=== PATIENT | female | born 1955 | race Caucasian/White ===

== ENCOUNTER 2022-05-09 15:45 | Outpatient (REF) | payer MEDICARE, MEDICAID, SELFPAY ==
--- NOTE | ~2022-05-09 | XR_ITS ---
EXAMINATION: XR FEMUR, RIGHT XR LUMBAR SPINE CLINICAL INFORMATION: Right leg pain. COMPARISON: None TECHNIQUE: Lumbar spine 3 views. Right femur 2 views. FINDINGS: RIGHT FEMUR: There is severe loss of right hip joint space with subchondral cystic changes and sclerosis. The rest of the right femur is intact. No periosteal elevation or erosion changes. The soft tissues are normal. LUMBAR SPINE: There is normal lumbar lordosis. The vertebral heights and alignment are normal. There is moderate loss of L1-L2 disc height with endplate sclerosis. Rest of the disc heights are normal. There is mild L5-S1 facet joint arthropathy and hypertrophy. No visible acute fracture, dislocation or lytic process seen. XR/XR femur RT 2V IMPRESSION: Severe degenerative arthritic changes right hip joint. No acute fracture or dislocation right hip. The right femur is unremarkable. Moderate degenerative changes L1-L2 disc level. There is bilateral L5-S1 facet joint arthropathy and hypertrophy.
--- NOTE | ~2022-05-09 | XR_ITS ---
EXAMINATION: XR FEMUR, RIGHT XR LUMBAR SPINE CLINICAL INFORMATION: Right leg pain. COMPARISON: None TECHNIQUE: Lumbar spine 3 views. Right femur 2 views. FINDINGS: RIGHT FEMUR: There is severe loss of right hip joint space with subchondral cystic changes and sclerosis. The rest of the right femur is intact. No periosteal elevation or erosion changes. The soft tissues are normal. LUMBAR SPINE: There is normal lumbar lordosis. The vertebral heights and alignment are normal. There is moderate loss of L1-L2 disc height with endplate sclerosis. Rest of the disc heights are normal. There is mild L5-S1 facet joint arthropathy and hypertrophy. No visible acute fracture, dislocation or lytic process seen. XR/XR lumbar spine 2-3V IMPRESSION: Severe degenerative arthritic changes right hip joint. No acute fracture or dislocation right hip. The right femur is unremarkable. Moderate degenerative changes L1-L2 disc level. There is bilateral L5-S1 facet joint arthropathy and hypertrophy.
== END 2022-05-09 15:46 | disposition home or self-care (01) ==
LOC: HO.XRAY 15:45
PROVIDERS: PCP Pediatrics; Visit Provider General Practice
DX: M79.604 Pain in right leg (principal)
CPT/HCPCS: 72100; 73552

== ENCOUNTER 2022-06-10 09:41 | Outpatient (REF) | payer MEDICARE, MEDICAID, SELFPAY ==
--- NOTE | ~2022-06-10 | XR_ITS ---
EXAMINATION: XR PELVIS CLINICAL INFORMATION: Pain COMPARISON: Right femur x-ray April 2022 TECHNIQUE: AP view of the pelvis. FINDINGS: There is severe arthritis of the right hip joint with joint space narrowing, osteophyte formation and subchondral cyst formation. There is moderate arthritis of the left hip joint. Bones of the pelvis are normal. There are degenerative changes of the lower lumbar spine. Soft tissues are unremarkable. XR/XR pelvis 1-2V IMPRESSION: Bilateral hip arthritis, right greater than left.
== END 2022-06-10 09:42 | disposition home or self-care (01) ==
LOC: HO.HOSX 09:41
PROVIDERS: Visit Provider Orthopaedic Surgery
DX: M16.11 Unilateral primary osteoarthritis, right hip (principal)
CPT/HCPCS: 72170; 99202

== ENCOUNTER 2022-07-02 23:38 | Emergency (ER) | payer MEDICARE, MEDICAID, SELFPAY ==
--- NOTE | ~2022-07-02 | CT_ITS ---
EXAMINATION: CT HEAD WITHOUT CONTRAST CLINICAL INFORMATION: Confusion COMPARISON: None. TECHNIQUE: Contiguous axial imaging was performed from the skull base to vertex without intravenous contrast. This CT examination was performed using dose optimization techniques as appropriate, variously including the following: * Automated exposure control * Adjustment of mA and/or kV according to patient size (this includes techniques or standardized protocols for targeted exams where dose is matched to indication/reason for exam; i.e. extremities or head) Use of iterative reconstruction technique DLP: 567 mGy-cm. FINDINGS: There is no evidence of acute intracranial hemorrhage or territorial infarction. No abnormal mass effect or midline shift is seen. Doty to white matter differentiation is well preserved. No extra-axial fluid collections are identified. No hydrocephalus. No significant volume loss. There is no abnormal attenuation within the brain parenchyma. The osseous structures and soft tissues are normal. Partially opacified left sphenoid sinus and bilateral ethmoid air cells. The mastoid air cells and visualized portions of the paranasal sinuses are otherwise well aerated. CT/CT head/brain wo IV con IMPRESSION: No acute intracranial pathology.
--- NOTE | ~2022-07-02 | XR_ITS ---
EXAMINATION: XR CHEST CLINICAL INFORMATION: Weakness COMPARISON: None TECHNIQUE: Frontal view of the chest was obtained. FINDINGS: The lungs are well-expanded and clear. Heart size and pulmonary vascularity is normal. No gross bony abnormality seen. XR/XR chest 1V IMPRESSION: Unremarkable chest exam.
--- NOTE | 2022-07-02 23:53 | ECG_ITS ---
Test Reason : medical Clerance Blood Pressure : / mmHG Vent. Rate : 068 BPM Atrial Rate : 068 BPM P-R Int : 128 ms QRS Dur : 066 ms QT Int : 420 ms P-R-T Axes : 072 037 065 degrees QTc Int : 446 ms Normal sinus rhythm Normal ECG No previous ECGs available Referred By: Irasema Desai Electronically Signed By:ULYSSES DURON
[2022-07-02 23:55] VITALS: BP 137/83; PULSE 87; RESP 22; TEMP 36.8; O2SAT 96; BMI 26.5
--- NOTE | 2022-07-02 23:57 | ED_ITS ---
HPI - Weakness General Chief complaint: Psychiatric Symptoms Stated complaint: ALTERED ? COVID PER EMS Time Seen by Provider: 07/02/22 23:53 Source: patient Mode of arrival: EMS Limitations: no limitations History of Present Illness HPI Narrative: 66 yo female with hx of anxiety, bipolar, arthritis, asthma, hypothyroidism comes in with c/o not feeling well this week with cough and fevers - her partner told her she most likely has COVID - no home tests reported. She also notes she is not vaccinated. She is distraught and having anxiety due to the fact that her landlord is increasing her rent and she has lived there a long time. She thinks they are doing this to get her to leave. She does not want to leave and has planned to stay there forever. She states because of this she stopped taking all of her medications to at home MD Complaint: lack of energy (URI symptoms, anxiety over rent increase and not taking her meds to at home. ) Onset (ago): day(s) (unsure but states this week ) Duration: progressively worsening Location: generalized Severity: moderate Quality: dull Relieving factors: none Exacerbating factors: other (stress) Context: depression and other (life stress) Associated symptoms: fever/chills, loss of appetite and other (runny nose) Related Data Home Medications Medication Instructions Recorded Confirmed acetaminophen 650 mg 1 tab PO Q8H PRN pain 07/03/22 07/03/22 tablet,extended release albuterol sulfate 90 mcg/actuation 2 puff inhalation Q4H 07/03/22 07/03/22 aerosol inhaler calcium carbonate 600 mg-vitamin 1 tab PO BID 07/03/22 07/03/22 D3 10 mcg (400 unit) tablet lamotrigine 100 mg tablet 1 tab PO TID 07/03/22 07/03/22 levothyroxine 50 mcg tablet 1 tab PO DAILY 07/03/22 07/03/22 meloxicam 7.5 mg tablet 1 tab PO BID 07/03/22 07/03/22 oxcarbazepine 150 mg tablet 1 tab PO DAILY 07/03/22 07/03/22 oxybutynin chloride 15 mg 1 tab PO DAILY 07/03/22 07/03/22 tablet,extended release 24 hr paroxetine HCl 20 mg tablet 1 tab PO DAILY 07/03/22 07/03/22 tolterodine 4 mg capsule,extended 1 cap PO DAILY 07/03/22 07/03/22 release 24 hr Allergies Allergy/AdvReac Type Severity Reaction Status Date / Time penicillin V Allergy Unknown Verified 03/08/13 00:00 Review of Systems Review of Systems: Constitutional : No Fever, pos Chills ENT/Mouth : No Ear Pain, pos Nasal Congestion, No sore throat Eyes: No Eye Pain, No Swelling, No Redness Cardiovascular : No Chest Pain, No SOB Respiratory : pos Cough, No Sputum, No Dyspnea Gastrointestinal : No Nausea, No Vomiting, No Diarrhea, No Hematochezia, No Melena Genitourinary : No Dysuria, No Urinary Frequency, No Hematuria Musculoskeletal : No Myalgias Skin : No Skin Lesions, No rash Neuro : pos Weakness, No Numbness, No Paresthesias, No Dizziness, No Headache Psych : positive Anxiety, positive Depression, positive SI no HI Heme/Lymph: No Lymphadenopathy Endocrine : No Polyuria, No Polydipsia All other systems reviewed and are negative [facility] Past Medical History Attestation statement: The following information was validated with the patient. Medical History Asthma Bipolar disorder Hypothyroid Osteoarthritis of right hip Social History Social History (Updated 07/02/22 @ 23:57 by Irasema Desai DO) Patient Tobacco Use Status: Tobacco use Unknown Advance Directives: No Current occupational status: retired Physical Exam Vital Signs: Vital Signs: Last Vital Signs Temp 97.8 F 07/03/22 02:27 Pulse 71 07/03/22 02:27 Resp 17 07/03/22 02:27 BP 139/79 07/03/22 02:27 Pulse Ox 97 07/03/22 02:27 O2 Del Method 07/03/22 02:27 BMI result Body Mass Index 26.5 Appearance: Alert. Oriented X3 ( slow to respond initially). Anxious tremulous mild acute distress. Eyes: Pupils equal, round and reactive to light. ENT: Pharynx normal. Neck: Normal inspection. Neck supple. CVS: Normal heart rate and rhythm. Pulses normal. Respiratory: No respiratory distress. Breath sounds normal. Abdomen: Soft and non-tender. Skin: Skin warm and dry. Normal skin color. Normal skin turgor. Extremities: No lower extremity edema. No calf ttp Neuro: Oriented X 3. No motor deficit. No sensory deficit. CN 2-12 intact Course Course Course Narrative: + COVID no hypoxia no pneumonia will obtain CT head given intermittent confusion at home CT head negative Physician observation started at 250am. Patient placed in physician observation because the patient needed more time for BHN to assess need for psych admission. At the time observation was started the patient's vitals were stable, patient is alert and oriented but anxious Neuro: nonfocal, CV RRR, Lungs clear MDM - Weakness MDM Narrative Medical decision making narrative: 66 yo female with hx of anxiety, bipolar, arthritis, asthma, hypothyroidism here with c/o URI symptoms and concerned she has COVID she is not vaccinated - test ordered no hypoxia will also obtain CXR. At this time she also admits to SI due to issues with landlord - once medically cleared will need BHN consult Lab Data Result diagrams: 07/03/22 01:11 07/03/22 01:11 Labs: Lab Results 07/02/22 07/03/22 07/03/22 Range/Units 23:56 00:15 01:11 WBC 3.3 L (4.8-10.8) X10*3/uL RBC 4.24 (4.20-5.50) X10*6/uL Hgb 12.9 (12.0-16.0) g/dl Hct 36.7 L (37.0-47.0) % MCV 86.6 (80.0-98.0) fL MCH 30.4 (27.0-33.0) pg MCHC 35.1 H (31.0-35.0) g/dl RDW 12.4 (11.0-16.0) % Plt Count 162 (160-400) X10*3/uL MPV 10.5 (9.4-12.3) fL Immature Gran % (Auto) 0.6 H (0.0-0.4) % Neut % (Auto) 50.8 (45-73) % Lymph % (Auto) 32.1 (20-40) % [place] % (Auto) 15.9 H (2-11) % Eos % (Auto) 0.0 (0-4) % Baso % (Auto) 0.6 (0-2) % Lymph # (Auto) 1.1 L (1.2-4.9) X10*3/uL [place] # (Auto) 0.5 (0.1-1.2) X10*3/uL Eos # (Auto) 0.0 (0.0-0.4) X10*3/uL Baso # (Auto) 0.0 (0.0-0.2) X10*3/uL Abs Immat Gran (auto) 0.02 (0.00-0.03) X10*3/uL Absolute Neuts (auto) 1.7 L (2.0-8.3) x10*3/uL Absolute Nucleated RBC 0.000 (0.0-0.012) X10*3/uL Nucleated RBC % (auto) 0.0 (0.0-0.2) /100WBC Sodium (135-145) mmol/L Potassium (3.3-5.1) mmol/L Chloride (96-108) mmol/L Carbon Dioxide (22-29) mmol/L Anion Gap (12-20) BUN (9-16) mg/dL Creatinine (0.5-1.4) mg/dL Estim Creat Clear Calc Estimated GFR POC Glucose 133 H (60-115) mg/dL Random Glucose (60-115) mg/dL Calcium (8.4-10.2) mg/dL Magnesium (1.6-2.6) mg/dL Total Bilirubin (0.0-1.0) mg/dL Direct Bilirubin (0.0-0.5) mg/dL AST (5-31) U/L ALT (0-31) U/L Alkaline Phosphatase (39-117) U/L Troponin I High Sens (<3.5-17.0) ng/L Total Protein (6.5-8.0) g/dL Albumin (3.5-5.0) g/dL Lipase (8-78) U/L TSH (0.32-4.0) uIU/mL COVID-19 (SHERLY) Positive A (Negative) COVID-19 Clin Com See Note 07/03/22 07/03/22 07/03/22 Range/Units 01:11 01:11 01:11 WBC (4.8-10.8) X10*3/uL RBC (4.20-5.50) X10*6/uL Hgb (12.0-16.0) g/dl Hct (37.0-47.0) % MCV (80.0-98.0) fL MCH (27.0-33.0) pg MCHC (31.0-35.0) g/dl RDW (11.0-16.0) % Plt Count (160-400) X10*3/uL MPV (9.4-12.3) fL Immature Gran % (Auto) (0.0-0.4) % Neut % (Auto) (45-73) % Lymph % (Auto) (20-40) % [place]phill % (Auto) (2-11) % Eos % (Auto) (0-4) % Baso % (Auto) (0-2) % Lymph # (Auto) (1.2-4.9) X10*3/uL [place] # (Auto) (0.1-1.2) X10*3/uL Eos # (Auto) (0.0-0.4) X10*3/uL Baso # (Auto) (0.0-0.2) X10*3/uL Abs Immat Gran (auto) (0.00-0.03) X10*3/uL Absolute Neuts (auto) (2.0-8.3) x10*3/uL Absolute Nucleated RBC (0.0-0.012) X10*3/uL Nucleated RBC % (auto) (0.0-0.2) /100WBC Sodium 140 (135-145) mmol/L Potassium 3.6 (3.3-5.1) mmol/L Chloride 108 (96-108) mmol/L Carbon Dioxide 17 L (22-29) mmol/L Anion Gap 19 (12-20) BUN 12 (9-16) mg/dL Creatinine 1.03 (0.5-1.4) mg/dL Estim Creat Clear Calc 48.5 Estimated GFR 54 POC Glucose (60-115) mg/dL Random Glucose 111 (60-115) mg/dL Calcium 9.0 (8.4-10.2) mg/dL Magnesium 1.7 (1.6-2.6) mg/dL Total Bilirubin 0.6 (0.0-1.0) mg/dL Direct Bilirubin 0.2 (0.0-0.5) mg/dL AST 22 (5-31) U/L ALT 16 (0-31) U/L Alkaline Phosphatase 63 (39-117) U/L Troponin I High Sens 4.2 (<3.5-17.0) ng/L Total Protein 6.7 (6.5-8.0) g/dL Albumin 4.4 (3.5-5.0) g/dL Lipase 11 (8-78) U/L TSH 1.09 (0.32-4.0) uIU/mL COVID-19 (SHERLY) (Negative) COVID-19 Clin Com ECG Data Attestation: I personally reviewed and interpreted this ECG as follows: ECG interpretation date: 07/03/22 ECG interpretation time: 01:07 Interpretation: Rate: 68 Rhythm: NSR [place]: normal Normal P waves. Normal BRIDGETTE. Normal QRS complex. ST T wave : t wave inversions V1-V2 no SERGEI qTC: normal prior studies: no acute ischemia no priors The study has been interpreted contemporaneously by me. . Discharge Plan Discharge Clinical Impression: Suicidal ideation, Anxiety attack, COVID-19 Patient Disposition: Still a Patient Prescriptions: No Action oxcarbazepine 150 mg tablet 1 tab PO DAILY oxybutynin chloride 15 mg tablet extended release 24hr 1 tab PO DAILY tolterodine 4 mg capsule,extended release 24hr 1 cap PO DAILY acetaminophen 650 mg tablet extended release 1 tab PO Q8H PRN (Reason: pain) meloxicam 7.5 mg tablet 1 tab PO BID levothyroxine 50 mcg tablet 1 tab PO DAILY paroxetine HCl 20 mg tablet 1 tab PO DAILY albuterol sulfate 90 mcg/actuation HFA aerosol inhaler 2 puff INHALATION Q4H lamotrigine 100 mg tablet 1 tab PO TID calcium carbonate-vitamin D3 600 mg-10 mcg (400 unit) tablet 1 tab PO BID
[2022-07-03 00:14] LABS: COVID-19 Test Positive (Negative)
[2022-07-03 00:20] LABS: Glucose, Whole Blood 133 mg/dL (60-115)
[2022-07-03 01:15] LABS: MANUAL DIFF FLAG NO
[2022-07-03 01:16] LABS: Basophils Percent Auto 0.6 % (0-2); Hematocrit 36.7 % (37.0-47.0); Hemoglobin 12.9 g/dl (12.0-16.0); Imm Gran Abs Auto 0.02 X10*3/uL (0.00-0.03); Imm Gran Pct Auto 0.6 % (0.0-0.4); Lymphocytes Absolute Auto 1.1 X10*3/uL (1.2-4.9); Lymphocytes Percent Auto 32.1 % (20-40); Mean Corpuscular HGB Conc 35.1 g/dl (31.0-35.0); Mean Corpuscular Hemoglobin 30.4 pg (27.0-33.0); Mean Corpuscular Volume 86.6 fL (80.0-98.0); Mean Platelet Volume 10.5 fL (9.4-12.3); Monocytes Absolute Auto 0.5 X10*3/uL (0.1-1.2); Monocytes Percent Auto 15.9 % (2-11); Neutrophils Absolute Auto 1.7 x10*3/uL (2.0-8.3); Neutrophils Percent Auto 50.8 % (45-73); Platelet Count 162 X10*3/uL (160-400); Red Blood Count 4.24 X10*6/uL (4.20-5.50); Red Cell Distribution Width 12.4 % (11.0-16.0); White Blood Count 3.3 X10*3/uL (4.8-10.8)
[2022-07-03 01:35] LABS: Troponin-I High Sensitivity 4.2 ng/L (<3.5-17.0)
[2022-07-03 01:37] LABS: Alanine Aminotransferase 16 U/L (0-31); Albumin Level 4.4 g/dL (3.5-5.0); Alkaline Phosphatase 63 U/L (39-117); Anion Gap 19 (12-20); Aspartate Amino Transferase 22 U/L (5-31); Bilirubin Direct 0.2 mg/dL (0.0-0.5); Bilirubin Total 0.6 mg/dL (0.0-1.0); Blood Urea Nitrogen 12 mg/dL (9-16); Carbon Dioxide 17 mmol/L (22-29); Chloride 108 mmol/L (96-108); Creatinine Clr Calc Pharmacy 48.5; Estimated Glomerular Filt Rate 54; Glucose Random 111 mg/dL (60-115); Lipase 11 U/L (8-78); Magnesium 1.7 mg/dL (1.6-2.6); Potassium 3.6 mmol/L (3.3-5.1); Sodium 140 mmol/L (135-145); Total Protein 6.7 g/dL (6.5-8.0)
[2022-07-03 01:57] LABS: TSH reflex Free T4 1.09 uIU/mL (0.32-4.0)
[2022-07-03] MEDS: Acetaminophen 325 MG TABLET 650 MG PO (02:22)
[2022-07-03] MEDS: ALPRAZolam 0.5 MG TABLET PO (02:23)
[2022-07-03 02:27] VITALS: BP 139/79; PULSE 71; RESP 17; TEMP 36.6; O2SAT 97
[2022-07-03 06:14] VITALS: BP 121/81; PULSE 82; RESP 18; O2SAT 97
--- NOTE | 2022-07-03 06:20 | PC.NURSE ---
pt awake, A&Ox3, speaking clear full sentences. pt very tearful talking about her past and her current life stressors. pt states she did not mean it when she said she didnt want to live anymore. she said she only stopped taking her meds because it was all too overwhelming and whats the point. pt regretful, denying SI/HI. calm and cooperative. eating sandwich and drinking shaheen joan.
--- NOTE | 2022-07-03 07:13 | PHA.MEDREC ---
Pharmacy Consult ? Medication Reconciliation Pharmacy has reviewed the medication reconciliation done by Keon.
--- NOTE | 2022-07-03 07:18 | MHC.CARE ---
Skye Smart sheet submitted
[2022-07-03] MEDS: NaPROXEN 250 MG TABLET PO (09:49)
[2022-07-03] MEDS: PARoxetine HCL 20 MG TABLET PO (09:50)
[2022-07-03] MEDS: Calcium + Vitamin D 250 MG TABLET 500 MG PO (09:51)
[2022-07-03] MEDS: OXcarbazepine 150 MG TABLET 750 MG PO (09:52)
[2022-07-03] MEDS: Levothyroxine Sodium 50 MCG TABLET PO (09:53)
[2022-07-03] MEDS: Tolterodine Tartrate LA 4 MG CAP.ER.24H PO (09:54)
[2022-07-03] MEDS: lamoTRIgine 100 MG TABLET PO ×2 (09:54→14:52)
[2022-07-03] MEDS: Albuterol Sulfate 90 MCG 8 GM INHALER 2 PUFF INHALE ×2 (13:36→16:10)
[2022-07-03 13:59] VITALS: BP 119/69; PULSE 83; RESP 16; TEMP 36.8; O2SAT 98
[2022-07-03] MEDS: Cyclobenzaprine HCl 10 MG TABLET PO (14:52)
== END 2022-07-03 17:14 | disposition home or self-care (01) ==
PROVIDERS: Emergency Provider Emergency Medicine
DX: F41.1 Generalized anxiety disorder (principal); F43.0 Acute stress reaction; R45.851 Suicidal ideations; U07.1 COVID-19; R50.9 Fever, unspecified; R05.9 Cough, unspecified; R51.9 Headache, unspecified; Z79.899 Other long term (current) drug therapy
CPT/HCPCS: 36415; 70450; 71045; 80048; 80076; 82947; 83690; 83735; 84443; 84484; 85025; 87635; 93005; 99285

== ENCOUNTER 2022-07-07 20:39 | Emergency (ER) | payer MEDICARE, MEDICAID, SELFPAY ==
--- NOTE | ~2022-07-07 | XR_ITS ---
EXAMINATION: XR CHEST CLINICAL INFORMATION: Covid positive. Cough. Shortness of breath. COMPARISON: Chest x-ray 07/03/2022 TECHNIQUE: Frontal portable view of the chest was obtained. 9:35 PM FINDINGS: Lungs are clear. No pulmonary vascular congestion. There is no pleural effusion. The heart size is normal. The cardiac and mediastinal contours are normal. There are calcifications of the thoracic aorta. There are multilevel degenerative changes of dorsal spine. XR/XR chest 1V IMPRESSION: Unremarkable examination.
[2022-07-07 21:11] VITALS: BP 137/74; BP 142/82; PULSE 78; PULSE 82; RESP 14; TEMP 36.5; O2SAT 98; BMI 21.0
--- NOTE | 2022-07-07 21:40 | ED.ABDPAIN ---
HPI - Abdominal Pain General Chief Complaint: Abdominal Pain Stated Complaint: ABD PAIN Time Seen by Provider: 07/07/22 21:11 Source: patient Mode of arrival: EMS Limitations: no limitations History of Present Illness HPI narrative: 66-year-old female who presents emergency department for evaluation of multiple complaints. The patient was see your emergency department on 07/02/2022 for anxiety secondary to social stressors and having stopped all her medications. Patient also had an upper respiratory infection 1-2 days prior to presentation. The patient was found to be COVID-19 positive, she was not vaccinated COVID. The patient restarted her medications but states that her anxiety is still severe. The patient came to emergency department by ambulance this evening for evaluation headache, abdominal pain,diarrhea and feeling weak. She states that she has a ?rushing ?sensation in her head whenever she stands up. This was present during her last visit and she did have a negative CT scan of the brain. She states that the symptoms is intermittent and only there when she stands up, the symptom is [id number] in intensity. Patient also states that she has had a cough which is nonproductive. She has had subjective fever but no chills. She has had rhinorrhea. She denied chest pain, shortness of breath or dyspnea on exertion. She denied nausea or vomiting. She states that she has multiple episodes of green diarrheal stool daily. She states she is having abdominal pain x5 days and she points to her suprapubic area when asked to localize the pain. She states that it is a sharp stabbing pain which was initially intermittent but is now constant and is 5/10 at its worst. She denied frequency, urgency or diarrhea. The patient states she has been eating and drinking well. She states she is very anxious but is not suicidal or homicidal. MD elicited complaint: abdominal pain Pertinent past history: none Onset (ago): week(s) (5) Location: suprapubic Severity: moderate Pain scale (0-10): 5 Quality: sharp Radiation: none Migration to: no migration Exacerbating factors: nothing Relieving factors: nothing Associated symptoms: diarrhea, fever, chills and other (COVID-19 positive-nonproductive cough) Related Data Home Medications Medication Instructions Recorded Confirmed acetaminophen 650 mg 1 tab PO Q8H PRN pain 07/03/22 07/03/22 tablet,extended release albuterol sulfate 90 mcg/actuation 2 puff inhalation Q4H 07/03/22 07/03/22 aerosol inhaler calcium carbonate 600 mg-vitamin 1 tab PO BID 07/03/22 07/03/22 D3 10 mcg (400 unit) tablet lamotrigine 100 mg tablet 1 tab PO TID 07/03/22 07/03/22 levothyroxine 50 mcg tablet 1 tab PO DAILY 07/03/22 07/03/22 meloxicam 7.5 mg tablet 1 tab PO BID 07/03/22 07/03/22 oxcarbazepine 150 mg tablet 5 tab PO BEDTIME 07/03/22 07/03/22 oxybutynin chloride 15 mg 1 tab PO DAILY 07/03/22 07/03/22 tablet,extended release 24 hr paroxetine HCl 20 mg tablet 1 tab PO DAILY 07/03/22 07/03/22 tolterodine 4 mg capsule,extended 1 cap PO DAILY 07/03/22 07/03/22 release 24 hr Previous Rx's Medication Instructions Recorded cefuroxime axetil 250 mg tablet 250 mg PO BID uti 7 days #14 tabs 07/03/22 Allergies Allergy/AdvReac Type Severity Reaction Status Date / Time penicillin V Allergy Unknown Verified 03/08/13 00:00 Review of Systems Review of Systems Yes all other systems are reviewed and are negative [facility] Past Medical History [facility] Narrative: Past medical history: COVID positive 07/02/2022, not vaccinated against COVID 19. Past surgical history: Appendectomy, tonsillectomy. Social history: She denies tobacco use. She denies alcohol use. She denies drug use. Medical History Asthma Bipolar disorder Hypothyroid Osteoarthritis of right hip Social History Social History Patient Tobacco Use Status: Tobacco use Unknown Advance Directives: No Advance Directives Information Provided: No Current occupational status: retired Physical Exam ED Vital Signs: Vital Signs - 24 hr 07/07/22 21:11 Temperature 97.7 F Pulse Rate 78 Respiratory Rate 14 Blood Pressure 137/74 Pulse Oximetry 98 Oxygen Delivery Method Room Air BMI result Body Mass Index 21.0 Const Other: Awake, alert, female patient, she is very anxious, she is tremulous, she is pleasant and cooperative, she answers all questions appropriately, she does not appear to be in distress Orientation/consciousness: oriented to person and oriented to place HENNC Head: Yes normal to inspection, Yes normocephalic and Yes atraumatic Ears: external ears normal General nose exam: Normal external nose present Face and sinus: Yes normal facial exam Mouth: Normal oral and palatal mucosa present Throat: Yes posterior oropharynx normal Eyes General: appearance normal, both eyes and all related structures Pupils: Equal, round and reactive pupils present Neck Neck: Yes normal visual inspection, Yes no lymphadenopathy, Yes trachea midline and Yes supple Chest Chest palpation & inspection: normal inspection of the chest and normal palpation of entire chest wall Resp Effort & Inspection: normal respiratory effort and able to speak in complete sentences Auscultation: clear to auscultation bilaterally Cardio Rate: regular rate Rhythm: regular rhythm Heart sounds: S1 normal heart sound present, S2 normal heart sound present and no murmurs GI Inspection: Yes normal to inspection Palpation (GI): Soft to palpation, Tenderness to palpation present (GI) suprapubicly (Mild to moderate) and no guarding Auscultation: normal bowel sounds General: Yes no CVA tenderness Back/Spine/Pelvis Back: no CVA tenderness Skin General skin exam: no rashes or lesions noted Neuro General: oriented to person and oriented to place Cranial nerves: Yes CN's II-XII intact bilaterally and Yes Equal, round and reactive pupils present Cognition (Neuro): normal cognition Motor exam (neuro): 5/5 motor strength present throughout Extrem General: Yes normal to inspection Psych Appearance: grossly normal and well kempt Speech and movement: Normal speech and movement present Affect: Anxious affect present Attitude: cooperative Thought process: Normal thought process present Thought content: Normal thought content present Course Course Course Narrative: 66-year-old female who has a history of anxiety who was here in the emergency department on 07/02/2022 (5 days prior to evaluation ) for anxiety secondary to social structures and secondary to being non- complained with medications. During that visit she also URI symptoms and was found to be COVID positive. Patient returns today for evaluation of a head rushing sensation whenever she stands, subjective fever, nonproductive cough, suprapubic pain which was initially intermittent but now constant. The patient has been able to eat and drink without any difficulty. She denied chest pain, shortness of breath or dyspnea on exertion. She is experiencing multiple episodes of diarrhea daily. Patient's vital signs were normal with a room air O2 saturation of 98%. The patient's physical examination did reveal suprapubic tenderness otherwise was unremarkable. I did order laboratory evaluation includes CBC, CMP, PT/INR, PTT, lipase, urinalysis. I will obtain a chest x-ray on the patient. Patient was ordered to get normal saline x1 L and Toradol 15 mg IV for her abdominal pain. Patient was also given Ativan 1 mg orally. 2242: Laboratory evaluation: WBC normal 4900. Anemia with an H&H of 12 and 35-chronic. Creatinine elevated 1.47. LFTs normal. Lipase not elevated. Radiology evaluation: Chest x-ray, one view: Radiologist impression: Unremarkable examination. Patient is feeling better after the above treatment. Patient's symptoms are consistent with COVID-19 infection, at this time I do not think the patient has pneumonia in do not think this needs to be hospitalized. I did discuss isolation in on vaccinated patient's with her. I told her she should isolate at home for at least 10 days and she should have no fever for at least 24 hours before she ends isolation. She was given printed and verbal instructions and discharged home. MDM - Abdominal Pain Lab Data Result diagrams: 07/07/22 22:02 07/07/22 22:02 Labs: Lab Results 07/07/22 07/07/22 07/07/22 Range/Units 22:02 22:02 22:02 WBC 4.9 (4.8-10.8) X10*3/uL RBC 4.12 L (4.20-5.50) X10*6/uL Hgb 12.4 (12.0-16.0) g/dl Hct 35.2 L (37.0-47.0) % MCV 85.4 (80.0-98.0) fL MCH 30.1 (27.0-33.0) pg MCHC 35.2 H (31.0-35.0) g/dl RDW 12.2 (11.0-16.0) % Plt Count 210 D (160-400) X10*3/uL MPV 9.9 (9.4-12.3) fL Immature Gran % (Auto) 0.6 H (0.0-0.4) % Neut % (Auto) 51.0 (45-73) % Lymph % (Auto) 36.6 (20-40) % [place] % (Auto) 10.4 (2-11) % Eos % (Auto) 0.8 (0-4) % Baso % (Auto) 0.6 (0-2) % Lymph # (Auto) 1.8 (1.2-4.9) X10*3/uL [place] # (Auto) 0.5 (0.1-1.2) X10*3/uL Eos # (Auto) 0.0 (0.0-0.4) X10*3/uL Baso # (Auto) 0.0 (0.0-0.2) X10*3/uL Abs Immat Gran (auto) 0.03 (0.00-0.03) X10*3/uL Absolute Neuts (auto) 2.5 (2.0-8.3) x10*3/uL Absolute Nucleated RBC 0.000 (0.0-0.012) X10*3/uL Nucleated RBC % (auto) 0.0 (0.0-0.2) /100WBC PT 10.8 (10.0-13.1) SEC INR 0.9 (0.9-1.1) APTT 22.7 L (26.0-36.4) SEC Sodium 142 (135-145) mmol/L Potassium 3.4 (3.3-5.1) mmol/L Chloride 107 (96-108) mmol/L Carbon Dioxide 24 (22-29) mmol/L Anion Gap 14 (12-20) BUN 10 (9-16) mg/dL Creatinine 1.47 H (0.5-1.4) mg/dL Estim Creat Clear Calc 30.2 Estimated GFR 36 Random Glucose 111 (60-115) mg/dL Lactic Acid (0.5-2.0) mmol/L Calcium 10.3 H D (8.4-10.2) mg/dL Total Bilirubin 0.6 (0.0-1.0) mg/dL AST 17 (5-31) U/L ALT 13 (0-31) U/L Alkaline Phosphatase 55 (39-117) U/L Total Protein 6.7 (6.5-8.0) g/dL Albumin 4.5 (3.5-5.0) g/dL Lipase 20 (8-78) U/L 07/07/22 Range/Units 22:02 WBC (4.8-10.8) X10*3/uL RBC (4.20-5.50) X10*6/uL Hgb (12.0-16.0) g/dl Hct (37.0-47.0) % MCV (80.0-98.0) fL MCH (27.0-33.0) pg MCHC (31.0-35.0) g/dl RDW (11.0-16.0) % Plt Count (160-400) X10*3/uL MPV (9.4-12.3) fL Immature Gran % (Auto) (0.0-0.4) % Neut % (Auto) (45-73) % Lymph % (Auto) (20-40) % [place] % (Auto) (2-11) % Eos % (Auto) (0-4) % Baso % (Auto) (0-2) % Lymph # (Auto) (1.2-4.9) X10*3/uL [place] # (Auto) (0.1-1.2) X10*3/uL Eos # (Auto) (0.0-0.4) X10*3/uL Baso # (Auto) (0.0-0.2) X10*3/uL Abs Immat Gran (auto) (0.00-0.03) X10*3/uL Absolute Neuts (auto) (2.0-8.3) x10*3/uL Absolute Nucleated RBC (0.0-0.012) X10*3/uL Nucleated RBC % (auto) (0.0-0.2) /100WBC PT (10.0-13.1) SEC INR (0.9-1.1) APTT (26.0-36.4) SEC Sodium (135-145) mmol/L Potassium (3.3-5.1) mmol/L Chloride (96-108) mmol/L Carbon Dioxide (22-29) mmol/L Anion Gap (12-20) BUN (9-16) mg/dL Creatinine (0.5-1.4) mg/dL Estim Creat Clear Calc Estimated GFR Random Glucose (60-115) mg/dL Lactic Acid 1.2 (0.5-2.0) mmol/L Calcium (8.4-10.2) mg/dL Total Bilirubin (0.0-1.0) mg/dL AST (5-31) U/L ALT (0-31) U/L Alkaline Phosphatase (39-117) U/L Total Protein (6.5-8.0) g/dL Albumin (3.5-5.0) g/dL Lipase (8-78) U/L Discharge Plan Discharge Clinical Impression: Abdominal pain, Headache, Weakness, Acute dehydration, COVID-19 virus infection Patient Disposition: Home, Self-Care Instructions: COVID-19 (Coronavirus Disease 2019) (ED) Additional Instructions: Your blood work was unremarkable. The chest x-ray at this time shows that you do not have pneumonia which is reassuring. Take ibuprofen 200 mg pills, 3 pills every 6 hours as needed for pain or fever Take Tylenol (acetaminophen) 500 mg pills, 2 pills every 4 to 6 hours as needed for pain or fever Take Zofran ODT 4 mg pills, 1 pill dissolved in your mouth every 8 hours as needed for nausea and vomiting. You should isolate at home for at least 10 days, you need to have no fever for at least 24 hours at the end of your isolation,before you go out again. Increase your fluid intake to help prevent dehydration and that should hopefully help with your weakness as well pain Follow-up with your doctor in 2 days. Please return to the emergency department if your symptoms get worse or if you develop any symptoms that are concerning to you. Prescriptions: No Action oxcarbazepine 150 mg tablet 5 tab PO BEDTIME oxybutynin chloride 15 mg tablet extended release 24hr 1 tab PO DAILY tolterodine 4 mg capsule,extended release 24hr 1 cap PO DAILY acetaminophen 650 mg tablet extended release 1 tab PO Q8H PRN (Reason: pain) meloxicam 7.5 mg tablet 1 tab PO BID levothyroxine 50 mcg tablet 1 tab PO DAILY paroxetine HCl 20 mg tablet 1 tab PO DAILY albuterol sulfate 90 mcg/actuation HFA aerosol inhaler 2 puff INHALATION Q4H lamotrigine 100 mg tablet 1 tab PO TID calcium carbonate-vitamin D3 600 mg-10 mcg (400 unit) tablet 1 tab PO BID cefuroxime axetil 250 mg tablet 250 mg PO BID 7 Days Qty: 14 0RF
[2022-07-07 22:15] LABS: MANUAL DIFF FLAG NO
[2022-07-07 22:16] LABS: Basophils Percent Auto 0.6 % (0-2); Eosinophils Percent Auto 0.8 % (0-4); Hematocrit 35.2 % (37.0-47.0); Hemoglobin 12.4 g/dl (12.0-16.0); Imm Gran Abs Auto 0.03 X10*3/uL (0.00-0.03); Imm Gran Pct Auto 0.6 % (0.0-0.4); Lymphocytes Absolute Auto 1.8 X10*3/uL (1.2-4.9); Lymphocytes Percent Auto 36.6 % (20-40); Mean Corpuscular HGB Conc 35.2 g/dl (31.0-35.0); Mean Corpuscular Hemoglobin 30.1 pg (27.0-33.0); Mean Corpuscular Volume 85.4 fL (80.0-98.0); Mean Platelet Volume 9.9 fL (9.4-12.3); Monocytes Absolute Auto 0.5 X10*3/uL (0.1-1.2); Monocytes Percent Auto 10.4 % (2-11); Neutrophils Absolute Auto 2.5 x10*3/uL (2.0-8.3); Platelet Count 210 X10*3/uL (160-400); Red Blood Count 4.12 X10*6/uL (4.20-5.50); Red Cell Distribution Width 12.2 % (11.0-16.0); White Blood Count 4.9 X10*3/uL (4.8-10.8)
[2022-07-07] MEDS: LORazepam 1 MG TABLET PO (22:16)
[2022-07-07] MEDS: Ketorolac Tromethamine 15 MG/ML VIAL IVPUSH (22:16)
[2022-07-07 22:22] LABS: INTERNATIONAL NORM RATIO 0.9 (0.9-1.1); Prothrombin Time 10.8 SEC (10.0-13.1)
[2022-07-07] MEDS: 0.9 % Sodium Chloride 1,000 ML 999 ML IV (22:23)
[2022-07-07 22:27] LABS: Partial Thromboplastin Time 22.7 SEC (26.0-36.4)
[2022-07-07 22:28] LABS: Lactic Acid 1.2 mmol/L (0.5-2.0)
[2022-07-07 22:34] LABS: Alanine Aminotransferase 13 U/L (0-31); Albumin Level 4.5 g/dL (3.5-5.0); Alkaline Phosphatase 55 U/L (39-117); Anion Gap 14 (12-20); Aspartate Amino Transferase 17 U/L (5-31); Bilirubin Total 0.6 mg/dL (0.0-1.0); Blood Urea Nitrogen 10 mg/dL (9-16); Calcium 10.3 mg/dL (8.4-10.2); Carbon Dioxide 24 mmol/L (22-29); Chloride 107 mmol/L (96-108); Creatinine Clr Calc Pharmacy 30.2; Estimated Glomerular Filt Rate 36; Glucose Random 111 mg/dL (60-115); Lipase 20 U/L (8-78); Potassium 3.4 mmol/L (3.3-5.1); Sodium 142 mmol/L (135-145); Total Protein 6.7 g/dL (6.5-8.0)
== END 2022-07-08 00:50 | disposition home or self-care (01) ==
PROVIDERS: Emergency Provider Emergency Medicine Emergency Medical Services; PCP General Practice
DX: U07.1 COVID-19 (principal); R10.13 Epigastric pain; R51.9 Headache, unspecified; E86.0 Dehydration; F41.1 Generalized anxiety disorder; F43.0 Acute stress reaction; Z79.899 Other long term (current) drug therapy
CPT/HCPCS: 36415; 71045; 80053; 83605; 83690; 85025; 85610; 85730; 96374; 99284; J1885

== ENCOUNTER 2023-07-29 20:49 | Emergency (ER) | payer MEDICARE, MEDICAID, SELFPAY ==
[2023-07-29 20:56] VITALS: BP 130/78; PULSE 103; O2SAT 99
[2023-07-29 21:11] VITALS: BP 128/80; PULSE 84; RESP 16; TEMP 36.7; O2SAT 98; BMI 18.3
--- OUTSIDE RECORDS SUMMARY | 2023-07-29 21:40 | XMS_ITS | Continuity of Care Document ---
Author Name Unknown Organization [facility] ter Address [address] [place] [id number] Care Team Providers Care Tetryl Screen Operator Name Role Phone Laura Chapa MD Primary Care Physician [place] [facility] [place] 04/26/[address] [id number] Attending Physician: Laura Chapa MD Admitting Physician: Laura Chapa MD Referring Physician: Laura Chapa MD Allergies, Adverse Reactions, Alerts Substance Reaction Severity Status penicillins rash Active Immunizations Given and Recorded Vaccine Date Status Refusal Reason tetanus-diphtheria toxoids (Td) 06/02/16 Given pneumococcal 23-valent vaccine 03/01/12 Given Medications Detrol LA 4 mg oral capsule, extended release 1 capsule = 4 mg, By Mouth, Daily, # 30 capsule, 0 Refills, Maintenance, 06/04/16 13:20:54, ER Capsule Start Date: 06/04/16 Status: Ordered LaMICtal 100 mg oral tablet 300 mg, By Mouth, Daily, Refills 0, Maintenance, 06/04/16 13:10:40 Start Date: 06/04/16 Status: Ordered levothyroxine 0.05 mg oral tablet 1 tablet = 0.05 mg, By Mouth, Daily, 0 Refills, Maintenance Start Date: 02/28/12 Status: Ordered lithium 300 mg oral tablet 1 tablet = 300 mg, By Mouth, Daily at bedtime, 0 Refills, Maintenance Start Date: 02/28/12 Status: Ordered Paxil 20 mg oral tablet 1 tablet = 20 mg, By Mouth, Daily, 0 Refills, Maintenance Start Date: 02/28/12 Status: Ordered Trileptal 150 mg oral tablet 2 tablet = 300 mg, By Mouth, 2 times a day, 0 Refills, Maintenance Start Date: 03/21/12 Status: Ordered rosemary riley, See Instructions, # 1 each, Refills 0, Tot. Refills 0, Maintenance, assist with mobiltiy, 06/04/16 14:14:24, Compound Start Date: 06/04/16 Status: Ordered
--- NOTE | 2023-07-29 22:53 | ED.SKABFB ---
HPI - Skin/Abscess/Foreign Bdy General Chief complaint: General Medical Stated complaint: Broke out in hives paired w/ dry mouth Time Seen by Provider: 07/29/23 21:41 Source: patient Mode of arrival: ambulatory Limitations: no limitations History of Present Illness HPI narrative: 67 yo female with PMH of hypothyroidism, bipolar disorder, asthma here with two days of red pruritic urticaria on back and abdomen along with buttocks no exposures, medications or other known issues. MD complaint: rash Onset (ago): day(s) (2) Tetanus up to date: yes Location: generalized Severity: mild Quality: pruritic Relieving factors: none Exacerbating factors: none Context: none Associated symptoms: denies other symptoms Treatments prior to arrival: none Related Data Home Medications Medication Instructions Recorded Confirmed acetaminophen 650 mg 1 tab PO Q8H PRN pain 07/03/22 07/03/22 tablet,extended release albuterol sulfate 90 mcg/actuation 2 puff inhalation Q4H 07/03/22 07/03/22 aerosol inhaler calcium carbonate 600 mg-vitamin 1 tab PO BID 07/03/22 07/03/22 D3 10 mcg (400 unit) tablet lamotrigine 100 mg tablet 1 tab PO TID 07/03/22 07/03/22 levothyroxine 50 mcg tablet 1 tab PO DAILY 07/03/22 07/03/22 meloxicam 7.5 mg tablet 1 tab PO BID 07/03/22 07/03/22 oxcarbazepine 150 mg tablet 5 tab PO BEDTIME 07/03/22 07/03/22 oxybutynin chloride 15 mg 1 tab PO DAILY 07/03/22 07/03/22 tablet,extended release 24 hr paroxetine HCl 20 mg tablet 1 tab PO DAILY 07/03/22 07/03/22 tolterodine 4 mg capsule,extended 1 cap PO DAILY 07/03/22 07/03/22 release 24 hr Previous Rx's Medication Instructions Recorded cefuroxime axetil 250 mg tablet 250 mg PO BID uti 7 days #14 tabs 07/03/22 prednisone 20 mg tablet 40 mg (2 x 20 mg) PO DAILY 4 days 07/29/23 #8 tabs Allergies Allergy/AdvReac Type Severity Reaction Status Date / Time penicillin V Allergy Unknown Verified 03/08/13 00:00 Review of Systems Review of Systems: Constitutional : No Fever, No Chills Cardiovascular : No Chest Pain, No SOB Respiratory : No Cough, No Sputum Gastrointestinal : No Nausea, No Vomiting, No Diarrhea, No abdominal Pain Genitourinary : No Dysuria, No Hematuria Musculoskeletal : No joint pain, No Myalgias, No Joint Swelling Skin : No Skin Lesions, positive skin rash Neuro : No Weakness, No Numbness, No Headache Psych : No Anxiety, No Depression All other systems reviewed and are negative [facility] Past Medical History Attestation statement: The following information was validated with the patient. Medical History Asthma Hypothyroid Bipolar disorder Osteoarthritis of right hip Social History Social History Patient Tobacco Use Status: Tobacco use Unknown Advance Directives: No Advance Directives Information Provided: No Current occupational status: retired Physical Exam Vital Signs: Vital Signs: Last Vital Signs Temp 98.1 F 07/29/23 21:11 Pulse 84 07/29/23 21:11 Resp 16 07/29/23 21:11 BP 128/80 07/29/23 21:11 Pulse Ox 98 07/29/23 21:11 O2 Del Method Room Air 07/29/23 21:11 BMI result Body Mass Index 18.3 Appearance: Alert. Oriented X3. No acute distress. Eyes: Pupils equal, round and reactive to light. ENT: Pharynx normal. Neck: Normal inspection. Neck supple. CVS: Normal heart rate and rhythm. Pulses normal. Respiratory: No respiratory distress. Breath sounds normal. Abdomen: Soft and non-tender. Skin: Skin warm and dry. Normal skin color. red raised hives noted on posterior back and buttocks along flank and almost to shoulders mostly on the periphery Extremities: No lower extremity edema. Neuro: Oriented X 3. No motor deficit. No sensory deficit. Medical Decision Making Medical Decision Making [facility] Narrative: 67 yo female with PMH of hypothyroidism, bipolar disorder, asthma here with c/o itchy rash x 2 days without known exposure no other symptoms no resp issues - no signs of celllulitis will obtain CBC and likely start on oral medications as well as topical medications for allergy. Differential Diagnosis Differential Diagnoses: The differential diagnosis associated with the presentation includes hives, dermatitis Lab Data [facility] Lab Attestation statement: I reviewed the patient's lab results. mild drop in H/H VS stable no c/o GIB 07/29/23 22:46 Labs: Lab Results 07/29/23 Range/Units 22:46 WBC 9.0 (4.8-10.8) X10*3/uL RBC 3.42 L (4.20-5.50) X10*6/uL Hgb 10.6 L (12.0-16.0) g/dl Hct 30.2 L (37.0-47.0) % MCV 88.3 (80.0-98.0) fL MCH 31.0 (27.0-33.0) pg MCHC 35.1 H (31.0-35.0) g/dl RDW 13.2 (11.0-16.0) % Plt Count 307 D (160-400) X10*3/uL MPV 10.0 (9.4-12.3) fL Immature Gran % (Auto) Cancelled Neut % (Auto) Cancelled Lymph % (Auto) Cancelled [place] % (Auto) Cancelled Eos % (Auto) Cancelled Baso % (Auto) Cancelled Lymph # (Auto) Cancelled [place] # (Auto) Cancelled Eos # (Auto) Cancelled Baso # (Auto) Cancelled Abs Immat Gran (auto) Cancelled Absolute Neuts (auto) Cancelled Absolute Nucleated RBC 0.000 (0.0-0.012) X10*3/uL Nucleated RBC % (auto) 0.0 (0.0-0.2) /100WBC External Record Review External record reviewed: Inpatient record Prescription Management I considered prescription management with: Other Discharge Plan Discharge Clinical Impression: Urticaria Patient Disposition: Home, Self-Care Instructions: Urticaria (ED) Additional Instructions: take the prednisone with food. return for worsening rash, difficulty breathing, or any other concerns. platelets were normal. please talk to your doctor this week you might need a dermatology referral Prescriptions: New prednisone 20 mg tablet 40 mg PO DAILY 4 Days Qty: 8 0RF No Action oxcarbazepine 150 mg tablet 5 tab PO BEDTIME oxybutynin chloride 15 mg tablet extended release 24hr 1 tab PO DAILY tolterodine 4 mg capsule,extended release 24hr 1 cap PO DAILY acetaminophen 650 mg tablet extended release 1 tab PO Q8H PRN (Reason: pain) meloxicam 7.5 mg tablet 1 tab PO BID levothyroxine 50 mcg tablet 1 tab PO DAILY paroxetine HCl 20 mg tablet 1 tab PO DAILY albuterol sulfate 90 mcg/actuation HFA aerosol inhaler 2 puff INHALATION Q4H lamotrigine 100 mg tablet 1 tab PO TID calcium carbonate-vitamin D3 600 mg-10 mcg (400 unit) tablet 1 tab PO BID cefuroxime axetil 250 mg tablet 250 mg PO BID 7 Days Qty: 14 0RF
[2023-07-29 22:56] LABS: Hematocrit 30.2 % (37.0-47.0); Hemoglobin 10.6 g/dl (12.0-16.0); Mean Corpuscular HGB Conc 35.1 g/dl (31.0-35.0); Mean Corpuscular Volume 88.3 fL (80.0-98.0); Platelet Count 307 X10*3/uL (160-400); Red Blood Count 3.42 X10*6/uL (4.20-5.50); Red Cell Distribution Width 13.2 % (11.0-16.0)
[2023-07-29 23:19] LABS: Band Neutrophils Percent 5 % (3-5); Basophils Abs Manual 0.1 X10*3/uL (0.0-0.2); Basophils Percent Manual 1 % (0-2); Eosinophils Absolute Manual 0.1 X10*3/uL (0.0-0.4); Eosinophils Percent Manual 1 % (0-4); Lymphocytes Absolute Manual 1.6 X10*3/uL (1.2-4.9); Lymphocytes Percent Manual 18 % (20-40); Metamyelocytes Absolute 0.1 X10*3/uL; Metamyelocytes Percent 1 %; Monocytes Absolute Manual 0.5 X10*3/uL (0.1-1.2); Monocytes Percent Manual 5 % (2-11); Neutrophils Absolute Manual 6.7 X10*3/uL (2.0-8.3); Neutrophils Percent Manual 69 % (45-73)
[2023-07-29 23:20] LABS: Platelet Estimate NORMAL (NORMAL); Platelet Morphology Comment NORMAL; RBC Morphology NORMAL
[2023-07-29] MEDS: predniSONE 20 MG TABLET 40 MG PO (23:42)
[2023-07-29 23:59] VITALS: BP 131/75; PULSE 82; RESP 16; O2SAT 99
== END 2023-07-30 00:04 | disposition home or self-care (01) ==
PROVIDERS: Emergency Provider Emergency Medicine; PCP Pediatrics
DX: L50.9 Urticaria, unspecified (principal); J45.909 Unspecified asthma, uncomplicated; E03.9 Hypothyroidism, unspecified
CPT/HCPCS: 36415; 85007; 85025; 85027; 99283

== ENCOUNTER 2023-08-09 11:49 | Outpatient (REF) | payer MEDICARE, MEDICAID, SELFPAY ==
[2023-08-09 15:01] LABS: MANUAL DIFF FLAG NO
[2023-08-09 15:03] LABS: Basophils Absolute Auto 0.1 X10*3/uL (0.0-0.2); Basophils Percent Auto 1.2 % (0-2); Eosinophils Absolute Auto 0.1 X10*3/uL (0.0-0.4); Eosinophils Percent Auto 0.7 % (0-4); Hematocrit 30.2 % (37.0-47.0); Hemoglobin 10.1 g/dl (12.0-16.0); Imm Gran Abs Auto 0.06 X10*3/uL (0.00-0.03); Imm Gran Pct Auto 0.7 % (0.0-0.4); Lymphocytes Absolute Auto 2.8 X10*3/uL (1.2-4.9); Lymphocytes Percent Auto 34.6 % (20-40); Mean Corpuscular HGB Conc 33.4 g/dl (31.0-35.0); Mean Corpuscular Hemoglobin 30.6 pg (27.0-33.0); Mean Corpuscular Volume 91.5 fL (80.0-98.0); Monocytes Absolute Auto 0.8 X10*3/uL (0.1-1.2); Monocytes Percent Auto 9.4 % (2-11); Neutrophils Absolute Auto 4.4 x10*3/uL (2.0-8.3); Neutrophils Percent Auto 53.4 % (45-73); Platelet Count 441 X10*3/uL (160-400); Red Cell Distribution Width 13.3 % (11.0-16.0); White Blood Count 8.2 X10*3/uL (4.8-10.8)
[2023-08-09 15:27] LABS: Alanine Aminotransferase 17 U/L (0-31); Albumin Level 4.2 g/dL (3.5-5.0); Alkaline Phosphatase 65 U/L (39-117); Anion Gap 16 (12-20); Aspartate Amino Transferase 18 U/L (5-31); Bilirubin Direct 0.1 mg/dL (0.0-0.5); Bilirubin Total 0.3 mg/dL (0.0-1.0); Blood Urea Nitrogen 28 mg/dL (9-16); Calcium 11.2 mg/dL (8.4-10.2); Carbon Dioxide 25 mmol/L (22-29); Chloride 103 mmol/L (96-108); Cholesterol 196 mg/dL (<200); Estimated Glomerular Filt Rate 36; Glucose Fasting 93 mg/dL (60-99); HDL Cholesterol 53 mg/dL (>40); Iron 68 mcg/dL (30-160); LDL Cholesterol Calculated 115 mg/dL (<100); Percent Iron Saturation 29 % (15-50); Potassium 3.9 mmol/L (3.3-5.1); Sodium 140 mmol/L (135-145); Total Iron Binding Capacity 232 mcg/dL (228-428); Total Protein 7.5 g/dL (6.5-8.0); Triglycerides 143 mg/dL (<150); Unsaturated Iron Binding 164 ug/dL
[2023-08-09 15:47] LABS: Vitamin B12 1217 pg/mL (200-900)
[2023-08-09 15:48] LABS: TSH reflex Free T4 1.58 uIU/mL (0.32-4.0); Vitamin D 25-OH Total 82.1 ng/mL (>30)
== END 2023-08-09 11:50 | disposition home or self-care (01) ==
LOC: HO.CHCLDS 11:49
PROVIDERS: Visit Provider Pediatrics
DX: F31.62 Bipolar disorder, current episode mixed, moderate (principal); E03.9 Hypothyroidism, unspecified; D50.9 Iron deficiency anemia, unspecified
CPT/HCPCS: 36415; 80048; 80061; 80076; 82306; 82607; 83540; 84443; 85025

== ENCOUNTER 2023-09-19 16:58 | Emergency (ER) | payer MEDICARE, MEDICAID, SELFPAY ==
[2023-09-19 17:37] VITALS: BP 119/67; PULSE 78; RESP 16; TEMP 36.6; O2SAT 98; BMI 20.5
--- NOTE | 2023-09-19 17:43 | ED.EAR ---
HPI - Ear Problem General Stated complaint: RIGHT EAR PLUG LODGED IN EAR Time Seen by Provider: 09/19/23 17:42 Source: patient Mode of arrival: ambulatory Limitations: no limitations History of Present Illness HPI Narrative: Patient is a 67-year-old female presenting to the emergency department with complaint of ear plugs lodged in right ear canal. states he attempted to remove with tweezers but was unsuccessful. Patient denies pain or fever. MD Complaint: foreign body Location: right ear Duration: constant Discharge from ear: no Treatment prior to arrival: none Related Data Home Medications Medication Instructions Recorded Confirmed acetaminophen 650 mg 1 tab PO Q8H PRN pain 07/03/22 07/03/22 tablet,extended release albuterol sulfate 90 mcg/actuation 2 puff inhalation Q4H 07/03/22 07/03/22 aerosol inhaler calcium carbonate 600 mg-vitamin 1 tab PO BID 07/03/22 07/03/22 D3 10 mcg (400 unit) tablet lamotrigine 100 mg tablet 1 tab PO TID 07/03/22 07/03/22 levothyroxine 50 mcg tablet 1 tab PO DAILY 07/03/22 07/03/22 meloxicam 7.5 mg tablet 1 tab PO BID 07/03/22 07/03/22 oxcarbazepine 150 mg tablet 5 tab PO BEDTIME 07/03/22 07/03/22 oxybutynin chloride 15 mg 1 tab PO DAILY 07/03/22 07/03/22 tablet,extended release 24 hr paroxetine HCl 20 mg tablet 1 tab PO DAILY 07/03/22 07/03/22 tolterodine 4 mg capsule,extended 1 cap PO DAILY 07/03/22 07/03/22 release 24 hr Previous Rx's Medication Instructions Recorded cefuroxime axetil 250 mg tablet 250 mg PO BID uti 7 days #14 tabs 07/03/22 prednisone 20 mg tablet 40 mg (2 x 20 mg) PO DAILY 4 days 07/29/23 #8 tabs Allergies Allergy/AdvReac Type Severity Reaction Status Date / Time penicillin V Allergy Unknown Verified 03/08/13 00:00 Review of Systems Review of Systems: As per HPI. Yes all other systems are reviewed and are negative Constitutional: Constitutional: Reports as per HPI [facility] Past Medical History Medical History Asthma Hypothyroid Bipolar disorder Osteoarthritis of right hip Social History Social History Patient Tobacco Use Status: Tobacco use Unknown Current occupational status: retired Physical Exam Vital Signs: Vital Signs: Vital signs have been reviewed and appear to be correct. Blood pressure normal. Heart rate normal. Respiratory rate normal. Temperature normal. Oxygen saturation normal. Const: General: cooperative, healthy appearing and no acute distress Orientation/consciousness: oriented to person, oriented to place, oriented to time and patient oriented x3 Limitations: no limitations HEENT: Head: Yes normocephalic and Yes atraumatic Ears: external ears normal, TM's normal bilaterally (after removal of FB) and Abnormal EAC present foreign body on the right (blue silicone earplug) General nose exam: Normal external nose present Face and sinus: Yes face symmetric Mouth: oropharynx normal and moist mucous membranes Throat: Yes uvula midline Eyes: Pupils: Equal, round and reactive pupils present Neck: Neck: Yes normal visual inspection and Yes supple Resp: Effort & Inspection: normal respiratory effort and able to speak in complete sentences Auscultation: clear to auscultation bilaterally Cardio: Rate: regular rate Rhythm: regular rhythm Heart sounds: S1 normal heart sound present and S2 normal heart sound present GI: Palpation (GI): Soft to palpation and nontender Auscultation: normoactive bowel sounds : General: Yes no CVA tenderness Back/Spine/Pelvis: Back: no CVA tenderness Skin: General skin exam: elasticity normal and turgor normal Neuro: General: oriented to person, oriented to place, oriented to time, patient oriented x3, moves all extremities, no focal motor deficits and CN's II-XI intact bilaterally Cranial nerves: Yes Equal, round and reactive pupils present Cognition (Neuro): normal cognition Extrem: General: Yes full ROM, Yes no pedal edema and Yes no calf tenderness Psych: Mental Status: mental status grossly normal Affect: normal affect Thought process: Normal thought process present Procedures Foreign Body Removal Time Out Performed: yes Site: right and ear Description of foreign body: other (ear plug) Sedation/Analgesia: none Technique: manual removal and removal with forceps Confirmed by:: direct visualization Complications: none Medical Decision Making Medical Decision Making MDM Narrative: Patient is a 67-year-old female presenting to the emergency department with complaint of ear plugs lodged in right ear canal. On exam patient is awake, A+Ox3, VS WNL, afebrile, normal neurological exam without focal deficits, physical exam findings as above. Given reported symptoms and physical exam findings, initial differential includes foreign body, otitis media, otitis externa. FB removed as per procedure note. Patient tolerated well. Advised patient to follow up with PCP. Return precautions discussed. Patient verbalized understanding of and agreement with plan. Differential Diagnosis Differential Diagnoses: The differential diagnosis associated with the presentation includes As per [facility] External Record Review External record reviewed: Inpatient record and Outpatient record Discharge Plan Discharge Clinical Impression: Acute foreign body of right ear Patient Disposition: Home, Self-Care Instructions: Ear Foreign Body (ED) Additional Instructions: You were evaluated in the emergency department for complaint of a foreign body to right ear which was successfully removed. Please follow up with your primary care provider. Return to the emergency department if you develop ear pain, swelling, drainage, fever or other concerning symptoms. Prescriptions: No Action oxcarbazepine 150 mg tablet 5 tab PO BEDTIME oxybutynin chloride 15 mg tablet extended release 24hr 1 tab PO DAILY tolterodine 4 mg capsule,extended release 24hr 1 cap PO DAILY acetaminophen 650 mg tablet extended release 1 tab PO Q8H PRN (Reason: pain) meloxicam 7.5 mg tablet 1 tab PO BID levothyroxine 50 mcg tablet 1 tab PO DAILY paroxetine HCl 20 mg tablet 1 tab PO DAILY albuterol sulfate 90 mcg/actuation HFA aerosol inhaler 2 puff INHALATION Q4H lamotrigine 100 mg tablet 1 tab PO TID calcium carbonate-vitamin D3 600 mg-10 mcg (400 unit) tablet 1 tab PO BID cefuroxime axetil 250 mg tablet 250 mg PO BID 7 Days Qty: 14 0RF prednisone 20 mg tablet 40 mg PO DAILY 4 Days Qty: 8 0RF
== END 2023-09-19 17:59 | disposition home or self-care (01) ==
PROVIDERS: Emergency Provider Student in an Organized Health Care Education/Training Program; PCP Pediatrics
DX: T16.1XXA Foreign body in right ear, initial encounter (principal); W44.9XXA Unspecified foreign body entering into or through a natural orifice, initial encounter; Y93.9 Activity, unspecified; Y92.9 Unspecified place or not applicable; Y99.9 Unspecified external cause status
CPT/HCPCS: 99282

== ENCOUNTER 2024-12-13 23:49 | Inpatient (IN) | payer MEDICARE, MEDICAID, SELFPAY ==
--- NOTE | ~2024-12-13 | XR_ITS ---
CLINICAL HISTORY: midline andR sided ttp with R sided radicular pain 3 views lumbar spine Comparison: CR/SR - XR LUMBAR SPINE 2-3V - 05/09/22 16:15 EDT Findings: Normal vertebral body alignment. No acute fractures or dislocation. Moderate Degenerative changes of the lumbar spine with osteophyte formation and narrowing of the L5-S1. Degenerative facet arthropathy of the lower lumbar spine. IMPRESSION: No acute findings. This document has been electronically signed by: Jyothi Alba MD on 12/15/2024 14:40:06
--- NOTE | ~2024-12-13 | XR_ITS ---
CLINICAL HISTORY: pain, decreased ROM 3 view, pelvis and right hip Comparison: 06/10/2022 10:45 AM EDT: DX Findings: No acute fracture or dislocation. Severe degenerative changes of the right hip joint with narrowing of the superior compartment of the joint space. There are degenerative osteophytes, subchondral cyst formation. There is deformity of the superior femoral head. Mild degenerative change of the left hip joint. The soft tissues are unremarkable. IMPRESSION: No acute findings. Severe degenerative change of the right hip joint. This document has been electronically signed by: Jyothi Alba MD on 12/15/2024 14:42:36
--- NOTE | ~2024-12-13 | CT_ITS ---
EXAMINATION: CT HEAD WITHOUT IV CONTRAST HISTORY: cognitive impairments. TECHNIQUE: Unenhanced helical CT of the head was performed per standard departmental protocol. Coronal and sagittal reformats of the head were also evaluated. One or more of the following techniques was used for dose reduction: Automated exposure control, adjustment of the mA and/or kV according to patient size, use of iterative reconstruction technique. DLP: 583 mGy-cm COMPARISON: Comparison is made with the prior examination dated 07/03/2022. FINDINGS: BRAIN: There is mild prominence of the ventricular system and cortical sulci, consistent with atrophy. Scattered periventricular and subcortical white matter hypodensities are noted which are nonspecific, but often seen in the setting of small vessel ischemic disease. There is no mass effect or midline shift. No intra- or extra-axial fluid collections are identified. SINUSES: The visualized paranasal sinuses are clear. The mastoid air cells and middle ear cavities are well pneumatized. ORBITS: The visualized orbits are unremarkable. BONES/SOFT TISSUES: The extracranial soft tissues are unremarkable. The calvarium is intact. No suspicious lytic or sclerotic lesions. CT/CT head/brain wo IV con IMPRESSION: No acute intracranial abnormality. Electronically signed by: El Ryan MD 12/16/2024 01:18 PM [facility]
[2024-12-14 00:02] VITALS: BP 142/79; PULSE 67; RESP 16; TEMP 36.7; O2SAT 96; BMI 20.6
--- OUTSIDE RECORDS SUMMARY | 2024-12-14 00:24 | XMS_ITS | Encounter Summary ---
Author Organization [employer] Address [address] [place] [address] [address] [place] [address] Care Team Providers Care Angular Developer Name Role Phone Laura Chapa MD Primary Care Provider [phone] Reason for Visit * Reason Comments Med Refill Encounter Details Date Type Department Care Team ([facility] st Contact Info) Description 11/27/2024 Refill [facility] CHC MED & PEDS [address] [place] [address] Laura Chapa MD [address] [place] [address] Social History Tobacco Use Types Packs/Day Years Used Date Smoking Tobacco: Never Passive Smoke Exposure: Never Smokeless Tobacco: Never Depression Answer Date Recorded Patient Health Questionnaire-9 Score 9 11/22/2023 Patient Health Questionnaire-9 Score 9 11/22/2023 Last PHQ-9: Questionnaire Data Not on file 0 11/22/2023 Depression Answer Date Recorded Patient Health Questionnaire-2 Score 2 11/22/2023 Comments Unknown Sex and Gender Information Value Date Recorded Sex Assigned at Female 08/15/2022 10:17 AM EDT Legal Sex Female 10:17 AM EDT Gender Identity Choose not to disclose 10:17 AM EDT Sexual Orientation Choose not to disclose 2021 10:17 AM EDT documented as of this encounter Plan of Treatment Not on file documented as of this encounter Visit Diagnoses Not on filedocumented in this encounter Additional Health Concerns Assessment Noted Time PHQ-9 Depression Total Score: 9 11/22/19 24 2:46 PM EST documented as of this encounter Care Teams Angular Developer Relationship Specialty Start Date End Date Laura Chapa MD [address] [place] [address] PCP - General Family Medicine 10/16/18 documented as of this encounter
--- OUTSIDE RECORDS SUMMARY | 2024-12-14 00:24 | XMS_ITS | Encounter Summary ---
Author Organization [employer] Address [address] [place] [address] [address] [place] [address] Care Team Providers Care Grey Stock Recorder Name Role Phone Laura Chapa MD Primary Care Provider [phone] Reason for Visit * Reason Comments Med Refill Encounter Details Date Type Department Care Team ([facility] st Contact Info) Description 12/13/2024 Refill [facility] CHC MED & PEDS [address] [place] [address] Laura Chapa MD [address] [place] [address] Social History Tobacco Use Types Packs/Day Years [...] documented as of this encounter Care Teams Grey Stock Recorder Relationship Specialty Start Date End Date Laura Chapa MD [address] [place] [address] PCP - General Family Medicine 10/16/18 documented as of this encounter
--- OUTSIDE RECORDS SUMMARY | 2024-12-14 00:24 | XMS_ITS | Encounter Summary ---
Author Organization [employer] Address [address] [facility] [address] [place] [address] Care Team Providers Care Hog Counter Name Role Phone Laura Chapa MD Primary Care Provider [phone] Reason for Visit * Reason Comments Med Refill Encounter Details Date Type Department Care Team ([facility] st Contact Info) Description 11/27/2024 Refill [facility] CHC MED & PEDS [address] [place], [place] [phone] Chris Daugherty MD [address] [place], [place] [phone] Acquired hypothyroidism Social History Tobacco Use Types Packs/Day Years [...] documented as of this encounter Visit Diagnoses Diagnosis Acquired hypothyroidism Unspecified hypothyroidism documented in this encounter Additional Health Concerns Assessment Noted Time PHQ-9 Depression Total Score: 9 11/22/19 24 2:46 PM EST documented as of this encounter Care Teams Hog Counter Relationship Specialty Start Date End Date Laura Chapa MD [address] [place] [id number] PCP - General Family Medicine 10/16/18 documented as of this encounter
--- OUTSIDE RECORDS SUMMARY | 2024-12-14 00:25 | XMS_ITS | Clinical Summary ---
Author Organization [facility] Address [address] [facility] [address] [place] [address] Phone Care Team Providers Care Motion Study Technician Name Role Phone Laura Chapa MD Primary Care Provider [phone] Allergies Active Allergy Reactions Criticality Noted Date Comments Penicillins Rash Low 11/11/2010 Other reaction(s): rash Medications oxybutynin XL (DITROPAN-XL) 15 MG 24 hr tablet Take 15 mg by mouth 1 (one) time each day in the morning Active OXcarbazepine (TRILEPTAL) 150 MG tablet Take 750 mg by mouth every night Active PARoxetine (PAXIL) 10 MG tablet Take 10 mg by mouth 1 (one) time each day 10/26/2023 Active acetaminophen (TYLENOL 8 HOUR) 650 MG 8 hr tablet Take 650 mg by mouth every 8 (eight) hours if needed Active levothyroxine (SYNTHROID, LEVOTHROID) 50 MCG tablet Take 50 mcg by mouth 1 (one) time each day Active lamoTRIgine (LaMICtal) 100 MG tablet Take 100 mg by mouth in the morning and 100 mg at noon and 100 mg in the evening. Active ferrous sulfate 325 (65 Fe) MG tablet Take 2 tablets by mouth 1 (one) time each day Active Calcium Carb-Cholecalci ferol 600-10 MG-MCG tablet Take 1 tablet by mouth 1 (one) time each day 10/18/2022 Active Active Problems Problem Noted Date Diagnosed Date [place] adverse reaction 02/04/2024 Stage 3a chronic kidney disease 11/05/2023 Anxiety, not otherwise specified 11/05/2023 Bipolar disorder 03/22/2016 Hypothyroidism 03/22/2016 Osteopenia 06/03/2014 Social History Tobacco Use Types Packs/Day Years Used Date Smoking Tobacco: Never Assessed Comments Unknown Sex and Gender Information Value Date Recorded Sex Assigned at Not on file Legal Sex Female 10:27 AM EDT Gender Identity Not on file Sexual Orientation Not on file Last Filed Vital Signs Vital Sign Reading Time Taken Comments Blood Pressure 110/72 11/06/2023 10:08 AM EST Pulse 86 11/06/2023 10:08 AM EST Temperature - - Respiratory Rate - - Oxygen Saturation 98% 11/06/2023 10:08 AM EST Inhaled Oxygen Concentration - - Weight 48.5 kg (107 lb) 11/06/2023 10:08 AM EST Height 157.5 cm (5' 2 ) 11/06/2023 10:08 AM EST Body Mass Index 19.57 11/06/2023 10:08 AM EST Plan of Treatment Health Maintenance Due Date Last Done Comments Breast Cancer Screening 1955 Colorectal Cancer Screening: Annual FOBT 2005 Colorectal Cancer Screening: Colonoscopy 2005 Colorectal Cancer Screening: Sigmoidoscopy 2005 Pneumococcal Vaccine: 65+ Years (3 of 3 - PCV) 02/28/2014 02/28/2013, 03/01/2012 Influenza Vaccine (#1) 2024 Hepatitis B Vaccine Aged Out No longe r eligible based on patient's age to complete this topic Insurance [place]ARE [place]ID [place] Care Teams Motion Study Technician Relationship Specialty Start Date End Date Laura Chapa MD [address] PCP - General Internal Medicine 11/06/23
--- OUTSIDE RECORDS SUMMARY | 2024-12-14 00:25 | XMS_ITS | Encounter Summary ---
Author Organization [employer] Address [address] [place] [address] [address] [place] [address] Care Team Providers Care Web Application Developer Name Role Phone Laura Chapa MD Primary Care Provider Encounter Details Date Type Department Care Team ([facility] st Contact Info) Description 08/10/2023 Orders Only [facility] CHC MED & PEDS [address] [place], [place] [phone] Laura Chapa MD [address] [place], [place] [phone] Renal insufficiency (Primary Dx) Social History Tobacco Use Types Packs/Day Years Used Date Smoking Tobacco: Never Assessed Depression Answer Date Recorded Patient Health Questionnaire-9 Score 7 08/09/2023 Patient Health Questionnaire-9 Score 7 08/09/2023 Last PHQ-9: Questionnaire Data Not on file 1 Depression Answer Date Recorded Patient Health Questionnaire-2 Score 2 08/09/2023 Comments Unknown Sex and Gender Information Value Date Recorded Sex Assigned at Female 08/15/2022 10:17 AM EDT Legal Sex Female 10:17 AM EDT Gender Identity Choose not to disclose 10:17 AM EDT Sexual Orientation Choose not to disclose 2021 10:17 AM EDT documented as of this encounter Plan of Treatment Not on file documented as of this encounter Visit Diagnoses Diagnosis Renal insufficiency- Primary Unspecified disorder of kidney and ureter documented in this encounter Additional Health Concerns Assessment Noted Time PHQ-9 Depression Total Score: 7 08/09/20 23 11:34 AM EDT documented as of this encounter Care Teams Web Application Developer Relationship Specialty Start Date End Date Laura Chapa MD [address] [place] [address] PCP - General Family Medicine 10/16/18 documented as of this encounter
--- OUTSIDE RECORDS SUMMARY | 2024-12-14 00:25 | XMS_ITS | Encounter Summary ---
Author Organization [employer] Address [address] [facility] [address] [place] [address] Care Team Providers Care Galley Hand Name Role Phone Laura Chapa MD Primary Care Provider [phone] Reason for Visit * Reason Comments Med Refill Encounter Details Date Type Department Care Team ([facility] st Contact Info) Description 09/29/2023 Refill [facility] CHC MED & PEDS [address] [place] [address] Laura Chapa MD [address] [place] [address] Pain Social History Tobacco Use Types Packs/Day Years [...] AM EDT documented as of this encounter Miscellaneous Notes * Telephone Encounter - Laura Chapa MD - 10/02/2023 11:08 AM EST Patient has new decreased kidney function for which I referred her to renal specialist,she shouldn't take any nsaids like ibuprofen and meloxicam, ok to take tylenol only documented in this encounter Plan of Treatment Not on file documented as of this encounter Visit Diagnoses Diagnosis Pain Generalized pain documented in this encounter Additional Health Concerns Assessment Noted Time PHQ-9 Depression Total Score: 7 08/09/20 23 11:34 AM EDT documented as of this encounter Care Teams Galley Hand Relationship Specialty Start Date End Date Laura Chapa MD [address] [place] [address] PCP - General Family Medicine 10/16/18 documented as of this encounter
--- OUTSIDE RECORDS SUMMARY | 2024-12-14 00:25 | XMS_ITS | Encounter Summary ---
Author Organization [employer] Address [address] [facility] [address] [place] [address] Care Team Providers Care Underground Bolting Machine Operator Name Role Phone Laura Chapa MD Primary Care Provider Reason for Visit * Reason Onset Date Comments Medication Question 09/13/2023 Encounter Details Date Type Department Care Team ([facility] st Contact Info) Description 09/13/2023 Telephone [facility] MEDICINE [address] [place] [address] Laura Chapa MD [address] [place], [place] [phone] Medication Question Social History Tobacco Use Types Packs/Day Years [...] encounter Miscellaneous Notes * Telephone Encounter - Abbey Monahan RN - 09/13/2023 5:40 PM EST Tc from patient calling to inform the medication PARoxetine (Paxil) 20 MG tablet was reduce to 10mgbut repairer typewriter does not see on med 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 TC placed to patient on both home and mobile number to further clarify questions about Paxil script. No answer on either number. LM to call us back. Routing back to [facility] nurses to try again. * Telephone Encounter - Yunior Rosales - 09/13/2023 8:25 AM EST Tc from patient calling to inform the medication PARoxetine (Paxil) 20 MG tablet was reduce to 10mgbut repairer typewriter does not see on med 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 documented in this encounter Plan of Treatment Not on file documented as of this encounter Visit Diagnoses Not on filedocumented in this encounter Additional Health Concerns Assessment Noted Time PHQ-9 Depression Total Score: 7 08/09/20 23 11:34 AM EDT documented as of this encounter Care Teams Underground Bolting Machine Operator Relationship Specialty Start Date End Date Laura Chapa MD [address] [place] [address] PCP - General Family Medicine 10/16/18 documented as of this encounter
--- OUTSIDE RECORDS SUMMARY | 2024-12-14 00:25 | XMS_ITS | Encounter Summary ---
Author Organization [employer] Address [address] [place] [address] [address] [place] [address] Care Team Providers Care Endoscopy Nurse Name Role Phone Laura Chapa MD Primary Care Provider [phone] Reason for Visit * Reason Comments Med Refill Encounter Details Date Type Department Care Team ([facility] st Contact Info) Description 12/08/2023 Refill [facility] CHC MED & PEDS [address] [place] [address] Laura Chapa MD [address] [place] [address] Social History Tobacco Use Types Packs/Day Years [...] documented as of this encounter Care Teams Endoscopy Nurse Relationship Specialty Start Date End Date Laura Chapa MD [address] [place] [address] PCP - General Family Medicine 10/16/18 documented as of this encounter
--- OUTSIDE RECORDS SUMMARY | 2024-12-14 00:25 | XMS_ITS | Clinical Summary ---
Author Organization [employer] Address [address] [facility] [address] [place] [address] Care Team Providers Care R Developer Name Role Phone Laura Chapa MD Primary Care Provider [phone] Allergies Active Allergy Reactions Criticality Noted Date Comments Penicillin V 11/11/2010 Other reaction(s): rash Medications * This document contains information received from the source organization and may not represent a complete record from that organization. meclizine (Antivert) 25 MG tablet take 1 tablet (25MG) by oral route 3 times every day as needed 05/04/20 21 Active tolterodine LA (Detrol LA) 4 MG 24 hr capsule Take 1 Capsule by Oral route once a day 05/31/20 22 Active omega-3 (Fish Oil) 1000 MG capsule Take 1 capsule by mouth 1 (one) time each day. 06/07/20 16 Active Calcium + Vitamin D3 600-10 MG-MCG tabletIndications :Continuous leakage of urine Take 1 tablet by mouth 2 times daily. 180 tablet 3 10/18/19 23 Active acetaminophen (Tylenol 8 Hour) 650 MG ER tablet TAKE 1 TABLET BY MOUTH EVERY 8 HOURS NEEDED FOR PAIN 60 tablet 5 09/11/20 23 Active ferrous sulfate 325 (65 Fe) MG tablet TAKE 2 TABLETS BY MOUTH EVERY DAY 60 tablet 3 12/07/19 24 Active meloxicam (Mobic) 7.5 MG tabletIndications :Pain TAKE 1 TABLET BY MOUTH EVERY DAY IN THE MORNING 30 tablet 1 12/11/19 24 Active oxybutynin XL (Ditropan-XL) 15 MG 24 hr tabletIndications :Continuous leakage of urine TAKE 1 TABLET BY MOUTH EVERY DAY IN THE MORNING 30 tablet 11 10/08/20 24 Active lamoTRIgine (LaMICtal) 100 MG tablet TAKE 3 TABLETS BY MOUTH EVERY DAY 90 tablet 3 10/21/19 25 Active albuterol 108 (90 Base) MCG/ACT inhaler INHALE 1 PUFF EVERY 6 (SIX) HOURS IF NEEDED FOR WHEEZING. INHALE 2 PUFFS ROUTE EVERY 4 HOURS 18 g 1 10/30/19 25 Active PARoxetine (Paxil) 20 MG tablet TAKE 1 TABLET BY MOUTH EVERY DAY IN THE MORNING 30 tablet 3 11/27/19 25 Active levothyroxine (Synthroid, Levoxyl) 50 MCG tabletIndications :Acquired hypothyroidism TAKE 1 TABLET BY MOUTH EVERY DAY 30 tablet 11/27/19 25 Active OXcarbazepine (Trileptal) 150 MG tablet TAKE 5 TABLETS BY MOUTH AT BEDTIME 150 tablet 3 12/13/19 25 Active PARoxetine (Paxil) 20 MG tablet TAKE 1 TABLET BY MOUTH EVERY DAY IN THE MORNING 30 tablet 3 08/05/20 24 025 Discontinued OXcarbazepine (Trileptal) 150 MG tablet TAKE 5 TABLETS BY MOUTH AT BEDTIME 150 tablet 3 08/19/20 24 025 Discontinued levothyroxine (Synthroid, Levoxyl) 50 MCG tabletIndications :Acquired hypothyroidism TAKE 1 TABLET BY MOUTH EVERY DAY 30 tablet 10/29/19 25 025 Discontinued(Re order (will not trigger notification to Pharmacy)) Active Problems Problem Noted Date Diagnosed Date Shortness of breath 10/01/2024 Assessment & Plan (10/01/2024 11:01 AM EST): Will send albuterol inhaler, she is speaking in full sentences, no fever/chills, er precautions reviewed Anxiety 11/21/2023 Vertigo 06/09/2016 08/09/2023 Bipolar disorder 03/22/2016 08/09/2023 Assessment & Plan (10/23/2023 9:53 AM EST): During IBH Consult Maria Ines presenting with Fear of abandonment, Pattern of unstable and intense interpersonal relationships, Impulsivity, Affective instability, Feelings of emptiness, Intense anger, and Disassociation; for a period of 18+ mo, for all symptoms in the context of illness or family illness and relationship issues. Maria Ines carries a diagnosis for bipolar disorder per medical records. She reported trauma history and medical problems. Physical illness and lack of support exacerbates symptoms. PLAN: (check all that apply) New/Additional Services needed On-site non-integrated services Off-site services for , Behavioral Health Integration Plan Internal Warm handoff internal psychiatric provider, External OP therapy referral , Patient Self Plan Patient to utilize skills provided in intervention , Patient to reach out to [facility] team as needed, Comply with medication , Patient to engage in OP therapy , and Patient to reach out to [facility] as needed. Hypothyroidism 03/22/2016 08/09/2023 Osteopenia 06/03/2014 08/09/2023 Encounters Date Type Department Care Team Description 12/13/2024 Refill [facility] MED & PEDS [address] [place] [address] Laura Chapa MD 11/27/2024 Refill [facility] [address] [place] [address] Chris Daugherty MD Acquired hypothyroidism 11/27/2024 Refill [facility] [address] [place] [address] Laura Chapa MD 10/29/2024 Telephone [facility] [address] [place] [address] Laura Chapa MD Medication Question 10/29/2024 Refill [facility] [address] [place] [address] Chris Daugherty MD 10/28/2024 Refill [facility] [address] [place] [address] Chris Daugherty MD 10/27/2024 Refill [facility] [address] [place] [address] Laura Chapa MD Acquired hypothyroidism 10/19/2024 Refill [facility] [address] [place] [address] Laura Chapa MD 10/08/2024 Refill [facility] [address] [place] [address] Laura Chapa MD Continuous leakage of urine 10/01/2024 10:30 AM EST Telemedicine [facility] [address] [place], [place] [phone] Chris Daugherty MD Shortness of breath (Primary Dx) 09/30/2024 Telephone [facility] [address], [place] [phone] Laura Chapa MD 09/30/2024 Travel 09/25/2024 Telephone [facility] [address] [place] [address] Laura Chapa MD Nurse Triage from Last 3 Months Immunizations Name Administration Dates Next Due Pneumococcal Polysaccharide PPSV23 02/28/2013 Tdap 04/25/2016 Social History Tobacco Use Types Packs/Day Years Used Date Smoking Tobacco: Never Passive Smoke Exposure: Never Smokeless Tobacco: Never Tobacco Cessation:Counseling Given: Not Answered Depression Answer Date Recorded Patient Health Questionnaire-9 [...] not to disclose 2021 10:17 AM EDT Last Filed Vital Signs Vital Sign Reading Time Taken Comments Blood Pressure 115/79 08/30/2023 11:22 AM EST Pulse 78 08/30/2023 11:22 AM EST Temperature 36.8 ??C (98.2 ??F) 08/30/2023 11:[address] Respiratory Rate 16 08/30/2023 11:22 AM EST Oxygen Saturation 98% 08/30/2023 11:22 AM EST Inhaled Oxygen Concentration - - Weight 49 kg (108 lb) 08/30/2023 11:22 AM EST Height 153 cm (5' 0.25 ) 08/30/2023 11:22 AM EST Body Mass Index 20.92 08/30/2023 11:22 AM EST Plan of Treatment Health Maintenance Due Date Last Done Comments CT Colonography 1956 Colonoscopy 1956 Colorectal Cancer Screening 1956 FIT DNA/Cologuard 1956 FIT 1956 FOBT 1956 SDOH Screening 1956 Sigmoidoscopy 1956 Alcohol/Substance Use Screening 1968 Hepatitis C Screening 1974 Mammogram 1996 Zoster Vaccines (1 of 2) 2006 Pneumococcal Vaccine: 50+ Years (2 of 2 - PCV) 02/28/2014 02/28/2013 Depression Monitoring (PHQ-9) 05/22/2024, 11/22/2023 COVID-19 Vaccine (1 - 2023-2 5 season) 2024 Influenza Vaccine (#1) 2024 Tobacco Screening 08/16/2024 08/16/2023 Depression Screening 11/22/2024 11/22/2023, 11/22/2023 DTaP/Tdap/Td Vaccines (2 - T d or Tdap) 04/25/2026 04/25/2016 RSV Patients and Patients Aged 60 years or older (1 - 1-dose 75+ series) 12/17/2031 HIB Vaccines Aged Out No longer eligi ble based on patient's age to complete this topic HPV Vaccines Aged Out No longer eligi ble based on patient's age to complete this topic Hepatitis A Vaccines Aged Out No long er eligible based on patient's age to complete this topic Hepatitis B Vaccines Aged Out No long er eligible based on patient's age to complete this topic IPV Vaccines Aged Out No longer eligi ble based on patient's age to complete this topic Meningococcal Vaccine Aged Out No gilma matt eligible based on patient's age to complete this topic RSV under 20 months Aged Out No longe r eligible based on patient's age to complete this topic Rotavirus Vaccines Aged Out No longer eligible based on patient's age to complete this topic Insurance [facility] * Guarantor: Marai Ines Chan Account Type Relation to Patient Date of Phone Billing Address Personal/Family Self [address] Care Teams R Developer Relationship Specialty Start Date End Date Laura Chapa MD [address] [place], [place] [address], [place] PCP - General Family Medicine 10/16/18
--- OUTSIDE RECORDS SUMMARY | 2024-12-14 00:25 | XMS_ITS | Encounter Summary ---
Author Organization [employer] Address [address] [facility] [address] [place] [address] Care Team Providers Care Palliative Care Specialist Name Role Phone Laura Chapa MD Primary Care Provider [phone] Reason for Visit * Reason Onset Date Comments Call Back Request 08/28/2023 Encounter Details Date Type Department Care Team ([facility] st Contact Info) Description 08/28/2023 Telephone [facility] MED[facility]INE [address] [place] [address] Laura Chapa MD [address] [place], [place] [phone] Call Back Request Social History Tobacco Use Types Packs/Day Years [...] encounter Miscellaneous Notes * Telephone Encounter - Reva Jimenez - 08/28/2023 12:52 PM EST Tc from pt requesting a call back in regards 08/30/2023 appt, pt is not sure if PCP wanted to see her. documented in this encounter Plan of Treatment Not on file documented as of this encounter Visit Diagnoses Not on filedocumented in this encounter Additional Health Concerns Assessment Noted Time PHQ-9 Depression Total Score: 7 08/09/20 23 11:34 AM EDT documented as of this encounter Care Teams Palliative Care Specialist Relationship Specialty Start Date End Date Laura Chapa MD [address] [place] [address] PCP - General Family Medicine 10/16/18 documented as of this encounter
--- OUTSIDE RECORDS SUMMARY | 2024-12-14 00:25 | XMS_ITS | Encounter Summary ---
Author Organization [employer] Address [address] [place] [address] 7t [place] [address] Care Team Providers Care Community Program Assistant Name Role Phone Laura Chapa MD Primary Care Provider [phone] Reason for Visit * Reason Comments Med Refill Encounter Details Date Type Department Care Team ([facility] st Contact Info) Description 02/14/2024 Refill [facility] PEDS [address] [place] [address] Laura Chapa MD [address] [place] [address] Social History Tobacco Use Types Packs/Day Years [...] documented as of this encounter Care Teams Community Program Assistant Relationship Specialty Start Date End Date Laura Chapa MD [address] [place] [address] PCP - General Family Medicine 10/16/18 documented as of this encounter
--- OUTSIDE RECORDS SUMMARY | 2024-12-14 00:25 | XMS_ITS | Encounter Summary ---
Author Organization [employer] Address [address] [facility] [address] [place] [address] Care Team Providers Care Pilot Plant Research Technician Name Role Phone Laura Chapa MD Primary Care Provider [phone] Encounter Details Date Type Department Care Team (Late st Contact Info) Description 06/20/2023 Orders Only [facility] MED & PEDS [address] [place] [address] Laura Chapa MD [address] [place] [address] Social History Tobacco Use Types Packs/Day Years [...] on file documented as of this encounter Procedures Procedure Name Priority Date/Time Associated Diagnosis Comments BASIC METABOLIC PANEL, FASTING Routine 08/09/2023 11:53 AM EDT COMPLETE BLOOD COUNT MAN DIF Routine 07/29/2023 10:46 PM EDT documented in this encounter Results * (ABNORMAL) Basic Metabolic Panel, Fasting (08/09/2023 11:53 AM EDT) Sodium 140 135 - 145 mmol/L [facility] Potassium 3.9 3.3 - 5.1 mmol/L [facility] Chloride 103 96 - 108 mmol/L [facility] Carbon Dioxide 25 22 - 29 mmol/L [facility] Anion Gap 16 12 - 20 [facility] Urea Nitrogen (BUN) 28(H) 9 - 16 mg/dL [facility] Creatinine, Serum 1.47(H) 0.5 - 1.4 mg/dL [facility] Estimated Glomerular Filt Rate 36 [facility] Comment:NOTE: For -Am erican individuals, multiply the result by 1.210.Chronic Kidney Disease: Estimated GFR < 60 mL/min/1.45t9Alnyxq Kidney Disease: Estimated GFR < 15 mL/min/1.73m2 Glucose Fasting 93 60 - 99 mg/dL [facility] Calcium 11.2(H) 8.4 - 10.2 mg/dL [facility] 08/09/2023 11:5 3 AM EDT 08/09/2023 2:55 PM EDT us Laura Chapa MD LAB BLOOD ORDERABLES Final Re sult [facility] [address] [place] [address] [phone] * (ABNORMAL) Complete Blood Count Manual Diff (07/29/2023 10:46 PM EDT) White Blood Count 9.0 4.8 - 10.8 X10*3/uL [facility] Red Blood Count 3.42(L) 4.20 - 5.50 X10*6/uL [facility] Hemoglobin 10.6(L) 12.0 - 16.0 g/dl [facility] Hematocrit 30.2(L) 37.0 - 47.0 % [facility] Mean Corpuscular Volume 88.3 80.0 - 98.0 fL [facility] Mean Corpuscular Hemoglobin 31.0 27.0 - 33.0 pg [facility] Mean Corpuscular HGB Conc 35.1(H) 31.0 - 35.0 g/dl [facility] Red Cell Distribution Width 13.2 11.0 - 16.0 % [facility] Platelet Count 307 160 - 400 X10*3/uL [facility] Mean Platelet Volume 10.0 9.4 - 12.3 fL [facility] NRBC Pct Auto 0.0 0.0 - 0.2 /100WBC [facility] NRBC Abs Auto 0.000 0.0 - 0.012 X10*3/uL [facility] Neutrophils % Manual 69 45 - 73 % [facility] Band Neutrophils Percent 5 3 - 5 % [facility] Lymphocytes Percent Manual 18(L) 20 - 40 % [facility] Monocytes Percent Manual 5 2 - 11 % [facility] EOSINOPHILS % MANUAL 1 0 - 4 % [facility] BASOPHILS % MANUAL 1 0 - 2 % [facility] Metamyelocytes % (Manual) 1 % [facility] NEUTROPHILS ABSOLUTE MANUAL 6.7 2.0 - 8.3 X10*3/uL [facility] LYMPHOCYTES ABSOLUTE MANUAL 1.6 1.2 - 4.9 X10*3/uL [facility] MONOCYTES ABSOLUTE MANUAL 0.5 0.1 - 1.2 X10*3/uL [facility] EOSINOPHILS ABSOLUTE MANUAL 0.1 0.0 - 0.4 X10*3/uL [facility] BASOPHILS ABSOLUTE MANUAL 0.1 0.0 - 0.2 X10*3/uL [facility] Absolute Metamyelocytes 0.1 X10*3/uL [facility] Platelet Estimate NORMAL [facility] Platelet Morphology Comment NORMAL [facility] RBC Morphology [facility] 07/29/2023 10:4 6 PM EDT 07/29/2023 10:54 PM EDT us [facility] External Provider LAB BLO OD ORDERABLES Final Result [facility] [address] [place] [address] [phone] documented in this encounter Visit Diagnoses Not on filedocumented in this encounter Care Teams Pilot Plant Research Technician Relationship Specialty Start Date End Date Laura Chapa MD [address] [place] [address] PCP - General Family Medicine 10/16/18 documented as of this encounter
--- NOTE | 2024-12-14 01:42 | MHC.EDTECH ---
Addendum entered by Britta Branch 12/14/24 02:05: Clarice HANSEN made aware and spoke to pt, pt continues to refuse. Original Note: Pt refusing blood work. RN aware. Pt also made aware that blood work is needed to be evaluated by care team, still declined.
--- NOTE | 2024-12-14 02:06 | PC.NURSE ---
pt refused visitors, marcel significant other in [place] requesting to come back. this RN spoke with significant other per patient's request.
--- NOTE | 2024-12-14 03:11 | ED.PSYCH ---
HPI - Psych General Chief Complaint: Psychiatric Symptoms Stated Complaint: CRISIS, PT WANTS TO Time Seen by Provider: 12/14/24 01:03 Source: patient Limitations: no limitations History of Present Illness ED Provider: Coreen De Paz PA-C HPI Narrative: 68-year-old female with a history ofanxiety, bipolar, arthritis, asthma, hypothyroidism presents with vague SI. Patient keeps stating ?I just Wanna , just let me ?. Patient states she came here because she does not want to ?be a burden to her family and friends?. Patient states she purposely took herself off all of her medication, unclear duration of time. Patient does not have a specific plan for self-harm. Related Data Home Medications ?Medication ?Instructions ?Recorded ?Confirmed acetaminophen 650 mg 1 tab PO Q8H PRN pain 07/03/22 07/03/22 tablet,extended release albuterol sulfate 90 mcg/actuation 2 puff inhalation Q4H 07/03/22 07/03/22 aerosol inhaler calcium 600 mg (as 1 tab PO BID 07/03/22 07/03/22 carbonate)-vitamin D3 10 mcg (400 unit) tablet lamotrigine 100 mg tablet 1 tab PO TID 07/03/22 07/03/22 levothyroxine 50 mcg tablet 1 tab PO DAILY 07/03/22 07/03/22 meloxicam 7.5 mg tablet 1 tab PO BID 07/03/22 07/03/22 oxcarbazepine 150 mg tablet 5 tab PO BEDTIME 07/03/22 07/03/22 oxybutynin chloride 15 mg 1 tab PO DAILY 07/03/22 07/03/22 tablet,extended release 24 hr paroxetine HCl 20 mg tablet 1 tab PO DAILY 07/03/22 07/03/22 tolterodine 4 mg capsule,extended 1 cap PO DAILY 07/03/22 07/03/22 release 24 hr Previous Rx's ?Medication ?Instructions ?Recorded cefuroxime axetil 250 mg tablet 250 mg PO BID uti 7 days #14 tabs 07/03/22 prednisone 20 mg tablet 40 mg (2 x 20 mg) PO DAILY 4 days 07/29/23 #8 tabs Allergies Allergy/AdvReac Type Severity Reaction Status Date / Time penicillin V Allergy Unknown Unknown Verified 12/14/24 00:04 Review of Systems Review of Systems: Yes all other systems are reviewed and are negative Constitutional: Constitutional: Denies fatigue and Denies fever(s) Cardiovascular: Cardiovascular: Denies chest pain Gastrointestinal: Gastrointestinal: Denies abdominal pain, Denies nausea and Denies vomiting Musculoskeletal: Musculoskeletal: Denies back pain Endocrine: Endocrine: Denies fatigue [facility] Past Medical History Attestation statement: The following information was validated with the patient. Medical History Asthma Hypothyroid Bipolar disorder Osteoarthritis of right hip Social History Social History Patient Tobacco Use Status: Tobacco use Unknown Advance Directives: No Advance Directives Information Provided: No Current occupational status: retired Physical Exam Vital Signs: Vital Signs: Last Vital Signs Temp 98.1 F 12/14/24 00:02 Pulse 67 12/14/24 00:02 Resp 16 12/14/24 00:02 BP 142/79 H 12/14/24 00:02 Pulse Ox 96 12/14/24 00:02 O2 Del Method Room Air 12/14/24 00:02 BMI result Body Mass Index 20.6 Const: Other: Alert, tearful at times Orientation/consciousness: patient oriented x3 Resp: Effort & Inspection: normal respiratory effort Cardio: Other: Normal peripheral perfusion Skin: Other: Warm dry no rash Neuro: General: patient oriented x3, gait normal, no focal motor deficits and CN's II-XI intact bilaterally Psych: Other: Uncooperative, refusing labs, Medical Decision Making Medical Decision Making MDM Narrative: 68-year-old female with a history of anxiety, bipolar, arthritis, asthma, hypothyroidism presents with vague SI. Patient keeps stating ?I just Wanna , just let me ?. Patient states she came here because she does not want to ?be a burden to her family and friends?. Patient states she purposely took herself off all of her medication, unclear duration of time. Patient does not have a specific plan for self-harm. Problem: Psychiatric illness History: Per patient I have considered the following differential diagnoses: SI, HI, decompensated psychiatric illness, drug/alcohol intoxication Plan: Patient certainly appears decompensated, she admits that she took herself off her medication. She has been unreasonable at this time, she was refusing labs. I still placed a consult for the care team, unclear if they will assess her. We will readdress in the morning, her assessment when it happened overnight at this point. Discharge Plan Discharge Clinical Impression: Suicidal ideation Patient Disposition: Still a Patient Prescriptions: No Action oxcarbazepine 150 mg tablet 5 tab PO BEDTIME oxybutynin chloride 15 mg tablet extended release 24hr 1 tab PO DAILY tolterodine 4 mg capsule,extended release 24hr 1 cap PO DAILY acetaminophen 650 mg tablet extended release 1 tab PO Q8H PRN (Reason: pain) meloxicam 7.5 mg tablet 1 tab PO BID levothyroxine 50 mcg tablet 1 tab PO DAILY paroxetine HCl 20 mg tablet 1 tab PO DAILY albuterol sulfate 90 mcg/actuation HFA aerosol inhaler 2 puff INHALATION Q4H lamotrigine 100 mg tablet 1 tab PO TID calcium carbonate-vitamin D3 600 mg-10 mcg (400 unit) tablet 1 tab PO BID cefuroxime axetil 250 mg tablet 250 mg PO BID 7 Days Qty: 14 0RF prednisone 20 mg tablet 40 mg PO DAILY 4 Days Qty: 8 0RF Interventions: Calvert-Suicide Risk Severity Scale Last Done: 12/14/24 00:05 Print Language: Kiswahili
[2024-12-14 05:35] VITALS: BP 128/64; PULSE 60; RESP 16; TEMP 37.3; O2SAT 97
[2024-12-14 06:58] LABS: MANUAL DIFF FLAG NO
[2024-12-14 07:06] LABS: Basophils Percent Auto 0.4 % (0-2); Eosinophils Percent Auto 0.3 % (0-4); Hemoglobin 12.8 g/dl (12.0-16.0); Imm Gran Abs Auto 0.03 X10*3/uL (0.00-0.03); Imm Gran Pct Auto 0.4 % (0.0-0.4); Lymphocytes Absolute Auto 1.5 X10*3/uL (1.2-4.9); Lymphocytes Percent Auto 21.1 % (20-40); Mean Corpuscular HGB Conc 34.6 g/dl (31.0-35.0); Mean Corpuscular Hemoglobin 30.9 pg (27.0-33.0); Mean Corpuscular Volume 89.4 fL (80.0-98.0); Mean Platelet Volume 10.1 fL (9.4-12.3); Monocytes Absolute Auto 0.6 X10*3/uL (0.1-1.2); Monocytes Percent Auto 8.4 % (2-11); Neutrophils Percent Auto 69.4 % (45-73); Platelet Count 256 X10*3/uL (160-400); Red Blood Count 4.14 X10*6/uL (4.20-5.50); Red Cell Distribution Width 12.2 % (11.0-16.0); White Blood Count 7.3 X10*3/uL (4.8-10.8)
[2024-12-14 07:19] LABS: Acetaminophen LAB < 3 mcg/mL (<30); Salicylate < 5.0 mg/dL (15-30)
[2024-12-14 07:20] LABS: Alanine Aminotransferase 18 U/L (0-31); Albumin Level 4.6 g/dL (3.5-5.0); Alkaline Phosphatase 89 U/L (39-117); Anion Gap 17 (12-20); Aspartate Amino Transferase 25 U/L (5-31); Bilirubin Total 0.8 mg/dL (0.0-1.0); Blood Urea Nitrogen 21 mg/dL (9-16); Calcium 10.1 mg/dL (8.4-10.2); Carbon Dioxide 24 mmol/L (22-29); Chloride 105 mmol/L (96-108); Creatinine Clr Calc Pharmacy 47.9; Estimated Glomerular Filt Rate 57; Ethanol < 10 mg/dL; Glucose Random 97 mg/dL (60-115); Magnesium 1.9 mg/dL (1.6-2.6); Sodium 142 mmol/L (135-145); Total Protein 7.6 g/dL (6.5-8.0)
[2024-12-14 07:41] VITALS: BP 134/68; PULSE 69; RESP 16; TEMP 36.7; O2SAT 98
[2024-12-14 07:50] LABS: Appearance Urine Turbid; Color Urine Yellow; Glucose Urine UA Negative (Negative); Leukocyte Esterase Urine Large (3+) (Negative); Nitrite Urine Positive (Negative); UMIC TRIGGER UACC YES; Urine Blood Small (1+) (Negative); Urine Ketones 15 mg/dL (Negative); Urine Protein Trace mg/dL (Neg-Trace)
[2024-12-14 07:54] LABS: Glucose, Whole Blood 101 mg/dL (60-115)
[2024-12-14 08:01] LABS: Bacteria Urine 4+ (None Seen); RBC Urine 0-2 /HPF (0-2); UACC Culture Trigger YES; WBC Urine >50 /HPF (0-5)
[2024-12-14 08:03] LABS: Amphetamine Screen Urine Not Detected (Not Detect); Barbiturates, Urine Not Detected (Not Detect); Benzodiazepines Screen Urine Not Detected (Not Detect); Buprenorphine Scr Not Detected (Not Detect); Cannabinoid Screen Urine Not Detected (Not Detect); Cocaine Screen Urine Not Detected (Not Detect); Fentanyl, urine Not Detected (Not Detect); Methadone Screen, Urine Not Detected (Not Detect); Opiate Screen Urine Not Detected (Not Detect); Oxycodone Screen Urine Not Detected (Not Detect); Phencyclidine Screen Urine Not Detected (Not Detect)
[2024-12-14 08:36] LABS: Influenza A PCR NEGATIVE (Negative); Influenza B PCR NEGATIVE (Negative); Resp Syncy Virus RNA Qual PCR NEGATIVE (Negative); SARS COV2 PCR INHOUSE NEGATIVE (Negative)
[2024-12-14] MEDS: Acetaminophen 325 MG TABLET 650 MG PO ×2 (09:58→13:53)
--- NOTE | 2024-12-14 12:48 | MHC.CARE ---
Assessed patient, IPLOC is recommended. Patient, at this time, is agreeable.
[2024-12-14] MEDS: cefuroxime axetiL 250 MG TABLET PO ×2 (13:53→22:12)
--- NOTE | 2024-12-14 17:37 | PC.NURSE ---
Patient sleeping at this time. +UTI, medicated with antibiotics earlier this shift. Patient able to make needs known. Sitter remains present. Respirations even/unlabored. Given warm blanket for comfort. Krys IPLOC.
[2024-12-14 22:00] VITALS: BP 136/69; PULSE 71; RESP 12; TEMP 36.5; O2SAT 98
--- NOTE | 2024-12-14 22:36 | ECG_ITS ---
Test Reason : admission to [facility] psych Blood Pressure : */* mmHG Vent. Rate : 70 BPM Atrial Rate : 70 BPM P-R Int : 124 ms QRS Dur : 84 ms QT Int : 396 ms P-R-T Axes : 84 37 49 degrees QTcB Int : 427 ms Normal sinus rhythm Nonspecific ST and T wave abnormality Abnormal ECG When compared with ECG of 03-Jul-2022 01:01, ST more depressed Inferior leads Nonspecific T wave abnormality now evident in Lateral leads Referred By: Lalit Leroy Electronically Signed By: NIKA CORTES MD
[2024-12-14 22:51] VITALS: BP 131/69; PULSE 79; RESP 16; TEMP 36.7; O2SAT 99
[2024-12-14 23:05] LABS: Alanine Aminotransferase 26 U/L (0-31); Albumin Level 4.7 g/dL (3.5-5.0); Alkaline Phosphatase 78 U/L (39-117); Anion Gap 17 (12-20); Aspartate Amino Transferase 31 U/L (5-31); Bilirubin Total 0.8 mg/dL (0.0-1.0); Blood Urea Nitrogen 22 mg/dL (9-16); Calcium 9.9 mg/dL (8.4-10.2); Carbon Dioxide 22 mmol/L (22-29); Chloride 103 mmol/L (96-108); Creatinine Clr Calc Pharmacy 39.7; Estimated Glomerular Filt Rate 46; Glucose Random 217 mg/dL (60-115); Potassium 4.2 mmol/L (3.3-5.1); Sodium 138 mmol/L (135-145); Total Protein 7.7 g/dL (6.5-8.0)
[2024-12-15] MEDS: Acetaminophen 325 MG TABLET 650 MG PO ×2 (00:38→10:29)
[2024-12-15] MEDS: hydrOXYzine HCL 25 MG TABLET PO ×2 (00:38→20:59)
[2024-12-15] MEDS: OXcarbazepine 150 MG TABLET PO ×3 (00:38→20:59)
[2024-12-15] MEDS: traZODone HCL 50 MG TABLET PO ×2 (00:39→20:59)
--- NOTE | 2024-12-15 05:32 | PC.ADMIT ---
This is a 68 year old single white female, BIBA due to making suicidal statements. no longer wanting to be a burden. Patient presents as somewhat disorganized, easily de-railed and scattered so it is difficult to ascertain who called EMS, however it seems like it likely was her significant other, with whom she resides. She arrived to the [facility] reporting I just wanna , just let me . She stated that she doesn't want to be a burden anymore. She is medication non compliant and presents as disorganized, tangential and highly anxious. Patient has a hx of suicide attempts, PTSD, and a hx of medication non compliance with decompensation. Precipitant appears to be medication non adherence as well as potential financial strain regarding rent payment. Pt arrived to around 22:27, on a CV. Pt. is alert and oriented to self and place, pleasant and cooperative, easily engages, very emotional and tearing up a few times during admission process. pt denied SI/HI/AVH but noted she struggles to answer all questions, and requires much redirection regarding assessment questions. She shares she has attempted suicide in the past. pt stated I am having high anxiety due to the fact that my landlord is increasing my rent and per pt, she has lived there a long time. She thinks they are doing this to get her to leave. She does not want to leave and has planned to stay there forever. She states because of this she stopped taking all of her medications to at home. She reports that the new landlords are upping the rent, and are yelling yelling . Skin check completed with no issues. pt does not recall if she had fallen at home because she is not able to weight bear on the right leg and requires x2 assist to the BR. PT states uses cane at home but will benefit from using a walker. PT consult and Hospitalist consult ordered by attending MD. Pt started on Abx, Ceftin at ED for UTI. Vitals upon arrival to unit was wnl. pt contracted to safety. pt reported constant hip pain and received tylenol 650 prn as well atarax for anxiety with good effect. Pt is placed on 5mins.
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
[2024-12-15 08:25] LABS: Cholesterol 255 mg/dL (<200); HDL Cholesterol 68 mg/dL (>40); LDL Cholesterol Calculated 166 mg/dL (<100); Triglycerides 107 mg/dL (<150)
[2024-12-15 08:39] LABS: Thyroid Stimulating Hormone 4.04 uIU/mL (0.32-4.0)
[2024-12-15 08:54] VITALS: BP 109/72; PULSE 76; RESP 17; TEMP 36.3; O2SAT 96
[2024-12-15 08:54] LABS: Folate 15.8 ng/mL (> or = 4.0); Vitamin B12 1187 pg/mL (200-900)
[2024-12-15] MEDS: Levothyroxine Sodium 50 MCG TABLET PO (08:56)
[2024-12-15] MEDS: cefuroxime axetiL 250 MG TABLET PO ×2 (08:56→20:58)
[2024-12-15] MEDS: PARoxetine HCL 10 MG TABLET PO (09:20)
[2024-12-15 12:52] LABS: Estimated Average Glucose 103 mg/dL; Hemoglobin A1C 112.6949 umol/L; Hemoglobin A1c % 5.2 % (<6.0); Total Hemoglobin (HGBA1C) 3337.1983 umol/L
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
[2024-12-15 14:25] LABS: Glucose, Whole Blood 119 mg/dL (60-115)
[2024-12-15] MEDS: HaloperidoL 1 MG TABLET 2 MG PO ×2 (15:49→20:59)
[2024-12-15] MEDS: Lidocaine 4 % Patch ADH..PATCH 2 PATCH TRANSDERMA (19:13)
[2024-12-15 20:00] VITALS: BP 118/71; PULSE 69; RESP 16; TEMP 36.6; O2SAT 96
[2024-12-15] MEDS: Ibuprofen 600 MG TABLET PO (20:58)
[2024-12-16 07:46] VITALS: BP 119/66; PULSE 69; RESP 18; TEMP 36.9; O2SAT 97
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
[2024-12-16] MEDS: OXcarbazepine 150 MG TABLET PO ×2 (11:25→20:44)
[2024-12-16] MEDS: HaloperidoL 1 MG TABLET 2 MG PO ×3 (11:25→20:45)
[2024-12-16] MEDS: Levothyroxine Sodium 50 MCG TABLET PO (11:25)
[2024-12-16] MEDS: cefuroxime axetiL 250 MG TABLET PO ×2 (11:25→20:44)
[2024-12-16] MEDS: PARoxetine HCL 10 MG TABLET PO (11:25)
[2024-12-16] MEDS: Lidocaine 4 % Patch ADH..PATCH 2 PATCH TRANSDERMA (11:25)
[2024-12-16] MEDS: Albuterol Sulfate 90 MCG 8 GM INHALER 2 PUFF INHALE (19:01)
[2024-12-16 20:00] VITALS: BP 123/67; PULSE 80; RESP 16; TEMP 36.2; O2SAT 99
[2024-12-16] MEDS: Ibuprofen 600 MG TABLET PO (20:45)
[2024-12-17 08:00] VITALS: BP 111/60; PULSE 96; RESP 16; O2SAT 97
[2024-12-17] MEDS: HaloperidoL 1 MG TABLET 2 MG PO ×3 (08:26→20:44)
[2024-12-17] MEDS: Lidocaine 4 % Patch ADH..PATCH 2 PATCH TRANSDERMA (08:26)
[2024-12-17] MEDS: OXcarbazepine 150 MG TABLET PO ×2 (08:27→20:44)
[2024-12-17] MEDS: cefuroxime axetiL 250 MG TABLET PO ×2 (08:27→20:44)
[2024-12-17] MEDS: Levothyroxine Sodium 50 MCG TABLET PO (08:27)
[2024-12-17] MEDS: PARoxetine HCL 10 MG TABLET PO (08:27)
[2024-12-17] MEDS: traMADoL HCL 50 MG TABLET PO ×2 (10:35→16:38)
[2024-12-17] MEDS: Ibuprofen 600 MG TABLET PO (15:08)
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
[2024-12-17 20:00] VITALS: BP 107/58; PULSE 76; RESP 16; TEMP 36.6; O2SAT 96
[2024-12-18 08:00] VITALS: BP 110/64; PULSE 94; RESP 18; TEMP 36.6; O2SAT 100
[2024-12-18] MEDS: HaloperidoL 1 MG TABLET 2 MG PO (08:44)
[2024-12-18] MEDS: PARoxetine HCL 10 MG TABLET PO (08:44)
[2024-12-18] MEDS: OXcarbazepine 150 MG TABLET PO ×2 (08:44→20:19)
[2024-12-18] MEDS: cefuroxime axetiL 250 MG TABLET PO ×2 (08:44→20:19)
[2024-12-18] MEDS: Lidocaine 4 % Patch ADH..PATCH 2 PATCH TRANSDERMA (08:45)
[2024-12-18] MEDS: Levothyroxine Sodium 50 MCG TABLET PO (08:45)
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
[2024-12-18] MEDS: Acetaminophen 325 MG TABLET 650 MG PO ×2 (14:43→20:18)
[2024-12-18 20:00] VITALS: BP 133/63; PULSE 81; RESP 15; TEMP 36.6; O2SAT 98
[2024-12-18] MEDS: Mirtazapine 15 MG TABLET PO (20:19)
[2024-12-19 08:25] VITALS: BP 121/75; PULSE 94; RESP 18; TEMP 36.8; O2SAT 95
[2024-12-19] MEDS: Acetaminophen 325 MG TABLET 650 MG PO ×3 (08:43→20:26)
[2024-12-19] MEDS: cefuroxime axetiL 250 MG TABLET PO ×2 (08:44→20:26)
[2024-12-19] MEDS: Brexpiprazole 1 MG TABLET PO (08:45)
[2024-12-19] MEDS: Levothyroxine Sodium 50 MCG TABLET PO (08:45)
[2024-12-19] MEDS: OXcarbazepine 150 MG TABLET PO ×2 (08:45→20:26)
[2024-12-19] MEDS: Lidocaine 4 % Patch ADH..PATCH 2 PATCH TRANSDERMA (08:45)
--- NOTE | 2024-12-19 09:20 | HO.PSYCHPN ---
Subjective Subjective Date of Service: 12/19/24 Reason For Visit: CRISIS, PT WANTS TO Subjective Notes: Conditional Voluntary Interim History: Pt slept through the night. She reports feeling less depressed. She is tolerating medications well. She reports feeling less depressed and less overwhelmed although worried about rent increase. She denies SI/HI. She is social with select peers. No behavioral concerns. Review of Systems Review of Systems Yes all other systems are reviewed and are negative Constitutional: Denies fatigue and Denies fever(s) Cardiovascular: Denies chest pain Gastrointestinal: Denies abdominal pain, Denies nausea and Denies vomiting Musculoskeletal: Reports no additional musculoskeletal complaints and Denies back pain Endocrine: Denies fatigue Mental Status Exam Mental Status Exam Narrative: Appearance: wearing hospital gown, thin, somewhat malnourished, in NAD Behavior: cooperative Psychomotor: no agitation or retardation noted, mild cogwheel on right arm. not observed ambulating Speech: clear, normal rate/rhythm/volume, spontaneous TP: some gaps in memory, making connection between statements at times seems disorganized, showing some degree of loose associations. TC: overwhelmed with rent going up, worried about facing eviction/homelessness Mood: overwhelmed Affect: congruent SI: passive SI conditional especially to rent situation HI: none VH/AH: no overt signs Delusions: feels as if others have said they will help but thinks this was not the case, unclear if in fact more paranoid or confabulating. Insight/judgment: impaired x 2. memory/cog: alert, oriented to month, knows if hospital but thinks is same as PCP office [facility], when asked about the year, states 25, maybe 2525, I don't know. Her orientation to events leading to this admission are also poor, not remembering who called EMS or what was going on to prompt ED visit. She completed MOCA scored 14/30, difficulties with executive function and visuospatial (2/5), attention, language repetition (0/2)/fluency (0/1), recall (0/5). Her orientation is intact, as well as naming. Showing vascular pattern of cognitive impairment. Diagnostics Vital Signs (24Hr): Vital Signs - 24 hr 12/18/24 20:00 12/19/24 08:25 Temperature 97.8 F 98.2 F Pulse Rate 81 94 Respiratory Rate 15 18 Blood Pressure 133/63 121/75 Pulse Oximetry 98 95 Oxygen Delivery Method Room Air Room Air BMI result Body Mass Index 20.6 Labs 12/14/24 06:54 12/14/24 22:46 Imaging Radiology Impressions: ITS Impressions Head CT 12/16/24 12:07 IMPRESSION: No acute intracranial abnormality. Electronically signed by: El Ryan MD 12/16/2024 01:18 PM [facility] Medications Medications Current Medications Acetaminophen (Acetaminophen 325 Mg Tablet) 650 mg PO TID [facility] Last Admin: 12/19/24 08:43 Dose: 650 mg Al Hydroxide/Mg Hydroxide (Magnesium Hydrox/Alum Hydrox 30 Ml Oral.Susp) 30 ml PO Q6H PRN PRN Reason: Heartburn/Nausea Albuterol Sulfate (Albuterol Sulfate 90 Mcg 8 Gm Inhaler) 2 puff INHALE Q4H PRN PRN Reason: asthma Last Admin: 12/16/24 19:01 Dose: 2 puff Brexpiprazole (Brexpiprazole 1 Mg Tablet) 1 mg PO DAILY [facility] Last Admin: 12/19/24 08:45 Dose: 1 mg Cefuroxime Axetil (Cefuroxime Axetil 250 Mg Tablet) 250 mg PO BID [facility] Stop: 12/21/24 12:29 Last Admin: 12/19/24 08:44 Dose: 250 mg Ibuprofen (Ibuprofen 600 Mg Tablet) 600 mg PO Q8H PRN PRN Reason: Pain, Mild (Pain Scale 1-3) Last Admin: 12/17/24 15:08 Dose: 600 mg Levothyroxine Sodium (Levothyroxine Sodium 50 Mcg Tablet) 50 mcg PO DAILY [facility] Last Admin: 12/19/24 08:45 Dose: 50 mcg Lidocaine (Lidocaine 4 % Patch Adh..Patch) 2 patch TRANSDERMA DAILY [facility]; Protocol Last Admin: 12/19/24 08:45 Dose: 2 patch Magnesium Hydroxide (Milk Of Magnesia 30 Ml Oral.Susp) 30 ml PO DAILY PRN PRN Reason: Constipation Mirtazapine (Mirtazapine 15 Mg Tablet) 15 mg PO BEDTIME [facility] Last Admin: 12/18/24 20:19 Dose: 15 mg Oxcarbazepine (Oxcarbazepine 150 Mg Tablet) 150 mg PO BID [facility] Last Admin: 12/19/24 08:45 Dose: 150 mg Tramadol HCl (Tramadol Hcl 50 Mg Tablet) 50 mg PO Q6H PRN PRN Reason: Pain, Severe (Pain Scale 7-10) Last Admin: 12/17/24 16:38 Dose: 50 mg Trazodone HCl (Trazodone Hcl 50 Mg Tablet) 50 mg PO BEDTIME PRN PRN Reason: Insomnia Allergies Allergies Allergy/AdvReac Type Severity Reaction Status Date / Time penicillin V Allergy Unknown Unknown Verified 12/14/24 00:04 Assessment & Plan Assessment & Plan (1) Bipolar disorder with depression: Status: Acute Code(s): F31.9 - Bipolar disorder, unspecified (2) Cognitive impairment: Status: Acute Code(s): R41.89 - Other symptoms and signs involving cognitive functions and awareness Assessment and Plan: She completed MOCA on 12/17/2024 scored 14/30, difficulties with executive function and visuospatial (2/5), attention, language repetition (0/2)/fluency (0/1), recall (0/5). Her orientation is intact, as well as naming. Shows vascular pattern of cognitive impairment. ACL scored 5. Plan Ms. Chan is a 69 year-old woman with hx of Bipolar Disorder who was brought via EMS due to reports of wanting to . Pt apparently struggling with financial stress due to landlord increasing rent yearly and patient afraid she will soon face homelessness. Pt used to be patient of Dr. Tereso Sanchez who retired last year. Since then, pt's PCP, Dr. Vo has been prescribing psychotropic medications. Pt reports suicidal ideation conditional to financial stress related to increase rent. She also presents as very forgetful, unable to prevent much information about medication trials, past admissions, she does report hx of intentional OD sometime ago but unable to tell how long ago. She was continued on paxil 10mg po daily and trileptal 150mg po BID, started on haldol 2mg po TID. We discussed risks, benefits and alternative treatment options (may change to different antipsychotic that may also provide benefit in bipolar depression). I also suspect underlying cognitive impairment. We discussed ordering head CT- and OT MOCA and ACL. Pertinent labs completed in the ED on 12/14- included CBC without leukocytosis, slightly elevated RBC. CMP without electrolyte abnormalities, BUN slightly elevated 22, Cr. 1.18 with creatinine clearance of 39.7 (may have underlying CKD), TSH 4.04 (on levothyroxine), UA showed + blood, +nitrites, +leukocyte, culture positive for e.coli (started on ceftin 250mg PO BID x 7 days- up on 12/21/2024). EKG normal sinus rhythm, non specific ST and T wave abnormalities, Qtc 427ms. PSYCHIATRIC PLAN: 1. Continue admission to S1, CV, 15 mins 2. MEDICATIONS: continue remeron 15mg po qhs. continue rexulti 1mg po daily continue scheduled tynelol for pain management as pt may not ask proactively. 3. Head CT shows atrophy and microvascular changes. 4. She completed MOCA scored 14/30, difficulties with executive function and visuospatial (2/5), attention, language repetition (0/2)/fluency (0/1), recall (0/5). Her orientation is intact, as well as naming. MEDICAL PLAN: #Chronic R hip pain -XR R hip shows severe degenerative changes likely causing patients pain and gait instability -possibly also a component of sciatica given radiculopathy given imaging findings. XR lumbar spine shows degerative changes with osteophyte formation and narrowing of the L5-S1. Consider CT lumbar spine if symptoms not improving, otherwise recommend outpt follow up -Lidocaine patch to hip and low back. Tylenol will scheduled/ibuprofen prn (check BMP q7d if using the ibuprofen- last creatinine clearance 37). Tramadol for more severe pain -PT eval. Recommend W/C or walker with assist for now #Positional lightheadedness -BP 107/67 sitting, BP 97/62 standing -Likely r/t poor PO intake. Encourage PO hydration. IV hydration not indicated at this time -If symptoms persist recheck orthostatic VS and contact hospitalist service #Hyperglycemia -patient does not recall if she ate prior to labs last night upon arrival - a1c on 12/14 5.2% Reason for continued inpatient stay Substantial Risk for: inability to function Time Spent With Patient Time: Total time managing care of this patient today ____ minutes.
[2024-12-19 18:08] VITALS: BMI 17.8
[2024-12-19 20:00] VITALS: BP 143/80; PULSE 80; RESP 16; TEMP 36.9; O2SAT 98
[2024-12-19] MEDS: Mirtazapine 15 MG TABLET PO (20:26)
[2024-12-20 08:25] VITALS: BP 123/66; PULSE 92; RESP 16; TEMP 36.6; O2SAT 97
[2024-12-20] MEDS: cefuroxime axetiL 250 MG TABLET PO ×2 (08:27→20:07)
[2024-12-20] MEDS: Brexpiprazole 1 MG TABLET PO (08:27)
[2024-12-20] MEDS: Acetaminophen 325 MG TABLET 650 MG PO ×3 (08:27→20:07)
[2024-12-20] MEDS: OXcarbazepine 150 MG TABLET PO ×2 (08:27→20:07)
[2024-12-20] MEDS: Levothyroxine Sodium 50 MCG TABLET PO (08:28)
[2024-12-20] MEDS: Lidocaine 4 % Patch ADH..PATCH 2 PATCH TRANSDERMA (08:31)
--- NOTE | 2024-12-20 14:43 | MHC.CLN ---
NUTRITION REVIEW OF WEIGHT HX SHOWS ERROR IN WEIGHT WITH 16# WEIGHT LOSS X LESS THATN ONE WEEK. [employer] DOES NOT SUPPORT SIGNIFICANT WEIGHT LOSS. PO INTAKE MOST MEALS 50-100%. RD TO MONITOR WEIGHT/INTAKE.
--- NOTE | 2024-12-20 19:03 | P.PNPSI_ITS ---
Subjective Subjective Date of Service: 12/20/24 Reason For Visit: CRISIS, PT WANTS TO Subjective Notes: Conditional Voluntary Interim History: Pt slept through the night. She reports feeling tired, which she reports not sure why as she states she had a good night sleep. She continues to denied SI/HI. No VH/AH. She reports feeling worried about housing situation but calmer. No behavioral concerns. taking medications as prescribed. Review of Systems Review of Systems Yes all other systems are reviewed and are negative Constitutional: Denies fatigue and Denies fever(s) Cardiovascular: Denies chest pain Gastrointestinal: Denies abdominal pain, Denies nausea and Denies vomiting Musculoskeletal: Reports no additional musculoskeletal complaints and Denies back pain Endocrine: Denies fatigue Mental Status Exam Mental Status Exam Narrative: Appearance: wearing hospital gown, thin, somewhat malnourished, in NAD Behavior: cooperative Psychomotor: no agitation or retardation noted, mild cogwheel on right arm. not observed ambulating Speech: clear, normal rate/rhythm/volume, spontaneous TP: some gaps in memory, making connection between statements at times seems disorganized, showing some degree of loose associations. TC: overwhelmed with rent going up, worried about facing eviction/homelessness Mood: overwhelmed Affect: congruent SI: passive SI conditional especially to rent situation HI: none VH/AH: no overt signs Delusions: feels as if others have said they will help but thinks this was not the case, unclear if in fact more paranoid or confabulating. Insight/judgment: impaired x 2. memory/cog: alert, oriented to month, knows if hospital but thinks is same as PCP office [facility], when asked about the year, states 25, maybe 2525, I don't know. Her orientation to events leading to this admission are also poor, not remembering who called EMS or what was going on to prompt ED visit. She completed MOCA scored 14/30, difficulties with executive function and visuospatial (2/5), attention, language repetition (0/2)/fluency (0/1), recall (0/5). Her orientation is intact, as well as naming. Showing vascular pattern of cognitive impairment. Diagnostics Vital Signs (24Hr): Vital Signs - 24 hr 12/19/24 20:00 12/20/24 08:25 Temperature 98.4 F 97.9 F Pulse Rate 80 92 Respiratory Rate 16 16 Blood Pressure 143/80 H 123/66 Pulse Oximetry 98 97 Oxygen Delivery Method Room Air Room Air BMI result Body Mass Index 17.8 Labs 12/14/24 06:54 12/14/24 22:46 Imaging Radiology Impressions: ITS Impressions Head CT 12/16/24 12:07 IMPRESSION: No acute intracranial abnormality. Electronically signed by: El Ryan MD 12/16/2024 01:18 PM [facility] Medications Medications Current Medications Acetaminophen (Acetaminophen 325 Mg Tablet) 650 mg PO TID [facility] Last Admin: 12/20/24 14:31 Dose: 650 mg Al Hydroxide/Mg Hydroxide (Magnesium Hydrox/Alum Hydrox 30 Ml Oral.Susp) 30 ml PO Q6H PRN PRN Reason: Heartburn/Nausea Albuterol Sulfate (Albuterol Sulfate 90 Mcg 8 Gm Inhaler) 2 puff INHALE Q4H PRN PRN Reason: asthma Last Admin: 12/16/24 19:01 Dose: 2 puff Brexpiprazole (Brexpiprazole 1 Mg Tablet) 1 mg PO DAILY [facility] Last Admin: 12/20/24 08:27 Dose: 1 mg Cefuroxime Axetil (Cefuroxime Axetil 250 Mg Tablet) 250 mg PO BID [facility] Stop: 12/21/24 12:29 Last Admin: 12/20/24 08:27 Dose: 250 mg Ibuprofen (Ibuprofen 600 Mg Tablet) 600 mg PO Q8H PRN PRN Reason: Pain, Mild (Pain Scale 1-3) Last Admin: 12/17/24 15:08 Dose: 600 mg Levothyroxine Sodium (Levothyroxine Sodium 50 Mcg Tablet) 50 mcg PO DAILY [facility] Last Admin: 12/20/24 08:28 Dose: 50 mcg Lidocaine (Lidocaine 4 % Patch Adh..Patch) 2 patch TRANSDERMA DAILY [facility]; Protocol Last Admin: 12/20/24 08:31 Dose: 2 patch Magnesium Hydroxide (Milk Of Magnesia 30 Ml Oral.Susp) 30 ml PO DAILY PRN PRN Reason: Constipation Mirtazapine (Mirtazapine 15 Mg Tablet) 15 mg PO BEDTIME [facility] Last Admin: 12/19/24 20:26 Dose: 15 mg Oxcarbazepine (Oxcarbazepine 150 Mg Tablet) 150 mg PO BID [facility] Last Admin: 12/20/24 08:27 Dose: 150 mg Tramadol HCl (Tramadol Hcl 50 Mg Tablet) 50 mg PO Q6H PRN PRN Reason: Pain, Severe (Pain Scale 7-10) Last Admin: 12/17/24 16:38 Dose: 50 mg Trazodone HCl (Trazodone Hcl 50 Mg Tablet) 50 mg PO BEDTIME PRN PRN Reason: Insomnia Allergies Allergies Allergy/AdvReac Type Severity Reaction Status Date / Time penicillin V Allergy Unknown Unknown Verified 12/14/24 00:04 Assessment & Plan Assessment & Plan (1) Bipolar disorder with depression: Status: Acute Code(s): F31.9 - Bipolar disorder, unspecified (2) Cognitive impairment: Status: Acute Code(s): R41.89 - Other symptoms and signs involving cognitive functions and awareness Assessment and Plan: She completed MOCA on 12/17/2024 scored 14/30, difficulties with executive function and visuospatial (2/5), attention, language repetition (0/2)/fluency (0/1), recall (0/5). Her orientation is intact, as well as naming. Shows vascular pattern of cognitive impairment. ACL scored 5. Plan Ms. Chan is a 69 year-old woman with hx of Bipolar Disorder who was brought via EMS due to reports of wanting to . Pt apparently struggling with financial stress due to landlord increasing rent yearly and patient afraid she will soon face homelessness. Pt used to be patient of Dr. Tereso Sanchez who retired last year. Since then, pt's PCP, Dr. Vo has been prescribing psychotropic medications. Pt reports suicidal ideation conditional to financial stress related to increase rent. She also presents as very forgetful, unable to prevent much information about medication trials, past admissions, she does report hx of intentional OD sometime ago but unable to tell how long ago. She was continued on paxil 10mg po daily and trileptal 150mg po BID, started on haldol 2mg po TID. We discussed risks, benefits and alternative treatment options (may change to different antipsychotic that may also provide benefit in bipolar depression). I also suspect underlying cognitive impairment. We discussed ordering head CT- and OT MOCA and ACL. Pertinent labs completed in the ED on 12/14- included CBC without leukocytosis, slightly elevated RBC. CMP without electrolyte abnormalities, BUN slightly elevated 22, Cr. 1.18 with creatinine clearance of 39.7 (may have underlying CKD), TSH 4.04 (on levothyroxine), UA showed + blood, +nitrites, +leukocyte, culture positive for e.coli (started on ceftin 250mg PO BID x 7 days- up on 12/21/2024). EKG normal sinus rhythm, non specific ST and T wave abnormalities, Qtc 427ms. PSYCHIATRIC PLAN: 1. Continue admission to S1, CV, 15 mins 2. MEDICATIONS: * continue remeron 15mg po qhs. * continue rexulti 1mg po daily * continue scheduled tynelol for pain management as pt may not ask proactively. 3. Head CT shows atrophy and microvascular changes. 4. She completed MOCA scored 14/30, difficulties with executive function and visuospatial (2/5), attention, language repetition (0/2)/fluency (0/1), recall (0/5). Her orientation is intact, as well as naming. MEDICAL PLAN: #Chronic R hip pain -XR R hip shows severe degenerative changes likely causing patients pain and gait instability -possibly also a component of sciatica given radiculopathy given imaging findings. XR lumbar spine shows degerative changes with osteophyte formation and narrowing of the L5-S1. Consider CT lumbar spine if symptoms not improving, otherwise recommend outpt follow up -Lidocaine patch to hip and low back. Tylenol will scheduled/ibuprofen prn (check BMP q7d if using the ibuprofen- last creatinine clearance 37). Tramadol for more severe pain -PT eval. Recommend W/C or walker with assist for now #Positional lightheadedness -BP 107/67 sitting, BP 97/62 standing -Likely r/t poor PO intake. Encourage PO hydration. IV hydration not indicated at this time -If symptoms persist recheck orthostatic VS and contact hospitalist service #Hyperglycemia -patient does not recall if she ate prior to labs last night upon arrival - a1c on 12/14 5.2% Reason for continued inpatient stay Substantial Risk for: inability to function Time Spent With Patient Time: Total time managing care of this patient today ____ minutes.
[2024-12-20 19:50] VITALS: BP 119/73; PULSE 96; RESP 18; TEMP 36.6; O2SAT 96
[2024-12-20] MEDS: traMADoL HCL 50 MG TABLET PO (20:06)
[2024-12-20] MEDS: Mirtazapine 15 MG TABLET PO (20:07)
[2024-12-21 07:49] VITALS: BP 103/65; PULSE 94; RESP 18; TEMP 36.3; O2SAT 97
[2024-12-21] MEDS: Lidocaine 4 % Patch ADH..PATCH 2 PATCH TRANSDERMA (08:21)
[2024-12-21] MEDS: Acetaminophen 325 MG TABLET 650 MG PO ×3 (08:22→20:36)
[2024-12-21] MEDS: Brexpiprazole 1 MG TABLET PO (08:22)
[2024-12-21] MEDS: Levothyroxine Sodium 50 MCG TABLET PO (08:22)
[2024-12-21] MEDS: cefuroxime axetiL 250 MG TABLET PO (08:22)
[2024-12-21] MEDS: OXcarbazepine 150 MG TABLET PO ×2 (08:22→20:37)
--- NOTE | 2024-12-21 18:18 | P.PNPSI_ITS ---
Subjective Subjective Date of Service: 12/21/24 Reason For Visit: CRISIS, PT WANTS TO Subjective Notes: Conditional Voluntary Interim History: Pt slept through the night. She reports doing well on the unit. She reports mood is better, although same concern with housing. She continues to denied SI/HI. No VH/AH. She reports feeling worried about housing situation but calmer. No behavioral concerns. taking medications as prescribed. Review of Systems Review of Systems Yes all other systems are reviewed and are negative Constitutional: Denies fatigue and Denies fever(s) Cardiovascular: Denies chest pain Gastrointestinal: Denies abdominal pain, Denies nausea and Denies vomiting Musculoskeletal: Reports no additional musculoskeletal complaints and Denies back pain Endocrine: Denies fatigue Mental Status Exam Mental Status Exam Narrative: Appearance: wearing hospital gown, thin, somewhat malnourished, in NAD Behavior: cooperative Psychomotor: no agitation or retardation noted, mild cogwheel on right arm. not observed ambulating Speech: clear, normal rate/rhythm/volume, spontaneous TP: some gaps in memory, making connection between statements at times seems disorganized, showing some degree of loose associations. TC: overwhelmed with rent going up, worried about facing eviction/homelessness Mood: overwhelmed Affect: congruent SI: passive SI conditional especially to rent situation HI: none VH/AH: no overt signs Delusions: feels as if others have said they will help but thinks this was not the case, unclear if in fact more paranoid or confabulating. Insight/judgment: impaired x 2. memory/cog: alert, oriented to month, knows if hospital but thinks is same as PCP office [facility], when asked about the year, states 25, maybe 2525, I don't know. Her orientation to events leading to this admission are also poor, not remembering who called EMS or what was going on to prompt ED visit. She completed MOCA scored 14/30, difficulties with executive function and visuospatial (2/5), attention, language repetition (0/2)/fluency (0/1), recall (0/5). Her orientation is intact, as well as naming. Showing vascular pattern of cognitive impairment. Diagnostics Vital Signs (24Hr): Vital Signs - 24 hr 12/20/24 19:50 12/21/24 07:49 Temperature 97.9 F 97.3 F Pulse Rate 96 94 Respiratory Rate 18 18 Blood Pressure 119/73 103/65 Pulse Oximetry 96 97 Oxygen Delivery Method Room Air Room Air BMI result Body Mass Index 17.8 Labs 12/14/24 06:54 12/14/24 22:46 Imaging Radiology Impressions: ITS Impressions Head CT 12/16/24 12:07 IMPRESSION: No acute intracranial abnormality. Electronically signed by: El Ryan MD 12/16/2024 01:18 PM [facility] Medications Medications Current Medications Acetaminophen (Acetaminophen 325 Mg Tablet) 650 mg PO TID [facility] Last Admin: 12/21/24 14:44 Dose: 650 mg Al Hydroxide/Mg Hydroxide (Magnesium Hydrox/Alum Hydrox 30 Ml Oral.Susp) 30 ml PO Q6H PRN PRN Reason: Heartburn/Nausea Albuterol Sulfate (Albuterol Sulfate 90 Mcg 8 Gm Inhaler) 2 puff INHALE Q4H PRN PRN Reason: asthma Last Admin: 12/16/24 19:01 Dose: 2 puff Brexpiprazole (Brexpiprazole 1 Mg Tablet) 1 mg PO DAILY [facility] Last Admin: 12/21/24 08:22 Dose: 1 mg Ibuprofen (Ibuprofen 600 Mg Tablet) 600 mg PO Q8H PRN PRN Reason: Pain, Mild (Pain Scale 1-3) Last Admin: 12/17/24 15:08 Dose: 600 mg Levothyroxine Sodium (Levothyroxine Sodium 50 Mcg Tablet) 50 mcg PO DAILY [facility] Last Admin: 12/21/24 08:22 Dose: 50 mcg Lidocaine (Lidocaine 4 % Patch Adh..Patch) 2 patch TRANSDERMA DAILY [facility]; Protocol Last Admin: 12/21/24 08:21 Dose: 2 patch Magnesium Hydroxide (Milk Of Magnesia 30 Ml Oral.Susp) 30 ml PO DAILY PRN PRN Reason: Constipation Mirtazapine (Mirtazapine 15 Mg Tablet) 15 mg PO BEDTIME [facility] Last Admin: 12/20/24 20:07 Dose: 15 mg Oxcarbazepine (Oxcarbazepine 150 Mg Tablet) 150 mg PO BID [facility] Last Admin: 12/21/24 08:22 Dose: 150 mg Tramadol HCl (Tramadol Hcl 50 Mg Tablet) 50 mg PO Q6H PRN PRN Reason: Pain, Severe (Pain Scale 7-10) Last Admin: 12/20/24 20:06 Dose: 50 mg Trazodone HCl (Trazodone Hcl 50 Mg Tablet) 50 mg PO BEDTIME PRN PRN Reason: Insomnia Allergies Allergies Allergy/AdvReac Type Severity Reaction Status Date / Time penicillin V Allergy Unknown Unknown Verified 12/14/24 00:04 Assessment & Plan Assessment & Plan (1) Bipolar disorder with depression: Status: Acute Code(s): F31.9 - Bipolar disorder, unspecified (2) Cognitive impairment: Status: Acute Code(s): R41.89 - Other symptoms and signs involving cognitive functions and awareness Assessment and Plan: She completed MOCA on 12/17/2024 scored 14/30, difficulties with executive function and visuospatial (2/5), attention, language repetition (0/2)/fluency (0/1), recall (0/5). Her orientation is intact, as well as naming. Shows vascular pattern of cognitive impairment. ACL scored 5. Plan Ms. Chan is a 69 year-old woman with hx of Bipolar Disorder who was brought via EMS due to reports of wanting to . Pt apparently struggling with financial stress due to landlord increasing rent yearly and patient afraid she will soon face homelessness. Pt used to be patient of Dr. Tereso Sanchez who retired last year. Since then, pt's PCP, Dr. Vo has been prescribing psychotropic medications. Pt reports suicidal ideation conditional to financial stress related to increase rent. She also presents as very forgetful, unable to prevent much information about medication trials, past admissions, she does report hx of intentional OD sometime ago but unable to tell how long ago. She was continued on paxil 10mg po daily and trileptal 150mg po BID, started on haldol 2mg po TID. We discussed risks, benefits and alternative treatment options (may change to different antipsychotic that may also provide benefit in bipolar depression). I also suspect underlying cognitive impairment. We discussed ordering head CT- and OT MOCA and ACL. Pertinent labs completed in the ED on 12/14- included CBC without leukocytosis, slightly elevated RBC. CMP without electrolyte abnormalities, BUN slightly elevated 22, Cr. 1.18 with creatinine clearance of 39.7 (may have underlying CKD), TSH 4.04 (on levothyroxine), UA showed + blood, +nitrites, +leukocyte, culture positive for e.coli (started on ceftin 250mg PO BID x 7 days- up on 12/21/2024). EKG normal sinus rhythm, non specific ST and T wave abnormalities, Qtc 427ms. PSYCHIATRIC PLAN: 1. Continue admission to S1, CV, 15 mins 2. MEDICATIONS: * continue remeron 15mg po qhs. * continue rexulti 1mg po daily * continue scheduled tynelol for pain management as pt may not ask proactively. 3. Head CT shows atrophy and microvascular changes. 4. She completed MOCA scored 14/30, difficulties with executive function and visuospatial (2/5), attention, language repetition (0/2)/fluency (0/1), recall (0/5). Her orientation is intact, as well as naming. MEDICAL PLAN: #Chronic R hip pain -XR R hip shows severe degenerative changes likely causing patients pain and gait instability -possibly also a component of sciatica given radiculopathy given imaging findings. XR lumbar spine shows degerative changes with osteophyte formation and narrowing of the L5-S1. Consider CT lumbar spine if symptoms not improving, otherwise recommend outpt follow up -Lidocaine patch to hip and low back. Tylenol will scheduled/ibuprofen prn (check BMP q7d if using the ibuprofen- last creatinine clearance 37). Tramadol for more severe pain -PT eval. Recommend W/C or walker with assist for now #Positional lightheadedness -BP 107/67 sitting, BP 97/62 standing -Likely r/t poor PO intake. Encourage PO hydration. IV hydration not indicated at this time -If symptoms persist recheck orthostatic VS and contact hospitalist service #Hyperglycemia -patient does not recall if she ate prior to labs last night upon arrival - a1c on 12/14 5.2% Reason for continued inpatient stay Substantial Risk for: inability to function Time Spent With Patient Time: Total time managing care of this patient today ____ minutes.
[2024-12-21 20:00] VITALS: BP 136/56; PULSE 85; TEMP 36.6; O2SAT 98
[2024-12-21] MEDS: Mirtazapine 15 MG TABLET PO (20:37)
[2024-12-22] MEDS: traMADoL HCL 50 MG TABLET PO ×2 (03:49→20:06)
[2024-12-22 09:15] VITALS: BP 104/56; PULSE 92; RESP 18; TEMP 36.9; O2SAT 98
[2024-12-22] MEDS: Brexpiprazole 1 MG TABLET PO (09:20)
[2024-12-22] MEDS: Levothyroxine Sodium 50 MCG TABLET PO (09:20)
[2024-12-22] MEDS: Acetaminophen 325 MG TABLET 650 MG PO ×3 (09:20→20:06)
[2024-12-22] MEDS: OXcarbazepine 150 MG TABLET PO ×2 (09:20→20:06)
[2024-12-22] MEDS: Lidocaine 4 % Patch ADH..PATCH 2 PATCH TRANSDERMA (09:23)
--- NOTE | 2024-12-22 12:16 | HO.PSYCHPN ---
Subjective Subjective Date of Service: 12/22/24 Reason For Visit: CRISIS, PT WANTS TO Subjective Notes: Conditional Voluntary Interim History: Pt slept through the night. She reports feeling very dizzy and unwell. BP showed postural hotn. afebrile, but reports subjective sense of fever. Will order labs- cmp, cbc, Review of Systems Review of Systems Yes all other systems are reviewed and are negative Constitutional: Denies fatigue and Denies fever(s) Cardiovascular: Denies chest pain Gastrointestinal: Denies abdominal pain, Denies nausea and Denies vomiting Musculoskeletal: Reports no additional musculoskeletal complaints and Denies back pain Endocrine: Denies fatigue Mental Status Exam Mental Status Exam Narrative: Appearance: wearing hospital gown, thin, somewhat malnourished, in NAD Behavior: cooperative Psychomotor: no agitation or retardation noted, mild cogwheel on right arm. not observed ambulating Speech: clear, normal rate/rhythm/volume, spontaneous TP: some gaps in memory, making connection between statements at times seems disorganized, showing some degree of loose associations. TC: overwhelmed with rent going up, worried about facing eviction/homelessness Mood: overwhelmed Affect: congruent SI: passive SI conditional especially to rent situation HI: none VH/AH: no overt signs Delusions: feels as if others have said they will help but thinks this was not the case, unclear if in fact more paranoid or confabulating. Insight/judgment: impaired x 2. memory/cog: alert, oriented to month, knows if hospital but thinks is same as PCP office [facility], when asked about the year, states 25, maybe 2525, I don't know. Her orientation to events leading to this admission are also poor, not remembering who called EMS or what was going on to prompt ED visit. She completed MOCA scored 14/30, difficulties with executive function and visuospatial (2/5), attention, language repetition (0/2)/fluency (0/1), recall (0/5). Her orientation is intact, as well as naming. Showing vascular pattern of cognitive impairment. Diagnostics Vital Signs (24Hr): Vital Signs - 24 hr 12/21/24 20:00 12/22/24 09:15 Temperature 97.9 F 98.4 F Pulse Rate 85 92 Respiratory Rate 18 Blood Pressure 136/56 L 104/56 L Pulse Oximetry 98 98 Oxygen Delivery Method Room Air Room Air BMI result Body Mass Index 17.8 Labs 12/14/24 06:54 12/14/24 22:46 Imaging Radiology Impressions: ITS Impressions Head CT 12/16/24 12:07 IMPRESSION: No acute intracranial abnormality. Electronically signed by: El Ryan MD 12/16/2024 01:18 PM [facility] Medications Medications Current Medications Acetaminophen (Acetaminophen 325 Mg Tablet) 650 mg PO TID [facility] Last Admin: 12/22/24 09:20 Dose: 650 mg Al Hydroxide/Mg Hydroxide (Magnesium Hydrox/Alum Hydrox 30 Ml Oral.Susp) 30 ml PO Q6H PRN PRN Reason: Heartburn/Nausea Albuterol Sulfate (Albuterol Sulfate 90 Mcg 8 Gm Inhaler) 2 puff INHALE Q4H PRN PRN Reason: asthma Last Admin: 12/16/24 19:01 Dose: 2 puff Brexpiprazole (Brexpiprazole 1 Mg Tablet) 1 mg PO DAILY [facility] Last Admin: 12/22/24 09:20 Dose: 1 mg Ibuprofen (Ibuprofen 600 Mg Tablet) 600 mg PO Q8H PRN PRN Reason: Pain, Mild (Pain Scale 1-3) Last Admin: 12/17/24 15:08 Dose: 600 mg Levothyroxine Sodium (Levothyroxine Sodium 50 Mcg Tablet) 50 mcg PO DAILY [facility] Last Admin: 12/22/24 09:20 Dose: 50 mcg Lidocaine (Lidocaine 4 % Patch Adh..Patch) 2 patch TRANSDERMA DAILY [facility]; Protocol Last Admin: 12/22/24 09:23 Dose: 2 patch Magnesium Hydroxide (Milk Of Magnesia 30 Ml Oral.Susp) 30 ml PO DAILY PRN PRN Reason: Constipation Mirtazapine (Mirtazapine 15 Mg Tablet) 15 mg PO BEDTIME [facility] Last Admin: 12/21/24 20:37 Dose: 15 mg Oxcarbazepine (Oxcarbazepine 150 Mg Tablet) 150 mg PO BID [facility] Last Admin: 12/22/24 09:20 Dose: 150 mg Tramadol HCl (Tramadol Hcl 50 Mg Tablet) 50 mg PO Q6H PRN PRN Reason: Pain, Severe (Pain Scale 7-10) Last Admin: 12/22/24 03:49 Dose: 50 mg Trazodone HCl (Trazodone Hcl 50 Mg Tablet) 50 mg PO BEDTIME PRN PRN Reason: Insomnia Allergies Allergies Allergy/AdvReac Type Severity Reaction Status Date / Time penicillin V Allergy Unknown Unknown Verified 12/14/24 00:04 Assessment & Plan Assessment & Plan (1) Bipolar disorder with depression: Status: Acute Code(s): F31.9 - Bipolar disorder, unspecified (2) Cognitive impairment: Status: Acute Code(s): R41.89 - Other symptoms and signs involving cognitive functions and awareness Assessment and Plan: She completed MOCA on 12/17/2024 scored 14/30, difficulties with executive function and visuospatial (2/5), attention, language repetition (0/2)/fluency (0/1), recall (0/5). Her orientation is intact, as well as naming. Shows vascular pattern of cognitive impairment. ACL scored 5. Plan Ms. Chan is a 69 year-old woman with hx of Bipolar Disorder who was brought via EMS due to reports of wanting to . Pt apparently struggling with financial stress due to landlord increasing rent yearly and patient afraid she will soon face homelessness. Pt used to be patient of Dr. Tereso Sanchez who retired last year. Since then, pt's PCP, Dr. Vo has been prescribing psychotropic medications. Pt reports suicidal ideation conditional to financial stress related to increase rent. She also presents as very forgetful, unable to prevent much information about medication trials, past admissions, she does report hx of intentional OD sometime ago but unable to tell how long ago. She was continued on paxil 10mg po daily and trileptal 150mg po BID, started on haldol 2mg po TID. We discussed risks, benefits and alternative treatment options (may change to different antipsychotic that may also provide benefit in bipolar depression). I also suspect underlying cognitive impairment. We discussed ordering head CT- and OT MOCA and ACL. Pertinent labs completed in the ED on 12/14- included CBC without leukocytosis, slightly elevated RBC. CMP without electrolyte abnormalities, BUN slightly elevated 22, Cr. 1.18 with creatinine clearance of 39.7 (may have underlying CKD), TSH 4.04 (on levothyroxine), UA showed + blood, +nitrites, +leukocyte, culture positive for e.coli (started on ceftin 250mg PO BID x 7 days- up on 12/21/2024). EKG normal sinus rhythm, non specific ST and T wave abnormalities, Qtc 427ms. PSYCHIATRIC PLAN: 1. Continue admission to S1, CV, 15 mins 2. MEDICATIONS: continue remeron 15mg po qhs. continue rexulti 1mg po daily continue scheduled tynelol for pain management as pt may not ask proactively. 3. Head CT shows atrophy and microvascular changes. 4. She completed MOCA scored 14/30, difficulties with executive function and visuospatial (2/5), attention, language repetition (0/2)/fluency (0/1), recall (0/5). Her orientation is intact, as well as naming. 12/22- reports dizziness, BP showed orthostatic hotn, reports feeling unwell, will order labs- cbc, cmp. MEDICAL PLAN: #Chronic R hip pain -XR R hip shows severe degenerative changes likely causing patients pain and gait instability -possibly also a component of sciatica given radiculopathy given imaging findings. XR lumbar spine shows degerative changes with osteophyte formation and narrowing of the L5-S1. Consider CT lumbar spine if symptoms not improving, otherwise recommend outpt follow up -Lidocaine patch to hip and low back. Tylenol will scheduled/ibuprofen prn (check BMP q7d if using the ibuprofen- last creatinine clearance 37). Tramadol for more severe pain -PT eval. Recommend W/C or walker with assist for now #Positional lightheadedness -BP 107/67 sitting, BP 97/62 standing -Likely r/t poor PO intake. Encourage PO hydration. IV hydration not indicated at this time -If symptoms persist recheck orthostatic VS and contact hospitalist service #Hyperglycemia -patient does not recall if she ate prior to labs last night upon arrival - a1c on 12/14 5.2% Reason for continued inpatient stay Substantial Risk for: inability to function Time Spent With Patient Time: Total time managing care of this patient today ____ minutes.
[2024-12-22 15:30] VITALS: BP 128/71; PULSE 93
[2024-12-22 15:30] LABS: Appearance Urine Clear; Color Urine Yellow; Glucose Urine UA Negative (Negative); Leukocyte Esterase Urine Moderate (2+) (Negative); Nitrite Urine Negative (Negative); PH 5.5 (5.0-9.0); UMIC TRIGGER UA YES; Urine Blood Negative (Negative); Urine Ketones Negative (Negative); Urine Protein Negative (Neg-Trace)
[2024-12-22 15:33] VITALS: BP 98/59; PULSE 102; TEMP 36.7
[2024-12-22 15:35] LABS: Bacteria Urine None Seen (None Seen); Hyaline Casts Urine 0-2 /LPF (0-2); RBC Urine 0-2 /HPF (0-2); Squamous Epithelial Cell Urine 0-2 /HPF (0-2); WBC Urine 21-50 /HPF (0-5)
[2024-12-22 16:00] LABS: MANUAL DIFF FLAG NO
[2024-12-22 16:04] LABS: Basophils Absolute Auto 0.1 X10*3/uL (0.0-0.2); Basophils Percent Auto 1.1 % (0-2); Eosinophils Absolute Auto 0.2 X10*3/uL (0.0-0.4); Eosinophils Percent Auto 2.7 % (0-4); Hematocrit 36.5 % (37.0-47.0); Hemoglobin 12.6 g/dl (12.0-16.0); Imm Gran Abs Auto 0.05 X10*3/uL (0.00-0.03); Imm Gran Pct Auto 0.7 % (0.0-0.4); Lymphocytes Absolute Auto 2.6 X10*3/uL (1.2-4.9); Lymphocytes Percent Auto 36.7 % (20-40); Mean Corpuscular HGB Conc 34.5 g/dl (31.0-35.0); Mean Corpuscular Hemoglobin 31.4 pg (27.0-33.0); Mean Platelet Volume 10.7 fL (9.4-12.3); Monocytes Absolute Auto 0.9 X10*3/uL (0.1-1.2); Monocytes Percent Auto 12.2 % (2-11); Neutrophils Absolute Auto 3.2 x10*3/uL (2.0-8.3); Neutrophils Percent Auto 46.6 % (45-73); Platelet Count 233 X10*3/uL (160-400); Red Blood Count 4.01 X10*6/uL (4.20-5.50); Red Cell Distribution Width 12.5 % (11.0-16.0)
[2024-12-22 16:17] LABS: Influenza A PCR NEGATIVE (Negative); Influenza B PCR NEGATIVE (Negative); Resp Syncy Virus RNA Qual PCR NEGATIVE (Negative); SARS COV2 PCR INHOUSE NEGATIVE (Negative)
[2024-12-22 16:17] LABS: Alanine Aminotransferase 21 U/L (0-31); Albumin Level 4.3 g/dL (3.5-5.0); Alkaline Phosphatase 71 U/L (39-117); Anion Gap 14 (12-20); Aspartate Amino Transferase 20 U/L (5-31); Bilirubin Total 0.3 mg/dL (0.0-1.0); Blood Urea Nitrogen 31 mg/dL (9-16); Calcium 9.5 mg/dL (8.4-10.2); Carbon Dioxide 28 mmol/L (22-29); Chloride 102 mmol/L (96-108); Estimated Glomerular Filt Rate 47; Glucose Random 92 mg/dL (60-115); Potassium 4.1 mmol/L (3.3-5.1); Sodium 140 mmol/L (135-145); Total Protein 7.2 g/dL (6.5-8.0)
[2024-12-22 16:47] LABS: Osmolality Urine 272 mosm/kg (373-1093)
[2024-12-22 20:00] VITALS: BP 130/69; PULSE 102; RESP 18; TEMP 37; O2SAT 95
[2024-12-22] MEDS: Mirtazapine 15 MG TABLET PO (20:06)
--- NOTE | 2024-12-23 | ECG_ITS ---
Test Reason : fatigue, dizzy Blood Pressure : */* mmHG Vent. Rate : 80 BPM Atrial Rate : 80 BPM P-R Int : 148 ms QRS Dur : 76 ms QT Int : 360 ms P-R-T Axes : 82 29 69 degrees QTcB Int : 415 ms Normal sinus rhythm Normal ECG When compared with ECG of 15-Dec-2024 23:11, ST no longer depressed in Inferior leads Nonspecific T wave abnormality no longer evident in Lateral leads Referred By: Taylor Burkett Electronically Signed By: BELGICA PLUMMER
[2024-12-23] MEDS: traMADoL HCL 50 MG TABLET PO (02:52)
[2024-12-23 08:47] VITALS: BP 103/59; PULSE 91; RESP 15; TEMP 37.1; O2SAT 96
[2024-12-23] MEDS: Acetaminophen 325 MG TABLET 650 MG PO ×3 (08:48→20:25)
[2024-12-23] MEDS: Levothyroxine Sodium 50 MCG TABLET PO (08:48)
[2024-12-23] MEDS: Lidocaine 4 % Patch ADH..PATCH 2 PATCH TRANSDERMA (08:49)
[2024-12-23] MEDS: OXcarbazepine 150 MG TABLET PO ×2 (08:49→20:25)
[2024-12-23] MEDS: Brexpiprazole 1 MG TABLET PO (08:49)
[2024-12-23 09:30] VITALS: BP 103/77
[2024-12-23 09:35] VITALS: BP 90/50
--- NOTE | 2024-12-23 10:11 | HO.PSYCHPN ---
Subjective Subjective Date of Service: 12/23/24 Reason For Visit: CRISIS, PT WANTS TO Subjective Notes: Conditional Voluntary Interim History: Pt slept through the night. She reports feeling less depressed. She denies SI/HI. We had meeting with significant other, Carl to go over treatment, dc plans. Pt's BP continue to be low, she has been drinking more. will lower rexulti 0.5mg po will change to bedtime. will also d/c ibuprofen. Medication Compliance: Yes Side effects from medications: No Attending Groups: Yes Review of Systems Review of Systems Yes all other systems are reviewed and are negative Constitutional: Denies fatigue and Denies fever(s) Cardiovascular: Denies chest pain Gastrointestinal: Denies abdominal pain, Denies nausea and Denies vomiting Musculoskeletal: Reports no additional musculoskeletal complaints and Denies back pain Endocrine: Denies fatigue Mental Status Exam Mental Status Exam Narrative: Appearance: wearing hospital gown, thin, somewhat malnourished, in NAD Behavior: cooperative Psychomotor: no agitation or retardation noted, mild cogwheel on right arm. not observed ambulating Speech: clear, normal rate/rhythm/volume, spontaneous TP: some gaps in memory, making connection between statements at times seems disorganized, showing some degree of loose associations. TC: overwhelmed with rent going up, worried about facing eviction/homelessness Mood: overwhelmed Affect: congruent SI: passive SI conditional especially to rent situation HI: none VH/AH: no overt signs Delusions: feels as if others have said they will help but thinks this was not the case, unclear if in fact more paranoid or confabulating. Insight/judgment: impaired x 2. memory/cog: alert, oriented to month, knows if hospital but thinks is same as PCP office [facility], when asked about the year, states 25, maybe 2525, I don't know. Her orientation to events leading to this admission are also poor, not remembering who called EMS or what was going on to prompt ED visit. She completed MOCA scored 14/30, difficulties with executive function and visuospatial (2/5), attention, language repetition (0/2)/fluency (0/1), recall (0/5). Her orientation is intact, as well as naming. Showing vascular pattern of cognitive impairment. Diagnostics Vital Signs (24Hr): Vital Signs - 24 hr 12/22/24 15:30 12/22/24 15:33 12/22/24 20:00 Temperature 98.1 F 98.6 F Pulse Rate 93 102 H 102 H Respiratory Rate 18 Blood Pressure 128/71 98/59 L 130/69 Pulse Oximetry 95 Oxygen Delivery Method Room Air 12/23/24 08:47 Temperature 98.7 F Pulse Rate 91 Respiratory Rate 15 Blood Pressure 103/59 L Pulse Oximetry 96 Oxygen Delivery Method Room Air BMI result Body Mass Index 17.8 Labs 12/22/24 15:53 12/23/24 14:49 Labs: Laboratory Results - last 48 hr 12/22/24 12/22/24 15:15 15:53 WBC 7.0 RBC 4.01 L Hgb 12.6 Hct 36.5 L MCV 91.0 MCH 31.4 MCHC 34.5 RDW 12.5 Plt Count 233 MPV 10.7 Immature Gran % (Auto) 0.7 H Neut % (Auto) 46.6 Lymph % (Auto) 36.7 [place] % (Auto) 12.2 H Eos % (Auto) 2.7 Baso % (Auto) 1.1 Lymph # (Auto) 2.6 [place] # (Auto) 0.9 Eos # (Auto) 0.2 Baso # (Auto) 0.1 Abs Immat Gran (auto) 0.05 H Absolute Neuts (auto) 3.2 Absolute Nucleated RBC 0.000 Nucleated RBC % (auto) 0.0 Sodium 140 Potassium 4.1 Chloride 102 Carbon Dioxide 28 Anion Gap 14 BUN 31 H Creatinine 1.14 Estim Creat Clear Calc 35.0 Estimated GFR 47 Random Glucose 92 Calcium 9.5 Total Bilirubin 0.3 AST 20 ALT 21 Alkaline Phosphatase 71 Total Protein 7.2 Albumin 4.3 Urine Color Yellow Urine Appearance Clear Urine pH 5.5 Ur Specific [place] 1.010 Urine Protein Negative Urine Glucose (UA) Negative Urine Ketones Negative Urine Blood Negative Urine Nitrite Negative Ur Leukocyte Esterase Moderate (2+) H Urine RBC 0-2 Urine WBC 21-50 H Ur Squamous Epith Cells 0-2 Urine Bacteria None Seen Hyaline Casts 0-2 Urine Osmolality 272 L Influenza Type A (PCR) NEGATIVE Influenza Type B (PCR) NEGATIVE RSV RNA Qual (PCR) NEGATIVE SARS-CoV-2 RNA (RT-PCR) NEGATIVE Imaging Radiology Impressions: ITS Impressions Head CT 12/16/24 12:07 IMPRESSION: No acute intracranial abnormality. Electronically signed by: El Ryan MD 12/16/2024 01:18 PM [facility] Medications Medications Current Medications Acetaminophen (Acetaminophen 325 Mg Tablet) 650 mg PO TID [facility] Last Admin: 12/23/24 08:48 Dose: 650 mg Al Hydroxide/Mg Hydroxide (Magnesium Hydrox/Alum Hydrox 30 Ml Oral.Susp) 30 ml PO Q6H PRN PRN Reason: Heartburn/Nausea Albuterol Sulfate (Albuterol Sulfate 90 Mcg 8 Gm Inhaler) 2 puff INHALE Q4H PRN PRN Reason: asthma Last Admin: 12/16/24 19:01 Dose: 2 puff Brexpiprazole (Brexpiprazole 1 Mg Tablet) 1 mg PO DAILY [facility] Last Admin: 12/23/24 08:49 Dose: 1 mg Ibuprofen (Ibuprofen 600 Mg Tablet) 600 mg PO Q8H PRN PRN Reason: Pain, Mild (Pain Scale 1-3) Last Admin: 12/17/24 15:08 Dose: 600 mg Levothyroxine Sodium (Levothyroxine Sodium 50 Mcg Tablet) 50 mcg PO DAILY [facility] Last Admin: 12/23/24 08:48 Dose: 50 mcg Lidocaine (Lidocaine 4 % Patch Adh..Patch) 2 patch TRANSDERMA DAILY [facility]; Protocol Last Admin: 12/23/24 08:49 Dose: 2 patch Magnesium Hydroxide (Milk Of Magnesia 30 Ml Oral.Susp) 30 ml PO DAILY PRN PRN Reason: Constipation Mirtazapine (Mirtazapine 15 Mg Tablet) 15 mg PO BEDTIME [facility] Last Admin: 12/22/24 20:06 Dose: 15 mg Oxcarbazepine (Oxcarbazepine 150 Mg Tablet) 150 mg PO BID [facility] Last Admin: 12/23/24 08:49 Dose: 150 mg Tramadol HCl (Tramadol Hcl 50 Mg Tablet) 50 mg PO Q6H PRN PRN Reason: Pain, Severe (Pain Scale 7-10) Last Admin: 12/23/24 02:52 Dose: 50 mg Trazodone HCl (Trazodone Hcl 50 Mg Tablet) 50 mg PO BEDTIME PRN PRN Reason: Insomnia Allergies Allergies Allergy/AdvReac Type Severity Reaction Status Date / Time penicillin V Allergy Unknown Unknown Verified 12/14/24 00:04 Assessment & Plan Assessment & Plan (1) Bipolar disorder with depression: Status: Acute Code(s): F31.9 - Bipolar disorder, unspecified (2) Cognitive impairment: Status: Acute Code(s): R41.89 - Other symptoms and signs involving cognitive functions and awareness Assessment and Plan: She completed MOCA on 12/17/2024 scored 14/30, difficulties with executive function and visuospatial (2/5), attention, language repetition (0/2)/fluency (0/1), recall (0/5). Her orientation is intact, as well as naming. Shows vascular pattern of cognitive impairment. ACL scored 5. Plan Ms. Chan is a 69 year-old woman with hx of Bipolar Disorder who was brought via EMS due to reports of wanting to . Pt apparently struggling with financial stress due to landlord increasing rent yearly and patient afraid she will soon face homelessness. Pt used to be patient of Dr. Tereso Sanchez who retired last year. Since then, pt's PCP, Dr. Vo has been prescribing psychotropic medications. Pt reports suicidal ideation conditional to financial stress related to increase rent. She also presents as very forgetful, unable to prevent much information about medication trials, past admissions, she does report hx of intentional OD sometime ago but unable to tell how long ago. She was continued on paxil 10mg po daily and trileptal 150mg po BID, started on haldol 2mg po TID. We discussed risks, benefits and alternative treatment options (may change to different antipsychotic that may also provide benefit in bipolar depression). I also suspect underlying cognitive impairment. We discussed ordering head CT- and OT MOCA and ACL. Pertinent labs completed in the ED on 12/14- included CBC without leukocytosis, slightly elevated RBC. CMP without electrolyte abnormalities, BUN slightly elevated 22, Cr. 1.18 with creatinine clearance of 39.7 (may have underlying CKD), TSH 4.04 (on levothyroxine), UA showed + blood, +nitrites, +leukocyte, culture positive for e.coli (started on ceftin 250mg PO BID x 7 days- up on 12/21/2024). EKG normal sinus rhythm, non specific ST and T wave abnormalities, Qtc 427ms. PSYCHIATRIC PLAN: 1. Continue admission to S1, CV, 15 mins 2. MEDICATIONS: continue remeron 15mg po qhs. continue rexulti 1mg po daily continue scheduled tynelol for pain management as pt may not ask proactively. 3. Head CT shows atrophy and microvascular changes. 4. She completed MOCA scored 14/30, difficulties with executive function and visuospatial (2/5), attention, language repetition (0/2)/fluency (0/1), recall (0/5). Her orientation is intact, as well as naming. 12/22- reports dizziness, BP showed orthostatic hotn, reports feeling unwell, will order labs- cbc, cmp. 12/23 continue monitor BP, encourage fluids. will lower rexulti to 0.5mg po to bedtime. MEDICAL PLAN: #Chronic R hip pain -XR R hip shows severe degenerative changes likely causing patients pain and gait instability -possibly also a component of sciatica given radiculopathy given imaging findings. XR lumbar spine shows degerative changes with osteophyte formation and narrowing of the L5-S1. Consider CT lumbar spine if symptoms not improving, otherwise recommend outpt follow up -Lidocaine patch to hip and low back. Tylenol will scheduled/ibuprofen prn (check BMP q7d if using the ibuprofen- last creatinine clearance 37). Tramadol for more severe pain -PT eval. Recommend W/C or walker with assist for now #Positional lightheadedness -BP 107/67 sitting, BP 97/62 standing -Likely r/t poor PO intake. Encourage PO hydration. IV hydration not indicated at this time -If symptoms persist recheck orthostatic VS and contact hospitalist service #Hyperglycemia -patient does not recall if she ate prior to labs last night upon arrival - a1c on 12/14 5.2% Reason for continued inpatient stay Substantial Risk for: inability to function Time Spent With Patient Time: Total time managing care of this patient today ____ minutes.
[2024-12-23 15:14] LABS: Anion Gap 11 (12-20); Blood Urea Nitrogen 28 mg/dL (9-16); Calcium 9.7 mg/dL (8.4-10.2); Carbon Dioxide 31 mmol/L (22-29); Chloride 103 mmol/L (96-108); Creatinine Clr Calc Pharmacy 40.3; Estimated Glomerular Filt Rate 56; Glucose Random 90 mg/dL (60-115); Potassium 4.4 mmol/L (3.3-5.1); Sodium 141 mmol/L (135-145)
--- NOTE | 2024-12-23 16:57 | PM.EVENT ---
Event Note Date of Service: 12/23/24 Event Note: Hospitalist service consulted for positional dizziness. Patient complained of positional dizziness described as lightheadedness during admission consult and while blood pressure did decrease, not consistent with orthostatic hypotension. Patient's symptoms have persisted and she has been drinking adequate fluids. Discussed with RN. SBP this morning 103-->90 upon standing. Has not syncopized. Does not require IVF at this time. Will add midodrine 5mg TID wtih instructions to hold should SBP > 120. Continue with PO fluids. If symptoms persist or should patient develop hypotension, please reach out. Thank you for allowing me to participate in this consult. Signing off at this time. Please do not hesitate to call for further questions or for any acute medical issues. Time Spent With Patient Time: Total time managing care of this patient today ____ minutes.
[2024-12-23 17:35] VITALS: BP 129/60
[2024-12-23 20:00] VITALS: BP 113/57; PULSE 88; RESP 18; TEMP 36.9; O2SAT 98
[2024-12-23] MEDS: Mirtazapine 15 MG TABLET PO (20:25)
[2024-12-24 08:00] VITALS: BP 119/62; PULSE 96; RESP 18; TEMP 36.8; O2SAT 99
[2024-12-24] MEDS: Lidocaine 4 % Patch ADH..PATCH 2 PATCH TRANSDERMA (09:14)
[2024-12-24 09:16] VITALS: BP 119/62
[2024-12-24] MEDS: Levothyroxine Sodium 50 MCG TABLET PO (09:16)
[2024-12-24] MEDS: Midodrine HCl 5 MG TABLET PO ×3 (09:16→17:07)
[2024-12-24] MEDS: OXcarbazepine 150 MG TABLET PO ×2 (09:16→20:16)
[2024-12-24] MEDS: Acetaminophen 325 MG TABLET 650 MG PO ×3 (09:16→20:17)
--- NOTE | 2024-12-24 12:33 | P.PNPSI_ITS ---
Subjective Subjective Date of Service: 12/24/24 Reason For Visit: CRISIS, PT WANTS TO Subjective Notes: Conditional Voluntary Interim History: Pt slept through the night. Pt reports feeling much less depressed, no SI/HI. She reports less dizziness. BP more stable. Looking forward to return home tomorrow with Carl. Medication Compliance: Yes Side effects from medications: No Review of Systems Review of Systems Yes all other systems are reviewed and are negative Constitutional: Denies fatigue and Denies fever(s) Cardiovascular: Denies chest pain Gastrointestinal: Denies abdominal pain, Denies nausea and Denies vomiting Musculoskeletal: Reports no additional musculoskeletal complaints and Denies back pain Endocrine: Denies fatigue Mental Status Exam Mental Status Exam Narrative: Appearance: wearing hospital gown, thin, somewhat malnourished, in NAD Behavior: cooperative Psychomotor: no agitation or retardation noted, mild cogwheel on right arm. not observed ambulating Speech: clear, normal rate/rhythm/volume, spontaneous TP: some gaps in memory, making connection between statements at times seems disorganized, showing some degree of loose associations. TC: overwhelmed with rent going up, worried about facing eviction/homelessness Mood: overwhelmed Affect: congruent SI: passive SI conditional especially to rent situation HI: none VH/AH: no overt signs Delusions: feels as if others have said they will help but thinks this was not the case, unclear if in fact more paranoid or confabulating. Insight/judgment: impaired x 2. memory/cog: alert, oriented to month, knows if hospital but thinks is same as PCP office [facility], when asked about the year, states 25, maybe 2525, I don't know. Her orientation to events leading to this admission are also poor, not remembering who called EMS or what was going on to prompt ED visit. She completed MOCA scored 14/30, difficulties with executive function and visuospatial (2/5), attention, language repetition (0/2)/fluency (0/1), recall (0/5). Her orientation is intact, as well as naming. Showing vascular pattern of cognitive impairment. Diagnostics Vital Signs (24Hr): Vital Signs - 24 hr 12/23/24 17:35 12/23/24 20:00 12/24/24 08:00 Temperature 98.4 F 98.2 F Pulse Rate 88 96 Respiratory Rate 18 18 Blood Pressure 129/60 113/57 L 119/62 Pulse Oximetry 98 99 Oxygen Delivery Method Room Air Room Air 12/24/24 09:16 Temperature Pulse Rate Respiratory Rate Blood Pressure 119/62 Pulse Oximetry Oxygen Delivery Method BMI result Body Mass Index 17.8 Labs 12/22/24 15:53 12/23/24 14:49 Labs: Laboratory Results - last 48 hr 12/22/24 12/22/24 12/23/24 15:15 15:53 14:49 WBC 7.0 RBC 4.01 L Hgb 12.6 Hct 36.5 L MCV 91.0 MCH 31.4 MCHC 34.5 RDW 12.5 Plt Count 233 MPV 10.7 Immature Gran % (Auto) 0.7 H Neut % (Auto) 46.6 Lymph % (Auto) 36.7 [place] % (Auto) 12.2 H Eos % (Auto) 2.7 Baso % (Auto) 1.1 Lymph # (Auto) 2.6 [place] # (Auto) 0.9 Eos # (Auto) 0.2 Baso # (Auto) 0.1 Abs Immat Gran (auto) 0.05 H Absolute Neuts (auto) 3.2 Absolute Nucleated RBC 0.000 Nucleated RBC % (auto) 0.0 Sodium 140 141 Potassium 4.1 4.4 Chloride 102 103 Carbon Dioxide 28 31 H Anion Gap 14 11 L BUN 31 H 28 H Creatinine 1.14 0.99 Estim Creat Clear Calc 35.0 40.3 Estimated GFR 47 56 Random Glucose 92 90 Calcium 9.5 9.7 Total Bilirubin 0.3 AST 20 ALT 21 Alkaline Phosphatase 71 Total Protein 7.2 Albumin 4.3 Urine Color Yellow Urine Appearance Clear Urine pH 5.5 Ur Specific [place] 1.010 Urine Protein Negative Urine Glucose (UA) Negative Urine Ketones Negative Urine Blood Negative Urine Nitrite Negative Ur Leukocyte Esterase Moderate (2+) H Urine RBC 0-2 Urine WBC 21-50 H Ur Squamous Epith Cells 0-2 Urine Bacteria None Seen Hyaline Casts 0-2 Urine Osmolality 272 L Influenza Type A (PCR) NEGATIVE Influenza Type B (PCR) NEGATIVE RSV RNA Qual (PCR) NEGATIVE SARS-CoV-2 RNA (RT-PCR) NEGATIVE Imaging Radiology Impressions: ITS Impressions Head CT 12/16/24 12:07 IMPRESSION: No acute intracranial abnormality. Electronically signed by: El Ryan MD 12/16/2024 01:18 PM [facility] Medications Medications Current Medications Acetaminophen (Acetaminophen 325 Mg Tablet) 650 mg PO TID [facility] Last Admin: 12/24/24 09:16 Dose: 650 mg Al Hydroxide/Mg Hydroxide (Magnesium Hydrox/Alum Hydrox 30 Ml Oral.Susp) 30 ml PO Q6H PRN PRN Reason: Heartburn/Nausea Albuterol Sulfate (Albuterol Sulfate 90 Mcg 8 Gm Inhaler) 2 puff INHALE Q4H PRN PRN Reason: asthma Last Admin: 12/16/24 19:01 Dose: 2 puff Brexpiprazole (Brexpiprazole 1 Mg Tablet) 0.5 mg PO BEDTIME [facility] Levothyroxine Sodium (Levothyroxine Sodium 50 Mcg Tablet) 50 mcg PO DAILY [facility] Last Admin: 12/24/24 09:16 Dose: 50 mcg Lidocaine (Lidocaine 4 % Patch Adh..Patch) 2 patch TRANSDERMA DAILY [facility]; Protocol Last Admin: 12/24/24 09:14 Dose: 2 patch Magnesium Hydroxide (Milk Of Magnesia 30 Ml Oral.Susp) 30 ml PO DAILY PRN PRN Reason: Constipation Midodrine (Midodrine Hcl 5 Mg Tablet) 5 mg PO TID@0900,1300,1700 [facility] Last Admin: 12/24/24 09:16 Dose: 5 mg Mirtazapine (Mirtazapine 15 Mg Tablet) 15 mg PO BEDTIME [facility] Last Admin: 12/23/24 20:25 Dose: 15 mg Oxcarbazepine (Oxcarbazepine 150 Mg Tablet) 150 mg PO BID [facility] Last Admin: 12/24/24 09:16 Dose: 150 mg Tramadol HCl (Tramadol Hcl 50 Mg Tablet) 50 mg PO Q6H PRN PRN Reason: Pain, Severe (Pain Scale 7-10) Last Admin: 12/23/24 02:52 Dose: 50 mg Trazodone HCl (Trazodone Hcl 50 Mg Tablet) 50 mg PO BEDTIME PRN PRN Reason: Insomnia Allergies Allergies Allergy/AdvReac Type Severity Reaction Status Date / Time penicillin V Allergy Unknown Unknown Verified 12/14/24 00:04 Assessment & Plan Assessment & Plan (1) Bipolar disorder with depression: Status: Acute Code(s): F31.9 - Bipolar disorder, unspecified (2) Cognitive impairment: Status: Acute Code(s): R41.89 - Other symptoms and signs involving cognitive functions and awareness Assessment and Plan: She completed MOCA on 12/17/2024 scored 14/30, difficulties with executive function and visuospatial (2/5), attention, language repetition (0/2)/fluency (0/1), recall (0/5). Her orientation is intact, as well as naming. Shows vascular pattern of cognitive impairment. ACL scored 5. Plan Ms. Chan is a 69 year-old woman with hx of Bipolar Disorder who was brought via EMS due to reports of wanting to . Pt apparently struggling with financial stress due to landlord increasing rent yearly and patient afraid she will soon face homelessness. Pt used to be patient of Dr. Tereso Sanchez who retired last year. Since then, pt's PCP, Dr. Vo has been prescribing psychotropic medications. Pt reports suicidal ideation conditional to financial stress related to increase rent. She also presents as very forgetful, unable to prevent much information about medication trials, past admissions, she does report hx of intentional OD sometime ago but unable to tell how long ago. She was continued on paxil 10mg po daily and trileptal 150mg po BID, started on haldol 2mg po TID. We discussed risks, benefits and alternative treatment options (may change to different antipsychotic that may also provide benefit in bipolar depression). I also suspect underlying cognitive impairment. We discussed ordering head CT- and OT MOCA and ACL. Pertinent labs completed in the ED on 12/14- included CBC without leukocytosis, slightly elevated RBC. CMP without electrolyte abnormalities, BUN slightly elevated 22, Cr. 1.18 with creatinine clearance of 39.7 (may have underlying CKD), TSH 4.04 (on levothyroxine), UA showed + blood, +nitrites, +leukocyte, culture positive for e.coli (started on ceftin 250mg PO BID x 7 days- up on 12/21/2024). EKG normal sinus rhythm, non specific ST and T wave abnormalities, Qtc 427ms. PSYCHIATRIC PLAN: 1. Continue admission to S1, CV, 15 mins 2. MEDICATIONS: * continue remeron 15mg po qhs. * continue rexulti 1mg po daily * continue scheduled tynelol for pain management as pt may not ask proactively. 3. Head CT shows atrophy and microvascular changes. 4. She completed MOCA scored 14/30, difficulties with executive function and visuospatial (2/5), attention, language repetition (0/2)/fluency (0/1), recall (0/5). Her orientation is intact, as well as naming. 12/22- reports dizziness, BP showed orthostatic hotn, reports feeling unwell, will order labs- cbc, cmp. 12/23 continue monitor BP, encourage fluids. will lower rexulti to 0.5mg po to bedtime. 12/24 continue tx. d/c 12/25 MEDICAL PLAN: #Chronic R hip pain -XR R hip shows severe degenerative changes likely causing patients pain and gait instability -possibly also a component of sciatica given radiculopathy given imaging findings. XR lumbar spine shows degerative changes with osteophyte formation and narrowing of the L5-S1. Consider CT lumbar spine if symptoms not improving, otherwise recommend outpt follow up -Lidocaine patch to hip and low back. Tylenol will scheduled/ibuprofen prn (check BMP q7d if using the ibuprofen- last creatinine clearance 37). Tramadol for more severe pain -PT eval. Recommend W/C or walker with assist for now #Positional lightheadedness -BP 107/67 sitting, BP 97/62 standing -Likely r/t poor PO intake. Encourage PO hydration. IV hydration not indicated at this time -If symptoms persist recheck orthostatic VS and contact hospitalist service #Hyperglycemia -patient does not recall if she ate prior to labs last night upon arrival - a1c on 12/14 5.2% Reason for continued inpatient stay Substantial Risk for: inability to function Time Spent With Patient Time: Total time managing care of this patient today ____ minutes.
[2024-12-24 12:35] VITALS: BP 104/56
[2024-12-24 17:07] VITALS: BP 108/70
[2024-12-24 20:00] VITALS: BP 117/63; PULSE 82; RESP 16; TEMP 36.5; O2SAT 97
[2024-12-24] MEDS: Mirtazapine 15 MG TABLET PO (20:16)
[2024-12-24] MEDS: Brexpiprazole 1 MG TABLET 0.5 MG PO (20:17)
[2024-12-25 10:00] VITALS: BP 113/52; PULSE 97; RESP 16; TEMP 36.9; O2SAT 98
[2024-12-25] MEDS: OXcarbazepine 150 MG TABLET PO (10:01)
[2024-12-25] MEDS: Levothyroxine Sodium 50 MCG TABLET PO (10:02)
[2024-12-25] MEDS: Acetaminophen 325 MG TABLET 650 MG PO (10:02)
[2024-12-25] MEDS: Lidocaine 4 % Patch ADH..PATCH 2 PATCH TRANSDERMA (10:02)
[2024-12-25] MEDS: Midodrine HCl 5 MG TABLET PO (10:02)
--- NOTE | 2024-12-25 10:45 | PM.PSYDC ---
DS: Providers Provider Date of Service: 12/25/24 Date of admission: 12/14/24 20:29 Date of discharge: 12/25/24 Primary care physician: Unknown Physician Consults: 12/14/24 23:50 Consult to Hospitalist Routine Comment: Consulting Provider: [facility] Hospitalists Reason For Exam: Hip pain r/o fall 12/23/24 14:33 Consult to Hospitalist Routine Comment: Consulting Provider: [facility] Hospitalists Reason For Exam: ortho hotn Discharging clinician: Taylor Burkett DS: Diagnosis Discharge Diagnosis (1) Bipolar disorder with depression: Status: Acute (2) Cognitive impairment: Status: Acute DS: Medications Discharge Medications Home Medications: Previous Rx's ?Medication ?Instructions ?Recorded acetaminophen 325 mg tablet 650 mg (2 x 325 mg) PO TID #90 tabs 12/25/24 albuterol sulfate 90 mcg/actuation 1 inh inhalation QID PRN 12/25/24 aerosol inhaler wheezing/SOB #6.7 grams brexpiprazole 1 mg tablet (Rexulti) 0.5 mg (1/2 x 1 mg) PO BEDTIME #30 12/25/24 tabs levothyroxine 50 mcg tablet 50 mcg PO DAILY #30 tabs 12/25/24 lidocaine 4 % topical patch 2 patch transdermal DAILY #60 ea 12/25/24 (Lidocaine Pain Relief) midodrine 5 mg tablet 5 mg PO TID@0900,1300,1700 #90 tabs 12/25/24 mirtazapine 15 mg tablet 15 mg PO BEDTIME #30 tabs 12/25/24 oxcarbazepine 150 mg tablet 150 mg PO BID #60 tabs 12/25/24 tramadol 50 mg tablet 50 mg PO BID PRN Pain, Severe 12/25/24 (Pain Scale 7-10) #30 tabs Mental Status Exam Mental Status Exam Narrative: Appearance: wearing hospital gown, thin, somewhat malnourished, in NAD Behavior: cooperative Psychomotor: no agitation or retardation noted, mild cogwheel on right arm. not observed ambulating Speech: clear, normal rate/rhythm/volume, spontaneous TP: some gaps in memory, making connection between statements at times seems disorganized, showing some degree of loose associations. TC: overwhelmed with rent going up, worried about facing eviction/homelessness Mood: overwhelmed Affect: congruent SI: passive SI conditional especially to rent situation HI: none VH/AH: no overt signs Delusions: feels as if others have said they will help but thinks this was not the case, unclear if in fact more paranoid or confabulating. Insight/judgment: impaired x 2. memory/cog: alert, oriented to month, knows if hospital but thinks is same as PCP office [facility], when asked about the year, states 25, maybe 2525, I don't know. Her orientation to events leading to this admission are also poor, not remembering who called EMS or what was going on to prompt ED visit. She completed MOCA scored 14/30, difficulties with executive function and visuospatial (2/5), attention, language repetition (0/2)/fluency (0/1), recall (0/5). Her orientation is intact, as well as naming. Showing vascular pattern of cognitive impairment. Data Data Completed and Pending Completed studies during hospitalization [Text1]: 12/22/24 12/22/24 12/23/24 15:15 15:53 14:49 WBC 7.0 RBC 4.01 L Hgb 12.6 Hct 36.5 L MCV 91.0 MCH 31.4 MCHC 34.5 RDW 12.5 Plt Count 233 MPV 10.7 Immature Gran % (Auto) 0.7 H Neut % (Auto) 46.6 Lymph % (Auto) 36.7 [place] % (Auto) 12.2 H Eos % (Auto) 2.7 Baso % (Auto) 1.1 Lymph # (Auto) 2.6 [place] # (Auto) 0.9 Eos # (Auto) 0.2 Baso # (Auto) 0.1 Abs Immat Gran (auto) 0.05 H Absolute Neuts (auto) 3.2 Absolute Nucleated RBC 0.000 Nucleated RBC % (auto) 0.0 Sodium 140 141 Potassium 4.1 4.4 Chloride 102 103 Carbon Dioxide 28 31 H Anion Gap 14 11 L BUN 31 H 28 H Creatinine 1.14 0.99 Estim Creat Clear Calc 35.0 40.3 Estimated GFR 47 56 Random Glucose 92 90 Calcium 9.5 9.7 Total Bilirubin 0.3 AST 20 ALT 21 Alkaline Phosphatase 71 Total Protein 7.2 Albumin 4.3 Urine Color Yellow Urine Appearance Clear Urine pH 5.5 Ur Specific [place] 1.010 Urine Protein Negative Urine Glucose (UA) Negative Urine Ketones Negative Urine Blood Negative Urine Nitrite Negative Ur Leukocyte Esterase Moderate (2+) H Urine RBC 0-2 Urine WBC 21-50 H Ur Squamous Epith Cells 0-2 Urine Bacteria None Seen Hyaline Casts 0-2 Urine Osmolality 272 L Influenza Type A (PCR) NEGATIVE Influenza Type B (PCR) NEGATIVE RSV RNA Qual (PCR) NEGATIVE SARS-CoV-2 RNA (RT-PCR) NEGATIVE 12/14/24 Unknown Urine clean catch - Clean Catch Midstream Urine Culture - Final Escherichia coli Imaging Diagnostic Imaging Impressions Head CT 12/16/24 12:07 IMPRESSION: No acute intracranial abnormality. Electronically signed by: El Ryan MD 12/16/2024 01:18 PM EST DS: Summary Hospital Course Hospital Course: per CARE team nova, pt was BIBA to [facility] ED after someone (believed to be her partner) called EMS. she was saying upon arrival at the ED, i just wanna , just let me , explaining she did not wish to be a burden any longer. she was described by CARE team staff as disorganized, easily derailed, and scattered. she avoided answering questions about AVH and appeared to hear things the interviewer did not. she expressed distress that new landlords were increasing her rent, which she interpreted as an effort to force her to move out from her apartment. she also made some statements indicating friction between her and her partner. she and her partner rent 2 vertically adjacent units presently. complaining of mice in her apartment and referencing clutter. she references her tendency to fail to take medications as prescribed, either by not taking them at all or by overdosing. she has not been taking medications recently. on interview with pt is calm and cooperative. she appears more organized and engaging than as described in CARE team nova. she reports some relief since arriving in the hospital, and her goal is to restart and stabilize on medications. expresses agreement with plan. Past Psychiatric History: Dx: mentions memory issues, bipolar disorder, PTSD HOSPITAL COURSE On the unit, pt was admitted on a CV and placed on 15 minutes checks for safety. Pt was ambulating with a walker and reported right side hip, which showed Time Spent with Patient Time attestation: Total time managing care of this patient today ____ minutes. Discharge Plan Discharge Anticipated Discharge Date/Time: 12/25/24 10:29 Patient Disposition: Home, Self-Care Discharge Diagnosis: Bipolar Disorder MCI Referrals: [facility] [Other] - 12/31/24 ([facility] will restart your services at their usual time next monday. They are aware of your discharge and will restart on monday at there usual time. Your meal service unfortunately will not start until 12/26 due to there policy. If you have any questions or concerns please call the number listed.) [facility] [Other] - 3-5 Days (Rosa Underwood will be reaching out to you after discharge to continue the conversation about your housing. [facility] reach out to you after discharge between 3-7 days after. If you have any concerns or questions please call [phone] ext [phone].) Tangela Negron ([facility]) [Other] - 12/26/24 11:00 am (You will see Tangela in office for your intake, they'll go over your history and general questions of your medications. If you have any questions about them ask them at this time. The appointment will be 12/26/24 at 11:00AM.Itll be in the office at the address listed.) Laura Chapa MD [Physician] - 01/09/25 10:30 am (You will see on 01/09 at 10:30 AM. If you need to reschedule or cancel the appointment please feel free to call the number provided) Kelli Dunn, PMHNP-BC [Physician] - 01/14/25 11:00 am (You will see Kelli via telehealth on 01/14/25. They will send the link to the appointment to your phone. If you would like to change it to in person please call the number listed. this will be the appointment to look over your current medication list and make any changes if necessary. Your second appointment will be for 02/13/25 at 11:00 AM. This will be your updated appointment to check on how the medications re doing and see if any changes need to be done.) Discharge Medications: New acetaminophen 325 mg Tablet 650 mg PO TID Qty: 90 0RF midodrine 5 mg Tablet 5 mg PO TID@0900,1300,1700 Qty: 90 0RF Rexulti 1 mg Tablet 0.5 mg PO BEDTIME Qty: 30 0RF oxcarbazepine 150 mg Tablet 150 mg PO BID Qty: 60 0RF lidocaine [Lidocaine Pain Relief] 4 % Adhesive Patch,Medicated 2 patch transdermal DAILY Qty: 60 0RF Protocol: Apply to: Apply to: right hip and low back tramadol 50 mg Tablet 50 mg PO BID PRN (Reason: Pain, Severe (Pain Scale 7-10)) Qty: 30 0RF levothyroxine 50 mcg Tablet 50 mcg PO DAILY Qty: 30 0RF mirtazapine 15 mg Tablet 15 mg PO BEDTIME Qty: 30 0RF Changed albuterol sulfate 90 mcg/actuation HFA aerosol inhaler 1 inh inhalation QID PRN (Reason: wheezing/SOB) Qty: 6.7 0RF Discontinued oxcarbazepine 150 mg tablet 5 tab PO BEDTIME acetaminophen 650 mg tablet extended release 1 tab PO Q8H PRN (Reason: pain) levothyroxine 50 mcg tablet 1 tab PO DAILY paroxetine HCl 20 mg tablet 1 tab PO DAILY lamotrigine 100 mg tablet 3 tab PO DAILY Discharge Orders: Discharge Order (Routine); Ordered 12/25/24 Ordered By: Taylor Burkett Diet: Regular diet Activity on Discharge: Use cane or walker Stand Alone Forms: Patient Portal Discharge page, Community Support Print Language: Azeri Care Plan Goals: Maintain mood No SI/HI Health Concerns: Follow up with PCP- briana WALLIS, started on midodrine, chronic hip pain s/s degenerative changes Plan of Treatment: 1. Take medications as prescribed 2. Go to ED or call 911 in event of emergency Assessment: no SI/HI, brighter affect. sleeping and eating well.
== END 2024-12-25 11:12 | disposition home or self-care (01) | DRG 885 ==
LOC: HO.ED 12-14 03:14 → HO.PGERI 12-14 21:36
PROVIDERS: Physician Assistant; Physician Assistant Medical; Social Worker; Admitting Provider Psychiatry & Neurology Psychiatry; Emergency Provider Internal Medicine; Visit Provider Psychiatry & Neurology Psychiatry
DX: F31.9 Bipolar disorder, unspecified (principal); N39.0 Urinary tract infection, site not specified; R45.851 Suicidal ideations; R73.9 Hyperglycemia, unspecified; R42 Dizziness and giddiness; M54.31 Sciatica, right side; R41.89 Other symptoms and signs involving cognitive functions and awareness; Z20.822 Contact with and (suspected) exposure to COVID-19; Z91.148 Patient's other noncompliance with medication regimen for other reason; Z79.890 Hormone replacement therapy; Z79.899 Other long term (current) drug therapy
CPT/HCPCS: 0241U; 36415; 70450; 72100; 73502; 80048; 80053; 80061; 80143; 80179; 80307; 81001; 82607; 82746; 82947; 83036; 83735; 83935; 84443; 85025; 87086; 87088; 87186; 93005; 97162; 99285; S9485

== ENCOUNTER 2024-12-14 20:29 | Outpatient (BNV) | payer MEDICARE, MEDICAID, SELFPAY | END 2024-12-23 10:08 | PROVIDERS: Admitting Provider Psychiatry & Neurology Psychiatry; Emergency Provider Internal Medicine; Visit Provider Internal Medicine | DX: R42 Dizziness and giddiness (principal); R53.83 Other fatigue | CPT/HCPCS: 93010 ==

== ENCOUNTER 2024-12-14 20:29 | Outpatient (BNV) | payer MEDICARE, MEDICAID, SELFPAY | END 2024-12-16 12:07 | PROVIDERS: Admitting Provider Psychiatry & Neurology Psychiatry; Emergency Provider Internal Medicine; Visit Provider Radiology Diagnostic Radiology | DX: G31.84 Mild cognitive impairment of uncertain or unknown etiology (principal) | CPT/HCPCS: 70450 ==

== ENCOUNTER 2024-12-14 20:29 | Outpatient (BNV) | payer MEDICARE, MEDICAID, SELFPAY | END 2024-12-15 14:00 | PROVIDERS: Admitting Provider Psychiatry & Neurology Psychiatry; Emergency Provider Internal Medicine; Visit Provider Nuclear Medicine | DX: M16.11 Unilateral primary osteoarthritis, right hip (principal); M54.31 Sciatica, right side | CPT/HCPCS: 72100; 73502 ==

== ENCOUNTER 2024-12-14 20:29 | Outpatient (BNV) | payer MEDICARE, MEDICAID, SELFPAY | END 2024-12-14 22:36 | PROVIDERS: Admitting Provider Psychiatry & Neurology Psychiatry; Emergency Provider Internal Medicine; Visit Provider Internal Medicine Cardiovascular Disease | DX: R94.31 Abnormal electrocardiogram [ECG] [EKG] (principal) | CPT/HCPCS: 93010 ==

== ENCOUNTER → 2024-12-14 20:29 | Outpatient (BNV) | payer MEDICARE, MEDICAID, SELFPAY | PROVIDERS: Admitting Provider Psychiatry & Neurology Psychiatry; Emergency Provider Internal Medicine; Visit Provider Psychiatry & Neurology Psychiatry | DX: F31.4 Bipolar disorder, current episode depressed, severe, without psychotic features (principal); R41.89 Other symptoms and signs involving cognitive functions and awareness | CPT/HCPCS: 90792; 99232 ==

== ENCOUNTER → 2024-12-14 20:29 | Outpatient (BNV) | payer MEDICARE, MEDICAID, SELFPAY | PROVIDERS: Admitting Provider Psychiatry & Neurology Psychiatry; Emergency Provider Internal Medicine; Visit Provider Physician Assistant | DX: Z02.2 Encounter for examination for admission to residential institution (principal) | CPT/HCPCS: 99429; 99499 ==

== ENCOUNTER 2024-12-28 19:52 | Emergency (ER) | payer MEDICARE, MEDICAID, SELFPAY ==
--- NOTE | ~2024-12-28 | CT_ITS ---
CLINICAL HISTORY: intermittent headaches, spasms CT head without contrast COMPARISON: CT/KS/SR - CT HEAD/BRAIN WO IV CON - 12/16/24 12:07 EST FINDINGS: Global cerebral volume loss and chronic microvascular ischemic changes. No acute intracranial hemorrhage, extra-axial fluid collection, mass effect, or midline shift. Ventricular system and basilar cisterns are patent. Doty-white matter differentiation is maintained. No gross orbital abnormality. No suspicious or acute bone lesion. Mastoid air cells and paranasal sinuses are predominantly clear. IMPRESSION: 1. No acute intracranial abnormality. 2. Global cerebral volume loss and chronic microvascular ischemic changes. This document has been electronically signed by: Marco A Connors MD on 12/28/2024 21:27:17
[2024-12-28 19:55] VITALS: BP 111/41; PULSE 80; RESP 22; TEMP 36.7; O2SAT 96; BMI 23.5
--- NOTE | 2024-12-28 19:56 | ED_ITS ---
HPI - General Adult General Chief complaint: Headache Stated complaint: headache Time Seen by Provider: 12/28/24 21:17 Source: patient Mode of arrival: ambulatory Limitations: no limitations History of Present Illness ED Provider: HPI narrative: patient's history of bipolar disorder complaining of headache started earlier today with light sensitivity and nausea no head injury no fever no chills no neck pain Related Data Previous Rx's ?Medication ?Instructions ?Recorded acetaminophen 325 mg tablet 650 mg (2 x 325 mg) PO TID #90 tabs 12/25/24 albuterol sulfate 90 mcg/actuation 1 inh inhalation QID PRN 12/25/24 aerosol inhaler wheezing/SOB #6.7 grams brexpiprazole 1 mg tablet (Rexulti) 0.5 mg (1/2 x 1 mg) PO BEDTIME #30 12/25/24 tabs levothyroxine 50 mcg tablet 50 mcg PO DAILY #30 tabs 12/25/24 lidocaine 4 % topical patch 2 patch transdermal DAILY #60 ea 12/25/24 (Lidocaine Pain Relief) midodrine 5 mg tablet 5 mg PO TID@0900,1300,1700 #90 tabs 12/25/24 mirtazapine 15 mg tablet 15 mg PO BEDTIME #30 tabs 12/25/24 oxcarbazepine 150 mg tablet 150 mg PO BID #60 tabs 12/25/24 tramadol 50 mg tablet 50 mg PO BID PRN Pain, Severe 12/25/24 (Pain Scale 7-10) #30 tabs Allergies Allergy/AdvReac Type Severity Reaction Status Date / Time penicillin V Allergy Unknown Unknown Verified 12/28/24 20:02 Review of Systems 2 Review of Systems: Yes all other systems are reviewed and are negative PMFSH Past Medical History Medical History Asthma Hypothyroid Bipolar disorder Osteoarthritis of right hip Social History Social History Household Members: Significant Other Housing: Apartment Unable to assess alcohol history related to: Unknown Patient Tobacco Use Status: Tobacco use Unknown Smoked in Last 30 Days: No Use of substances other than those prescribed or required for medical reasons: No Advance Directives: No Advance Directives Information Provided: Yes Do you have a plan to hurt others: No Plan service: No Current occupational status: retired Sexual orientation: Straight/Heterosexual Physical Exam ED Vital Signs: Vital Signs - 24 hr 12/28/24 19:55 12/28/24 22:32 12/28/24 22:33 Temperature 98.0 F 98 F 98 F Pulse Rate 80 74 74 Respiratory Rate 22 H 16 16 Blood Pressure 111/41 L 127/63 127/63 Pulse Oximetry 96 98 98 Oxygen Delivery Method Room Air Room Air Room Air BMI result Body Mass Index 23.5 Appearance: Alert. Oriented X3. No acute distress. photosensitive+ Eyes: PERRLA, No Nystagmus ENT: Pharynx normal. Oral Mucosa moist Neck: Normal inspection. Neck supple. Kernig sign negative CVS: Normal heart rate and rhythm. Pulses normal. Respiratory: No respiratory distress. Equal air entry bilateral, no wheezing/rales/rhonchi Abdomen: Soft and nontender. Bowel sounds are present, no mass palpable, no CVA tenderness Skin: Skin warm and dry. Normal skin color. Normal skin turgor. Extremities: No lower extremity edema. No calf tenderness Neuro: Oriented X 3. No motor deficit. No sensory deficit.No cerebellar signs , cranial nerves II-XII intact Course Course Course Narrative: RME performed by Ofelia Elliott PA-C. Patient is a 69 year old assigned female at presenting to the emergency department with intermittent headaches. Patient states she has been having intermittent headaches ever since being discharged home from the psychiatric unit here. Patient states that she believes it is because of a new medication they prescribed her but they are not sure what medication it is. Detailed physical exam and review of systems are deferred to the case repairer. Labs, swabs, and imaging ordered. Patient placed back in the waiting room pending room availability and results. Medications Administered Discontinued Medications Generic Name Dose Route Start Last Admin Trade Name Freq PRN Reason Stop Dose Admin Acetaminophen/Butalbital/Caffeine 1 tab 12/28/24 21:28 12/28/24 22:06 Butalb/Acetamin/Caff 50/325/40 Tablet PO 12/28/24 21:29 1 tab ONCE ONE Administration Medical Decision Making Medical Decision Making [facility] Narrative: /stress headache benign vitals stable labs stable CT of the head is negative for acute will discharge patient home Lab Data [facility] Lab Attestation statement: I reviewed the patient's lab results. 12/28/24 20:21 12/28/24 20:21 Labs: Lab Results 12/28/24 Range/Units 20:21 WBC 7.5 (4.8-10.8) X10*3/uL RBC 3.63 L (4.20-5.50) X10*6/uL Hgb 11.4 L (12.0-16.0) g/dl Hct 32.4 L (37.0-47.0) % MCV 89.3 (80.0-98.0) fL MCH 31.4 (27.0-33.0) pg MCHC 35.2 H (31.0-35.0) g/dl RDW 12.9 (11.0-16.0) % Plt Count 216 (160-400) X10*3/uL MPV 10.3 (9.4-12.3) fL Immature Gran % (Auto) 0.5 H (0.0-0.4) % Neut % (Auto) 56.3 (45-73) % Lymph % (Auto) 32.4 (20-40) % [place] % (Auto) 8.9 (2-11) % Eos % (Auto) 1.2 (0-4) % Baso % (Auto) 0.7 (0-2) % Lymph # (Auto) 2.4 (1.2-4.9) X10*3/uL [place] # (Auto) 0.7 (0.1-1.2) X10*3/uL Eos # (Auto) 0.1 (0.0-0.4) X10*3/uL Baso # (Auto) 0.1 (0.0-0.2) X10*3/uL Abs Immat Gran (auto) 0.04 H (0.00-0.03) X10*3/uL Absolute Neuts (auto) 4.2 (2.0-8.3) x10*3/uL Absolute Nucleated RBC 0.000 (0.0-0.012) X10*3/uL Nucleated RBC % (auto) 0.0 (0.0-0.2) /100WBC PT 10.5 L (10.9-12.4) SEC INR 0.9 (0.9-1.1) Sodium 145 (135-145) mmol/L Potassium 3.9 (3.3-5.1) mmol/L Chloride 106 (96-108) mmol/L Carbon Dioxide 28 (22-29) mmol/L Anion Gap 15 (12-20) BUN 31 H (9-16) mg/dL Creatinine 1.37 (0.5-1.4) mg/dL Estim Creat Clear Calc 38.2 Estimated GFR 38 Random Glucose 140 H (60-115) mg/dL Calcium 9.8 (8.4-10.2) mg/dL Magnesium 2.1 (1.6-2.6) mg/dL Total Bilirubin 0.2 (0.0-1.0) mg/dL AST 25 (5-31) U/L ALT 31 (0-31) U/L Alkaline Phosphatase 61 (39-117) U/L Total Protein 7.3 (6.5-8.0) g/dL Albumin 4.3 (3.5-5.0) g/dL Influenza Type A (PCR) NEGATIVE (Negative) Influenza Type B (PCR) NEGATIVE (Negative) RSV RNA Qual (PCR) NEGATIVE (Negative) SARS-CoV-2 RNA (RT-PCR) NEGATIVE (Negative) Independent Interpretation I performed an independent interpretation of an: CT Scan Radiology Impression Discussion of test interpretation with radiology: I have reviewed the radiologist's reading. Radiologist Impression: nad Discharge Plan Discharge Clinical Impression: Migraine Patient Disposition: Home, Self-Care Instructions: Migraine Headache (ED) Additional Instructions: take Tylenol for headache follow up with your PCP as needed Prescriptions: No Action acetaminophen 325 mg Tablet 650 mg PO TID Qty: 90 0RF midodrine 5 mg Tablet 5 mg PO TID@0900,1300,1700 Qty: 90 0RF Rexulti 1 mg Tablet 0.5 mg PO BEDTIME Qty: 30 0RF oxcarbazepine 150 mg Tablet 150 mg PO BID Qty: 60 0RF lidocaine [Lidocaine Pain Relief] 4 % Adhesive Patch,Medicated 2 patch transdermal DAILY Qty: 60 0RF Protocol: Apply to: Apply to: right hip and low back tramadol 50 mg Tablet 50 mg PO BID PRN (Reason: Pain, Severe (Pain Scale 7-10)) Qty: 30 0RF levothyroxine 50 mcg Tablet 50 mcg PO DAILY Qty: 30 0RF mirtazapine 15 mg Tablet 15 mg PO BEDTIME Qty: 30 0RF albuterol sulfate 90 mcg/actuation HFA aerosol inhaler 1 inh inhalation QID PRN (Reason: wheezing/SOB) Qty: 6.7 0RF Interventions: ED Discharge Assessment Last Done: 12/28/24 22:33 Discharge Date/Time: 12/28/24 22:33 Print Language: Gabonese
--- NOTE | 2024-12-28 20:22 | MHC.EDTECH ---
Patient brought into triage area,labs,and sars/flu/rsv obtained and sent to lab
[2024-12-28 20:30] LABS: MANUAL DIFF FLAG NO
[2024-12-28 20:34] LABS: Basophils Absolute Auto 0.1 X10*3/uL (0.0-0.2); Basophils Percent Auto 0.7 % (0-2); Eosinophils Absolute Auto 0.1 X10*3/uL (0.0-0.4); Eosinophils Percent Auto 1.2 % (0-4); Hematocrit 32.4 % (37.0-47.0); Hemoglobin 11.4 g/dl (12.0-16.0); Imm Gran Abs Auto 0.04 X10*3/uL (0.00-0.03); Imm Gran Pct Auto 0.5 % (0.0-0.4); Lymphocytes Absolute Auto 2.4 X10*3/uL (1.2-4.9); Lymphocytes Percent Auto 32.4 % (20-40); Mean Corpuscular HGB Conc 35.2 g/dl (31.0-35.0); Mean Corpuscular Hemoglobin 31.4 pg (27.0-33.0); Mean Corpuscular Volume 89.3 fL (80.0-98.0); Mean Platelet Volume 10.3 fL (9.4-12.3); Monocytes Absolute Auto 0.7 X10*3/uL (0.1-1.2); Monocytes Percent Auto 8.9 % (2-11); Neutrophils Absolute Auto 4.2 x10*3/uL (2.0-8.3); Neutrophils Percent Auto 56.3 % (45-73); Platelet Count 216 X10*3/uL (160-400); Red Blood Count 3.63 X10*6/uL (4.20-5.50); Red Cell Distribution Width 12.9 % (11.0-16.0); White Blood Count 7.5 X10*3/uL (4.8-10.8)
--- OUTSIDE RECORDS SUMMARY | 2024-12-28 20:37 | XMS_ITS | Clinical Summary ---
Author Organization [employer] Address [address] [facility] 7t [place] [address] Care Team Providers Care Ad Operations Coordinator Name Role Phone Laura Chapa MD Primary Care Provider [phone] Allergies Active Allergy Reactions Criticality Noted Date [...] Active Calcium + Vitamin D3 600-10 MG-MCG tabletIndications: Continuous leakage of urine Take 1 tablet by [...] 12/07/19 24 Active meloxicam (Mobic) 7.5 MG tabletIndications: Pain TAKE 1 TABLET BY MOUTH EVERY DAY IN THE MORNING 30 tablet 1 12/11/19 24 Active oxybutynin XL (Ditropan-XL) 15 MG 24 hr tabletIndications: Continuous leakage of urine TAKE 1 TABLET BY MOUTH EVERY DAY IN THE MORNING 30 tablet 11 10/08/20 24 Active lamoTRIgine (LaMICtal) 100 MG tablet TAKE 3 TABLETS BY MOUTH EVERY DAY 90 tablet 3 10/21/19 25 Active PARoxetine (Paxil) 20 MG tablet TAKE 1 TABLET BY MOUTH EVERY DAY IN THE MORNING 30 tablet 3 11/27/19 25 Active OXcarbazepine (Trileptal) 150 MG tablet TAKE 5 TABLETS BY MOUTH AT BEDTIME 150 tablet 3 12/13/19 25 Active albuterol 108 (90 Base) MCG/ACT inhaler INHALE 1 PUFF EVERY 6 HOURS IF NEEDED FOR WHEEZING. INHALE 2 PUFFS ROUTE EVERY 4 HOURS 18 g 1 12/18/19 25 Active levothyroxine (Synthroid, Levoxyl) 50 MCG tabletIndications: Acquired hypothyroidism TAKE 1 TABLET BY MOUTH EVERY DAY 30 tablet 12/27/19 25 Active OXcarbazepine (Trileptal) 150 MG tablet TAKE 5 TABLETS BY MOUTH AT BEDTIME 150 tablet 3 08/19/20 24 025 Discontinued albuterol 108 (90 Base) MCG/ACT inhaler INHALE 1 PUFF EVERY 6 (SIX) HOURS IF NEEDED FOR WHEEZING. INHALE 2 PUFFS ROUTE EVERY 4 HOURS 18 g 1 10/30/19 25 025 Discontinued levothyroxine (Synthroid, Levoxyl) 50 MCG tabletIndications: Acquired hypothyroidism TAKE 1 TABLET BY MOUTH EVERY DAY 30 tablet 11/27/19 25 025 Discontinued Active Problems Problem Noted Date Diagnosed Date [...] intervention , Patient to reach out to [facility] team as needed, Comply with medication , Patient to engage in OP therapy , and Patient to reach out to [facility] as needed. Hypothyroidism 03/22/2016 08/09/2023 Osteopenia 06/03/2014 08/09/2023 Encounters Date Type Department Care Team Description 12/28/2024 Orders Only GENERIC EXTERNAL DATA DEPARTMENT Provider, Generic External Data 12/27/2024 Population Health Risk Score [facility] () Department [address] [id number] Provider, Population Health Generic 12/25/2024 Refill [facility] MED & PEDS [address] [place] [address] Laura Chapa MD Acquired hypothyroidism 12/24/2024 Patient Outreach [facility] [address] [place] [address] Laura Chapa MD Transition Of Care (Tcm) (HDF scheduled) 12/18/2024 Telephone [facility] [address] [place] [address] Laura Chapa MD Call Back Request (/) 12/17/2024 Refill [facility] [address] [place] [address] Alee Colin MD 12/13/2024 Refill [facility] [address] [place] [address] Laura Chapa MD 11/27/2024 Refill [facility] [address] [place] [address] Chris Daugherty MD Acquired hypothyroidism 11/27/2024 Refill [facility] [address] [place] [address] Laura Chapa MD 10/29/2024 Telephone [facility] [address] [place] [address] Laura Chapa MD Medication Question 10/29/2024 Refill [facility] MED & PEDS [address] [place] [address] Chris Daugherty MD 10/28/2024 Refill [facility] MED & PEDS [address] [place] [address] Chris Daugherty MD 10/27/2024 Refill [facility] MED & P[facility]S [address] [place] [address] Laura Chapa MD Acquired hypothyroidism 10/19/2024 Refill [facility] & PEDS [address] [place] [address] Laura Chapa MD 10/08/2024 Refill [facility] [address] [place] [address] Laura Chapa MD Continuous leakage of urine 10/01/2024 10:30 AM EST Telemedicine [facility] [address] [place] [address] Chris Daugherty MD Shortness of breath (Primary Dx) 09/30/2024 Telephone [facility] MED & PEDS [address] [place] [address] Laura Chapa MD 09/30/2024 Travel from Last 3 Months Immunizations Name Administration [...] 08/30/2023 11:22 AM EST Plan of Treatment Upcoming Encounters Date Type Department Care Team (Late st Contact Info) Description 01/09/2025 10:30 AM EDT Office Visit [facility] MED & PEDS [address] [place] [address] Laura Chapa MD 505 [place] [address] Health Maintenance Due Date Last Done Comments [...] on patient's age to complete this topic Procedures Procedure Name Priority Date/Time Associated Diagnosis Comments CBC WITH AUTO DIFFERENTIAL Routine 12/28/2024 8:21 PM EDT from Last 3 Months Results * (ABNORMAL) CBC auto differential (12/28/2024 8:21 PM EDT) White Blood Count 7.5 4.8 - 10.8 X10*3/uL [facility] Red Blood Count 3.63(L) 4.20 - 5.50 X10*6/uL [facility] Hemoglobin 11.4(L) 12.0 - 16.0 g/dl [facility] Hematocrit 32.4(L) 37.0 - 47.0 % [facility] Mean Corpuscular Volume 89.3 80.0 - 98.0 fL [facility] Mean Corpuscular Hemoglobin 31.4 27.0 - 33.0 pg [facility] Mean Corpuscular HGB Conc 35.2(H) 31.0 - 35.0 g/dl [facility] Red Cell Distribution Width 12.9 11.0 - 16.0 % [facility] Platelet Count 216 160 - 400 X10*3/uL [facility] Mean Platelet Volume 10.3 9.4 - 12.3 fL [facility] Neutrophils Percent Auto 56.3 45 - 73 % [facility] Imm Gran Pct Auto 0.5(H) 0.0 - 0.4 % [facility] Lymphocytes Percent Auto 32.4 20 - 40 % [facility] Monocytes Percent Auto 8.9 2 - 11 % [facility] Eosinophils Percent Auto 1.2 0 - 4 % [facility] Basophils Percent Auto 0.7 0 - 2 % [facility] NRBC Pct Auto 0.0 0.0 - 0.2 /100WBC [facility] Neutrophils Absolute Auto 4.2 2.0 - 8.3 x10*3/uL [facility] Imm Gran Abs Auto 0.04(H) 0.00 - 0.03 X10*3/uL [facility] Lymphocytes Absolute Auto 2.4 1.2 - 4.9 X10*3/uL [facility] Monocytes Absolute Auto 0.7 0.1 - 1.2 X10*3/uL [facility] Eosinophils Absolute Auto 0.1 0.0 - 0.4 X10*3/uL [facility] Basophils Absolute Auto 0.1 0.0 - 0.2 X10*3/uL [facility] NRBC Abs Auto 0.000 0.0 - 0.012 X10*3/uL [facility] 12/28/2024 8:21 PM EDT 12/28/2024 8:29 PM EDT us Generic External Data Provider LAB BLOOD ORDERAB LES Final Result [facility] [address] [place] [address] [phone] from Last 3 Months Insurance MEDICARE [facility] * Guarantor: Maria Ines Chan A Account Type Relation to Patient Date of Phone Billing Address Personal/Family Self [address] Care Teams Ad Operations Coordinator Relationship Specialty Start Date End Date Laura Chapa MD [address] [place] [address] PCP - General Family Medicine 10/16/18
--- OUTSIDE RECORDS SUMMARY | 2024-12-28 20:37 | XMS_ITS | Encounter Summary ---
Author Organization [employer] [facility] Address [address] [place] [address] 7t [place] [address] Care Team Providers Care Stabilizing Machine Operator Name Role Phone Laura Chapa MD Primary Care Provider [phone] Reason for Visit * Reason Comments Med Refill Encounter Details Date Type Department Care Team ([facility] Contact Info) Description 12/17/[address] [facility] MED & PEDS [address] [place] [address] Alee Colin MD [address] [place], [place] Social History Tobacco Use Types Packs/Day Years [...] as of this encounter Plan of Treatment Upcoming Encounters Date Type Department Care Team ([facility] Contact Info) Description 01/09/2025 10:30 AM EDT Office Visit [facility] MED & PEDS [address] [place] [address] Laura Chapa MD [address] [place], [place] [phone] documented as of this encounter Visit Diagnoses Not on filedocumented in this encounter Additional Health Concerns Assessment Noted Time PHQ-9 Depression Total Score: 9 11/22/19 24 2:46 PM EST documented as of this encounter Care Teams Stabilizing Machine Operator Relationship Specialty Start Date End Date Laura Chapa MD [address] [place] [address] PCP - General Family Medicine 10/16/18 documented as of this encounter
--- OUTSIDE RECORDS SUMMARY | 2024-12-28 20:37 | XMS_ITS | Encounter Summary ---
Author Organization [employer] [facility] Address [address] [place] [address] 7t [place] [address] Care Team Providers Care Ladies Underwear Operator Name Role Phone Laura Chapa MD Primary Care Provider [phone] Reason for Visit * Reason Comments Med Refill Encounter Details Date Type Department Care Team ([facility] Contact Info) Description 12/08/2023 Refill [facility] MED & PEDS [address] [place] [address] Laura Chapa MD [address] [place] [address] Social History Tobacco Use Types Packs/Day Years [...] Upcoming Encounters Date Type Department Care Team ([facility] Contact Info) Description 01/09/2025 10:30 AM EDT Office Visit [facility] MED & PEDS [address] [place] [address] Laura Chapa MD [address] [place] [address] documented as of this encounter Visit Diagnoses Not on filedocumented in this encounter Additional Health Concerns Assessment Noted Time PHQ-9 Depression Total Score: 9 11/22/19 24 2:46 PM EST documented as of this encounter Care Teams Ladies Underwear Operator Relationship Specialty Start Date End Date Laura Chapa MD [address] [place] [address] PCP - General Family Medicine 10/16/18 documented as of this encounter
--- OUTSIDE RECORDS SUMMARY | 2024-12-28 20:37 | XMS_ITS | Encounter Summary ---
Author Organization [employer] [facility] Address [address] [place] [address] 7t [place] [address] Care Team Providers Care Personnel Director Name Role Phone Laura Chapa MD Primary Care Provider [phone] Reason for Visit * Reason Comments Med Refill Encounter Details Date Type Department Care Team (Late Contact Info) Description 12/25/2024 Refill [facility] MED & PEDS [address] [place] [address] Laura Chapa MD [address] [place] [address] Acquired hypothyroidism Social History Tobacco Use Types [...] Upcoming Encounters Date Type Department Care Team ([facility] Contact Info) Description 01/09/2025 10:30 AM EDT Office Visit [facility] MED & PEDS [address] [place] [address] Laura Chapa MD [address] [place], [place] [phone] documented as of this encounter Visit Diagnoses Diagnosis Acquired hypothyroidism Unspecified hypothyroidism documented in this encounter Additional Health Concerns Assessment Noted Time PHQ-9 Depression Total Score: 9 11/22/19 24 2:46 PM EST documented as of this encounter Care Teams Personnel Director Relationship Specialty Start Date End Date Laura Chapa MD [address] [place] [address] PCP - General Family Medicine 10/16/18 documented as of this encounter
--- OUTSIDE RECORDS SUMMARY | 2024-12-28 20:37 | XMS_ITS | Encounter Summary ---
Author Organization [facility] Address [address] [place] [address] Care Team Providers Care Power Brake Rebuilder Name Role Phone Laura Chapa MD Primary Care Provider [phone] Encounter Details Date Type Department Care Team ([facility] Contact Info) Description 12/27/2024 Population Health Risk Score [facility] () Department [address] [place] [phone] Provider, Population Health Generic Social History Tobacco Use Types Packs/Day Years [...] Encounters Date Type Department Care Team (Late Contact Info) Description 01/09/2025 10:30 AM EDT Office Visit [facility] CHC MED & PEDS [address] [place], [place] [phone] Laura Chapa MD [address] [place], [place] [phone] documented as of this encounter Visit Diagnoses Not on filedocumented in this encounter Additional Health Concerns Assessment Noted Time PHQ-9 Depression Total Score: 9 11/22/19 24 2:46 PM EST documented as of this encounter Care Teams Power Brake Rebuilder Relationship Specialty Start Date End Date Laura Chapa MD [address] [place] [address] PCP - General Family Medicine 10/16/18 documented as of this encounter
--- OUTSIDE RECORDS SUMMARY | 2024-12-28 20:37 | XMS_ITS | Encounter Summary ---
Author Organization [employer] [facility] Address [address] [place] [address] 7t [place] [address] Care Team Providers Care Grinder Operator Tool Name Role Phone Laura Chapa MD Primary Care Provider [phone] Reason for Visit * Reason Comments Med Refill Encounter Details Date Type Department Care Team ([facility] Contact Info) Description 02/14/2024 Refill [facility] MED & PEDS [address] [place] [address] Laura Chapa MD [address] [place], [place] [phone] Social History Tobacco Use Types Packs/Day Years [...] Upcoming Encounters Date Type Department Care Team ([facility] Contact Info) Description 01/09/2025 10:30 AM EDT Office Visit [facility] MED & PEDS [address] [place] [address] Laura Chapa MD [address] [place] [address] documented as of this encounter Visit Diagnoses Not on filedocumented in this encounter Additional Health Concerns Assessment Noted Time PHQ-9 Depression Total Score: 9 11/22/19 24 2:46 PM EST documented as of this encounter Care Teams Grinder Operator Tool Relationship Specialty Start Date End Date Laura Chapa MD [address] [place] [address] PCP - General Family Medicine 10/16/18 documented as of this encounter
--- OUTSIDE RECORDS SUMMARY | 2024-12-28 20:37 | XMS_ITS | Encounter Summary ---
Author Organization [employer] Address [address] [facility] 7t [place] [address] Care Team Providers Care Press Leader Name Role Phone Laura Chapa MD Primary Care Provider [phone] Reason for Visit * Reason Onset Date Comments Call Back Request 12/18/2024 Encounter Details Date Type Department Care Team ([facility] st Contact Info) Description 12/18/2024 Telephone [facility] [address] [place] [address] Laura Chapa MD [address] [place], [place] [phone] Call Back Request (/) Social History Tobacco Use Types Packs/Day Years [...] encounter Miscellaneous Notes * Telephone Encounter - Rosa Landaverde RN - 12/18/2024 3:30 PM EST TC to Rosa with [facility]. No answer. Voicemail identified Rosa and organization. Author left voicemail stating that pt has not been seen in office since 08/2023 and no documentation regarding py capacity since. Instructed Rosa to return call to office if further questions. * Telephone Encounter - Julita Burksambrocio Anaya - 12/18/2024 2:17 PM EST Tc from Rosa with [facility] requesting a call back to clarify if pt has capacity- health proxy, if PCP has any concerns and if there's any medication complaint. [phone] Ext [phone] documented in this encounter Plan of Treatment Upcoming Encounters Date Type Department Care Team ([facility] st Contact Info) Description 01/09/2025 10:30 AM EDT Office Visit [facility] MED & PEDS [address] [place] [address] Laura Chapa MD [address] [place] [address] documented as of this encounter Visit Diagnoses Not on filedocumented in this encounter Additional Health Concerns Assessment Noted Time PHQ-9 Depression Total Score: 9 11/22/19 24 2:46 PM EST documented as of this encounter Care Teams Press Leader Relationship Specialty Start Date End Date Laura Chapa MD [address] [place] [address] PCP - General Family Medicine 10/16/18 documented as of this encounter
--- OUTSIDE RECORDS SUMMARY | 2024-12-28 20:37 | XMS_ITS | Encounter Summary ---
Author Organization [employer] Address [address] [facility] 7t [place] [address] Care Team Providers Care Leather Worker Name Role Phone Laura Chapa MD Primary Care Provider [phone] Reason for Visit * Reason Comments Transition Of Care (Tcm) HDF scheduled Encounter Details Date Type Department Care Team ([facility] st Contact Info) Description 12/24/2024 Patient Outreach [facility] [address] [place] [address] Laura Chapa MD [address] [place], [place] [phone] Transition Of Care (Tcm) (HDF scheduled) Social History Tobacco Use Types Packs/Day Years [...] AM EDT documented as of this encounter Progress Notes * Clarice Spencer - 12/24/2024 1:52 PM EDT Received incoming call from the [facility]. BETH Spoke with Arpita from [facility] Patient has beenscheduled for an HDF appointment on 01/13/2025 at 10:[address] Chapa. requested discharge summaries to be faxed to the Care Management Department at [phone] CC will follow up on discharge summary following patient's discharge. documented in this encounter Plan of Treatment Upcoming Encounters Date Type Department Care Team (Late st Contact Info) Description 01/09/2025 10:30 AM EDT Office Visit [facility] MED & PEDS [address] [place] [address] Laura Chapa MD [address] [place] [address] documented as of this encounter Visit Diagnoses Not on filedocumented in this encounter Additional Health Concerns Assessment Noted Time PHQ-9 Depression Total Score: 9 11/22/19 24 2:46 PM EST documented as of this encounter Care Teams Leather Worker Relationship Specialty Start Date End Date Laura Chapa MD [address] [place] [address] PCP - General Family Medicine 10/16/18 documented as of this encounter
--- OUTSIDE RECORDS SUMMARY | 2024-12-28 20:37 | XMS_ITS | Clinical Summary ---
Author Organization [facility] Address [address] [facility] [address] [place] [address] Phone Care Team Providers Care Bulwark Carpenter Name Role Phone Laura Chapa MD Primary Care Provider [phone] Allergies Active Allergy Reactions Criticality Noted Date [...] Active Problems Problem Noted Date Diagnosed Date [place] adverse reaction 02/04/2024 Stage 3a chronic kidney [...] [place] Care Teams Bulwark Carpenter Relationship Specialty Start Date End Date Laura Chapa MD [address] PCP - General Internal Medicine 11/06/23
--- OUTSIDE RECORDS SUMMARY | 2024-12-28 20:37 | XMS_ITS | Encounter Summary ---
Author Organization [employer] Address [address] [facility] [address] 7t [place] [address] Care Team Providers Care Well Control Instructor Name Role Phone Laura Chapa MD Primary Care Provider [phone] Reason for Visit * Reason Onset Date Comments Medication Question 09/13/2023 Encounter Details Date Type Department Care Team ([facility] st Contact Info) Description 09/13/[address] [facility] [address] [place] [address] Laura Chapa MD [address] [place], [place] [phone] Medication Question Social History Tobacco Use Types [...] 20 MG tablet was reduce to 10mgbut procedure writer does not see on med 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 TC placed to patient on both home and mobile number to further clarify questions about Paxil script. No answer on either number. LM to call us back. Routing back to [facility] nurses to try again. * Telephone Encounter - Yunior Rosales - 09/13/2023 8:25 AM EST Tc from patient calling to inform the medication PARoxetine (Paxil) 20 MG tablet was reduce to 10mgbut procedure writer does not see on med 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 documented in this encounter Plan of Treatment Upcoming Encounters Date Type Department Care Team (Late st Contact Info) Description 01/09/2025 10:30 AM EDT Office [facility] MED & PEDS [address] [place] [address] Laura Chapa MD [address] [place] [address] documented as of this encounter Visit Diagnoses Not on filedocumented in this encounter Additional Health Concerns Assessment Noted Time PHQ-9 Depression Total Score: 7 08/09/20 23 11:34 AM EDT documented as of this encounter Care Teams Well Control Instructor Relationship Specialty Start Date End Date Laura Chapa MD [address] [place] [address] PCP - General Family Medicine 10/16/18 documented as of this encounter
--- OUTSIDE RECORDS SUMMARY | 2024-12-28 20:37 | XMS_ITS | Encounter Summary ---
Author Organization [facility] [employer] [facility] Address [address] [place] [address] 7t [place] [address] Care Team Providers Care Meat Manager Name Role Phone Laura Chapa MD Primary Care Provider [phone] Encounter Details Date Type Department Care Team ([facility] Contact Info) Description 11/02/2023 Orders Only [facility] CHC MED & PEDS [address] [place] [address] Laura Chapa MD [address] [place], [place] [phone] Social History Tobacco Use Types Packs/Day Years Used Date Smoking Tobacco: Never Passive Smoke Exposure: Never Smokeless Tobacco: Never Depression Answer Date Recorded Patient Health Questionnaire-9 Score 7 10/23/2023 Patient Health Questionnaire-9 Score 7 10/23/2023 Last PHQ-9: Questionnaire Data Not on file 0 10/23/2023 Depression Answer Date Recorded Patient Health Questionnaire-2 Score 2 10/23/2023 Comments Unknown Sex and Gender Information Value Date Recorded Sex Assigned at Female 08/15/2022 10:17 AM EDT Legal Sex Female 10:17 AM EDT Gender Identity Choose not to disclose 10:17 AM EDT Sexual Orientation Choose not to disclose 2021 10:17 AM EDT documented as of this encounter Plan of Treatment Upcoming Encounters Date Type Department Care Team ([facility] Contact Info) Description 01/09/2025 10:30 AM EDT Office Visit [facility] CHC MED & PEDS [address] [place] [address] Laura Chapa MD [address] [place] [address] documented as of this encounter Visit Diagnoses Not on filedocumented in this encounter Additional Health Concerns Assessment Noted Time PHQ-9 Depression Total Score: 7 10/23/19 24 9:25 AM EST documented as of this encounter Care Teams Meat Manager Relationship Specialty Start Date End Date Laura Chapa MD [address] [place] [address] PCP - General Family Medicine 10/16/18 documented as of this encounter
--- OUTSIDE RECORDS SUMMARY | 2024-12-28 20:37 | XMS_ITS | Encounter Summary ---
Author Organization [employer] Address 75 [facility] 7t [place] [address] Care Team Providers Care Restaurant Culinary Manager Name Role Phone Laura Chapa MD Primary Care Provider [phone] Reason for Visit * Reason Onset Date Comments Call Back Request 08/28/2023 Encounter Details Date Type Department Care Team ([facility] st Contact Info) Description 08/28/2023 Telephone [facility] MEDICINE [address] [place] [address] Laura Chapa MD [address] [place], [place] [phone] Call Back Request Social History Tobacco Use [...] Description 01/09/2025 10:30 AM EDT Office Visit [facility] MED & PEDS [address] [place] [address] Laura Chapa MD [address] [place] [address] documented as of this encounter Visit Diagnoses Not on filedocumented in this encounter Additional Health Concerns Assessment Noted Time PHQ-9 Depression Total Score: 7 08/09/20 23 11:34 AM EDT documented as of this encounter Care Teams Restaurant Culinary Manager Relationship Specialty Start Date End Date Laura Chapa MD [address] [place] [address] PCP - General Family Medicine 10/16/18 documented as of this encounter
--- OUTSIDE RECORDS SUMMARY | 2024-12-28 20:37 | XMS_ITS | Encounter Summary ---
Author Organization [employer] Address [address] [facility] 7t [place] [address] Care Team Providers Care Gummed Tape Press Operator Name Role Phone Laura Chapa MD Primary Care Provider [phone] Reason for Visit * Reason Comments Med Refill Encounter Details Date Type Department Care Team ([facility] st Contact Info) Description 09/29/2023 Refill [facility] MED [facility]EDS [address] [place] [address] Laura Chapa MD [address] [place] [address] Pain Social History Tobacco Use Types Packs/Day [...] Description 01/09/2025 10:30 AM EDT Office Visit [facility] [address] [place] [address] Laura Chapa MD [address] [place] [address] documented as of this encounter Visit Diagnoses Diagnosis Pain Generalized pain documented in this encounter Additional Health Concerns Assessment Noted Time PHQ-9 Depression Total Score: 7 08/09/20 23 11:34 AM EDT documented as of this encounter Care Teams Gummed Tape Press Operator Relationship Specialty Start Date End Date Laura Chapa MD [address] [place] [address] PCP - General Family Medicine 10/16/18 documented as of this encounter
--- OUTSIDE RECORDS SUMMARY | 2024-12-28 20:37 | XMS_ITS | Encounter Summary ---
Author Organization [facility] Address [address] [place] [address] 7t [place] [address] Care Team Providers Care Boiler Tester Name Role Phone Laura Chapa MD Primary Care Provider [phone] Encounter Details Date Type Department Care Team ([facility] Contact Info) Description 08/10/2023 Orders Only [facility] MED & [facility]EDS [address] [place], [place] [phone] Laura Chapa MD [address] [place], [place] [phone] Renal insufficiency (Primary Dx) Social History Tobacco [...] Upcoming Encounters Date Type Department Care Team ([facility] Contact Info) Description 01/09/2025 10:30 AM EDT Office Visit [facility] MED & PEDS [address] [place], [place] [phone] Laura Chapa MD [address] [place], [place] [phone] documented as of this encounter Visit Diagnoses Diagnosis Renal insufficiency- Primary Unspecified disorder of kidney and ureter documented in this encounter Additional Health Concerns Assessment Noted Time PHQ-9 Depression Total Score: 7 08/09/20 23 11:34 AM EDT documented as of this encounter Care Teams Boiler Tester Relationship Specialty Start Date End Date Laura Chapa MD [address] [place] [address] PCP - General Family Medicine 10/16/18 documented as of this encounter
--- OUTSIDE RECORDS SUMMARY | 2024-12-28 20:37 | XMS_ITS | Encounter Summary ---
Author Organization [employer] [facility] Address [address] [place] [address] 7t [place] [address] Care Team Providers Care Therapist Rrt Name Role Phone Laura Chapa MD Primary Care Provider [phone] Encounter Details Date Type Department Care Team ([facility] Contact Info) Description 06/20/2023 Orders Only [facility] MED & PEDS [address] [place] [address] Laura Chapa MD [address] [place] [address] Social History Tobacco Use Types Packs/Day Years [...] Upcoming Encounters Date Type Department Care Team ([facility] Contact Info) Description 01/09/2025 10:30 AM EDT Office Visit [facility] MED & PEDS [address] [place] [address] Laura Chapa MD [address] [place] [address] documented as of this encounter Procedures Procedure Name Priority Date/Time Associated Diagnosis Comments BASIC METABOLIC PANEL, FASTING Routine 08/09/2023 11:53 AM EDT COMPLETE BLOOD COUNT MAN DIF Routine 07/29/2023 10:46 PM EDT documented in this encounter Results * (ABNORMAL) Basic Metabolic Panel, Fasting (08/09/2023 11:53 AM EDT) Sodium 140 135 - 145 mmol/L [facility] Potassium 3.9 3.3 - 5.1 mmol/L [facility] Chloride 103 96 - 108 mmol/L [facility] Carbon Dioxide 25 22 - 29 mmol/L [facility] Anion Gap 16 12 - 20 [facility] Urea Nitrogen (BUN) 28(H) 9 - 16 mg/dL [facility] Creatinine, Serum 1.47(H) 0.5 - 1.4 mg/dL [facility] Estimated Glomerular Filt Rate 36 [facility] Comment:NOTE: For -Am erican individuals, multiply the result by 1.210.Chronic Kidney Disease: Estimated GFR < 60 mL/min/1.46d4Hjnhro Kidney Disease: Estimated GFR < 15 mL/min/1.73m2 Glucose Fasting 93 60 - 99 mg/dL [facility] Calcium 11.2(H) 8.4 - 10.2 mg/dL [facility] 08/09/2023 11:5 3 AM EDT 08/09/2023 2:55 PM EDT us Laura Chapa MD LAB BLOOD ORDERABLES Final Re sult [facility] [address] [place] [phone] * (ABNORMAL) Complete Blood Count Manual Diff (07/29/2023 10:46 PM EDT) White Blood Count 9.0 4.8 - 10.8 X10*3/uL [facility] Red Blood Count 3.42(L) 4.20 - 5.50 X10*6/uL [facility] Hemoglobin 10.6(L) 12.0 - 16.0 g/dl [facility] Hematocrit 30.2(L) 37.0 - 47.0 % [facility] Mean Corpuscular Volume 88.3 80.0 - 98.0 fL [facility] Mean Corpuscular Hemoglobin 31.0 27.0 - 33.0 pg [facility] Mean Corpuscular HGB Conc 35.1(H) 31.0 - 35.0 g/dl [facility] Red Cell Distribution Width 13.2 11.0 - 16.0 % [facility] Platelet Count 307 160 - 400 X10*3/uL [facility] Mean Platelet Volume 10.0 9.4 - 12.3 fL [facility] NRBC Pct Auto 0.0 0.0 - 0.2 /100WBC [facility] NRBC Abs Auto 0.000 0.0 - 0.012 X10*3/uL [facility] Neutrophils % Manual 69 45 - 73 % [facility] Band Neutrophils Percent 5 3 - 5 % [facility] Lymphocytes Percent Manual 18(L) 20 - 40 % [facility] Monocytes Percent Manual 5 2 - 11 % [facility] EOSINOPHILS % MANUAL 1 0 - 4 % [facility] BASOPHILS % MANUAL 1 0 - 2 % [facility] Metamyelocytes % (Manual) 1 % [facility] NEUTROPHILS ABSOLUTE MANUAL 6.7 2.0 - 8.3 X10*3/uL [facility] LYMPHOCYTES ABSOLUTE MANUAL 1.6 1.2 - 4.9 X10*3/uL [facility] MONOCYTES ABSOLUTE MANUAL 0.5 0.1 - 1.2 X10*3/uL [facility] EOSINOPHILS ABSOLUTE MANUAL 0.1 0.0 - 0.4 X10*3/uL [facility] BASOPHILS ABSOLUTE MANUAL 0.1 0.0 - 0.2 X10*3/uL [facility] Absolute Metamyelocytes 0.1 X10*3/uL [facility] Platelet Estimate NORMAL N[facility]AL [facility] Platelet Morphology Comment NORMAL [facility] RBC Morphology NORMAL [facility] 07/29/2023 10:4 6 PM EDT 07/29/2023 10:54 PM EDT us [facility] External Provider LAB BLO OD ORDERABLES Final Result [facility] [address] [place] [phone] documented in this encounter Visit Diagnoses Not on filedocumented in this encounter Care Teams Therapist Rrt Relationship Specialty Start Date End Date Laura Chapa MD [address] [place] [phone] PCP - General Family Medicine 10/16/18 documented as of this encounter
--- OUTSIDE RECORDS SUMMARY | 2024-12-28 20:37 | XMS_ITS | Encounter Summary ---
Author Organization [employer] [facility] Address [address] [place] [address] 7t [place] [address] Care Team Providers Care Transplant Worker Name Role Phone Laura Chapa MD Primary Care Provider Reason for Visit * Reason Comments Med Refill Encounter Details Date Type Department Care Team ([facility] Contact Info) Description 12/13/2024 Refill [facility] MED & PEDS [address] [place] [address] Laura Chapa MD [address] [place] [address] Social History Tobacco Use Types Packs/Day Years [...] Encounters Date Type Department Care Team ([facility] Contact Info) Description 01/09/2025 10:30 AM EDT Office Visit [facility] MED & PEDS [address] [place] [address] Laura Chapa MD [address] [place] [address] documented as of this encounter Visit Diagnoses Not on filedocumented in this encounter Additional Health Concerns Assessment Noted Time PHQ-9 Depression Total Score: 9 11/22/19 24 2:46 PM EST documented as of this encounter Care Teams Transplant Worker Relationship Specialty Start Date End Date Laura Chapa MD [address] [place] [address] PCP - General Family Medicine 10/16/18 documented as of this encounter
[2024-12-28 20:40] LABS: INTERNATIONAL NORM RATIO 0.9 (0.9-1.1); Prothrombin Time 10.5 SEC (10.9-12.4)
[2024-12-28 20:46] LABS: Alanine Aminotransferase 31 U/L (0-31); Albumin Level 4.3 g/dL (3.5-5.0); Alkaline Phosphatase 61 U/L (39-117); Anion Gap 15 (12-20); Aspartate Amino Transferase 25 U/L (5-31); Bilirubin Total 0.2 mg/dL (0.0-1.0); Blood Urea Nitrogen 31 mg/dL (9-16); Calcium 9.8 mg/dL (8.4-10.2); Carbon Dioxide 28 mmol/L (22-29); Chloride 106 mmol/L (96-108); Creatinine Clr Calc Pharmacy 38.2; Estimated Glomerular Filt Rate 38; Glucose Random 140 mg/dL (60-115); Magnesium 2.1 mg/dL (1.6-2.6); Potassium 3.9 mmol/L (3.3-5.1); Sodium 145 mmol/L (135-145); Total Protein 7.3 g/dL (6.5-8.0)
[2024-12-28 21:09] LABS: Influenza A PCR NEGATIVE (Negative); Influenza B PCR NEGATIVE (Negative); Resp Syncy Virus RNA Qual PCR NEGATIVE (Negative); SARS COV2 PCR INHOUSE NEGATIVE (Negative)
[2024-12-28] MEDS: Butalb/Acetamin/Caff 50/325/40 TABLET 1 TAB PO (22:06)
[2024-12-28 22:32] VITALS: BP 127/63; PULSE 74; RESP 16; TEMP 36.6; O2SAT 98
[2024-12-28 22:33] VITALS: BP 127/63; PULSE 74; RESP 16; TEMP 36.6; O2SAT 98
== END 2024-12-28 22:33 | disposition home or self-care (01) ==
PROVIDERS: Physician Assistant Medical; Emergency Provider Internal Medicine; PCP Pediatrics
DX: G43.909 Migraine, unspecified, not intractable, without status migrainosus (principal); R79.1 Abnormal coagulation profile; J45.909 Unspecified asthma, uncomplicated; E03.9 Hypothyroidism, unspecified; Z03.818 Encounter for observation for suspected exposure to other biological agents ruled out; Z79.899 Other long term (current) drug therapy
CPT/HCPCS: 0241U; 70450; 80053; 83735; 85025; 85610; 99284

== ENCOUNTER → 2024-12-28 19:58 | Outpatient (BNV) | payer MEDICARE, MEDICAID, SELFPAY | PROVIDERS: Emergency Provider Internal Medicine; PCP Pediatrics; Visit Provider Radiology Diagnostic Radiology | DX: G93.89 Other specified disorders of brain (principal); I67.82 Cerebral ischemia | CPT/HCPCS: 70450 ==

== ENCOUNTER 2025-01-15 09:20 | Outpatient (REF) | payer MEDICARE, MEDICAID, SELFPAY ==
--- OUTSIDE RECORDS SUMMARY | 2025-01-15 10:23 | XMS_ITS | Clinical Summary ---
Author Organization [facility] Address [address] [facility] [address] [place] [address] Phone Care Team Providers Care Forming Department Supervisor Name Role Phone Laura Chapa MD Primary Care Provider [phone] Allergies Active Allergy Reactions Criticality Noted Date [...] Active Problems Problem Noted Date Diagnosed Date [place] adverse reaction 02/04/2024 Stage 3a chronic kidney [...] - PCV) 02/28/2014 02/28/2013, 03/01/2012 Influenza Vaccine (Season Ended) 2025 Hepatitis B Vaccine Aged Out No longe r eligible based on patient's age to complete this topic Insurance [place] Care Teams Forming Department Supervisor Relationship Specialty Start Date End Date Laura Chapa MD [address] PCP - General Internal Medicine 11/06/23
--- OUTSIDE RECORDS SUMMARY | 2025-01-15 10:23 | XMS_ITS | Encounter Summary ---
Author Organization [employer] Address [address] [facility] 7t [place] [address] Care Team Providers Care Joy Operator Helper Name Role Phone Laura Chapa MD Primary Care Provider [phone] Reason for Visit * Reason Comments Med Refill Encounter Details Date Type Department Care Team ([facility] st Contact Info) Description 09/29/2023 Refill [facility] MED & PEDS [address] [place] [address] Laura Chapa MD [address] [place] [address] Pain Social History Tobacco Use Types Packs/Day [...] Care Team (Late st Contact Info) Description 03/13/2025 11:00 AM EDT Office Visit [facility] MED & PEDS [address] [place] [address] Laura Chapa MD [address] [place] [address] documented as of this encounter Visit Diagnoses Diagnosis Pain Generalized pain documented in this encounter Additional Health Concerns Assessment Noted Time PHQ-9 Depression Total Score: 7 08/09/20 23 11:34 AM EDT documented as of this encounter Care Teams Joy Operator Helper Relationship Specialty Start Date End Date Laura Chapa MD [address] [place] [address] PCP - General Family Medicine 10/16/18 documented as of this encounter
--- OUTSIDE RECORDS SUMMARY | 2025-01-15 10:23 | XMS_ITS | Encounter Summary ---
Author Organization [facility] Address [address] [facility] 7t [place] [address] Care Team Providers Care Special Procedures Nurse Name Role Phone Laura Chapa MD Primary Care Provider [phone] Encounter Details Date Type Department Care Team ([facility] Contact Info) Description 06/20/2023 Orders Only [facility] MED & PEDS [address] [place] [address] Laura Chapa MD [address] [place] [address] Social History Tobacco Use Types Packs/Day Years [...] Upcoming Encounters Date Type Department Care Team ([facility] Contact Info) Description 03/13/2025 11:00 AM EDT Office Visit [facility] MED & PEDS [address] [place] [address] Laura Chapa MD [address] [place] [address] documented as of this encounter Procedures Procedure Name Priority Date/Time Associated Diagnosis Comments BASIC METABOLIC PANEL, FASTING Routine 08/09/2023 11:53 AM EDT COMPLETE BLOOD COUNT MAN DIF Routine 07/29/2023 10:46 PM EDT documented in this encounter Results * (ABNORMAL) Basic Metabolic Panel, Fasting (08/09/2023 11:53 AM EDT) Sodium 140 135 - 145 mmol/L [facility] Potassium 3.9 3.3 - 5.1 mmol/L [facility] Chloride 103 96 - 108 mmol/L [facility] Carbon Dioxide 25 22 - 29 mmol/L [facility] Anion Gap 16 12 - 20 [facility] Urea Nitrogen (BUN) 28(H) 9 - 16 mg/dL [facility] Creatinine, Serum 1.47(H) 0.5 - 1.4 mg/dL [facility] Estimated Glomerular Filt Rate 36 [facility] Comment:NOTE: For -Am erican individuals, multiply the result by 1.210.Chronic Kidney Disease: Estimated GFR < 60 mL/min/1.35d4Jypock Kidney Disease: Estimated GFR < 15 mL/min/1.73m2 Glucose Fasting 93 60 - 99 mg/dL [facility] Calcium 11.2(H) 8.4 - 10.2 mg/dL [facility] 08/09/2023 11:5 3 AM EDT 08/09/2023 2:55 PM EDT us Laura Chapa MD LAB BLOOD ORDERABLES Final Re sult [facility] [address] [place] [phone] * (ABNORMAL) Complete Blood Count Manual Diff (07/29/2023 10:46 PM EDT) White Blood Count 9.0 4.8 - 10.8 X10*3/uL [facility] Red Blood Count 3.42(L) 4.20 - 5.50 X10*6/uL [facility] Hemoglobin 10.6(L) 12.0 - 16.0 g/dl [facility] Hematocrit 30.2(L) 37.0 - 47.0 % [facility] Mean Corpuscular Volume 88.3 80.0 - 98.0 fL [facility] Mean Corpuscular Hemoglobin 31.0 27.0 - 33.0 pg [facility] Mean Corpuscular HGB Conc 35.1(H) 31.0 - 35.0 g/dl [facility] Red Cell Distribution Width 13.2 11.0 - 16.0 % [facility] Platelet Count 307 160 - 400 X10*3/uL [facility] Mean Platelet Volume 10.0 9.4 - 12.3 fL [facility] NRBC Pct Auto 0.0 0.0 - 0.2 /100WBC [facility] NRBC Abs Auto 0.000 0.0 - 0.012 X10*3/uL [facility] Neutrophils % Manual 69 45 - 73 % [facility] Band Neutrophils Percent 5 3 - 5 % [facility] Lymphocytes Percent Manual 18(L) 20 - 40 % [facility] Monocytes Percent Manual 5 2 - 11 % [facility] EOSINOPHILS % MANUAL 1 0 - 4 % [facility] BASOPHILS % MANUAL 1 0 - 2 % [facility] Metamyelocytes % (Manual) 1 % [facility] NEUTROPHILS ABSOLUTE MANUAL 6.7 2.0 - 8.3 X10*3/uL [facility] LYMPHOCYTES ABSOLUTE MANUAL 1.6 1.2 - 4.9 X10*3/uL [facility] MONOCYTES ABSOLUTE MANUAL 0.5 0.1 - 1.2 X10*3/uL [facility] EOSINOPHILS ABSOLUTE MANUAL 0.1 0.0 - 0.4 X10*3/uL [facility] BASOPHILS ABSOLUTE MANUAL 0.1 0.0 - 0.2 X10*3/uL [facility] Absolute Metamyelocytes 0.1 X10*3/uL [facility] Platelet Estimate NORMAL [facility]AL [facility] Platelet Morphology Comment NORMAL [facility] RBC Morphology NORMAL [facility] 07/29/2023 10:4 6 PM EDT 07/29/2023 10:54 PM EDT us [facility] External Provider LAB BLO OD ORDERABLES Final Result [facility] [address] [place] [address] [phone] documented in this encounter Visit Diagnoses Not on filedocumented in this encounter Care Teams Special Procedures Nurse Relationship Specialty Start Date End Date Laura Chapa MD [address] [place] [phone] PCP - General Family Medicine 10/16/18 documented as of this encounter
--- OUTSIDE RECORDS SUMMARY | 2025-01-15 10:23 | XMS_ITS | Encounter Summary ---
Author Organization [employer] Address [address] [facility] [address] 7[address] [place] [address] Care Team Providers Care Procedure Manager Name Role Phone Laura Chapa MD Primary Care Provider [phone] Reason for Visit * Reason Onset Date Comments Medication Question 09/13/2023 Encounter Details Date Type Department Care Team ([facility] Contact Info) Description 09/13/2023 Telephone [facility] MEDICINE [address] [place] [address] Laura Chapa MD [address] [place], [place] [phone] Medication Question Social History Tobacco Use Types [...] 20 MG tablet was 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 TC placed to patient on both home and mobile number to further clarify questions about Paxil script. No answer on either number. LM to call us back. Routing back to [facility] nurses to try again. * Telephone Encounter - Yunior Rosales - 09/13/2023 8:25 AM EST Tc from patient calling to inform the medication PARoxetine (Paxil) 20 MG tablet was 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 documented in this encounter Plan of Treatment Upcoming Encounters Date Type Department Care Team (Late st Contact Info) Description 03/13/2025 11:00 AM EDT Office Visit [facility] MED & PEDS [address] [place] [address] Laura Chapa MD [address] [place] [address] documented as of this encounter Visit Diagnoses Not on filedocumented in this encounter Additional Health Concerns Assessment Noted Time PHQ-9 Depression Total Score: 7 08/09/20 23 11:34 AM EDT documented as of this encounter Care Teams Procedure Manager Relationship Specialty Start Date End Date Laura Chapa MD [address] [place] [address] PCP - General Family Medicine 10/16/18 documented as of this encounter
--- OUTSIDE RECORDS SUMMARY | 2025-01-15 10:23 | XMS_ITS | Encounter Summary ---
Author Organization [employer] Address [address] [facility] 7t [place] [address] Care Team Providers Care Dialer Name Role Phone Laura Chapa MD Primary Care Provider Reason for Visit * Reason Onset Date Comments Call Back Request 08/28/2023 Encounter Details Date Type Department Care Team ([facility] Contact Info) Description 08/28/2023 Telephone [facility] MEDICINE [address] [place] [address] Laura Chapa MD [address] [place] [address] Call Back Request Social History Tobacco Use [...] Description 03/13/2025 11:00 AM EDT Office Visit [facility] MED & PEDS [address] [place] [address] Laura Chapa MD [address] [place] [address] documented as of this encounter Visit Diagnoses Not on filedocumented in this encounter Additional Health Concerns Assessment Noted Time PHQ-9 Depression Total Score: 7 08/09/20 23 11:34 AM EDT documented as of this encounter Care Teams Dialer Relationship Specialty Start Date End Date Laura Chapa MD [address] [place] [address] PCP - General Family Medicine 10/16/18 documented as of this encounter
--- OUTSIDE RECORDS SUMMARY | 2025-01-15 10:23 | XMS_ITS | Clinical Summary ---
Author Organization [employer] Address [address] 7[address] [place] [address] Care Team Providers Care Digital Pre Press Operator Name Role Phone Laura Chapa MD Primary Care Provider [phone] Allergies Active Allergy Reactions Criticality Noted Date Comments Penicillin V 11/11/2010 Other reaction(s): rash Medications * This document contains information received from the source organization and may not represent a complete record from that organization. omega-3 (Fish Oil) 1000 MG capsule Take 1 capsule by mouth 1 (one) time each day. 06/07/20 16 Active Calcium + Vitamin D3 600-10 MG-MCG tabletIndications :Continuous leakage of urine Take 1 tablet by mouth 2 times daily. 180 tablet 3 10/18/19 23 Active ferrous sulfate 325 (65 Fe) MG tablet TAKE 2 TABLETS BY MOUTH EVERY DAY 60 tablet 3 12/07/19 24 Active oxybutynin XL (Ditropan-XL) 15 MG 24 hr tabletIndications :Continuous leakage of urine TAKE 1 TABLET BY MOUTH EVERY DAY IN THE MORNING 30 tablet 11 10/08/20 24 Active albuterol 108 (90 Base) MCG/ACT inhaler INHALE 1 PUFF EVERY 6 HOURS IF NEEDED FOR WHEEZING. INHALE 2 PUFFS ROUTE EVERY 4 HOURS 18 g 1 12/18/19 25 Active levothyroxine (Synthroid, Levoxyl) 50 MCG tabletIndications :Acquired hypothyroidism TAKE 1 TABLET BY MOUTH EVERY DAY 30 tablet 12/27/19 25 Active acetaminophen (Tylenol) 325 MG tablet Take 2 tablets by mouth every 6 (six) hours during the day. 12/26/19 25 Active Rexulti 1 MG tablet Take 0.5 tablets by mouth at bedtime. 12/27/19 25 Active midodrine (Proamatine) 5 MG tablet Take 1 tablet by mouth every 6 (six) hours during the day. 12/26/19 Active traMADol (Ultram) 50 MG tablet Take 1 tablet by mouth if needed in the morning and at bedtime. 12/26/19 25 Active OXcarbazepine (Trileptal) 150 MG tablet Take 1 tablet by mouth 2 times daily. Active lidocaine (Lidoderm) 5 % patch Apply 1 patch topically Once per day. Remove & discard patch within 12 hours or as directed by MD. Active Multiple Vitamin (multivitamin) tablet Take 1 tablet by mouth Once per day. Active lidocaine (Lidoderm) 5 % patchIndications: Pain Apply 1 patch topically Once per day. Remove & discard patch within 12 hours or as directed by MD. 30 patch 3 01/14/20 25 Active mirtazapine (Remeron) 15 MG tablet Take 1 tablet (15 mg) by mouth at bedtime. 30 tablet 1 01/14/20 25 Active meclizine (Antivert) 25 MG tablet take 1 tablet (25MG) by oral route 3 times every day as needed 05/04/20 21 2024 Discontinued(M ed list cleanup (will not trigger notification to Pharmacy)) tolterodine LA (Detrol LA) 4 MG 24 hr capsule Take 1 Capsule by Oral route once a day 05/31/20 22 2024 Discontinued(M ed list cleanup (will not trigger notification to Pharmacy)) acetaminophen (Tylenol 8 Hour) 650 MG ER tablet TAKE 1 TABLET BY MOUTH EVERY 8 HOURS NEEDED FOR PAIN 60 tablet 5 09/11/20 23 2024 Discontinued(M ed list cleanup (will not trigger notification to Pharmacy)) meloxicam (Mobic) 7.5 MG tabletIndications :Pain TAKE 1 TABLET BY MOUTH EVERY DAY IN THE MORNING 30 tablet 1 12/11/19 24 2024 Discontinued(M ed list cleanup (will not trigger notification to Pharmacy)) lamoTRIgine (LaMICtal) 100 MG tablet TAKE 3 TABLETS BY MOUTH EVERY DAY 90 tablet 3 10/21/19 25 2024 Discontinued(M ed list cleanup (will not trigger notification to Pharmacy)) albuterol 108 (90 Base) MCG/ACT inhaler INHALE 1 PUFF EVERY 6 (SIX) HOURS IF NEEDED FOR WHEEZING. INHALE 2 PUFFS ROUTE EVERY 4 HOURS 18 g 1 10/30/19 25 2024 Discontinued PARoxetine (Paxil) 20 MG tablet TAKE 1 TABLET BY MOUTH EVERY DAY IN THE MORNING 30 tablet 3 11/27/19 25 2024 Discontinued(M ed list cleanup (will not trigger notification to Pharmacy)) levothyroxine (Synthroid, Levoxyl) 50 MCG tabletIndications :Acquired hypothyroidism TAKE 1 TABLET BY MOUTH EVERY DAY 30 tablet 11/27/19 25 2024 Discontinued OXcarbazepine (Trileptal) 150 MG tablet TAKE 5 TABLETS BY MOUTH AT BEDTIME 150 tablet 3 12/13/19 25 2024 Discontinued(M ed list cleanup (will not trigger notification to Pharmacy)) mirtazapine (Remeron) 15 MG tablet Take 1 tablet by mouth at bedtime. 12/26/19 25 2024 Discontinued(R eorder (will not trigger notification to Pharmacy)) Active Problems Problem Noted Date Diagnosed Date Protein-calorie malnutrition, unspecified severi ty 01/13/2025 Shortness of breath 10/01/2024 Assessment & Plan [...] Warm handoff internal psychiatric provider, External OP BH therapy referral , Patient Self Plan Patient to utilize skills provided in intervention , Patient to reach out to [facility] team as needed, Comply with medication , Patient to engage in OP therapy , and Patient to reach out to [facility] as needed. Hypothyroidism 03/22/2016 08/09/2023 Osteopenia 06/03/2014 08/09/2023 Encounters Date Type Department Care Team Description 01/09/2025 10:30 AM EDT Office Visit [facility] [address] [place] [address] Laura Chapa MD Protein-calorie malnutrition, unspecified severity (CMS/HCC) (Primary Dx); Bipolar disorder, in partial remission, most recent episode mixed (CMS/HCC); Acquired hypothyroidism; Pain; Foot pain, right 01/09/2025 Travel 12/28/2024 Orders Only GENERIC EXTERNAL DATA DEPARTMENT Provider, Generic External Data 12/27/2024 Population [facility] Risk Score [facility] () Department [address] [place] [phone] Provider, Population Health Generic 12/25/2024 Refill [facility] PEDS [address] [place] [address] Laura Chapa MD Acquired hypothyroidism 12/24/2024 Patient Outreach [facility] [address] [place] [address] Laura Chapa MD Transition Of Care (Tcm) (HDF scheduled) 12/18/2024 Telephone [facility] [address] [place] [address] Laura Chapa MD Call Back Request (/) 12/17/2024 Refill [facility] [address] [place] [address] Alee Colin MD 12/13/2024 Refill [facility] [address] [place] [address] Laura Chapa MD 11/27/2024 Refill [facility] [address] [place] [address] Chris Daugherty MD Acquired hypothyroidism 11/27/2024 Refill [facility] [address] [place] [address] Laura Chapa MD 10/29/2024 Telephone [facility] [address] [place] [address] Laura Chapa MD Medication Question 10/29/2024 Refill [facility] [address] [place] [address] Chris Daugherty MD 10/28/2024 Refill [facility] [address] [place] [address] Chris Daugherty MD 10/27/2024 Refill [facility] [address] [place] [address] Laura Chapa MD Acquired hypothyroidism 10/19/2024 Refill [facility] [address] [place] [address] Laura Chapa MD from Last 3 Months Immunizations Name Administration [...] Sign Reading Time Taken Comments Blood Pressure 140/78 01/09/2025 10:41 AM EDT Pulse 82 01/09/2025 10:41 AM EDT Temperature 36.7 ??C (98 ??F) 01/09/2025 10:41 AM EDT Respiratory Rate 16 01/09/2025 10:41 AM EDT Oxygen Saturation 98% 01/09/2025 10:41 AM EDT Inhaled Oxygen Concentration - - Weight 48.1 kg (106 lb) 01/09/2025 10:41 AM EDT Height 153 cm (5' 0.25 ) 01/09/2025 10:41 AM EDT Body Mass Index 20.53 01/09/2025 10:41 AM EDT Plan of Treatment Upcoming Encounters Date Type Department Care Team ([facility] st Contact Info) Description 03/13/2025 11:00 AM EDT Office Visit [facility]ED[facility] [address], [place] [phone] Laura Chapa MD [address] [place], [place] [phone] Health Maintenance Due Date Last Done Comments [...] Procedure Name Priority Date/Time Associated Diagnosis Comments CT HEAD WO CONTRAST Routine 12/28/2024 9 :27 PM EDT MAGNESIUM Routine 12/28/2024 8:21 PM EDT COMPREHENSIVE METABOLIC PANEL Routine 12/28/2024 8:21 PM EDT PROTHROMBIN TIME-INR Routine 12/28/2024 8:21 PM EDT CBC WITH AUTO DIFFERENTIAL Routine 12/28/2024 8:21 PM EDT SARS COV2/INFLUENZA A/B AND RSV RNA QL NAAT Routine 12/28/2024 8:21 PM EDT from Last 3 Months Results * CT Head w/o Contrast (12/28/2024 9:27 PM EDT) Anatomical Region Laterality Modality Head, Neck Computed Tomogra phy 12/28/2024 9:27 PM EDT Narrative 12/28/2024 9:29 PM EDT ? [facility] ?[address] ?[place] [address] ? CT Scan Report ? Signed ? Patient: Curro,Maria Ines ?MR#: [id number] ?? 59 ? : 1955 ?Acct:[id number] ? Age/Sex: 69 / F ?ADM Date: 03/15/25 ? Loc: HO.ED ? Attending Dr: ? Ordering Physician: Ofelia Elliott ?? Date of Service: 12/28/24 ?? Procedure(s): CT head/brain wo IV con ?? Accession Number(s): [id number] ? cc: Laura Chapa MD; Ofelia Elliott ? Report Number: ?? [id number]: Total DLP = ??541.00 mGy-cm ? CLINICAL HISTORY: intermittent headaches, spasms ? CT head without contrast ? COMPARISON: CT/IN/SR - CT HEAD/BRAIN WO IV CON - 12/16/24 12:07 EST ? FINDINGS: ? Global cerebral volume loss and chronic microvascular ischemic changes. ?? No acute intracranial hemorrhage, extra-axial fluid collection, mass ?? effect, or midline shift. ?? Ventricular system and basilar cisterns are patent. ?? Doty-white matter differentiation is maintained. ?? No gross orbital abnormality. ?? No suspicious or acute bone lesion. ?? Mastoid air cells and paranasal sinuses are predominantly clear. ? IMPRESSION: ?? 1. No acute intracranial abnormality. ?? 2. Global cerebral volume loss and chronic microvascular ischemic changes. ? This document has been electronically signed by: Marco A Connors MD on ?? 12/28/2024 21:27:17 ? Dictated By: ?Marco A Connors MD ? Signed By: ?<Electronically signed by Marco A Connors MD in OV> ? 12/28/242127 ? DD/ 26 ? TD/TT: 12/28/242126 ? Rubber Press Operator: ? Procedure Note Donpaulino, Image - 12/28/[address] [place] [address] [address] Scan Report Signed Patient: Maria Ines ChanMR#: [id number] 59 : 1955cct:[id number] Age/Sex: 69 / FADM Date: 12/28/24 Loc: HO.ED Attending Dr: Ordering Physician: Ofelia Elliott Date of Service: 12/28/24 Procedure(s): CT head/brain wo IV con Accession Number(s): [id number] cc: Laura Chapa MD; Ofelia Elliott Report Number: [id number]: Total DLP = 541.00 mGy-cm CLINICAL HISTORY: intermittent headaches, spasms CT head without contrast COMPARISON: CT/IN/SR - CT HEAD/BRAIN WO IV CON - 12/16/24 12:07 EST FINDINGS: Global cerebral volume loss and chronic microvascular ischemic changes. No acute intracranial hemorrhage, extra-axial fluid collection, mass effect, or midline shift. Ventricular system and basilar cisterns are patent. Doty-white matter differentiation is maintained. No gross orbital abnormality. No suspicious or acute bone lesion. Mastoid air cells and paranasal sinuses are predominantly clear. IMPRESSION: 1. No acute intracranial abnormality. 2. Global cerebral volume loss and chronic microvascular ischemic changes. This document has been electronically signed by: Marco A Connors MD on 12/28/2024 21:27:17 Dictated By: Marco A Connors MD Signed By: <Electronically signed by Marco A Connors MD in OV> 12/28/242127 DD/ 26 TD/TT: 12/28/242126 Rubber Press Operator: [facility] External Provider IMG CT PROCEDURES Final Result * SARS-CoV-2 RNA, Influenza A/B, and RSV RNA, Ql NAAT (12/28/2024 8:21 PM EDT) Influenza A PCR NEGATIVE Negative [facility] Influenza B PCR NEGATIVE Negative [facility] Resp Syncy Virus RNA Qual PCR NEGATIVE Negative [facility] SARS COV2 PCR NEGATIVE Negative [facility] Comment:All test results mus t be correlated with clinical findings.Negative results do not preclude SARS-CoV2, influenza Avirus, influenza B virus and/or RSV infectionand should not be used as the sole basis for treatment orother patient management decisions. Negative results must becombined with clinical observations, patient history, andepidemiological information.This test has not been evaluated for monitoring treatment ofinfection.This test has been authorized by the FDA under an EmergencyUse Authorization (EUA) for use by authorized laboratories.Testing performed on the [employer] GeneXpert utilizingreal-time RT-PCR.All SARS CoV2 and positive influenza A/B results arereported to [facility]. 12/28/2024 8:21 PM EDT 12/28/2024 8:29 PM EDT us Generic External Data Provider LAB MICROBIOLOGY - GENERAL ORDERABLES Final Result [facility] [address] [place] [address] [phone] * (ABNORMAL) CBC auto differential (12/28/2024 8:21 PM EDT) White Blood Count 7.5 4.8 - 10.8 X10*3/uL [facility] Red Blood Count 3.63(L) 4.20 - 5.50 X10*6/uL [facility] Hemoglobin 11.4(L) 12.0 - 16.0 g/dl [facility] Hematocrit 32.4(L) 37.0 - 47.0 % [facility] Mean Corpuscular Volume 89.3 80.0 - 98.0 fL [facility] Mean Corpuscular Hemoglobin 31.4 27.0 - 33.0 pg [facility] Mean Corpuscular HGB Conc 35.2(H) 31.0 - 35.0 g/dl [facility] Red Cell Distribution Width 12.9 11.0 - 16.0 % [facility] Platelet Count 216 160 - 400 X10*3/uL [facility] Mean Platelet Volume 10.3 9.4 - 12.3 fL [facility] Neutrophils Percent Auto 56.3 45 - 73 % [facility] Imm Gran Pct Auto 0.5(H) 0.0 - 0.4 % [facility] Lymphocytes Percent Auto 32.4 20 - 40 % [facility] Monocytes Percent Auto 8.9 2 - 11 % [facility] Eosinophils Percent Auto 1.2 0 - 4 % [facility] Basophils Percent Auto 0.7 0 - 2 % [facility] NRBC Pct Auto 0.0 0.0 - 0.2 /100WBC [facility] Neutrophils Absolute Auto 4.2 2.0 - 8.3 x10*3/uL [facility] Imm Gran Abs Auto 0.04(H) 0.00 - 0.03 X10*3/uL [facility] Lymphocytes Absolute Auto 2.4 1.2 - 4.9 X10*3/uL [facility] Monocytes Absolute Auto 0.7 0.1 - 1.2 X10*3/uL [facility] Eosinophils Absolute Auto 0.1 0.0 - 0.4 X10*3/uL [facility] Basophils Absolute Auto 0.1 0.0 - 0.2 X10*3/uL [facility] NRBC Abs Auto 0.000 0.0 - 0.012 X10*3/uL [facility] 12/28/2024 8:21 PM EDT 12/28/2024 8:29 PM EDT Generic External Data Provider LAB BLOOD ORDERAB LES Final Result Performing Organization Address [facility] de Phone Number [facility] [address] [place] [phone] * (ABNORMAL) Prothrombin Time-INR (12/28/2024 8:21 PM EDT) Prothrombin Time 10.5(L) 10.9 - 12.4 SEC [facility] INTERNATIONAL NORM RATIO 0.9 0.9 - 1.1 [facility] Comment:INTERNATIONAL NORMAL IZED RATIO (INR) REFERENCE RANGES Reference RangeFor patients not on anticoagulant therapy: 0.9 - 1.1INR ranges for oral anticoagulanttherapy:For prevention and treatment of venous thrombosis and pulmonary embolism: 2.0 - 3.0For acute myocardial infarction with aspirin therapy: 2.0 - 3.0For acute myocardial infarction without aspirin therapy: 3.0 - 4.0For patients with mechanical prosthetic heart valves: 2.5 - 3.5 12/28/2024 8:21 PM EDT 12/28/2024 8:29 PM EDT Generic External Data Provider LAB BLOOD ORDERAB LES Final Result Performing Organization Address [facility]/State/ZIP Co de Phone Number [facility] [address] [place] [address] [phone] * Magnesium (12/28/2024 8:21 PM EDT) Magnesium 2.1 1.6 - 2.6 mg/dL [facility] 12/28/2024 8:21 PM EDT 12/28/2024 8:29 PM EDT us Generic External Data Provider LAB BLOOD ORDERAB LES Final Result [facility] [address] [place] [address] [phone] * (ABNORMAL) Comprehensive Metabolic Panel (12/28/2024 8:21 PM EDT) Pathologist [facility] Sodium 145 135 - 145 mmol/L [facility] Potassium 3.9 3.3 - 5.1 mmol/L [facility] Chloride 106 96 - 108 mmol/L [facility] Carbon Dioxide 28 22 - 29 mmol/L [facility] Anion Gap 15 12 - 20 [facility] Urea Nitrogen (BUN) 31(H) 9 - 16 mg/dL [facility] Creatinine, Serum 1.37 0.5 - 1.4 mg/dL [facility] Creatinine Clr Calc Pharmacy 38.2 [facility] Comment:Provided height and weight: 170.18 cm,68.039 kg.eGFR (calculated from the MDRD study equation) and eCrCl(calculated from the Cockcroft-Gault equation) are based ondifferent parameters and may not yield comparable results.If eCrCl result is absurd, please check patient'sheight/weight. Estimated Glomerular Filt Rate 38 [facility] Comment:Chronic Kidney Disea se: Estimated GFR < 60 mL/min/1.73e1Thyqub Kidney Disease: Estimated GFR < 15 mL/min/1.73m2 Glucose 140(H) 60 - 115 mg/dL [facility] Calcium 9.8 8.4 - 10.2 mg/dL [facility] Bilirubin, Total 0.2 0.0 - 1.0 mg/dL [facility] Aspartate Amino Transferase 25 5 - 31 U/L [facility] Alanine Aminotransferase 31 0 - 31 U/L [facility] Total Protein 7.3 6.5 - 8.0 g/dL [facility] Albumin Level 4.3 3.5 - 5.0 g/dL [facility] Alkaline Phosphatase 61 39 - 117 U/L [facility] 12/28/2024 8:21 PM EDT 12/28/2024 8:29 PM EDT us Generic External Data Provider LAB BLOOD ORDERAB LES Final Result Performing Organization Address City/State/[facility] Co de Phone Number [facility] [address] [place] [address] [phone] from Last 3 Mon[address] Insurance [place] [address] [address] [place] [id number] [facility] STANDARD Care Teams Digital Pre Press Operator Relationship Specialty Start Date End Date Laura Chapa MD [address] [place] [address] PCP - General Family Medicine 10/16/18
--- OUTSIDE RECORDS SUMMARY | 2025-01-15 10:23 | XMS_ITS | Encounter Summary ---
Author Organization [employer] [facility] Address [address] [place] [address] [address] [place] [address] Care Team Providers Care Product Marketing Specialist Name Role Phone Laura Chapa MD Primary Care Provider [phone] Reason for Visit * Reason Comments Med Refill Encounter Details Date Type Department Care Team ([facility] Contact Info) Description 12/08/2023 Refill [facility] [address] [place] [address] Laura Chapa MD [address] [place], [place] [phone] Social History Tobacco Use Types Packs/Day Years [...] Upcoming Encounters Date Type Department Care Team ([facility] Contact Info) Description 03/13/2025 11:00 AM EDT Office Visit [facility] [address] [place] [address] Laura Chapa MD [address] [place] [address] documented as of this encounter Visit Diagnoses Not on filedocumented in this encounter Additional Health Concerns Assessment Noted Time PHQ-9 Depression Total Score: 9 11/22/19 24 2:46 PM EST documented as of this encounter Care Teams Product Marketing Specialist Relationship Specialty Start Date End Date Laura Chapa MD [address] [place] [address] PCP - General Family Medicine 10/16/18 documented as of this encounter
--- OUTSIDE RECORDS SUMMARY | 2025-01-15 10:23 | XMS_ITS | Encounter Summary ---
Author Organization [employer] [facility] Address [address] [place] [address] [address] [place] [address] Care Team Providers Care Broker Name Role Phone Laura Chapa MD Primary Care Provider [phone] Reason for Visit * Reason Comments Med Refill Encounter Details Date Type Department Care Team ([facility] Contact Info) Description 02/14/2024 Refill [facility] P[facility] [address] [place] [address] Laura Chapa MD [address] [place], [place] [phone] Social History Tobacco Use Types Packs/Day Years [...] Upcoming Encounters Date Type Department Care Team ([facility] Contact Info) Description 03/13/2025 11:00 AM EDT Office Visit [facility] MED [facility] PEDS [address] [place] [address] Laura Chapa MD [address] [place], [place] [phone] documented as of this encounter Visit Diagnoses Not on filedocumented in this encounter Additional Health Concerns Assessment Noted Time PHQ-9 Depression Total Score: 9 11/22/19 24 2:46 PM EST documented as of this encounter Care Teams Broker Relationship Specialty Start Date End Date Laura Chapa MD [address] [place] [address] PCP - General Family Medicine 10/16/18 documented as of this encounter
--- OUTSIDE RECORDS SUMMARY | 2025-01-15 10:23 | XMS_ITS | Encounter Summary ---
Author Organization [facility] [employer] [facility] Address [address] [place] [address] [address] [place] [address] Care Team Providers Care Jigsaw Operator Name Role Phone Laura Chapa MD Primary Care Provider [phone] Encounter Details Date Type Department Care Team ([facility] Contact Info) Description 11/02/2023 Orders Only [facility] [address] [place] [address] Laura Chapa MD [address] [place], [place] [phone] Social History Tobacco Use Types Packs/Day Years [...] Upcoming Encounters Date Type Department Care Team ([facility] Contact Info) Description 03/13/2025 11:00 AM EDT Office Visit [facility] [address] [place] [address] Laura Chapa MD [address] [place] [address] documented as of this encounter Visit Diagnoses Not on filedocumented in this encounter Additional Health Concerns Assessment Noted Time PHQ-9 Depression Total Score: 7 10/23/19 24 9:25 AM EST documented as of this encounter Care Teams Jigsaw Operator Relationship Specialty Start Date End Date Laura Chapa MD [address] [place] [address] PCP - General Family Medicine 10/16/18 documented as of this encounter
--- OUTSIDE RECORDS SUMMARY | 2025-01-15 10:23 | XMS_ITS | Encounter Summary ---
Author Organization [facility] [employer] [facility] Address [address] [place] [address] [address] [place] [address] Care Team Providers Care Hand Woodworking Sander Name Role Phone Laura Chapa MD Primary Care Provider [phone] Encounter Details Date Type Department Care Team ([facility] Contact Info) Description 08/10/2023 Orders Only [facility] P[facility]S [address] [place], [place] [phone] Laura Chapa MD [address] [place], [place] [phone] Renal insufficiency (Primary Dx) Social History Tobacco [...] Upcoming Encounters Date Type Department Care Team ([facility] Contact Info) Description 03/13/2025 11:00 AM EDT Office Visit [facility] [address] [place], [place] [phone] Laura Chapa MD [address] [place], [place] [phone] documented as of this encounter Visit Diagnoses Diagnosis Renal insufficiency- Primary Unspecified disorder of kidney and ureter documented in this encounter Additional Health Concerns Assessment Noted Time PHQ-9 Depression Total Score: 7 08/09/20 23 11:34 AM EDT documented as of this encounter Care Teams Hand Woodworking Sander Relationship Specialty Start Date End Date Laura Chapa MD [address] [place] [address] PCP - General Family Medicine 10/16/18 documented as of this encounter
[2025-01-15 14:55] LABS: TSH reflex Free T4 2.05 uIU/mL (0.32-4.0)
== END 2025-01-15 09:21 | disposition home or self-care (01) ==
LOC: HO.CHCLDS 09:20
PROVIDERS: Visit Provider Pediatrics
DX: E03.9 Hypothyroidism, unspecified (principal)
CPT/HCPCS: 36415; 84443

== ENCOUNTER 2025-02-21 13:04 | Emergency (ER) | payer MEDICARE, MEDICAID, SELFPAY ==
[2025-02-21 13:13] VITALS: BP 138/78; PULSE 77; O2SAT 99
[2025-02-21 13:29] VITALS: BMI 18.3
--- NOTE | 2025-02-21 13:36 | ED.PSYCH ---
HPI - Psych General Chief Complaint: Psychiatric Symptoms Stated Complaint: CRISIS,ABD AND LEG PAIN PER EMS Time Seen by Provider: 02/21/25 13:34 Source: patient Mode of arrival: EMS Limitations: no limitations History of Present Illness ED Provider: Dr. Mando Kevin HPI Narrative: 69-year-old female with a history ofanxiety, bipolar, arthritis, asthma, hypothyroidism presents with for evaluation of suicidal ideation without a plan. The patient states that she was going through an infection process by her landlord and that her [address] date is 03/07/2025 which is the 34th anniversary of the patient's mother's suicide. The patient states that ?I want to ?. She does not have a plan. Patient states that she is severely depressed and came to the emergency department to try to get some help with her suicidal thoughts and depression. The patient was admitted to [facility] psychiatric service from 12/15/2024 until 12/25/2024 with discharge diagnoses of acute bipolar disorder with depression and acute cognitive impairment. Related Data Home Medications ?Medication ?Instructions ?Recorded ?Confirmed lidocaine 5 % topical patch 1 patch topical DAILY PRN Pain 02/21/25 02/21/25 oxcarbazepine 150 mg tablet 150 mg PO BID 02/21/25 02/22/25 acetaminophen 650 mg 650 mg PO Q8H PRN Pain 02/22/25 02/22/25 tablet,extended release brexpiprazole 1 mg tablet (Rexulti) 1 mg PO BEDTIME 02/22/25 02/22/25 levothyroxine 50 mcg tablet 50 mcg PO DAILY@0600 02/22/25 02/22/25 multivitamin 1 tab PO DAILY 02/22/25 02/22/25 omega-3 fatty acids 500 mg capsule 500 mg PO DAILY 02/22/25 02/22/25 Previous Rx's ?Medication ?Instructions ?Recorded albuterol sulfate 90 mcg/actuation 1 inh inhalation QID PRN 12/25/24 aerosol inhaler wheezing/SOB #6.7 grams mirtazapine 15 mg tablet 15 mg PO BEDTIME #30 tabs 12/25/24 levofloxacin 500 mg tablet 500 mg PO DAILY 2 days #2 tabs 02/26/25 Allergies Allergy/AdvReac Type Severity Reaction Status Date / Time penicillin V Allergy Unknown Unknown Verified 02/21/25 13:30 Review of Systems Review of Systems: Yes all other systems are reviewed and are negative [facility] Past Medical History Medical History Asthma Hypothyroid Bipolar disorder Osteoarthritis of right hip Social History Social History Household Members: Significant Other Housing: Apartment Unable to assess alcohol history related to: Unknown Alcohol intake: former Patient Tobacco Use Status: Tobacco use Unknown Smoked in Last 30 Days: No Use of substances other than those prescribed or required for medical reasons: No Advance Directives: No Advance Directives Information Provided: Yes Do you have a plan to hurt others: No Plan service: No Current occupational status: retired Sexual orientation: Straight/Heterosexual Physical Exam Vital Signs: Vital Signs: Last Vital Signs Temp 98.2 F 02/26/25 14:28 Pulse 79 02/26/25 14:28 Resp 16 02/26/25 14:28 BP 112/64 02/26/25 14:28 Pulse Ox 96 02/26/25 14:28 O2 Del Method Room Air 02/26/25 14:28 BMI result Body Mass Index 18.3 Vital signs were normal Exam: General: Awake, alert in no distress Head: Normocephalic, atraumatic EENT: PERRL, Lids normal, sclera normal, conjunctiva normal, nose normal , ears normal, throat without erythema or exudates Neck: Supple, no adenopathy Lung: breath sounds symmetric, no wheezing, rales or rhonchi Chest: symmetric movement, nontender Heart: regular rate and rhythm, normal S1, S2 no murmurs or rubs Abdomen: soft, non-tender, nondistended, normal bowel sounds Back: no vertebral tenderness, no CVAT Extremities: no deformities, moves all extremities symmetrically Neuro: Awake, alert, oriented, normal speech, cranial nerves intact, moves all extremities symmetrically Psych: Pleasant, cooperative Course Reevaluation(s) Reevaluation #1: 0715 February 22, 2025 Enrike Odom acute overnight events reported to me VS Stable Patient in physician observation for psychiatric evaluation.??No acute events reported overnight. No current complaints. VS stable.??Patient is in bed search status/pending CARE team evaluation. Will continue to monitor. __ 1500: I was notified by behavioral health pod nurse that the patient was cleared by care team and [facility]. Sumit Duque MD Reevaluation #2: Time: 08:09 Date: 02/23/25 Provider: Irasema Desai DO Patient in physician observation for case management needs, cleared by psychiatry.. No acute events reported overnight.? No current issues or complaints. VS stable. Patient is pending PT/CM eval. Will continue to monitor. Reevaluation #3: Time: 11:26 Date: 02/24/25 Provider: TYRONE Domingo Patient in physician observation for case management needs. No acute events reported overnight.? No current issues or complaints. VS stable. She is on ceftin for UTI, urine culture with GNR. Patient is pending placement at facility - PT saw her and is recommending short term rehab. will f/u with case management. will continue to monitor Additional Reevaluation(s): Time: 09:41 Date: 02/25/25 Provider: TYRONE Domingo Patient in physician observation for case management needs. No acute events reported overnight.? No current issues or complaints. VS stable. urine culture positive for pseudomonas, deleon-sensitive. ceftin is not adequate treatment. will stop ceftin and change to levofloxacin for treatment. Patient is pending placement at facility for short term rehab. Will continue to monitor. Time: 10:18 Date: 02/26/25 Provider: TYRONE Michael Patient in physician observation for case management needs. No acute events reported overnight.? No current issues or complaints. VS stable. Patient is pending placement at [facility]. Will continue to monitor. Time: : Date: 02/26/25 Provider: TYRONE Michael Physician observation ended at 1425. Patient will be discharged to [facility] via BLS Medications Administered Discontinued Medications Generic Name Dose Route Start Last Admin Trade Name Freq PRN Reason Stop Dose Admin Acetaminophen 650 mg 02/21/25 15:21 02/21/25 15:30 Acetaminophen 325 Mg Tablet PO 02/21/25 15:22 650 mg ONCE ONE Administration Acetaminophen 650 mg 02/22/25 17:37 02/26/25 01:27 Acetaminophen 325 Mg Tablet PO 650 mg Q8H PRN Administration Pain Brexpiprazole 1 mg 02/22/25 21:00 02/25/25 21:17 Brexpiprazole 1 Mg Tablet PO 1 mg BEDTIME KIRSTIE Administration Calcium Carbonate 750 mg 02/25/25 08:51 02/25/25 09:14 Calcium Carbonate 750 Mg Tab.Chew PO 750 mg Q6H PRN Administration indigestion Cefuroxime Axetil 250 mg 02/21/25 18:15 02/25/25 06:03 Cefuroxime Axetil 250 Mg Tablet PO 02/26/25 18:14 250 mg Q12H KIRSTIE Administration Famotidine 20 mg 02/25/25 08:51 02/25/25 09:14 Famotidine 20 Mg Tablet PO 02/25/25 08:52 20 mg ONCE ONE Administration Levofloxacin 500 mg 02/25/25 09:35 02/26/25 08:24 Levofloxacin 500 Mg Tablet PO 500 mg DAILY KIRSTIE Administration Levothyroxine Sodium 50 mcg 02/23/25 06:00 02/26/25 08:25 Levothyroxine Sodium 50 Mcg Tablet PO 50 mcg DAILY@0600 KIRSTIE Administration Lidocaine 1 patch 02/22/25 17:36 02/23/25 20:57 Lidocaine 4 % Patch Adh..Patch TRANSDERMA 1 patch DAILY PRN Administration Pain Mirtazapine 15 mg 02/22/25 21:00 02/25/25 21:17 Mirtazapine 15 Mg Tablet PO 15 mg BEDTIME KIRSTIE Administration Multivitamins/Vitamin C 1 tab 02/23/25 09:00 02/26/25 08:25 Multivitamin Tablet PO 1 tab DAILY KIRSTIE Administration Oxcarbazepine 150 mg 02/22/25 21:00 02/26/25 08:24 Oxcarbazepine 150 Mg Tablet PO 150 mg BID KIRSTIE Administration Tramadol HCl 50 mg 02/22/25 06:16 02/22/25 06:33 Tramadol Hcl 50 Mg Tablet PO 02/22/25 06:17 50 mg ONCE ONE Administration Medical Decision Making Medical Decision Making MDM Narrative: 69-year-old female with a history ofanxiety, bipolar, arthritis, asthma, hypothyroidism presents with for evaluation of suicidal ideation without a plan. The patient states that she was going through an infection process by her landlord and that her [address] date is 03/07/2025 which is the 34th anniversary of the patient's mother's suicide. The patient states that ?I want to ?. She does not have a plan. Patient states that she is severely depressed and came to the emergency department to try to get some help with her suicidal thoughts and depression.The patient was admitted to [facility] psychiatric service from 12/15/2024 until 12/25/2024 with discharge diagnoses of acute bipolar disorder with depression and acute cognitive impairment. Physical examination was unremarkable Differential diagnosis: ?Includes but is not limited to depression, anxiety, suicidal ideation, anemia, electrolyte abnormalities Course: 18:10 Start physician observation My interpretation patient's laboratory evaluation as follows: WBC was normal 5800. Normocytic anemia with an H&H of 12.3 and 35.4. Elevated BUN 24 with a normal creatinine of 1.16. LFTs were normal. Urinalysis was positive for leukocyte esterase. Microscopic revealed 0-2 RBCs, 25-50 WBCs, 0-2 squamous cells, trace bacteria. Drug screen urine was negative. Ethanol was below detectable limits. COVID-19, influenza and RSV were negative. Patient has no dysuria but she has urinating frequently therefore I will start her on cefuroxime 250 mg b.i.d. for 5 days for possible UTI. The patient is medically cleared for care team evaluation. Patient will be kept in the emergency department Behavioral Health Unit until disposition can be determined. 21:32 Continue physician observation Patient was seen by the care team who felt that the patient had increased anxiety and depression due to recent life stressors. The patient was unable to maintain ADLs and up keep her her home on her own. Care team felt that the patient did not require psychiatric hospitalization but would benefit from case management evaluation. Therefore I ordered a case management consult and physical therapy consult. At the end of my shift, patient's care was turned over to my colleague, Dr. Emerson Zhang.Patient will remain in the emergency department Behavioral Health Unit until disposition can be determined or until patient's symptoms improve over time. Admission/Observation Consideration of admission/observation: Escalation of care including admission/observation considered (Yes) Lab Data MDM Lab Attestation statement: I reviewed the patient's lab results. 02/21/25 14:08 02/21/25 14:08 Labs: Lab Results 02/21/25 02/22/25 Range/Units 14:08 15:11 WBC 5.8 (4.8-10.8) X10*3/uL RBC 3.94 L (4.20-5.50) X10*6/uL Hgb 12.3 (12.0-16.0) g/dl Hct 35.4 L (37.0-47.0) % MCV 89.8 (80.0-98.0) fL MCH 31.2 (27.0-33.0) pg MCHC 34.7 (31.0-35.0) g/dl RDW 12.7 (11.0-16.0) % Plt Count 193 (160-400) X10*3/uL MPV 10.1 (9.4-12.3) fL Immature Gran % (Auto) 0.3 (0.0-0.4) % Neut % (Auto) 58.9 (45-73) % Lymph % (Auto) 29.6 (20-40) % [place] % (Auto) 9.5 (2-11) % Eos % (Auto) 1.0 (0-4) % Baso % (Auto) 0.7 (0-2) % Lymph # (Auto) 1.7 (1.2-4.9) X10*3/uL [place] # (Auto) 0.6 (0.1-1.2) X10*3/uL Eos # (Auto) 0.1 (0.0-0.4) X10*3/uL Baso # (Auto) 0.0 (0.0-0.2) X10*3/uL Abs Immat Gran (auto) 0.02 (0.00-0.03) X10*3/uL Absolute Neuts (auto) 3.4 (2.0-8.3) x10*3/uL Absolute Nucleated RBC 0.000 (0.0-0.012) X10*3/uL Nucleated RBC % (auto) 0.0 (0.0-0.2) /100WBC Sodium 139 (135-145) mmol/L Potassium 3.9 (3.3-5.1) mmol/L Chloride 105 (96-108) mmol/L Carbon Dioxide 29 (22-29) mmol/L Anion Gap 9 L (12-20) BUN 24 H (9-16) mg/dL Creatinine 1.16 (0.5-1.4) mg/dL Estim Creat Clear Calc 33.2 Estimated GFR 46 Random Glucose 92 (60-115) mg/dL Calcium 9.8 (8.4-10.2) mg/dL Total Bilirubin 0.3 (0.0-1.0) mg/dL AST 21 (5-31) U/L ALT 20 (0-31) U/L Alkaline Phosphatase 55 (39-117) U/L Total Protein 6.8 (6.5-8.0) g/dL Albumin 4.4 (3.5-5.0) g/dL Urine Color Yellow Urine Appearance Clear Urine pH 6.5 (5.0-9.0) Ur Specific [place] 1.010 (1.005-1.025) Urine Protein Negative (Neg-Trace) mg/dL Urine Glucose (UA) Negative (Negative) mg/dL Urine Ketones Negative (Negative) mg/dL Urine Blood Negative (Negative) Urine Nitrite Negative (Negative) Ur Leukocyte Esterase Large (3+) H (Negative) Urine RBC 0-2 (0-2) /HPF Urine WBC 21-50 H (0-5) /HPF Ur Squamous Epith Cells 0-2 (0-2) /HPF Urine Bacteria Trace (None Seen) Hyaline Casts 0-2 (0-2) /LPF Urine Opiates Screen Not Detected (Not Detect) Ur Buprenorphine Scrn Not Detected (Not Detect) ng/mL Ur Oxycodone Screen Not Detected (Not Detect) ng/mL Urine Methadone Screen Not Detected (Not Detect) ng/mL Urine Fentanyl Screen Not Detected (Not Detect) Ur Barbiturates Screen Not Detected (Not Detect) Ur Phencyclidine Scrn Not Detected (Not Detect) Ur Amphetamines Screen Not Detected (Not Detect) U Benzodiazepines Scrn Not Detected (Not Detect) Urine Cocaine Screen Not Detected (Not Detect) U Marijuana (THC) Screen Not Detected (Not Detect) Ethyl Alcohol < 10 mg/dL Influenza Type A (PCR) NEGATIVE (Negative) Influenza Type B (PCR) NEGATIVE (Negative) RSV RNA Qual (PCR) NEGATIVE (Negative) SARS-CoV-2 RNA (RT-PCR) NEGATIVE (Negative) Independent Historian Clinical information obtained from an independent historian. History obtained from or confirmed by: Other (Friend) Discharge Plan Discharge Clinical Impression: Depression, Suicidal ideation, Acute UTI Patient Disposition: Xfer [facility] Transfer Details: [facility] Instructions: Urinary Tract Infection in Women (DC) Additional Instructions: Your urine analysis was concerning for urinary tract infection Levaquin as an antibiotic continue to take as prescribed for the next 2 days Prescriptions: New levofloxacin 500 mg tablet 500 mg PO DAILY 2 Days Qty: 2 0RF No Action oxcarbazepine 150 mg tablet 150 mg PO BID lidocaine 5 % adhesive patch,medicated 1 patch topical DAILY PRN (Reason: Pain) multivitamin Tablet 1 tab PO DAILY acetaminophen 650 mg Tablet Extended Release 650 mg PO Q8H PRN (Reason: Pain) Fish Oil 500 mg Capsule 500 mg PO DAILY Rexulti 1 mg tablet 1 mg PO BEDTIME levothyroxine 50 mcg tablet 50 mcg PO DAILY@0600 mirtazapine 15 mg Tablet 15 mg PO BEDTIME Qty: 30 0RF albuterol sulfate 90 mcg/actuation HFA aerosol inhaler 1 inh inhalation QID PRN (Reason: wheezing/SOB) Qty: 6.7 0RF Referrals: [facility] [Other] [facility] [Other] Interventions: Noble-Suicide Risk Severity Scale Last Done: 02/25/25 15:00 ED Discharge Assessment Last Done: 02/26/25 14:28 Discharge Date/Time: 02/26/25 14:30 Print Language: Unable To Collect
[2025-02-21 13:41] VITALS: BP 119/65; PULSE 65; RESP 14; TEMP 36.9; O2SAT 99
--- OUTSIDE RECORDS SUMMARY | 2025-02-21 14:03 | XMS_ITS | Encounter Summary ---
Author Organization [employer] Address [address] [place] [address] [address] [place] [address] Care Team Providers Care Sound Technician Name Role Phone Laura Chapa MD Primary Care Provider [phone] Reason for Visit * Reason Comments Med Refill Encounter Details Date Type Department Care Team ([facility] Contact Info) Description 02/14/2024 Refill [facility]EDS [address] [place] [address] Laura Chapa MD [address], [place] [phone] Social History Tobacco Use Types Packs/Day Years [...] Upcoming Encounters Date Type Department Care Team ([facility] Contact Info) Description 03/13/2025 11:00 AM EDT Office Visit [facility] PEDS [address] [place], [place] [phone] Laura Chapa MD [address], [place] [phone] documented as of this encounter Visit Diagnoses Not on filedocumented in this encounter Additional Health Concerns Assessment Noted Time PHQ-9 Depression Total Score: 9 11/22/19 24 2:46 PM EST documented as of this encounter Care Teams Sound Technician Relationship Specialty Start Date End Date Laura Chapa MD [address] [place] [address] PCP - General Family Medicine 10/16/18 documented as of this encounter
--- OUTSIDE RECORDS SUMMARY | 2025-02-21 14:03 | XMS_ITS | Encounter Summary ---
Author Organization [employer] Address [address] [place] [address] Care Team Providers Care Cushion Padder Name Role Phone Laura Chapa MD Primary Care Provider [phone] Reason for Visit * Reason Onset Date Comments Call Back Request 08/28/2023 Encounter Details Date Type Department Care Team ([facility] st Contact Info) Description 08/28/2023 Telephone [facility] MED[facility]INE [address] [place] [address] Laura Chapa MD [address] [place], [place] [phone] Call Back Request Social History Tobacco Use [...] Description 03/13/2025 11:00 AM EDT Office Visit [facility] MED & PEDS [address] [place] [address] Laura Chapa MD [address] [place] [address] documented as of this encounter Visit Diagnoses Not on filedocumented in this encounter Additional Health Concerns Assessment Noted Time PHQ-9 Depression Total Score: 7 08/09/20 23 11:34 AM EDT documented as of this encounter Care Teams Cushion Padder Relationship Specialty Start Date End Date Luara Chapa MD [address] [place] [address] PCP - General Family Medicine 10/16/18 documented as of this encounter
--- OUTSIDE RECORDS SUMMARY | 2025-02-21 14:03 | XMS_ITS | Encounter Summary ---
Author Organization [employer] Address [address] [place] [address] [address] [place] [address] Care Team Providers Care Egg Gatherer Name Role Phone Laura Chapa MD Primary Care Provider [phone] Encounter Details Date Type Department Care Team ([facility] Contact Info) Description 11/02/2023 Orders Only [facility] MED & PEDS [address] [place], [place] [phone] Laura Chapa MD [address] [place], [place] [phone] Social History Tobacco Use Types Packs/Day Years [...] Upcoming Encounters Date Type Department Care Team ([facility] Contact Info) Description 03/13/2025 11:00 AM EDT Office Visit [facility] MED [facility] PEDS [address] [place] [address] Laura Chapa MD [address] [place] [address] documented as of this encounter Visit Diagnoses Not on filedocumented in this encounter Additional Health Concerns Assessment Noted Time PHQ-9 Depression Total Score: 7 10/23/19 24 9:25 AM EST documented as of this encounter Care Teams Egg Gatherer Relationship Specialty Start Date End Date Laura Chapa MD [address] [place] [address] PCP - General Family Medicine 10/16/18 documented as of this encounter
--- OUTSIDE RECORDS SUMMARY | 2025-02-21 14:03 | XMS_ITS | Encounter Summary ---
Author Organization [employer] Address [address] [facility] [address] [place] [address] Care Team Providers Care Assembler Metal Building Name Role Phone Laura Chapa MD Primary Care Provider [phone] Reason for Visit * Reason Onset Date Comments call back needed 02/19/2025 Encounter Details Date Type Department Care Team ([facility] st Contact Info) Description 02/19/2025 Telephone [facility] MEDICINE [address] [place] [address] Laura Chapa MD [address] [place], [place] [phone] call back needed Social History Tobacco Use Types Packs/Day Years [...] encounter Miscellaneous Notes * Telephone Encounter - Hai Johnson - 02/19/2025 10:47 AM EDT TC from pt who gave me Verbal consent to speak to her roommate Carl that is requesting assistance from pcp due being in process of eviction . Wanting to know how pcp office can assist documented in this encounter Plan of Treatment Upcoming Encounters Date Type Department Care Team ([facility] Contact Info) Description 03/13/2025 11:00 AM EDT Office Visit [facility] MED & PEDS [address] [place] [address] Laura Chapa MD [address] [place] [address] documented as of this encounter Visit Diagnoses Not on filedocumented in this encounter Additional Health Concerns Assessment Noted Time PHQ-9 Depression Total Score: 9 11/22/19 24 2:46 PM EST documented as of this encounter Care Teams Assembler Metal Building Relationship Specialty Start Date End Date Laura Chapa MD [address] [place] [address] PCP - General Family Medicine 10/16/18 documented as of this encounter
--- OUTSIDE RECORDS SUMMARY | 2025-02-21 14:03 | XMS_ITS | Clinical Summary ---
Author Organization [employer] Address [address] [place] [address] Care Team Providers Care Quality Process Auditor Name Role Phone Laura Chapa MD Primary Care Provider [phone] Allergies Active Allergy Reactions Criticality Noted Date [...] DAY 60 tablet 3 12/07/19 24 Active Rexulti 1 MG tablet Take 0.5 tablets by mouth at bedtime. 12/27/19 25 Active midodrine (Proamatine) 5 MG tablet Take 1 tablet by mouth every 6 (six) hours during the day. 12/26/19 25 Active traMADol (Ultram) 50 MG tablet Take [...] bedtime. 30 tablet 1 01/14/20 25 Active oxybutynin XL (Ditropan-XL) 15 MG 24 hr tabletIndications :Continuous leakage of urine TAKE 1 TABLET BY MOUTH EVERY DAY IN THE MORNING 30 tablet 3 02/06/20 25 Active Spacer/Aero-Holdi ng Chambers (AeroChamber Holding Chamber) deviceIndications :Shortness of breath 1 Device Once per day. 1 each 02/07/20 25 Active levothyroxine (Synthroid, Levoxyl) 50 MCG tabletIndications :Acquired hypothyroidism Take 1 tablet (50 mcg) by mouth Once per day. 30 tablet 02/12/20 25 Active acetaminophen (Tylenol) 325 MG tablet Take 2 tablets (650 mg) by mouth every 6 (six) hours during the day. 30 tablet 02/12/20 25 Active albuterol 108 (90 Base) MCG/ACT inhaler Inhale 1 puff every 6 (six) hours if needed for wheezing. 18 g 1 02/12/20 25 Active oxybutynin XL (Ditropan-XL) 15 MG 24 hr tabletIndications :Continuous leakage of urine TAKE 1 TABLET BY MOUTH EVERY DAY IN THE MORNING 30 tablet 11 10/08/20 24 2024 Discontinued(R eorder (will not trigger notification to Pharmacy)) albuterol 108 (90 Base) MCG/ACT inhaler INHALE 1 PUFF EVERY 6 HOURS IF NEEDED FOR WHEEZING. INHALE 2 PUFFS ROUTE EVERY 4 HOURS 18 g 1 12/18/19 25 2024 Discontinued(R eorder (will not trigger notification to Pharmacy)) levothyroxine (Synthroid, Levoxyl) 50 MCG tabletIndications :Acquired hypothyroidism TAKE 1 TABLET BY MOUTH EVERY DAY 30 tablet 12/27/19 25 2024 Discontinued(R eorder (will not trigger notification to Pharmacy)) acetaminophen (Tylenol) 325 MG tablet Take 2 tablets by mouth every 6 (six) hours during the day. 12/26/19 25 2024 Discontinued(R eorder (will not trigger notification to Pharmacy)) albuterol 108 (90 Base) MCG/ACT inhaler Inhale 1 puff every 6 (six) hours if needed for wheezing. 18 g 1 01/29/20 25 2024 Discontinued(R eorder (will not trigger notification to Pharmacy)) Spacer/Aero-Holdi ng Chambers (AeroChamber Holding Chamber) deviceIndications :Shortness of breath 1 Device Once per day. 1 each 02/07/20 25 2024 Discontinued(R eorder (will not trigger [...] intervention , Patient to reach out to [facility] team as needed, Comply with medication , Patient to engage in OP therapy , and Patient to reach out to [facility] as needed. Hypothyroidism 03/22/2016 08/09/2023 Osteopenia 06/03/2014 08/09/2023 Encounters Date Type Department Care Team Description 02/19/2025 Telephone [facility] MEDICINE [address] [place] [phone] Laura Chapa MD call back needed 02/11/2025 Refill [facility] MEDICINE [address] [place] [address] Laura Chapa MD Acquired hypothyroidism 02/06/2025 Orders Only [facility] [address] [place] [address] Laura Chapa MD Shortness of breath (Primary Dx) 02/05/2025 Refill [facility] MED[facility] [address] [place] [address] Laura Chapa MD Continuous leakage of urine 02/04/2025 Telephone [facility] MEDICINE [address] [place] [address] Laura Chapa MD Medication Question 01/28/2025 Refill [facility] MED[facility]INE [address] [place] [phone] Laura Chapa MD 01/17/2025 Telephone [facility] [address] [place] [address] Laura Chapa MD Prior Authorization (Lidocaine ) 01/16/2025 Telephone [facility] MEDICINE [address] [place] [phone] Laura Chapa MD Call Back Request 01/09/2025 10:30 AM EDT Office Visit [facility] [address] [place] [address] Laura Chapa MD Protein-calorie malnutrition, unspecified severity (CMS/HCC) (Primary Dx); Bipolar disorder, in partial remission, most recent episode mixed (CMS/HCC); Acquired hypothyroidism; Pain; Foot pain, right 01/09/2025 Travel 12/28/2024 Orders Only GENERIC EXTERNAL DATA DEPARTMENT Provider, Generic External Data 12/27/2024 Population Health Risk Score [facility] (C[facility]) Department [address] [phone] Provider, Population Health Generic 12/25/2024 Refill [facility] [address] [place] [address] Laura Chapa MD Acquired hypothyroidism 12/24/2024 Patient Outreach [facility] [address] [place] [address] Laura Chapa MD Transition Of Care (Tcm) (HDF scheduled) 12/18/2024 Telephone [facility] MEDICINE [address] [place] [address] Laura Chapa MD Call Back Request (/) 12/17/2024 Refill [facility] P[facility]S [address] [place] [address] Alee Colin MD 12/13/2024 Refill [facility] [address] [place], [place] [phone] Laura Chapa MD 11/27/2024 Refill [facility] [address] [place], [place] [phone] Navarro Chris Dickson MD Acquired hypothyroidism 11/27/2024 Refill [facility] [address] [place], [place] [phone] Laura Chapa MD from Last 3 Months [...] Upcoming Encounters Date Type Department Care Team ([facility] st Contact Info) Description 03/13/2025 11:00 AM EDT Office Visit [facility] [address] [place], [place] [phone] Laura Chapa MD [address] [place], [place] [phone] Health Maintenance Due Date Last Done Comments CT Colonography 1956 Colonoscopy 1955 Colorectal Cancer Screening 1956 FIT DNA/Cologuard 1956 FIT 1956 FOBT 1956 SDOH Screening 1956 Sigmoidoscopy 1956 Alcohol/Substance Use Screening 1968 Hepatitis C Screening 1974 Mammogram 1996 Zoster Vaccines (1 of 2) 2006 Pneumococcal Vaccine: 50+ Years (2 of 2 - PCV) 02/28/2014 02/28/2013 COVID-19 Vaccine ( - 2023-2 5 season) 2024 Influenza Vaccine [...] Procedure Name Priority Date/Time Associated Diagnosis Comments TSH W/REFLEX TO FT4 Routine 01/15/2025 9 :22 AM EDT Acquired hypothyroidism CT HEAD WO CONTRAST Routine 12/28/2024 9 :27 PM EDT MAGNESIUM Routine 12/28/2024 8:21 PM EDT COMPREHENSIVE METABOLIC PANEL Routine 12/28/2024 8:21 PM EDT PROTHROMBIN TIME-INR Routine 12/28/2024 8:21 PM EDT CBC WITH AUTO DIFFERENTIAL Routine 12/28/2024 8:21 PM EDT SARS COV2/INFLUENZA A/B AND RSV RNA QL NAAT Routine 12/28/2024 8:21 PM EDT from Last 3 Months Results * TSH W/Reflex to FT4 (01/15/2025 9:22 AM EDT) TSH reflex Free T4 2.05 0.32 - 4.0 uIU/mL [facility] Blood Venous blood specimen / Unknown 01/15/2025 9:22 AM EDT 01/15/2025 2:05 PM EDT us Laura Chapa MD LAB BLOOD ORDERABLES Final Re sult [facility] [address] [place] [phone] * CT Head w/o Contrast (12/28/2024 9:27 PM EDT) Anatomical Region Laterality Modality Head, Neck Computed Tomogra phy 12/28/2024 9:27 PM EDT Narrative 12/28/2024 9:29 PM EDT ? [facility] ?[address] ?[place] [address] ? CT Scan Report ? Signed ? Patient: Curro,Maria Ines ?MR#: [id number] ?? 59 ? : 1955 ?Acct:[id number] ? Age/Sex: 69 / F ?ADM Date: 12/28/24 ? Loc: HO.ED ? Attending Dr: ? Ordering Physician: Ofelia Elliott ?? Date of Service: 12/28/24 ?? Procedure(s): CT head/brain wo IV con ?? Accession Number(s): [id number] ? cc: Laura Chapa MD; Ofelia Elliott ? Report Number: ?? [id number]: Total DLP = ??541.00 mGy-cm ? CLINICAL HISTORY: intermittent headaches, spasms ? CT head without contrast ? COMPARISON: CT/NM/SR - CT HEAD/BRAIN WO IV CON - [...] Marco A Connors MD in OV> ? 12/28/248 ? DD/ 26 ? TD/TT: 12/28/242126 ? Opener: ? Procedure Note Donotuseinterpreter, Image - 12/28/[address] [address] [address] Scan Report Signed Patient: Maria Ines ChanMR#: [id number] [birth year] : 7Acct:[id number] Age/Sex: 69 / FADM Date: 12/28/24 Loc: HO.ED Attending Dr: Ordering Physician: Ofelia Elliott Date of Service: 12/28/24 Procedure(s): CT head/brain wo IV con Accession Number(s): [id number] cc: Laura Chapa MD; Ofelia Elliott Report Number: [id number]: Total DLP = 541.00 mGy-cm CLINICAL HISTORY: intermittent headaches, spasms CT head without contrast COMPARISON: CT/NM/SR - CT HEAD/BRAIN WO IV CON - [...] in OV> 12/28/242127 DD/ 26 TD/TT: 12/28/242126 Opener: [facility] External Provider IMG CT PROCEDURES Final Result * SARS-CoV-2 RNA, Influenza A/B, and RSV RNA, Ql NAAT (12/28/2024 8:21 PM EDT) Influenza A PCR NEGATIVE Negative [facility] Influenza B PCR NEGATIVE Negative [facility] Resp Syncy Virus RNA Qual PCR NEGATIVE Negative [facility] SARS COV2 PCR NEGATIVE Negative [facility] Comment:All test results mus t [...] use by authorized laboratories.Testing performed on the [employer] GeneXpert utilizingreal-time RT-PCR.All SARS CoV2 and positive influenza A/B results arereported to [facility]. 12/28/2024 8:21 PM EDT 12/28/2024 8:29 PM EDT us Generic External Data Provider LAB MICROBIOLOGY - GENERAL ORDERABLES Final Result [facility] [address] [place] [address] [phone] * (ABNORMAL) CBC auto differential (12/28/2024 8:21 PM EDT) White Blood Count 7.5 4.8 - 10.8 X10*3/uL [facility] Red Blood Count 3.63(L) 4.20 - 5.50 X10*6/uL [facility] Hemoglobin 11.4(L) 12.0 - 16.0 g/dl [facility] Hematocrit 32.4(L) 37.0 - 47.0 % [facility] Mean Corpuscular Volume 89.3 80.0 - 98.0 fL [facility] Mean Corpuscular Hemoglobin 31.4 27.0 - 33.0 pg [facility] Mean Corpuscular HGB Conc 35.2(H) 31.0 - 35.0 g/dl [facility] Red Cell Distribution Width 12.9 11.0 - 16.0 % [facility] Platelet Count 216 160 - 400 X10*3/uL [facility] Mean Platelet Volume 10.3 9.4 - 12.3 fL [facility] Neutrophils Percent Auto 56.3 45 - 73 % [facility] Imm Gran Pct Auto 0.5(H) 0.0 - 0.4 % [facility] Lymphocytes Percent Auto 32.4 20 - 40 % [facility] Monocytes Percent Auto 8.9 2 - 11 % [facility] Eosinophils Percent Auto 1.2 0 - 4 % [facility] Basophils Percent Auto 0.7 0 - 2 % [facility] NRBC Pct Auto 0.0 0.0 - 0.2 /100WBC [facility] Neutrophils Absolute Auto 4.2 2.0 - 8.3 x10*3/uL [facility] Imm Gran Abs Auto 0.04(H) 0.00 - 0.03 X10*3/uL [facility] Lymphocytes Absolute Auto 2.4 1.2 - 4.9 X10*3/uL [facility] Monocytes Absolute Auto 0.7 0.1 - 1.2 X10*3/uL [facility] Eosinophils Absolute Auto 0.1 0.0 - 0.4 X10*3/uL [facility] Basophils Absolute Auto 0.1 0.0 - 0.2 X10*3/uL [facility] NRBC Abs Auto 0.000 0.0 - 0.012 X10*3/uL [facility] 12/28/2024 8:21 PM EDT 12/28/2024 8:29 PM EDT us Generic External Data Provider LAB BLOOD ORDERAB LES Final Result [facility] [address] [place] [phone] [phone] * (ABNORMAL) Prothrombin Time-INR (12/28/2024 8:21 PM EDT) Prothrombin Time 10.5(L) 10.9 - 12.4 SEC [facility] INTERNATIONAL NORM RATIO 0.9 0.9 - 1.1 [facility] Comment:INTERNATIONAL NORMAL IZED RATIO (INR) [...] ORDERAB LES Final Result Performing Organization Address [facility] Co de Phone Number [facility] [address] [place] [phone] * Magnesium (12/28/2024 8:21 PM EDT) [facility] Magnesium 2.1 1.6 - 2.6 mg/dL [facility] 12/28/2024 8:21 PM EDT 12/28/2024 8:29 PM EDT [employer] External Data Provider LAB BLOOD ORDERAB LES Final Result Performing Organization Address [facility] de Phone Number [facility] [address] [place] [phone] * (ABNORMAL) Comprehensive Metabolic Panel (12/28/2024 8:21 PM EDT) Pathologist [facility] Sodium 145 135 - 145 mmol/L [facility] Potassium 3.9 3.3 - 5.1 mmol/L [facility] Chloride 106 96 - 108 mmol/L [facility] Carbon Dioxide 28 22 - 29 mmol/L [facility] Anion Gap 15 12 - 20 [facility] Urea Nitrogen (BUN) 31(H) 9 - 16 mg/dL [facility] Creatinine, Serum 1.37 0.5 - 1.4 mg/dL [facility] Creatinine Clr Calc Pharmacy 38.2 [facility] Comment:Provided height and weight: 170.18 cm,68.039 kg.eGFR (calculated from the MDRD study equation) and eCrCl(calculated from the Cockcroft-Gault equation) are based ondifferent parameters and may not yield comparable results.If eCrCl result is absurd, please check patient'sheight/weight. Estimated Glomerular Filt Rate 38 [facility] Comment:Chronic Kidney Disea se: Estimated GFR < 60 mL/min/[id number] Kidney Disease: Estimated GFR < 15 mL/min/1.73m2 Glucose 140(H) 60 - 115 mg/dL [facility] Calcium 9.8 8.4 - 10.2 mg/dL [facility] Bilirubin, Total 0.2 0.0 - 1.0 mg/dL [facility] Aspartate Amino Transferase 25 5 - 31 U/L [facility] Alanine Aminotransferase 31 0 - 31 U/L [facility] Total Protein 7.3 6.5 - 8.0 g/dL [facility] Albumin Level 4.3 3.5 - 5.0 g/dL [facility] Alkaline Phosphatase 61 39 - 117 U/L [facility] 12/28/2024 8:21 PM EDT 12/28/2024 8:29 PM EDT us Generic External Data Provider LAB BLOOD ORDERAB LES Final Result Performing Organization Address City/State/[facility] Co de Phone Number [facility] [address] [place] [phone] [phone] from Last 3 Months Insurance # 2 [place] [address] [facility] * Guarantor: DustinMavisMaria Ines A Account Type Relation to Patient Date of Phone Billing Address Personal/Family Self [address] Care Teams Quality Process Auditor Relationship Specialty Start Date End Date Laura Chapa MD [address] [place] [address] PCP - General Family Medicine 10/16/18
--- OUTSIDE RECORDS SUMMARY | 2025-02-21 14:03 | XMS_ITS | Clinical Summary ---
Author Organization [facility] Address [address] [facility] [address] [place] [address] Phone Care Team Providers Care Photographer Aerial Name Role Phone Laura Chapa MD Primary Care Provider [phone] Allergies Active Allergy Reactions Criticality Noted Date [...] Active Problems Problem Noted Date Diagnosed Date Captree adverse reaction 02/04/2024 Stage 3a chronic kidney [...] Colorectal Cancer Screening: Sigmoidoscopy 2005 Pneumococcal Vaccine: 50+ Years (3 of 3 - PCV) 02/28/2014 02/28/2013, 03/01/2012 Influenza Vaccine (Season Ended) 2025 Hepatitis B Vaccine Aged Out No longe r eligible based on patient's age to complete this topic Insurance Medicare Medicaid [place] Medicare Medicaid [place] Care Teams Photographer Aerial Relationship Specialty Start Date End Date Laura Chapa MD [address] PCP - General Internal Medicine 11/06/23
--- OUTSIDE RECORDS SUMMARY | 2025-02-21 14:03 | XMS_ITS | Encounter Summary ---
Author Organization [employer] Address [address] [facility] [address] [place] [address] Care Team Providers Care Poker Machine Attendant Name Role Phone Laura Chapa MD Primary Care Provider Reason for Visit * Reason Comments Med Refill Encounter Details Date Type Department Care Team ([facility] st Contact Info) Description 09/29/2023 Refill [facility] [address] [place], [place] [phone] Laura Chapa MD [address] [place] [address] Pain Social History Tobacco Use Types Packs/Day [...] [facility] - [facility] [address] [place] [address] Laura Chapa MD [address] [place] [address] documented as of this encounter Visit Diagnoses Diagnosis Pain Generalized pain documented in this encounter Additional Health Concerns Assessment Noted Time PHQ-9 Depression Total Score: 7 08/09/20 23 11:34 AM EDT documented as of this encounter Care Teams Poker Machine Attendant Relationship Specialty Start Date End Date Laura Chapa MD [address] [place] [address] PCP - General Family Medicine 10/16/18 documented as of this encounter
--- OUTSIDE RECORDS SUMMARY | 2025-02-21 14:03 | XMS_ITS | Encounter Summary ---
Author Organization [employer] Address [address] [place] [address] [address]t [place] [address] Care Team Providers Care Boiler Plant Worker Name Role Phone Laura Chapa MD Primary Care Provider [phone] Reason for Visit * Reason Comments Med Refill Encounter Details Date Type Department Care Team ([facility] Contact Info) Description 12/08/2023 Refill [facility] PEDS [address] [place] [address] Laura Chapa MD [address] [place], [place] [phone] Social History Tobacco Use Types Packs/Day Years [...] Upcoming Encounters Date Type Department Care Team ([facility] Contact Info) Description 03/13/2025 11:00 AM EDT Office Visit [facility] P[facility]S [address] [place] [address] Laura Chapa MD [address] [place], [place] [phone] documented as of this encounter Visit Diagnoses Not on filedocumented in this encounter Additional Health Concerns Assessment Noted Time PHQ-9 Depression Total Score: 9 11/22/19 24 2:46 PM EST documented as of this encounter Care Teams Boiler Plant Worker Relationship Specialty Start Date End Date Laura Chapa MD [address] [place] [address] PCP - General Family Medicine 10/16/18 documented as of this encounter
--- OUTSIDE RECORDS SUMMARY | 2025-02-21 14:03 | XMS_ITS | Encounter Summary ---
Author Organization [facility] Address [address] [facility] 7t [place] [address] Care Team Providers Care Technologies Division Chair Name Role Phone Laura Chapa MD Primary Care Provider [phone] Encounter Details Date Type Department Care Team ([facility] Contact Info) Description 06/20/2023 Orders Only [facility] [address] [place], [place] [phone] Laura Chapa MD [address] [place], [place] [phone] Social History Tobacco Use Types Packs/Day Years [...] Care Team ([facility] Contact Info) Description 03/13/2025 11:00 AM EDT Office Visit [facility] [address] [place] [address] Laura Chapa MD [address] [place] [address] documented as of this encounter Procedures Procedure Name Priority Date/Time Associated Diagnosis Comments BASIC METABOLIC PANEL, FASTING Routine 08/09/2023 11:53 AM EDT COMPLETE BLOOD COUNT MAN DIF Routine 07/29/2023 10:46 PM EDT documented in this encounter Results * (ABNORMAL) Basic Metabolic Panel, Fasting (08/09/2023 11:53 AM EDT) Sodium 140 135 - 145 mmol/L [facility] Potassium 3.9 3.3 - 5.1 mmol/L [facility] Chloride 103 96 - 108 mmol/L [facility] Carbon Dioxide 25 22 - 29 mmol/L [facility] Anion Gap 16 12 - 20 [facility] Urea Nitrogen (BUN) 28(H) 9 - 16 mg/dL [facility] Creatinine, Serum 1.47(H) 0.5 - 1.4 mg/dL [facility] Estimated Glomerular Filt Rate 36 [facility] Comment:NOTE: For -Am erican individuals, multiply the result by 1.210.Chronic Kidney Disease: Estimated GFR < 60 mL/min/1.45f7Lksnjy Kidney Disease: Estimated GFR < 15 mL/min/1.73m2 Glucose Fasting 93 60 - 99 mg/dL [facility] Calcium 11.2(H) 8.4 - 10.2 mg/dL [facility] 08/09/2023 11:5 3 AM EDT 08/09/2023 2:55 PM EDT us Laura Chapa MD LAB BLOOD ORDERABLES Final Re sult [facility] [address] [place] [address] [phone] * (ABNORMAL) Complete Blood Count Manual Diff (07/29/2023 10:46 PM EDT) White Blood Count 9.0 4.8 - 10.8 X10*3/uL [facility] Red Blood Count 3.42(L) 4.20 - 5.50 X10*6/uL [facility] Hemoglobin 10.6(L) 12.0 - 16.0 g/dl [facility] Hematocrit 30.2(L) 37.0 - 47.0 % [facility] Mean Corpuscular Volume 88.3 80.0 - 98.0 fL [facility] Mean Corpuscular Hemoglobin 31.0 27.0 - 33.0 pg [facility] Mean Corpuscular HGB Conc 35.1(H) 31.0 - 35.0 g/dl [facility] Red Cell Distribution Width 13.2 11.0 - 16.0 % [facility] Platelet Count 307 160 - 400 X10*3/uL [facility] Mean Platelet Volume 10.0 9.4 - 12.3 fL [facility] NRBC Pct Auto 0.0 0.0 - 0.2 /100WBC [facility] NRBC Abs Auto 0.000 0.0 - 0.012 X10*3/uL [facility] Neutrophils % Manual 69 45 - 73 % [facility] Band Neutrophils Percent 5 3 - 5 % [facility] Lymphocytes Percent Manual 18(L) 20 - 40 % [facility] Monocytes Percent Manual 5 2 - 11 % [facility] EOSINOPHILS % MANUAL 1 0 - 4 % [facility] BASOPHILS % MANUAL 1 0 - 2 % [facility] Metamyelocytes % (Manual) 1 % [facility] NEUTROPHILS ABSOLUTE MANUAL 6.7 2.0 - 8.3 X10*3/uL [facility] LYMPHOCYTES ABSOLUTE MANUAL 1.6 1.2 - 4.9 X10*3/uL [facility] MONOCYTES ABSOLUTE MANUAL 0.5 0.1 - 1.2 X10*3/uL [facility] EOSINOPHILS ABSOLUTE MANUAL 0.1 0.0 - 0.4 X10*3/uL [facility] BASOPHILS ABSOLUTE MANUAL 0.1 0.0 - 0.2 X10*3/uL [facility] Absolute Metamyelocytes 0.1 X10*3/uL [facility] Platelet Estimate NORMAL NORMAL [facility] Platelet Morphology Comment NORMAL [facility] RBC Morphology [facility] 07/29/2023 10:4 6 PM EDT 07/29/2023 10:54 PM EDT us [facility] External Provider LAB BLO OD ORDERABLES Final Result [facility] [address] [place] [address] [phone] documented in this encounter Visit Diagnoses Not on filedocumented in this encounter Care Teams Technologies Division Chair Relationship Specialty Start Date End Date Laura Chapa MD [address] [place] [phone] PCP - General Family Medicine 10/16/18 documented as of this encounter
--- OUTSIDE RECORDS SUMMARY | 2025-02-21 14:03 | XMS_ITS | Encounter Summary ---
Author Organization [employer] Address [address] [place] [address] Care Team Providers Care Horse Trekking Guide Name Role Phone Laura Chapa MD Primary Care Provider [phone] Reason for Visit * Reason Onset Date Comments Medication Question 09/13/2023 Encounter Details Date Type Department Care Team ([facility] st Contact Info) Description 09/13/2023 Telephone [facility] [address] [place] [address] aLura Chapa MD [address] [place], [place] [phone] Medication Question Social History Tobacco Use Types [...] 20 MG tablet was reduce to 10mgbut specifications writer does not see on med 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 TC placed to patient on both home and mobile number to further clarify questions about Paxil script. No answer on either number. LM to call us back. Routing back to [facility] nurses to try again. * Telephone Encounter - Yunior Rosales - 09/13/2023 8:25 AM EST Tc from patient calling to inform the medication PARoxetine (Paxil) 20 MG tablet was reduce to 10mgbut specifications writer does not see on med 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 documented in this encounter Plan of Treatment Upcoming Encounters Date Type Department Care Team (Late st Contact Info) Description 03/13/2025 11:00 AM EDT Office Visit [facility] [address] [place] [address] Laura Chapa MD [address] [place] [address] documented as of this encounter Visit Diagnoses Not on filedocumented in this encounter Additional Health Concerns Assessment Noted Time PHQ-9 Depression Total Score: 7 08/09/20 23 11:34 AM EDT documented as of this encounter Care Teams Horse Trekking Guide Relationship Specialty Start Date End Date Laura Chapa MD [address] [place] [address] PCP - General Family Medicine 10/16/18 documented as of this encounter
--- OUTSIDE RECORDS SUMMARY | 2025-02-21 14:03 | XMS_ITS | Encounter Summary ---
Author Organization [employer] Address [address] [facility] [address] [place] [address] Care Team Providers Care Help Desk Technician Name Role Phone Laura Chapa MD Primary Care Provider [phone] Encounter Details Date Type Department Care Team ([facility] Contact Info) Description 08/10/2023 Orders Only [facility] & PEDS [address] [place], [place] [phone] Laura Chapa MD [address] [place], [place] [phone] Renal insufficiency (Primary Dx) Social History Tobacco [...] Encounters Date Type Department Care Team ([facility] Contact Info) Description 03/13/2025 11:00 AM EDT Office Visit [facility] [address] [place], [place] [phone] Laura Chapa MD [address] [place], [place] [phone] documented as of this encounter Visit Diagnoses Diagnosis Renal insufficiency- Primary Unspecified disorder of kidney and ureter documented in this encounter Additional Health Concerns Assessment Noted Time PHQ-9 Depression Total Score: 7 08/09/20 23 11:34 AM EDT documented as of this encounter Care Teams Help Desk Technician Relationship Specialty Start Date End Date Laura Chapa MD [address] [place] [address] PCP - General Family Medicine 10/16/18 documented as of this encounter
[2025-02-21 14:13] LABS: MANUAL DIFF FLAG NO
[2025-02-21 14:15] LABS: Basophils Percent Auto 0.7 % (0-2); Eosinophils Absolute Auto 0.1 X10*3/uL (0.0-0.4); Hematocrit 35.4 % (37.0-47.0); Hemoglobin 12.3 g/dl (12.0-16.0); Imm Gran Abs Auto 0.02 X10*3/uL (0.00-0.03); Imm Gran Pct Auto 0.3 % (0.0-0.4); Lymphocytes Absolute Auto 1.7 X10*3/uL (1.2-4.9); Lymphocytes Percent Auto 29.6 % (20-40); Mean Corpuscular HGB Conc 34.7 g/dl (31.0-35.0); Mean Corpuscular Hemoglobin 31.2 pg (27.0-33.0); Mean Corpuscular Volume 89.8 fL (80.0-98.0); Mean Platelet Volume 10.1 fL (9.4-12.3); Monocytes Absolute Auto 0.6 X10*3/uL (0.1-1.2); Monocytes Percent Auto 9.5 % (2-11); Neutrophils Absolute Auto 3.4 x10*3/uL (2.0-8.3); Neutrophils Percent Auto 58.9 % (45-73); Platelet Count 193 X10*3/uL (160-400); Red Blood Count 3.94 X10*6/uL (4.20-5.50); Red Cell Distribution Width 12.7 % (11.0-16.0); White Blood Count 5.8 X10*3/uL (4.8-10.8)
[2025-02-21 14:17] LABS: Appearance Urine Clear; Color Urine Yellow; Glucose Urine UA Negative (Negative); Leukocyte Esterase Urine Large (3+) (Negative); Nitrite Urine Negative (Negative); PH 6.5 (5.0-9.0); UMIC TRIGGER UACC YES; Urine Blood Negative (Negative); Urine Ketones Negative (Negative); Urine Protein Negative (Neg-Trace)
--- NOTE | 2025-02-21 14:26 | PC.NURSE ---
Re: med rec This RN completed med rec with assistance from patient and pts family/friend who prepares her medications for her
[2025-02-21 14:27] LABS: Amphetamine Screen Urine Not Detected (Not Detect); Barbiturates, Urine Not Detected (Not Detect); Benzodiazepines Screen Urine Not Detected (Not Detect); Buprenorphine Scr Not Detected (Not Detect); Cannabinoid Screen Urine Not Detected (Not Detect); Cocaine Screen Urine Not Detected (Not Detect); Fentanyl, urine Not Detected (Not Detect); Methadone Screen, Urine Not Detected (Not Detect); Opiate Screen Urine Not Detected (Not Detect); Oxycodone Screen Urine Not Detected (Not Detect); Phencyclidine Screen Urine Not Detected (Not Detect)
[2025-02-21 14:31] LABS: Alanine Aminotransferase 20 U/L (0-31); Albumin Level 4.4 g/dL (3.5-5.0); Alkaline Phosphatase 55 U/L (39-117); Anion Gap 9 (12-20); Aspartate Amino Transferase 21 U/L (5-31); Bilirubin Total 0.3 mg/dL (0.0-1.0); Blood Urea Nitrogen 24 mg/dL (9-16); Calcium 9.8 mg/dL (8.4-10.2); Carbon Dioxide 29 mmol/L (22-29); Chloride 105 mmol/L (96-108); Creatinine Clr Calc Pharmacy 33.2; Estimated Glomerular Filt Rate 46; Ethanol < 10 mg/dL; Glucose Random 92 mg/dL (60-115); Potassium 3.9 mmol/L (3.3-5.1); Sodium 139 mmol/L (135-145); Total Protein 6.8 g/dL (6.5-8.0)
[2025-02-21 14:59] LABS: Bacteria Urine Trace (None Seen); Hyaline Casts Urine 0-2 /LPF (0-2); RBC Urine 0-2 /HPF (0-2); Squamous Epithelial Cell Urine 0-2 /HPF (0-2); UACC Culture Trigger YES; WBC Urine 21-50 /HPF (0-5)
--- NOTE | 2025-02-21 15:23 | PC.NURSE ---
PT reporting back and leg pain, she ambulates with a walker, slow steady gait to the bathroom. she requested tylenol for her pain. Medicated as charted
[2025-02-21] MEDS: Acetaminophen 325 MG TABLET 650 MG PO (15:30)
--- NOTE | 2025-02-21 19:11 | PC.NURSE ---
ASSUMED CARE FOR PT AT APPROXIMATELY 1845. PT IS CURRENTLY IN ROOM LAYING IN BED WATCHING TV. NO ACUTE MEDICAL OR BEHAVIORAL CONCERNS AT THIS TIME.
[2025-02-21] MEDS: cefuroxime axetiL 250 MG TABLET PO (19:59)
--- NOTE | 2025-02-21 21:08 | MHC.CARE ---
Pt will be referred to case management. Nurse and provider made aware.
[2025-02-22 05:07] VITALS: BP 103/55; PULSE 68; RESP 16; TEMP 36.3; O2SAT 97
[2025-02-22] MEDS: traMADoL HCL 50 MG TABLET PO (06:33)
[2025-02-22] MEDS: cefuroxime axetiL 250 MG TABLET PO ×2 (06:33→18:31)
[2025-02-22 07:27] VITALS: BP 102/60; PULSE 77; RESP 17; TEMP 37.3; O2SAT 98
--- NOTE | 2025-02-22 08:42 | PC.NURSE ---
Assumed care of patient at 0645, patient appears to be in no apparent distress this am, reporting chronic hip pain. Continue plan of care for case management
--- NOTE | 2025-02-22 12:49 | PHA.MEDREC ---
Addendum entered by Joelle Cardenas RPh 02/22/25 13:41: reviewed by [facility]. Original Note: Pharmacy Consult ? Medication Reconciliation Pharmacy has completed the medication reconciliation. Spoke with patient and family member at bedtime who administers her medications. He reports patient is no longer taking lamotrigine. They both did not recognize oxybutynin. Paroxetine was discontinued. She ran out of midodrine at the beginning of January and needs to see her PCP for more refills. The oxcarbazepine was decreased from 750 mg daily to 150 mg bid. Rexulti is 1 mg at bedtime. Family member reports she last had medications yesterday morning.
[2025-02-22 14:09] VITALS: BP 115/65; PULSE 61; RESP 14; TEMP 36.5; O2SAT 98
--- NOTE | 2025-02-22 15:02 | MHC.CM.ED ---
Received case management consult overnight. Patient came to the ER due to abd pain and Crisis concerns. Patient was cleared by Care Team. Physical therapy eval ordered and pending. Will wait for PT eval to be completed to proceed with CM consult. Continue to monitor for d/c needs.
[2025-02-22 15:30] VITALS: BP 115/65; PULSE 61; O2SAT 98
[2025-02-22 15:54] LABS: Influenza A PCR NEGATIVE (Negative); Influenza B PCR NEGATIVE (Negative); Resp Syncy Virus RNA Qual PCR NEGATIVE (Negative); SARS COV2 PCR INHOUSE NEGATIVE (Negative)
[2025-02-22] MEDS: Acetaminophen 325 MG TABLET 650 MG PO (18:31)
--- NOTE | 2025-02-22 18:47 | PC.NURSE ---
pt [facility] to [facility] and settled in to room and oriented to staff/room. She rested quietly and endorsed some mild anxiety but denied SI/HI. Pt woke up late afternoon and reported pain in R hip. MATH PROFESSOR aware and meds ordered. Pt stated pain had resolved after hot packs had been applied but pain came back at a 2/10 and APAP given. Pt declined the lidocaine patch. Report called back to [facility] and pt transported with belongings as central hospital is closing at this time.
--- NOTE | 2025-02-22 18:57 | PC.NURSE ---
this rn assumed care of pt, pt brought from overflow to main ed at this time. pt remains in hospital bed, offers no complaints at this time. call camilo within reach
[2025-02-22 21:08] VITALS: BP 115/62; PULSE 78; RESP 17; TEMP 36.6; O2SAT 98
[2025-02-22] MEDS: Brexpiprazole 1 MG TABLET PO (21:08)
[2025-02-22] MEDS: Mirtazapine 15 MG TABLET PO (21:08)
[2025-02-22] MEDS: OXcarbazepine 150 MG TABLET PO (21:09)
--- NOTE | 2025-02-22 21:13 | PC.NURSE ---
pt medicated per mar, tolerated whole well with water.
--- NOTE | 2025-02-23 05:53 | PC.NURSE ---
pt uncomfortable with purewick, purewick removed. pt assisted with bedpan
[2025-02-23] MEDS: Levothyroxine Sodium 50 MCG TABLET PO (06:16)
[2025-02-23 06:17] VITALS: BP 132/46; PULSE 65; RESP 17; TEMP 37.1; O2SAT 97
[2025-02-23] MEDS: cefuroxime axetiL 250 MG TABLET PO ×2 (06:17→20:51)
[2025-02-23] MEDS: OXcarbazepine 150 MG TABLET PO ×2 (10:44→20:51)
[2025-02-23] MEDS: Multivitamin TABLET 1 TAB PO (10:44)
--- NOTE | 2025-02-23 11:45 | PC.NURSE ---
Pt OOB with walker to BR
--- NOTE | 2025-02-23 12:30 | MHC.CM.ED ---
Addendum entered by Ivana Parra 02/24/25 08:25: NO BED OFFERS A RESULT OF INITIAL REFERRAL REFERRAL EXPANDED TO WITHIN 50 MILES Original Note: Patient remains in ER. Physical therapy eval completed. Short term rehab is recommended. Met with patient and sig other, Carl. Patient has never been to STR and is agreeable to referral being broadcasted locally. PCP verified. HCP completed, signed and witnessed. Patient and Carl aware referral will be broadcasted casted and bed offers would be discussed. Patient will need MDS from [facility] and Level 2 from [facility] Level 2 Referral broadcasted at this time. Continue to monitor for d/c needs.
[2025-02-23 14:21] VITALS: BP 136/48; PULSE 72; RESP 16; TEMP 36.9; O2SAT 98
--- NOTE | 2025-02-23 19:13 | MHC.EDTECH ---
assumed care of pt @1900
[2025-02-23] MEDS: Mirtazapine 15 MG TABLET PO (20:51)
[2025-02-23] MEDS: Brexpiprazole 1 MG TABLET PO (20:51)
[2025-02-23] MEDS: Lidocaine 4 % Patch ADH..PATCH 1 PATCH TRANSDERMA (20:57)
--- NOTE | 2025-02-23 20:59 | PC.NURSE ---
pt medicated per DEC, c/o lower back patch. lidocaine patch applied per request
[2025-02-23 22:28] VITALS: BP 114/61; PULSE 78; RESP 15; TEMP 36.8; O2SAT 98
[2025-02-24 06:44] VITALS: BP 107/68; PULSE 78; RESP 16; TEMP 36.8; O2SAT 99
[2025-02-24] MEDS: Levothyroxine Sodium 50 MCG TABLET PO (06:46)
[2025-02-24] MEDS: cefuroxime axetiL 250 MG TABLET PO ×2 (06:46→19:23)
[2025-02-24 09:00] VITALS: BP 109/66; PULSE 79; RESP 16; TEMP 36.8; O2SAT 97
--- NOTE | 2025-02-24 10:26 | PC.NURSE ---
Trileptal 150mg unavailable in [place]. Reached out to pharmacy. Will administer medication upon receipt. Patient aware of reason for delay.
--- NOTE | 2025-02-24 10:36 | PC.NURSE ---
Requested and given snack of edward crackers & shaheen joan. Regular diet in place. No food allergies. Care ongoing by this RN.
[2025-02-24] MEDS: OXcarbazepine 150 MG TABLET PO ×2 (11:30→21:03)
[2025-02-24] MEDS: Multivitamin TABLET 1 TAB PO (11:30)
[2025-02-24 14:00] VITALS: BP 116/63; PULSE 83; RESP 16; TEMP 36.8; O2SAT 96
--- NOTE | 2025-02-24 16:29 | MHC.CM.PN ---
[facility] IS OFFERING A STR BED MDS AND LEVEL II NEEDED MDS STARTED, AWAITING PASRR
[2025-02-24 20:41] VITALS: BP 93/66; PULSE 81; RESP 16; TEMP 36.2; O2SAT 97
[2025-02-24] MEDS: Brexpiprazole 1 MG TABLET PO (21:03)
[2025-02-24] MEDS: Mirtazapine 15 MG TABLET PO (21:03)
[2025-02-24 22:30] VITALS: BP 105/68; PULSE 78
--- NOTE | 2025-02-24 23:58 | PC.NURSE ---
Assumed care of patient at 1900. Patient alert and oriented. Vitals stable, l/s clear, abd soft. Bedtime medications administered per dec. Assisted patient to bedside commode. Warm blanket provided, callbell within reach, bed alarm on.
--- NOTE | 2025-02-25 03:27 | PC.NURSE ---
This film writer assumed care of this Pt at 0300. Pt appears to be sleeping, equal, non labored respirations. Plan of care on going.
[2025-02-25 05:48] VITALS: BP 107/66; PULSE 74; RESP 15; TEMP 36.1; O2SAT 99
[2025-02-25] MEDS: cefuroxime axetiL 250 MG TABLET PO (06:03)
[2025-02-25] MEDS: Levothyroxine Sodium 50 MCG TABLET PO (06:03)
[2025-02-25 08:03] VITALS: BP 113/66; PULSE 68; RESP 16; TEMP 36.8; O2SAT 98
[2025-02-25] MEDS: Famotidine 20 MG TABLET PO (09:14)
[2025-02-25] MEDS: OXcarbazepine 150 MG TABLET PO ×2 (09:14→21:17)
[2025-02-25] MEDS: Calcium Carbonate 750 MG TAB.CHEW PO (09:14)
[2025-02-25] MEDS: Multivitamin TABLET 1 TAB PO (09:14)
--- NOTE | 2025-02-25 10:16 | PC.NURSE ---
Assumed care of pt at 0700. A&Ox4, respirations even and unlabored. Pt OOB to bedisde commode with one assist with rolling walker. Pt voiding CYU, malodorous. Pt here with UTI. Pt c/o epigastric pain, aware, pt medicated per DEC. Pt meal and med compliant - takes pills whole with water. Pt visitor Carl to bedside at approx 1000, voicing concern about pt being discharged close to [place] because he won't be able to visit pt that far away. Carl spoke with case management to discuss discharge options. Safety precautions in place - bed alarm on, non-skid footwear in place, call camilo within reach. Plan of care ongoing.
[2025-02-25] MEDS: levoFLOXacin 500 MG TABLET PO (12:33)
--- NOTE | 2025-02-25 14:06 | MHC.CM.ED ---
Patient remains in ER overflow. [facility] is only facility that is able to offer a bed at this time. Spoke with patient and sig other, Carl, in regards to discharge planning. Carl upset and stated patient can't go that far because he will not be able to visit patient. T/W explained patient would need to accept rehab bed or patient could be d/c'd home with VNA. Patient feels STR is needed and agreeable to accepting bed at [facility]. [facility] PASSR Level 2 obtained. MDS completed and sent to [facility] and [facility]. Will need [facility] level from [facility] before patient can transfer to [facility]. Continue to monitor for d/c needs.
[2025-02-25] MEDS: Mirtazapine 15 MG TABLET PO (21:17)
[2025-02-25] MEDS: Brexpiprazole 1 MG TABLET PO (21:17)
[2025-02-25 21:47] VITALS: BP 116/75; PULSE 93; RESP 16; TEMP 36.3; O2SAT 96
[2025-02-26] MEDS: Acetaminophen 325 MG TABLET 650 MG PO (01:27)
[2025-02-26 05:35] VITALS: BP 113/71; PULSE 86; RESP 16; TEMP 36.2; O2SAT 96
[2025-02-26 07:55] VITALS: BP 100/59; PULSE 84; RESP 18; TEMP 36.7; O2SAT 95
[2025-02-26] MEDS: levoFLOXacin 500 MG TABLET PO (08:24)
[2025-02-26] MEDS: OXcarbazepine 150 MG TABLET PO (08:24)
[2025-02-26] MEDS: Levothyroxine Sodium 50 MCG TABLET PO (08:25)
[2025-02-26] MEDS: Multivitamin TABLET 1 TAB PO (08:25)
--- NOTE | 2025-02-26 10:26 | MHC.CM.ED ---
Addendum entered by Linette Bagley 02/26/25 11:50: [facility] approval obtained. Patient can leave at 230pm. Rhoda AMES booked. [facility] with chart. Patient, sig other Everette Henry RN and Merlyn HANSEN aware. Original Note: Patient remains in ER overflow. Received email from Sarah of [facility] stating that approval is all set for [place]. Email sent to Katy at [facility]. Katy will reach out to Sarah. Patient has housing court scheduled for 03/07 at 9am. T/W spoke with Sundeep Loza Consulting Sales Executive, ADA Coor[employer] of [facility]. Motion form emailed from Sundeep to T/W. Sundeep recommended patient request motion for continuation . Form provided to patient. Assisted patient will completing. Patient signed. Original given to william. Copy emailed to Sundeep. Waiting for approval from [facility] for patient to transfer to their facility. Patient, sig other Everette Henry RN and Merlyn HANSEN aware. Continue to monitor for d/c needs.
[2025-02-26 14:00] VITALS: BP 112/62; PULSE 79; RESP 16; TEMP 36.8; O2SAT 95
[2025-02-26 14:28] VITALS: BP 112/64; PULSE 79; RESP 16; TEMP 36.8; O2SAT 96
== END 2025-02-26 14:30 | disposition skilled nursing facility (03) ==
PROVIDERS: Emergency Medicine Emergency Medical Services; Physician Assistant Medical; Emergency Provider Emergency Medicine; PCP Pediatrics
DX: F31.9 Bipolar disorder, unspecified (principal); R45.851 Suicidal ideations; F41.9 Anxiety disorder, unspecified; R41.89 Other symptoms and signs involving cognitive functions and awareness; N39.0 Urinary tract infection, site not specified; Z72.89 Other problems related to lifestyle; Z59.811 Housing instability, housed, with risk of homelessness; J45.909 Unspecified asthma, uncomplicated; E03.9 Hypothyroidism, unspecified; Z03.818 Encounter for observation for suspected exposure to other biological agents ruled out; Z79.899 Other long term (current) drug therapy
CPT/HCPCS: 0241U; 36415; 80053; 80307; 81001; 85025; 87086; 87088; 87186; 97161; 99285; S9485

== ENCOUNTER 2025-05-28 16:16 | Outpatient (REF) | payer MEDICARE, MEDICAID, SELFPAY ==
--- NOTE | ~2025-05-28 | MR_ITS ---
EXAMINATION: MR BRAIN WITHOUT IV CONTRAST HISTORY: Unsteady gait TECHNIQUE: Sagittal T1, and axial T1, FLAIR, T2, gradient echo, and diffusion weighted MR images of the brain were obtained. COMPARISON: Correlation is made with an unenhanced head CT dated 12/28/2024. FINDINGS: The pituitary is normal in size. The cerebellar tonsils are normally located. There is mild prominence of the ventricular system and cortical sulci, consistent with atrophy. Scattered periventricular and subcortical white matter hyperintensities are noted on the FLAIR and T2-weighted images which are nonspecific, but often seen in the setting of small vessel ischemic disease. There is no mass effect or midline shift. No intra or extra-axial fluid collections are identified. There are no foci of restricted diffusion. Normal vascular flow voids are noted in the basilar and carotid arteries. The visualized paranasal sinuses are clear. MR/MR head/brain wo con IMPRESSION: No acute intracranial abnormality. Electronically signed by: El Ryan MD 05/29/2025 07:15 AM EDT
== END 2025-05-28 16:17 | disposition home or self-care (01) ==
LOC: HO.MRI 16:16
PROVIDERS: PCP Pediatrics; Visit Provider Student in an Organized Health Care Education/Training Program
DX: R26.81 Unsteadiness on feet (principal)
CPT/HCPCS: 70551

== ENCOUNTER → 2025-05-28 16:30 | Outpatient (BNV) | payer MEDICARE, MEDICAID, SELFPAY | PROVIDERS: PCP Pediatrics; Visit Provider Radiology Diagnostic Radiology | DX: R26.81 Unsteadiness on feet (principal) | CPT/HCPCS: 70551 ==

== ENCOUNTER 2025-06-24 12:26 | Inpatient (IN) | payer MEDICARE, MEDICAID, SELFPAY ==
--- OUTSIDE RECORDS SUMMARY | 2025-06-19 11:00 | XMS_ITS | Encounter Summary ---
Author Organization [employer] Address [address] [facility] [address] [place] [address] Care Team Providers Care Clinical Laboratory Assistant Name Role Phone Laura Chapa MD Primary Care Provider [phone] Encounter Details Date Type Department Care Team ([facility] Contact Info) Description 06/19/2025 11:00 AM EDT Office Visit [facility] MED & PEDS [address] [place] [address] Laura Chapa MD [address] [place] [address] Memory loss (Primary Dx); Acquired hypothyroidism; Protein-calorie malnutrition, unspecified severity (CMS/HCC); Bipolar disorder, in partial remission, most recent episode mixed (CMS/HCC) Social History Tobacco Use Types Packs/Day Years Used Date Smoking Tobacco: Never Passive Smoke Exposure: Never Smokeless Tobacco: Never Depression Answer Date Recorded Patient Health Questionnaire-9 Score 0 06/19/2025 Patient Health Questionnaire-9 Score 0 06/19/2025 Last PHQ-9: Questionnaire Data Not on file 0 06/19/2025 Depression Answer Date Recorded Patient Health Questionnaire-2 Score 0 06/19/2025 Comments Unknown Sex and Gender Information Value Date Recorded Sex Assigned at Female 08/15/2022 10:17 AM EDT Legal Sex Female 10:17 AM EDT Gender Identity Choose not to disclose 10:17 AM EDT Sexual Orientation Choose not to disclose 2021 10:17 AM EDT documented as of this encounter Last Filed Vital Signs Vital Sign Reading Time Taken Comments Blood Pressure 122/64 06/19/2025 10:58 AM EDT Pulse 84 06/19/2025 10:58 AM EDT Temperature 36.1 C (97 F) 06/19/2025 10:58 AM EDT Respiratory Rate 16 06/19/2025 10:58 AM EDT Oxygen Saturation - - Inhaled Oxygen Concentration - - Weight 46.3 kg (102 lb) 06/19/2025 10:58 AM EDT Height 152.4 cm (5') 06/19/2025 10:58 AM EDT Body Mass Index 19.92 06/19/2025 10:58 AM EDT documented in this encounter Functional Status * Over the past 2 weeks, how often have you been bothered by any of the following problems? Question Answer Date of Assessment Author Patient Health Questionnaire-2 Score 0 01/2025 10:59 AM Patricia Ahn MA * Little interest or pleasure in doing things Answer Date of Assessment Author Not at all 06/19/2025 10:59 AM Abdiel Ahn MA * Feeling down, depressed, or hopeless Answer Date of Assessment Author Not at all 06/19/2025 10:59 AM Abdiel Ahn MA * Trouble falling or staying asleep, or sleeping too much Answer Date of Assessment Author Not at all 06/19/2025 10:59 AM Abdiel Ahn MA * Feeling tired or having little energy Answer Date of Assessment Author Not at all 06/19/2025 10:59 AM Abdiel Ahn MA * Poor appetite or overeating Answer Date of Assessment Author Not at all 06/19/2025 10:59 AM Abdiel Ahn MA * Feeling bad about yourself - or that you are a failure or have let yourself or your family down Answer Date of Assessment Author Not at all 06/19/2025 10:59 AM Abdiel Ahn MA * Trouble concentrating on things, such as reading the newspaper or watching television Answer Date of Assessment Author Not at all 06/19/2025 10:59 AM Abdiel Ahn MA * Moving or speaking so slowly that other people could have noticed? Or the opposite - being so fidgety or restless that you have been moving around a lot more than usual. Answer Date of Assessment Author Not at all 06/19/2025 10:59 AM Abdiel Ahn MA * Thoughts that you would be better off or hurting yourself in some way Answer Date of Assessment Author Not at all 06/19/2025 10:59 AM Abdiel Ahn MA * Patient Health Questionnaire-9 Score Answer Date of Assessment Author 0 06/19/2025 10:59 AM Abdiel Ahn MA documented as of this encounter Progress Notes * Laura Chapa MD - 06/19/2025 11:00 AM EDT Subjective Patient ID: Maria Ines Chan is a 69 y.o. adult who presents for f/u. Maria Ines is a 69-year-old female patient of [facility] with past medical history of bipolar disorder and hypothyroidism stable on levothyroxine here for follow-up. She is here with her roommate Carl as she is using a walker mostly for ambulation or a cane. Patient had a psych admission a few weeks ago. Feels better now and is being followed by psychiatry. Patient would like to move to an assisted living facility where she could get more help. Patient has 2 different facilities in mind and is trying to decide which one is most appropriate. Patient's appetite varies depending on her mood. Review of Systems Constitutional: Negative for activity change, chills, fever and unexpected weight change. Respiratory: Negative for cough, shortness of breath and wheezing. Cardiovascular: Negative for chest pain, palpitations and leg swelling. Gastrointestinal: Negative for abdominal pain and blood in stool. Endocrine: Negative for polydipsia and polyuria. Genitourinary: Negative for decreased urine volume, difficulty urinating, dysuria and hematuria. Musculoskeletal: Negative for arthralgias and gait problem. Skin: Negative for color change and rash. Neurological: Negative for dizziness and headaches. Hematological: Negative for adenopathy. Psychiatric/Behavioral: Negative for dysphoric mood, hallucinations, sleep disturbance and suicidalideas. The patient is not nervous/anxious. Objective BP 122/64 (BP Location: Left arm, Patient Position: Sitting, BP Cuff Size: Adult) Pulse84 Temp 97 ??F (36.1 ??C) (Oral) Resp 16 Ht 5' (1.524 m) Wt 102 lb (46.3 kg) BMI 19.92 kg/m?? Physical Exam Vitals reviewed. Constitutional: General: Maria Ines is not in acute distress. Appearance: Normal appearance. Maria Ines is not ill-appearing. HENT: Head: Normocephalic. Right Ear: Tympanic membrane and ear canal normal. Left Ear: Tympanic membrane and ear canal normal. Nose: Nose normal. Mouth/Throat: Mouth: Mucous membranes are moist. Pharynx: No oropharyngeal exudate or posterior oropharyngeal erythema. Eyes: Extraocular Movements: Extraocular movements intact. Conjunctiva/sclera: Conjunctivae normal. Pupils: Pupils are equal, round, and reactive to light. Cardiovascular: Rate and Rhythm: Normal rate and regular rhythm. Pulses: Normal pulses. Heart sounds: Normal heart sounds. Pulmonary: Effort: Pulmonary effort is normal. No respiratory distress. Breath sounds: Normal breath sounds. Abdominal: Palpations: Abdomen is soft. Musculoskeletal: General: No swelling. Normal range of motion. Cervical back: Normal range of motion. Right lower leg: No edema. Left lower leg: No edema. Comments: Gait observed and relies heavily on walker for assistance Skin: General: Skin is warm. Capillary Refill: Capillary refill takes less than 2 seconds. Neurological: General: No focal deficit present. Mental Status: Maria Ines is alert and oriented to person, place, and time. Coordination: Coordination normal. Gait: Gait abnormal. Psychiatric: Mood and Affect: Mood normal. Behavior: Behavior normal. Thought Content: Thought content normal. Judgment: Judgment normal. Assessment/Plan Diagnoses and all orders for this visit: Memory loss - Nutritional Supplements (Boost High Protein) liquid; Drink 1 bottle daily ( vanilla flavor) Acquired hypothyroidism Comments: TFTs at goal on current dose of levothyroxine. These were checked recently. Continue same dose for now. Protein-calorie malnutrition, unspecified severity (CMS/HCC) Comments: Prescription for boost shakes given to patient for her to try. Advised to let me know if likes themso that I can send a prescription to DME. Placed on flu shot wait list as she would like to get it at our clinic instead of local pharmacy. Bipolar disorder, in partial remission, most recent episode mixed (CMS/HCC) Comments: Follow-up with psychiatry as planned. Take meds with good compliance. Labs up-to-date. Other orders - acetaminophen (Tylenol 8 Hour) 650 MG ER tablet; Take 1 tablet (650 mg) by mouth every 8 (eight) hours if needed for mild pain for up to 10 days. Do not crush, chew, or split. documented in this encounter Plan of Treatment Not on file documented as of this encounter Visit Diagnoses Diagnosis Memory loss- Primary Acquired hypothyroidism Unspecified hypothyroidism Protein-calorie malnutrition, unspecified severity (CMS/HCC) Bipolar disorder, in partial remission, most recent episode mixed (CMS/HCC) documented in this encounter Additional Health Concerns Assessment Noted Time PHQ-9 Depression Total Score: 0 06/19/20 25 10:59 AM EDT documented as of this encounter Care Teams Clinical Laboratory Assistant Relationship Specialty Start Date End Date Laura Chapa MD [address] [place] [id number] PCP - General Family Medicine 10/16/18 documented as of this encounter
--- NOTE | 2025-06-24 12:31 | ED.PSYCH ---
HPI - Psych General Chief Complaint: Psychiatric Symptoms Stated Complaint: Depressed Time Seen by Provider: 06/24/25 12:40 Source: patient and old records reviewed Mode of arrival: ambulatory Limitations: no limitations History of Present Illness ED Provider: SRIKANTH HPI Narrative: 69 yo female with PMH of bipolar, cognitive impairment, hypothyroidism here with c/o depression due to housing and hronic R sided sciatica pain but no neuro symptoms. She has mentioned needing shelter care as well. She denies any new trauma, no SI/HI but states she is severely depressed. She is accompanied by her boyfriend Carl. complaint: feels depressed and anxiety Onset (ago): week(s) Duration: getting worse History of same: Yes Relieving factors: none Exacerbating factors: other Context: significant life stressor Associated psychiatric symptoms: depression Associated symptoms: other (chronic R sided sciatica) Treatments prior to arrival: none Related Data Home Medications ?Medication ?Instructions ?Recorded ?Confirmed lidocaine 5 % topical patch 1 patch topical DAILY PRN Pain 02/21/25 06/24/25 oxcarbazepine 150 mg tablet 150 mg PO BID 02/21/25 06/24/25 acetaminophen 650 mg 650 mg PO Q8H PRN Pain 02/22/25 06/24/25 tablet,extended release brexpiprazole 1 mg tablet (Rexulti) 1 mg PO BEDTIME 02/22/25 06/24/25 levothyroxine 50 mcg tablet 50 mcg PO DAILY@0600 02/22/25 06/24/25 Previous Rx's ?Medication ?Instructions ?Recorded albuterol sulfate 90 mcg/actuation 1 inh inhalation QID PRN 12/25/24 aerosol inhaler wheezing/SOB #6.7 grams mirtazapine 15 mg tablet 15 mg PO BEDTIME #30 tabs 12/25/24 Allergies Allergy/AdvReac Type Severity Reaction Status Date / Time penicillin V Allergy Unknown Unknown Verified 06/24/25 12:34 PENDING SALE TO [facility] Past Medical History Attestation statement: The following information was validated with the patient. Source: old records reviewed Medical History Asthma Hypothyroid Bipolar disorder Osteoarthritis of right hip Social History Social History Household Members: Significant Other Housing: House Unable to assess alcohol history related to: Unknown Alcohol intake: former Patient Tobacco Use Status: Tobacco use Unknown Smoked in Last 30 Days: No Use of substances other than those prescribed or required for medical reasons: No Currently Displaying Signs/Symptoms of Drug Intoxication Withdrawal: No Advance Directives: No Advance Directives Information Provided: Yes Do you have thoughts of harming others: None Do you have a plan to hurt others: No Plan Recently lost weight without trying: Yes How much weight loss: 2-13 pounds Nutrition Risks: No Nutritional Risk Patient : No service: No Current occupational status: retired Sexual orientation: Straight/Heterosexual Physical Exam Vital Signs: Vital Signs: Last Vital Signs Temp 98.1 F 06/26/25 08:00 Pulse 81 06/26/25 08:00 Resp 16 06/26/25 08:00 BP 117/67 06/26/25 08:00 Pulse Ox 97 06/26/25 08:00 O2 Del Method Room Air 06/26/25 08:00 BMI result Body Mass Index 19.3 Appearance: Alert. Oriented X3. No acute distress. Eyes: Pupils equal, round and reactive to light. ENT: Pharynx normal. Neck: Normal inspection. Neck supple. CVS: Normal heart rate and rhythm. Pulses normal. Respiratory: No respiratory distress. Breath sounds normal. Abdomen: Soft and nontender. Skin: Skin warm and dry. Normal skin color. Normal skin turgor. Extremities: No lower extremity edema. pain lifting R leg Neuro: Oriented X 3. No motor deficit. No sensory deficit. CN2-12 intact Course Course Course Narrative: This is an RME: Additional HPI, ROS, PE not included below will be deferred to primary provider. RME assessment and note performed by: Fani Pizano PA-C This is a 48-azrl-pnd-female, with a hx of asthma, hypothyroidism, bipolar disorder, and osteoarthritis, who presents to the ER accompanied by her boyfriend with a complaints of extreme depression. Endorsing excessive stress with housing. No AH/VH. Pt endorses memory problems, therefore boyfriend helping with history. No etoh use or drug use. No SI/HI. Was admitted in December for depression Plan: Labs, UA, crisis, further ER eval needed Reevaluation(s) Reevaluation #1: Time: 18:00 Date: 06/24/25 Provider: Irasema Desai DO Physician observation ended at 1800. Patient to be admitted as inpatient to psychiatry. Medications Administered Generic Name Dose Route Start Last Admin Trade Name Frenely PRN Reason Stop Dose Admin Acetaminophen 650 mg 06/24/25 17:00 06/26/25 09:01 Acetaminophen 325 Mg Tablet PO 650 mg Q6H PRN Administration Headache/Pain, Scale 1-10 Brexpiprazole 1 mg 06/24/25 21:00 06/25/25 21:42 Brexpiprazole 1 Mg Tablet PO 1 mg BEDTIME KIRSTIE Administration Levothyroxine Sodium 50 mcg 06/25/25 06:00 06/26/25 05:56 Levothyroxine Sodium 50 Mcg Tablet PO 50 mcg DAILY@0600 KIRSTIE Administration Lidocaine 1 patch 06/24/25 19:49 06/24/25 20:39 Lidocaine 4 % Patch Adh..Patch TRANSDERMA 1 patch DAILY PRN Administration Pain Mirtazapine 15 mg 06/24/25 21:00 06/25/25 21:57 Mirtazapine 15 Mg Tablet PO 15 mg BEDTIME KIRSTIE Administration Oxcarbazepine 150 mg 06/24/25 21:00 06/26/25 09:01 Oxcarbazepine 150 Mg Tablet PO 150 mg BID KIRSTIE Administration Sertraline HCl 25 mg 06/26/25 09:00 06/26/25 09:01 Sertraline Hcl 25 Mg Tablet PO 25 mg DAILY KIRSTIE Administration Medical Decision Making Medical Decision Making [facility] Narrative: 69 yo female with PMH of bipolar, cognitive impairment, hypothyroidism here with c/o bein depressed due to housing situation she has no SI/HI but she reports depression. She also c/o chronic R sciatica but no CE symptoms. Will refer to CARE team and possibly CM. Differential Diagnosis Differential Diagnoses: The differential diagnosis associated with the presentation includes adjustment reaction, FTT, sciatica Admission/Observation Consideration of admission/observation: Escalation of care including admission/observation considered physician observation started at 2pm pending CARE team Consult Healthcare Provider Management of the patient was discussed with: Behavioral Health Provider Lab Data MDM Lab Attestation statement: I reviewed the patient's lab results. 06/24/25 13:21 06/25/25 08:04 Labs: Lab Results 06/24/25 06/24/25 Range/Units 13:21 13:22 WBC 5.2 (4.8-10.8) X10*3/uL RBC 3.92 L (4.20-5.50) X10*6/uL Hgb 12.1 (12.0-16.0) g/dl Hct 34.7 L (37.0-47.0) % MCV 88.5 (80.0-98.0) fL MCH 30.9 (27.0-33.0) pg MCHC 34.9 (31.0-35.0) g/dl RDW 14.1 (11.0-16.0) % Plt Count 196 (160-400) X10*3/uL MPV 10.5 (9.4-12.3) fL Immature Gran % (Auto) 0.4 (0.0-0.4) % Neut % (Auto) 63.7 (45-73) % Lymph % (Auto) 25.2 (20-40) % [place] % (Auto) 7.6 (2-11) % Eos % (Auto) 2.3 (0-4) % Baso % (Auto) 0.8 (0-2) % Lymph # (Auto) 1.3 (1.2-4.9) X10*3/uL [place] # (Auto) 0.4 (0.1-1.2) X10*3/uL Eos # (Auto) 0.1 (0.0-0.4) X10*3/uL Baso # (Auto) 0.0 (0.0-0.2) X10*3/uL Abs Immat Gran (auto) 0.02 (0.00-0.03) X10*3/uL Absolute Neuts (auto) 3.3 (2.0-8.3) x10*3/uL Absolute Nucleated RBC 0.000 (0.0-0.012) X10*3/uL Nucleated RBC % (auto) 0.0 (0.0-0.2) /100WBC Sodium 147 H (135-145) mmol/L Potassium 4.1 (3.3-5.1) mmol/L Chloride 109 H (96-108) mmol/L Carbon Dioxide 27 (22-29) mmol/L Anion Gap 15 (12-20) BUN 22 H (9-16) mg/dL Creatinine 1.26 (0.5-1.4) mg/dL Estim Creat Clear Calc 31.2 Estimated GFR 42 Random Glucose 102 (60-115) mg/dL Calcium 9.6 (8.4-10.2) mg/dL Total Bilirubin 0.3 (0.0-1.0) mg/dL AST 25 (5-31) U/L ALT 15 (0-31) U/L Alkaline Phosphatase 60 (39-117) U/L Total Protein 6.8 (6.5-8.0) g/dL Albumin 4.8 (3.5-5.0) g/dL TSH 0.82 (0.32-4.0) uIU/mL Urine Color Yellow Urine Appearance Clear Urine pH 6.5 (5.0-9.0) Ur Specific [place] 1.015 (1.005-1.025) Urine Protein Negative (Neg-Trace) mg/dL Urine Glucose (UA) Negative (Negative) mg/dL Urine Ketones Negative (Negative) mg/dL Urine Blood Negative (Negative) Urine Nitrite Negative (Negative) Ur Leukocyte Esterase Trace H (Negative) Urine RBC 0-2 (0-2) /HPF Urine WBC 0-5 (0-5) /HPF Ur Squamous Epith Cells 0-2 (0-2) /HPF Urine Bacteria None Seen (None Seen) Hyaline Casts 0-2 (0-2) /LPF Salicylates < 5.0 L (15-30) mg/dL Urine Opiates Screen Not Detected (Not Detect) Ur Buprenorphine Scrn Not Detected (Not Detect) ng/mL Ur Oxycodone Screen Not Detected (Not Detect) ng/mL Urine Methadone Screen Not Detected (Not Detect) ng/mL Urine Fentanyl Screen Not Detected (Not Detect) Acetaminophen 4 (<30) mcg/mL Ur Barbiturates Screen Not Detected (Not Detect) Ur Phencyclidine Scrn Not Detected (Not Detect) Ur Amphetamines Screen Not Detected (Not Detect) U Benzodiazepines Scrn Not Detected (Not Detect) Urine Cocaine Screen Not Detected (Not Detect) U Marijuana (THC) Screen Not Detected (Not Detect) Ethyl Alcohol < 10 mg/dL COVID-19 (SHERLY) Negative (Negative) COVID-19 Clin Com See Note Independent Interpretation I performed an independent interpretation of an: EKG Interpretation: Rate: 58 Rhythm: sinus bradycardia [place]: normal Normal P waves. Normal [place]. Normal QRS complex. ST T wave : inverted t waves aVL, V1 qTC: 398 prior studies: no change from prior The study has been interpreted contemporaneously by me. . Discharge Plan Discharge Clinical Impression: Depression Qualifiers: Depression Type: unspecified Qualified Code(s): F32.A - Depression, unspecified Patient Disposition: Admitted As Inpatient Interventions: Admission Worksheet (ED) Last Done: 06/24/25 18:24 Discharge Date/Time: 06/24/25 18:25
[2025-06-24 12:32] VITALS: BP 108/55; PULSE 68; RESP 18; TEMP 36.7; O2SAT 98; BMI 19.3
--- NOTE | 2025-06-24 12:35 | ECG_ITS ---
Test Reason : PROLONGED OT Blood Pressure : */* mmHG Vent. Rate : 58 BPM Atrial Rate : 58 BPM P-R Int : 140 ms QRS Dur : 80 ms QT Int : 406 ms P-R-T Axes : 81 31 74 degrees QTcB Int : 398 ms Sinus bradycardia Otherwise normal ECG When compared with ECG of 23-Dec-2024 10:08, No significant change was found Referred By: Fani Pizano Electronically Signed By: NIKA CORTES MD
[2025-06-24 13:27] LABS: MANUAL DIFF FLAG NO
[2025-06-24 13:29] LABS: Hematocrit 34.7 % (37.0-47.0); Hemoglobin 12.1 g/dl (12.0-16.0); Imm Gran Abs Auto 0.02 X10*3/uL (0.00-0.03); Imm Gran Pct Auto 0.4 % (0.0-0.4); Lymphocytes Absolute Auto 1.3 X10*3/uL (1.2-4.9); Mean Corpuscular HGB Conc 34.9 g/dl (31.0-35.0); Mean Corpuscular Hemoglobin 30.9 pg (27.0-33.0); Mean Corpuscular Volume 88.5 fL (80.0-98.0); NRBC Abs Auto 0.000 X10*3/uL (0.0-0.012); NRBC Pct Auto 0.0 /100WBC (0.0-0.2); Platelet Count 196 X10*3/uL (160-400); Red Blood Count 3.92 X10*6/uL (4.20-5.50); White Blood Count 5.2 X10*3/uL (4.8-10.8)
[2025-06-24 13:31] LABS: Appearance Urine Clear; Glucose Urine UA Negative (Negative); PH 6.5 (5.0-9.0); Specific Gravity - Urine 1.015 (1.005-1.025); UMIC TRIGGER UA YES
[2025-06-24 13:40] LABS: Cannabinoid Screen Urine Not Detected (Not Detect)
[2025-06-24 13:44] LABS: COVID-19 Test Negative (Negative); IDNOW Serial# 55D5AD1C
[2025-06-24 13:45] LABS: Acetaminophen LAB 4 mcg/mL (<30); Salicylate < 5.0 mg/dL (15-30)
[2025-06-24 13:46] LABS: Alanine Aminotransferase 15 U/L (0-31); Albumin Level 4.8 g/dL (3.5-5.0); Alkaline Phosphatase 60 U/L (39-117); Anion Gap 15 (12-20); Aspartate Amino Transferase 25 U/L (5-31); Blood Urea Nitrogen 22 mg/dL (9-16); Calcium 9.6 mg/dL (8.4-10.2); Carbon Dioxide 27 mmol/L (22-29); Chloride 109 mmol/L (96-108); Creatinine Clr Calc Pharmacy 31.2; Estimated Glomerular Filt Rate 42; Potassium 4.1 mmol/L (3.3-5.1); Sodium 147 mmol/L (135-145); Total Protein 6.8 g/dL (6.5-8.0)
--- NOTE | 2025-06-24 14:06 | PC.NURSE ---
Pt ambulated to bathroom with wheeled walker and stand by/supervision, ambulated with steady gait.
[2025-06-24 14:45] VITALS: BP 125/71; PULSE 59; RESP 18; TEMP 36.6
--- NOTE | 2025-06-24 14:46 | PC.NURSE ---
Pt reporting tightness chest. VS obtained and provider notified. Pt also states feeling very nervous and anxious.
--- OUTSIDE RECORDS SUMMARY | 2025-06-24 16:04 | XMS_ITS | Encounter Summary ---
Author Organization [employer] Address [address] [facility] 7t [place] [address] Care Team Providers Care Pharmacy Benefits Coordinator Name Role Phone Laura Chapa MD Primary Care Provider [phone] Encounter Details Date Type Department Care Team ([facility] Contact Info) Description 11/02/2023 Orders Only [facility] CHC MED & PEDS [address] [place] [address] Laura Chapa MD [address] [place] [address] Social History Tobacco Use Types Packs/Day Years [...] documented as of this encounter Care Teams Pharmacy Benefits Coordinator Relationship Specialty Start Date End Date Laura Chapa MD [address] [place] [address] PCP - General Family Medicine 10/16/18 documented as of this encounter
--- OUTSIDE RECORDS SUMMARY | 2025-06-24 16:04 | XMS_ITS | Encounter Summary ---
Author Organization [employer] Address [address] [facility] 7t [place] [address] Care Team Providers Care Drug Abuse Resistance Education Officer Name Role Phone Laura Chapa MD Primary Care Provider [phone] Reason for Visit * Reason Comments Med Refill Encounter Details Date Type Department Care Team ([facility] Contact Info) Description 06/09/2025 Refill [facility] CHC MED & PEDS [address] [place] [address] Alee Colin MD 505 [place] [address] Social History Tobacco Use Types Packs/Day Years [...] documented as of this encounter Care Teams Drug Abuse Resistance Education Officer Relationship Specialty Start Date End Date Laura Chapa MD [address] [place] [address] PCP - General Family Medicine 10/16/18 documented as of this encounter
--- OUTSIDE RECORDS SUMMARY | 2025-06-24 16:04 | XMS_ITS | Encounter Summary ---
Author Organization [employer] Address [address] [facility] 7t [place] [address] Care Team Providers Care Flexible Shaft Winder Name Role Phone Laura Chapa MD Primary Care Provider [phone] Reason for Visit * Reason Comments Med Refill Encounter Details Date Type Department Care Team ([facility] st Contact Info) Description 06/09/2025 Refill [facility] MEDICINE [address] [place] [address] Laura Chapa MD [address] [place] [address] Social History Tobacco Use Types Packs/Day Years [...] documented as of this encounter Care Teams Flexible Shaft Winder Relationship Specialty Start Date End Date Laura Chapa MD [address] [place] [address] PCP - General Family Medicine 10/16/18 documented as of this encounter
--- OUTSIDE RECORDS SUMMARY | 2025-06-24 16:05 | XMS_ITS | Encounter Summary ---
Author Organization [employer] Address [address] [place] [address] 7t [place] [address] Care Team Providers Care Dairy Equipment Installer Name Role Phone Laura Chapa MD Primary Care Provider [phone] Reason for Visit * Reason Onset Date Comments Med Refill 06/12/2025 Encounter Details Date Type Department Care Team ([facility] Contact Info) Description 06/12/2025 Telephone [facility] CHC MED & PEDS [address] [place] [address] Laura Chapa MD [address] [place] [address] Med Refill Social History Tobacco Use Types Packs/Day Years [...] encounter Miscellaneous Notes * Telephone Encounter - Deanna Swift LPN - 06/12/2025 1:25 PM EDT Medication was denied by PCP refill not appropriate * Telephone Encounter - Mandy Melgoza - 06/12/2025 1:23 PM EDT TC from pt requesting medication refill. Medications needing refill : naproxen (Naprosyn) 500 MG tablet To be sent to: [facility]- [place]- - JULIANNA Kendrick - [address] [facility] documented in this encounter Plan of Treatment Not on file documented as of this encounter Visit Diagnoses Not on filedocumented in this encounter Additional Health Concerns Assessment Noted Time PHQ-9 Depression Total Score: 9 11/22/19 24 2:46 PM EST documented as of this encounter Care Teams Dairy Equipment Installer Relationship Specialty Start Date End Date Laura Chapa MD [address] [place] [address] PCP - General Family Medicine 10/16/18 documented as of this encounter
--- OUTSIDE RECORDS SUMMARY | 2025-06-24 16:05 | XMS_ITS | Encounter Summary ---
Author Organization [employer] Address [address] [facility] 7t [place] [address] Care Team Providers Care Sanitarian Inspector Name Role Phone Laura Chapa MD Primary Care Provider [phone] Reason for Visit * Reason Comments Med Refill Encounter Details Date Type Department Care Team ([facility] Contact Info) Description 02/14/2024 Refill [facility] CHC MED & PEDS [address] [place] [address] Laura Chapa MD [address] [place] [address] Social History Tobacco Use Types Packs/Day Years [...] documented as of this encounter Care Teams Sanitarian Inspector Relationship Specialty Start Date End Date Laura Chapa MD [address] [place] [address] PCP - General Family Medicine 10/16/18 documented as of this encounter
--- OUTSIDE RECORDS SUMMARY | 2025-06-24 16:05 | XMS_ITS | Encounter Summary ---
Author Organization [employer] Address [address] [facility] 7t [place] [address] Care Team Providers Care Tobacco Curer Name Role Phone Laura Chapa MD Primary Care Provider [phone] Reason for Visit * Reason Onset Date Comments call back needed 02/19/2025 Encounter Details Date Type Department Care Team ([facility] st Contact Info) Description 02/19/2025 Telephone [facility] MEDICINE [address] [place] [address] Laura Chapa MD [address] [place], [place] [phone] call back needed Social History Tobacco Use [...] documented as of this encounter Care Teams Tobacco Curer Relationship Specialty Start Date End Date aLura Chapa MD [address] [place] [id number] PCP - General Family Medicine 10/16/18 documented as of this encounter
--- OUTSIDE RECORDS SUMMARY | 2025-06-24 16:05 | XMS_ITS | Encounter Summary ---
Author Organization [employer] Address [address] [facility] 7t [place] [address] Care Team Providers Care Periodontist Name Role Phone Laura Chapa MD Primary Care Provider [phone] Reason for Visit * Reason Comments Med Refill Encounter Details Date Type Department Care Team ([facility] Contact Info) Description 12/08/2023 Refill [facility] CHC MED & PEDS [address] [place] [address] Laura Chapa MD [address] [place] [address] Social History Tobacco Use Types Packs/Day Years [...] documented as of this encounter Care Teams Periodontist Relationship Specialty Start Date End Date Laura Chapa MD [address] [place] [address] PCP - General Family Medicine 10/16/18 documented as of this encounter
--- OUTSIDE RECORDS SUMMARY | 2025-06-24 16:05 | XMS_ITS | Clinical Summary ---
Author Organization [facility] Address [address] [facility] [address] [place] [address] Phone Care Team Providers Care Coin Purse Assembler Name Role Phone Laura Chapa MD Primary Care Provider [phone] Allergies Active Allergy Reactions Criticality Noted Date [...] Active Problems Problem Noted Date Diagnosed Date [place] adverse reaction 02/04/2024 Stage 3a chronic kidney [...] PCV) 02/28/2014 02/28/2013, 03/01/2012 Influenza Vaccine (#1) 2025 Hepatitis B Vaccine Aged Out No longe r eligible based on patient's age to complete this topic Insurance Medicare Medicaid [place] Medicare Medicaid [place] Care Teams Coin Purse Assembler Relationship Specialty Start Date End Date Laura Chapa MD [address] PCP - General Internal Medicine 11/06/23
--- OUTSIDE RECORDS SUMMARY | 2025-06-24 16:05 | XMS_ITS | Encounter Summary ---
Author Organization [employer] Address [address] [facility] 7t [place] [address] Care Team Providers Care Tester Equipment Name Role Phone Laura Chapa MD Primary Care Provider [phone] Reason for Visit * Reason Onset Date Comments Medication Question 09/13/2023 Encounter Details Date Type Department Care Team ([facility] Contact Info) Description 09/13/2023 Telephone [facility] MEDICINE [address] [place] [address] Laura Chapa MD [address] [place] [address] Medication Question Social History Tobacco Use Types [...] 20 MG tablet was reduce to 10mgbut short story writer does not see on med 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 TC placed to patient on both home and mobile number to further clarify questions about Paxil script. No answer on either number. LM to call us back. Routing back to [facility] nurses to try again. * Telephone Encounter - Yunior Rosales - 09/13/2023 8:25 AM EST Tc from patient calling to inform the medication PARoxetine (Paxil) 20 MG tablet was reduce to 10mgbut short story writer does not see on med 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 documented in this encounter Plan of Treatment Not on file documented as of this encounter Visit Diagnoses Not on filedocumented in this encounter Additional Health Concerns Assessment Noted Time PHQ-9 Depression Total Score: 7 08/09/20 23 11:34 AM EDT documented as of this encounter Care Teams Tester Equipment Relationship Specialty Start Date End Date Laura Chapa MD [address] [place] [address] PCP - General Family Medicine 10/16/18 documented as of this encounter
--- OUTSIDE RECORDS SUMMARY | 2025-06-24 16:05 | XMS_ITS | Encounter Summary ---
Author Organization [employer] Address [address] [place] [address] 7t [place] [address] Care Team Providers Care Nurse Auditor Name Role Phone Laura Chapa MD Primary Care Provider [phone] Reason for Visit * Reason Onset Date Comments Nurse Triage 04/01/2025 Encounter Details Date Type Department Care Team ([facility] Contact Info) Description 04/01/2025 Telephone C CHC MED & PEDS [address] [place], [place] [phone] Laura Chapa MD [address] [place] [address] Nurse Triage Social History Tobacco Use Types Packs/Day Years [...] encounter Miscellaneous Notes * Telephone Encounter - Francisca Spencer - 04/01/2025 2:01 PM EDT Symptom: Vision Loss or Change Outcome: Schedule an urgent appointment (within 1 hour) or talk to a nurse or provider soon Reason: Getting worse The caller accepted this outcome. documented in this encounter Plan of Treatment Not on file documented as of this encounter Visit Diagnoses Not on filedocumented in this encounter Additional Health Concerns Assessment Noted Time PHQ-9 Depression Total Score: 9 11/22/19 24 2:46 PM EST documented as of this encounter Care Teams Nurse Auditor Relationship Specialty Start Date End Date Laura Chapa MD [address] [place] [address] PCP - General Family Medicine 10/16/18 documented as of this encounter
--- OUTSIDE RECORDS SUMMARY | 2025-06-24 16:05 | XMS_ITS | Encounter Summary ---
Author Organization [employer] Address [address] [facility] 7t [place] [address] Care Team Providers Care Mexican Food Cook Name Role Phone Laura Chapa MD Primary Care Provider [phone] Encounter Details Date Type Department Care Team (Latest Contact Info) Description 06/19/2025 Travel Social History Tobacco Use Types Packs/Day Years [...] AM EDT documented as of this encounter Functional Status * Over the past 2 weeks, how often have you been bothered by any of the following problems? Question Answer Date of Assessment Author Patient Health Questionnaire-2 Score 0 0 01/2025 10:59 AM EDT Patricia Rosales MA * Little interest or pleasure in doing things Answer Date of Assessment Author Not at all 06/19/2025 10:59 AM DELFINAT Abdiel Rosales MA * Feeling down, depressed, or hopeless Answer Date of Assessment Author Not at all 06/19/2025 10:59 AM EDT Abdiel Rosales MA * Trouble falling or staying asleep, [...] Ahn [place] documented as of this encounter Plan of Treatment Not on file documented as of this encounter Visit Diagnoses Not on filedocumented in this encounter Additional Health Concerns Assessment Noted Time PHQ-9 Depression Total Score: 0 06/19/20 25 10:59 AM EDT documented as of this encounter Care Teams Mexican Food Cook Relationship Specialty Start Date End Date Laura Chapa MD [address] [place] [address] JULIANNA Bellamy [address] PCP - General Family Medicine 10/16/18 documented as of this encounter
--- OUTSIDE RECORDS SUMMARY | 2025-06-24 16:05 | XMS_ITS | Encounter Summary ---
Author Organization [employer] Address [address] [facility] 7t [place] [address] Care Team Providers Care Plastic Boat Patcher Name Role Phone Laura Chapa MD Primary Care Provider [phone] Reason for Visit * Reason Onset Date Comments Call Back Request 08/28/2023 Encounter Details Date Type Department Care Team ([facility] Contact Info) Description 08/28/2023 Telephone [facility] MEDICINE [address] [place] [phone] Laura Chapa MD [address] [place], [place] [phone] Call Back Request Social History Tobacco Use [...] Time PHQ-9 Depression Total Score: 7 08/09/20 11:34 AM EDT documented as of this encounter Care Teams Plastic Boat Patcher Relationship Specialty Start Date End Date Laura Chapa MD [address] [place] [address] PCP - General Family Medicine 10/16/18 documented as of this encounter
--- OUTSIDE RECORDS SUMMARY | 2025-06-24 16:05 | XMS_ITS | Encounter Summary ---
Author Organization [employer] Address [address] [place] [address] 7 [place] [address] Care Team Providers Care Netbackup Engineer Name Role Phone Laura Chapa MD Primary Care Provider [phone] Reason for Visit * Reason Onset Date Comments Nurse Triage 04/21/2025 Encounter Details Date Type Department Care Team ([facility] Contact Info) Description 04/21/2025 Telephone C [facility] [address] [place] [address] Laura Chapa MD [address] [place] [address] Nurse Triage Social History Tobacco Use Types [...] Assessment Author Patient Health Questionnaire-2 Score 0 09/0 01/2025 10:59 AM EDT Patricia Rosales MA [...] Ahn MA documented as of this encounter Miscellaneous Notes * Telephone Encounter - Ailyn Rao RN - 04/21/2025 12:41 PM EDT Triage call Pt reports is having worsened depression. Pt reports is having to move from home of 25 years and doesn't know what to do. Pt wants to just sleep all the time. Pt has a friend who will stay with her today and helps Pt . Pt was crying on phone when started triage and at the end of call Ptwas speaking as usual, no further crying and reports will not go to bed will try to do a few thingsaround the house. Pt is encouraged to come to [facility] today open till 8pm but, requests to come in the morning , hours given , opens at 830am till 8pm and behavioral health is there daily till 4pm. Pt will need help with a place to stay reports no income for new home. Pt is considering will have togo to [facility] if needed. Pt was discharged from [facility] 03/11/25. Pt reports being very forgetful and feels overwhelmed at times. Pt is also given crisis number [phone] if needs to speak with someone. Pt did write this information down. Pt would like to see PCP but, no available apts this week. Pt is advised will forward this information to [facility] nursing team and PCP For follow up prn. Pt a grees with this disposition. Pt is taking prescribed medications as listed on med list on chart andwill continue to take these medications. Pt is advised verse writer will also contact Behavioral health for follow up call. Call to Behavioral health successful and follow up call will be done. Pt agrees. No further questions Pt is given [facility] address, hours of operation and reports will come in the morning. Pt insurance is verified as active. Protocol Used: Depression (Adult) Protocol-Based Disposition: See in Office or Video Visit within 3 Days Video visit not offered Positive Triage Questions: * Depression is getting worse (e.g.,sleeping poorly, less able to do activities of daily living) * Requesting to talk with a counselor (mental health worker, psychiatrist, etc.) * Patient wants to be seen * All higher-acuity triage questions were negative Care Advice Discussed: * Note to Triager - Depression * Depression - Symptoms * Depression - Causes * Depression - Tips for Healthy Living * Depression - Stay Active * Reasons To Call Back - Sadness or depression symptoms persist over 2 weeks - You want to talk with a counselor - You feel like harming yourself - You become worse * Telephone Encounter - Mandy Melgoza - 04/21/2025 11:25 AM EDT Symptom: Depression Outcome: Schedule an urgent appointment (within 4 hours) or talk to a nurse or provider soon Reason: Getting worse The caller accepted this outcome. Contact pt at [phone] if no answer leave message documented in this encounter Plan of Treatment Not on file documented as of this encounter Visit Diagnoses Not on filedocumented in this encounter Additional Health Concerns Assessment Noted Time PHQ-9 Depression Total Score: 9 11/22/19 24 2:46 PM EST documented as of this encounter Care Teams Netbackup Engineer Relationship Specialty Start Date End Date Laura Chapa MD [address] [place] [phone] PCP - General Family Medicine 10/16/18 documented as of this encounter
--- OUTSIDE RECORDS SUMMARY | 2025-06-24 16:05 | XMS_ITS | Clinical Summary ---
Author Organization [address] [place] [address] Address [address] [place] [address] Phone Care Team Providers Care Working Foreman Name Role Phone Unavailable Primary Care Provider Unavailabl e Medications clotrimazole (LOTRIMIN) 1 % cream Apply topically 2 (two) times a day. 30 g 3 07/10/20 25 Active Encounters Date Type Department Care Team Description 06/10/2025 2:30 PM EDT Office Visit [facility] [address] [phone] Roger Bains DPM Tinea pedis of both feet (Primary Dx); Right foot pain; Dermatophytosis of nail; Pain in toe of right foot; Pain in toe of left foot; Difficulty walking; Hammer toe of left foot; Acquired hammer toe of right foot from Last 3 Months Social History Tobacco Use Types Packs/Day Years Used Date Smoking Tobacco: Never Assessed Comments Unknown Sex and Gender Information Value Date Recorded Sex Assigned at Not on file Legal Sex Female 11:50 AM EDT Gender Identity Not on file Sexual Orientation Not on file Plan of Treatment Upcoming Encounters Date Type Department Care Team ([facility] Contact Info) Description 09/15/2025 2:30 PM EST Office Visit [facility] [address] [phone] Roger Bains DPM [address] [phone] Health Maintenance Due Date Last Done Comments Breast Cancer Screening 1955 Zoster Vaccines (1 of 2) 2006 Pneumococcal Vaccine: 50+ Years (2 of 2 - PCV) 02/28/2014 02/28/2013, 03/01/2012 Depression Screening 10/16/2024 Colorectal Cancer Screening: Colonoscopy 02/15/2025 Falls Risk Assessment 02/15/2025 Hepatitis C Screening 02/15/2025 Medicare Annual Wellness Visit 02/15/2025 Osteoporosis Screening (Bone Density Screening) 02/15/2025 Social Influencers of Health Screening 02/15/2025 COVID-19 Vaccine (1 - 2023-2 5 season) 2025 Influenza Vaccine (#1) 2025 DTaP,Tdap,and Td Vaccines (3 - Td or Tdap) 06/02/2026 06/02/2016, 04/25/2016 RSV Immunization Adult Patients (1 - 1-dose 75+ series) 12/17/2031 HIB [...] on patient's age to complete this topic MMR Vaccines Aged Out No longer eligi ble based on patient's age to complete this topic Meningococcal ACWY Vaccine Aged Out N o longer eligible based on patient's age to complete this topic Meningococcal B Vaccine Aged Out No l onger eligible based on patient's age to complete this topic RSV Immunization Patients Under 20 months Aged Out No longer eligible b ased on patient's age to complete this topic Varicella Vaccines Aged Out No longer eligible based on patient's age to complete this topic Insurance #2 [place] [address] MEDICARE MEDICAID - [place]
--- OUTSIDE RECORDS SUMMARY | 2025-06-24 16:05 | XMS_ITS | Encounter Summary ---
Author Organization [employer] Address [address] [facility] [address] [place] [address] Care Team Providers Care Professor Of Latin American Studies Name Role Phone Laura Chapa MD Primary Care Provider [phone] Reason for Visit * Reason Onset Date Comments Med Refill 06/11/2025 Encounter Details Date Type Department Care Team ([facility] st Contact Info) Description 06/11/2025 Telephone [facility] [address] [place] [address] Laura Chapa MD [address] [place] [address] Med Refill Social History Tobacco Use Types [...] Telephone Encounter - Deanna Swift LPN - 06/11/2025 3:52 PM EDT Medication denied by PCP. * Telephone Encounter - Yassine Davison - 06/11/2025 3:50 PM EDT TC from pt requesting medication refill. Medications needing refill: naproxen (Naprosyn) 500 MG tablet To be sent to: [facility] [id number] [place] - [address] documented in this encounter Plan of Treatment Not on file documented as of this encounter Visit Diagnoses Not on filedocumented in this encounter Additional Health Concerns Assessment Noted Time PHQ-9 Depression Total Score: 9 11/22/19 24 2:46 PM EST documented as of this encounter Care Teams Professor Of Latin American Studies Relationship Specialty Start Date End Date Laura Chapa MD [address] [place] [address] PCP - General Family Medicine 10/16/18 documented as of this encounter
--- OUTSIDE RECORDS SUMMARY | 2025-06-24 16:05 | XMS_ITS | Encounter Summary ---
Author Organization [employer] Address [address] [facility] [address] [place] [address] Care Team Providers Care Slack Line Yarder Name Role Phone Laura Chapa MD Primary Care Provider [phone] Reason for Visit * Reason Comments Med Refill Encounter Details Date Type Department Care Team ([facility] Contact Info) Description 09/29/2023 Refill [facility] [address] [place], [place] [phone] Laura Chapa MD [address] [place] [address] Pain Social History Tobacco Use Types Packs/Day [...] documented as of this encounter Care Teams Slack Line Yarder Relationship Specialty Start Date End Date Laura Chapa MD [address] [place] [phone] PCP - General Family Medicine 10/16/18 documented as of this encounter
--- OUTSIDE RECORDS SUMMARY | 2025-06-24 16:05 | XMS_ITS | Encounter Summary ---
Author Organization [employer] Address [address] [facility] [address] [place] [address] Care Team Providers Care Mid Level Practitioner Name Role Phone Laura Chapa MD Primary Care Provider [phone] Encounter Details Date Type Department Care Team ([facility] Contact Info) Description 06/20/2023 Orders Only [facility] [address] [place] [address] Laura Chapa MD [address] [place] [address] Social History Tobacco Use Types Packs/Day Years [...] EDT) Sodium 140 135 - 145 mmol/L [facility] Potassium 3.9 3.3 - 5.1 mmol/L [facility] Chloride 103 96 - 108 mmol/L [facility] Carbon Dioxide 25 22 - 29 mmol/L [facility] Anion Gap 16 12 - 20 [facility] Urea Nitrogen (BUN) 28(H) 9 - 16 mg/dL [facility] Creatinine, Serum 1.47(H) 0.5 - 1.4 mg/dL [facility] Estimated Glomerular Filt Rate 36 [facility] Comment:NOTE: For -Am erican individuals, multiply the result by 1.210.Chronic Kidney Disease: Estimated GFR < 60 mL/min/[id number] Kidney Disease: Estimated GFR < 15 mL/min/1.73m2 Glucose Fasting 93 60 - 99 mg/dL [facility] Calcium 11.2(H) 8.4 - 10.2 mg/dL [facility] 08/09/2023 11:5 3 AM EDT 08/09/2023 2:55 PM EDT us Laura Chapa MD LAB BLOOD ORDERABLES Final Re sult [facility] [address] [place] [phone] * (ABNORMAL) Complete Blood Count Manual Diff (07/29/2023 10:46 PM EDT) White Blood Count 9.0 4.8 - 10.8 X10*3/uL [facility] Red Blood Count 3.42(L) 4.20 - 5.50 X10*6/uL [facility] Hemoglobin 10.6(L) 12.0 - 16.0 g/dl [facility] Hematocrit 30.2(L) 37.0 - 47.0 % [facility] Mean Corpuscular Volume 88.3 80.0 - 98.0 fL [facility] Mean Corpuscular Hemoglobin 31.0 27.0 - 33.0 pg [facility] Mean Corpuscular HGB Conc 35.1(H) 31.0 - 35.0 g/dl [facility] Red Cell Distribution Width 13.2 11.0 - 16.0 % [facility] Platelet Count 307 160 - 400 X10*3/uL [facility] Mean Platelet Volume 10.0 9.4 - 12.3 fL [facility] NRBC Pct Auto 0.0 0.0 - 0.2 /100WBC [facility] NRBC Abs Auto 0.000 0.0 - 0.012 X10*3/uL [facility] Neutrophils % Manual 69 45 - 73 % [facility] Band Neutrophils Percent 5 3 - 5 % [facility] Lymphocytes Percent Manual 18(L) 20 - 40 % [facility] Monocytes Percent Manual 5 2 - 11 % [facility] EOSINOPHILS % MANUAL 1 0 - 4 % [facility] BASOPHILS % MANUAL 1 0 - 2 % [facility] Metamyelocytes % (Manual) 1 % [facility] NEUTROPHILS ABSOLUTE MANUAL 6.7 2.0 - 8.3 X10*3/uL [facility] LYMPHOCYTES ABSOLUTE MANUAL 1.6 1.2 - 4.9 X10*3/uL [facility] MONOCYTES ABSOLUTE MANUAL 0.5 0.1 - 1.2 X10*3/uL [facility] EOSINOPHILS ABSOLUTE MANUAL 0.1 0.0 - 0.4 X10*3/uL [facility] BASOPHILS ABSOLUTE MANUAL 0.1 0.0 - 0.2 X10*3/uL [facility] Absolute Metamyelocytes 0.1 X10*3/uL [facility] Platelet Estimate [facility] Platelet Morphology Comment NORMAL [facility] RBC Morphology [facility] 07/29/2023 10:4 6 PM EDT 07/29/2023 10:54 PM EDT us [facility] External Provider LAB BLO OD ORDERABLES Final Result [facility] [address] [place] [phone] documented in this encounter Visit Diagnoses Not on filedocumented in this encounter Care Teams Mid Level Practitioner Relationship Specialty Start Date End Date Laura Chapa MD [address] [place] [phone] PCP - General Family Medicine 10/16/18 documented as of this encounter
--- OUTSIDE RECORDS SUMMARY | 2025-06-24 16:05 | XMS_ITS | Clinical Summary ---
Author Organization [employer] Address [address] [place] [address] Care Team Providers Care Property Inspector Name Role Phone Laura Chapa MD Primary Care Provider [phone] Allergies Active Allergy Reactions Criticality Noted Date [...] 24 Active Rexulti 1 MG tablet Take 1 tablet by mouth at bedtime. 12/27/19 25 Active midodrine (Proamatine) 5 MG tablet Take 1 tablet by mouth every 6 (six) hours during the day. 12/26/19 25 Active OXcarbazepine (Trileptal) 150 MG tablet Take 1 tablet by mouth 2 times daily. Active Multiple Vitamin (multivitamin) tablet Take 1 [...] per day. 1 each 02/07/20 25 Active Ventolin HFA 108 (90 Base) MCG/ACT inhaler INHALE 1 PUFF EVERY 6 (SIX) HOURS IF NEEDED FOR WHEEZING. 18 g 1 04/17/20 25 Active levothyroxine (Synthroid, Levoxyl) 50 MCG tabletIndications :Acquired hypothyroidism TAKE 1 TABLET (50 MCG) BY MOUTH ONCE PER DAY. 30 tablet 1 04/17/20 25 Active acetaminophen (Tylenol 8 Hour) 650 MG ER tablet Take 1 tablet (650 mg) by mouth every 8 (eight) hours if needed for mild pain for up to 10 days. Do not crush, chew, or split. 90 tablet 5 06/19/20 25 2024 Active Nutritional Supplements (Boost High Protein) liquidIndications :Memory loss Drink 1 bottle daily ( vanilla flavor) 5688 mL 06/19/20 25 Active acetaminophen (Tylenol) 325 MG tablet TAKE 2 TABLETS (650 MG) BY MOUTH EVERY 6 (SIX) HOURS DURING THE DAY. 30 tablet 04/17/20 25 2024 Discontinued(R eorder (will not trigger notification to Pharmacy)) naproxen (Naprosyn) 500 MG tablet Take 1 tablet (500 mg) by mouth Once per day. 30 tablet 05/13/20 25 2024 Discontinued(T herapy completed) acetaminophen (Tylenol) 325 MG tablet TAKE 2 TABLETS BY MOUTH EVERY 6 HOURS DURING THE DAY. 30 tablet 06/10/20 25 2024 Discontinued(I neffective) Active Problems Problem Noted Date Diagnosed Date Arthralgia 05/13/2025 Memory loss 05/13/2025 Blurred vision, bilateral 05/13/2025 Protein-calorie malnutrition, unspecified severi ty 01/13/2025 Shortness [...] intervention , Patient to reach out to [facility] team as needed, Comply with medication , Patient to engage in OP therapy , and Patient to reach out to [facility] as needed. Hypothyroidism 03/22/2016 08/09/2023 Osteopenia 06/03/2014 08/09/2023 Encounters * This document contains information received from the source organization and may not represent a complete record from that organization. Date Type Department Care Team Description 06/24/2025 Orders Only GENERIC EXTERNAL DATA DEPARTMENT Provider, Generic External Data 06/19/2025 11:00 AM EDT Office Visit [facility] [address] [place] [address] Laura Chapa MD Memory loss (Primary Dx); Acquired hypothyroidism; Protein-calorie malnutrition, unspecified severity (CMS/HCC); Bipolar disorder, in partial remission, most recent episode mixed (CMS/HCC) 06/19/2025 Travel 06/17/2025 Telephone [facility] [address] [place] [address] Laura Chapa MD Med Refill 06/17/2025 Telephone [facility] [address] [place] [address] Laura Chapa MD Chart Prep 06/13/2025 Refill [facility] [address] [place] [address] Alee Colin MD 06/12/2025 Telephone [facility] [address] [place] [address] Laura Chapa MD Med Refill 06/11/2025 Telephone [facility] [address] [place] [phone] Laura Chapa MD Med Refill 06/09/2025 Refill [facility] [address] [place] [address] Alee Colin MD 06/09/2025 Refill [facility] [address] [place] [phone] Laura Chapa MD 06/09/2025 Refill [facility] [address] [place] [address] Laura Chapa MD 05/29/2025 Results Follow-Up [facility] [address] [place] [address] Alee Colin MD MR Brain w/o Contrast 05/21/2025 Telephone [facility] [address] [place] [phone] Laura Chapa MD 05/19/2025 Telephone [facility] [address] [place] [phone] Alee Colin MD 05/13/2025 9:30 AM EDT Office Visit [facility] [address] [place] [address] Alee Colin MD Arthralgia, unspecified joint (Primary Dx); Blurred vision, bilateral; Memory loss; Protein-calorie malnutrition, unspecified severity (CMS/HCC); Unsteady gait 05/13/2025 Travel 05/07/2025 Patient Outreach [facility] [address] [place] [phone] Laura Chapa MD Transition Of Care (Tcm) (RE: REQUESTING [place] DISCHARGE ) 05/07/2025 Telephone [facility] [address] [place] [phone] Virginia Chapman, PharmD 05/07/2025 Telephone [facility] [address] [place] [address] Laura Chapa MD Referral 04/29/2025 Telephone [facility] [address] [place] [address] Laura Chapa MD Hospital Follow-up 04/21/2025 Telephone [facility] [address] [place] [address] Ailyn Rao, KADEEM 04/21/2025 Telephone [facility] [address] [place] [address] Laura Chapa MD Nurse Triage 04/17/2025 Telephone [facility] [address] [place] [address] Laura Chapa MD Med Refill 04/16/2025 Refill [facility] [address] [place] [address] Laura Chapa MD Acquired hypothyroidism 04/01/2025 Telephone [facility] [address] [place] [address] Larua Chapa MD Nurse Triage from Last 3 Months Immunizations Immunization Administration Dates Next Due Pneumococcal Polysaccharide PPSV23 02/28/2013, TD (adult), 2 Lf tetanus tox oid, preservative free, adsorbed 06/02/2016 Tdap 04/25/2016 Social History Tobacco Use Types [...] 16 06/19/2025 10:58 AM EDT Oxygen Saturation 98% 05/13/2025 9:26 AM EDT Inhaled Oxygen Concentration - - Weight 46.3 kg (102 lb) 06/19/2025 10:58 AM EDT Height 152.4 cm (5') 06/19/2025 10:58 AM EDT Body Mass Index 19.92 06/19/2025 10:58 AM EDT Plan of Treatment Health Maintenance Due Date Last Done Comments CT Colonography 1955 Colonoscopy 1955 Colorectal Cancer Screening 1955 FIT DNA/Cologuard 1955 FIT 1955 FOBT 1955 SDOH Screening 1955 Sigmoidoscopy 1955 Alcohol/Substance Use Screening 1968 Hepatitis C Screening 1974 Mammogram 1996 Zoster Vaccines (1 of 2) 2006 Pneumococcal Vaccine: 50+ Years (2 of 2 - PCV) 02/28/2014 02/28/2013, 03/01/2012 RSV Patients and Patients Aged 60 years or older (1 - Risk 60-74 years 1-dose series) 2016 Tobacco Screening 08/16/2024 08/16/2023 COVID-19 Vaccine (1 - 2023-2 5 season) 2025 Influenza Vaccine (#1) 2025 DTaP/Tdap/Td Vaccines (3 - T d or Tdap) 06/02/2026 06/02/2016, 04/25/2016 Depression Screening 06/19/2026 06/19/2025, 06/19/2025 HIB Vaccines Aged Out No longer eligi [...] Diagnosis Comments TSH W/REFLEX TO FT4 Routine 06/24/2025 1 :22 PM EDT ETHANOL Routine 06/24/2025 1:22 PM EDT COMPREHENSIVE METABOLIC PANEL Routine 06/24/2025 1:22 PM EDT DRUG MONITOR, PANEL 1, SCREEN, URINE Routine 06/24/2025 1:22 PM EDT URINALYSIS, COMPLETE Routine 06/24/2025 1:22 PM EDT URINALYSIS WITH REFLEX TO MICROSCOPIC Routine 06/24/2025 1:22 PM EDT ACETAMINOPHEN LEVEL Routine 06/24/2025 1 :21 PM EDT SALICYLATE Routine 06/24/2025 1:21 PM EDT COVID-19 ID NOW (DE ANDA) Routine 06/24/2025 1:21 PM EDT CBC WITH AUTO DIFFERENTIAL Routine 06/24/2025 1:21 PM EDT MR BRAIN WO CONTRAST Routine 05/28/2025 4:40 PM EDT Unsteady gait from Last 3 Months Results * Ethanol (06/24/2025 1:22 PM EDT) ETHANOL (MG/DL) IN SER/PLAS <10 mg/dL [facility] Comment:Serum/plasma ethanol results are to be used formedical/treatment purposes only. 06/24/2025 1:22 PM EDT 06/24/2025 1:25 PM EDT Generic External Data Provider LAB BLOOD ORDERAB LES Final Result Performing Organization Address City/[facility]/ZIP Co de Phone Number [facility] [address] [place] [phone] * (ABNORMAL) Urinalysis with Reflex to Microscopic (06/24/2025 1:22 PM EDT) Color Urine Yellow [facility] Appearance Urine Clear [facility] PH 6.5 5.0 - 9.0 [facility] Glucose Urine UA Negative Negative mg/dL [facility] Urine Blood Negative Negative [facility] Specific [place] - Urine 1.015 1.005 - 1.025 [facility] Urine Protein Negative Neg-Trace mg/dL [facility] Urine Ketones Negative Negative mg/dL [facility] Nitrite Urine Negative Negative [facility] Leukocyte Esterase Urine Trace(A) Negative [facility] 06/24/2025 1:22 PM EDT 06/24/2025 1:25 PM EDT us Generic External Data Provider LAB URINE ORDERAB LES Final Result Performing Organization Address City/[facility]/ZIP Co de Phone Number [facility] [address] [place] [address] [phone] * TSH with Reflex to Free T4 (06/24/2025 1:22 PM EDT) TSH reflex Free T4 0.82 0.32 - 4.0 uIU/mL [facility] 06/24/2025 1:22 PM EDT 06/24/2025 1:25 PM EDT us Generic External Data Provider LAB BLOOD ORDERAB LES Final Result [facility] [address] [place] [address] [phone] * Drug Monitoring, Panel 1, Screen, Urine (06/24/2025 1:22 PM EDT) Opiate Screen Urine Not Detected Not Detect [facility] Comment:Opiate cut-off is 30 0 ng/mL.Positive results are unconfirmed and should not be used fornon-medical purposes. Barbiturates, Urine Not Detected Not Detect [facility] Comment:Barbiturate cut-off is 200 ng/mL.Positive results are unconfirmed and should not be used fornon-medical purposes. Phencyclidine Screen Urine Not Detected Not Detect [facility] Comment:Phencyclidine cut-of f is 25 ng/mL.Positive results are unconfirmed and should not be used fornon-medical purposes. Amphetamine Screen Urine Not Detected Not Detect [facility] Comment:Amphetamine cut-off is 1000 ng/mL.Positive results are unconfirmed and should not be used fornon-medical purposes. Benzodiazepines Screen Urine Not Detected Not Detect [facility] Comment:Benzodiazepine cut-o ff is 200 ng/mL.Positive results are unconfirmed and should not be used fornon-medical purposes. Cocaine Screen Urine Not Detected Not Detect [facility] Comment:Cocaine cut-off is 3 00 ng/mL.Positive results are unconfirmed and should not be used fornon-medical purposes. Cannabinoid Screen Urine Not Detected Not Detect [facility] Comment:Cannabinoid cut-off is 50 ng/mL.Positive results are unconfirmed and should not be used fornon-medical purposes. Methadone Screen, Urine Not Detected Not Detect ng/mL [facility] Comment:Methadone cut-off is 300 ng/mL.Positive results are unconfirmed and should not be used fornon-medical purposes. FENTANYL URINE Not Detected Not Detect [facility] Comment:Fentanyl cut-off is 1 ng/mL.Positive results are unconfirmed and should not be used fornon-medical purposes. Oxycodone Urine Screen Not Detected Not Detect ng/mL [facility] Comment:Oxycodone cut-off is 100 ng/mL.Positive results are unconfirmed and should not be used fornon-medical purposes. Buprenorphine Screen Not Detected Not Detect ng/mL [facility] Comment:Buprenorphine cut-of f is 5 ng/mL.Positive results are unconfirmed and should not be used fornon-medical purposes. 06/24/2025 1:22 PM EDT 06/24/2025 1:25 PM EDT us Generic External Data Provider LAB URINE ORDERAB LES Final Result [facility] [address] [place] [phone] [phone] * (ABNORMAL) Urinalysis Complete (06/24/2025 1:22 PM EDT) Color Urine Yellow [facility] Appearance Urine Clear [facility] PH 6.5 5.0 - 9.0 [facility] Glucose Urine UA Negative Negative mg/dL [facility] Urine Blood Negative Negative [facility] Specific [place] - Urine 1.015 1.005 - 1.025 [facility] Urine Protein Negative Neg-Trace mg/dL [facility] Urine Ketones Negative Negative mg/dL [facility] Nitrite Urine Negative Negative [facility] Leukocyte Esterase Urine Trace(A) Negative [facility] RBC Urine 0-2 0 - 2 /HPF [facility] Urine WBC 0-5 0 - 5 /HPF [facility] Urine Squamous Epithelial Cell 0-2 0 - 2 /HPF [facility] Urine Bacteria None Seen None Seen [facility] Hyaline Casts, Urine 0-2 0 - 2 /LPF [facility] 06/24/2025 1:22 PM EDT 06/24/2025 1:25 PM EDT us Generic External Data Provider LAB URINE ORDERAB LES Final Result [facility] [address] [place] [address] [phone] * (ABNORMAL) Comprehensive Metabolic Panel (06/24/2025 1:22 PM EDT) Sodium 147(H) 135 - 145 mmol/L [facility] Potassium 4.1 3.3 - 5.1 mmol/L [facility] Chloride 109(H) 96 - 108 mmol/L [facility] Carbon Dioxide 27 22 - 29 mmol/L [facility] Anion Gap 15 12 - 20 [facility] Urea Nitrogen (BUN) 22(H) 9 - 16 mg/dL [facility] Creatinine, Serum 1.26 0.5 - 1.4 mg/dL [facility] Creatinine Clr Calc Pharmacy 31.2 [facility] Comment:Provided height and weight: 154.94 cm,46.266 kg.eGFR (calculated from the MDRD study equation) and eCrCl(calculated from the Cockcroft-Gault equation) are based ondifferent parameters and may not yield comparable results.If eCrCl result is absurd, please check patient'sheight/weight. Estimated Glomerular Filt Rate 42 [facility] Comment:Chronic Kidney Disea se: Estimated GFR < 60 mL/min/1.98h1Trxzng Kidney Disease: Estimated GFR < 15 mL/min/1.73m2 Glucose 102 60 - 115 mg/dL [facility] Calcium 9.6 8.4 - 10.2 mg/dL [facility] Bilirubin, Total 0.3 0.0 - 1.0 mg/dL [facility] Aspartate Amino Transferase 25 5 - 31 U/L [facility] Alanine Aminotransferase 15 0 - 31 U/L [facility] Total Protein 6.8 6.5 - 8.0 g/dL [facility] Albumin Level 4.8 3.5 - 5.0 g/dL [facility] Alkaline Phosphatase 60 39 - 117 U/L [facility] 06/24/2025 1:22 PM EDT 06/24/2025 1:25 PM EDT us Generic External Data Provider LAB BLOOD ORDERAB LES Final Result Performing Organization Address [facility]/ZIP Co de Phone Number [facility] [address] [place] [address] [phone] * COVID-19 ID NOW (DE ANDA) (06/24/2025 1:21 PM EDT) IDNOW SERIAL# [id number] [facility] COVID-19 TEST Negative Negative [facility] COVID-19 NOTE See Note [facility] Comment: Results are for the identification of SARS-CoV2 RNA. TheSARS-CoV2 RNA is generally detectable in respiratory samplesduring the acute phase of infection. Positive results areindicative of the presence of SARS-CoV-2 RNA; clinicalcorrelation with patient history and other diagnosticinformation is necessary to determine patient infectionstatus. Positive results do not rule out bacterial infectionor co- infection with other viruses.Testing facilities within the [facility] and itsterritories are required to report all positive results tothe appropriate public health authorities.Negative results should be treated as presumptive and, ifinconsistent with clinical signs and symptoms or necessaryfor patient management, should be tested with differentauthorized or cleared molecular tests. Negative results donot preclude SARS-CoV2 RNA infection and should not be usedas the sole basis for patient management decisions. Negativeresults should be considered in the context of a patient'srecent exposures, history and the presence of clinical signsand symptoms consistent with COVID-19.This test has been authorized by the FDA under an EmergencyUse Authorization (EUA) for use by authorized laboratories.Testing performed on the [place] ID NOW utilizing NAAT. 06/24/2025 1:21 PM EDT 06/24/2025 1:25 PM EDT us Generic External Data Provider LAB MOLECULAR JUSTICE GNOSTICS ORDERABLES Final Result [facility] [address] [place] [address] [phone] * (ABNORMAL) CBC auto differential (06/24/2025 1:21 PM EDT) White Blood Count 5.2 4.8 - 10.8 X10*3/uL [facility] Red Blood Count 3.92(L) 4.20 - 5.50 X10*6/uL [facility] Hemoglobin 12.1 12.0 - 16.0 g/dl [facility] Hematocrit 34.7(L) 37.0 - 47.0 % [facility] Mean Corpuscular Volume 88.5 80.0 - 98.0 fL [facility] Mean Corpuscular Hemoglobin 30.9 27.0 - 33.0 pg [facility] Mean Corpuscular HGB Conc 34.9 31.0 - 35.0 g/dl [facility] Red Cell Distribution Width 14.1 11.0 - 16.0 % [facility] Platelet Count 196 160 - 400 X10*3/uL [facility] Mean Platelet Volume 10.5 9.4 - 12.3 fL [facility] Neutrophils Percent Auto 63.7 45 - 73 % [facility] Imm Gran Pct Auto 0.4 0.0 - 0.4 % [facility] Lymphocytes Percent Auto 25.2 20 - 40 % [facility] Monocytes Percent Auto 7.6 2 - 11 % [facility] Eosinophils Percent Auto 2.3 0 - 4 % [facility] Basophils Percent Auto 0.8 0 - 2 % [facility] NRBC Pct Auto 0.0 0.0 - 0.2 /100WBC [facility] Neutrophils Absolute Auto 3.3 2.0 - 8.3 x10*3/uL [facility] Imm Gran Abs Auto 0.02 0.00 - 0.03 X10*3/uL [facility] Lymphocytes Absolute Auto 1.3 1.2 - 4.9 X10*3/uL [facility] Monocytes Absolute Auto 0.4 0.1 - 1.2 X10*3/uL [facility] Eosinophils Absolute Auto 0.1 0.0 - 0.4 X10*3/uL [facility] Basophils Absolute Auto 0.0 0.0 - 0.2 X10*3/uL [facility] NRBC Abs Auto 0.000 0.0 - 0.012 X10*3/uL [facility] 06/24/2025 1:21 PM EDT 06/24/2025 1:25 PM EDT Generic External Data Provider LAB BLOOD ORDERAB LES Final Result Performing Organization Address [facility] Co de Phone Number [facility] [address] [place] [phone] * Acetaminophen level (06/24/2025 1:21 PM EDT) Acetaminophen LAB 4 <30 mcg/mL [facility] 06/24/2025 1:21 PM EDT 06/24/2025 1:25 PM EDT Generic External Data Provider LAB BLOOD ORDERAB LES Final Result Performing Organization Address [facility] Phone Number [facility] [address] [place] [phone] * (ABNORMAL) Salicylate (06/24/2025 1:21 PM EDT) Salicylate <5.0(L) 15 - 30 mg/dL [facility] 06/24/2025 1:21 PM EDT 06/24/2025 1:25 PM EDT Generic External Data Provider LAB BLOOD ORDERAB LES Final Result Performing Organization Address [facility] Co de Phone Number [facility] [address] [place] [phone] * MR Brain w/o Contrast (05/28/2025 4:40 PM EDT) Anatomical Region Laterality Modality Brain Magnetic Resonan ce 05/28/2025 4:40 PM EDT Narrative 05/29/2025 7:18 AM EDT [address] [address] Magnetic Resonance Report Signed Patient: Maria Ines Chan MR#: [id number] 59 : 1955 Acct:[id number] Age/Sex: 69 / F ADM Date: 05/28/25 Loc: HO.MRI Attending Dr: Alee Colin MD Ordering Physician: Alee Colin MD Date of Service: 05/28/25 Procedure(s): MR head/brain wo con Accession Number(s): [id number] cc: Laura Chapa MD; Alee Colin MD EXAMINATION: MR BRAIN WITHOUT IV CONTRAST HISTORY: Unsteady gait TECHNIQUE: Sagittal T1, and axial T1, FLAIR, T2, gradient echo, and diffusion weighted MR images of the brain were obtained. COMPARISON: Correlation is made with an unenhanced head CT dated 12/28/2024. FINDINGS: The pituitary is normal in size. The cerebellar tonsils are normally located. There is mild prominence of the ventricular system and cortical sulci, consistent with atrophy. Scattered periventricular and subcortical white matter hyperintensities are noted on the FLAIR and T2-weighted images which are nonspecific, but often seen in the setting of small vessel ischemic disease. There is no mass effect or midline shift. No intra or extra-axial fluid collections are identified. There are no foci of restricted diffusion. Normal vascular flow voids are noted in the basilar and carotid arteries. The visualized paranasal sinuses are clear. MR/MR head/brain wo con IMPRESSION: No acute intracranial abnormality. Electronically signed by: El Ryan MD 05/29/2025 07:15 AM EDT Dictated By: El Ryan MD Signed By: <Electronically signed by El Ryan MD in OV> 05/29/25 0715 DD/ 1640 TD/TT: 05/28/25 1656 Solution Designer: Procedure Note Donotuseinterpreter, Image - 05/29/2025 [place] [address] Magnetic Resonance Report Signed Patient: Maria Ines ChanMR#: [id number] 59 : 1955cct:[id number] Age/Sex: 69 / FADM Date: 05/28/25 Loc: HO.MRI Attending Dr: Alee Colin MD Ordering Physician: Alee Colin MD Date of Service: 05/28/25 Procedure(s): MR head/brain wo con Accession Number(s): [id number] cc: Laura Chapa MD; Alee Colin MD EXAMINATION: MR BRAIN WITHOUT IV CONTRAST HISTORY: Unsteady gait TECHNIQUE: Sagittal T1, and axial T1, FLAIR, T2, gradient echo, and diffusion weighted MR images of the brain were obtained. COMPARISON: Correlation is made with an unenhanced head CT dated 12/28/2024. FINDINGS: The pituitary is normal in size. The cerebellar tonsils are normally located. There is mild prominence of the ventricular system and cortical sulci, consistent with atrophy. Scattered periventricular and subcortical white matter hyperintensities are noted on the FLAIR and T2-weighted images which are nonspecific, but often seen in the setting of small vessel ischemic disease. There is no mass effect or midline shift. No intra or extra-axial fluid collections are identified. There are no foci of restricted diffusion. Normal vascular flow voids are noted in the basilar and carotid arteries. The visualized paranasal sinuses are clear. MR/MR head/brain wo con IMPRESSION: No acute intracranial abnormality. Electronically signed by: El Ryan MD 05/29/2025 07:15 AM EDT Dictated By: El Ryan MD Signed By: <Electronically signed by El Ryan MD in OV> 05/29/25 0715 DD/ 1640 TD/TT: 05/28/25 1656 Solution Designer: Alee Colin MD IMG MRI PROCEDURES Final Result from Last 3 Months Insurance Member Subscriber Plan / Payer (Ef fective 2023-Present) Name:Maria Ines Chan Member ID:[id number] Relation to Subscriber:Self Name:Maria Ines Chan Subscriber ID:[id number] Payer ID:STATE Group ID:Not on file Type:Medicare Address: [facility].[address] [phone] [facility] * Guarantor: Dustin Maria Ines A Account Type Relation to Patient Date of Phone Billing Address Personal/Family Self [address] Care Teams Property Inspector Relationship Specialty Start Date End Date Laura Chapa MD [address] [place] [phone] PCP - General Family Medicine 10/16/18
--- OUTSIDE RECORDS SUMMARY | 2025-06-24 16:05 | XMS_ITS | Encounter Summary ---
Author Organization [employer] Address [address] [facility] 7[address] [place] [address] Care Team Providers Care Tank Truck Mechanic Name Role Phone Laura Chapa MD Primary Care Provider [phone] Reason for Visit * Reason Comments Med Refill Encounter Details Date Type Department Care Team ([facility] Contact Info) Description 06/13/2025 Refill [facility] P[facility]S [address] [place] [address] Alee Colin MD [address] [place] [address] Social History Tobacco Use Types Packs/Day Years [...] documented as of this encounter Care Teams Tank Truck Mechanic Relationship Specialty Start Date End Date Laura Chapa MD [address] [place] [phone] PCP - General Family Medicine 10/16/18 documented as of this encounter
--- OUTSIDE RECORDS SUMMARY | 2025-06-24 16:05 | XMS_ITS | Encounter Summary ---
Author Organization [employer] Address [address] [place] [address] 7 [place] [address] Care Team Providers Care Electrician Supervisor Airplane Name Role Phone Laura Chapa MD Primary Care Provider [phone] Reason for Visit * Reason Onset Date Comments Med Refill 04/17/2025 Encounter Details Date Type Department Care Team ([facility] Contact Info) Description 04/17/2025 Telephone [facility] MED [facility] PEDS [address] [place] [address] Laura Chapa MD [address] [place] [address] Med Refill Social History Tobacco Use Types [...] Not at all 06/19/2025 10:59 AM Abdiel Anh [place] * Poor appetite or overeating Answer [...] Telephone Encounter - Deanna Swift LPN - 04/17/2025 8:37 AM EDT Medication pended to PCP. * Telephone Encounter - Mandy Melgoza - 04/17/2025 8:30 AM EDT TC from pt requesting medication refill. Medications needing refill : acetaminophen (Tylenol) 325 MG tablet levothyroxine (Synthroid, Levoxyl) 50 MCG tablet To be sent to: [id number] - [place] - [address] documented in this encounter Plan of Treatment Not on file documented as of this encounter Visit Diagnoses Not on filedocumented in this encounter Additional Health Concerns Assessment Noted Time PHQ-9 Depression Total Score: 9 11/22/19 24 2:46 PM EST documented as of this encounter Care Teams Electrician Supervisor Airplane Relationship Specialty Start Date End Date Laura Chapa MD [address] [place] [address] PCP - General Family Medicine 10/16/18 documented as of this encounter
--- OUTSIDE RECORDS SUMMARY | 2025-06-24 16:05 | XMS_ITS | Encounter Summary ---
Author Organization [employer] Address [address] [place] [address] 7 [place] [address] Care Team Providers Care Food Service Steward Name Role Phone Laura Chapa MD Primary Care Provider [phone] Encounter Details Date Type Department Care Team ([facility] Contact Info) Description 08/10/2023 Orders Only [facility] MED & PEDS [address] [place], [place] [phone] Laura Chapa MD [address] [place] [address] Renal insufficiency (Primary Dx) Social History Tobacco [...] documented as of this encounter Care Teams Food Service Steward Relationship Specialty Start Date End Date Laura Chapa MD [address] [place] [phone] PCP - General Family Medicine 10/16/18 documented as of this encounter
--- OUTSIDE RECORDS SUMMARY | 2025-06-24 16:05 | XMS_ITS | Encounter Summary ---
Author Organization [employer] Address [address] [facility] 7t [place] [address] Care Team Providers Care Reconciliation Manager Name Role Phone Laura Chapa MD Primary Care Provider [phone] Encounter Details Date Type Department Care Team ([facility] Contact Info) Description 06/24/2025 Orders Only GENERIC EXTERNAL DATA DEPARTMENT Provider, Generic External Data Social History Tobacco Use Types Packs/Day Years [...] Procedure Name Priority Date/Time Associated Diagnosis Comments ETHANOL Routine 06/24/2025 1:22 PM EDT URINALYSIS WITH REFLEX TO MICROSCOPIC Routine 06/24/2025 1:22 PM EDT TSH W/REFLEX TO FT4 Routine 06/24/2025 1 :22 PM EDT DRUG MONITOR, PANEL 1, SCREEN, URINE Routine 06/24/2025 1:22 PM EDT URINALYSIS, COMPLETE Routine 06/24/2025 1:22 PM EDT COMPREHENSIVE METABOLIC PANEL Routine 06/24/2025 1:22 PM EDT COVID-19 ID NOW (DE ANDA) Routine 06/24/2025 1:21 PM EDT CBC WITH AUTO DIFFERENTIAL Routine 06/24/2025 1:21 PM EDT ACETAMINOPHEN LEVEL Routine 06/24/2025 1 :21 PM EDT SALICYLATE Routine 06/24/2025 1:21 PM EDT documented in this encounter Results * TSH with Reflex to Free T4 (06/24/2025 1:22 PM EDT) TSH reflex Free T4 0.82 0.32 - 4.0 uIU/mL [facility] 06/24/2025 1:22 PM EDT 06/24/2025 1:25 PM EDT us Generic External Data Provider LAB BLOOD ORDERAB LES Final Result Performing Organization Address [facility]/ZIP Co de Phone Number [facility] [address] [place] [phone] * Ethanol (06/24/2025 1:22 PM EDT) ETHANOL (MG/DL) IN SER/PLAS <10 mg/dL [facility] Comment:Serum/plasma ethanol results are to be used formedical/treatment purposes only. 06/24/2025 1:22 PM EDT 06/24/2025 1:25 PM EDT us Generic External Data Provider LAB BLOOD ORDERAB LES Final Result Performing Organization Address City/[facility]/ZIP Co de Phone Number [facility] [address] [place] [phone] * (ABNORMAL) Comprehensive Metabolic Panel (06/24/2025 1:22 PM EDT) Sodium 147(H) 135 - 145 mmol/L [facility] Potassium 4.1 3.3 - 5.1 mmol/L [facility] Chloride 109(H) 96 - 108 mmol/L [facility] Carbon Dioxide 27 22 - 29 mmol/L [facility] Anion Gap 15 12 - 20 [facility] Urea Nitrogen (BUN) 22(H) 9 - 16 mg/dL [facility] Creatinine, Serum 1.26 0.5 - 1.4 mg/dL [facility] Creatinine Clr Calc Pharmacy 31.2 [facility] Comment:Provided height and weight: 154.94 cm,46.266 kg.eGFR (calculated from the MDRD study equation) and eCrCl(calculated from the Cockcroft-Gault equation) are based ondifferent parameters and may not yield comparable results.If eCrCl result is absurd, please check patient'sheight/weight. Estimated Glomerular Filt Rate 42 [facility] Comment:Chronic Kidney Disea se: Estimated GFR < 60 mL/min/[id number] Kidney Disease: Estimated GFR < 15 mL/min/1.73m2 Glucose 102 60 - 115 mg/dL [facility] Calcium 9.6 8.4 - 10.2 mg/dL [facility] Bilirubin, Total 0.3 0.0 - 1.0 mg/dL [facility] Aspartate Amino Transferase 25 5 - 31 U/L [facility] Alanine Aminotransferase 15 0 - 31 U/L [facility] Total Protein 6.8 6.5 - 8.0 g/dL [facility] Albumin Level 4.8 3.5 - 5.0 g/dL [facility] Alkaline Phosphatase 60 39 - 117 U/L [facility] 06/24/2025 1:22 PM EDT 06/24/2025 1:25 PM EDT us Generic External Data Provider LAB BLOOD ORDERAB LES Final Result [facility] [address] [place] [address] [phone] * Drug Monitoring, Panel 1, Screen, Urine (06/24/2025 1:22 PM EDT) Opiate Screen Urine Not Detected Not Detect [facility] Comment:Opiate cut-off is 30 0 ng/mL.Positive results are unconfirmed and should not be used fornon-medical purposes. Barbiturates, Urine Not Detected Not Detect [facility] Comment:Barbiturate cut-off is 200 ng/mL.Positive results are unconfirmed and should not be used fornon-medical purposes. Phencyclidine Screen Urine Not Detected Not Detect [facility] Comment:Phencyclidine cut-of f is 25 ng/mL.Positive results are unconfirmed and should not be used fornon-medical purposes. Amphetamine Screen Urine Not Detected Not Detect [facility] Comment:Amphetamine cut-off is 1000 ng/mL.Positive results are unconfirmed and should not be used fornon-medical purposes. Benzodiazepines Screen Urine Not Detected Not Detect [facility] Comment:Benzodiazepine cut-o ff is 200 ng/mL.Positive results are unconfirmed and should not be used fornon-medical purposes. Cocaine Screen Urine Not Detected Not Detect [facility] Comment:Cocaine cut-off is 3 00 ng/mL.Positive results are unconfirmed and should not be used fornon-medical purposes. Cannabinoid Screen Urine Not Detected Not Detect [facility] Comment:Cannabinoid cut-off is 50 ng/mL.Positive results are unconfirmed and should not be used fornon-medical purposes. Methadone Screen, Urine Not Detected Not Detect ng/mL [facility] Comment:Methadone cut-off is 300 ng/mL.Positive results are unconfirmed and should not be used fornon-medical purposes. FENTANYL URINE Not Detected Not Detect [facility] Comment:Fentanyl cut-off is 1 ng/mL.Positive results are unconfirmed and should not be used fornon-medical purposes. Oxycodone Urine Screen Not Detected Not Detect ng/mL [facility] Comment:Oxycodone cut-off is 100 ng/mL.Positive results are unconfirmed and should not be used fornon-medical purposes. Buprenorphine Screen Not Detected Not Detect ng/mL [facility] Comment:Buprenorphine cut-of f is 5 ng/mL.Positive results are unconfirmed and should not be used fornon-medical purposes. 06/24/2025 1:22 PM EDT 06/24/2025 1:25 PM EDT us Generic External Data Provider LAB URINE ORDERAB LES Final Result Performing Organization Address [facility]/ZIP Co de Phone Number [facility] [address] [place] [phone] * (ABNORMAL) Urinalysis Complete (06/24/2025 1:22 PM EDT) Color Urine Yellow [facility] Appearance Urine Clear [facility] PH 6.5 5.0 - 9.0 [facility] Glucose Urine UA Negative Negative mg/dL [facility] Urine Blood Negative Negative [facility] Specific [place] - Urine 1.015 1.005 - 1.025 [facility] Urine Protein Negative Neg-Trace mg/dL [facility] Urine Ketones Negative Negative mg/dL [facility] Nitrite Urine Negative Negative [facility] Leukocyte Esterase Urine Trace(A) Negative [facility] RBC Urine 0-2 0 - 2 /HPF [facility] Urine WBC 0-5 0 - 5 /HPF [facility] Urine Squamous Epithelial Cell 0-2 0 - 2 /HPF [facility] Urine Bacteria None Seen None Seen [facility] Hyaline Casts, Urine 0-2 0 - 2 /LPF [facility] 06/24/2025 1:22 PM EDT 06/24/2025 1:25 PM EDT us Generic External Data Provider LAB URINE ORDERAB LES Final Result Performing Organization Address City/[facility]/ZIP Co de Phone Number [facility] [address] [place] [phone] * (ABNORMAL) Urinalysis with Reflex to Microscopic (06/24/2025 1:22 PM EDT) Color Urine Yellow [facility] Appearance Urine Clear [facility] PH 6.5 5.0 - 9.0 [facility] Glucose Urine UA Negative Negative mg/dL [facility] Urine Blood Negative Negative [facility] Specific [place] - Urine 1.015 1.005 - 1.025 [facility] Urine Protein Negative Neg-Trace mg/dL [facility] Urine Ketones Negative Negative mg/dL [facility] Nitrite Urine Negative Negative [facility] Leukocyte Esterase Urine Trace(A) Negative [facility] 06/24/2025 1:22 PM EDT 06/24/2025 1:25 PM EDT us Generic External Data Provider LAB URINE ORDERAB LES Final Result Performing Organization Address City/[facility]/ZIP Co de Phone Number [facility] [address] [place] [phone] * Acetaminophen level (06/24/2025 1:21 PM EDT) Acetaminophen LAB 4 <30 mcg/mL [facility] 06/24/2025 1:21 PM EDT 06/24/2025 1:25 PM EDT us Generic External Data Provider LAB BLOOD ORDERAB LES Final Result Performing Organization Address City/[facility]/ZIP Co de Phone Number [facility] [address] [place] [phone] * (ABNORMAL) Salicylate (06/24/2025 1:21 PM EDT) Salicylate <5.0(L) 15 - 30 mg/dL [facility] 06/24/2025 1:21 PM EDT 06/24/2025 1:25 PM EDT us Generic External Data Provider LAB BLOOD ORDERAB LES Final Result Performing Organization Address [facility] Co de Phone Number [facility] [address] [place] [phone] * COVID-19 ID NOW (DE ANDA) (06/24/2025 1:21 PM EDT) IDNOW SERIAL# [id number] [facility] COVID-19 TEST Negative Negative [facility] COVID-19 NOTE See Note [facility] Comment: Results are for the identification of SARS-CoV2 RNA. TheSARS-CoV2 RNA is generally detectable in respiratory samplesduring the acute phase of infection. Positive results areindicative of the presence of SARS-CoV-2 RNA; clinicalcorrelation with patient history and other diagnosticinformation is necessary to determine patient infectionstatus. Positive results do not rule out bacterial infectionor co- infection with other viruses.Testing facilities within the [facility] and [facility] are required to report all positive results [...] LAB MOLECULAR JUSTICE GNOSTICS ORDERABLES Final Result Performing Organization Address [facility] Co de Phone Number [facility] [address] [place] [address] [phone] * (ABNORMAL) CBC auto differential (06/24/2025 1:21 PM EDT) White Blood Count 5.2 4.8 - 10.8 X10*3/uL [facility] Red Blood Count 3.92(L) 4.20 - 5.50 X10*6/uL [facility] Hemoglobin 12.1 12.0 - 16.0 g/dl [facility] Hematocrit 34.7(L) 37.0 - 47.0 % [facility] Mean Corpuscular Volume 88.5 80.0 - 98.0 fL [facility] Mean Corpuscular Hemoglobin 30.9 27.0 - 33.0 pg [facility] Mean Corpuscular HGB Conc 34.9 31.0 - 35.0 g/dl [facility] Red Cell Distribution Width 14.1 11.0 - 16.0 % [facility] Platelet Count 196 160 - 400 X10*3/uL [facility] Mean Platelet Volume 10.5 9.4 - 12.3 fL [facility] Neutrophils Percent Auto 63.7 45 - 73 % [facility] Imm Gran Pct Auto 0.4 0.0 - 0.4 % [facility] Lymphocytes Percent Auto 25.2 20 - 40 % [facility] Monocytes Percent Auto 7.6 2 - 11 % [facility] Eosinophils Percent Auto 2.3 0 - 4 % [facility] Basophils Percent Auto 0.8 0 - 2 % [facility] NRBC Pct Auto 0.0 0.0 - 0.2 /100WBC [facility] Neutrophils Absolute Auto 3.3 2.0 - 8.3 x10*3/uL [facility] Imm Gran Abs Auto 0.02 0.00 - 0.03 X10*3/uL [facility] Lymphocytes Absolute Auto 1.3 1.2 - 4.9 X10*3/uL [facility] Monocytes Absolute Auto 0.4 0.1 - 1.2 X10*3/uL [facility] Eosinophils Absolute Auto 0.1 0.0 - 0.4 X10*3/uL [facility] Basophils Absolute Auto 0.0 0.0 - 0.2 X10*3/uL [facility] NRBC Abs Auto 0.000 0.0 - 0.012 X10*3/uL [facility] 06/24/2025 1:21 PM EDT 06/24/2025 1:25 PM EDT us Generic External Data Provider LAB BLOOD ORDERAB LES Final Result [facility] [address] [place] [phone] documented in this encounter Visit Diagnoses Not on filedocumented in this encounter Additional Health Concerns Assessment Noted Time PHQ-9 Depression Total Score: 0 06/19/20 25 10:59 AM EDT documented as of this encounter Care Teams Reconciliation Manager Relationship Specialty Start Date End Date Laura Chapa MD [address] [place] [phone] PCP - General Family Medicine 10/16/18 documented as of this encounter
[2025-06-24 18:43] VITALS: BP 138/62; PULSE 65; RESP 18; TEMP 36.6; O2SAT 98
[2025-06-24 18:46] VITALS: BMI 19.4
--- NOTE | 2025-06-24 19:29 | PC.ADMIT ---
Maria Ines Chan is a 69 y/o female who was admitted to [facility] S1 from the [facility] ED POD on 06/24/25 on a CV for tx of Unspecified depression and anxiety. Utox negative. Per ED assessment pt is feeling increasingly depressed and anxious lately d/t recent life stressors. Pt reports that the rent at her apartment has increased and that she will now be getting evicted because she can't afford to pay it. Pt also had to rehome her parrot that she had for many years. Pt reports having panic attacks because of this. Upon arrival to S1 pt displayed an anxious affect and pleasant mood. Pt was tearful at times when talking about how she was safe on the unit. Pt skin check was unremarkable. Pt VS WNL. Pt reports no recent issues with sleep. Pt reports recent weight loss of 5lbs but reports no change in her appetite. Pt has some teeth that are missing, she wears a mask as she feels embarrassed about this. Pt ambulates with a walker and has a steady gait. Pt is on 5 minute checks per protocol.
[2025-06-24 20:00] VITALS: BP 113/68; PULSE 65; RESP 17; TEMP 36.5; O2SAT 98
[2025-06-24] MEDS: Lidocaine 4 % Patch ADH..PATCH 1 PATCH TRANSDERMA (20:39)
[2025-06-25 08:25] VITALS: BP 111/57; PULSE 79; RESP 16; TEMP 36.3; O2SAT 98
[2025-06-25 08:30] LABS: Hemoglobin A1C 111.6641 umol/L; Total Hemoglobin (HGBA1C) 3289.9985 umol/L
[2025-06-25 08:38] LABS: Alanine Aminotransferase 20 U/L (0-31); Albumin Level 5.1 g/dL (3.5-5.0); Alkaline Phosphatase 70 U/L (39-117); Anion Gap 13 (12-20); Aspartate Amino Transferase 29 U/L (5-31); Blood Urea Nitrogen 20 mg/dL (9-16); Calcium 9.8 mg/dL (8.4-10.2); Carbon Dioxide 28 mmol/L (22-29); Chloride 107 mmol/L (96-108); Cholesterol 228 mg/dL (<200); Creatinine Clr Calc Pharmacy 34.9; Estimated Glomerular Filt Rate 48; HDL Cholesterol 66 mg/dL (>40); Potassium 4.2 mmol/L (3.3-5.1); Sodium 144 mmol/L (135-145); Total Protein 7.3 g/dL (6.5-8.0); Triglycerides 114 mg/dL (<150)
[2025-06-25 08:52] LABS: Thyroid Stimulating Hormone 1.10 uIU/mL (0.32-4.0)
[2025-06-25 09:06] LABS: Folate 15.1 ng/mL (> or = 4.0); Vitamin B12 1251 pg/mL (200-900)
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
[2025-06-25 16:00] VITALS: BP 127/63; PULSE 65
[2025-06-25 20:00] VITALS: BP 140/62; PULSE 80; RESP 16; TEMP 36.5; O2SAT 94
[2025-06-26 08:00] VITALS: BP 117/67; PULSE 81; RESP 16; TEMP 36.7; O2SAT 97
[2025-06-26 08:25] VITALS: BMI 19.5
[2025-06-26 11:00] VITALS: BP 126/60; PULSE 62
--- NOTE | 2025-06-26 14:15 | P.CONHOSP_ITS ---
History of Present Illness Data of Consult Service Date: 06/26/25 Primary Care Provider: Laura Chapa MD HPI Reason for consult: Medical management 69-year-old female with a past medical history of bipolar disorder, PTSD, cognitive impairment, asthma depression, chronic sciatic pain, right hip osteoarthritis and hypothyroidism presented to the ED with increased depression. She denied any SI or HI. CBC, CMP, TSH within. No evidence of urinary tract infection. Tox screen was negative, COVID-19 negative. EKG noted sinus [place] with a rate of 58. On exam she any shortness of breath, CP, abdominal pain or any other concerning symptoms. She is ambulating with a walker in the milieu. Patient is reporting dizziness. Review of Systems 2 Review of Systems: Denies any shortness of breath, chest pain, abdominal pain or discomfort, nausea vomiting or diarrhea. + dizziness. Denies blurred vision, no syncopal episodes, no confusion. [facility] Medical History (Updated 06/26/25 @ 15:32 by Tanya Antonio DNP) Asthma Hypothyroid Bipolar disorder Osteoarthritis of right hip Social History Household Members: Significant Other Housing: House Unable to assess alcohol history related to: Unknown Alcohol intake: former Patient Tobacco Use Status: Tobacco use Unknown Smoked in Last 30 Days: No Use of substances other than those prescribed or required for medical reasons: No Currently Displaying Signs/Symptoms of Drug Intoxication Withdrawal: No Advance Directives: No Advance Directives Information Provided: Yes Do you have thoughts of harming others: None Do you have a plan to hurt others: No Plan Recently lost weight without trying: Yes How much weight loss: 2-13 pounds Nutrition Risks: No Nutritional Risk Patient : No service: No Current occupational status: retired Sexual orientation: Straight/Heterosexual Meds Allergies Allergy/AdvReac Type Severity Reaction Status Date / Time penicillin V Allergy Unknown Unknown Verified 06/24/25 12:34 Active Medications: Current Medications Acetaminophen (Acetaminophen 325 Mg Tablet) 650 mg PO Q6H PRN PRN Reason: Headache/Pain, Scale 1-10 Last Admin: 06/26/25 09:01 Dose: 650 mg Al Hydroxide/Mg Hydroxide (Magnesium Hydrox/Alum Hydrox 30 Ml Oral.Susp) 30 ml PO Q6H PRN PRN Reason: Heartburn/Nausea Albuterol Sulfate (Albuterol Sulfate 90 Mcg 8 Gm Inhaler) 1 puff INHALE QID PRN PRN Reason: wheezing/SOB Brexpiprazole (Brexpiprazole 1 Mg Tablet) 1 mg PO BEDTIME KIRSTIE Last Admin: 06/25/25 21:42 Dose: 1 mg Levothyroxine Sodium (Levothyroxine Sodium 50 Mcg Tablet) 50 mcg PO DAILY@0600 [facility] Last Admin: 06/26/25 05:56 Dose: 50 mcg Lidocaine (Lidocaine 4 % Patch Adh..Patch) 1 patch TRANSDERMA DAILY PRN PRN Reason: Pain Last Admin: 06/24/25 20:39 Dose: 1 patch Magnesium Hydroxide (Milk Of Magnesia 30 Ml Oral.Susp) 30 ml PO DAILY PRN PRN Reason: Constipation Mirtazapine (Mirtazapine 15 Mg Tablet) 15 mg PO BEDTIME [facility] Last Admin: 06/25/25 21:57 Dose: 15 mg Sertraline HCl (Sertraline Hcl 50 Mg Tablet) 50 mg PO DAILY [facility] Tramadol HCl (Tramadol Hcl 50 Mg Tablet) 25 mg PO Q4H PRN PRN Reason: moderate, hip pain Trazodone HCl (Trazodone Hcl 50 Mg Tablet) 50 mg PO BEDTIME PRN PRN Reason: Insomnia Home Medications ?Medication ?Instructions ?Recorded ?Confirmed ?Last Taken ?Type lidocaine 5 % topical patch 1 patch topical DAILY PRN Pain 02/21/25 06/24/25 02/20/25 History oxcarbazepine 150 mg tablet 150 mg PO BID 02/21/2507/1002/20/25 History acetaminophen 650 mg 650 mg PO Q8H PRN Pain 02/2206/24/25 Unknown History tablet,extended release brexpiprazole 1 mg tablet (Rexulti) 1 mg PO BEDTIME 06/24/25 02/20/25 History levothyroxine 50 mcg tablet 50 mcg PO DAILY@0600 02/2206/24/25 02/21/25 History Physical Exam 2 Vital Signs and Narrative: Vital Signs: Last Vital Signs Temp 98.1 F 06/26/25 08:00 Pulse 62 06/26/25 11:00 Resp 16 06/26/25 08:00 BP 126/60 06/26/25 11:00 Pulse Ox 97 06/26/25 08:00 O2 Del Method Room Air 06/26/25 08:00 BMI result Body Mass Index 19.5 CONST: Alert and oriented, in NAD. Well nourished HEENT: Normocephalic, atraumatic, MMM, Eyes clear, Neck supple RESP: Lungs clear, RRR even and regular HEART:,RRR, S1, S2. No murmur, no edema GI:Abdomen Soft NT, ND. + BS times four :Deferred SKIN: Warm dry and intact, no visible lesions or rashes NEURO:CN II-XII Intact bilaterally, Sensation intact. Speech clear PSYCH: Normal affect Results Labs 06/24/25 13:21 06/25/25 08:04 Assessment and Plan (1) Hypothyroid: Status: Acute Plan 69-year-old female with a past medical history of depression, bipolar disorder, PTSD, cognitive impairment, asthma, chronic sciatic pain, right hip osteoarthritis and hypothyroidism admitted to [facility] for further treatment of increased depression. Depression/bipolar disorder/PTSD/cognitive impairment Treatment per psychiatric team Hypothyroidism Recent TSH within normal limits Continue current dose thyroxine Right hip osteoarthritis, chronic sciatic pain Tylenol, lidocaine patches, and tramadol 25 mg as needed Orthostatic hypotension No dehydration, No anemia TEDS stockings, continue to monitor. Eriberto Dee possibly contributing to orthostasis Thank you for allowing me to participate in the care of this patient. We will follow as needed, update medical provider with any concerns or changes in patient's condition.
[2025-06-26 14:30] VITALS: BP 110/62; PULSE 70
--- NOTE | 2025-06-26 15:53 | PM.EVENT ---
Event Note Date of Service: 06/26/25 Event Note: Patient previously on midodrine 5 mg t.i.d. previous admission. Orthostatic hypertension not likely due to Rexulti and Remeron as patient has been on these and orthostatic hypotension was an issue last admission. We will restart midodrine and hold for systolic blood pressure greater than 130 and monitor. Time Spent With Patient Time: Total time managing care of this patient today ____ minutes.
[2025-06-26 17:19] VITALS: BP 132/74
--- NOTE | 2025-06-26 18:14 | HO.PSYCHPN ---
Subjective Subjective Date of Service: 06/26/25 Reason For Visit: SI Subjective Notes: Conditional Voluntary Interim History: Pt slept through the night. She reports she feels more rested today and is glad about this because she had not been sleeping. She denies SI/HI. She reports feeling calmer, and more optimistic after speaking with SW and plan for referral for [facility]. She is orthostatic, seen by hospitalist, restarted midodrine. Added tramadol prn for hip pain. discussed increasing sertraline. Review of Systems Review of Systems No chest pain. No SOB. Dizziness. No abdominal pain. No constipation. No diarrhea. Mental Status Exam Mental Status Exam Narrative: Appearance: wearing hospital gown, thin, somewhat malnourished, in NAD Behavior: cooperative Psychomotor: no agitation or retardation noted, mild cogwheel on right arm. Speech: clear, normal rate/rhythm/volume, spontaneous TP: tangential TC: overwhelmed with impending eviction/homelessness Mood: overwhelmed Affect: congruent SI:none HI: none VH/AH: no overt signs Delusions:none Insight/judgment: impaired x 2. memory/cog: alert, oriented x 4. MOCA back on 12/2024 scored 14/30, difficulties with executive function and visuospatial (2/5), attention, language repetition (0/2)/fluency (0/1), recall (0/5). Her orientation is intact, as well as naming. Showing vascular pattern of cognitive impairment. Diagnostics Vital Signs (24Hr): Vital Signs - 24 hr 06/25/25 20:00 06/26/25 08:00 06/26/25 11:00 Temperature 97.7 F 98.1 F Pulse Rate 80 81 62 Respiratory Rate 16 16 Blood Pressure 140/62 H 117/67 126/60 Pulse Oximetry 94 97 Oxygen Delivery Method Room Air Room Air 06/26/25 14:30 06/26/25 17:19 Temperature Pulse Rate 70 Respiratory Rate Blood Pressure 110/62 132/74 Pulse Oximetry Oxygen Delivery Method BMI result Body Mass Index 19.5 Labs 06/24/25 13:21 06/25/25 08:04 Labs: Laboratory Results - last 48 hr 06/25/25 08:04 Sodium 144 Potassium 4.2 Chloride 107 Carbon Dioxide 28 Anion Gap 13 BUN 20 H Creatinine 1.13 Estim Creat Clear Calc 34.9 Estimated GFR 48 Random Glucose 118 H Estimat Average Glucose 105 Hemoglobin A1c % 5.3 Calcium 9.8 Total Bilirubin 0.7 AST 29 ALT 20 Alkaline Phosphatase 70 Total Protein 7.3 Albumin 5.1 H Triglycerides 114 Cholesterol 228 H LDL Cholesterol, Calc 140 H HDL Cholesterol 66 Vitamin B12 1251 H Folate 15.1 TSH 1.10 Medications Medications Current Medications Acetaminophen (Acetaminophen 325 Mg Tablet) 650 mg PO Q6H PRN PRN Reason: Headache/Pain, Scale 1-10 Last Admin: 06/26/25 09:01 Dose: 650 mg Al Hydroxide/Mg Hydroxide (Magnesium Hydrox/Alum Hydrox 30 Ml Oral.Susp) 30 ml PO Q6H PRN PRN Reason: Heartburn/Nausea Albuterol Sulfate (Albuterol Sulfate 90 Mcg 8 Gm Inhaler) 1 puff INHALE QID PRN PRN Reason: wheezing/SOB Brexpiprazole (Brexpiprazole 1 Mg Tablet) 1 mg PO BEDTIME [facility] Last Admin: 06/25/25 21:42 Dose: 1 mg Levothyroxine Sodium (Levothyroxine Sodium 50 Mcg Tablet) 50 mcg PO DAILY@0600 [facility] Last Admin: 06/26/25 05:56 Dose: 50 mcg Lidocaine (Lidocaine 4 % Patch Adh..Patch) 1 patch TRANSDERMA DAILY PRN PRN Reason: Pain Last Admin: 06/24/25 20:39 Dose: 1 patch Magnesium Hydroxide (Milk Of Magnesia 30 Ml Oral.Susp) 30 ml PO DAILY PRN PRN Reason: Constipation Midodrine (Midodrine Hcl 5 Mg Tablet) 5 mg PO TID@0900,1300,1700 [facility] Last Admin: 06/26/25 17:19 Dose: Not Given Mirtazapine (Mirtazapine 15 Mg Tablet) 15 mg PO BEDTIME [facility] Last Admin: 06/25/25 21:57 Dose: 15 mg Sertraline HCl (Sertraline Hcl 50 Mg Tablet) 50 mg PO DAILY [facility] Tramadol HCl (Tramadol Hcl 50 Mg Tablet) 25 mg PO Q4H PRN PRN Reason: moderate, hip pain Trazodone HCl (Trazodone Hcl 50 Mg Tablet) 50 mg PO BEDTIME PRN PRN Reason: Insomnia Allergies Allergies Allergy/AdvReac Type Severity Reaction Status Date / Time penicillin V Allergy Unknown Unknown Verified 06/24/25 12:34 Assessment & Plan Assessment & Plan (1) Bipolar disorder with depression: Status: Acute Code(s): F31.9 - Bipolar disorder, unspecified (2) Cognitive impairment: Status: Acute Code(s): R41.89 - Other symptoms and signs involving cognitive functions and awareness Assessment and Plan: She completed MOCA on 12/17/2024 scored 14/30, difficulties with executive function and visuospatial (2/5), attention, language repetition (0/2)/fluency (0/1), recall (0/5). Her orientation is intact, as well as naming. Shows vascular pattern of cognitive impairment. ACL scored 5. Plan Ms. Chan is a 69 year-old woman with hx of trauma, hx of bipolar no hx of psychosis or delusions. We discussed starting sertraline for depression. No SI/HI. Will d/c trileptal due to no clear therapeutic benefit. May try to lower rexulti as it may be contributing to ortho hotn. Reason for continued inpatient stay Substantial Risk for: inability to function Time Spent With Patient Time: Total time managing care of this patient today ____ minutes.
[2025-06-26 20:00] VITALS: BP 128/57; PULSE 72; RESP 16; TEMP 36.6; O2SAT 98
[2025-06-27] VITALS (7 sets, daily range): BP systolic 101–142; BP diastolic 62–76; PULSE 62–89; RESP 16; TEMP 36.7–36.9; O2SAT 96–97
--- NOTE | 2025-06-27 17:04 | P.PNPSI_ITS ---
Subjective Subjective Date of Service: 06/27/25 Reason For Visit: SI Subjective Notes: Conditional Voluntary Interim History: Pt slept through the night. She had visit from Carl, which she reports helps her a lot. She is optimistic about going to [facility]. She denies SI/HI. she continues to report dizziness, restarted on midodrine. Will lowered rexulti to 5mg po qhs, increase sertraline to 75mg po daily. No psychosis nor delusions. Review of Systems Review of Systems No chest pain. No SOB. Dizziness. No abdominal pain. No constipation. No diarrhea. Mental Status Exam Mental Status Exam Narrative: Appearance: wearing hospital gown, thin, somewhat malnourished, in NAD Behavior: cooperative Psychomotor: no agitation or retardation noted, mild cogwheel on right arm. Speech: clear, normal rate/rhythm/volume, spontaneous TP: tangential TC: overwhelmed with impending eviction/homelessness Mood: overwhelmed Affect: congruent SI:none HI: none VH/AH: no overt signs Delusions:none Insight/judgment: impaired x 2. memory/cog: alert, oriented x 4. MOCA back on 12/2024 scored 14/30, difficulties with executive function and visuospatial (2/5), attention, language repetition (0/2)/fluency (0/1), recall (0/5). Her orientation is intact, as well as naming. Showing vascular pattern of cognitive impairment. Diagnostics Vital Signs (24Hr): Vital Signs - 24 hr 06/26/25 17:19 06/26/25 20:00 06/27/25 08:00 Temperature 97.8 F 98.4 F Pulse Rate 72 89 Respiratory Rate 16 16 Blood Pressure 132/74 128/57 L 101/64 Pulse Oximetry 98 96 Oxygen Delivery Method Room Air Room Air 06/27/25 08:44 06/27/25 11:00 06/27/25 13:44 Temperature Pulse Rate 62 Respiratory Rate Blood Pressure 101/64 114/63 116/71 Pulse Oximetry Oxygen Delivery Method BMI result Body Mass Index 19.5 Labs 06/24/25 13:21 06/25/25 08:04 Medications Medications Current Medications Acetaminophen (Acetaminophen 325 Mg Tablet) 650 mg PO Q6H PRN PRN Reason: Headache/Pain, Scale 1-10 Last Admin: 06/27/25 09:30 Dose: 650 mg Al Hydroxide/Mg Hydroxide (Magnesium Hydrox/Alum Hydrox 30 Ml Oral.Susp) 30 ml PO Q6H PRN PRN Reason: Heartburn/Nausea Albuterol Sulfate (Albuterol Sulfate 90 Mcg 8 Gm Inhaler) 1 puff INHALE QID PRN PRN Reason: wheezing/SOB Brexpiprazole (Brexpiprazole 1 Mg Tablet) 0.5 mg PO BEDTIME KIRSTIE Levothyroxine Sodium (Levothyroxine Sodium 50 Mcg Tablet) 50 mcg PO DAILY@0600 [facility] Last Admin: 06/27/25 05:58 Dose: 50 mcg Lidocaine (Lidocaine 4 % Patch Adh..Patch) 1 patch TRANSDERMA DAILY PRN PRN Reason: Pain Last Admin: 06/24/25 20:39 Dose: 1 patch Magnesium Hydroxide (Milk Of Magnesia 30 Ml Oral.Susp) 30 ml PO DAILY PRN PRN Reason: Constipation Midodrine (Midodrine Hcl 5 Mg Tablet) 5 mg PO TID@0900,1300,1700 [facility] Last Admin: 06/27/25 13:44 Dose: 5 mg Mirtazapine (Mirtazapine 15 Mg Tablet) 15 mg PO BEDTIME [facility] Last Admin: 06/26/25 20:53 Dose: 15 mg Sertraline HCl (Sertraline Hcl 25 Mg Tablet) 75 mg PO DAILY [facility] Tramadol HCl (Tramadol Hcl 50 Mg Tablet) 25 mg PO Q4H PRN PRN Reason: moderate, hip pain Trazodone HCl (Trazodone Hcl 50 Mg Tablet) 50 mg PO BEDTIME PRN PRN Reason: Insomnia Allergies Allergies Allergy/AdvReac Type Severity Reaction Status Date / Time penicillin V Allergy Unknown Unknown Verified 06/24/25 12:34 Assessment & Plan Assessment & Plan (1) Bipolar disorder with depression: Status: Acute Code(s): F31.9 - Bipolar disorder, unspecified (2) Cognitive impairment: Status: Acute Code(s): R41.89 - Other symptoms and signs involving cognitive functions and awareness Assessment and Plan: She completed MOCA on 12/17/2024 scored 14/30, difficulties with executive function and visuospatial (2/5), attention, language repetition (0/2)/fluency (0/1), recall (0/5). Her orientation is intact, as well as naming. Shows vascular pattern of cognitive impairment. ACL scored 5. Plan Ms. Chan is a 69 year-old woman with hx of trauma, hx of bipolar no hx of psychosis or delusions. We discussed starting sertraline for depression. No SI/HI. Will d/c trileptal due to no clear therapeutic benefit. May try to lower rexulti as it may be contributing to ortho hotn. 06/27 increase sertraline to 75mg po daily. lower rexulti to 0.5mg po qhs. Reason for continued inpatient stay Substantial Risk for: inability to function Time Spent With Patient Time: Total time managing care of this patient today ____ minutes.
[2025-06-28 08:51] VITALS: BP 110/55; PULSE 82; RESP 16; TEMP 36.1; O2SAT 97
[2025-06-28 12:18] VITALS: BP 117/64; PULSE 88
[2025-06-28 14:06] VITALS: BP 105/60
--- NOTE | 2025-06-28 15:14 | P.PNPSI_ITS ---
Subjective Subjective Date of Service: 06/28/25 Reason For Visit: SI Subjective Notes: Conditional Voluntary Healthcare Proxy: No Guardianship: No Interim History: She presents calm, pleasant. Mood improved today after visit from Carl. Had some anxiety but it passed. She had diarrhea yesterday. She doesn't recall breakfast today. Unable to state the date or why she came to the hospital. She is aware of the assisted living plan, which she is in agreement with. Medication Compliance: Yes Review of Systems Acute medical concerns: No Medical Review of Systems: unchanged Review of Systems Constitutional: Reports no additional constitutional complaints Eyes: Reports no additional eye complaints Reports system reviewed and no additional complaints, except as documented Cardiovascular: Reports no additional cardiovascular complaints Respiratory: Reports no additional respiratory complaints Gastrointestinal: Reports change in stool character, Reports diarrhea and Reports loose stools Genitourinary: Reports no additional female genitourinary complaints Musculoskeletal: Reports abnormal gait (walker use) Comments: leg pain Skin/Breast: Reports system reviewed and no additional complaints, except as docu Reports abnormal gait (walker use) Psychiatric: Reports as per HPI Endocrine: Reports no additional endocrine complaints Hematologic/Lymphatic: Reports no additional hematologic/lymphatic complaints Allergic/Immunologic: Reports no additional allergic/immunologic complaints Mental Status Exam Mental Status Exam Patient Appearance: Well Grooomed Patient Orientation: Person and Place Level of Consciousness: Awake Patient Behavior: Appropriate Mood Description: Calm ( better ) Affect Description: Calm Patient Cognition Impaired: Yes Ability to Follow Directions: Excellent Speech Pattern: Clear Memory Description: Remote Impaired and Recent Impaired Hallucinations: None Delusions: Not Present Thought Content: positive for Circumstantial Judgement and Insight: impaired Diagnostics Vital Signs (24Hr): Vital Signs - 24 hr 06/27/25 16:00 06/27/25 17:42 06/27/25 20:00 Temperature 98.1 F Pulse Rate 68 63 Respiratory Rate 16 Blood Pressure 124/76 114/62 142/74 H Pulse Oximetry 97 Oxygen Delivery Method Room Air 06/28/25 08:51 06/28/25 12:18 06/28/25 14:06 Temperature 97 F Pulse Rate 82 88 Respiratory Rate 16 Blood Pressure 110/55 L 117/64 105/60 Pulse Oximetry 97 Oxygen Delivery Method Room Air BMI result Body Mass Index 19.5 Labs 06/24/25 13:21 06/25/25 08:04 Medications Medications Current Medications Acetaminophen (Acetaminophen 325 Mg Tablet) 650 mg PO Q6H PRN PRN Reason: Headache/Pain, Scale 1-10 Last Admin: 06/27/25 17:43 Dose: 650 mg Al Hydroxide/Mg Hydroxide (Magnesium Hydrox/Alum Hydrox 30 Ml Oral.Susp) 30 ml PO Q6H PRN PRN Reason: Heartburn/Nausea Albuterol Sulfate (Albuterol Sulfate 90 Mcg 8 Gm Inhaler) 1 puff INHALE QID PRN PRN Reason: wheezing/SOB Brexpiprazole (Brexpiprazole 1 Mg Tablet) 0.5 mg PO BEDTIME [facility] Last Admin: 06/27/25 20:38 Dose: 0.5 mg Levothyroxine Sodium (Levothyroxine Sodium 50 Mcg Tablet) 50 mcg PO DAILY@0600 [facility] Last Admin: 06/28/25 05:47 Dose: 50 mcg Lidocaine (Lidocaine 4 % Patch Adh..Patch) 1 patch TRANSDERMA DAILY PRN PRN Reason: Pain Last Admin: 06/24/25 20:39 Dose: 1 patch Magnesium Hydroxide (Milk Of Magnesia 30 Ml Oral.Susp) 30 ml PO DAILY PRN PRN Reason: Constipation Midodrine (Midodrine Hcl 5 Mg Tablet) 5 mg PO TID@0900,1300,1700 [facility] Last Admin: 06/28/25 14:06 Dose: 5 mg Mirtazapine (Mirtazapine 15 Mg Tablet) 15 mg PO BEDTIME [facility] Last Admin: 06/27/25 20:38 Dose: 15 mg Sertraline HCl (Sertraline Hcl 25 Mg Tablet) 75 mg PO DAILY [facility] Last Admin: 06/28/25 09:23 Dose: 75 mg Tramadol HCl (Tramadol Hcl 50 Mg Tablet) 25 mg PO Q4H PRN PRN Reason: moderate, hip pain Trazodone HCl (Trazodone Hcl 50 Mg Tablet) 50 mg PO BEDTIME PRN PRN Reason: Insomnia Allergies Allergies Allergy/AdvReac Type Severity Reaction Status Date / Time penicillin V Allergy Unknown Unknown Verified 06/24/25 12:34 Assessment & Plan Assessment & Plan (1) Bipolar disorder with depression: Status: Acute Code(s): F31.9 - Bipolar disorder, unspecified Plan Ms. Chan is a 69 year-old woman hx of Bipolar (although do wander if it is more unipolar depression, hx of trauma and dysphoria). She was brought to [facility] by long time friend Carl due to increase anxious mood, feeling overwhelmed in context of impending eviction. She was here back in 12/2024 with similar presentation including increase anxious mood, feeling overwhelmed due to impending eviction. She is again noted to have difficulty remembering information including the fact that she had drops in BP and was discharged on midodrine, she does not remember this but continues to report feeling dizzy when standing up. She denies SI/HI. No psychosis or delusional content. We discussed risks, benefits and alternative treatment options. We discussed trying sertraline for depression. May consider discontinuing trileptal and rexulti. Monitor ortho VS, may need to restart midodrine. Pt discussed with SW referral to [facility]. (1) Bipolar disorder with depression: Status: Acute Code(s): F31.9 - Bipolar disorder, unspecified (2) Cognitive impairment: Status: Acute Code(s): R41.89 - Other symptoms and signs involving cognitive functions and awareness Assessment and Plan: She completed MOCA on 12/17/2024 scored 14/30, difficulties with executive function and visuospatial (2/5), attention, language repetition (0/2)/fluency (0/1), recall (0/5). Her orientation is intact, as well as naming. Shows vascular pattern of cognitive impairment. ACL scored 5. PLAN 1. Admit to S1, CV, 15 minutes checks for safety 2. start sertraline 25mg po daily, plan to titrate. 3. dc trileptal unclear therapeutic use. may lower rexulti. 4. obtain collateral information 5. Aftercare planning. 06/27 increase sertraline to 75mg po daily. lower rexulti to 0.5mg po qhs. 06/28: no change in plan today Patient educated on: diagnosis and medication risk/benefits Informed Consent: understands Reason for continued inpatient stay Substantial Risk for: inability to function and rapid decompensation Time Spent With Patient Time: Total time managing care of this patient today _15___ minutes.
[2025-06-28 16:25] VITALS: BP 110/59; PULSE 74
[2025-06-28 20:00] VITALS: BP 113/56; PULSE 69; RESP 16; TEMP 36.2; O2SAT 97
[2025-06-29 08:24] VITALS: BP 113/58; PULSE 90; RESP 18; TEMP 35.9; O2SAT 96
[2025-06-29 13:17] VITALS: BP 116/58; PULSE 83
[2025-06-29 16:11] VITALS: BP 116/64; PULSE 75
--- NOTE | 2025-06-29 17:37 | P.PNPSI_ITS ---
Subjective Subjective Date of Service: 06/29/25 Reason For Visit: SI Subjective Notes: Conditional Voluntary Healthcare Proxy: Yes Guardianship: No Medical Problems Affecting Mental Status: No Interim History: Patient was found sitting on her bed in her room. She presented with mildly dysphoric affect, stated that she was feeling a little sad. She reported chronic right hip pain that was a bit increased today. She says she also has been worrying a bit about her living situation. She denies SI/HI/AVH. She denies any immediate concerns about her treatment plan at this time. Medication Compliance: Yes Side effects from medications: No Attending Groups: Yes Review of Systems Acute medical concerns: No Medical Review of Systems: unchanged Review of Systems Review of Systems Yes all other systems are reviewed and are negative Mental Status Exam Mental Status Exam Narrative: Patient Appearance: Well Grooomed Patient Orientation: Person and Place Level of Consciousness: Awake Patient Behavior: Appropriate Mood: a little sad Affect: mildly dysphoric Patient Cognition Impaired: Yes Ability to Follow Directions: Excellent Speech Pattern: Clear Memory Description: Remote Impaired and Recent Impaired Hallucinations: None Delusions: None evinced Thought Content: Circumstantial Judgement and Insight: impaired Diagnostics Vital Signs (24Hr): Vital Signs - 24 hr 06/28/25 20:00 06/29/25 08:24 06/29/25 13:17 Temperature 97.1 F 96.7 F L Pulse Rate 69 90 83 Respiratory Rate 16 18 Blood Pressure 113/56 L 113/58 L 116/58 L Pulse Oximetry 97 96 Oxygen Delivery Method Room Air Room Air 06/29/25 16:11 Temperature Pulse Rate 75 Respiratory Rate Blood Pressure 116/64 Pulse Oximetry Oxygen Delivery Method BMI result Body Mass Index 19.5 Labs 06/24/25 13:21 06/25/25 08:04 Medications Medications Current Medications Acetaminophen (Acetaminophen 325 Mg Tablet) 650 mg PO Q6H PRN PRN Reason: Headache/Pain, Scale 1-10 Last Admin: 06/29/25 09:31 Dose: 650 mg Al Hydroxide/Mg Hydroxide (Magnesium Hydrox/Alum Hydrox 30 Ml Oral.Susp) 30 ml PO Q6H PRN PRN Reason: Heartburn/Nausea Albuterol Sulfate (Albuterol Sulfate 90 Mcg 8 Gm Inhaler) 1 puff INHALE QID PRN PRN Reason: wheezing/SOB Brexpiprazole (Brexpiprazole 1 Mg Tablet) 0.5 mg PO BEDTIME [facility] Last Admin: 06/28/25 19:51 Dose: 0.5 mg Levothyroxine Sodium (Levothyroxine Sodium 50 Mcg Tablet) 50 mcg PO DAILY@0600 [facility] Last Admin: 06/29/25 06:01 Dose: 50 mcg Lidocaine (Lidocaine 4 % Patch Adh..Patch) 1 patch TRANSDERMA DAILY PRN PRN Reason: Pain Last Admin: 06/24/25 20:39 Dose: 1 patch Magnesium Hydroxide (Milk Of Magnesia 30 Ml Oral.Susp) 30 ml PO DAILY PRN PRN Reason: Constipation Midodrine (Midodrine Hcl 5 Mg Tablet) 5 mg PO TID@0900,1300,1700 [facility] Last Admin: 06/29/25 16:13 Dose: 5 mg Mirtazapine (Mirtazapine 15 Mg Tablet) 15 mg PO BEDTIME [facility] Last Admin: 06/28/25 19:51 Dose: 15 mg Sertraline HCl (Sertraline Hcl 25 Mg Tablet) 75 mg PO DAILY [facility] Last Admin: 06/29/25 08:27 Dose: 75 mg Tramadol HCl (Tramadol Hcl 50 Mg Tablet) 25 mg PO Q4H PRN PRN Reason: moderate, hip pain Last Admin: 06/29/25 13:28 Dose: 25 mg Trazodone HCl (Trazodone Hcl 50 Mg Tablet) 50 mg PO BEDTIME PRN PRN Reason: Insomnia Allergies Allergies Allergy/AdvReac Type Severity Reaction Status Date / Time penicillin V Allergy Unknown Unknown Verified 06/24/25 12:34 Assessment & Plan Assessment & Plan (1) Bipolar disorder with depression: Status: Acute Code(s): F31.9 - Bipolar disorder, unspecified Plan Ms. Chan is a 69 year-old woman hx of Bipolar (although do wander if it is more unipolar depression, hx of trauma and dysphoria). She was brought to [facility] by long time friend Carl due to increase anxious mood, feeling overwhelmed in context of impending eviction. She was here back in 12/2024 with similar presentation including increase anxious mood, feeling overwhelmed due to impending eviction. She is again noted to have difficulty remembering information including the fact that she had drops in BP and was discharged on midodrine, she does not remember this but continues to report feeling dizzy when standing up. She denies SI/HI. No psychosis or delusional content. We discussed risks, benefits and alternative treatment options. We discussed trying sertraline for depression. May consider discontinuing trileptal and rexulti. Monitor ortho VS, may need to restart midodrine. Pt discussed with SW referral to [facility]. (1) Bipolar disorder with depression: Status: Acute Code(s): F31.9 - Bipolar disorder, unspecified (2) Cognitive impairment: Status: Acute Code(s): R41.89 - Other symptoms and signs involving cognitive functions and awareness Assessment and Plan: She completed MOCA on 12/17/2024 scored 14/30, difficulties with executive function and visuospatial (2/5), attention, language repetition (0/2)/fluency (0/1), recall (0/5). Her orientation is intact, as well as naming. Shows vascular pattern of cognitive impairment. ACL scored 5. PLAN 1. Admit to S1, CV, 15 minutes checks for safety 2. start sertraline 25mg po daily, plan to titrate. 3. dc trileptal unclear therapeutic use. may lower rexulti. 4. obtain collateral information 5. Aftercare planning. 06/27 increase sertraline to 75mg po daily. lower rexulti to 0.5mg po qhs. 06/28, 06/29: no change in plan today Patient educated on: diagnosis and medication risk/benefits Informed Consent: understands and further education needed Reason for continued inpatient stay Substantial Risk for: inability to function and rapid decompensation Time Spent With Patient Time: Total time managing care of this patient today _15___ minutes.
[2025-06-29 19:53] VITALS: BP 125/64; PULSE 64; RESP 15; TEMP 35.7; O2SAT 95
[2025-06-30 08:40] VITALS: BP 116/58; PULSE 88; RESP 16; TEMP 36.4; O2SAT 96
--- NOTE | 2025-06-30 08:45 | HO.PSYCHPN ---
Subjective Subjective Date of Service: 06/30/25 Reason For Visit: SI Subjective Notes: Conditional Voluntary Interim History: Pt reports sleeping well. She reports two episodes of loose stools, no abdominal pain. She reports no dizziness. She denies SI/HI. She reports feeling better knowing she is going to an [facility]. She has been visible. No behavioral concerns. She is taking medications as prescribed. will monitor to make sure sertraline not causing loose stools. Diagnostics Vital Signs (24Hr): Vital Signs - 24 hr 06/29/25 13:17 06/29/25 16:11 06/29/25 19:53 Temperature 96.2 F L Pulse Rate 83 75 64 Respiratory Rate 15 Blood Pressure 116/58 L 116/64 125/64 Pulse Oximetry 95 Oxygen Delivery Method Room Air BMI result Body Mass Index 19.5 Labs 06/24/25 13:21 06/25/25 08:04 Medications Medications Current Medications Acetaminophen (Acetaminophen 325 Mg Tablet) 650 mg PO Q6H PRN PRN Reason: Headache/Pain, Scale 1-10 Last Admin: 06/29/25 09:31 Dose: 650 mg Al Hydroxide/Mg Hydroxide (Magnesium Hydrox/Alum Hydrox 30 Ml Oral.Susp) 30 ml PO Q6H PRN PRN Reason: Heartburn/Nausea Albuterol Sulfate (Albuterol Sulfate 90 Mcg 8 Gm Inhaler) 1 puff INHALE QID PRN PRN Reason: wheezing/SOB Brexpiprazole (Brexpiprazole 1 Mg Tablet) 0.5 mg PO BEDTIME [facility] Last Admin: 06/29/25 20:28 Dose: 0.5 mg Levothyroxine Sodium (Levothyroxine Sodium 50 Mcg Tablet) 50 mcg PO DAILY@0600 [facility] Last Admin: 06/30/25 06:32 Dose: 50 mcg Lidocaine (Lidocaine 4 % Patch Adh..Patch) 1 patch TRANSDERMA DAILY PRN PRN Reason: Pain Last Admin: 06/24/25 20:39 Dose: 1 patch Magnesium Hydroxide (Milk Of Magnesia 30 Ml Oral.Susp) 30 ml PO DAILY PRN PRN Reason: Constipation Midodrine (Midodrine Hcl 5 Mg Tablet) 5 mg PO TID@0900,1300,1700 [facility] Last Admin: 06/29/25 16:13 Dose: 5 mg Mirtazapine (Mirtazapine 15 Mg Tablet) 15 mg PO BEDTIME [facility] Last Admin: 06/29/25 20:29 Dose: 15 mg Sertraline HCl (Sertraline Hcl 25 Mg Tablet) 75 mg PO DAILY [facility] Last Admin: 06/29/25 08:27 Dose: 75 mg Tramadol HCl (Tramadol Hcl 50 Mg Tablet) 25 mg PO Q4H PRN PRN Reason: moderate, hip pain Last Admin: 06/29/25 13:28 Dose: 25 mg Trazodone HCl (Trazodone Hcl 50 Mg Tablet) 50 mg PO BEDTIME PRN PRN Reason: Insomnia Allergies Allergies Allergy/AdvReac Type Severity Reaction Status Date / Time penicillin V Allergy Unknown Unknown Verified 06/24/25 12:34 Assessment & Plan Assessment & Plan (1) Bipolar disorder with depression: Status: Acute Code(s): F31.9 - Bipolar disorder, unspecified Plan Ms. Chan is a 69 year-old woman hx of Bipolar (although do wander if it is more unipolar depression, hx of trauma and dysphoria). She was brought to [facility] by long time friend Carl due to increase anxious mood, feeling overwhelmed in context of impending eviction. She was here back in 12/2024 with similar presentation including increase anxious mood, feeling overwhelmed due to impending eviction. She is again noted to have difficulty remembering information including the fact that she had drops in BP and was discharged on midodrine, she does not remember this but continues to report feeling dizzy when standing up. She denies SI/HI. No psychosis or delusional content. We discussed risks, benefits and alternative treatment options. We discussed trying sertraline for depression. May consider discontinuing trileptal and rexulti. Monitor ortho VS, may need to restart midodrine. Pt discussed with SW referral to [facility]. (1) Bipolar disorder with depression: Status: Acute Code(s): F31.9 - Bipolar disorder, unspecified (2) Cognitive impairment: Status: Acute Code(s): R41.89 - Other symptoms and signs involving cognitive functions and awareness Assessment and Plan: She completed MOCA on 12/17/2024 scored 14/30, difficulties with executive function and visuospatial (2/5), attention, language repetition (0/2)/fluency (0/1), recall (0/5). Her orientation is intact, as well as naming. Shows vascular pattern of cognitive impairment. ACL scored 5. PLAN 1. Admit to S1, CV, 15 minutes checks for safety 2. start sertraline 25mg po daily, plan to titrate. 3. dc trileptal unclear therapeutic use. may lower rexulti. 4. obtain collateral information 5. Aftercare planning. 06/27 increase sertraline to 75mg po daily. lower rexulti to 0.5mg po qhs. 06/28, 06/29: no change in plan today 06/30 continue tx. loose stools, added immodium. Reason for continued inpatient stay Substantial Risk for: inability to function Time Spent With Patient Time: Total time managing care of this patient today ____ minutes.
[2025-06-30 12:35] VITALS: BP 105/61; PULSE 78
[2025-06-30 17:05] VITALS: BP 111/64; PULSE 87
[2025-06-30 20:00] VITALS: BP 114/60; PULSE 64; RESP 14; TEMP 36.2; O2SAT 95
[2025-07-01 08:15] VITALS: BP 110/67; PULSE 82; RESP 14; TEMP 36.2; O2SAT 94
--- NOTE | 2025-07-01 11:39 | HO.PSYCHPN ---
Subjective Subjective Date of Service: 07/01/25 Reason For Visit: SI Subjective Notes: Conditional Voluntary Interim History: pt reports having one more episode of loose stools. She is not sure if she took imodium or not. She reports feeling less depressed and less overwhelmed. She reports she is sad because roommate left the unit yesterday. She is happy to see many friends coming and visiting her. She denied SI/HI. No behavioral concerns. She denies dizziness. Review of Systems Review of Systems No chest pain. No SOB. Dizziness. No abdominal pain. No constipation. No diarrhea. Yes all other systems are reviewed and are negative Constitutional: Reports no additional constitutional complaints Eyes: Reports no additional eye complaints Reports system reviewed and no additional complaints, except as documented Cardiovascular: Reports no additional cardiovascular complaints Respiratory: Reports no additional respiratory complaints Gastrointestinal: Reports change in stool character, Reports diarrhea and Reports loose stools Musculoskeletal: Reports abnormal gait (walker use) Skin/Breast: Reports system reviewed and no additional complaints, except as docu Reports abnormal gait (walker use) Psychiatric: Reports as per HPI Endocrine: Reports no additional endocrine complaints Hematologic/Lymphatic: Reports no additional hematologic/lymphatic complaints Allergic/Immunologic: Reports no additional allergic/immunologic complaints Mental Status Exam Mental Status Exam Narrative: Appearance: wearing hospital gown, thin, somewhat malnourished, in NAD Behavior: cooperative Psychomotor: no agitation or retardation noted, mild cogwheel on right arm. Speech: clear, normal rate/rhythm/volume, spontaneous TP: tangential TC: overwhelmed with impending eviction/homelessness Mood: overwhelmed Affect: congruent SI:none HI: none VH/AH: no overt signs Delusions:none Insight/judgment: impaired x 2. memory/cog: alert, oriented x 4. MOCA back on 12/2024 scored 14/30, difficulties with executive function and visuospatial (2/5), attention, language repetition (0/2)/fluency (0/1), recall (0/5). Her orientation is intact, as well as naming. Showing vascular pattern of cognitive impairment. Diagnostics Vital Signs (24Hr): Vital Signs - 24 hr 06/30/25 12:35 06/30/25 17:05 06/30/25 20:00 Temperature 97.2 F Pulse Rate 78 87 64 Respiratory Rate 14 Blood Pressure 105/61 111/64 114/60 Pulse Oximetry 95 Oxygen Delivery Method Room Air 07/01/25 08:15 Temperature 97.1 F Pulse Rate 82 Respiratory Rate 14 Blood Pressure 110/67 Pulse Oximetry 94 Oxygen Delivery Method Room Air BMI result Body Mass Index 19.5 Labs 06/24/25 13:21 06/25/25 08:04 Medications Medications Current Medications Acetaminophen (Acetaminophen 325 Mg Tablet) 650 mg PO Q6H PRN PRN Reason: Headache/Pain, Scale 1-10 Last Admin: 06/29/25 09:31 Dose: 650 mg Al Hydroxide/Mg Hydroxide (Magnesium Hydrox/Alum Hydrox 30 Ml Oral.Susp) 30 ml PO Q6H PRN PRN Reason: Heartburn/Nausea Albuterol Sulfate (Albuterol Sulfate 90 Mcg 8 Gm Inhaler) 1 puff INHALE QID PRN PRN Reason: wheezing/SOB Brexpiprazole (Brexpiprazole 1 Mg Tablet) 0.5 mg PO BEDTIME [facility] Last Admin: 06/30/25 20:06 Dose: 0.5 mg Levothyroxine Sodium (Levothyroxine Sodium 50 Mcg Tablet) 50 mcg PO DAILY@0600 [facility] Last Admin: 07/01/25 06:21 Dose: 50 mcg Lidocaine (Lidocaine 4 % Patch Adh..Patch) 1 patch TRANSDERMA DAILY PRN PRN Reason: Pain Last Admin: 06/24/25 20:39 Dose: 1 patch Loperamide HCl (Loperamide Hcl 2 Mg Capsule) 2 mg PO Q4H PRN PRN Reason: loose stools Magnesium Hydroxide (Milk Of Magnesia 30 Ml Oral.Susp) 30 ml PO DAILY PRN PRN Reason: Constipation Midodrine (Midodrine Hcl 5 Mg Tablet) 5 mg PO TID@0900,1300,1700 [facility] Last Admin: 07/01/25 08:27 Dose: 5 mg Mirtazapine (Mirtazapine 15 Mg Tablet) 15 mg PO BEDTIME [facility] Last Admin: 06/30/25 20:06 Dose: 15 mg Sertraline HCl (Sertraline Hcl 25 Mg Tablet) 75 mg PO DAILY [facility] Last Admin: 07/01/25 08:27 Dose: 75 mg Tramadol HCl (Tramadol Hcl 50 Mg Tablet) 25 mg PO Q4H PRN PRN Reason: moderate, hip pain Last Admin: 06/30/25 09:34 Dose: 25 mg Trazodone HCl (Trazodone Hcl 50 Mg Tablet) 50 mg PO BEDTIME PRN PRN Reason: Insomnia Allergies Allergies Allergy/AdvReac Type Severity Reaction Status Date / Time penicillin V Allergy Unknown Unknown Verified 06/24/25 12:34 Assessment & Plan Assessment & Plan (1) Bipolar disorder with depression: Status: Acute Code(s): F31.9 - Bipolar disorder, unspecified Plan Ms. Chan is a 69 year-old woman hx of Bipolar (although do wander if it is more unipolar depression, hx of trauma and dysphoria). She was brought to [facility] by long time friend Carl due to increase anxious mood, feeling overwhelmed in context of impending eviction. She was here back in 12/2024 with similar presentation including increase anxious mood, feeling overwhelmed due to impending eviction. She is again noted to have difficulty remembering information including the fact that she had drops in BP and was discharged on midodrine, she does not remember this but continues to report feeling dizzy when standing up. She denies SI/HI. No psychosis or delusional content. We discussed risks, benefits and alternative treatment options. We discussed trying sertraline for depression. May consider discontinuing trileptal and rexulti. Monitor ortho VS, may need to restart midodrine. Pt discussed with referral to [facility]. (1) Bipolar disorder with depression: Status: Acute Code(s): F31.9 - Bipolar disorder, unspecified (2) Cognitive impairment: Status: Acute Code(s): R41.89 - Other symptoms and signs involving cognitive functions and awareness Assessment and Plan: She completed MOCA on 12/17/2024 scored 14/30, difficulties with executive function and visuospatial (2/5), attention, language repetition (0/2)/fluency (0/1), recall (0/5). Her orientation is intact, as well as naming. Shows vascular pattern of cognitive impairment. ACL scored 5. PLAN 1. Admit to S1, CV, 15 minutes checks for safety 2. start sertraline 25mg po daily, plan to titrate. 3. dc trileptal unclear therapeutic use. may lower rexulti. 4. obtain collateral information 5. Aftercare planning. 06/27 increase sertraline to 75mg po daily. lower rexulti to 0.5mg po qhs. 06/28, 06/29: no change in plan today 06/30 continue tx. loose stools, added immodium. 07/01 continue tx. monitor loose stools as it can be related to sertraline. Reason for continued inpatient stay Substantial Risk for: inability to function Time Spent With Patient Time: Total time managing care of this patient today ____ minutes.
[2025-07-01 17:11] VITALS: BP 119/60; PULSE 76
[2025-07-01 20:00] VITALS: BP 118/58; PULSE 74; RESP 16; TEMP 36.4; O2SAT 97
[2025-07-01] MEDS: Lidocaine 4 % Patch ADH..PATCH 1 PATCH TRANSDERMA (20:58)
[2025-07-02 08:04] VITALS: BP 121/81; PULSE 90; RESP 16; TEMP 36.3; O2SAT 96
[2025-07-02 12:47] VITALS: BP 99/56; PULSE 78
[2025-07-02 16:26] VITALS: BP 123/63; PULSE 83
--- NOTE | 2025-07-02 19:36 | P.PNPSI_ITS ---
Subjective Subjective Date of Service: 07/02/25 Reason For Visit: SI Subjective Notes: Conditional Voluntary Interim History: Pt sleeping well. Pt reports she is feeling anxious. She reports she hopes to find place to go. She reports she was upset because comment made by staff when she asked to speak with provider... pt reports she was told leave her alone. She reports she has not had any loose stools today. She states she thinks this was because she is lactose intolerance and was eating food that make her sick. She denies SI/HI. Review of Systems Review of Systems No chest pain. No SOB. Dizziness. No abdominal pain. No constipation. No diarrhea. Yes all other systems are reviewed and are negative Constitutional: Reports no additional constitutional complaints Eyes: Reports no additional eye complaints Reports system reviewed and no additional complaints, except as documented Cardiovascular: Reports no additional cardiovascular complaints Respiratory: Reports no additional respiratory complaints Gastrointestinal: Reports change in stool character, Reports diarrhea and Reports loose stools Musculoskeletal: Reports abnormal gait (walker use) Skin/Breast: Reports system reviewed and no additional complaints, except as docu Reports abnormal gait (walker use) Psychiatric: Reports as per HPI Endocrine: Reports no additional endocrine complaints Hematologic/Lymphatic: Reports no additional hematologic/lymphatic complaints Allergic/Immunologic: Reports no additional allergic/immunologic complaints Mental Status Exam Mental Status Exam Narrative: Appearance: wearing hospital gown, thin, somewhat malnourished, in NAD Behavior: cooperative Psychomotor: no agitation or retardation noted, mild cogwheel on right arm. Speech: clear, normal rate/rhythm/volume, spontaneous TP: tangential TC: overwhelmed with impending eviction/homelessness Mood: overwhelmed Affect: congruent SI:none HI: none VH/AH: no overt signs Delusions:none Insight/judgment: impaired x 2. memory/cog: alert, oriented x 4. MOCA back on 12/2024 scored 14/30, difficulties with executive function and visuospatial (2/5), attention, language repetition (0/2)/fluency (0/1), recall (0/5). Her orientation is intact, as well as naming. Showing vascular pattern of cognitive impairment. Diagnostics Vital Signs (24Hr): Vital Signs - 24 hr 07/01/25 20:00 07/02/25 08:04 07/02/25 12:47 Temperature 97.6 F 97.3 F Pulse Rate 74 90 78 Respiratory Rate 16 16 Blood Pressure 118/58 L 121/81 99/56 L Pulse Oximetry 97 96 Oxygen Delivery Method Room Air Room Air 07/02/25 16:26 Temperature Pulse Rate 83 Respiratory Rate Blood Pressure 123/63 Pulse Oximetry Oxygen Delivery Method BMI result Body Mass Index 19.5 Labs 06/24/25 13:21 06/25/25 08:04 Medications Medications Current Medications Acetaminophen (Acetaminophen 325 Mg Tablet) 650 mg PO Q6H PRN PRN Reason: Headache/Pain, Scale 1-10 Last Admin: 07/02/25 08:29 Dose: 650 mg Al Hydroxide/Mg Hydroxide (Magnesium Hydrox/Alum Hydrox 30 Ml Oral.Susp) 30 ml PO Q6H PRN PRN Reason: Heartburn/Nausea Albuterol Sulfate (Albuterol Sulfate 90 Mcg 8 Gm Inhaler) 1 puff INHALE QID PRN PRN Reason: wheezing/SOB Brexpiprazole (Brexpiprazole 1 Mg Tablet) 0.5 mg PO BEDTIME [facility] Last Admin: 07/01/25 20:24 Dose: 0.5 mg Levothyroxine Sodium (Levothyroxine Sodium 50 Mcg Tablet) 50 mcg PO DAILY@0600 [facility] Last Admin: 07/02/25 06:10 Dose: 50 mcg Lidocaine (Lidocaine 4 % Patch Adh..Patch) 1 patch TRANSDERMA DAILY PRN PRN Reason: Pain Last Admin: 07/01/25 20:58 Dose: 1 patch Loperamide HCl (Loperamide Hcl 2 Mg Capsule) 2 mg PO Q4H PRN PRN Reason: loose stools Magnesium Hydroxide (Milk Of Magnesia 30 Ml Oral.Susp) 30 ml PO DAILY PRN PRN Reason: Constipation Midodrine (Midodrine Hcl 5 Mg Tablet) 5 mg PO TID@0900,1300,1700 [facility] Last Admin: 07/02/25 16:31 Dose: 5 mg Mirtazapine (Mirtazapine 15 Mg Tablet) 15 mg PO BEDTIME [facility] Last Admin: 07/01/25 20:24 Dose: 15 mg Sertraline HCl (Sertraline Hcl 25 Mg Tablet) 75 mg PO DAILY [facility] Last Admin: 07/02/25 08:29 Dose: 75 mg Tramadol HCl (Tramadol Hcl 50 Mg Tablet) 25 mg PO Q4H PRN PRN Reason: moderate, hip pain Last Admin: 06/30/25 09:34 Dose: 25 mg Trazodone HCl (Trazodone Hcl 50 Mg Tablet) 50 mg PO BEDTIME PRN PRN Reason: Insomnia Allergies Allergies Allergy/AdvReac Type Severity Reaction Status Date / Time penicillin V Allergy Unknown Unknown Verified 06/24/25 12:34 Assessment & Plan Assessment & Plan (1) Bipolar disorder with depression: Status: Acute Code(s): F31.9 - Bipolar disorder, unspecified Plan Ms. Chan is a 69 year-old woman hx of Bipolar (although do wander if it is more unipolar depression, hx of trauma and dysphoria). She was brought to [facility] [place] [facility] by long time friend Carl due to increase anxious mood, feeling overwhelmed in context of impending eviction. She was here back in 12/2024 with similar presentation including increase anxious mood, feeling overwhelmed due to impending eviction. She is again noted to have difficulty remembering information including the fact that she had drops in BP and was discharged on midodrine, she does not remember this but continues to report feeling dizzy when standing up. She denies SI/HI. No psychosis or delusional content. We discussed risks, benefits and alternative treatment options. We discussed trying sertraline for depression. May consider discontinuing trileptal and rexulti. Monitor ortho VS, may need to restart midodrine. Pt discussed with SW referral to [facility]. (1) Bipolar disorder with depression: Status: Acute Code(s): F31.9 - Bipolar disorder, unspecified (2) Cognitive impairment: Status: Acute Code(s): R41.89 - Other symptoms and signs involving cognitive functions and awareness Assessment and Plan: She completed MOCA on 12/17/2024 scored 14/30, difficulties with executive function and visuospatial (2/5), attention, language repetition (0/2)/fluency (0/1), recall (0/5). Her orientation is intact, as well as naming. Shows vascular pattern of cognitive impairment. ACL scored 5. PLAN 1. Admit to S1, CV, 15 minutes checks for safety 2. start sertraline 25mg po daily, plan to titrate. 3. dc trileptal unclear therapeutic use. may lower rexulti. 4. obtain collateral information 5. Aftercare planning. 06/27 increase sertraline to 75mg po daily. lower rexulti to 0.5mg po qhs. 06/28, 06/29: no change in plan today 06/30 continue tx. loose stools, added immodium. 07/01 continue tx. monitor loose stools as it can be related to sertraline. 07/02 continue tx. Reason for continued inpatient stay Substantial Risk for: inability to function Time Spent With Patient Time: Total time managing care of this patient today ____ minutes.
[2025-07-02 20:00] VITALS: BP 123/60; PULSE 70; RESP 16; TEMP 36; O2SAT 96
[2025-07-03 08:35] VITALS: BMI 19.6
[2025-07-03 08:40] VITALS: BP 113/58; PULSE 85; RESP 16; TEMP 36.1; O2SAT 94
--- NOTE | 2025-07-03 09:09 | P.PNPSI_ITS ---
Subjective Subjective Date of Service: 07/03/25 Reason For Visit: SI Subjective Notes: Conditional Voluntary Interim History: Pt slept through the night. Pt reports feeling less anxious. She denies SI/HI. No psychosis or delusions. She is taking medications, denies loose stools. VS stable. denies dizziness. eating well. Review of Systems Review of Systems No chest pain. No SOB. Dizziness. No abdominal pain. No constipation. No diarrhea. Yes all other systems are reviewed and are negative Constitutional: Reports no additional constitutional complaints Eyes: Reports no additional eye complaints Reports system reviewed and no additional complaints, except as documented Cardiovascular: Reports no additional cardiovascular complaints Respiratory: Reports no additional respiratory complaints Gastrointestinal: Reports change in stool character, Reports diarrhea and Reports loose stools Musculoskeletal: Reports abnormal gait (walker use) Skin/Breast: Reports system reviewed and no additional complaints, except as docu Reports abnormal gait (walker use) Psychiatric: Reports as per HPI Endocrine: Reports no additional endocrine complaints Hematologic/Lymphatic: Reports no additional hematologic/lymphatic complaints Allergic/Immunologic: Reports no additional allergic/immunologic complaints Mental Status Exam Mental Status Exam Narrative: Appearance: wearing hospital gown, thin, somewhat malnourished, in NAD Behavior: cooperative Psychomotor: no agitation or retardation noted, mild cogwheel on right arm. Speech: clear, normal rate/rhythm/volume, spontaneous TP: tangential TC: overwhelmed with impending eviction/homelessness Mood: overwhelmed Affect: congruent SI:none HI: none VH/AH: no overt signs Delusions:none Insight/judgment: impaired x 2. memory/cog: alert, oriented x 4. MOCA back on 12/2024 scored 14/30, difficulties with executive function and visuospatial (2/5), attention, language repetition (0/2)/fluency (0/1), recall (0/5). Her orientation is intact, as well as naming. Showing vascular pattern of cognitive impairment. Diagnostics Vital Signs (24Hr): Vital Signs - 24 hr 07/02/25 12:47 07/02/25 16:26 07/02/25 20:00 Temperature 96.8 F Pulse Rate 78 83 70 Respiratory Rate 16 Blood Pressure 99/56 L 123/63 123/60 Pulse Oximetry 96 Oxygen Delivery Method Room Air 07/03/25 08:40 Temperature 97.0 F Pulse Rate 85 Respiratory Rate 16 Blood Pressure 113/58 L Pulse Oximetry 94 Oxygen Delivery Method Room Air BMI result Body Mass Index 19.6 Labs 06/24/25 13:21 06/25/25 08:04 Medications Medications Current Medications Acetaminophen (Acetaminophen 325 Mg Tablet) 650 mg PO Q6H PRN PRN Reason: Headache/Pain, Scale 1-10 Last Admin: 07/02/25 08:29 Dose: 650 mg Al Hydroxide/Mg Hydroxide (Magnesium Hydrox/Alum Hydrox 30 Ml Oral.Susp) 30 ml PO Q6H PRN PRN Reason: Heartburn/Nausea Albuterol Sulfate (Albuterol Sulfate 90 Mcg 8 Gm Inhaler) 1 puff INHALE QID PRN PRN Reason: wheezing/SOB Brexpiprazole (Brexpiprazole 1 Mg Tablet) 0.5 mg PO BEDTIME [facility] Last Admin: 07/02/25 20:36 Dose: 0.5 mg Levothyroxine Sodium (Levothyroxine Sodium 50 Mcg Tablet) 50 mcg PO DAILY@0600 [facility] Last Admin: 07/03/25 05:51 Dose: 50 mcg Lidocaine (Lidocaine 4 % Patch Adh..Patch) 1 patch TRANSDERMA DAILY PRN PRN Reason: Pain Last Admin: 07/01/25 20:58 Dose: 1 patch Loperamide HCl (Loperamide Hcl 2 Mg Capsule) 2 mg PO Q4H PRN PRN Reason: loose stools Magnesium Hydroxide (Milk Of Magnesia 30 Ml Oral.Susp) 30 ml PO DAILY PRN PRN Reason: Constipation Midodrine (Midodrine Hcl 5 Mg Tablet) 5 mg PO TID@0900,1300,1700 [facility] Last Admin: 07/03/25 09:00 Dose: 5 mg Mirtazapine (Mirtazapine 15 Mg Tablet) 15 mg PO BEDTIME [facility] Last Admin: 07/02/25 20:36 Dose: 15 mg Sertraline HCl (Sertraline Hcl 25 Mg Tablet) 75 mg PO DAILY [facility] Last Admin: 07/03/25 08:59 Dose: 75 mg Tramadol HCl (Tramadol Hcl 50 Mg Tablet) 25 mg PO Q4H PRN PRN Reason: moderate, hip pain Last Admin: 06/30/25 09:34 Dose: 25 mg Trazodone HCl (Trazodone Hcl 50 Mg Tablet) 50 mg PO BEDTIME PRN PRN Reason: Insomnia Allergies Allergies Allergy/AdvReac Type Severity Reaction Status Date / Time penicillin V Allergy Unknown Unknown Verified 06/24/25 12:34 Assessment & Plan Assessment & Plan (1) Bipolar disorder with depression: Status: Acute Code(s): F31.9 - Bipolar disorder, unspecified Plan Ms. Chan is a 69 year-old woman hx of Bipolar (although do wander if it is more unipolar depression, hx of trauma and dysphoria). She was brought to [facility] by long time friend Carl due to increase anxious mood, feeling overwhelmed in context of impending eviction. She was here back in 12/2024 with similar presentation including increase anxious mood, feeling overwhelmed due to impending eviction. She is again noted to have difficulty remembering information including the fact that she had drops in BP and was discharged on midodrine, she does not remember this but continues to report feeling dizzy when standing up. She denies SI/HI. No psychosis or delusional content. We discussed risks, benefits and alternative treatment options. We discussed trying sertraline for depression. May consider discontinuing trileptal and rexulti. Monitor ortho VS, may need to restart midodrine. Pt discussed with SW referral to [facility]. (1) Bipolar disorder with depression: Status: Acute Code(s): F31.9 - Bipolar disorder, unspecified (2) Cognitive impairment: Status: Acute Code(s): R41.89 - Other symptoms and signs involving cognitive functions and awareness Assessment and Plan: She completed MOCA on 12/17/2024 scored 14/30, difficulties with executive function and visuospatial (2/5), attention, language repetition (0/2)/fluency (0/1), recall (0/5). Her orientation is intact, as well as naming. Shows vascular pattern of cognitive impairment. ACL scored 5. PLAN 1. Admit to S1, CV, 15 minutes checks for safety 2. start sertraline 25mg po daily, plan to titrate. 3. dc trileptal unclear therapeutic use. may lower rexulti. 4. obtain collateral information 5. Aftercare planning. 06/27 increase sertraline to 75mg po daily. lower rexulti to 0.5mg po qhs. 06/28, 06/29: no change in plan today 06/30 continue tx. loose stools, added immodium. 07/01 continue tx. monitor loose stools as it can be related to sertraline. 07/02 continue tx. 07/03 continue tx. increase sertraline 100mg po daily. Reason for continued inpatient stay Substantial Risk for: inability to function Time Spent With Patient Time: Total time managing care of this patient today ____ minutes.
[2025-07-03 12:46] VITALS: BP 110/57; PULSE 79
[2025-07-03 17:35] VITALS: BP 108/60; PULSE 68
[2025-07-03 20:00] VITALS: BP 118/61; PULSE 69; TEMP 36.2; O2SAT 96
[2025-07-04 08:10] VITALS: BP 116/58; PULSE 78; RESP 14; TEMP 36.7; O2SAT 95
[2025-07-04 12:49] VITALS: BP 115/66; PULSE 74
--- NOTE | 2025-07-04 15:57 | HO.PSYCHPN ---
Subjective Subjective Date of Service: 07/04/25 Reason For Visit: SI Subjective Notes: Conditional Voluntary Interim History: Pt slept through the night. Pt reports feeling less anxious. She denies SI/HI. No psychosis or delusions. She is taking medications, denies loose stools. VS stable. denies dizziness. eating well. Review of Systems Review of Systems No chest pain. No SOB. Dizziness. No abdominal pain. No constipation. No diarrhea. Yes all other systems are reviewed and are negative Constitutional: Reports no additional constitutional complaints Eyes: Reports no additional eye complaints Reports system reviewed and no additional complaints, except as documented Cardiovascular: Reports no additional cardiovascular complaints Respiratory: Reports no additional respiratory complaints Gastrointestinal: Reports change in stool character, Reports diarrhea and Reports loose stools Musculoskeletal: Reports abnormal gait (walker use) Skin/Breast: Reports system reviewed and no additional complaints, except as docu Reports abnormal gait (walker use) Psychiatric: Reports as per HPI Endocrine: Reports no additional endocrine complaints Hematologic/Lymphatic: Reports no additional hematologic/lymphatic complaints Allergic/Immunologic: Reports no additional allergic/immunologic complaints Mental Status Exam Mental Status Exam Narrative: Appearance: wearing hospital gown, thin, somewhat malnourished, in NAD Behavior: cooperative Psychomotor: no agitation or retardation noted, mild cogwheel on right arm. Speech: clear, normal rate/rhythm/volume, spontaneous TP: tangential TC: overwhelmed with impending eviction/homelessness Mood: overwhelmed Affect: congruent SI:none HI: none VH/AH: no overt signs Delusions:none Insight/judgment: impaired x 2. memory/cog: alert, oriented x 4. MOCA back on 12/2024 scored 14/30, difficulties with executive function and visuospatial (2/5), attention, language repetition (0/2)/fluency (0/1), recall (0/5). Her orientation is intact, as well as naming. Showing vascular pattern of cognitive impairment. Diagnostics Vital Signs (24Hr): Vital Signs - 24 hr 07/03/25 17:35 07/03/25 20:00 07/04/25 08:10 Temperature 97.2 F 98.1 F Pulse Rate 68 69 78 Respiratory Rate 14 Blood Pressure 108/60 118/61 116/58 L Pulse Oximetry 96 95 Oxygen Delivery Method Room Air Room Air 07/04/25 12:49 Temperature Pulse Rate 74 Respiratory Rate Blood Pressure 115/66 Pulse Oximetry Oxygen Delivery Method BMI result Body Mass Index 19.6 Labs 06/24/25 13:21 06/25/25 08:04 Medications Medications Current Medications Acetaminophen (Acetaminophen 325 Mg Tablet) 650 mg PO Q6H PRN PRN Reason: Headache/Pain, Scale 1-10 Last Admin: 07/02/25 08:29 Dose: 650 mg Al Hydroxide/Mg Hydroxide (Magnesium Hydrox/Alum Hydrox 30 Ml Oral.Susp) 30 ml PO Q6H PRN PRN Reason: Heartburn/Nausea Albuterol Sulfate (Albuterol Sulfate 90 Mcg 8 Gm Inhaler) 1 puff INHALE QID PRN PRN Reason: wheezing/SOB Brexpiprazole (Brexpiprazole 1 Mg Tablet) 0.5 mg PO BEDTIME [facility] Last Admin: 07/03/25 20:42 Dose: 0.5 mg Levothyroxine Sodium (Levothyroxine Sodium 50 Mcg Tablet) 50 mcg PO DAILY@0600 [facility] Last Admin: 07/04/25 05:56 Dose: 50 mcg Lidocaine (Lidocaine 4 % Patch Adh..Patch) 1 patch TRANSDERMA DAILY PRN PRN Reason: Pain Last Admin: 07/01/25 20:58 Dose: 1 patch Loperamide HCl (Loperamide Hcl 2 Mg Capsule) 2 mg PO Q4H PRN PRN Reason: loose stools Magnesium Hydroxide (Milk Of Magnesia 30 Ml Oral.Susp) 30 ml PO DAILY PRN PRN Reason: Constipation Midodrine (Midodrine Hcl 5 Mg Tablet) 5 mg PO TID@0900,1300,1700 [facility] Last Admin: 07/04/25 12:55 Dose: 5 mg Mirtazapine (Mirtazapine 15 Mg Tablet) 15 mg PO BEDTIME [facility] Last Admin: 07/03/25 20:42 Dose: 15 mg Sertraline HCl (Sertraline Hcl 100 Mg Tablet) 100 mg PO DAILY [facility] Last Admin: 07/04/25 08:38 Dose: 100 mg Tramadol HCl (Tramadol Hcl 50 Mg Tablet) 25 mg PO Q4H PRN PRN Reason: moderate, hip pain Last Admin: 07/04/25 12:54 Dose: 25 mg Trazodone HCl (Trazodone Hcl 50 Mg Tablet) 50 mg PO BEDTIME PRN PRN Reason: Insomnia Allergies Allergies Allergy/AdvReac Type Severity Reaction Status Date / Time penicillin V Allergy Unknown Unknown Verified 06/24/25 12:34 Assessment & Plan Assessment & Plan (1) Bipolar disorder with depression: Status: Acute Code(s): F31.9 - Bipolar disorder, unspecified Plan Ms. Chan is a 69 year-old woman hx of Bipolar (although do wander if it is more unipolar depression, hx of trauma and dysphoria). She was brought to [facility] [place] [facility] by long time friend Carl due to increase anxious mood, feeling overwhelmed in context of impending eviction. She was here back in 12/2024 with similar presentation including increase anxious mood, feeling overwhelmed due to impending eviction. She is again noted to have difficulty remembering information including the fact that she had drops in BP and was discharged on midodrine, she does not remember this but continues to report feeling dizzy when standing up. She denies SI/HI. No psychosis or delusional content. We discussed risks, benefits and alternative treatment options. We discussed trying sertraline for depression. May consider discontinuing trileptal and rexulti. Monitor ortho VS, may need to restart midodrine. Pt discussed with SW referral to [facility]. (1) Bipolar disorder with depression: Status: Acute Code(s): F31.9 - Bipolar disorder, unspecified (2) Cognitive impairment: Status: Acute Code(s): R41.89 - Other symptoms and signs involving cognitive functions and awareness Assessment and Plan: She completed MOCA on 12/17/2024 scored 14/30, difficulties with executive function and visuospatial (2/5), attention, language repetition (0/2)/fluency (0/1), recall (0/5). Her orientation is intact, as well as naming. Shows vascular pattern of cognitive impairment. ACL scored 5. PLAN 1. Admit to S1, CV, 15 minutes checks for safety 2. start sertraline 25mg po daily, plan to titrate. 3. dc trileptal unclear therapeutic use. may lower rexulti. 4. obtain collateral information 5. Aftercare planning. 06/27 increase sertraline to 75mg po daily. lower rexulti to 0.5mg po qhs. 06/28, 06/29: no change in plan today 06/30 continue tx. loose stools, added immodium. 07/01 continue tx. monitor loose stools as it can be related to sertraline. 07/02 continue tx. 07/03 continue tx. increase sertraline 100mg po daily. 07/04 continue tx. Reason for continued inpatient stay Substantial Risk for: inability to function Time Spent With Patient Time: Total time managing care of this patient today ____ minutes.
[2025-07-04 17:26] VITALS: BP 112/59; PULSE 87
[2025-07-04 20:00] VITALS: BP 114/60; PULSE 70; RESP 16; TEMP 36.8; O2SAT 96
[2025-07-05 08:00] VITALS: BP 124/69; PULSE 90; RESP 16; TEMP 36.2; O2SAT 96
[2025-07-05 08:58] VITALS: BP 124/69
--- NOTE | 2025-07-05 10:17 | P.PNPSI_ITS ---
Subjective Subjective Date of Service: 07/05/25 Reason For Visit: SI Interim History: Pt slept through the night. Pt reports feeling less anxious. She denies SI/HI. No psychosis or delusions. She is taking medications. VS stable. denies dizziness. eating well. Review of Systems Review of Systems No chest pain. No SOB. Dizziness. No abdominal pain. No constipation. No diarrhea. Yes all other systems are reviewed and are negative Constitutional: Reports no additional constitutional complaints Eyes: Reports no additional eye complaints Reports system reviewed and no additional complaints, except as documented Cardiovascular: Reports no additional cardiovascular complaints Respiratory: Reports no additional respiratory complaints Gastrointestinal: Reports change in stool character, Reports diarrhea and Reports loose stools Musculoskeletal: Reports abnormal gait (walker use) Skin/Breast: Reports system reviewed and no additional complaints, except as docu Reports abnormal gait (walker use) Psychiatric: Reports as per HPI Endocrine: Reports no additional endocrine complaints Hematologic/Lymphatic: Reports no additional hematologic/lymphatic complaints Allergic/Immunologic: Reports no additional allergic/immunologic complaints Mental Status Exam Mental Status Exam Narrative: Appearance: wearing hospital gown, thin, somewhat malnourished, in NAD Behavior: cooperative Psychomotor: no agitation or retardation noted, mild cogwheel on right arm. Speech: clear, normal rate/rhythm/volume, spontaneous TP: tangential TC: overwhelmed with impending eviction/homelessness Mood: overwhelmed Affect: congruent SI:none HI: none VH/AH: no overt signs Delusions:none Insight/judgment: impaired x 2. memory/cog: alert, oriented x 4. MOCA back on 12/2024 scored 14/30, difficulties with executive function and visuospatial (2/5), attention, language repetition (0/2)/fluency (0/1), recall (0/5). Her orientation is intact, as well as naming. Showing vascular pattern of cognitive impairment. Patient Appearance: Well Grooomed Patient Orientation: Person and Place Level of Consciousness: Awake Patient Behavior: Appropriate Mood Description: Calm ( better ) Affect Description: Calm Patient Cognition Impaired: Yes Ability to Follow Directions: Excellent Speech Pattern: Clear Memory Description: Remote Impaired and Recent Impaired Diagnostics Vital Signs (24Hr): Vital Signs - 24 hr 07/04/25 12:49 07/04/25 17:26 07/04/25 20:00 Temperature 98.2 F Pulse Rate 74 87 70 Respiratory Rate 16 Blood Pressure 115/66 112/59 L 114/60 Pulse Oximetry 96 Oxygen Delivery Method Room Air 07/05/25 08:00 07/05/25 08:58 Temperature 97.2 F Pulse Rate 90 Respiratory Rate 16 Blood Pressure 124/69 124/69 Pulse Oximetry 96 Oxygen Delivery Method Room Air BMI result Body Mass Index 19.6 Labs 06/24/25 13:21 06/25/25 08:04 Medications Medications Current Medications Acetaminophen (Acetaminophen 325 Mg Tablet) 650 mg PO Q6H PRN PRN Reason: Headache/Pain, Scale 1-10 Last Admin: 07/02/25 08:29 Dose: 650 mg Al Hydroxide/Mg Hydroxide (Magnesium Hydrox/Alum Hydrox 30 Ml Oral.Susp) 30 ml PO Q6H PRN PRN Reason: Heartburn/Nausea Albuterol Sulfate (Albuterol Sulfate 90 Mcg 8 Gm Inhaler) 1 puff INHALE QID PRN PRN Reason: wheezing/SOB Brexpiprazole (Brexpiprazole 1 Mg Tablet) 0.5 mg PO BEDTIME [facility] Last Admin: 07/04/25 20:20 Dose: 0.5 mg Levothyroxine Sodium (Levothyroxine Sodium 50 Mcg Tablet) 50 mcg PO DAILY@0600 [facility] Last Admin: 07/05/25 06:11 Dose: 50 mcg Lidocaine (Lidocaine 4 % Patch Adh..Patch) 1 patch TRANSDERMA DAILY PRN PRN Reason: Pain Last Admin: 07/01/25 20:58 Dose: 1 patch Loperamide HCl (Loperamide Hcl 2 Mg Capsule) 2 mg PO Q4H PRN PRN Reason: loose stools Magnesium Hydroxide (Milk Of Magnesia 30 Ml Oral.Susp) 30 ml PO DAILY PRN PRN Reason: Constipation Midodrine (Midodrine Hcl 5 Mg Tablet) 5 mg PO TID@0900,1300,1700 [facility] Last Admin: 07/05/25 08:58 Dose: 5 mg Mirtazapine (Mirtazapine 15 Mg Tablet) 15 mg PO BEDTIME [facility] Last Admin: 07/04/25 20:21 Dose: 15 mg Sertraline HCl (Sertraline Hcl 100 Mg Tablet) 100 mg PO DAILY [facility] Last Admin: 07/05/25 08:59 Dose: 100 mg Tramadol HCl (Tramadol Hcl 50 Mg Tablet) 25 mg PO Q4H PRN PRN Reason: moderate, hip pain Last Admin: 07/04/25 12:54 Dose: 25 mg Trazodone HCl (Trazodone Hcl 50 Mg Tablet) 50 mg PO BEDTIME PRN PRN Reason: Insomnia Allergies Allergies Allergy/AdvReac Type Severity Reaction Status Date / Time penicillin V Allergy Unknown Unknown Verified 06/24/25 12:34 Assessment & Plan Assessment & Plan (1) Bipolar disorder with depression: Status: Acute Code(s): F31.9 - Bipolar disorder, unspecified Plan Ms. Chan is a 69 year-old woman hx of Bipolar (although do wander if it is more unipolar depression, hx of trauma and dysphoria). She was brought to [facility] by long time friend Carl due to increase anxious mood, feeling overwhelmed in context of impending eviction. She was here back in 12/2024 with similar presentation including increase anxious mood, feeling overwhelmed due to impending eviction. She is again noted to have difficulty remembering information including the fact that she had drops in BP and was discharged on midodrine, she does not remember this but continues to report feeling dizzy when standing up. She denies SI/HI. No psychosis or delusional content. We discussed risks, benefits and alternative treatment options. We discussed trying sertraline for depression. May consider discontinuing trileptal and rexulti. Monitor ortho VS, may need to restart midodrine. Pt discussed with SW referral to [facility]. (1) Bipolar disorder with depression: Status: Acute Code(s): F31.9 - Bipolar disorder, unspecified (2) Cognitive impairment: Status: Acute Code(s): R41.89 - Other symptoms and signs involving cognitive functions and awareness Assessment and Plan: She completed MOCA on 12/17/2024 scored 14/30, difficulties with executive function and visuospatial (2/5), attention, language repetition (0/2)/fluency (0/1), recall (0/5). Her orientation is intact, as well as naming. Shows vascular pattern of cognitive impairment. ACL scored 5. PLAN 1. Admit to S1, CV, 15 minutes checks for safety 2. start sertraline 25mg po daily, plan to titrate. 3. dc trileptal unclear therapeutic use. may lower rexulti. 4. obtain collateral information 5. Aftercare planning. 06/27 increase sertraline to 75mg po daily. lower rexulti to 0.5mg po qhs. 06/28, 06/29: no change in plan today 06/30 continue tx. loose stools, added immodium. 07/01 continue tx. monitor loose stools as it can be related to sertraline. 07/02 continue tx. 07/03 continue tx. increase sertraline 100mg po daily. 07/04 continue tx. 07/05: continue current management and treatment plan. Reason for continued inpatient stay Substantial Risk for: inability to function and rapid decompensation Time Spent With Patient Time: Total time managing care of this patient today ____ minutes.
[2025-07-05 12:41] VITALS: BP 106/55
[2025-07-05 17:19] VITALS: BP 123/61
[2025-07-05 20:24] VITALS: BP 134/60; PULSE 72; RESP 16; TEMP 35.8; O2SAT 97
[2025-07-06 07:56] VITALS: BP 115/60; PULSE 87; RESP 19; TEMP 36.6; O2SAT 94
[2025-07-06 08:32] VITALS: BP 115/60
[2025-07-06 13:08] VITALS: BP 105/58; PULSE 75
[2025-07-06 13:19] VITALS: BP 105/58
--- NOTE | 2025-07-06 15:43 | P.PNPSI_ITS ---
Subjective Subjective Date of Service: 07/06/25 Reason For Visit: SI Interim History: Pt says she feels well. Pt reports feeling less anxious. Visible in the milieu mainly for meals. Went to [facility]. She denies SI/HI. No psychosis or delusions noted. She is taking medications. VS stable. denies dizziness. eating well. Review of Systems Review of Systems No chest pain. No SOB. Dizziness. No abdominal pain. No constipation. No diarrhea. Yes all other systems are reviewed and are negative Constitutional: Reports no additional constitutional complaints Eyes: Reports no additional eye complaints Reports system reviewed and no additional complaints, except as documented Cardiovascular: Reports no additional cardiovascular complaints Respiratory: Reports no additional respiratory complaints Gastrointestinal: Reports change in stool character, Reports diarrhea and Reports loose stools Musculoskeletal: Reports abnormal gait (walker use) Skin/Breast: Reports system reviewed and no additional complaints, except as docu Reports abnormal gait (walker use) Psychiatric: Reports as per HPI Endocrine: Reports no additional endocrine complaints Hematologic/Lymphatic: Reports no additional hematologic/lymphatic complaints Allergic/Immunologic: Reports no additional allergic/immunologic complaints Mental Status Exam Mental Status Exam Narrative: Appearance: wearing hospital gown, thin, somewhat malnourished, in NAD Behavior: cooperative Psychomotor: no agitation or retardation noted, mild cogwheel on right arm. Speech: clear, normal rate/rhythm/volume, spontaneous TP: tangential TC: overwhelmed with impending eviction/homelessness Mood: overwhelmed Affect: congruent SI:none HI: none VH/AH: no overt signs Delusions:none Insight/judgment: impaired x 2. memory/cog: alert, oriented x 4. MOCA back on 12/2024 scored 14/30, difficulties with executive function and visuospatial (2/5), attention, language repetition (0/2)/fluency (0/1), recall (0/5). Her orientation is intact, as well as naming. Showing vascular pattern of cognitive impairment. Patient Appearance: Well Grooomed Patient Orientation: Person and Place Level of Consciousness: Awake Patient Behavior: Appropriate Mood Description: Calm ( better ) Affect Description: Calm Patient Cognition Impaired: Yes Ability to Follow Directions: Excellent Speech Pattern: Clear Memory Description: Remote Impaired and Recent Impaired Diagnostics Vital Signs (24Hr): Vital Signs - 24 hr 07/05/25 17:19 07/05/25 20:24 07/06/25 07:56 Temperature 96.4 F L 97.8 F Pulse Rate 72 87 Respiratory Rate 16 19 Blood Pressure 123/61 134/60 115/60 Pulse Oximetry 97 94 Oxygen Delivery Method Room Air Room Air 07/06/25 08:32 07/06/25 13:08 07/06/25 13:19 Temperature Pulse Rate 75 Respiratory Rate Blood Pressure 115/60 105/58 L 105/58 L Pulse Oximetry Oxygen Delivery Method BMI result Body Mass Index 19.6 Labs 06/24/25 13:21 06/25/25 08:04 Medications Medications Current Medications Acetaminophen (Acetaminophen 325 Mg Tablet) 650 mg PO Q6H PRN PRN Reason: Headache/Pain, Scale 1-10 Last Admin: 07/02/25 08:29 Dose: 650 mg Al Hydroxide/Mg Hydroxide (Magnesium Hydrox/Alum Hydrox 30 Ml Oral.Susp) 30 ml PO Q6H PRN PRN Reason: Heartburn/Nausea Albuterol Sulfate (Albuterol Sulfate 90 Mcg 8 Gm Inhaler) 1 puff INHALE QID PRN PRN Reason: wheezing/SOB Brexpiprazole (Brexpiprazole 1 Mg Tablet) 0.5 mg PO BEDTIME [facility] Last Admin: 07/05/25 20:25 Dose: 0.5 mg Levothyroxine Sodium (Levothyroxine Sodium 50 Mcg Tablet) 50 mcg PO DAILY@0600 [facility] Last Admin: 07/06/25 05:33 Dose: 50 mcg Lidocaine (Lidocaine 4 % Patch Adh..Patch) 1 patch TRANSDERMA DAILY PRN PRN Reason: Pain Last Admin: 07/01/25 20:58 Dose: 1 patch Loperamide HCl (Loperamide Hcl 2 Mg Capsule) 2 mg PO Q4H PRN PRN Reason: loose stools Magnesium Hydroxide (Milk Of Magnesia 30 Ml Oral.Susp) 30 ml PO DAILY PRN PRN Reason: Constipation Midodrine (Midodrine Hcl 5 Mg Tablet) 5 mg PO TID@0900,1300,1700 [facility] Last Admin: 07/06/25 13:19 Dose: 5 mg Mirtazapine (Mirtazapine 15 Mg Tablet) 15 mg PO BEDTIME [facility] Last Admin: 07/05/25 20:25 Dose: 15 mg Sertraline HCl (Sertraline Hcl 100 Mg Tablet) 100 mg PO DAILY [facility] Last Admin: 07/06/25 08:32 Dose: 100 mg Tramadol HCl (Tramadol Hcl 50 Mg Tablet) 25 mg PO Q4H PRN PRN Reason: moderate, hip pain Last Admin: 07/05/25 12:02 Dose: 25 mg Trazodone HCl (Trazodone Hcl 50 Mg Tablet) 50 mg PO BEDTIME PRN PRN Reason: Insomnia Allergies Allergies Allergy/AdvReac Type Severity Reaction Status Date / Time penicillin V Allergy Unknown Unknown Verified 06/24/25 12:34 Assessment & Plan Assessment & Plan (1) Bipolar disorder with depression: Status: Acute Code(s): F31.9 - Bipolar disorder, unspecified Plan Ms. Chan is a 69 year-old woman hx of Bipolar (although do wander if it is more unipolar depression, hx of trauma and dysphoria). She was brought to [facility] by long time friend Carl due to increase anxious mood, feeling overwhelmed in context of impending eviction. She was here back in 12/2024 with similar presentation including increase anxious mood, feeling overwhelmed due to impending eviction. She is again noted to have difficulty remembering information including the fact that she had drops in BP and was discharged on midodrine, she does not remember this but continues to report feeling dizzy when standing up. She denies SI/HI. No psychosis or delusional content. We discussed risks, benefits and alternative treatment options. We discussed trying sertraline for depression. May consider discontinuing trileptal and rexulti. Monitor ortho VS, may need to restart midodrine. Pt discussed with referral to [facility]. (1) Bipolar disorder with depression: Status: Acute Code(s): F31.9 - Bipolar disorder, unspecified (2) Cognitive impairment: Status: Acute Code(s): R41.89 - Other symptoms and signs involving cognitive functions and awareness Assessment and Plan: She completed MOCA on 12/17/2024 scored 14/30, difficulties with executive function and visuospatial (2/5), attention, language repetition (0/2)/fluency (0/1), recall (0/5). Her orientation is intact, as well as naming. Shows vascular pattern of cognitive impairment. ACL scored 5. PLAN 1. Admit to S1, CV, 15 minutes checks for safety 2. start sertraline 25mg po daily, plan to titrate. 3. dc trileptal unclear therapeutic use. may lower rexulti. 4. obtain collateral information 5. Aftercare planning. 06/27 increase sertraline to 75mg po daily. lower rexulti to 0.5mg po qhs. 06/28, 06/29: no change in plan today 06/30 continue tx. loose stools, added immodium. 07/01 continue tx. monitor loose stools as it can be related to sertraline. 07/02 continue tx. 07/03 continue tx. increase sertraline 100mg po daily. 07/04 continue tx. 07/05: continue current management and treatment plan. 07/06: continue current management and treatment plan. Reason for continued inpatient stay Substantial Risk for: inability to function and rapid decompensation Time Spent With Patient Time: Total time managing care of this patient today ____ minutes.
[2025-07-06 16:30] VITALS: BP 129/62
[2025-07-06 20:24] VITALS: BP 103/54; PULSE 81; RESP 15; TEMP 36.4; O2SAT 96
[2025-07-07 08:35] VITALS: BP 111/63; PULSE 97; RESP 14; TEMP 36.2; O2SAT 95
--- NOTE | 2025-07-07 09:18 | HO.PSYCHPN ---
Subjective Subjective Date of Service: 07/07/25 Reason For Visit: SI Subjective Notes: Conditional Voluntary Interim History: Pt sleeping through the night. VS stable SBP 107, pt denies dizziness, taking midodrine. Pt also taking sertraline 100mg po daily. No loose stools. She reports feeling less depressed. Review of Systems Review of Systems No chest pain. No SOB. Dizziness. No abdominal pain. No constipation. No diarrhea. Yes all other systems are reviewed and are negative Constitutional: Reports no additional constitutional complaints Eyes: Reports no additional eye complaints Reports system reviewed and no additional complaints, except as documented Cardiovascular: Reports no additional cardiovascular complaints Respiratory: Reports no additional respiratory complaints Gastrointestinal: Reports change in stool character, Reports diarrhea and Reports loose stools Musculoskeletal: Reports abnormal gait (walker use) Skin/Breast: Reports system reviewed and no additional complaints, except as docu Reports abnormal gait (walker use) Psychiatric: Reports as per HPI Endocrine: Reports no additional endocrine complaints Hematologic/Lymphatic: Reports no additional hematologic/lymphatic complaints Allergic/Immunologic: Reports no additional allergic/immunologic complaints Mental Status Exam Mental Status Exam Narrative: Appearance: wearing hospital gown, thin, somewhat malnourished, in NAD Behavior: cooperative Psychomotor: no agitation or retardation noted, mild cogwheel on right arm. Speech: clear, normal rate/rhythm/volume, spontaneous TP: tangential TC: overwhelmed with impending eviction/homelessness Mood: overwhelmed Affect: congruent SI:none HI: none VH/AH: no overt signs Delusions:none Insight/judgment: impaired x 2. memory/cog: alert, oriented x 4. MOCA back on 12/2024 scored 14/30, difficulties with executive function and visuospatial (2/5), attention, language repetition (0/2)/fluency (0/1), recall (0/5). Her orientation is intact, as well as naming. Showing vascular pattern of cognitive impairment. Diagnostics Vital Signs (24Hr): Vital Signs - 24 hr 07/06/25 13:08 07/06/25 13:19 07/06/25 16:30 Temperature Pulse Rate 75 Respiratory Rate Blood Pressure 105/58 L 105/58 L 129/62 Pulse Oximetry Oxygen Delivery Method 07/06/25 20:24 07/07/25 08:35 Temperature 97.5 F 97.2 F Pulse Rate 81 97 Respiratory Rate 15 14 Blood Pressure 103/54 L 111/63 Pulse Oximetry 96 95 Oxygen Delivery Method Room Air Room Air BMI result Body Mass Index 19.6 Labs 06/24/25 13:21 06/25/25 08:04 Medications Medications Current Medications Acetaminophen (Acetaminophen 325 Mg Tablet) 650 mg PO Q6H PRN PRN Reason: Headache/Pain, Scale 1-10 Last Admin: 07/02/25 08:29 Dose: 650 mg Al Hydroxide/Mg Hydroxide (Magnesium Hydrox/Alum Hydrox 30 Ml Oral.Susp) 30 ml PO Q6H PRN PRN Reason: Heartburn/Nausea Albuterol Sulfate (Albuterol Sulfate 90 Mcg 8 Gm Inhaler) 1 puff INHALE QID PRN PRN Reason: wheezing/SOB Brexpiprazole (Brexpiprazole 1 Mg Tablet) 0.5 mg PO BEDTIME [facility] Last Admin: 07/06/25 20:22 Dose: 0.5 mg Levothyroxine Sodium (Levothyroxine Sodium 50 Mcg Tablet) 50 mcg PO DAILY@0600 [facility] Last Admin: 07/07/25 05:04 Dose: 50 mcg Lidocaine (Lidocaine 4 % Patch Adh..Patch) 1 patch TRANSDERMA DAILY PRN PRN Reason: Pain Last Admin: 07/01/25 20:58 Dose: 1 patch Loperamide HCl (Loperamide Hcl 2 Mg Capsule) 2 mg PO Q4H PRN PRN Reason: loose stools Magnesium Hydroxide (Milk Of Magnesia 30 Ml Oral.Susp) 30 ml PO DAILY PRN PRN Reason: Constipation Midodrine (Midodrine Hcl 5 Mg Tablet) 5 mg PO TID@0900,1300,1700 [facility] Last Admin: 07/07/25 09:14 Dose: 5 mg Mirtazapine (Mirtazapine 15 Mg Tablet) 15 mg PO BEDTIME [facility] Last Admin: 07/06/25 20:22 Dose: 15 mg Sertraline HCl (Sertraline Hcl 100 Mg Tablet) 100 mg PO DAILY [facility] Last Admin: 07/07/25 09:15 Dose: 100 mg Tramadol HCl (Tramadol Hcl 50 Mg Tablet) 25 mg PO Q4H PRN PRN Reason: moderate, hip pain Last Admin: 07/07/25 09:14 Dose: 25 mg Trazodone HCl (Trazodone Hcl 50 Mg Tablet) 50 mg PO BEDTIME PRN PRN Reason: Insomnia Allergies Allergies Allergy/AdvReac Type Severity Reaction Status Date / Time penicillin V Allergy Unknown Unknown Verified 06/24/25 12:34 Assessment & Plan Assessment & Plan (1) Bipolar disorder with depression: Status: Acute Code(s): F31.9 - Bipolar disorder, unspecified Plan Ms. Chan is a 69 year-old woman hx of Bipolar (although do wander if it is more unipolar depression, hx of trauma and dysphoria). She was brought [place] [facility] [place] long time friend Carl due to increase anxious mood, feeling overwhelmed in context of impending eviction. She was here back in 12/2024 with similar presentation including increase anxious mood, feeling overwhelmed due to impending eviction. She is again noted to have difficulty remembering information including the fact that she had drops in BP and was discharged on midodrine, she does not remember this but continues to report feeling dizzy when standing up. She denies SI/HI. No psychosis or delusional content. We discussed risks, benefits and alternative treatment options. We discussed trying sertraline for depression. May consider discontinuing trileptal and rexulti. Monitor ortho VS, may need to restart midodrine. Pt discussed with SW referral to [facility]. (1) Bipolar disorder with depression: Status: Acute Code(s): F31.9 - Bipolar disorder, unspecified (2) Cognitive impairment: Status: Acute Code(s): R41.89 - Other symptoms and signs involving cognitive functions and awareness Assessment and Plan: She completed MOCA on 12/17/2024 scored 14/30, difficulties with executive function and visuospatial (2/5), attention, language repetition (0/2)/fluency (0/1), recall (0/5). Her orientation is intact, as well as naming. Shows vascular pattern of cognitive impairment. ACL scored 5. PLAN 1. Admit to S1, CV, 15 minutes checks for safety 2. start sertraline 25mg po daily, plan to titrate. 3. dc trileptal unclear therapeutic use. may lower rexulti. 4. obtain collateral information 5. Aftercare planning. 06/27 increase sertraline to 75mg po daily. lower rexulti to 0.5mg po qhs. 06/28, 06/29: no change in plan today 06/30 continue tx. loose stools, added immodium. 07/01 continue tx. monitor loose stools as it can be related to sertraline. 07/02 continue tx. 07/03 continue tx. increase sertraline 100mg po daily. 07/04 continue tx. 07/05: continue current management and treatment plan. 07/06: continue current management and treatment plan. 07/07 reports improvement in mood. no si/hi. taking medications. somewhat forgetful at times. Reason for continued inpatient stay Substantial Risk for: inability to function Time Spent With Patient Time: Total time managing care of this patient today ____ minutes.
[2025-07-07 12:32] VITALS: BP 107/64; PULSE 71
[2025-07-07 16:59] VITALS: BP 125/59; PULSE 83
[2025-07-07 19:40] VITALS: BP 101/63; PULSE 78; RESP 16; TEMP 37; O2SAT 96
[2025-07-08 08:40] VITALS: BP 113/61; PULSE 80; RESP 16; TEMP 36.6; O2SAT 95
[2025-07-08 12:43] VITALS: BP 110/65; PULSE 76
[2025-07-08 16:28] VITALS: BP 125/77; PULSE 71
[2025-07-08 20:00] VITALS: BP 118/59; PULSE 65; RESP 15; TEMP 36.9; O2SAT 96
[2025-07-09 10:03] VITALS: BP 109/53; PULSE 97; RESP 16; TEMP 36.7; O2SAT 94
[2025-07-09 13:14] VITALS: BP 116/56; PULSE 71
[2025-07-09 16:10] VITALS: BP 103/57; PULSE 80
--- NOTE | 2025-07-09 17:25 | P.PNPSI_ITS ---
Subjective Subjective Date of Service: 07/09/25 Reason For Visit: SI Subjective Notes: Conditional Voluntary Interim History: Pt sleeping through the night. She denies symptoms of depression. She reports feeling less overwhelmed, less anxious. NO SI/HI. no signs of psychosis or delusions. VS stable. Review of Systems Review of Systems No chest pain. No SOB. Dizziness. No abdominal pain. No constipation. No diarrhea. Yes all other systems are reviewed and are negative Constitutional: Reports no additional constitutional complaints Eyes: Reports no additional eye complaints Reports system reviewed and no additional complaints, except as documented Cardiovascular: Reports no additional cardiovascular complaints Respiratory: Reports no additional respiratory complaints Gastrointestinal: Reports change in stool character, Reports diarrhea and Reports loose stools Musculoskeletal: Reports abnormal gait (walker use) Skin/Breast: Reports system reviewed and no additional complaints, except as docu Reports abnormal gait (walker use) Psychiatric: Reports as per HPI Endocrine: Reports no additional endocrine complaints Hematologic/Lymphatic: Reports no additional hematologic/lymphatic complaints Allergic/Immunologic: Reports no additional allergic/immunologic complaints Mental Status Exam Mental Status Exam Narrative: Appearance: wearing hospital gown, thin, somewhat malnourished, in NAD Behavior: cooperative Psychomotor: no agitation or retardation noted, mild cogwheel on right arm. Speech: clear, normal rate/rhythm/volume, spontaneous TP: tangential TC: overwhelmed with impending eviction/homelessness Mood: overwhelmed Affect: congruent SI:none HI: none VH/AH: no overt signs Delusions:none Insight/judgment: impaired x 2. memory/cog: alert, oriented x 4. MOCA back on 12/2024 scored 14/30, difficulties with executive function and visuospatial (2/5), attention, language repetition (0/2)/fluency (0/1), recall (0/5). Her orientation is intact, as well as naming. Showing vascular pattern of cognitive impairment. Diagnostics Vital Signs (24Hr): Vital Signs - 24 hr 07/08/25 20:00 07/09/25 10:03 07/09/25 13:14 Temperature 98.5 F 98.1 F Pulse Rate 65 97 71 Respiratory Rate 15 16 Blood Pressure 118/59 L 109/53 L 116/56 L Pulse Oximetry 96 94 Oxygen Delivery Method Room Air Room Air 07/09/25 16:10 Temperature Pulse Rate 80 Respiratory Rate Blood Pressure 103/57 L Pulse Oximetry Oxygen Delivery Method BMI result Body Mass Index 19.6 Labs 06/24/25 13:21 06/25/25 08:04 Medications Medications Current Medications Acetaminophen (Acetaminophen 325 Mg Tablet) 650 mg PO Q6H PRN PRN Reason: Headache/Pain, Scale 1-10 Last Admin: 07/09/25 11:57 Dose: 650 mg Al Hydroxide/Mg Hydroxide (Magnesium Hydrox/Alum Hydrox 30 Ml Oral.Susp) 30 ml PO Q6H PRN PRN Reason: Heartburn/Nausea Albuterol Sulfate (Albuterol Sulfate 90 Mcg 8 Gm Inhaler) 1 puff INHALE QID PRN PRN Reason: wheezing/SOB Brexpiprazole (Brexpiprazole 1 Mg Tablet) 0.5 mg PO BEDTIME [facility] Last Admin: 07/08/25 20:06 Dose: 0.5 mg Levothyroxine Sodium (Levothyroxine Sodium 50 Mcg Tablet) 50 mcg PO DAILY@0600 [facility] Last Admin: 07/09/25 05:03 Dose: 50 mcg Lidocaine (Lidocaine 4 % Patch Adh..Patch) 1 patch TRANSDERMA DAILY PRN PRN Reason: Pain Last Admin: 07/01/25 20:58 Dose: 1 patch Loperamide HCl (Loperamide Hcl 2 Mg Capsule) 2 mg PO Q4H PRN PRN Reason: loose stools Magnesium Hydroxide (Milk Of Magnesia 30 Ml Oral.Susp) 30 ml PO DAILY PRN PRN Reason: Constipation Midodrine (Midodrine Hcl 5 Mg Tablet) 5 mg PO TID@0900,1300,1700 [facility] Last Admin: 07/09/25 16:16 Dose: 5 mg Mirtazapine (Mirtazapine 15 Mg Tablet) 15 mg PO BEDTIME [facility] Last Admin: 07/08/25 20:06 Dose: 15 mg Sertraline HCl (Sertraline Hcl 100 Mg Tablet) 100 mg PO DAILY [facility] Last Admin: 07/09/25 10:05 Dose: 100 mg Tramadol HCl (Tramadol Hcl 50 Mg Tablet) 25 mg PO Q4H PRN PRN Reason: moderate, hip pain Last Admin: 07/07/25 09:14 Dose: 25 mg Trazodone HCl (Trazodone Hcl 50 Mg Tablet) 50 mg PO BEDTIME PRN PRN Reason: Insomnia Allergies Allergies Allergy/AdvReac Type Severity Reaction Status Date / Time penicillin V Allergy Unknown Unknown Verified 06/24/25 12:34 Assessment & Plan Assessment & Plan (1) Bipolar disorder with depression: Status: Acute Code(s): F31.9 - Bipolar disorder, unspecified Plan Ms. Chan is a 69 year-old woman hx of Bipolar (although do wander if it is more unipolar depression, hx of trauma and dysphoria). She was brought to [facility] ED by long time friend Carl due to increase anxious mood, feeling overwhelmed in context of impending eviction. She was here back in 12/2024 with similar presentation including increase anxious mood, feeling overwhelmed due to impending eviction. She is again noted to have difficulty remembering information including the fact that she had drops in BP and was discharged on midodrine, she does not remember this but continues to report feeling dizzy when standing up. She denies SI/HI. No psychosis or delusional content. We discussed risks, benefits and alternative treatment options. We discussed trying sertraline for depression. May consider discontinuing trileptal and rexulti. Monitor ortho VS, may need to restart midodrine. Pt discussed with SW referral to [facility]. (1) Bipolar disorder with depression: Status: Acute Code(s): F31.9 - Bipolar disorder, unspecified (2) Cognitive impairment: Status: Acute Code(s): R41.89 - Other symptoms and signs involving cognitive functions and awareness Assessment and Plan: She completed MOCA on 12/17/2024 scored 14/30, difficulties with executive function and visuospatial (2/5), attention, language repetition (0/2)/fluency (0/1), recall (0/5). Her orientation is intact, as well as naming. Shows vascular pattern of cognitive impairment. ACL scored 5. PLAN 1. Admit to S1, CV, 15 minutes checks for safety 2. start sertraline 25mg po daily, plan to titrate. 3. dc trileptal unclear therapeutic use. may lower rexulti. 4. obtain collateral information 5. Aftercare planning. 06/27 increase sertraline to 75mg po daily. lower rexulti to 0.5mg po qhs. 06/28, 06/29: no change in plan today 06/30 continue tx. loose stools, added immodium. 07/01 continue tx. monitor loose stools as it can be related to sertraline. 07/02 continue tx. 07/03 continue tx. increase sertraline 100mg po daily. 07/04 continue tx. 07/05: continue current management and treatment plan. 07/06: continue current management and treatment plan. 07/07 reports improvement in mood. no si/hi. taking medications. somewhat forgetful at times. 07/08 continue tx. 07/09 continue tx. pending placement. Reason for continued inpatient stay Substantial Risk for: inability to function Time Spent With Patient Time: Total time managing care of this patient today ____ minutes.
[2025-07-09 20:49] VITALS: BP 130/60; PULSE 62; RESP 14; TEMP 36.8; O2SAT 95
[2025-07-10 08:55] VITALS: BP 105/60; PULSE 83; RESP 18; O2SAT 96
--- NOTE | 2025-07-10 09:52 | P.PNPSI_ITS ---
Subjective Subjective Date of Service: 07/10/25 Reason For Visit: SI Subjective Notes: Conditional Voluntary Interim History: Pt sleeping through the night. She denies symptoms of depression. She reports feeling less overwhelmed, less anxious. NO SI/HI. no signs of psychosis or delusions. VS stable. awaiting visit from rest home. Review of Systems Review of Systems No chest pain. No SOB. Dizziness. No abdominal pain. No constipation. No diarrhea. Yes all other systems are reviewed and are negative Constitutional: Reports no additional constitutional complaints Eyes: Reports no additional eye complaints Reports system reviewed and no additional complaints, except as documented Cardiovascular: Reports no additional cardiovascular complaints Respiratory: Reports no additional respiratory complaints Gastrointestinal: Reports change in stool character, Reports diarrhea and Reports loose stools Musculoskeletal: Reports abnormal gait (walker use) Skin/Breast: Reports system reviewed and no additional complaints, except as docu Reports abnormal gait (walker use) Psychiatric: Reports as per HPI Endocrine: Reports no additional endocrine complaints Hematologic/Lymphatic: Reports no additional hematologic/lymphatic complaints Allergic/Immunologic: Reports no additional allergic/immunologic complaints Mental Status Exam Mental Status Exam Narrative: Appearance: wearing hospital gown, thin, somewhat malnourished, in NAD Behavior: cooperative Psychomotor: no agitation or retardation noted, mild cogwheel on right arm. Speech: clear, normal rate/rhythm/volume, spontaneous TP: tangential TC: overwhelmed with impending eviction/homelessness Mood: overwhelmed Affect: congruent SI:none HI: none VH/AH: no overt signs Delusions:none Insight/judgment: impaired x 2. memory/cog: alert, oriented x 4. MOCA back on 12/2024 scored 14/30, difficulties with executive function and visuospatial (2/5), attention, language repetition (0/2)/fluency (0/1), recall (0/5). Her orientation is intact, as well as naming. Showing vascular pattern of cognitive impairment. Diagnostics Vital Signs (24Hr): Vital Signs - 24 hr 07/09/25 10:03 07/09/25 13:14 07/09/25 16:10 Temperature 98.1 F Pulse Rate 97 71 80 Respiratory Rate 16 Blood Pressure 109/53 L 116/56 L 103/57 L Pulse Oximetry 94 Oxygen Delivery Method Room Air 07/09/25 20:49 07/10/25 08:55 Temperature 98.2 F Pulse Rate 62 83 Respiratory Rate 14 18 Blood Pressure 130/60 105/60 Pulse Oximetry 95 96 Oxygen Delivery Method Room Air Room Air BMI result Body Mass Index 19.6 Labs 06/24/25 13:21 06/25/25 08:04 Medications Medications Current Medications Acetaminophen (Acetaminophen 325 Mg Tablet) 650 mg PO Q6H PRN PRN Reason: Headache/Pain, Scale 1-10 Last Admin: 07/09/25 11:57 Dose: 650 mg Al Hydroxide/Mg Hydroxide (Magnesium Hydrox/Alum Hydrox 30 Ml Oral.Susp) 30 ml PO Q6H PRN PRN Reason: Heartburn/Nausea Albuterol Sulfate (Albuterol Sulfate 90 Mcg 8 Gm Inhaler) 1 puff INHALE QID PRN PRN Reason: wheezing/SOB Brexpiprazole (Brexpiprazole 1 Mg Tablet) 0.5 mg PO BEDTIME [facility] Last Admin: 07/09/25 20:50 Dose: 0.5 mg Levothyroxine Sodium (Levothyroxine Sodium 50 Mcg Tablet) 50 mcg PO DAILY@0600 [facility] Last Admin: 07/10/25 05:26 Dose: 50 mcg Lidocaine (Lidocaine 4 % Patch Adh..Patch) 1 patch TRANSDERMA DAILY PRN PRN Reason: Pain Last Admin: 07/01/25 20:58 Dose: 1 patch Loperamide HCl (Loperamide Hcl 2 Mg Capsule) 2 mg PO Q4H PRN PRN Reason: loose stools Magnesium Hydroxide (Milk Of Magnesia 30 Ml Oral.Susp) 30 ml PO DAILY PRN PRN Reason: Constipation Midodrine (Midodrine Hcl 5 Mg Tablet) 5 mg PO TID@0900,1300,1700 [facility] Last Admin: 07/10/25 08:56 Dose: 5 mg Mirtazapine (Mirtazapine 15 Mg Tablet) 15 mg PO BEDTIME [facility] Last Admin: 07/09/25 20:50 Dose: 15 mg Sertraline HCl (Sertraline Hcl 100 Mg Tablet) 100 mg PO DAILY [facility] Last Admin: 07/10/25 08:56 Dose: 100 mg Tramadol HCl (Tramadol Hcl 50 Mg Tablet) 25 mg PO Q4H PRN PRN Reason: moderate, hip pain Last Admin: 07/07/25 09:14 Dose: 25 mg Trazodone HCl (Trazodone Hcl 50 Mg Tablet) 50 mg PO BEDTIME PRN PRN Reason: Insomnia Allergies Allergies Allergy/AdvReac Type Severity Reaction Status Date / Time penicillin V Allergy Unknown Unknown Verified 06/24/25 12:34 Assessment & Plan Assessment & Plan (1) Bipolar disorder with depression: Status: Acute Code(s): F31.9 - Bipolar disorder, unspecified (2) Cognitive impairment: Status: Acute Code(s): R41.89 - Other symptoms and signs involving cognitive functions and awareness Plan Ms. Chan is a 69 year-old woman hx of Bipolar (although do wander if it is more unipolar depression, hx of trauma and dysphoria). She was brought to [facility] by long time friend Carl due to increase anxious mood, feeling overwhelmed in context of impending eviction. She was here back in 12/2024 with similar presentation including increase anxious mood, feeling overwhelmed due to impending eviction. She is again noted to have difficulty remembering information including the fact that she had drops in BP and was discharged on midodrine, she does not remember this but continues to report feeling dizzy when standing up. She denies SI/HI. No psychosis or delusional content. We discussed risks, benefits and alternative treatment options. We discussed trying sertraline for depression. May consider discontinuing trileptal and rexulti. Monitor ortho VS, may need to restart midodrine. Pt discussed with referral to [facility]. (1) Bipolar disorder with depression: Status: Acute Code(s): F31.9 - Bipolar disorder, unspecified (2) Cognitive impairment: Status: Acute Code(s): R41.89 - Other symptoms and signs involving cognitive functions and awareness Assessment and Plan: She completed MOCA on 12/17/2024 scored 14/30, difficulties with executive function and visuospatial (2/5), attention, language repetition (0/2)/fluency (0/1), recall (0/5). Her orientation is intact, as well as naming. Shows vascular pattern of cognitive impairment. ACL scored 5. PLAN 1. Admit to S1, CV, 15 minutes checks for safety 2. start sertraline 25mg po daily, plan to titrate. 3. dc trileptal unclear therapeutic use. may lower rexulti. 4. obtain collateral information 5. Aftercare planning. 06/27 increase sertraline to 75mg po daily. lower rexulti to 0.5mg po qhs. 06/28, 06/29: no change in plan today 06/30 continue tx. loose stools, added immodium. 07/01 continue tx. monitor loose stools as it can be related to sertraline. 07/02 continue tx. 07/03 continue tx. increase sertraline 100mg po daily. 07/04 continue tx. 07/05: continue current management and treatment plan. 07/06: continue current management and treatment plan. 07/07 reports improvement in mood. no si/hi. taking medications. somewhat forgetful at times. 07/08 continue tx. 07/09 continue tx. pending placement. 07/10 continue tx. Reason for continued inpatient stay Substantial Risk for: inability to function Time Spent With Patient Time: Total time managing care of this patient today ____ minutes.
[2025-07-10 10:31] VITALS: BMI 19.6
[2025-07-10 13:09] VITALS: BP 109/59; PULSE 82; TEMP 36.1
[2025-07-10 16:19] VITALS: BP 116/68; PULSE 73
[2025-07-10 19:53] VITALS: BP 130/64; PULSE 73; RESP 16; TEMP 36.8; O2SAT 96
[2025-07-11 08:04] VITALS: BP 112/64; PULSE 90; RESP 16; TEMP 35.8; O2SAT 95
[2025-07-11 14:42] VITALS: BP 104/66
[2025-07-11 17:13] VITALS: BP 127/65
--- NOTE | 2025-07-11 17:14 | HO.PSYCHPN ---
Subjective Subjective Date of Service: 07/11/25 Reason For Visit: SI Interim History: Pt sleeping through the night. She denies symptoms of depression. She reports feeling less overwhelmed, less anxious. NO SI/HI. no signs of psychosis or delusions. VS stable. awaiting visit from rest home. Review of Systems Review of Systems No chest pain. No SOB. Dizziness. No abdominal pain. No constipation. No diarrhea. Yes all other systems are reviewed and are negative Constitutional: Reports no additional constitutional complaints Eyes: Reports no additional eye complaints Reports system reviewed and no additional complaints, except as documented Cardiovascular: Reports no additional cardiovascular complaints Respiratory: Reports no additional respiratory complaints Gastrointestinal: Reports change in stool character, Reports diarrhea and Reports loose stools Musculoskeletal: Reports abnormal gait (walker use) Skin/Breast: Reports system reviewed and no additional complaints, except as docu Reports abnormal gait (walker use) Psychiatric: Reports as per HPI Endocrine: Reports no additional endocrine complaints Hematologic/Lymphatic: Reports no additional hematologic/lymphatic complaints Allergic/Immunologic: Reports no additional allergic/immunologic complaints Mental Status Exam Mental Status Exam Narrative: Appearance: wearing hospital gown, thin, somewhat malnourished, in NAD Behavior: cooperative Psychomotor: no agitation or retardation noted, mild cogwheel on right arm. Speech: clear, normal rate/rhythm/volume, spontaneous TP: tangential TC: overwhelmed with impending eviction/homelessness Mood: overwhelmed Affect: congruent SI:none HI: none VH/AH: no overt signs Delusions:none Insight/judgment: impaired x 2. memory/cog: alert, oriented x 4. MOCA back on 12/2024 scored 14/30, difficulties with executive function and visuospatial (2/5), attention, language repetition (0/2)/fluency (0/1), recall (0/5). Her orientation is intact, as well as naming. Showing vascular pattern of cognitive impairment. Diagnostics Vital Signs (24Hr): Vital Signs - 24 hr 07/10/25 19:53 07/11/25 08:04 07/11/25 14:42 Temperature 98.2 F 96.5 F L Pulse Rate 73 90 Respiratory Rate 16 16 Blood Pressure 130/64 112/64 104/66 Pulse Oximetry 96 95 Oxygen Delivery Method Room Air 07/11/25 17:13 Temperature Pulse Rate Respiratory Rate Blood Pressure 127/65 Pulse Oximetry Oxygen Delivery Method BMI result Body Mass Index 19.6 Labs 06/24/25 13:21 06/25/25 08:04 Medications Medications Current Medications Acetaminophen (Acetaminophen 325 Mg Tablet) 650 mg PO Q6H PRN PRN Reason: Headache/Pain, Scale 1-10 Last Admin: 07/09/25 11:57 Dose: 650 mg Al Hydroxide/Mg Hydroxide (Magnesium Hydrox/Alum Hydrox 30 Ml Oral.Susp) 30 ml PO Q6H PRN PRN Reason: Heartburn/Nausea Albuterol Sulfate (Albuterol Sulfate 90 Mcg 8 Gm Inhaler) 1 puff INHALE QID PRN PRN Reason: wheezing/SOB Brexpiprazole (Brexpiprazole 1 Mg Tablet) 0.5 mg PO BEDTIME [facility] Last Admin: 07/10/25 19:56 Dose: 0.5 mg Levothyroxine Sodium (Levothyroxine Sodium 50 Mcg Tablet) 50 mcg PO DAILY@0600 [facility] Last Admin: 07/11/25 05:05 Dose: 50 mcg Lidocaine (Lidocaine 4 % Patch Adh..Patch) 1 patch TRANSDERMA DAILY PRN PRN Reason: Pain Last Admin: 07/01/25 20:58 Dose: 1 patch Loperamide HCl (Loperamide Hcl 2 Mg Capsule) 2 mg PO Q4H PRN PRN Reason: loose stools Magnesium Hydroxide (Milk Of Magnesia 30 Ml Oral.Susp) 30 ml PO DAILY PRN PRN Reason: Constipation Midodrine (Midodrine Hcl 5 Mg Tablet) 5 mg PO TID@0900,1300,1700 [facility] Last Admin: 07/11/25 14:42 Dose: 5 mg Mirtazapine (Mirtazapine 15 Mg Tablet) 15 mg PO BEDTIME [facility] Last Admin: 07/10/25 19:55 Dose: 15 mg Sertraline HCl (Sertraline Hcl 100 Mg Tablet) 100 mg PO DAILY [facility] Last Admin: 07/11/25 08:06 Dose: 100 mg Tramadol HCl (Tramadol Hcl 50 Mg Tablet) 25 mg PO Q4H PRN PRN Reason: moderate, hip pain Last Admin: 07/07/25 09:14 Dose: 25 mg Trazodone HCl (Trazodone Hcl 50 Mg Tablet) 50 mg PO BEDTIME PRN PRN Reason: Insomnia Allergies Allergies Allergy/AdvReac Type Severity Reaction Status Date / Time penicillin V Allergy Unknown Unknown Verified 06/24/25 12:34 Assessment & Plan Assessment & Plan (1) Bipolar disorder with depression: Status: Acute Code(s): F31.9 - Bipolar disorder, unspecified (2) Cognitive impairment: Status: Acute Code(s): R41.89 - Other symptoms and signs involving cognitive functions and awareness Plan Ms. Chan is a 69 year-old woman hx of Bipolar (although do wander if it is more unipolar depression, hx of trauma and dysphoria). She was brought to [facility] by long time friend Carl due to increase anxious mood, feeling overwhelmed in context of impending eviction. She was here back in 12/2024 with similar presentation including increase anxious mood, feeling overwhelmed due to impending eviction. She is again noted to have difficulty remembering information including the fact that she had drops in BP and was discharged on midodrine, she does not remember this but continues to report feeling dizzy when standing up. She denies SI/HI. No psychosis or delusional content. We discussed risks, benefits and alternative treatment options. We discussed trying sertraline for depression. May consider discontinuing trileptal and rexulti. Monitor ortho VS, may need to restart midodrine. Pt discussed with SW referral to [facility]. (1) Bipolar disorder with depression: Status: Acute Code(s): F31.9 - Bipolar disorder, unspecified (2) Cognitive impairment: Status: Acute Code(s): R41.89 - Other symptoms and signs involving cognitive functions and awareness Assessment and Plan: She completed MOCA on 12/17/2024 scored 14/30, difficulties with executive function and visuospatial (2/5), attention, language repetition (0/2)/fluency (0/1), recall (0/5). Her orientation is intact, as well as naming. Shows vascular pattern of cognitive impairment. ACL scored 5. PLAN 1. Admit to S1, CV, 15 minutes checks for safety 2. start sertraline 25mg po daily, plan to titrate. 3. dc trileptal unclear therapeutic use. may lower rexulti. 4. obtain collateral information 5. Aftercare planning. 06/27 increase sertraline to 75mg po daily. lower rexulti to 0.5mg po qhs. 06/28, 06/29: no change in plan today 06/30 continue tx. loose stools, added immodium. 07/01 continue tx. monitor loose stools as it can be related to sertraline. 07/02 continue tx. 07/03 continue tx. increase sertraline 100mg po daily. 07/04 continue tx. 07/05: continue current management and treatment plan. 07/06: continue current management and treatment plan. 07/07 reports improvement in mood. no si/hi. taking medications. somewhat forgetful at times. 07/08 continue tx. 07/09 continue tx. pending placement. 07/10 continue tx. 07/11 continue tx. Reason for continued inpatient stay Substantial Risk for: inability to function Time Spent With Patient Time: Total time managing care of this patient today ____ minutes.
[2025-07-11 20:00] VITALS: BP 117/59; PULSE 76; RESP 16; TEMP 36.6; O2SAT 93
[2025-07-12 07:55] VITALS: BP 102/60; PULSE 86; RESP 18; TEMP 36.2; O2SAT 94
[2025-07-12 12:44] VITALS: BP 94/60
[2025-07-12 16:27] VITALS: BP 110/64
--- NOTE | 2025-07-12 19:35 | P.PNPSI_ITS ---
Subjective Subjective Date of Service: 07/12/25 Reason For Visit: SI Interim History: pt reports she is doing fine, no questions or complaints. per staff, calm, pleasant, cooperative. no issues. Mental Status Exam Mental Status Exam Narrative: Appearance: wearing hospital gown, thin, somewhat malnourished, in NAD Behavior: cooperative Psychomotor: no agitation or retardation noted, mild cogwheel on right arm. Speech: clear, normal rate/rhythm/volume, spontaneous TP: tangential TC: overwhelmed with impending eviction/homelessness Mood: overwhelmed Affect: congruent SI:none HI: none VH/AH: no overt signs Delusions:none Insight/judgment: impaired x 2. memory/cog: alert, oriented x 4. MOCA back on 12/2024 scored 14/30, difficulties with executive function and visuospatial (2/5), attention, language repetition (0/2)/fluency (0/1), recall (0/5). Her orientation is intact, as well as naming. Showing vascular pattern of cognitive impairment. Diagnostics Vital Signs (24Hr): Vital Signs - 24 hr 07/11/25 20:00 07/12/25 07:55 07/12/25 12:44 Temperature 97.9 F 97.2 F Pulse Rate 76 86 Respiratory Rate 16 18 Blood Pressure 117/59 L 102/60 94/60 Pulse Oximetry 93 94 Oxygen Delivery Method Room Air Room Air 07/12/25 16:27 Temperature Pulse Rate Respiratory Rate Blood Pressure 110/64 Pulse Oximetry Oxygen Delivery Method BMI result Body Mass Index 19.6 Labs 06/24/25 13:21 06/25/25 08:04 Medications Medications Current Medications Acetaminophen (Acetaminophen 325 Mg Tablet) 650 mg PO Q6H PRN PRN Reason: Headache/Pain, Scale 1-10 Last Admin: 07/09/25 11:57 Dose: 650 mg Al Hydroxide/Mg Hydroxide (Magnesium Hydrox/Alum Hydrox 30 Ml Oral.Susp) 30 ml PO Q6H PRN PRN Reason: Heartburn/Nausea Albuterol Sulfate (Albuterol Sulfate 90 Mcg 8 Gm Inhaler) 1 puff INHALE QID PRN PRN Reason: wheezing/SOB Brexpiprazole (Brexpiprazole 1 Mg Tablet) 0.5 mg PO BEDTIME KIRSTIE Last Admin: 07/11/25 19:55 Dose: 0.5 mg Levothyroxine Sodium (Levothyroxine Sodium 50 Mcg Tablet) 50 mcg PO DAILY@0600 [facility] Last Admin: 07/12/25 05:58 Dose: 50 mcg Lidocaine (Lidocaine 4 % Patch Adh..Patch) 1 patch TRANSDERMA DAILY PRN PRN Reason: Pain Last Admin: 07/01/25 20:58 Dose: 1 patch Loperamide HCl (Loperamide Hcl 2 Mg Capsule) 2 mg PO Q4H PRN PRN Reason: loose stools Magnesium Hydroxide (Milk Of Magnesia 30 Ml Oral.Susp) 30 ml PO DAILY PRN PRN Reason: Constipation Midodrine (Midodrine Hcl 5 Mg Tablet) 5 mg PO TID@0900,1300,1700 [facility] Last Admin: 07/12/25 16:27 Dose: 5 mg Mirtazapine (Mirtazapine 15 Mg Tablet) 15 mg PO BEDTIME [facility] Last Admin: 07/11/25 19:55 Dose: 15 mg Sertraline HCl (Sertraline Hcl 100 Mg Tablet) 100 mg PO DAILY [facility] Last Admin: 07/12/25 08:13 Dose: 100 mg Tramadol HCl (Tramadol Hcl 50 Mg Tablet) 25 mg PO Q4H PRN PRN Reason: moderate, hip pain Last Admin: 07/07/25 09:14 Dose: 25 mg Trazodone HCl (Trazodone Hcl 50 Mg Tablet) 50 mg PO BEDTIME PRN PRN Reason: Insomnia Allergies Allergies Allergy/AdvReac Type Severity Reaction Status Date / Time penicillin V Allergy Unknown Unknown Verified 06/24/25 12:34 Assessment & Plan Assessment & Plan (1) Bipolar disorder with depression: Status: Acute Code(s): F31.9 - Bipolar disorder, unspecified (2) Cognitive impairment: Status: Acute Code(s): R41.89 - Other symptoms and signs involving cognitive functions and awareness Plan Ms. Chan is a 69 year-old woman hx of Bipolar (although do wander if it is more unipolar depression, hx of trauma and dysphoria). She was brought to [facility] by long time friend Carl due to increase anxious mood, feeling overwhelmed in context of impending eviction. She was here back in 12/2024 with similar presentation including increase anxious mood, feeling overwhelmed due to impending eviction. She is again noted to have difficulty remembering information including the fact that she had drops in BP and was discharged on midodrine, she does not remember this but continues to report feeling dizzy when standing up. She denies SI/HI. No psychosis or delusional content. We discussed risks, benefits and alternative treatment options. We discussed trying sertraline for depression. May consider discontinuing trileptal and rexulti. Monitor ortho VS, may need to restart midodrine. Pt discussed with SW referral to [facility]. (1) Bipolar disorder with depression: Status: Acute Code(s): F31.9 - Bipolar disorder, unspecified (2) Cognitive impairment: Status: Acute Code(s): R41.89 - Other symptoms and signs involving cognitive functions and awareness Assessment and Plan: She completed MOCA on 12/17/2024 scored 14/30, difficulties with executive function and visuospatial (2/5), attention, language repetition (0/2)/fluency (0/1), recall (0/5). Her orientation is intact, as well as naming. Shows vascular pattern of cognitive impairment. ACL scored 5. PLAN 1. Admit to S1, CV, 15 minutes checks for safety 2. start sertraline 25mg po daily, plan to titrate. 3. dc trileptal unclear therapeutic use. may lower rexulti. 4. obtain collateral information 5. Aftercare planning. 06/27 increase sertraline to 75mg po daily. lower rexulti to 0.5mg po qhs. 06/28, 06/29: no change in plan today 06/30 continue tx. loose stools, added immodium. 07/01 continue tx. monitor loose stools as it can be related to sertraline. 07/02 continue tx. 07/03 continue tx. increase sertraline 100mg po daily. 07/04 continue tx. 07/05: continue current management and treatment plan. 07/06: continue current management and treatment plan. 07/07 reports improvement in mood. no si/hi. taking medications. somewhat forgetful at times. 07/08 continue tx. 07/09 continue tx. pending placement. 07/10 continue tx. 07/11 continue tx. 07/12: stable. continnue current mgmt. Reason for continued inpatient stay Substantial Risk for: inability to function Time Spent With Patient Time: Total time managing care of this patient today ____ minutes.
[2025-07-12 20:00] VITALS: BP 90/60; PULSE 93; RESP 16; TEMP 36.9; O2SAT 95
[2025-07-13 08:00] VITALS: BP 129/56; PULSE 89; RESP 18; TEMP 36.6; O2SAT 92
[2025-07-13 12:28] VITALS: BP 94/57
--- NOTE | 2025-07-13 15:11 | P.PNPSI_ITS ---
Subjective Subjective Date of Service: 07/13/25 Reason For Visit: SI Interim History: pleasant, cooperative. no complaints or requests. per staff, no issues. sleeping, eating, quiet. Mental Status Exam Mental Status Exam Narrative: Appearance: wearing hospital gown, thin, somewhat malnourished, in NAD Behavior: cooperative Psychomotor: no agitation or retardation noted, mild cogwheel on right arm. Speech: clear, normal rate/rhythm/volume, spontaneous TP: tangential TC: overwhelmed with impending eviction/homelessness Mood: euthymic Affect: congruent SI:none HI: none VH/AH: no overt signs Delusions:none Insight/judgment: impaired x 2. memory/cog: alert, oriented x 4. MOCA back on 12/2024 scored 14/30, difficulties with executive function and visuospatial (2/5), attention, language repetition (0/2)/fluency (0/1), recall (0/5). Her orientation is intact, as well as naming. Showing vascular pattern of cognitive impairment. Diagnostics Vital Signs (24Hr): Vital Signs - 24 hr 07/12/25 16:27 07/12/25 20:00 07/13/25 08:00 Temperature 98.4 F 97.8 F Pulse Rate 93 89 Respiratory Rate 16 18 Blood Pressure 110/64 90/60 129/56 L Pulse Oximetry 95 92 Oxygen Delivery Method Room Air Room Air 07/13/25 12:28 Temperature Pulse Rate Respiratory Rate Blood Pressure 94/57 L Pulse Oximetry Oxygen Delivery Method BMI result Body Mass Index 19.6 Labs 06/24/25 13:21 06/25/25 08:04 Medications Medications Current Medications Acetaminophen (Acetaminophen 325 Mg Tablet) 650 mg PO Q6H PRN PRN Reason: Headache/Pain, Scale 1-10 Last Admin: 07/09/25 11:57 Dose: 650 mg Al Hydroxide/Mg Hydroxide (Magnesium Hydrox/Alum Hydrox 30 Ml Oral.Susp) 30 ml PO Q6H PRN PRN Reason: Heartburn/Nausea Albuterol Sulfate (Albuterol Sulfate 90 Mcg 8 Gm Inhaler) 1 puff INHALE QID PRN PRN Reason: wheezing/SOB Brexpiprazole (Brexpiprazole 1 Mg Tablet) 0.5 mg PO BEDTIME KIRSTIE Last Admin: 07/12/25 21:05 Dose: 0.5 mg Levothyroxine Sodium (Levothyroxine Sodium 50 Mcg Tablet) 50 mcg PO DAILY@0600 [facility] Last Admin: 07/13/25 05:52 Dose: 50 mcg Lidocaine (Lidocaine 4 % Patch Adh..Patch) 1 patch TRANSDERMA DAILY PRN PRN Reason: Pain Last Admin: 07/01/25 20:58 Dose: 1 patch Loperamide HCl (Loperamide Hcl 2 Mg Capsule) 2 mg PO Q4H PRN PRN Reason: loose stools Magnesium Hydroxide (Milk Of Magnesia 30 Ml Oral.Susp) 30 ml PO DAILY PRN PRN Reason: Constipation Midodrine (Midodrine Hcl 5 Mg Tablet) 5 mg PO TID@0900,1300,1700 [facility] Last Admin: 07/13/25 12:28 Dose: 5 mg Mirtazapine (Mirtazapine 15 Mg Tablet) 15 mg PO BEDTIME KIRSTIE Last Admin: 07/12/25 21:05 Dose: 15 mg Sertraline HCl (Sertraline Hcl 100 Mg Tablet) 100 mg PO DAILY [facility] Last Admin: 07/13/25 08:06 Dose: 100 mg Tramadol HCl (Tramadol Hcl 50 Mg Tablet) 25 mg PO Q4H PRN PRN Reason: moderate, hip pain Last Admin: 07/07/25 09:14 Dose: 25 mg Trazodone HCl (Trazodone Hcl 50 Mg Tablet) 50 mg PO BEDTIME PRN PRN Reason: Insomnia Allergies Allergies Allergy/AdvReac Type Severity Reaction Status Date / Time penicillin V Allergy Unknown Unknown Verified 06/24/25 12:34 Assessment & Plan Assessment & Plan (1) Bipolar disorder with depression: Status: Acute Code(s): F31.9 - Bipolar disorder, unspecified (2) Cognitive impairment: Status: Acute Code(s): R41.89 - Other symptoms and signs involving cognitive functions and awareness Plan Ms. Chan is a 69 year-old woman hx of Bipolar (although do wander if it is more unipolar depression, hx of trauma and dysphoria). She was brought to [facility] by long time friend Carl due to increase anxious mood, feeling overwhelmed in context of impending eviction. She was here back in 12/2024 with similar presentation including increase anxious mood, feeling overwhelmed due to impending eviction. She is again noted to have difficulty remembering information including the fact that she had drops in BP and was discharged on midodrine, she does not remember this but continues to report feeling dizzy when standing up. She denies SI/HI. No psychosis or delusional content. We discussed risks, benefits and alternative treatment options. We discussed trying sertraline for depression. May consider discontinuing trileptal and rexulti. Monitor ortho VS, may need to restart midodrine. Pt discussed with SW referral to [facility]. (1) Bipolar disorder with depression: Status: Acute Code(s): F31.9 - Bipolar disorder, unspecified (2) Cognitive impairment: Status: Acute Code(s): R41.89 - Other symptoms and signs involving cognitive functions and awareness Assessment and Plan: She completed MOCA on 12/17/2024 scored 14/30, difficulties with executive function and visuospatial (2/5), attention, language repetition (0/2)/fluency (0/1), recall (0/5). Her orientation is intact, as well as naming. Shows vascular pattern of cognitive impairment. ACL scored 5. PLAN 1. Admit to S1, CV, 15 minutes checks for safety 2. start sertraline 25mg po daily, plan to titrate. 3. dc trileptal unclear therapeutic use. may lower rexulti. 4. obtain collateral information 5. Aftercare planning. 06/27 increase sertraline to 75mg po daily. lower rexulti to 0.5mg po qhs. 06/28, 06/29: no change in plan today 06/30 continue tx. loose stools, added immodium. 07/01 continue tx. monitor loose stools as it can be related to sertraline. 07/02 continue tx. 07/03 continue tx. increase sertraline 100mg po daily. 07/04 continue tx. 07/05: continue current management and treatment plan. 07/06: continue current management and treatment plan. 07/07 reports improvement in mood. no si/hi. taking medications. somewhat forgetful at times. 07/08 continue tx. 07/09 continue tx. pending placement. 07/10 continue tx. 07/11 continue tx. 07/12: stable. continue current mgmt. 07/13: stable presentation. continue current mgmt. Reason for continued inpatient stay Substantial Risk for: inability to function Time Spent With Patient Time: Total time managing care of this patient today ____ minutes.
[2025-07-13 16:28] VITALS: BP 96/55
[2025-07-13 20:00] VITALS: BP 108/59; PULSE 77; RESP 14; TEMP 37; O2SAT 95
[2025-07-14 08:00] VITALS: BP 107/55; PULSE 106; RESP 16; TEMP 36.3; O2SAT 94
[2025-07-14 13:15] VITALS: BP 103/60
--- NOTE | 2025-07-14 15:17 | HO.PSYCHPN ---
Subjective Subjective Date of Service: 07/14/25 Reason For Visit: SI Subjective Notes: Conditional Voluntary Interim History: Pt slept through the night. She denies SI/HI. She reports interview with rest home went well today and she is very happy about it. VS stable. no concerns. Review of Systems Review of Systems No chest pain. No SOB. Dizziness. No abdominal pain. No constipation. No diarrhea. Yes all other systems are reviewed and are negative Constitutional: Reports no additional constitutional complaints Eyes: Reports no additional eye complaints Reports system reviewed and no additional complaints, except as documented Cardiovascular: Reports no additional cardiovascular complaints Respiratory: Reports no additional respiratory complaints Gastrointestinal: Reports change in stool character, Reports diarrhea and Reports loose stools Musculoskeletal: Reports abnormal gait (walker use) Skin/Breast: Reports system reviewed and no additional complaints, except as docu Reports abnormal gait (walker use) Psychiatric: Reports as per HPI Endocrine: Reports no additional endocrine complaints Hematologic/Lymphatic: Reports no additional hematologic/lymphatic complaints Allergic/Immunologic: Reports no additional allergic/immunologic complaints Mental Status Exam Mental Status Exam Narrative: Appearance: wearing hospital gown, thin, somewhat malnourished, in NAD Behavior: cooperative Psychomotor: no agitation or retardation noted, mild cogwheel on right arm. Speech: clear, normal rate/rhythm/volume, spontaneous TP: tangential TC: overwhelmed with impending eviction/homelessness Mood: euthymic Affect: congruent SI:none HI: none VH/AH: no overt signs Delusions:none Insight/judgment: impaired x 2. memory/cog: alert, oriented x 4. MOCA back on 12/2024 scored 14/30, difficulties with executive function and visuospatial (2/5), attention, language repetition (0/2)/fluency (0/1), recall (0/5). Her orientation is intact, as well as naming. Showing vascular pattern of cognitive impairment. Diagnostics Vital Signs (24Hr): Vital Signs - 24 hr 07/13/25 16:28 07/13/25 20:00 07/14/25 08:00 Temperature 98.6 F 97.3 F Pulse Rate 77 106 H Respiratory Rate 14 16 Blood Pressure 96/55 L 108/59 L 107/55 L Pulse Oximetry 95 94 Oxygen Delivery Method Room Air Room Air 07/14/25 13:15 Temperature Pulse Rate Respiratory Rate Blood Pressure 103/60 Pulse Oximetry Oxygen Delivery Method BMI result Body Mass Index 19.6 Labs 06/24/25 13:21 06/25/25 08:04 Medications Medications Current Medications Acetaminophen (Acetaminophen 325 Mg Tablet) 650 mg PO Q6H PRN PRN Reason: Headache/Pain, Scale 1-10 Last Admin: 07/09/25 11:57 Dose: 650 mg Al Hydroxide/Mg Hydroxide (Magnesium Hydrox/Alum Hydrox 30 Ml Oral.Susp) 30 ml PO Q6H PRN PRN Reason: Heartburn/Nausea Albuterol Sulfate (Albuterol Sulfate 90 Mcg 8 Gm Inhaler) 1 puff INHALE QID PRN PRN Reason: wheezing/SOB Brexpiprazole (Brexpiprazole 1 Mg Tablet) 0.5 mg PO BEDTIME [facility] Last Admin: 07/13/25 20:11 Dose: 0.5 mg Levothyroxine Sodium (Levothyroxine Sodium 50 Mcg Tablet) 50 mcg PO DAILY@0600 [facility] Last Admin: 07/14/25 05:10 Dose: 50 mcg Lidocaine (Lidocaine 4 % Patch Adh..Patch) 1 patch TRANSDERMA DAILY PRN PRN Reason: Pain Last Admin: 07/01/25 20:58 Dose: 1 patch Loperamide HCl (Loperamide Hcl 2 Mg Capsule) 2 mg PO Q4H PRN PRN Reason: loose stools Magnesium Hydroxide (Milk Of Magnesia 30 Ml Oral.Susp) 30 ml PO DAILY PRN PRN Reason: Constipation Midodrine (Midodrine Hcl 5 Mg Tablet) 5 mg PO TID@0900,1300,1700 [facility] Last Admin: 07/14/25 13:15 Dose: 5 mg Mirtazapine (Mirtazapine 15 Mg Tablet) 15 mg PO BEDTIME [facility] Last Admin: 07/13/25 20:11 Dose: 15 mg Sertraline HCl (Sertraline Hcl 100 Mg Tablet) 100 mg PO DAILY [facility] Last Admin: 07/14/25 08:43 Dose: 100 mg Tramadol HCl (Tramadol Hcl 50 Mg Tablet) 25 mg PO Q4H PRN PRN Reason: moderate, hip pain Last Admin: 07/07/25 09:14 Dose: 25 mg Trazodone HCl (Trazodone Hcl 50 Mg Tablet) 50 mg PO BEDTIME PRN PRN Reason: Insomnia Allergies Allergies Allergy/AdvReac Type Severity Reaction Status Date / Time penicillin V Allergy Unknown Unknown Verified 06/24/25 12:34 Assessment & Plan Assessment & Plan (1) Bipolar disorder with depression: Status: Acute Code(s): F31.9 - Bipolar disorder, unspecified (2) Cognitive impairment: Status: Acute Code(s): R41.89 - Other symptoms and signs involving cognitive functions and awareness Plan Ms. Chan is a 69 year-old woman hx of Bipolar (although do wander if it is more unipolar depression, hx of trauma and dysphoria). She was brought to [facility] by long time friend Carl due to increase anxious mood, feeling overwhelmed in context of impending eviction. She was here back in 12/2024 with similar presentation including increase anxious mood, feeling overwhelmed due to impending eviction. She is again noted to have difficulty remembering information including the fact that she had drops in BP and was discharged on midodrine, she does not remember this but continues to report feeling dizzy when standing up. She denies SI/HI. No psychosis or delusional content. We discussed risks, benefits and alternative treatment options. We discussed trying sertraline for depression. May consider discontinuing trileptal and rexulti. Monitor ortho VS, may need to restart midodrine. Pt discussed with SW referral to [facility]. (1) Bipolar disorder with depression: Status: Acute Code(s): F31.9 - Bipolar disorder, unspecified (2) Cognitive impairment: Status: Acute Code(s): R41.89 - Other symptoms and signs involving cognitive functions and awareness Assessment and Plan: She completed MOCA on 12/17/2024 scored 14/30, difficulties with executive function and visuospatial (2/5), attention, language repetition (0/2)/fluency (0/1), recall (0/5). Her orientation is intact, as well as naming. Shows vascular pattern of cognitive impairment. ACL scored 5. PLAN 1. Admit to S1, CV, 15 minutes checks for safety 2. start sertraline 25mg po daily, plan to titrate. 3. dc trileptal unclear therapeutic use. may lower rexulti. 4. obtain collateral information 5. Aftercare planning. 06/27 increase sertraline to 75mg po daily. lower rexulti to 0.5mg po qhs. 06/28, 06/29: no change in plan today 06/30 continue tx. loose stools, added immodium. 07/01 continue tx. monitor loose stools as it can be related to sertraline. 07/02 continue tx. 07/03 continue tx. increase sertraline 100mg po daily. 07/04 continue tx. 07/05: continue current management and treatment plan. 07/06: continue current management and treatment plan. 07/07 reports improvement in mood. no si/hi. taking medications. somewhat forgetful at times. 07/08 continue tx. 07/09 continue tx. pending placement. 07/10 continue tx. 07/11 continue tx. 07/12: stable. continue current mgmt. 07/13: stable presentation. continue current mgmt. 07/14 continue tx. Reason for continued inpatient stay Substantial Risk for: inability to function Time Spent With Patient Time: Total time managing care of this patient today ____ minutes.
[2025-07-14 16:17] VITALS: BP 124/76
[2025-07-14 20:00] VITALS: BP 114/56; PULSE 79; RESP 16; TEMP 36.7; O2SAT 93
[2025-07-15 08:00] VITALS: BP 102/74; PULSE 100; RESP 18; TEMP 36.4; O2SAT 94
[2025-07-15 12:09] VITALS: BP 104/57
--- NOTE | 2025-07-15 16:58 | P.PNPSI_ITS ---
Subjective Subjective Date of Service: 07/15/25 Reason For Visit: SI Subjective Notes: Conditional Voluntary Interim History: Pt slept through the night. She denies SI/HI. She reports mood is good and feels better than when she firt came here. She is relief that she may go to rest home from here. No SI/HI. taking medications. denies any physical concerns. VS stable. Review of Systems Review of Systems No chest pain. No SOB. Dizziness. No abdominal pain. No constipation. No diarrhea. Yes all other systems are reviewed and are negative Constitutional: Reports no additional constitutional complaints Eyes: Reports no additional eye complaints Reports system reviewed and no additional complaints, except as documented Cardiovascular: Reports no additional cardiovascular complaints Respiratory: Reports no additional respiratory complaints Gastrointestinal: Reports change in stool character, Reports diarrhea and Reports loose stools Musculoskeletal: Reports abnormal gait (walker use) Skin/Breast: Reports system reviewed and no additional complaints, except as docu Reports abnormal gait (walker use) Psychiatric: Reports as per HPI Endocrine: Reports no additional endocrine complaints Hematologic/Lymphatic: Reports no additional hematologic/lymphatic complaints Allergic/Immunologic: Reports no additional allergic/immunologic complaints Mental Status Exam Mental Status Exam Narrative: Appearance: wearing hospital gown, thin, somewhat malnourished, in NAD Behavior: cooperative Psychomotor: no agitation or retardation noted, mild cogwheel on right arm. Speech: clear, normal rate/rhythm/volume, spontaneous TP: tangential TC: overwhelmed with impending eviction/homelessness Mood: euthymic Affect: congruent SI:none HI: none VH/AH: no overt signs Delusions:none Insight/judgment: impaired x 2. memory/cog: alert, oriented x 4. MOCA back on 12/2024 scored 14/30, difficulties with executive function and visuospatial (2/5), attention, language repetition (0/2)/fluency (0/1), recall (0/5). Her orientation is intact, as well as naming. Showing vascular pattern of cognitive impairment. Diagnostics Vital Signs (24Hr): Vital Signs - 24 hr 07/14/25 20:00 07/15/25 08:00 07/15/25 12:09 Temperature 98.1 F 97.6 F Pulse Rate 79 100 Respiratory Rate 16 18 Blood Pressure 114/56 L 102/74 104/57 L Pulse Oximetry 93 94 Oxygen Delivery Method Room Air BMI result Body Mass Index 19.6 Labs 06/24/25 13:21 06/25/25 08:04 Medications Medications Current Medications Acetaminophen (Acetaminophen 325 Mg Tablet) 650 mg PO Q6H PRN PRN Reason: Headache/Pain, Scale 1-10 Last Admin: 07/15/25 10:10 Dose: 650 mg Al Hydroxide/Mg Hydroxide (Magnesium Hydrox/Alum Hydrox 30 Ml Oral.Susp) 30 ml PO Q6H PRN PRN Reason: Heartburn/Nausea Albuterol Sulfate (Albuterol Sulfate 90 Mcg 8 Gm Inhaler) 1 puff INHALE QID PRN PRN Reason: wheezing/SOB Brexpiprazole (Brexpiprazole 1 Mg Tablet) 0.5 mg PO BEDTIME [facility] Last Admin: 07/14/25 21:00 Dose: 0.5 mg Levothyroxine Sodium (Levothyroxine Sodium 50 Mcg Tablet) 50 mcg PO DAILY@0600 [facility] Last Admin: 07/15/25 05:21 Dose: 50 mcg Lidocaine (Lidocaine 4 % Patch Adh..Patch) 1 patch TRANSDERMA DAILY PRN PRN Reason: Pain Last Admin: 07/01/25 20:58 Dose: 1 patch Loperamide HCl (Loperamide Hcl 2 Mg Capsule) 2 mg PO Q4H PRN PRN Reason: loose stools Magnesium Hydroxide (Milk Of Magnesia 30 Ml Oral.Susp) 30 ml PO DAILY PRN PRN Reason: Constipation Midodrine (Midodrine Hcl 5 Mg Tablet) 5 mg PO TID@0900,1300,1700 [facility] Last Admin: 07/15/25 12:09 Dose: 5 mg Mirtazapine (Mirtazapine 15 Mg Tablet) 15 mg PO BEDTIME [facility] Last Admin: 07/14/25 21:00 Dose: 15 mg Sertraline HCl (Sertraline Hcl 100 Mg Tablet) 100 mg PO DAILY [facility] Last Admin: 07/15/25 08:16 Dose: 100 mg Tramadol HCl (Tramadol Hcl 50 Mg Tablet) 25 mg PO Q4H PRN PRN Reason: moderate, hip pain Last Admin: 07/07/25 09:14 Dose: 25 mg Trazodone HCl (Trazodone Hcl 50 Mg Tablet) 50 mg PO BEDTIME PRN PRN Reason: Insomnia Allergies Allergies Allergy/AdvReac Type Severity Reaction Status Date / Time penicillin V Allergy Unknown Unknown Verified 06/24/25 12:34 Assessment & Plan Assessment & Plan (1) Bipolar disorder with depression: Status: Acute Code(s): F31.9 - Bipolar disorder, unspecified (2) Cognitive impairment: Status: Acute Code(s): R41.89 - Other symptoms and signs involving cognitive functions and awareness Assessment and Plan: suspect it may be unipolar, no clear hx of hypomania or keisha. She does hx of trauma. Plan Ms. Chan is a 69 year-old woman hx of Bipolar (although do wander if it is more unipolar depression, hx of trauma and dysphoria). She was brought to [facility] by long time friend Carl due to increase anxious mood, feeling overwhelmed in context of impending eviction. She was here back in 12/2024 with similar presentation including increase anxious mood, feeling overwhelmed due to impending eviction. She is again noted to have difficulty remembering information including the fact that she had drops in BP and was discharged on midodrine, she does not remember this but continues to report feeling dizzy when standing up. She denies SI/HI. No psychosis or delusional content. We discussed risks, benefits and alternative treatment options. We discussed trying sertraline for depression. May consider discontinuing trileptal and rexulti. Monitor ortho VS, may need to restart midodrine. Pt discussed with SW referral to [facility]. (1) Bipolar disorder with depression: Status: Acute Code(s): F31.9 - Bipolar disorder, unspecified (2) Cognitive impairment: Status: Acute Code(s): R41.89 - Other symptoms and signs involving cognitive functions and awareness Assessment and Plan: She completed MOCA on 12/17/2024 scored 14/30, difficulties with executive function and visuospatial (2/5), attention, language repetition (0/2)/fluency (0/1), recall (0/5). Her orientation is intact, as well as naming. Shows vascular pattern of cognitive impairment. ACL scored 5. PLAN 1. Admit to S1, CV, 15 minutes checks for safety 2. start sertraline 25mg po daily, plan to titrate. 3. dc trileptal unclear therapeutic use. may lower rexulti. 4. obtain collateral information 5. Aftercare planning. 06/27 increase sertraline to 75mg po daily. lower rexulti to 0.5mg po qhs. 06/28, 06/29: no change in plan today 06/30 continue tx. loose stools, added immodium. 07/01 continue tx. monitor loose stools as it can be related to sertraline. 07/02 continue tx. 07/03 continue tx. increase sertraline 100mg po daily. 07/04 continue tx. 07/05: continue current management and treatment plan. 07/06: continue current management and treatment plan. 07/07 reports improvement in mood. no si/hi. taking medications. somewhat forgetful at times. 07/08 continue tx. 07/09 continue tx. pending placement. 07/10 continue tx. 07/11 continue tx. 07/12: stable. continue current mgmt. 07/13: stable presentation. continue current mgmt. 07/14 continue tx. 07/15 continue tx. Reason for continued inpatient stay Substantial Risk for: inability to function Time Spent With Patient Time: Total time managing care of this patient today ____ minutes.
[2025-07-15 17:01] VITALS: BP 119/64
[2025-07-15 19:36] VITALS: BP 128/65; PULSE 67; RESP 18; TEMP 36.6; O2SAT 97
--- NOTE | 2025-07-16 08:45 | P.PNPSI_ITS ---
Subjective Subjective Date of Service: 07/16/25 Reason For Visit: SI Subjective Notes: Conditional Voluntary Interim History: Pt slept through the night. She denies SI/HI. She continues to report mood is good and feels better than when she first came here. She is relief that she may go to rest home from here. No SI/HI. taking medications. denies any physical concerns. VS stable. Review of Systems Review of Systems No chest pain. No SOB. Dizziness. No abdominal pain. No constipation. No diarrhea. Yes all other systems are reviewed and are negative Constitutional: Reports no additional constitutional complaints Eyes: Reports no additional eye complaints Reports system reviewed and no additional complaints, except as documented Cardiovascular: Reports no additional cardiovascular complaints Respiratory: Reports no additional respiratory complaints Gastrointestinal: Reports change in stool character, Reports diarrhea and Reports loose stools Musculoskeletal: Reports abnormal gait (walker use) Skin/Breast: Reports system reviewed and no additional complaints, except as docu Reports abnormal gait (walker use) Psychiatric: Reports as per HPI Endocrine: Reports no additional endocrine complaints Hematologic/Lymphatic: Reports no additional hematologic/lymphatic complaints Allergic/Immunologic: Reports no additional allergic/immunologic complaints Mental Status Exam Mental Status Exam Narrative: Appearance: wearing hospital gown, thin, somewhat malnourished, in NAD Behavior: cooperative Psychomotor: no agitation or retardation noted, mild cogwheel on right arm. Speech: clear, normal rate/rhythm/volume, spontaneous TP: tangential TC: overwhelmed with impending eviction/homelessness Mood: euthymic Affect: congruent SI:none HI: none VH/AH: no overt signs Delusions:none Insight/judgment: impaired x 2. memory/cog: alert, oriented x 4. MOCA back on 12/2024 scored 14/30, difficulties with executive function and visuospatial (2/5), attention, language repetition (0/2)/fluency (0/1), recall (0/5). Her orientation is intact, as well as naming. Showing vascular pattern of cognitive impairment. Diagnostics Vital Signs (24Hr): Vital Signs - 24 hr 07/15/25 12:09 07/15/25 17:01 07/15/25 19:36 Temperature 98 F Pulse Rate 67 Respiratory Rate 18 Blood Pressure 104/57 L 119/64 128/65 Pulse Oximetry 97 Oxygen Delivery Method Room Air BMI result Body Mass Index 19.6 Labs 06/24/25 13:21 06/25/25 08:04 Medications Medications Current Medications Acetaminophen (Acetaminophen 325 Mg Tablet) 650 mg PO Q6H PRN PRN Reason: Headache/Pain, Scale 1-10 Last Admin: 07/15/25 10:10 Dose: 650 mg Al Hydroxide/Mg Hydroxide (Magnesium Hydrox/Alum Hydrox 30 Ml Oral.Susp) 30 ml PO Q6H PRN PRN Reason: Heartburn/Nausea Albuterol Sulfate (Albuterol Sulfate 90 Mcg 8 Gm Inhaler) 1 puff INHALE QID PRN PRN Reason: wheezing/SOB Brexpiprazole (Brexpiprazole 1 Mg Tablet) 0.5 mg PO BEDTIME [facility] Last Admin: 07/15/25 19:37 Dose: 0.5 mg Levothyroxine Sodium (Levothyroxine Sodium 50 Mcg Tablet) 50 mcg PO DAILY@0600 [facility] Last Admin: 07/16/25 05:12 Dose: 50 mcg Lidocaine (Lidocaine 4 % Patch Adh..Patch) 1 patch TRANSDERMA DAILY PRN PRN Reason: Pain Last Admin: 07/01/25 20:58 Dose: 1 patch Loperamide HCl (Loperamide Hcl 2 Mg Capsule) 2 mg PO Q4H PRN PRN Reason: loose stools Magnesium Hydroxide (Milk Of Magnesia 30 Ml Oral.Susp) 30 ml PO DAILY PRN PRN Reason: Constipation Midodrine (Midodrine Hcl 5 Mg Tablet) 5 mg PO TID@0900,1300,1700 [facility] Last Admin: 07/15/25 17:01 Dose: 5 mg Mirtazapine (Mirtazapine 15 Mg Tablet) 15 mg PO BEDTIME [facility] Last Admin: 07/15/25 19:37 Dose: 15 mg Sertraline HCl (Sertraline Hcl 100 Mg Tablet) 100 mg PO DAILY [facility] Last Admin: 07/15/25 08:16 Dose: 100 mg Tramadol HCl (Tramadol Hcl 50 Mg Tablet) 25 mg PO Q4H PRN PRN Reason: moderate, hip pain Last Admin: 07/07/25 09:14 Dose: 25 mg Trazodone HCl (Trazodone Hcl 50 Mg Tablet) 50 mg PO BEDTIME PRN PRN Reason: Insomnia Allergies Allergies Allergy/AdvReac Type Severity Reaction Status Date / Time penicillin V Allergy Unknown Unknown Verified 06/24/25 12:34 Assessment & Plan Assessment & Plan (1) Bipolar disorder with depression: Status: Acute Code(s): F31.9 - Bipolar disorder, unspecified (2) Cognitive impairment: Status: Acute Code(s): R41.89 - Other symptoms and signs involving cognitive functions and awareness Assessment and Plan: suspect it may be unipolar, no clear hx of hypomania or keisha. She does hx of trauma. Plan Ms. Chan is a 69 year-old woman hx of Bipolar (although do wander if it is more unipolar depression, hx of trauma and dysphoria). She was brought to [facility] by long time friend Carl due to increase anxious mood, feeling overwhelmed in context of impending eviction. She was here back in 12/2024 with similar presentation including increase anxious mood, feeling overwhelmed due to impending eviction. She is again noted to have difficulty remembering information including the fact that she had drops in BP and was discharged on midodrine, she does not remember this but continues to report feeling dizzy when standing up. She denies SI/HI. No psychosis or delusional content. We discussed risks, benefits and alternative treatment options. We discussed trying sertraline for depression. May consider discontinuing trileptal and rexulti. Monitor ortho VS, may need to restart midodrine. Pt discussed with SW referral to [facility]. (1) Bipolar disorder with depression: Status: Acute Code(s): F31.9 - Bipolar disorder, unspecified (2) Cognitive impairment: Status: Acute Code(s): R41.89 - Other symptoms and signs involving cognitive functions and awareness Assessment and Plan: She completed MOCA on 12/17/2024 scored 14/30, difficulties with executive function and visuospatial (2/5), attention, language repetition (0/2)/fluency (0/1), recall (0/5). Her orientation is intact, as well as naming. Shows vascular pattern of cognitive impairment. ACL scored 5. PLAN 1. Admit to S1, CV, 15 minutes checks for safety 2. start sertraline 25mg po daily, plan to titrate. 3. dc trileptal unclear therapeutic use. may lower rexulti. 4. obtain collateral information 5. Aftercare planning. 06/27 increase sertraline to 75mg po daily. lower rexulti to 0.5mg po qhs. 06/28, 06/29: no change in plan today 06/30 continue tx. loose stools, added immodium. 07/01 continue tx. monitor loose stools as it can be related to sertraline. 07/02 continue tx. 07/03 continue tx. increase sertraline 100mg po daily. 07/04 continue tx. 07/05: continue current management and treatment plan. 07/06: continue current management and treatment plan. 07/07 reports improvement in mood. no si/hi. taking medications. somewhat forgetful at times. 07/08 continue tx. 07/09 continue tx. pending placement. 07/10 continue tx. 07/11 continue tx. 07/12: stable. continue current mgmt. 07/13: stable presentation. continue current mgmt. 07/14 continue tx. 07/15 continue tx. 07/16 continue tx. awaiting placement. Reason for continued inpatient stay Substantial Risk for: inability to function Time Spent With Patient Time: Total time managing care of this patient today ____ minutes.
[2025-07-16 08:55] VITALS: BP 108/62; PULSE 90; RESP 18; TEMP 36.6; O2SAT 93
[2025-07-16 12:33] VITALS: BP 108/62
[2025-07-16 16:39] VITALS: BP 112/62
[2025-07-16 20:00] VITALS: BP 125/68; PULSE 67; RESP 16; TEMP 36.3; O2SAT 96
[2025-07-17 08:00] VITALS: BP 118/66; PULSE 93; RESP 16; TEMP 36.4; O2SAT 94
[2025-07-17 08:36] VITALS: BP 118/66
[2025-07-17 10:18] VITALS: BMI 19.3
[2025-07-17 13:15] VITALS: BP 98/64
--- NOTE | 2025-07-17 17:09 | HO.PSYCHPN ---
Subjective Subjective Date of Service: 07/17/25 Reason For Visit: SI Subjective Notes: Conditional Voluntary Interim History: Pt slept through the night. She has been visible on the unit. No SI/HI. reports mood is good. taking medications. Review of Systems Review of Systems No chest pain. No SOB. Dizziness. No abdominal pain. No constipation. No diarrhea. Yes all other systems are reviewed and are negative Constitutional: Reports no additional constitutional complaints Eyes: Reports no additional eye complaints Reports system reviewed and no additional complaints, except as documented Cardiovascular: Reports no additional cardiovascular complaints Respiratory: Reports no additional respiratory complaints Gastrointestinal: Reports change in stool character, Reports diarrhea and Reports loose stools Musculoskeletal: Reports abnormal gait (walker use) Skin/Breast: Reports system reviewed and no additional complaints, except as docu Reports abnormal gait (walker use) Psychiatric: Reports as per HPI Endocrine: Reports no additional endocrine complaints Hematologic/Lymphatic: Reports no additional hematologic/lymphatic complaints Allergic/Immunologic: Reports no additional allergic/immunologic complaints Mental Status Exam Mental Status Exam Narrative: Appearance: wearing hospital gown, thin, somewhat malnourished, in NAD Behavior: cooperative Psychomotor: no agitation or retardation noted, mild cogwheel on right arm. Speech: clear, normal rate/rhythm/volume, spontaneous TP: tangential TC: overwhelmed with impending eviction/homelessness Mood: euthymic Affect: congruent SI:none HI: none VH/AH: no overt signs Delusions:none Insight/judgment: impaired x 2. memory/cog: alert, oriented x 4. MOCA back on 12/2024 scored 14/30, difficulties with executive function and visuospatial (2/5), attention, language repetition (0/2)/fluency (0/1), recall (0/5). Her orientation is intact, as well as naming. Showing vascular pattern of cognitive impairment. Diagnostics Vital Signs (24Hr): Vital Signs - 24 hr 07/16/25 20:00 07/17/25 08:00 07/17/25 08:36 Temperature 97.4 F 97.6 F Pulse Rate 67 93 Respiratory Rate 16 16 Blood Pressure 125/68 118/66 118/66 Pulse Oximetry 96 94 Oxygen Delivery Method Room Air Room Air 07/17/25 13:15 Temperature Pulse Rate Respiratory Rate Blood Pressure 98/64 Pulse Oximetry Oxygen Delivery Method BMI result Body Mass Index 19.3 Labs 06/24/25 13:21 06/25/25 08:04 Medications Medications Current Medications Acetaminophen (Acetaminophen 325 Mg Tablet) 650 mg PO Q6H PRN PRN Reason: Headache/Pain, Scale 1-10 Last Admin: 07/17/25 12:13 Dose: 650 mg Al Hydroxide/Mg Hydroxide (Magnesium Hydrox/Alum Hydrox 30 Ml Oral.Susp) 30 ml PO Q6H PRN PRN Reason: Heartburn/Nausea Albuterol Sulfate (Albuterol Sulfate 90 Mcg 8 Gm Inhaler) 1 puff INHALE QID PRN PRN Reason: wheezing/SOB Brexpiprazole (Brexpiprazole 1 Mg Tablet) 0.5 mg PO BEDTIME [facility] Last Admin: 07/16/25 20:38 Dose: 0.5 mg Levothyroxine Sodium (Levothyroxine Sodium 50 Mcg Tablet) 50 mcg PO DAILY@0600 [facility] Last Admin: 07/17/25 05:44 Dose: 50 mcg Lidocaine (Lidocaine 4 % Patch Adh..Patch) 1 patch TRANSDERMA DAILY PRN PRN Reason: Pain Last Admin: 07/01/25 20:58 Dose: 1 patch Loperamide HCl (Loperamide Hcl 2 Mg Capsule) 2 mg PO Q4H PRN PRN Reason: loose stools Magnesium Hydroxide (Milk Of Magnesia 30 Ml Oral.Susp) 30 ml PO DAILY PRN PRN Reason: Constipation Midodrine (Midodrine Hcl 5 Mg Tablet) 5 mg PO TID@0900,1300,1700 [facility] Last Admin: 07/17/25 13:15 Dose: 5 mg Mirtazapine (Mirtazapine 15 Mg Tablet) 15 mg PO BEDTIME [facility] Last Admin: 07/16/25 20:38 Dose: 15 mg Sertraline HCl (Sertraline Hcl 100 Mg Tablet) 100 mg PO DAILY [facility] Last Admin: 07/17/25 08:37 Dose: 100 mg Tramadol HCl (Tramadol Hcl 50 Mg Tablet) 25 mg PO Q4H PRN PRN Reason: moderate, hip pain Last Admin: 07/07/25 09:14 Dose: 25 mg Trazodone HCl (Trazodone Hcl 50 Mg Tablet) 50 mg PO BEDTIME PRN PRN Reason: Insomnia Allergies Allergies Allergy/AdvReac Type Severity Reaction Status Date / Time penicillin V Allergy Unknown Unknown Verified 06/24/25 12:34 Assessment & Plan Assessment & Plan (1) Bipolar disorder with depression: Status: Acute Code(s): F31.9 - Bipolar disorder, unspecified (2) Cognitive impairment: Status: Acute Code(s): R41.89 - Other symptoms and signs involving cognitive functions and awareness Assessment and Plan: suspect it may be unipolar, no clear hx of hypomania or keisha. She does hx of trauma. Plan Ms. Chan is a 69 year-old woman hx of Bipolar (although do wander if it is more unipolar depression, hx of trauma and dysphoria). She was brought to [facility] by long time friend Carl due to increase anxious mood, feeling overwhelmed in context of impending eviction. She was here back in 12/2024 with similar presentation including increase anxious mood, feeling overwhelmed due to impending eviction. She is again noted to have difficulty remembering information including the fact that she had drops in BP and was discharged on midodrine, she does not remember this but continues to report feeling dizzy when standing up. She denies SI/HI. No psychosis or delusional content. We discussed risks, benefits and alternative treatment options. We discussed trying sertraline for depression. May consider discontinuing trileptal and rexulti. Monitor ortho VS, may need to restart midodrine. Pt discussed with SW referral to [facility]. (1) Bipolar disorder with depression: Status: Acute Code(s): F31.9 - Bipolar disorder, unspecified (2) Cognitive impairment: Status: Acute Code(s): R41.89 - Other symptoms and signs involving cognitive functions and awareness Assessment and Plan: She completed MOCA on 12/17/2024 scored 14/30, difficulties with executive function and visuospatial (2/5), attention, language repetition (0/2)/fluency (0/1), recall (0/5). Her orientation is intact, as well as naming. Shows vascular pattern of cognitive impairment. ACL scored 5. PLAN 1. Admit to S1, CV, 15 minutes checks for safety 2. start sertraline 25mg po daily, plan to titrate. 3. dc trileptal unclear therapeutic use. may lower rexulti. 4. obtain collateral information 5. Aftercare planning. 06/27 increase sertraline to 75mg po daily. lower rexulti to 0.5mg po qhs. 06/28, 06/29: no change in plan today 06/30 continue tx. loose stools, added immodium. 07/01 continue tx. monitor loose stools as it can be related to sertraline. 07/02 continue tx. 07/03 continue tx. increase sertraline 100mg po daily. 07/04 continue tx. 07/05: continue current management and treatment plan. 07/06: continue current management and treatment plan. 07/07 reports improvement in mood. no si/hi. taking medications. somewhat forgetful at times. 07/08 continue tx. 07/09 continue tx. pending placement. 07/10 continue tx. 07/11 continue tx. 07/12: stable. continue current mgmt. 07/13: stable presentation. continue current mgmt. 07/14 continue tx. 07/15 continue tx. 07/16 continue tx. awaiting placement. 07/17 continue tx. Reason for continued inpatient stay Substantial Risk for: inability to function Time Spent With Patient Time: Total time managing care of this patient today ____ minutes.
[2025-07-17 17:43] VITALS: BP 112/57
[2025-07-17 20:00] VITALS: BP 130/72; PULSE 63; RESP 18; TEMP 36.6; O2SAT 96
[2025-07-18 08:00] VITALS: BP 103/56; PULSE 88; RESP 16; TEMP 36.7; O2SAT 97
[2025-07-18 08:42] VITALS: BP 103/56
[2025-07-18 12:56] VITALS: BP 109/63
--- NOTE | 2025-07-18 16:29 | HO.PSYCHPN ---
Subjective Subjective Date of Service: 07/18/25 Reason For Visit: SI Interim History: Pt slept through the night. She has been visible on the unit. No SI/HI. reports mood is good. taking medications. Review of Systems Review of Systems No chest pain. No SOB. Dizziness. No abdominal pain. No constipation. No diarrhea. Yes all other systems are reviewed and are negative Constitutional: Reports no additional constitutional complaints Eyes: Reports no additional eye complaints Reports system reviewed and no additional complaints, except as documented Cardiovascular: Reports no additional cardiovascular complaints Respiratory: Reports no additional respiratory complaints Gastrointestinal: Reports change in stool character, Reports diarrhea and Reports loose stools Musculoskeletal: Reports abnormal gait (walker use) Skin/Breast: Reports system reviewed and no additional complaints, except as docu Reports abnormal gait (walker use) Psychiatric: Reports as per HPI Endocrine: Reports no additional endocrine complaints Hematologic/Lymphatic: Reports no additional hematologic/lymphatic complaints Allergic/Immunologic: Reports no additional allergic/immunologic complaints Mental Status Exam Mental Status Exam Narrative: Appearance: wearing hospital gown, thin, somewhat malnourished, in NAD Behavior: cooperative Psychomotor: no agitation or retardation noted, mild cogwheel on right arm. Speech: clear, normal rate/rhythm/volume, spontaneous TP: tangential TC: overwhelmed with impending eviction/homelessness Mood: euthymic Affect: congruent SI:none HI: none VH/AH: no overt signs Delusions:none Insight/judgment: impaired x 2. memory/cog: alert, oriented x 4. MOCA back on 12/2024 scored 14/30, difficulties with executive function and visuospatial (2/5), attention, language repetition (0/2)/fluency (0/1), recall (0/5). Her orientation is intact, as well as naming. Showing vascular pattern of cognitive impairment. Diagnostics Vital Signs (24Hr): Vital Signs - 24 hr 07/17/25 17:43 07/17/25 20:00 07/18/25 08:00 Temperature 97.8 F 98.1 F Pulse Rate 63 88 Respiratory Rate 18 16 Blood Pressure 112/57 L 130/72 103/56 L Pulse Oximetry 96 97 Oxygen Delivery Method Room Air Room Air 07/18/25 08:42 07/18/25 12:56 Temperature Pulse Rate Respiratory Rate Blood Pressure 103/56 L 109/63 Pulse Oximetry Oxygen Delivery Method BMI result Body Mass Index 19.3 Labs 06/24/25 13:21 06/25/25 08:04 Medications Medications Current Medications Acetaminophen (Acetaminophen 325 Mg Tablet) 650 mg PO Q6H PRN PRN Reason: Headache/Pain, Scale 1-10 Last Admin: 07/17/25 12:13 Dose: 650 mg Al Hydroxide/Mg Hydroxide (Magnesium Hydrox/Alum Hydrox 30 Ml Oral.Susp) 30 ml PO Q6H PRN PRN Reason: Heartburn/Nausea Albuterol Sulfate (Albuterol Sulfate 90 Mcg 8 Gm Inhaler) 1 puff INHALE QID PRN PRN Reason: wheezing/SOB Brexpiprazole (Brexpiprazole 1 Mg Tablet) 0.5 mg PO BEDTIME [facility] Last Admin: 07/17/25 20:05 Dose: 0.5 mg Levothyroxine Sodium (Levothyroxine Sodium 50 Mcg Tablet) 50 mcg PO DAILY@0600 [facility] Last Admin: 07/18/25 05:37 Dose: 50 mcg Lidocaine (Lidocaine 4 % Patch Adh..Patch) 1 patch TRANSDERMA DAILY PRN PRN Reason: Pain Last Admin: 07/01/25 20:58 Dose: 1 patch Loperamide HCl (Loperamide Hcl 2 Mg Capsule) 2 mg PO Q4H PRN PRN Reason: loose stools Magnesium Hydroxide (Milk Of Magnesia 30 Ml Oral.Susp) 30 ml PO DAILY PRN PRN Reason: Constipation Midodrine (Midodrine Hcl 5 Mg Tablet) 5 mg PO TID@0900,1300,1700 [facility] Last Admin: 07/18/25 13:01 Dose: 5 mg Mirtazapine (Mirtazapine 15 Mg Tablet) 15 mg PO BEDTIME [facility] Last Admin: 07/17/25 20:05 Dose: 15 mg Sertraline HCl (Sertraline Hcl 100 Mg Tablet) 100 mg PO DAILY [facility] Last Admin: 07/18/25 08:42 Dose: 100 mg Tramadol HCl (Tramadol Hcl 50 Mg Tablet) 25 mg PO Q4H PRN PRN Reason: moderate, hip pain Last Admin: 07/18/25 13:45 Dose: 25 mg Trazodone HCl (Trazodone Hcl 50 Mg Tablet) 50 mg PO BEDTIME PRN PRN Reason: Insomnia Allergies Allergies Allergy/AdvReac Type Severity Reaction Status Date / Time penicillin V Allergy Unknown Unknown Verified 06/24/25 12:34 Assessment & Plan Assessment & Plan (1) Bipolar disorder with depression: Status: Acute Code(s): F31.9 - Bipolar disorder, unspecified (2) Cognitive impairment: Status: Acute Code(s): R41.89 - Other symptoms and signs involving cognitive functions and awareness Assessment and Plan: suspect it may be unipolar, no clear hx of hypomania or keisha. She does hx of trauma. Plan Ms. Chan is a 69 year-old woman hx of Bipolar (although do wander if it is more unipolar depression, hx of trauma and dysphoria). She was brought [place] [facility] [place] long time friend Carl due to increase anxious mood, feeling overwhelmed in context of impending eviction. She was here back in 12/2024 with similar presentation including increase anxious mood, feeling overwhelmed due to impending eviction. She is again noted to have difficulty remembering information including the fact that she had drops in BP and was discharged on midodrine, she does not remember this but continues to report feeling dizzy when standing up. She denies SI/HI. No psychosis or delusional content. We discussed risks, benefits and alternative treatment options. We discussed trying sertraline for depression. May consider discontinuing trileptal and rexulti. Monitor ortho VS, may need to restart midodrine. Pt discussed with SW referral to [facility]. (1) Bipolar disorder with depression: Status: Acute Code(s): F31.9 - Bipolar disorder, unspecified (2) Cognitive impairment: Status: Acute Code(s): R41.89 - Other symptoms and signs involving cognitive functions and awareness Assessment and Plan: She completed MOCA on 12/17/2024 scored 14/30, difficulties with executive function and visuospatial (2/5), attention, language repetition (0/2)/fluency (0/1), recall (0/5). Her orientation is intact, as well as naming. Shows vascular pattern of cognitive impairment. ACL scored 5. PLAN 1. Admit to S1, CV, 15 minutes checks for safety 2. start sertraline 25mg po daily, plan to titrate. 3. dc trileptal unclear therapeutic use. may lower rexulti. 4. obtain collateral information 5. Aftercare planning. 06/27 increase sertraline to 75mg po daily. lower rexulti to 0.5mg po qhs. 06/28, 06/29: no change in plan today 06/30 continue tx. loose stools, added immodium. 07/01 continue tx. monitor loose stools as it can be related to sertraline. 07/02 continue tx. 07/03 continue tx. increase sertraline 100mg po daily. 07/04 continue tx. 07/05: continue current management and treatment plan. 07/06: continue current management and treatment plan. 07/07 reports improvement in mood. no si/hi. taking medications. somewhat forgetful at times. 07/08 continue tx. 07/09 continue tx. pending placement. 07/10 continue tx. 07/11 continue tx. 07/12: stable. continue current mgmt. 07/13: stable presentation. continue current mgmt. 07/14 continue tx. 07/15 continue tx. 07/16 continue tx. awaiting placement. 07/17 continue tx. 07/18 continue tx. Reason for continued inpatient stay Substantial Risk for: inability to function Time Spent With Patient Time: Total time managing care of this patient today ____ minutes.
[2025-07-18 16:48] VITALS: BP 125/63
[2025-07-18 20:00] VITALS: BP 114/61; PULSE 63; RESP 16; TEMP 36.7; O2SAT 97
[2025-07-19 08:00] VITALS: BP 105/56; PULSE 84; RESP 16; TEMP 36.8; O2SAT 96
[2025-07-19 08:40] VITALS: BP 105/56
[2025-07-19 13:19] VITALS: BP 94/53
--- NOTE | 2025-07-19 14:29 | P.PNPSI_ITS ---
Subjective Subjective Date of Service: 07/19/25 Reason For Visit: SI Subjective Notes: Conditional Voluntary Interim History: Medical record and nursing notes reviewed; case discussed during rounds with team/nursing staff, and met with patient for supportive therapy/psychoeducation, as well as medication management. Meet with patient out out on the porch while patient has some NURY. Very pleasant and cooperative. Reports she does not know the discharge plan yet but she has own apartment and that her BF lives in the same building. No SI/SIB/HI/AVH expressed, no negative emotions. Continue with current plan. Medication Compliance: Yes Side effects from medications: No Attending Groups: Intermittent Review of Systems Acute medical concerns: No Medical Review of Systems: unchanged Review of Systems Review of Systems No SOB/N/V, no physical symptoms. Ambulating using walker. Yes all other systems are reviewed and are negative Mental Status Exam Mental Status Exam Narrative: Appearance: wearing hospital gown, thin, somewhat malnourished, in NAD Behavior: cooperative Psychomotor: no agitation or retardation noted, mild cogwheel on right arm. Speech: clear, normal rate/rhythm/volume, spontaneous TP: not tangential TC: overwhelmed with impending eviction/homelessness Mood: euthymic Affect: congruent SI:none HI: none VH/AH: no overt signs Delusions:none Insight/judgment: impaired x 2. memory/cog: alert, oriented x 4. MOCA back on 12/2024 scored 14/30, difficulties with executive function and visuospatial (2/5), attention, language repetition (0/2)/fluency (0/1), recall (0/5). Her orientation is intact, as well as naming. Showing vascular pattern of cognitive impairment. Diagnostics Vital Signs (24Hr): Vital Signs - 24 hr 07/18/25 16:48 07/18/25 20:00 07/19/25 08:00 Temperature 98.1 F 98.2 F Pulse Rate 63 84 Respiratory Rate 16 16 Blood Pressure 125/63 114/61 105/56 L Pulse Oximetry 97 96 Oxygen Delivery Method Room Air Room Air 07/19/25 08:40 07/19/25 13:19 Temperature Pulse Rate Respiratory Rate Blood Pressure 105/56 L 94/53 L Pulse Oximetry Oxygen Delivery Method BMI result Body Mass Index 19.3 Labs 06/24/25 13:21 06/25/25 08:04 Medications Medications Current Medications Acetaminophen (Acetaminophen 325 Mg Tablet) 650 mg PO Q6H PRN PRN Reason: Headache/Pain, Scale 1-10 Last Admin: 07/17/25 12:13 Dose: 650 mg Al Hydroxide/Mg Hydroxide (Magnesium Hydrox/Alum Hydrox 30 Ml Oral.Susp) 30 ml PO Q6H PRN PRN Reason: Heartburn/Nausea Albuterol Sulfate (Albuterol Sulfate 90 Mcg 8 Gm Inhaler) 1 puff INHALE QID PRN PRN Reason: wheezing/SOB Brexpiprazole (Brexpiprazole 1 Mg Tablet) 0.5 mg PO BEDTIME [facility] Last Admin: 07/18/25 20:09 Dose: 0.5 mg Levothyroxine Sodium (Levothyroxine Sodium 50 Mcg Tablet) 50 mcg PO DAILY@0600 [facility] Last Admin: 07/19/25 05:30 Dose: 50 mcg Lidocaine (Lidocaine 4 % Patch Adh..Patch) 1 patch TRANSDERMA DAILY PRN PRN Reason: Pain Last Admin: 07/01/25 20:58 Dose: 1 patch Loperamide HCl (Loperamide Hcl 2 Mg Capsule) 2 mg PO Q4H PRN PRN Reason: loose stools Magnesium Hydroxide (Milk Of Magnesia 30 Ml Oral.Susp) 30 ml PO DAILY PRN PRN Reason: Constipation Midodrine (Midodrine Hcl 5 Mg Tablet) 5 mg PO TID@0900,1300,1700 [facility] Last Admin: 07/19/25 13:19 Dose: 5 mg Mirtazapine (Mirtazapine 15 Mg Tablet) 15 mg PO BEDTIME [facility] Last Admin: 07/18/25 20:09 Dose: 15 mg Sertraline HCl (Sertraline Hcl 100 Mg Tablet) 100 mg PO DAILY [facility] Last Admin: 07/19/25 08:40 Dose: 100 mg Tramadol HCl (Tramadol Hcl 50 Mg Tablet) 25 mg PO Q4H PRN PRN Reason: moderate, hip pain Last Admin: 07/18/25 13:45 Dose: 25 mg Trazodone HCl (Trazodone Hcl 50 Mg Tablet) 50 mg PO BEDTIME PRN PRN Reason: Insomnia Allergies Allergies Allergy/AdvReac Type Severity Reaction Status Date / Time penicillin V Allergy Unknown Unknown Verified 06/24/25 12:34 Assessment & Plan Assessment & Plan (1) Bipolar disorder with depression: Status: Acute Code(s): F31.9 - Bipolar disorder, unspecified (2) Cognitive impairment: Status: Acute Code(s): R41.89 - Other symptoms and signs involving cognitive functions and awareness Assessment and Plan: suspect it may be unipolar, no clear hx of hypomania or keisha. She does hx of trauma. Plan Ms. Chan is a 69 year-old woman hx of Bipolar (although do wander if it is more unipolar depression, hx of trauma and dysphoria). She was brought to [facility] by long time friend Carl due to increase anxious mood, feeling overwhelmed in context of impending eviction. She was here back in 12/2024 with similar presentation including increase anxious mood, feeling overwhelmed due to impending eviction. She is again noted to have difficulty remembering information including the fact that she had drops in BP and was discharged on midodrine, she does not remember this but continues to report feeling dizzy when standing up. She denies SI/HI. No psychosis or delusional content. We discussed risks, benefits and alternative treatment options. We discussed trying sertraline for depression. May consider discontinuing trileptal and rexulti. Monitor ortho VS, may need to restart midodrine. Pt discussed with SW referral to [facility]. (1) Bipolar disorder with depression: Status: Acute Code(s): F31.9 - Bipolar disorder, unspecified (2) Cognitive impairment: Status: Acute Code(s): R41.89 - Other symptoms and signs involving cognitive functions and awareness Assessment and Plan: She completed MOCA on 12/17/2024 scored 14/30, difficulties with executive function and visuospatial (2/5), attention, language repetition (0/2)/fluency (0/1), recall (0/5). Her orientation is intact, as well as naming. Shows vascular pattern of cognitive impairment. ACL scored 5. PLAN 1. Admit to S1, CV, 15 minutes checks for safety 2. start sertraline 25mg po daily, plan to titrate. 3. dc trileptal unclear therapeutic use. may lower rexulti. 4. obtain collateral information 5. Aftercare planning. 06/27 increase sertraline to 75mg po daily. lower rexulti to 0.5mg po qhs. 06/28, 06/29: no change in plan today 06/30 continue tx. loose stools, added immodium. 07/01 continue tx. monitor loose stools as it can be related to sertraline. 07/02 continue tx. 07/03 continue tx. increase sertraline 100mg po daily. 07/04 continue tx. 07/05: continue current management and treatment plan. 07/06: continue current management and treatment plan. 07/07 reports improvement in mood. no si/hi. taking medications. somewhat forgetful at times. 07/08 continue tx. 07/09 continue tx. pending placement. 07/10 continue tx. 07/11 continue tx. 07/12: stable. continue current mgmt. 07/13: stable presentation. continue current mgmt. 07/14 continue tx. 07/15 continue tx. 07/16 continue tx. awaiting placement. 07/17 continue tx. 07/19/25: Meet with patient out out on the porch while patient has some NURY. Very pleasant and cooperative. Reports she does not know the discharge plan yet but she has own apartment and that her BF lives in the same building. No SI/SIB/HI/AVH expressed, no negative emotions. Continue with current plan. Patient educated on: therapeutic strategies Reason for continued inpatient stay Substantial Risk for: med/psych decompensation Time Spent With Patient Time: Total time managing care of this patient today ____ minutes.
[2025-07-19 17:11] VITALS: BP 113/60
[2025-07-19 20:00] VITALS: BP 117/56; PULSE 70; RESP 16; TEMP 36.6; O2SAT 96
[2025-07-20 08:00] VITALS: BP 104/68; PULSE 89; RESP 17; TEMP 36.7; O2SAT 96
[2025-07-20 08:39] VITALS: BP 104/68
[2025-07-20 13:29] VITALS: BP 106/54
[2025-07-20 17:16] VITALS: BP 121/70
--- NOTE | 2025-07-20 19:07 | HO.PSYCHPN ---
Subjective Subjective Date of Service: 07/20/25 Reason For Visit: SI Subjective Notes: Conditional Voluntary Interim History: Medical record and nursing notes reviewed; case discussed during rounds with team/nursing staff, and met with patient for supportive therapy/psychoeducation, as well as medication management. No issue with sleep or appetite, compliant with meds, visible and attended groups as well as fresh air. Reports pain on thigh 5/ 10- muscular pain. Denies anxiety but reports depression is a 3/10. Patient ambulate using a walker. Blood pressure within normal limit. No behavior issues. Medication Compliance: Yes Side effects from medications: No Attending Groups: Yes Review of Systems Acute medical concerns: No Medical Review of Systems: unchanged Review of Systems Review of Systems No SOB/N/V, no physical symptoms. Ambulating using walker. Yes all other systems are reviewed and are negative Mental Status Exam Mental Status Exam Narrative: Appearance: wearing hospital gown, thin, somewhat malnourished, in NAD Behavior: cooperative Psychomotor: no agitation or retardation noted, mild cogwheel on right arm. Speech: clear, normal rate/rhythm/volume, spontaneous TP: not tangential TC: overwhelmed with impending eviction/homelessness Mood: euthymic Affect: congruent SI:none HI: none VH/AH: no overt signs Delusions:none Insight/judgment: impaired x 2. memory/cog: alert, oriented x 4. MOCA back on 12/2024 scored 14/30, difficulties with executive function and visuospatial (2/5), attention, language repetition (0/2)/fluency (0/1), recall (0/5). Her orientation is intact, as well as naming. Showing vascular pattern of cognitive impairment. Diagnostics Vital Signs (24Hr): Vital Signs - 24 hr 07/19/25 20:00 07/20/25 08:00 07/20/25 08:39 Temperature 98 F 98.1 F Pulse Rate 70 89 Respiratory Rate 16 17 Blood Pressure 117/56 L 104/68 104/68 Pulse Oximetry 96 96 Oxygen Delivery Method Room Air Room Air 07/20/25 13:29 07/20/25 17:16 Temperature Pulse Rate Respiratory Rate Blood Pressure 106/54 L 121/70 Pulse Oximetry Oxygen Delivery Method BMI result Body Mass Index 19.3 Labs 06/24/25 13:21 06/25/25 08:04 Medications Medications Current Medications Acetaminophen (Acetaminophen 325 Mg Tablet) 650 mg PO Q6H PRN PRN Reason: Headache/Pain, Scale 1-10 Last Admin: 07/17/25 12:13 Dose: 650 mg Al Hydroxide/Mg Hydroxide (Magnesium Hydrox/Alum Hydrox 30 Ml Oral.Susp) 30 ml PO Q6H PRN PRN Reason: Heartburn/Nausea Albuterol Sulfate (Albuterol Sulfate 90 Mcg 8 Gm Inhaler) 1 puff INHALE QID PRN PRN Reason: wheezing/SOB Brexpiprazole (Brexpiprazole 1 Mg Tablet) 0.5 mg PO BEDTIME [facility] Last Admin: 07/19/25 19:57 Dose: 0.5 mg Levothyroxine Sodium (Levothyroxine Sodium 50 Mcg Tablet) 50 mcg PO DAILY@0600 [facility] Last Admin: 07/20/25 05:32 Dose: 50 mcg Lidocaine (Lidocaine 4 % Patch Adh..Patch) 1 patch TRANSDERMA DAILY PRN PRN Reason: Pain Last Admin: 07/01/25 20:58 Dose: 1 patch Loperamide HCl (Loperamide Hcl 2 Mg Capsule) 2 mg PO Q4H PRN PRN Reason: loose stools Magnesium Hydroxide (Milk Of Magnesia 30 Ml Oral.Susp) 30 ml PO DAILY PRN PRN Reason: Constipation Midodrine (Midodrine Hcl 5 Mg Tablet) 5 mg PO TID@0900,1300,1700 [facility] Last Admin: 07/20/25 17:16 Dose: 5 mg Mirtazapine (Mirtazapine 15 Mg Tablet) 15 mg PO BEDTIME [facility] Last Admin: 07/19/25 19:58 Dose: 15 mg Sertraline HCl (Sertraline Hcl 100 Mg Tablet) 100 mg PO DAILY [facility] Last Admin: 07/20/25 08:39 Dose: 100 mg Tramadol HCl (Tramadol Hcl 50 Mg Tablet) 25 mg PO Q4H PRN PRN Reason: moderate, hip pain Last Admin: 07/19/25 18:07 Dose: 25 mg Trazodone HCl (Trazodone Hcl 50 Mg Tablet) 50 mg PO BEDTIME PRN PRN Reason: Insomnia Allergies Allergies Allergy/AdvReac Type Severity Reaction Status Date / Time penicillin V Allergy Unknown Unknown Verified 06/24/25 12:34 Assessment & Plan Assessment & Plan (1) Bipolar disorder with depression: Status: Acute Code(s): F31.9 - Bipolar disorder, unspecified (2) Cognitive impairment: Status: Acute Code(s): R41.89 - Other symptoms and signs involving cognitive functions and awareness Assessment and Plan: suspect it may be unipolar, no clear hx of hypomania or keisha. She does hx of trauma. Plan Ms. Chan is a 69 year-old woman hx of Bipolar (although do wander if it is more unipolar depression, hx of trauma and dysphoria). She was brought [place] [facility] [facility] [place] long time friend Carl due to increase anxious mood, feeling overwhelmed in context of impending eviction. She was here back in 12/2024 with similar presentation including increase anxious mood, feeling overwhelmed due to impending eviction. She is again noted to have difficulty remembering information including the fact that she had drops in BP and was discharged on midodrine, she does not remember this but continues to report feeling dizzy when standing up. She denies SI/HI. No psychosis or delusional content. We discussed risks, benefits and alternative treatment options. We discussed trying sertraline for depression. May consider discontinuing trileptal and rexulti. Monitor ortho VS, may need to restart midodrine. Pt discussed with SW referral to [facility]. (1) Bipolar disorder with depression: Status: Acute Code(s): F31.9 - Bipolar disorder, unspecified (2) Cognitive impairment: Status: Acute Code(s): R41.89 - Other symptoms and signs involving cognitive functions and awareness Assessment and Plan: She completed MOCA on 12/17/2024 scored 14/30, difficulties with executive function and visuospatial (2/5), attention, language repetition (0/2)/fluency (0/1), recall (0/5). Her orientation is intact, as well as naming. Shows vascular pattern of cognitive impairment. ACL scored 5. PLAN 1. Admit to S1, CV, 15 minutes checks for safety 2. start sertraline 25mg po daily, plan to titrate. 3. dc trileptal unclear therapeutic use. may lower rexulti. 4. obtain collateral information 5. Aftercare planning. 06/27 increase sertraline to 75mg po daily. lower rexulti to 0.5mg po qhs. 06/28, 06/29: no change in plan today 06/30 continue tx. loose stools, added immodium. 07/01 continue tx. monitor loose stools as it can be related to sertraline. 07/02 continue tx. 07/03 continue tx. increase sertraline 100mg po daily. 07/04 continue tx. 07/05: continue current management and treatment plan. 07/06: continue current management and treatment plan. 07/07 reports improvement in mood. no si/hi. taking medications. somewhat forgetful at times. 07/08 continue tx. 07/09 continue tx. pending placement. 07/10 continue tx. 07/11 continue tx. 07/12: stable. continue current mgmt. 07/13: stable presentation. continue current mgmt. 07/14 continue tx. 07/15 continue tx. 07/16 continue tx. awaiting placement. 07/17 continue tx. 07/19/25: Meet with patient out out on the porch while patient has some NURY. Very pleasant and cooperative. Reports she does not know the discharge plan yet but she has own apartment and that her BF lives in the same building. No SI/SIB/HI/AVH expressed, no negative emotions. Continue with current plan. 07/20/25: No issue with sleep or appetite, compliant with meds, visible and attended groups as well as fresh air. Reports pain on thigh 5/ 10- muscular pain. Denies anxiety but reports depression is a 3/10. Patient ambulate using a walker. Blood pressure within normal limit. No behavior issues. Patient educated on: diagnosis, medication risk/benefits and therapeutic strategies Informed Consent: understands Reason for continued inpatient stay Substantial Risk for: med/psych decompensation Time Spent With Patient Time: Total time managing care of this patient today ____ minutes.
[2025-07-20 19:51] VITALS: BP 119/55; PULSE 71; RESP 16; TEMP 36.7; O2SAT 97
[2025-07-21 08:10] VITALS: BP 121/56; PULSE 88; RESP 16; TEMP 36.6; O2SAT 98
[2025-07-21 12:22] VITALS: BP 113/67; PULSE 93
--- NOTE | 2025-07-21 14:15 | P.PNPSI_ITS ---
Subjective Subjective Date of Service: 07/21/25 Reason For Visit: SI Subjective Notes: Conditional Voluntary Interim History: Pt slept through the night. She reports mood is doing okay. She reports new pt was loud yesterday but she kept to herself. No SI/HI. taking medications as prescribed. She takes tramadol for hip pain with good effect. No psychosis or delusions. Review of Systems Review of Systems No SOB/N/V, no physical symptoms. Ambulating using walker. Yes all other systems are reviewed and are negative Constitutional: Reports no additional constitutional complaints Eyes: Reports no additional eye complaints Reports system reviewed and no additional complaints, except as documented Cardiovascular: Reports no additional cardiovascular complaints Respiratory: Reports no additional respiratory complaints Gastrointestinal: Reports change in stool character, Reports diarrhea and Reports loose stools Musculoskeletal: Reports abnormal gait (walker use) Skin/Breast: Reports system reviewed and no additional complaints, except as docu Reports abnormal gait (walker use) Psychiatric: Reports as per HPI Endocrine: Reports no additional endocrine complaints Hematologic/Lymphatic: Reports no additional hematologic/lymphatic complaints Allergic/Immunologic: Reports no additional allergic/immunologic complaints Mental Status Exam Mental Status Exam Narrative: Appearance: wearing hospital gown, thin, somewhat malnourished, in NAD Behavior: cooperative Psychomotor: no agitation or retardation noted, mild cogwheel on right arm. Speech: clear, normal rate/rhythm/volume, spontaneous TP: not tangential TC: overwhelmed with impending eviction/homelessness Mood: euthymic Affect: congruent SI:none HI: none VH/AH: no overt signs Delusions:none Insight/judgment: impaired x 2. memory/cog: alert, oriented x 4. MOCA back on 12/2024 scored 14/30, difficulties with executive function and visuospatial (2/5), attention, language repetition (0/2)/fluency (0/1), recall (0/5). Her orientation is intact, as well as naming. Showing vascular pattern of cognitive impairment. Diagnostics Vital Signs (24Hr): Vital Signs - 24 hr 07/20/25 17:16 07/20/25 19:51 07/21/25 08:10 Temperature 98.1 F 97.9 F Pulse Rate 71 88 Respiratory Rate 16 16 Blood Pressure 121/70 119/55 L 121/56 L Pulse Oximetry 97 98 Oxygen Delivery Method Room Air Room Air 07/21/25 12:22 Temperature Pulse Rate 93 Respiratory Rate Blood Pressure 113/67 Pulse Oximetry Oxygen Delivery Method BMI result Body Mass Index 19.3 Labs 06/24/25 13:21 06/25/25 08:04 Medications Medications Current Medications Acetaminophen (Acetaminophen 325 Mg Tablet) 650 mg PO Q6H PRN PRN Reason: Headache/Pain, Scale 1-10 Last Admin: 07/17/25 12:13 Dose: 650 mg Al Hydroxide/Mg Hydroxide (Magnesium Hydrox/Alum Hydrox 30 Ml Oral.Susp) 30 ml PO Q6H PRN PRN Reason: Heartburn/Nausea Albuterol Sulfate (Albuterol Sulfate 90 Mcg 8 Gm Inhaler) 1 puff INHALE QID PRN PRN Reason: wheezing/SOB Brexpiprazole (Brexpiprazole 1 Mg Tablet) 0.5 mg PO BEDTIME [facility] Last Admin: 07/20/25 19:52 Dose: 0.5 mg Levothyroxine Sodium (Levothyroxine Sodium 50 Mcg Tablet) 50 mcg PO DAILY@0600 [facility] Last Admin: 07/21/25 06:07 Dose: 50 mcg Lidocaine (Lidocaine 4 % Patch Adh..Patch) 1 patch TRANSDERMA DAILY PRN PRN Reason: Pain Last Admin: 07/01/25 20:58 Dose: 1 patch Loperamide HCl (Loperamide Hcl 2 Mg Capsule) 2 mg PO Q4H PRN PRN Reason: loose stools Magnesium Hydroxide (Milk Of Magnesia 30 Ml Oral.Susp) 30 ml PO DAILY PRN PRN Reason: Constipation Midodrine (Midodrine Hcl 5 Mg Tablet) 5 mg PO TID@0900,1300,1700 [facility] Last Admin: 07/21/25 12:24 Dose: 5 mg Mirtazapine (Mirtazapine 15 Mg Tablet) 15 mg PO BEDTIME [facility] Last Admin: 07/20/25 19:52 Dose: 15 mg Sertraline HCl (Sertraline Hcl 100 Mg Tablet) 100 mg PO DAILY [facility] Last Admin: 07/21/25 09:04 Dose: 100 mg Tramadol HCl (Tramadol Hcl 50 Mg Tablet) 25 mg PO Q4H PRN PRN Reason: moderate, hip pain Last Admin: 07/21/25 13:12 Dose: 25 mg Trazodone HCl (Trazodone Hcl 50 Mg Tablet) 50 mg PO BEDTIME PRN PRN Reason: Insomnia Allergies Allergies Allergy/AdvReac Type Severity Reaction Status Date / Time penicillin V Allergy Unknown Unknown Verified 06/24/25 12:34 Assessment & Plan Assessment & Plan (1) Bipolar disorder with depression: Status: Acute Code(s): F31.9 - Bipolar disorder, unspecified (2) Cognitive impairment: Status: Acute Code(s): R41.89 - Other symptoms and signs involving cognitive functions and awareness Assessment and Plan: suspect it may be unipolar, no clear hx of hypomania or keisha. She does hx of trauma. Plan Ms. Chan is a 69 year-old woman hx of Bipolar (although do wander if it is more unipolar depression, hx of trauma and dysphoria). She was brought to [facility] by long time friend Carl due to increase anxious mood, feeling overwhelmed in context of impending eviction. She was here back in 12/2024 with similar presentation including increase anxious mood, feeling overwhelmed due to impending eviction. She is again noted to have difficulty remembering information including the fact that she had drops in BP and was discharged on midodrine, she does not remember this but continues to report feeling dizzy when standing up. She denies SI/HI. No psychosis or delusional content. We discussed risks, benefits and alternative treatment options. We discussed trying sertraline for depression. May consider discontinuing trileptal and rexulti. Monitor ortho VS, may need to restart midodrine. Pt discussed with SW referral to [facility]. (1) Bipolar disorder with depression: Status: Acute Code(s): F31.9 - Bipolar disorder, unspecified (2) Cognitive impairment: Status: Acute Code(s): R41.89 - Other symptoms and signs involving cognitive functions and awareness Assessment and Plan: She completed MOCA on 12/17/2024 scored 14/30, difficulties with executive function and visuospatial (2/5), attention, language repetition (0/2)/fluency (0/1), recall (0/5). Her orientation is intact, as well as naming. Shows vascular pattern of cognitive impairment. ACL scored 5. PLAN 1. Admit to S1, CV, 15 minutes checks for safety 2. start sertraline 25mg po daily, plan to titrate. 3. dc trileptal unclear therapeutic use. may lower rexulti. 4. obtain collateral information 5. Aftercare planning. 06/27 increase sertraline to 75mg po daily. lower rexulti to 0.5mg po qhs. 06/28, 06/29: no change in plan today 06/30 continue tx. loose stools, added immodium. 07/01 continue tx. monitor loose stools as it can be related to sertraline. 07/02 continue tx. 07/03 continue tx. increase sertraline 100mg po daily. 07/04 continue tx. 07/05: continue current management and treatment plan. 07/06: continue current management and treatment plan. 07/07 reports improvement in mood. no si/hi. taking medications. somewhat forgetful at times. 07/08 continue tx. 07/09 continue tx. pending placement. 07/10 continue tx. 07/11 continue tx. 07/12: stable. continue current mgmt. 07/13: stable presentation. continue current mgmt. 07/14 continue tx. 07/15 continue tx. 07/16 continue tx. awaiting placement. 07/17 continue tx. 07/18 continue tx. 07/21 continue tx. Reason for continued inpatient stay Substantial Risk for: inability to function Time Spent With Patient Time: Total time managing care of this patient today ____ minutes.
[2025-07-21 16:42] VITALS: BP 115/69; PULSE 101
[2025-07-21 20:00] VITALS: BP 128/65; PULSE 73; RESP 16; TEMP 36.9; O2SAT 96
[2025-07-22 08:00] VITALS: BP 124/70; PULSE 97; RESP 16; TEMP 36.7; O2SAT 96
[2025-07-22 12:25] VITALS: BP 100/54; PULSE 75
[2025-07-22 16:34] VITALS: BP 102/64; PULSE 85
--- NOTE | 2025-07-22 19:54 | P.PNPSI_ITS ---
Subjective Subjective Date of Service: 07/22/25 Reason For Visit: SI Subjective Notes: Conditional Voluntary Interim History: Pt slept through the night. She reports mood is doing okay. She reports new pt was loud yesterday but she kept to herself. No SI/HI. taking medications as prescribed. She takes tramadol for hip pain with good effect. No psychosis or delusions. Review of Systems Review of Systems No SOB/N/V, no physical symptoms. Ambulating using walker. Yes all other systems are reviewed and are negative Constitutional: Reports no additional constitutional complaints Eyes: Reports no additional eye complaints Reports system reviewed and no additional complaints, except as documented Cardiovascular: Reports no additional cardiovascular complaints Respiratory: Reports no additional respiratory complaints Gastrointestinal: Reports change in stool character, Reports diarrhea and Reports loose stools Musculoskeletal: Reports abnormal gait (walker use) Skin/Breast: Reports system reviewed and no additional complaints, except as docu Reports abnormal gait (walker use) Psychiatric: Reports as per HPI Endocrine: Reports no additional endocrine complaints Hematologic/Lymphatic: Reports no additional hematologic/lymphatic complaints Allergic/Immunologic: Reports no additional allergic/immunologic complaints Mental Status Exam Mental Status Exam Narrative: Appearance: wearing hospital gown, thin, somewhat malnourished, in NAD Behavior: cooperative Psychomotor: no agitation or retardation noted, mild cogwheel on right arm. Speech: clear, normal rate/rhythm/volume, spontaneous TP: not tangential TC: overwhelmed with impending eviction/homelessness Mood: euthymic Affect: congruent SI:none HI: none VH/AH: no overt signs Delusions:none Insight/judgment: impaired x 2. memory/cog: alert, oriented x 4. MOCA back on 12/2024 scored 14/30, difficulties with executive function and visuospatial (2/5), attention, language repetition (0/2)/fluency (0/1), recall (0/5). Her orientation is intact, as well as naming. Showing vascular pattern of cognitive impairment. Diagnostics Vital Signs (24Hr): Vital Signs - 24 hr 07/21/25 20:00 07/22/25 08:00 07/22/25 12:25 Temperature 98.4 F 98.1 F Pulse Rate 73 97 75 Respiratory Rate 16 16 Blood Pressure 128/65 124/70 100/54 L Pulse Oximetry 96 96 Oxygen Delivery Method Room Air Room Air 07/22/25 16:34 Temperature Pulse Rate 85 Respiratory Rate Blood Pressure 102/64 Pulse Oximetry Oxygen Delivery Method BMI result Body Mass Index 19.3 Labs 06/24/25 13:21 06/25/25 08:04 Medications Medications Current Medications Acetaminophen (Acetaminophen 325 Mg Tablet) 650 mg PO Q6H PRN PRN Reason: Headache/Pain, Scale 1-10 Last Admin: 07/21/25 20:54 Dose: 650 mg Al Hydroxide/Mg Hydroxide (Magnesium Hydrox/Alum Hydrox 30 Ml Oral.Susp) 30 ml PO Q6H PRN PRN Reason: Heartburn/Nausea Albuterol Sulfate (Albuterol Sulfate 90 Mcg 8 Gm Inhaler) 1 puff INHALE QID PRN PRN Reason: wheezing/SOB Brexpiprazole (Brexpiprazole 1 Mg Tablet) 0.5 mg PO BEDTIME [facility] Last Admin: 07/21/25 20:54 Dose: 0.5 mg Levothyroxine Sodium (Levothyroxine Sodium 50 Mcg Tablet) 50 mcg PO DAILY@0600 [facility] Last Admin: 07/22/25 06:17 Dose: 50 mcg Lidocaine (Lidocaine 4 % Patch Adh..Patch) 1 patch TRANSDERMA DAILY PRN PRN Reason: Pain Last Admin: 07/01/25 20:58 Dose: 1 patch Loperamide HCl (Loperamide Hcl 2 Mg Capsule) 2 mg PO Q4H PRN PRN Reason: loose stools Magnesium Hydroxide (Milk Of Magnesia 30 Ml Oral.Susp) 30 ml PO DAILY PRN PRN Reason: Constipation Midodrine (Midodrine Hcl 5 Mg Tablet) 5 mg PO TID@0900,1300,1700 [facility] Last Admin: 07/22/25 16:35 Dose: 5 mg Mirtazapine (Mirtazapine 15 Mg Tablet) 15 mg PO BEDTIME [facility] Last Admin: 07/21/25 20:55 Dose: 15 mg Sertraline HCl (Sertraline Hcl 100 Mg Tablet) 100 mg PO DAILY [facility] Last Admin: 07/22/25 08:35 Dose: 100 mg Tramadol HCl (Tramadol Hcl 50 Mg Tablet) 25 mg PO Q4H PRN PRN Reason: moderate, hip pain Last Admin: 07/22/25 09:10 Dose: 25 mg Trazodone HCl (Trazodone Hcl 50 Mg Tablet) 50 mg PO BEDTIME PRN PRN Reason: Insomnia Allergies Allergies Allergy/AdvReac Type Severity Reaction Status Date / Time penicillin V Allergy Unknown Unknown Verified 06/24/25 12:34 Assessment & Plan Assessment & Plan (1) Bipolar disorder with depression: Status: Acute Code(s): F31.9 - Bipolar disorder, unspecified (2) Cognitive impairment: Status: Acute Code(s): R41.89 - Other symptoms and signs involving cognitive functions and awareness Assessment and Plan: suspect it may be unipolar, no clear hx of hypomania or keisha. She does hx of trauma. Plan Ms. Chan is a 69 year-old woman hx of Bipolar (although do wander if it is more unipolar depression, hx of trauma and dysphoria). She was brought to [facility] by long time friend Carl due to increase anxious mood, feeling overwhelmed in context of impending eviction. She was here back in 12/2024 with similar presentation including increase anxious mood, feeling overwhelmed due to impending eviction. She is again noted to have difficulty remembering information including the fact that she had drops in BP and was discharged on midodrine, she does not remember this but continues to report feeling dizzy when standing up. She denies SI/HI. No psychosis or delusional content. We discussed risks, benefits and alternative treatment options. We discussed trying sertraline for depression. May consider discontinuing trileptal and rexulti. Monitor ortho VS, may need to restart midodrine. Pt discussed with SW referral to [facility]. (1) Bipolar disorder with depression: Status: Acute Code(s): F31.9 - Bipolar disorder, unspecified (2) Cognitive impairment: Status: Acute Code(s): R41.89 - Other symptoms and signs involving cognitive functions and awareness Assessment and Plan: She completed MOCA on 12/17/2024 scored 14/30, difficulties with executive function and visuospatial (2/5), attention, language repetition (0/2)/fluency (0/1), recall (0/5). Her orientation is intact, as well as naming. Shows vascular pattern of cognitive impairment. ACL scored 5. PLAN 1. Admit to S1, CV, 15 minutes checks for safety 2. start sertraline 25mg po daily, plan to titrate. 3. dc trileptal unclear therapeutic use. may lower rexulti. 4. obtain collateral information 5. Aftercare planning. 06/27 increase sertraline to 75mg po daily. lower rexulti to 0.5mg po qhs. 06/28, 06/29: no change in plan today 06/30 continue tx. loose stools, added immodium. 07/01 continue tx. monitor loose stools as it can be related to sertraline. 07/02 continue tx. 07/03 continue tx. increase sertraline 100mg po daily. 07/04 continue tx. 07/05: continue current management and treatment plan. 07/06: continue current management and treatment plan. 07/07 reports improvement in mood. no si/hi. taking medications. somewhat forgetful at times. 07/08 continue tx. 07/09 continue tx. pending placement. 07/10 continue tx. 07/11 continue tx. 07/12: stable. continue current mgmt. 07/13: stable presentation. continue current mgmt. 07/14 continue tx. 07/15 continue tx. 07/16 continue tx. awaiting placement. 07/17 continue tx. 07/18 continue tx. 07/21 continue tx. 07/22 continue tx. Reason for continued inpatient stay Substantial Risk for: inability to function Time Spent With Patient Time: Total time managing care of this patient today ____ minutes.
[2025-07-22 20:00] VITALS: BP 115/58; PULSE 71; RESP 17; TEMP 36.4; O2SAT 96
[2025-07-23 08:00] VITALS: BP 99/52; PULSE 77; RESP 18; TEMP 36.2; O2SAT 97
[2025-07-23 12:30] VITALS: BP 103/56
[2025-07-23 16:26] VITALS: BP 110/58
--- NOTE | 2025-07-23 16:58 | P.PNPSI_ITS ---
Subjective Subjective Date of Service: 07/23/25 Reason For Visit: SI Subjective Notes: Conditional Voluntary Interim History: Pt slept through the night. She reports mood is doing okay. She reports new pt was loud yesterday but she kept to herself. No SI/HI. taking medications as prescribed. She takes tramadol for hip pain with good effect. No psychosis or delusions. Review of Systems Review of Systems No SOB/N/V, no physical symptoms. Ambulating using walker. Yes all other systems are reviewed and are negative Constitutional: Reports no additional constitutional complaints Eyes: Reports no additional eye complaints Reports system reviewed and no additional complaints, except as documented Cardiovascular: Reports no additional cardiovascular complaints Respiratory: Reports no additional respiratory complaints Gastrointestinal: Reports change in stool character, Reports diarrhea and Reports loose stools Musculoskeletal: Reports abnormal gait (walker use) Skin/Breast: Reports system reviewed and no additional complaints, except as docu Reports abnormal gait (walker use) Psychiatric: Reports as per HPI Endocrine: Reports no additional endocrine complaints Hematologic/Lymphatic: Reports no additional hematologic/lymphatic complaints Allergic/Immunologic: Reports no additional allergic/immunologic complaints Mental Status Exam Mental Status Exam Narrative: Appearance: wearing hospital gown, thin, somewhat malnourished, in NAD Behavior: cooperative Psychomotor: no agitation or retardation noted, mild cogwheel on right arm. Speech: clear, normal rate/rhythm/volume, spontaneous TP: not tangential TC: overwhelmed with impending eviction/homelessness Mood: euthymic Affect: congruent SI:none HI: none VH/AH: no overt signs Delusions:none Insight/judgment: impaired x 2. memory/cog: alert, oriented x 4. MOCA back on 12/2024 scored 14/30, difficulties with executive function and visuospatial (2/5), attention, language repetition (0/2)/fluency (0/1), recall (0/5). Her orientation is intact, as well as naming. Showing vascular pattern of cognitive impairment. Diagnostics Vital Signs (24Hr): Vital Signs - 24 hr 07/22/25 20:00 07/23/25 08:00 07/23/25 12:30 Temperature 97.5 F 97.2 F Pulse Rate 71 77 Respiratory Rate 17 18 Blood Pressure 115/58 L 99/52 L 103/56 L Pulse Oximetry 96 97 Oxygen Delivery Method Room Air Room Air 07/23/25 16:26 Temperature Pulse Rate Respiratory Rate Blood Pressure 110/58 L Pulse Oximetry Oxygen Delivery Method BMI result Body Mass Index 19.3 Labs 06/24/25 13:21 06/25/25 08:04 Medications Medications Current Medications Acetaminophen (Acetaminophen 325 Mg Tablet) 650 mg PO Q6H PRN PRN Reason: Headache/Pain, Scale 1-10 Last Admin: 07/21/25 20:54 Dose: 650 mg Al Hydroxide/Mg Hydroxide (Magnesium Hydrox/Alum Hydrox 30 Ml Oral.Susp) 30 ml PO Q6H PRN PRN Reason: Heartburn/Nausea Albuterol Sulfate (Albuterol Sulfate 90 Mcg 8 Gm Inhaler) 1 puff INHALE QID PRN PRN Reason: wheezing/SOB Brexpiprazole (Brexpiprazole 1 Mg Tablet) 0.5 mg PO BEDTIME [facility] Last Admin: 07/22/25 21:01 Dose: 0.5 mg Levothyroxine Sodium (Levothyroxine Sodium 50 Mcg Tablet) 50 mcg PO DAILY@0600 [facility] Last Admin: 07/23/25 06:26 Dose: 50 mcg Lidocaine (Lidocaine 4 % Patch Adh..Patch) 1 patch TRANSDERMA DAILY PRN PRN Reason: Pain Last Admin: 07/01/25 20:58 Dose: 1 patch Loperamide HCl (Loperamide Hcl 2 Mg Capsule) 2 mg PO Q4H PRN PRN Reason: loose stools Magnesium Hydroxide (Milk Of Magnesia 30 Ml Oral.Susp) 30 ml PO DAILY PRN PRN Reason: Constipation Midodrine (Midodrine Hcl 5 Mg Tablet) 5 mg PO TID@0900,1300,1700 [facility] Last Admin: 07/23/25 16:26 Dose: 5 mg Mirtazapine (Mirtazapine 15 Mg Tablet) 15 mg PO BEDTIME [facility] Last Admin: 07/22/25 21:03 Dose: 15 mg Sertraline HCl (Sertraline Hcl 100 Mg Tablet) 100 mg PO DAILY [facility] Last Admin: 07/23/25 08:41 Dose: 100 mg Tramadol HCl (Tramadol Hcl 50 Mg Tablet) 25 mg PO Q4H PRN PRN Reason: moderate, hip pain Last Admin: 07/22/25 21:02 Dose: 25 mg Trazodone HCl (Trazodone Hcl 50 Mg Tablet) 50 mg PO BEDTIME PRN PRN Reason: Insomnia Allergies Allergies Allergy/AdvReac Type Severity Reaction Status Date / Time penicillin V Allergy Unknown Unknown Verified 06/24/25 12:34 Assessment & Plan Assessment & Plan (1) Bipolar disorder with depression: Status: Acute Code(s): F31.9 - Bipolar disorder, unspecified (2) Cognitive impairment: Status: Acute Code(s): R41.89 - Other symptoms and signs involving cognitive functions and awareness Assessment and Plan: suspect it may be unipolar, no clear hx of hypomania or keisha. She does hx of trauma. Plan Ms. Chan is a 69 year-old woman hx of Bipolar (although do wander if it is more unipolar depression, hx of trauma and dysphoria). She was brought to [facility] by long time friend Carl due to increase anxious mood, feeling overwhelmed in context of impending eviction. She was here back in 12/2024 with similar presentation including increase anxious mood, feeling overwhelmed due to impending eviction. She is again noted to have difficulty remembering information including the fact that she had drops in BP and was discharged on midodrine, she does not remember this but continues to report feeling dizzy when standing up. She denies SI/HI. No psychosis or delusional content. We discussed risks, benefits and alternative treatment options. We discussed trying sertraline for depression. May consider discontinuing trileptal and rexulti. Monitor ortho VS, may need to restart midodrine. Pt discussed with SW referral to [facility]. (1) Bipolar disorder with depression: Status: Acute Code(s): F31.9 - Bipolar disorder, unspecified (2) Cognitive impairment: Status: Acute Code(s): R41.89 - Other symptoms and signs involving cognitive functions and awareness Assessment and Plan: She completed MOCA on 12/17/2024 scored 14/30, difficulties with executive function and visuospatial (2/5), attention, language repetition (0/2)/fluency (0/1), recall (0/5). Her orientation is intact, as well as naming. Shows vascular pattern of cognitive impairment. ACL scored 5. PLAN 1. Admit to S1, CV, 15 minutes checks for safety 2. start sertraline 25mg po daily, plan to titrate. 3. dc trileptal unclear therapeutic use. may lower rexulti. 4. obtain collateral information 5. Aftercare planning. 06/27 increase sertraline to 75mg po daily. lower rexulti to 0.5mg po qhs. 06/28, 06/29: no change in plan today 06/30 continue tx. loose stools, added immodium. 07/01 continue tx. monitor loose stools as it can be related to sertraline. 07/02 continue tx. 07/03 continue tx. increase sertraline 100mg po daily. 07/04 continue tx. 07/05: continue current management and treatment plan. 07/06: continue current management and treatment plan. 07/07 reports improvement in mood. no si/hi. taking medications. somewhat forgetful at times. 07/08 continue tx. 07/09 continue tx. pending placement. 07/10 continue tx. 07/11 continue tx. 07/12: stable. continue current mgmt. 07/13: stable presentation. continue current mgmt. 07/14 continue tx. 07/15 continue tx. 07/16 continue tx. awaiting placement. 07/17 continue tx. 07/18 continue tx. 07/21 continue tx. 07/22 continue tx. 07/23 continue tx. Reason for continued inpatient stay Substantial Risk for: inability to function Time Spent With Patient Time: Total time managing care of this patient today ____ minutes.
[2025-07-23 20:02] VITALS: BP 132/64; PULSE 71; RESP 17; TEMP 36.4; O2SAT 95
[2025-07-24 09:19] VITALS: BP 100/57; PULSE 76; RESP 14; TEMP 36.7; O2SAT 99
[2025-07-24 15:27] VITALS: BP 108/60
[2025-07-24 16:54] VITALS: BMI 19.5
--- NOTE | 2025-07-24 17:37 | HO.PSYCHPN ---
Subjective Subjective Date of Service: 07/24/25 Reason For Visit: SI Subjective Notes: Conditional Voluntary Interim History: Pt slept through the night. She reports mood is doing okay. She reports new pt was loud yesterday but she kept to herself. No SI/HI. taking medications as prescribed. She takes tramadol for hip pain with good effect. No psychosis or delusions. Review of Systems Review of Systems No SOB/N/V, no physical symptoms. Ambulating using walker. Yes all other systems are reviewed and are negative Constitutional: Reports no additional constitutional complaints Eyes: Reports no additional eye complaints Reports system reviewed and no additional complaints, except as documented Cardiovascular: Reports no additional cardiovascular complaints Respiratory: Reports no additional respiratory complaints Gastrointestinal: Reports change in stool character, Reports diarrhea and Reports loose stools Musculoskeletal: Reports abnormal gait (walker use) Skin/Breast: Reports system reviewed and no additional complaints, except as docu Reports abnormal gait (walker use) Psychiatric: Reports as per HPI Endocrine: Reports no additional endocrine complaints Hematologic/Lymphatic: Reports no additional hematologic/lymphatic complaints Allergic/Immunologic: Reports no additional allergic/immunologic complaints Mental Status Exam Mental Status Exam Narrative: Appearance: wearing hospital gown, thin, somewhat malnourished, in NAD Behavior: cooperative Psychomotor: no agitation or retardation noted, mild cogwheel on right arm. Speech: clear, normal rate/rhythm/volume, spontaneous TP: not tangential TC: overwhelmed with impending eviction/homelessness Mood: euthymic Affect: congruent SI:none HI: none VH/AH: no overt signs Delusions:none Insight/judgment: impaired x 2. memory/cog: alert, oriented x 4. MOCA back on 12/2024 scored 14/30, difficulties with executive function and visuospatial (2/5), attention, language repetition (0/2)/fluency (0/1), recall (0/5). Her orientation is intact, as well as naming. Showing vascular pattern of cognitive impairment. Diagnostics Vital Signs (24Hr): Vital Signs - 24 hr 07/23/25 20:02 07/24/25 09:19 07/24/25 15:27 Temperature 97.5 F 98.1 F Pulse Rate 71 76 Respiratory Rate 17 14 Blood Pressure 132/64 100/57 L 108/60 Pulse Oximetry 95 99 Oxygen Delivery Method Room Air Room Air BMI result Body Mass Index 19.5 Labs 06/24/25 13:21 06/25/25 08:04 Medications Medications Current Medications Acetaminophen (Acetaminophen 325 Mg Tablet) 650 mg PO Q6H PRN PRN Reason: Headache/Pain, Scale 1-10 Last Admin: 07/24/25 09:56 Dose: 650 mg Al Hydroxide/Mg Hydroxide (Magnesium Hydrox/Alum Hydrox 30 Ml Oral.Susp) 30 ml PO Q6H PRN PRN Reason: Heartburn/Nausea Albuterol Sulfate (Albuterol Sulfate 90 Mcg 8 Gm Inhaler) 1 puff INHALE QID PRN PRN Reason: wheezing/SOB Brexpiprazole (Brexpiprazole 1 Mg Tablet) 0.5 mg PO BEDTIME [facility] Last Admin: 07/23/25 20:04 Dose: 0.5 mg Levothyroxine Sodium (Levothyroxine Sodium 50 Mcg Tablet) 50 mcg PO DAILY@0600 [facility] Last Admin: 07/24/25 05:29 Dose: 50 mcg Lidocaine (Lidocaine 4 % Patch Adh..Patch) 1 patch TRANSDERMA DAILY PRN PRN Reason: Pain Last Admin: 07/01/25 20:58 Dose: 1 patch Loperamide HCl (Loperamide Hcl 2 Mg Capsule) 2 mg PO Q4H PRN PRN Reason: loose stools Magnesium Hydroxide (Milk Of Magnesia 30 Ml Oral.Susp) 30 ml PO DAILY PRN PRN Reason: Constipation Midodrine (Midodrine Hcl 5 Mg Tablet) 5 mg PO TID@0900,1300,1700 [facility] Last Admin: 07/24/25 15:35 Dose: 5 mg Mirtazapine (Mirtazapine 15 Mg Tablet) 15 mg PO BEDTIME [facility] Last Admin: 07/23/25 20:04 Dose: 15 mg Sertraline HCl (Sertraline Hcl 100 Mg Tablet) 100 mg PO DAILY [facility] Last Admin: 07/24/25 09:21 Dose: 100 mg Tramadol HCl (Tramadol Hcl 50 Mg Tablet) 25 mg PO Q4H PRN PRN Reason: moderate, hip pain Last Admin: 07/22/25 21:02 Dose: 25 mg Trazodone HCl (Trazodone Hcl 50 Mg Tablet) 50 mg PO BEDTIME PRN PRN Reason: Insomnia Allergies Allergies Allergy/AdvReac Type Severity Reaction Status Date / Time penicillin V Allergy Unknown Unknown Verified 06/24/25 12:34 Assessment & Plan Assessment & Plan (1) Bipolar disorder with depression: Status: Acute Code(s): F31.9 - Bipolar disorder, unspecified (2) Cognitive impairment: Status: Acute Code(s): R41.89 - Other symptoms and signs involving cognitive functions and awareness Assessment and Plan: suspect it may be unipolar, no clear hx of hypomania or keisha. She does hx of trauma. Plan Ms. Chan is a 69 year-old woman hx of Bipolar (although do wander if it is more unipolar depression, hx of trauma and dysphoria). She was brought to [facility] by long time friend Carl due to increase anxious mood, feeling overwhelmed in context of impending eviction. She was here back in 12/2024 with similar presentation including increase anxious mood, feeling overwhelmed due to impending eviction. She is again noted to have difficulty remembering information including the fact that she had drops in BP and was discharged on midodrine, she does not remember this but continues to report feeling dizzy when standing up. She denies SI/HI. No psychosis or delusional content. We discussed risks, benefits and alternative treatment options. We discussed trying sertraline for depression. May consider discontinuing trileptal and rexulti. Monitor ortho VS, may need to restart midodrine. Pt discussed with referral to [facility]. (1) Bipolar disorder with depression: Status: Acute Code(s): F31.9 - Bipolar disorder, unspecified (2) Cognitive impairment: Status: Acute Code(s): R41.89 - Other symptoms and signs involving cognitive functions and awareness Assessment and Plan: She completed MOCA on 12/17/2024 scored 14/30, difficulties with executive function and visuospatial (2/5), attention, language repetition (0/2)/fluency (0/1), recall (0/5). Her orientation is intact, as well as naming. Shows vascular pattern of cognitive impairment. ACL scored 5. PLAN 1. Admit to S1, CV, 15 minutes checks for safety 2. start sertraline 25mg po daily, plan to titrate. 3. dc trileptal unclear therapeutic use. may lower rexulti. 4. obtain collateral information 5. Aftercare planning. 06/27 increase sertraline to 75mg po daily. lower rexulti to 0.5mg po qhs. 06/28, 06/29: no change in plan today 06/30 continue tx. loose stools, added immodium. 07/01 continue tx. monitor loose stools as it can be related to sertraline. 07/02 continue tx. 07/03 continue tx. increase sertraline 100mg po daily. 07/04 continue tx. 07/05: continue current management and treatment plan. 07/06: continue current management and treatment plan. 07/07 reports improvement in mood. no si/hi. taking medications. somewhat forgetful at times. 07/08 continue tx. 07/09 continue tx. pending placement. 07/10 continue tx. 07/11 continue tx. 07/12: stable. continue current mgmt. 07/13: stable presentation. continue current mgmt. 07/14 continue tx. 07/15 continue tx. 07/16 continue tx. awaiting placement. 07/17 continue tx. 07/18 continue tx. 07/21 continue tx. 07/22 continue tx. 07/23 continue tx. 07/24 continue tx. Reason for continued inpatient stay Substantial Risk for: inability to function Time Spent With Patient Time: Total time managing care of this patient today ____ minutes.
[2025-07-24 19:02] VITALS: BP 113/63
[2025-07-24 21:04] VITALS: BP 131/63; PULSE 62; RESP 16; TEMP 36; O2SAT 97
[2025-07-25 08:00] VITALS: BP 114/61; PULSE 84; RESP 18; TEMP 36.7; O2SAT 96
[2025-07-25 08:50] VITALS: BP 114/61
--- NOTE | 2025-07-25 09:41 | P.PNPSI_ITS ---
Subjective Subjective Date of Service: 07/25/25 Reason For Visit: SI Interim History: Pt slept through the night. She reports mood is doing okay. She reports new pt was loud yesterday but she kept to herself. No SI/HI. taking medications as prescribed. She takes tramadol for hip pain with good effect. No psychosis or delusions. Review of Systems Review of Systems No SOB/N/V, no physical symptoms. Ambulating using walker. Yes all other systems are reviewed and are negative Constitutional: Reports no additional constitutional complaints Eyes: Reports no additional eye complaints Reports system reviewed and no additional complaints, except as documented Cardiovascular: Reports no additional cardiovascular complaints Respiratory: Reports no additional respiratory complaints Gastrointestinal: Reports change in stool character, Reports diarrhea and Reports loose stools Musculoskeletal: Reports abnormal gait (walker use) Skin/Breast: Reports system reviewed and no additional complaints, except as docu Reports abnormal gait (walker use) Psychiatric: Reports as per HPI Endocrine: Reports no additional endocrine complaints Hematologic/Lymphatic: Reports no additional hematologic/lymphatic complaints Allergic/Immunologic: Reports no additional allergic/immunologic complaints Mental Status Exam Mental Status Exam Narrative: Appearance: wearing hospital gown, thin, somewhat malnourished, in NAD Behavior: cooperative Psychomotor: no agitation or retardation noted, mild cogwheel on right arm. Speech: clear, normal rate/rhythm/volume, spontaneous TP: not tangential TC: overwhelmed with impending eviction/homelessness Mood: euthymic Affect: congruent SI:none HI: none VH/AH: no overt signs Delusions:none Insight/judgment: impaired x 2. memory/cog: alert, oriented x 4. MOCA back on 12/2024 scored 14/30, difficulties with executive function and visuospatial (2/5), attention, language repetition (0/2)/fluency (0/1), recall (0/5). Her orientation is intact, as well as naming. Showing vascular pattern of cognitive impairment. Diagnostics Vital Signs (24Hr): Vital Signs - 24 hr 07/24/25 15:27 07/24/25 19:02 07/24/25 21:04 Temperature 96.8 F Pulse Rate 62 Respiratory Rate 16 Blood Pressure 108/60 113/63 131/63 Pulse Oximetry 97 Oxygen Delivery Method Room Air 07/25/25 08:00 07/25/25 08:50 Temperature 98.1 F Pulse Rate 84 Respiratory Rate 18 Blood Pressure 114/61 114/61 Pulse Oximetry 96 Oxygen Delivery Method Room Air BMI result Body Mass Index 19.5 Labs 06/24/25 13:21 06/25/25 08:04 Medications Medications Current Medications Acetaminophen (Acetaminophen 325 Mg Tablet) 650 mg PO Q6H PRN PRN Reason: Headache/Pain, Scale 1-10 Last Admin: 07/24/25 09:56 Dose: 650 mg Al Hydroxide/Mg Hydroxide (Magnesium Hydrox/Alum Hydrox 30 Ml Oral.Susp) 30 ml PO Q6H PRN PRN Reason: Heartburn/Nausea Albuterol Sulfate (Albuterol Sulfate 90 Mcg 8 Gm Inhaler) 1 puff INHALE QID PRN PRN Reason: wheezing/SOB Brexpiprazole (Brexpiprazole 1 Mg Tablet) 0.5 mg PO BEDTIME [facility] Last Admin: 07/24/25 21:05 Dose: 0.5 mg Levothyroxine Sodium (Levothyroxine Sodium 50 Mcg Tablet) 50 mcg PO DAILY@0600 [facility] Last Admin: 07/25/25 05:05 Dose: 50 mcg Lidocaine (Lidocaine 4 % Patch Adh..Patch) 1 patch TRANSDERMA DAILY PRN PRN Reason: Pain Last Admin: 07/01/25 20:58 Dose: 1 patch Loperamide HCl (Loperamide Hcl 2 Mg Capsule) 2 mg PO Q4H PRN PRN Reason: loose stools Magnesium Hydroxide (Milk Of Magnesia 30 Ml Oral.Susp) 30 ml PO DAILY PRN PRN Reason: Constipation Midodrine (Midodrine Hcl 5 Mg Tablet) 5 mg PO TID@0900,1300,1700 [facility] Last Admin: 07/25/25 08:50 Dose: 5 mg Mirtazapine (Mirtazapine 15 Mg Tablet) 15 mg PO BEDTIME [facility] Last Admin: 07/24/25 21:05 Dose: 15 mg Sertraline HCl (Sertraline Hcl 100 Mg Tablet) 100 mg PO DAILY [facility] Last Admin: 07/25/25 08:50 Dose: 100 mg Tramadol HCl (Tramadol Hcl 50 Mg Tablet) 25 mg PO Q4H PRN PRN Reason: moderate, hip pain Last Admin: 07/22/25 21:02 Dose: 25 mg Trazodone HCl (Trazodone Hcl 50 Mg Tablet) 50 mg PO BEDTIME PRN PRN Reason: Insomnia Allergies Allergies Allergy/AdvReac Type Severity Reaction Status Date / Time penicillin V Allergy Unknown Unknown Verified 06/24/25 12:34 Assessment & Plan Assessment & Plan (1) Bipolar disorder with depression: Status: Acute Code(s): F31.9 - Bipolar disorder, unspecified (2) Cognitive impairment: Status: Acute Code(s): R41.89 - Other symptoms and signs involving cognitive functions and awareness Assessment and Plan: suspect it may be unipolar, no clear hx of hypomania or keisha. She does hx of trauma. Plan Ms. Chan is a 69 year-old woman hx of Bipolar (although do wander if it is more unipolar depression, hx of trauma and dysphoria). She was brought to [facility] by long time friend Carl due to increase anxious mood, feeling overwhelmed in context of impending eviction. She was here back in 12/2024 with similar presentation including increase anxious mood, feeling overwhelmed due to impending eviction. She is again noted to have difficulty remembering information including the fact that she had drops in BP and was discharged on midodrine, she does not remember this but continues to report feeling dizzy when standing up. She denies SI/HI. No psychosis or delusional content. We discussed risks, benefits and alternative treatment options. We discussed trying sertraline for depression. May consider discontinuing trileptal and rexulti. Monitor ortho VS, may need to restart midodrine. Pt discussed with SW referral to [facility]. (1) Bipolar disorder with depression: Status: Acute Code(s): F31.9 - Bipolar disorder, unspecified (2) Cognitive impairment: Status: Acute Code(s): R41.89 - Other symptoms and signs involving cognitive functions and awareness Assessment and Plan: She completed MOCA on 12/17/2024 scored 14/30, difficulties with executive function and visuospatial (2/5), attention, language repetition (0/2)/fluency (0/1), recall (0/5). Her orientation is intact, as well as naming. Shows vascular pattern of cognitive impairment. ACL scored 5. PLAN 1. Admit to S1, CV, 15 minutes checks for safety 2. start sertraline 25mg po daily, plan to titrate. 3. dc trileptal unclear therapeutic use. may lower rexulti. 4. obtain collateral information 5. Aftercare planning. 06/27 increase sertraline to 75mg po daily. lower rexulti to 0.5mg po qhs. 06/28, 06/29: no change in plan today 06/30 continue tx. loose stools, added immodium. 07/01 continue tx. monitor loose stools as it can be related to sertraline. 07/02 continue tx. 07/03 continue tx. increase sertraline 100mg po daily. 07/04 continue tx. 07/05: continue current management and treatment plan. 07/06: continue current management and treatment plan. 07/07 reports improvement in mood. no si/hi. taking medications. somewhat forgetful at times. 07/08 continue tx. 07/09 continue tx. pending placement. 07/10 continue tx. 07/11 continue tx. 07/12: stable. continue current mgmt. 07/13: stable presentation. continue current mgmt. 07/14 continue tx. 07/15 continue tx. 07/16 continue tx. awaiting placement. 07/17 continue tx. 07/18 continue tx. 07/21 continue tx. 07/22 continue tx. 07/23 continue tx. 07/24 continue tx. 07/25 continue tx. Reason for continued inpatient stay Substantial Risk for: inability to function Time Spent With Patient Time: Total time managing care of this patient today ____ minutes.
[2025-07-25 16:14] VITALS: BP 110/69
[2025-07-25 20:00] VITALS: BP 115/58; PULSE 68; RESP 16; TEMP 37.1; O2SAT 98
[2025-07-26 08:35] VITALS: BP 114/70; PULSE 85; RESP 16; TEMP 36.6; O2SAT 95
[2025-07-26 12:27] VITALS: BP 100/66; PULSE 77
--- NOTE | 2025-07-26 16:41 | HO.PSYCHPN ---
Subjective Subjective Date of Service: 07/26/25 Reason For Visit: SI Interim History: Met with patient; discussed with team; reviewed chart Patient sitting comfortably, socializing with peers . Says she is doing good and has no complaints or requests. Staff concurs that patient remained stable Mental Status Exam Mental Status Exam Narrative: Appearance: Appropriate casual attire, thin, in NAD Behavior: cooperative, calm Psychomotor: no agitation or retardation noted, history of mild cogwheel on right arm. Speech: clear, normal rate/rhythm/volume, spontaneous TP: Goal oriented TC: Dealing with impending eviction/homelessness Mood: Doing good Affect: congruent SI:none HI: none VH/AH: no overt signs Delusions:none Insight/judgment: impaired x 2. memory/cog: alert, oriented x 4. MOCA back on 12/2024 scored 14/30, difficulties with executive function and visuospatial (2/5), attention, language repetition (0/2)/fluency (0/1), recall (0/5). Her orientation is intact, as well as naming. Showing vascular pattern of cognitive impairment. Diagnostics Vital Signs (24Hr): Vital Signs - 24 hr 07/25/25 20:00 07/26/25 08:35 07/26/25 12:27 Temperature 98.7 F 97.9 F Pulse Rate 68 85 77 Respiratory Rate 16 16 Blood Pressure 115/58 L 114/70 100/66 Pulse Oximetry 98 95 Oxygen Delivery Method Room Air Room Air BMI result Body Mass Index 19.5 Labs 06/24/25 13:21 06/25/25 08:04 Medications Medications Current Medications Acetaminophen (Acetaminophen 325 Mg Tablet) 650 mg PO Q6H PRN PRN Reason: Headache/Pain, Scale 1-10 Last Admin: 07/24/25 09:56 Dose: 650 mg Al Hydroxide/Mg Hydroxide (Magnesium Hydrox/Alum Hydrox 30 Ml Oral.Susp) 30 ml PO Q6H PRN PRN Reason: Heartburn/Nausea Albuterol Sulfate (Albuterol Sulfate 90 Mcg 8 Gm Inhaler) 1 puff INHALE QID PRN PRN Reason: wheezing/SOB Brexpiprazole (Brexpiprazole 1 Mg Tablet) 0.5 mg PO BEDTIME [facility] Last Admin: 07/25/25 21:42 Dose: 0.5 mg Levothyroxine Sodium (Levothyroxine Sodium 50 Mcg Tablet) 50 mcg PO DAILY@0600 [facility] Last Admin: 07/26/25 06:27 Dose: 50 mcg Lidocaine (Lidocaine 4 % Patch Adh..Patch) 1 patch TRANSDERMA DAILY PRN PRN Reason: Pain Last Admin: 07/01/25 20:58 Dose: 1 patch Loperamide HCl (Loperamide Hcl 2 Mg Capsule) 2 mg PO Q4H PRN PRN Reason: loose stools Magnesium Hydroxide (Milk Of Magnesia 30 Ml Oral.Susp) 30 ml PO DAILY PRN PRN Reason: Constipation Midodrine (Midodrine Hcl 5 Mg Tablet) 5 mg PO TID@0900,1300,1700 [facility] Last Admin: 07/26/25 12:34 Dose: 5 mg Mirtazapine (Mirtazapine 15 Mg Tablet) 15 mg PO BEDTIME [facility] Last Admin: 07/25/25 21:43 Dose: 15 mg Sertraline HCl (Sertraline Hcl 100 Mg Tablet) 100 mg PO DAILY [facility] Last Admin: 07/26/25 09:28 Dose: 100 mg Trazodone HCl (Trazodone Hcl 50 Mg Tablet) 50 mg PO BEDTIME PRN PRN Reason: Insomnia Allergies Allergies Allergy/AdvReac Type Severity Reaction Status Date / Time penicillin V Allergy Unknown Unknown Verified 06/24/25 12:34 Assessment & Plan Assessment & Plan (1) Bipolar disorder with depression: Status: Acute Code(s): F31.9 - Bipolar disorder, unspecified (2) Cognitive impairment: Status: Acute Code(s): R41.89 - Other symptoms and signs involving cognitive functions and awareness Assessment and Plan: suspect it may be unipolar, no clear hx of hypomania or keisha. She does hx of trauma. Plan Ms. Chan is a 69 year-old woman hx of Bipolar (although do wander if it is more unipolar depression, hx of trauma and dysphoria). She was brought to [facility] by long time friend Carl due to increase anxious mood, feeling overwhelmed in context of impending eviction. She was here back in 12/2024 with similar presentation including increase anxious mood, feeling overwhelmed due to impending eviction. She is again noted to have difficulty remembering information including the fact that she had drops in BP and was discharged on midodrine, she does not remember this but continues to report feeling dizzy when standing up. She denies SI/HI. No psychosis or delusional content. We discussed risks, benefits and alternative treatment options. We discussed trying sertraline for depression. May consider discontinuing trileptal and rexulti. Monitor ortho VS, may need to restart midodrine. Pt discussed with SW referral to [facility]. (1) Bipolar disorder with depression: Status: Acute Code(s): F31.9 - Bipolar disorder, unspecified (2) Cognitive impairment: Status: Acute Code(s): R41.89 - Other symptoms and signs involving cognitive functions and awareness Assessment and Plan: She completed MOCA on 12/17/2024 scored 14/30, difficulties with executive function and visuospatial (2/5), attention, language repetition (0/2)/fluency (0/1), recall (0/5). Her orientation is intact, as well as naming. Shows vascular pattern of cognitive impairment. ACL scored 5. PLAN 1. Admit to S1, CV, 15 minutes checks for safety 2. start sertraline 25mg po daily, plan to titrate. 3. dc trileptal unclear therapeutic use. may lower rexulti. 4. obtain collateral information 5. Aftercare planning. 06/27 increase sertraline to 75mg po daily. lower rexulti to 0.5mg po qhs. 06/28, 06/29: no change in plan today 06/30 continue tx. loose stools, added immodium. 07/01 continue tx. monitor loose stools as it can be related to sertraline. 07/02 continue tx. 07/03 continue tx. increase sertraline 100mg po daily. 07/07 reports improvement in mood. no si/hi. taking medications. somewhat forgetful at times. 07/09 continue tx. pending placement. 07/11 continue tx. 07/12: stable. continue current mgmt. 07/13: stable presentation. continue current mgmt. 07/16 continue tx. awaiting placement. 07/25 continue tx. 07/26 continue treatment plan Patient educated on: diagnosis Informed Consent: understands Reason for continued inpatient stay Substantial Risk for: rapid decompensation Time Spent With Patient Time: Total time managing care of this patient today ____ minutes.
[2025-07-26 16:57] VITALS: BP 121/64; PULSE 77
[2025-07-26 20:00] VITALS: BP 125/58; PULSE 70; RESP 16; TEMP 36.7; O2SAT 98
[2025-07-27 07:55] VITALS: BP 91/61; PULSE 70; RESP 16; TEMP 36.4; O2SAT 98
[2025-07-27 13:40] VITALS: BP 96/60
[2025-07-27 16:26] VITALS: BP 102/60
[2025-07-27 19:38] VITALS: BP 116/64; PULSE 79; RESP 16; TEMP 36.6; O2SAT 96
--- NOTE | 2025-07-27 22:20 | P.PNPSI_ITS ---
Subjective Subjective Date of Service: 07/27/25 Reason For Visit: SI Interim History: Met with patient; discussed with team No change in presentation. Patient remains pleasant, calm and cooperative. On approach patient sitting at table , coloring with peer. Says she is good.. Relaxing Mental Status Exam Mental Status Exam Narrative: Appearance: Appropriate casual attire, thin, in NAD Behavior: cooperative, calm Psychomotor: no agitation or retardation noted, history of mild cogwheel on right arm. Speech: clear, normal rate/rhythm/volume, spontaneous TP: Goal oriented TC: Dealing with impending eviction/homelessness Mood: good Affect: congruent SI:none HI: none VH/AH: no overt signs Delusions:none Insight/judgment: impaired x 2. memory/cog: alert, oriented x 4. MOCA back on 12/2024 scored 14/30, difficulties with executive function and visuospatial (2/5), attention, language repetition (0/2)/fluency (0/1), recall (0/5). Her orientation is intact, as well as naming. Showing vascular pattern of cognitive impairment. Diagnostics Vital Signs (24Hr): Vital Signs - 24 hr 07/27/25 07:55 07/27/25 13:40 07/27/25 16:26 Temperature 97.6 F Pulse Rate 70 Respiratory Rate 16 Blood Pressure 91/61 96/60 102/60 Pulse Oximetry 98 Oxygen Delivery Method Room Air 07/27/25 19:38 Temperature 97.9 F Pulse Rate 79 Respiratory Rate 16 Blood Pressure 116/64 Pulse Oximetry 96 Oxygen Delivery Method Room Air BMI result Body Mass Index 19.5 Labs 06/24/25 13:21 06/25/25 08:04 Medications Medications Current Medications Acetaminophen (Acetaminophen 325 Mg Tablet) 650 mg PO Q6H PRN PRN Reason: Headache/Pain, Scale 1-10 Last Admin: 07/24/25 09:56 Dose: 650 mg Al Hydroxide/Mg Hydroxide (Magnesium Hydrox/Alum Hydrox 30 Ml Oral.Susp) 30 ml PO Q6H PRN PRN Reason: Heartburn/Nausea Albuterol Sulfate (Albuterol Sulfate 90 Mcg 8 Gm Inhaler) 1 puff INHALE QID PRN PRN Reason: wheezing/SOB Brexpiprazole (Brexpiprazole 1 Mg Tablet) 0.5 mg PO BEDTIME [facility] Last Admin: 07/27/25 19:40 Dose: 0.5 mg Levothyroxine Sodium (Levothyroxine Sodium 50 Mcg Tablet) 50 mcg PO DAILY@0600 [facility] Last Admin: 07/27/25 05:57 Dose: 50 mcg Lidocaine (Lidocaine 4 % Patch Adh..Patch) 1 patch TRANSDERMA DAILY PRN PRN Reason: Pain Last Admin: 07/01/25 20:58 Dose: 1 patch Loperamide HCl (Loperamide Hcl 2 Mg Capsule) 2 mg PO Q4H PRN PRN Reason: loose stools Magnesium Hydroxide (Milk Of Magnesia 30 Ml Oral.Susp) 30 ml PO DAILY PRN PRN Reason: Constipation Midodrine (Midodrine Hcl 5 Mg Tablet) 5 mg PO TID@0900,1300,1700 [facility] Last Admin: 07/27/25 16:26 Dose: 5 mg Mirtazapine (Mirtazapine 15 Mg Tablet) 15 mg PO BEDTIME [facility] Last Admin: 07/27/25 19:40 Dose: 15 mg Sertraline HCl (Sertraline Hcl 100 Mg Tablet) 100 mg PO DAILY [facility] Last Admin: 07/27/25 08:14 Dose: 100 mg Tramadol HCl (Tramadol Hcl 50 Mg Tablet) 25 mg PO Q4H PRN PRN Reason: mod to severe pain Trazodone HCl (Trazodone Hcl 50 Mg Tablet) 50 mg PO BEDTIME PRN PRN Reason: Insomnia Allergies Allergies Allergy/AdvReac Type Severity Reaction Status Date / Time penicillin V Allergy Unknown Unknown Verified 06/24/25 12:34 Assessment & Plan Assessment & Plan (1) Bipolar disorder with depression: Status: Acute Code(s): F31.9 - Bipolar disorder, unspecified (2) Cognitive impairment: Status: Acute Code(s): R41.89 - Other symptoms and signs involving cognitive functions and awareness Assessment and Plan: suspect it may be unipolar, no clear hx of hypomania or keisha. She does hx of trauma. Plan Ms. Chan is a 69 year-old woman hx of Bipolar (although do wander if it is more unipolar depression, hx of trauma and dysphoria). She was brought to [facility] by long time friend Carl due to increase anxious mood, feeling overwhelmed in context of impending eviction. She was here back in 12/2024 with similar presentation including increase anxious mood, feeling overwhelmed due to impending eviction. She is again noted to have difficulty remembering information including the fact that she had drops in BP and was discharged on midodrine, she does not remember this but continues to report feeling dizzy when standing up. She denies SI/HI. No psychosis or delusional content. We discussed risks, benefits and alternative treatment options. We discussed trying sertraline for depression. May consider discontinuing trileptal and rexulti. Monitor ortho VS, may need to restart midodrine. Pt discussed with SW referral to [facility]. (1) Bipolar disorder with depression: Status: Acute Code(s): F31.9 - Bipolar disorder, unspecified (2) Cognitive impairment: Status: Acute Code(s): R41.89 - Other symptoms and signs involving cognitive functions and awareness Assessment and Plan: She completed MOCA on 12/17/2024 scored 14/30, difficulties with executive function and visuospatial (2/5), attention, language repetition (0/2)/fluency (0/1), recall (0/5). Her orientation is intact, as well as naming. Shows vascular pattern of cognitive impairment. ACL scored 5. PLAN 1. Admit to S1, CV, 15 minutes checks for safety 2. start sertraline 25mg po daily, plan to titrate. 3. dc trileptal unclear therapeutic use. may lower rexulti. 4. obtain collateral information 5. Aftercare planning. 06/27 increase sertraline to 75mg po daily. lower rexulti to 0.5mg po qhs. 06/28, 06/29: no change in plan today 06/30 continue tx. loose stools, added immodium. 07/01 continue tx. monitor loose stools as it can be related to sertraline. 07/02 continue tx. 07/03 continue tx. increase sertraline 100mg po daily. 07/04 continue tx. 07/05: continue current management and treatment plan. 07/06: continue current management and treatment plan. 07/07 reports improvement in mood. no si/hi. taking medications. somewhat forgetful at times. 07/08 continue tx. 07/09 continue tx. pending placement. 07/10 continue tx. 07/11 continue tx. 07/12: stable. continue current mgmt. 07/13: stable presentation. continue current mgmt. 07/14 continue tx. 07/15 continue tx. 07/16 continue tx. awaiting placement. 07/17 continue tx. 07/18 continue tx. 07/21 continue tx. 07/22 continue tx. 07/23 continue tx. 07/24 continue tx. 07/25 continue tx. 07/26 continue treatment plan 07/27 continue current treatment plan Patient educated on: diagnosis Informed Consent: understands Reason for continued inpatient stay Substantial Risk for: rapid decompensation Time Spent With Patient Time: Total time managing care of this patient today ____ minutes.
[2025-07-28 09:26] VITALS: BP 111/55; PULSE 69; RESP 14; TEMP 36.8; O2SAT 100
[2025-07-28 12:00] VITALS: BP 109/69
--- NOTE | 2025-07-28 14:13 | HO.PSYCHPN ---
Subjective Subjective Date of Service: 07/28/25 Reason For Visit: SI Interim History: Met with patient; discussed with team Patient reports she is good and has no complaints or request. Sitting comfortably watching television. Staff concurs Mental Status Exam Mental Status Exam Narrative: Appearance: Appropriate casual attire, thin, in NAD Behavior: cooperative, calm Psychomotor: no agitation or retardation noted, history of mild cogwheel on right arm. Speech: clear, normal rate/rhythm/volume, spontaneous TP: Goal oriented TC: Dealing with impending eviction/homelessness Mood: good Affect: congruent SI:none HI: none VH/AH: no overt signs Delusions:none Insight/judgment: impaired x 2. memory/cog: alert, oriented x 4. MOCA back on 12/2024 scored 14/30, difficulties with executive function and visuospatial (2/5), attention, language repetition (0/2)/fluency (0/1), recall (0/5). Her orientation is intact, as well as naming. Showing vascular pattern of cognitive impairment. Diagnostics Vital Signs (24Hr): Vital Signs - 24 hr 07/27/25 16:26 07/27/25 19:38 07/28/25 09:26 Temperature 97.9 F 98.2 F Pulse Rate 79 69 Respiratory Rate 16 14 Blood Pressure 102/60 116/64 111/55 L Pulse Oximetry 96 100 Oxygen Delivery Method Room Air Room Air 07/28/25 12:00 Temperature Pulse Rate Respiratory Rate Blood Pressure 109/69 Pulse Oximetry Oxygen Delivery Method BMI result Body Mass Index 19.5 Labs 06/24/25 13:21 06/25/25 08:04 Medications Medications Current Medications Acetaminophen (Acetaminophen 325 Mg Tablet) 650 mg PO Q6H PRN PRN Reason: Headache/Pain, Scale 1-10 Last Admin: 07/24/25 09:56 Dose: 650 mg Al Hydroxide/Mg Hydroxide (Magnesium Hydrox/Alum Hydrox 30 Ml Oral.Susp) 30 ml PO Q6H PRN PRN Reason: Heartburn/Nausea Albuterol Sulfate (Albuterol Sulfate 90 Mcg 8 Gm Inhaler) 1 puff INHALE QID PRN PRN Reason: wheezing/SOB Brexpiprazole (Brexpiprazole 1 Mg Tablet) 0.5 mg PO BEDTIME [facility] Last Admin: 07/27/25 19:40 Dose: 0.5 mg Levothyroxine Sodium (Levothyroxine Sodium 50 Mcg Tablet) 50 mcg PO DAILY@0600 [facility] Last Admin: 07/28/25 05:31 Dose: 50 mcg Lidocaine (Lidocaine 4 % Patch Adh..Patch) 1 patch TRANSDERMA DAILY PRN PRN Reason: Pain Last Admin: 07/01/25 20:58 Dose: 1 patch Loperamide HCl (Loperamide Hcl 2 Mg Capsule) 2 mg PO Q4H PRN PRN Reason: loose stools Magnesium Hydroxide (Milk Of Magnesia 30 Ml Oral.Susp) 30 ml PO DAILY PRN PRN Reason: Constipation Midodrine (Midodrine Hcl 5 Mg Tablet) 5 mg PO TID@0900,1300,1700 [facility] Last Admin: 07/28/25 12:03 Dose: 5 mg Mirtazapine (Mirtazapine 15 Mg Tablet) 15 mg PO BEDTIME [facility] Last Admin: 07/27/25 19:40 Dose: 15 mg Sertraline HCl (Sertraline Hcl 100 Mg Tablet) 100 mg PO DAILY [facility] Last Admin: 07/28/25 09:27 Dose: 100 mg Tramadol HCl (Tramadol Hcl 50 Mg Tablet) 25 mg PO Q4H PRN PRN Reason: mod to severe pain Trazodone HCl (Trazodone Hcl 50 Mg Tablet) 50 mg PO BEDTIME PRN PRN Reason: Insomnia Allergies Allergies Allergy/AdvReac Type Severity Reaction Status Date / Time penicillin V Allergy Unknown Unknown Verified 06/24/25 12:34 Assessment & Plan Assessment & Plan (1) Bipolar disorder with depression: Status: Acute Code(s): F31.9 - Bipolar disorder, unspecified (2) Cognitive impairment: Status: Acute Code(s): R41.89 - Other symptoms and signs involving cognitive functions and awareness Assessment and Plan: suspect it may be unipolar, no clear hx of hypomania or keisha. She does hx of trauma. Plan Ms. Chan is a 69 year-old woman hx of Bipolar (although do wander if it is more unipolar depression, hx of trauma and dysphoria). She was brought to [facility] by long time friend Carl due to increase anxious mood, feeling overwhelmed in context of impending eviction. She was here back in 12/2024 with similar presentation including increase anxious mood, feeling overwhelmed due to impending eviction. She is again noted to have difficulty remembering information including the fact that she had drops in BP and was discharged on midodrine, she does not remember this but continues to report feeling dizzy when standing up. She denies SI/HI. No psychosis or delusional content. We discussed risks, benefits and alternative treatment options. We discussed trying sertraline for depression. May consider discontinuing trileptal and rexulti. Monitor ortho VS, may need to restart midodrine. Pt discussed with SW referral to [facility]. (1) Bipolar disorder with depression: Status: Acute Code(s): F31.9 - Bipolar disorder, unspecified (2) Cognitive impairment: Status: Acute Code(s): R41.89 - Other symptoms and signs involving cognitive functions and awareness Assessment and Plan: She completed MOCA on 12/17/2024 scored 14/30, difficulties with executive function and visuospatial (2/5), attention, language repetition (0/2)/fluency (0/1), recall (0/5). Her orientation is intact, as well as naming. Shows vascular pattern of cognitive impairment. ACL scored 5. PLAN 1. Admit to S1, CV, 15 minutes checks for safety 2. start sertraline 25mg po daily, plan to titrate. 3. dc trileptal unclear therapeutic use. may lower rexulti. 4. obtain collateral information 5. Aftercare planning. 06/27 increase sertraline to 75mg po daily. lower rexulti to 0.5mg po qhs. 06/28, 06/29: no change in plan today 06/30 continue tx. loose stools, added immodium. 07/01 continue tx. monitor loose stools as it can be related to sertraline. 07/02 continue tx. 07/03 continue tx. increase sertraline 100mg po daily. 07/04 continue tx. 07/05: continue current management and treatment plan. 07/06: continue current management and treatment plan. 07/07 reports improvement in mood. no si/hi. taking medications. somewhat forgetful at times. 07/08 continue tx. 07/09 continue tx. pending placement. 07/10 continue tx. 07/11 continue tx. 07/12: stable. continue current mgmt. 07/13: stable presentation. continue current mgmt. 07/14 continue tx. 07/15 continue tx. 07/16 continue tx. awaiting placement. 07/17 continue tx. 07/18 continue tx. 07/21 continue tx. 07/22 continue tx. 07/23 continue tx. 07/24 continue tx. 07/25 continue tx. 07/26 continue treatment plan 07/27 continue current treatment plan 07/28 same presentation; continue treatment plan Reason for continued inpatient stay Substantial Risk for: inability to function Time Spent With Patient Time: Total time managing care of this patient today ____ minutes.
[2025-07-28 17:35] VITALS: BP 119/68
[2025-07-28 20:00] VITALS: BP 151/69; PULSE 74; RESP 18; TEMP 36.6; O2SAT 97
[2025-07-29 09:15] VITALS: BP 108/64; PULSE 96; RESP 16; O2SAT 96
[2025-07-29 14:15] VITALS: BP 106/61
[2025-07-29 17:26] VITALS: BP 121/63
[2025-07-29 20:02] VITALS: BP 120/60; PULSE 74; RESP 16; TEMP 36.6; O2SAT 96
[2025-07-30 08:00] VITALS: BP 100/60; PULSE 85; RESP 18; TEMP 36.2; O2SAT 96
[2025-07-30 12:36] VITALS: BP 100/62
[2025-07-30 16:50] VITALS: BP 130/62
--- NOTE | 2025-07-30 20:14 | P.PNPSI_ITS ---
Subjective Subjective Date of Service: 07/30/25 Reason For Visit: SI Subjective Notes: Conditional Voluntary Healthcare Proxy: No Guardianship: No Medical Problems Affecting Mental Status: No Interim History: Medical record and nursing notes reviewed; case discussed during rounds with team/nursing staff, and met with patient for supportive therapy/psychoeducation, as well as medication management. Patient slept for 7 hours, no issues with appetite, ambulate using walker. Report pain on right leg and hip. Helped patient wearing ENRRIQUE socking after assessment. Visible, attended groups, social with peers and staff appropriately. No behavior issues. SW continue working on referral. Patient confirmed that she is not evicted. Per SW, eviction is in the process. Medication Compliance: Yes Side effects from medications: No Attending Groups: Yes Review of Systems Acute medical concerns: No Medical Review of Systems: unchanged Review of Systems Review of Systems No SOB/N/V, no physical symptoms. Ambulating using walker. Yes all other systems are reviewed and are negative Mental Status Exam Mental Status Exam Narrative: Appearance: Appropriate casual attire, thin, in NAD Behavior: cooperative, calm Psychomotor: no agitation or retardation noted, history of mild cogwheel on right arm. Speech: clear, normal rate/rhythm/volume, spontaneous TP: Goal oriented TC: Dealing with impending eviction/homelessness Mood: good Affect: congruent SI:none HI: none VH/AH: no overt signs Delusions:none Insight/judgment: impaired x 2. memory/cog: alert, oriented x 4. MOCA back on 12/2024 scored 14/30, difficulties with executive function and visuospatial (2/5), attention, language repetition (0/2)/fluency (0/1), recall (0/5). Her orientation is intact, as well as naming. Showing vascular pattern of cognitive impairment. Diagnostics Vital Signs (24Hr): Vital Signs - 24 hr 07/30/25 08:00 07/30/25 12:36 07/30/25 16:50 Temperature 97.2 F Pulse Rate 85 Respiratory Rate 18 Blood Pressure 100/60 100/62 130/62 Pulse Oximetry 96 Oxygen Delivery Method Room Air BMI result Body Mass Index 19.5 Labs 06/24/25 13:21 06/25/25 08:04 Medications Medications Current Medications Acetaminophen (Acetaminophen 325 Mg Tablet) 650 mg PO Q6H PRN PRN Reason: Headache/Pain, Scale 1-10 Last Admin: 07/24/25 09:56 Dose: 650 mg Al Hydroxide/Mg Hydroxide (Magnesium Hydrox/Alum Hydrox 30 Ml Oral.Susp) 30 ml PO Q6H PRN PRN Reason: Heartburn/Nausea Albuterol Sulfate (Albuterol Sulfate 90 Mcg 8 Gm Inhaler) 1 puff INHALE QID PRN PRN Reason: wheezing/SOB Brexpiprazole (Brexpiprazole 1 Mg Tablet) 0.5 mg PO BEDTIME [facility] Last Admin: 07/29/25 20:03 Dose: 0.5 mg Levothyroxine Sodium (Levothyroxine Sodium 50 Mcg Tablet) 50 mcg PO DAILY@0600 [facility] Last Admin: 07/30/25 05:07 Dose: 50 mcg Lidocaine (Lidocaine 4 % Patch Adh..Patch) 1 patch TRANSDERMA DAILY PRN PRN Reason: Pain Last Admin: 07/01/25 20:58 Dose: 1 patch Loperamide HCl (Loperamide Hcl 2 Mg Capsule) 2 mg PO Q4H PRN PRN Reason: loose stools Magnesium Hydroxide (Milk Of Magnesia 30 Ml Oral.Susp) 30 ml PO DAILY PRN PRN Reason: Constipation Midodrine (Midodrine Hcl 5 Mg Tablet) 5 mg PO TID@0900,1300,1700 [facility] Last Admin: 07/30/25 16:50 Dose: 5 mg Mirtazapine (Mirtazapine 15 Mg Tablet) 15 mg PO BEDTIME [facility] Last Admin: 07/29/25 20:03 Dose: 15 mg Sertraline HCl (Sertraline Hcl 100 Mg Tablet) 100 mg PO DAILY [facility] Last Admin: 07/30/25 08:19 Dose: 100 mg Tramadol HCl (Tramadol Hcl 50 Mg Tablet) 25 mg PO Q4H PRN PRN Reason: mod to severe pain Trazodone HCl (Trazodone Hcl 50 Mg Tablet) 50 mg PO BEDTIME PRN PRN Reason: Insomnia Allergies Allergies Allergy/AdvReac Type Severity Reaction Status Date / Time penicillin V Allergy Unknown Unknown Verified 06/24/25 12:34 Assessment & Plan Assessment & Plan (1) Bipolar disorder with depression: Status: Acute Code(s): F31.9 - Bipolar disorder, unspecified (2) Cognitive impairment: Status: Acute Code(s): R41.89 - Other symptoms and signs involving cognitive functions and awareness Assessment and Plan: suspect it may be unipolar, no clear hx of hypomania or keisha. She does hx of trauma. Plan Ms. Chan is a 69 year-old woman hx of Bipolar (although do wander if it is more unipolar depression, hx of trauma and dysphoria). She was brought to [facility] by long time friend Carl due to increase anxious mood, feeling overwhelmed in context of impending eviction. She was here back in 12/2024 with similar presentation including increase anxious mood, feeling overwhelmed due to impending eviction. She is again noted to have difficulty remembering information including the fact that she had drops in BP and was discharged on midodrine, she does not remember this but continues to report feeling dizzy when standing up. She denies SI/HI. No psychosis or delusional content. We discussed risks, benefits and alternative treatment options. We discussed trying sertraline for depression. May consider discontinuing trileptal and rexulti. Monitor ortho VS, may need to restart midodrine. Pt discussed with SW referral to [facility]. (1) Bipolar disorder with depression: Status: Acute Code(s): F31.9 - Bipolar disorder, unspecified (2) Cognitive impairment: Status: Acute Code(s): R41.89 - Other symptoms and signs involving cognitive functions and awareness Assessment and Plan: She completed MOCA on 12/17/2024 scored 14/30, difficulties with executive function and visuospatial (2/5), attention, language repetition (0/2)/fluency (0/1), recall (0/5). Her orientation is intact, as well as naming. Shows vascular pattern of cognitive impairment. ACL scored 5. PLAN 1. Admit to S1, CV, 15 minutes checks for safety 2. start sertraline 25mg po daily, plan to titrate. 3. dc trileptal unclear therapeutic use. may lower rexulti. 4. obtain collateral information 5. Aftercare planning. 06/27 increase sertraline to 75mg po daily. lower rexulti to 0.5mg po qhs. 06/28, 06/29: no change in plan today 06/30 continue tx. loose stools, added immodium. 07/01 continue tx. monitor loose stools as it can be related to sertraline. 07/02 continue tx. 07/03 continue tx. increase sertraline 100mg po daily. 07/04 continue tx. 07/05: continue current management and treatment plan. 07/06: continue current management and treatment plan. 07/07 reports improvement in mood. no si/hi. taking medications. somewhat forgetful at times. 07/08 continue tx. 07/09 continue tx. pending placement. 07/10 continue tx. 07/11 continue tx. 07/12: stable. continue current mgmt. 07/13: stable presentation. continue current mgmt. 07/14 continue tx. 07/15 continue tx. 07/16 continue tx. awaiting placement. 07/17 continue tx. 07/18 continue tx. 07/21 continue tx. 07/22 continue tx. 07/23 continue tx. 07/24 continue tx. 07/25 continue tx. 07/26 continue treatment plan 07/27 continue current treatment plan 07/28 same presentation; continue treatment plan 07/30/25: Patient slept for 7 hours, no issues with appetite, ambulate using walker. Report pain on right leg and hip. Helped patient wearing ENRRIQUE socking after assessment. Visible, attended groups, social with peers and staff appropriately. No behavior issues. SW continue working on referral. Patient confirmed that she is not evicted. Per SW, eviction is in the process. Patient educated on: diagnosis, medication risk/benefits and therapeutic strategies Informed Consent: understands Reason for continued inpatient stay Substantial Risk for: med/psych decompensation Time Spent With Patient Time: Total time managing care of this patient today ____ minutes.
--- NOTE | 2025-07-30 20:20 | P.PNPSI_ITS ---
Subjective Subjective Date of Service: 07/29/25 Reason For Visit: SI Subjective Notes: Conditional Voluntary Medical Problems Affecting Mental Status: No Interim History: Medical record and nursing notes reviewed; case discussed during rounds with team/nursing staff, and met with patient for supportive therapy/psychoeducation, as well as medication management. Late entry for encounter on 07/29/25: Patient observed visible in common areas, attended groups, no safety concersn. No behavior issues. Sleep and appetite are good. VSs stable, compliant with meds, no side effects. Continue with current tx plan. Medication Compliance: Yes Side effects from medications: No Attending Groups: Yes Review of Systems Acute medical concerns: No Medical Review of Systems: unchanged Review of Systems Review of Systems No SOB/N/V, no physical symptoms. Ambulating using walker. Yes all other systems are reviewed and are negative Mental Status Exam Mental Status Exam Narrative: Appearance: Appropriate casual attire, thin, in NAD Behavior: cooperative, calm Psychomotor: no agitation or retardation noted, history of mild cogwheel on right arm. Speech: clear, normal rate/rhythm/volume, spontaneous TP: Goal oriented TC: Dealing with impending eviction/homelessness Mood: good Affect: congruent SI:none HI: none VH/AH: no overt signs Delusions:none Insight/judgment: impaired x 2. memory/cog: alert, oriented x 4. MOCA back on 12/2024 scored 14/30, difficulties with executive function and visuospatial (2/5), attention, language repetition (0/2)/fluency (0/1), recall (0/5). Her orientation is intact, as well as naming. Showing vascular pattern of cognitive impairment. Diagnostics Vital Signs (24Hr): Vital Signs - 24 hr 07/30/25 08:00 07/30/25 12:36 07/30/25 16:50 Temperature 97.2 F Pulse Rate 85 Respiratory Rate 18 Blood Pressure 100/60 100/62 130/62 Pulse Oximetry 96 Oxygen Delivery Method Room Air BMI result Body Mass Index 19.5 Labs 06/24/25 13:21 06/25/25 08:04 Medications Medications Current Medications Acetaminophen (Acetaminophen 325 Mg Tablet) 650 mg PO Q6H PRN PRN Reason: Headache/Pain, Scale 1-10 Last Admin: 07/24/25 09:56 Dose: 650 mg Al Hydroxide/Mg Hydroxide (Magnesium Hydrox/Alum Hydrox 30 Ml Oral.Susp) 30 ml PO Q6H PRN PRN Reason: Heartburn/Nausea Albuterol Sulfate (Albuterol Sulfate 90 Mcg 8 Gm Inhaler) 1 puff INHALE QID PRN PRN Reason: wheezing/SOB Brexpiprazole (Brexpiprazole 1 Mg Tablet) 0.5 mg PO BEDTIME [facility] Last Admin: 07/30/25 20:15 Dose: 0.5 mg Levothyroxine Sodium (Levothyroxine Sodium 50 Mcg Tablet) 50 mcg PO DAILY@0600 [facility] Last Admin: 07/30/25 05:07 Dose: 50 mcg Lidocaine (Lidocaine 4 % Patch Adh..Patch) 1 patch TRANSDERMA DAILY PRN PRN Reason: Pain Last Admin: 07/01/25 20:58 Dose: 1 patch Loperamide HCl (Loperamide Hcl 2 Mg Capsule) 2 mg PO Q4H PRN PRN Reason: loose stools Magnesium Hydroxide (Milk Of Magnesia 30 Ml Oral.Susp) 30 ml PO DAILY PRN PRN Reason: Constipation Midodrine (Midodrine Hcl 5 Mg Tablet) 5 mg PO TID@0900,1300,1700 [facility] Last Admin: 07/30/25 16:50 Dose: 5 mg Mirtazapine (Mirtazapine 15 Mg Tablet) 15 mg PO BEDTIME [facility] Last Admin: 07/30/25 20:16 Dose: 15 mg Sertraline HCl (Sertraline Hcl 100 Mg Tablet) 100 mg PO DAILY [facility] Last Admin: 07/30/25 08:19 Dose: 100 mg Tramadol HCl (Tramadol Hcl 50 Mg Tablet) 25 mg PO Q4H PRN PRN Reason: mod to severe pain Trazodone HCl (Trazodone Hcl 50 Mg Tablet) 50 mg PO BEDTIME PRN PRN Reason: Insomnia Allergies Allergies Allergy/AdvReac Type Severity Reaction Status Date / Time penicillin V Allergy Unknown Unknown Verified 06/24/25 12:34 Assessment & Plan Assessment & Plan (1) Bipolar disorder with depression: Status: Acute Code(s): F31.9 - Bipolar disorder, unspecified (2) Cognitive impairment: Status: Acute Code(s): R41.89 - Other symptoms and signs involving cognitive functions and awareness Assessment and Plan: suspect it may be unipolar, no clear hx of hypomania or keisha. She does hx of trauma. Plan Ms. Chan is a 69 year-old woman hx of Bipolar (although do wander if it is more unipolar depression, hx of trauma and dysphoria). She was brought to [facility] [place] long time friend Carl due to increase anxious mood, feeling overwhelmed in context of impending eviction. She was here back in 12/2024 with similar presentation including increase anxious mood, feeling overwhelmed due to impending eviction. She is again noted to have difficulty remembering information including the fact that she had drops in BP and was discharged on midodrine, she does not remember this but continues to report feeling dizzy when standing up. She denies SI/HI. No psychosis or delusional content. We discussed risks, benefits and alternative treatment options. We discussed trying sertraline for depression. May consider discontinuing trileptal and rexulti. Monitor ortho VS, may need to restart midodrine. Pt discussed with SW referral to [facility]. (1) Bipolar disorder with depression: Status: Acute Code(s): F31.9 - Bipolar disorder, unspecified (2) Cognitive impairment: Status: Acute Code(s): R41.89 - Other symptoms and signs involving cognitive functions and awareness Assessment and Plan: She completed MOCA on 12/17/2024 scored 14/30, difficulties with executive function and visuospatial (2/5), attention, language repetition (0/2)/fluency (0/1), recall (0/5). Her orientation is intact, as well as naming. Shows vascular pattern of cognitive impairment. ACL scored 5. PLAN 1. Admit to S1, CV, 15 minutes checks for safety 2. start sertraline 25mg po daily, plan to titrate. 3. dc trileptal unclear therapeutic use. may lower rexulti. 4. obtain collateral information 5. Aftercare planning. 06/27 increase sertraline to 75mg po daily. lower rexulti to 0.5mg po qhs. 06/28, 06/29: no change in plan today 06/30 continue tx. loose stools, added immodium. 07/01 continue tx. monitor loose stools as it can be related to sertraline. 07/02 continue tx. 07/03 continue tx. increase sertraline 100mg po daily. 07/04 continue tx. 07/05: continue current management and treatment plan. 07/06: continue current management and treatment plan. 07/07 reports improvement in mood. no si/hi. taking medications. somewhat forgetful at times. 07/08 continue tx. 07/09 continue tx. pending placement. 07/10 continue tx. 07/11 continue tx. 07/12: stable. continue current mgmt. 07/13: stable presentation. continue current mgmt. 07/14 continue tx. 07/15 continue tx. 07/16 continue tx. awaiting placement. 07/17 continue tx. 07/18 continue tx. 07/21 continue tx. 07/22 continue tx. 07/23 continue tx. 07/24 continue tx. 07/25 continue tx. 07/26 continue treatment plan 07/27 continue current treatment plan 07/28 same presentation; continue treatment plan 07/29/25: Patient observed visible in common areas, attended groups, no safety concersn. No behavior issues. Sleep and appetite are good. VSs stable, compliant with meds, no side effects. Continue with current tx plan. Patient educated on: medication risk/benefits and therapeutic strategies Informed Consent: understands Reason for continued inpatient stay Substantial Risk for: med/psych decompensation Time Spent With Patient Time: Total time managing care of this patient today ____ minutes.
[2025-07-30 20:29] VITALS: BP 113/54; PULSE 77; RESP 16; TEMP 36.6; O2SAT 97
--- NOTE | 2025-07-31 08:23 | P.PNPSI_ITS ---
Subjective Subjective Date of Service: 07/31/25 Reason For Visit: SI Subjective Notes: Conditional Voluntary Healthcare Proxy: No Guardianship: No Medical Problems Affecting Mental Status: No Interim History: Medical record and nursing notes reviewed; case discussed during rounds with team/nursing staff, and met with patient for supportive therapy/psychoeducation, as well as medication management. Meet with patient in bed, report she feels upset not toward anyone but regarding the news got from that patient was not accepted to any programs/placement that we referred patient out. Report she got the news from yesterday and it was very stressful day , report that she has no money, and get no help from family, except from her boyfriend who lives in the same building. Encourage patient to be out and attend unit activities to distract her self. Observed patient is out attend groups, had a visit with boyfriend. Over heard that patient was crying and tearful during visit. Per nursing, patient slept for 7 hours, got x1v loose stool. Continue to provide emotional support. Medication Compliance: Yes Side effects from medications: No Attending Groups: Yes Review of Systems Acute medical concerns: No Medical Review of Systems: unchanged Review of Systems Review of Systems No SOB/N/V, no physical symptoms. Ambulating using walker. Yes all other systems are reviewed and are negative Mental Status Exam Mental Status Exam Narrative: Appearance: Appropriate casual attire, thin, in NAD Behavior: cooperative, anxious Psychomotor: no agitation or retardation noted, history of mild cogwheel on right arm. Speech: clear, normal rate/rhythm/volume, spontaneous TP: Goal oriented, anxious/worrying regarding placement which she has been declined from some facilities. TC: Dealing with impending eviction/homelessness Mood: tired and upset Affect: congruent SI:none HI: none VH/AH: no overt signs Delusions:none Insight/judgment: impaired x 2. memory/cog: alert, oriented x 4. MOCA back on 12/2024 scored 14/30, difficulties with executive function and visuospatial (2/5), attention, language repetition (0/2)/fluency (0/1), recall (0/5). Her orientation is intact, as well as naming. Showing vascular pattern of cognitive impairment. Diagnostics Vital Signs (24Hr): Vital Signs - 24 hr 07/30/25 12:36 07/30/25 16:50 07/30/25 20:29 Temperature 98 F Pulse Rate 77 Respiratory Rate 16 Blood Pressure 100/62 130/62 113/54 L Pulse Oximetry 97 Oxygen Delivery Method Room Air BMI result Body Mass Index 19.5 Labs 06/24/25 13:21 06/25/25 08:04 Medications Medications Current Medications Acetaminophen (Acetaminophen 325 Mg Tablet) 650 mg PO Q6H PRN PRN Reason: Headache/Pain, Scale 1-10 Last Admin: 07/24/25 09:56 Dose: 650 mg Al Hydroxide/Mg Hydroxide (Magnesium Hydrox/Alum Hydrox 30 Ml Oral.Susp) 30 ml PO Q6H PRN PRN Reason: Heartburn/Nausea Albuterol Sulfate (Albuterol Sulfate 90 Mcg 8 Gm Inhaler) 1 puff INHALE QID PRN PRN Reason: wheezing/SOB Brexpiprazole (Brexpiprazole 1 Mg Tablet) 0.5 mg PO BEDTIME [facility] Last Admin: 07/30/25 20:15 Dose: 0.5 mg Levothyroxine Sodium (Levothyroxine Sodium 50 Mcg Tablet) 50 mcg PO DAILY@0600 [facility] Last Admin: 07/31/25 05:10 Dose: 50 mcg Lidocaine (Lidocaine 4 % Patch Adh..Patch) 1 patch TRANSDERMA DAILY PRN PRN Reason: Pain Last Admin: 07/01/25 20:58 Dose: 1 patch Loperamide HCl (Loperamide Hcl 2 Mg Capsule) 2 mg PO Q4H PRN PRN Reason: loose stools Magnesium Hydroxide (Milk Of Magnesia 30 Ml Oral.Susp) 30 ml PO DAILY PRN PRN Reason: Constipation Midodrine (Midodrine Hcl 5 Mg Tablet) 5 mg PO TID@0900,1300,1700 [facility] Last Admin: 07/30/25 16:50 Dose: 5 mg Mirtazapine (Mirtazapine 15 Mg Tablet) 15 mg PO BEDTIME [facility] Last Admin: 07/30/25 20:16 Dose: 15 mg Sertraline HCl (Sertraline Hcl 100 Mg Tablet) 100 mg PO DAILY [facility] Last Admin: 07/30/25 08:19 Dose: 100 mg Tramadol HCl (Tramadol Hcl 50 Mg Tablet) 25 mg PO Q4H PRN PRN Reason: mod to severe pain Trazodone HCl (Trazodone Hcl 50 Mg Tablet) 50 mg PO BEDTIME PRN PRN Reason: Insomnia Allergies Allergies Allergy/AdvReac Type Severity Reaction Status Date / Time penicillin V Allergy Unknown Unknown Verified 06/24/25 12:34 Assessment & Plan Assessment & Plan (1) Bipolar disorder with depression: Status: Acute Code(s): F31.9 - Bipolar disorder, unspecified (2) Cognitive impairment: Status: Acute Code(s): R41.89 - Other symptoms and signs involving cognitive functions and awareness Assessment and Plan: suspect it may be unipolar, no clear hx of hypomania or keisha. She does hx of trauma. Plan Ms. Chan is a 69 year-old woman hx of Bipolar (although do wander if it is more unipolar depression, hx of trauma and dysphoria). She was brought to [facility] by long time friend Carl due to increase anxious mood, feeling overwhelmed in context of impending eviction. She was here back in 12/2024 with similar presentation including increase anxious mood, feeling overwhelmed due to impending eviction. She is again noted to have difficulty remembering information including the fact that she had drops in BP and was discharged on midodrine, she does not remember this but continues to report feeling dizzy when standing up. She denies SI/HI. No psychosis or delusional content. We discussed risks, benefits and alternative treatment options. We discussed trying sertraline for depression. May consider discontinuing trileptal and rexulti. Monitor ortho VS, may need to restart midodrine. Pt discussed with SW referral to [facility]. (1) Bipolar disorder with depression: Status: Acute Code(s): F31.9 - Bipolar disorder, unspecified (2) Cognitive impairment: Status: Acute Code(s): R41.89 - Other symptoms and signs involving cognitive functions and awareness Assessment and Plan: She completed MOCA on 12/17/2024 scored 14/30, difficulties with executive function and visuospatial (2/5), attention, language repetition (0/2)/fluency (0/1), recall (0/5). Her orientation is intact, as well as naming. Shows vascular pattern of cognitive impairment. ACL scored 5. PLAN 1. Admit to S1, CV, 15 minutes checks for safety 2. start sertraline 25mg po daily, plan to titrate. 3. dc trileptal unclear therapeutic use. may lower rexulti. 4. obtain collateral information 5. Aftercare planning. 06/27 increase sertraline to 75mg po daily. lower rexulti to 0.5mg po qhs. 06/28, 06/29: no change in plan today 06/30 continue tx. loose stools, added immodium. 07/01 continue tx. monitor loose stools as it can be related to sertraline. 07/02 continue tx. 07/03 continue tx. increase sertraline 100mg po daily. 07/04 continue tx. 07/05: continue current management and treatment plan. 07/06: continue current management and treatment plan. 07/07 reports improvement in mood. no si/hi. taking medications. somewhat forgetful at times. 07/08 continue tx. 07/09 continue tx. pending placement. 07/10 continue tx. 07/11 continue tx. 07/12: stable. continue current mgmt. 07/13: stable presentation. continue current mgmt. 07/14 continue tx. 07/15 continue tx. 07/16 continue tx. awaiting placement. 07/17 continue tx. 07/18 continue tx. 07/21 continue tx. 07/22 continue tx. 07/23 continue tx. 07/24 continue tx. 07/25 continue tx. 07/26 continue treatment plan 07/27 continue current treatment plan 07/28 same presentation; continue treatment plan 07/29/25: Patient observed visible in common areas, attended groups, no safety concersn. No behavior issues. Sleep and appetite are good. VSs stable, compliant with meds, no side effects. Continue with current tx plan. 07/30/25: Patient slept for 7 hours, no issues with appetite, ambulate using walker. Report pain on right leg and hip. Helped patient wearing [employer] socking after assessment. Visible, attended groups, social with peers and staff appropriately. No behavior issues. SW continue working on referral. Patient confirmed that she is not evicted. Per SW, eviction is in the process. 07/31/25: Meet with patient in bed, report she feels upset not toward anyone but regarding the news got from that patient was not accepted to any programs/placement that we referred patient out. Report she got the news from yesterday and it was very stressful day , report that she has no money, and get no help from family, except from her boyfriend who lives in the same building. Encourage patient to be out and attend unit activities to distract her self. Observed patient is out attend groups, had a visit with boyfriend. Over heard that patient was crying and tearful during visit. Per nursing, patient slept for 7 hours, got x1v loose stool. Continue to provide emotional support. Patient educated on: diagnosis, medication risk/benefits and therapeutic strategies Informed Consent: understands Reason for continued inpatient stay Substantial Risk for: med/psych decompensation Time Spent With Patient Time: Total time managing care of this patient today ____ minutes.
[2025-07-31 08:30] VITALS: BP 108/61; PULSE 89; RESP 14; TEMP 36.2; O2SAT 95
[2025-07-31 10:14] VITALS: BMI 19.6
[2025-07-31 12:26] VITALS: BP 112/56; PULSE 78
[2025-07-31 17:06] VITALS: BP 138/80; PULSE 80
[2025-07-31 20:27] VITALS: BP 116/58; PULSE 70; RESP 18; TEMP 36.3; O2SAT 95
[2025-08-01 08:20] VITALS: BP 103/54; PULSE 77; RESP 16; TEMP 36.3; O2SAT 99
[2025-08-01 12:18] VITALS: BP 103/61; PULSE 74
--- NOTE | 2025-08-01 12:59 | HO.PSYCHPN ---
Subjective Subjective Date of Service: 08/01/25 Reason For Visit: SI Subjective Notes: Conditional Voluntary Medical Problems Affecting Mental Status: No Interim History: Medical record and nursing notes reviewed; case discussed during rounds with team/nursing staff, and met with patient for supportive therapy/psychoeducation, as well as medication management. Patient is in better mood today, less emotion compared to yesterday as she was told that she was not accepted to a lot of places and potential have to return to her apartment. She is visible, attentive groups, social and appropriate. Mood is tired. Sad as one of the peers she gets along with is discharging to today. Denies other safety concerns. Ambulate using the walker Medication Compliance: Yes Side effects from medications: No Attending Groups: Yes Review of Systems Acute medical concerns: No Medical Review of Systems: unchanged Review of Systems Review of Systems No SOB/N/V, no physical symptoms. Ambulating using walker. Yes all other systems are reviewed and are negative Mental Status Exam Mental Status Exam Narrative: Appearance: Appropriate casual attire, thin, in NAD Behavior: cooperative, anxious Psychomotor: no agitation or retardation noted, history of mild cogwheel on right arm. Speech: clear, normal rate/rhythm/volume, spontaneous TP: Goal oriented, anxious/worrying regarding placement which she has been declined from some facilities. TC: Dealing with impending eviction/homelessness Mood: tired , denies depression/anxiety Affect: congruent SI:none HI: none VH/AH: no overt signs Delusions:none Insight/judgment: impaired x 2. memory/cog: alert, oriented x 4. MOCA back on 12/2024 scored 14/30, difficulties with executive function and visuospatial (2/5), attention, language repetition (0/2)/fluency (0/1), recall (0/5). Her orientation is intact, as well as naming. Showing vascular pattern of cognitive impairment. Diagnostics Vital Signs (24Hr): Vital Signs - 24 hr 07/31/25 17:06 07/31/25 20:27 08/01/25 08:20 Temperature 97.3 F 97.3 F Pulse Rate 80 70 77 Respiratory Rate 18 16 Blood Pressure 138/80 116/58 L 103/54 L Pulse Oximetry 95 99 Oxygen Delivery Method Room Air Room Air 08/01/25 12:18 Temperature Pulse Rate 74 Respiratory Rate Blood Pressure 103/61 Pulse Oximetry Oxygen Delivery Method BMI result Body Mass Index 19.6 Labs 06/24/25 13:21 06/25/25 08:04 Medications Medications Current Medications Acetaminophen (Acetaminophen 325 Mg Tablet) 650 mg PO Q6H PRN PRN Reason: Headache/Pain, Scale 1-10 Last Admin: 07/24/25 09:56 Dose: 650 mg Al Hydroxide/Mg Hydroxide (Magnesium Hydrox/Alum Hydrox 30 Ml Oral.Susp) 30 ml PO Q6H PRN PRN Reason: Heartburn/Nausea Albuterol Sulfate (Albuterol Sulfate 90 Mcg 8 Gm Inhaler) 1 puff INHALE QID PRN PRN Reason: wheezing/SOB Brexpiprazole (Brexpiprazole 1 Mg Tablet) 0.5 mg PO BEDTIME [facility] Last Admin: 07/31/25 20:30 Dose: 0.5 mg Levothyroxine Sodium (Levothyroxine Sodium 50 Mcg Tablet) 50 mcg PO DAILY@0600 [facility] Last Admin: 08/01/25 05:12 Dose: 50 mcg Lidocaine (Lidocaine 4 % Patch Adh..Patch) 1 patch TRANSDERMA DAILY PRN PRN Reason: Pain Last Admin: 07/01/25 20:58 Dose: 1 patch Loperamide HCl (Loperamide Hcl 2 Mg Capsule) 2 mg PO Q4H PRN PRN Reason: loose stools Magnesium Hydroxide (Milk Of Magnesia 30 Ml Oral.Susp) 30 ml PO DAILY PRN PRN Reason: Constipation Midodrine (Midodrine Hcl 5 Mg Tablet) 5 mg PO TID@0900,1300,1700 [facility] Last Admin: 08/01/25 12:27 Dose: 5 mg Mirtazapine (Mirtazapine 15 Mg Tablet) 15 mg PO BEDTIME [facility] Last Admin: 07/31/25 20:30 Dose: 15 mg Sertraline HCl (Sertraline Hcl 100 Mg Tablet) 100 mg PO DAILY [facility] Last Admin: 08/01/25 09:14 Dose: 100 mg Tramadol HCl (Tramadol Hcl 50 Mg Tablet) 25 mg PO Q4H PRN PRN Reason: mod to severe pain Last Admin: 08/01/25 09:13 Dose: 25 mg Trazodone HCl (Trazodone Hcl 50 Mg Tablet) 50 mg PO BEDTIME PRN PRN Reason: Insomnia Allergies Allergies Allergy/AdvReac Type Severity Reaction Status Date / Time penicillin V Allergy Unknown Unknown Verified 06/24/25 12:34 Assessment & Plan Assessment & Plan (1) Bipolar disorder with depression: Status: Acute Code(s): F31.9 - Bipolar disorder, unspecified (2) Cognitive impairment: Status: Acute Code(s): R41.89 - Other symptoms and signs involving cognitive functions and awareness Assessment and Plan: suspect it may be unipolar, no clear hx of hypomania or keisha. She does hx of trauma. Plan Ms. Chan is a 69 year-old woman hx of Bipolar (although do wander if it is more unipolar depression, hx of trauma and dysphoria). She was brought to [facility] by long time friend Carl due to increase anxious mood, feeling overwhelmed in context of impending eviction. She was here back in 12/2024 with similar presentation including increase anxious mood, feeling overwhelmed due to impending eviction. She is again noted to have difficulty remembering information including the fact that she had drops in BP and was discharged on midodrine, she does not remember this but continues to report feeling dizzy when standing up. She denies SI/HI. No psychosis or delusional content. We discussed risks, benefits and alternative treatment options. We discussed trying sertraline for depression. May consider discontinuing trileptal and rexulti. Monitor ortho VS, may need to restart midodrine. Pt discussed with SW referral to [facility]. (1) Bipolar disorder with depression: Status: Acute Code(s): F31.9 - Bipolar disorder, unspecified (2) Cognitive impairment: Status: Acute Code(s): R41.89 - Other symptoms and signs involving cognitive functions and awareness Assessment and Plan: She completed MOCA on 12/17/2024 scored 14/30, difficulties with executive function and visuospatial (2/5), attention, language repetition (0/2)/fluency (0/1), recall (0/5). Her orientation is intact, as well as naming. Shows vascular pattern of cognitive impairment. ACL scored 5. PLAN 1. Admit to S1, CV, 15 minutes checks for safety 2. start sertraline 25mg po daily, plan to titrate. 3. dc trileptal unclear therapeutic use. may lower rexulti. 4. obtain collateral information 5. Aftercare planning. 06/27 increase sertraline to 75mg po daily. lower rexulti to 0.5mg po qhs. 06/28, 06/29: no change in plan today 06/30 continue tx. loose stools, added immodium. 07/01 continue tx. monitor loose stools as it can be related to sertraline. 07/02 continue tx. 07/03 continue tx. increase sertraline 100mg po daily. 07/04 continue tx. 07/05: continue current management and treatment plan. 07/06: continue current management and treatment plan. 07/07 reports improvement in mood. no si/hi. taking medications. somewhat forgetful at times. 07/08 continue tx. 07/09 continue tx. pending placement. 07/10 continue tx. 07/11 continue tx. 07/12: stable. continue current mgmt. 07/13: stable presentation. continue current mgmt. 07/14 continue tx. 07/15 continue tx. 07/16 continue tx. awaiting placement. 07/17 continue tx. 07/18 continue tx. 07/21 continue tx. 07/22 continue tx. 07/23 continue tx. 07/24 continue tx. 07/25 continue tx. 07/26 continue treatment plan 07/27 continue current treatment plan 07/28 same presentation; continue treatment plan 07/29/25: Patient observed visible in common areas, attended groups, no safety concersn. No behavior issues. Sleep and appetite are good. VSs stable, compliant with meds, no side effects. Continue with current tx plan. 07/30/25: Patient slept for 7 hours, no issues with appetite, ambulate using walker. Report pain on right leg and hip. Helped patient wearing ENRRIQUE socking after assessment. Visible, attended groups, social with peers and staff appropriately. No behavior issues. SW continue working on referral. Patient confirmed that she is not evicted. Per , eviction is in the process. 07/31/25: Meet with patient in bed, report she feels upset not toward anyone but regarding the news got from that patient was not accepted to any programs/placement that we referred patient out. Report she got the news from yesterday and it was very stressful day , report that she has no money, and get no help from family, except from her boyfriend who lives in the same building. Encourage patient to be out and attend unit activities to distract her self. Observed patient is out attend groups, had a visit with boyfriend. Over heard that patient was crying and tearful during visit. Per nursing, patient slept for 7 hours, got x1 loose stool. Continue to provide emotional support. 08/01/25: Patient is in better mood today, less emotion compared to yesterday as she was told that she was not accepted to a lot of places and potential have to return to her apartment. She is visible, attentive groups, social and appropriate. Mood is tired. Sad as one of the peers she gets along with is discharging to today. Denies other safety concerns. Ambulate using the walker Patient educated on: diagnosis, medication risk/benefits and therapeutic strategies Informed Consent: understands and further education needed Reason for continued inpatient stay Substantial Risk for: inability to function and med/psych decompensation Time Spent With Patient Time: Total time managing care of this patient today ____ minutes.
[2025-08-01 16:47] VITALS: BP 108/61; PULSE 81
[2025-08-01 20:02] VITALS: BP 120/62; PULSE 75; RESP 16; TEMP 36.8; O2SAT 97
[2025-08-02 08:00] VITALS: BP 111/70; PULSE 83; RESP 16; TEMP 36.7; O2SAT 95
[2025-08-02 09:09] VITALS: BP 111/70
[2025-08-02 14:12] VITALS: BP 111/65
[2025-08-02 17:39] VITALS: BP 110/59
[2025-08-02 19:58] VITALS: BP 109/64; PULSE 79; TEMP 37; O2SAT 96
--- NOTE | 2025-08-02 20:33 | HO.PSYCHPN ---
Subjective Subjective Date of Service: 08/02/25 Reason For Visit: SI Subjective Notes: Conditional Voluntary Guardianship: No Medical Problems Affecting Mental Status: No Interim History: Medical record and nursing notes reviewed; case discussed during rounds with team/nursing staff, and met with patient for supportive therapy/psychoeducation, as well as medication management. Patient slept for 7 hours, compliant with medications, vital signs stable, denies side effects. Given tramadol for pain prior to meeting with this provider with good effect I do not feel anything when asked regarding the pain. Reports continued to feel tired which could be affected from the news that she got from treatment team a couple of days ago regarding placement. She appears to processes well. Later on observed visible in common areas, appropriate. Medication Compliance: Yes Side effects from medications: No Attending Groups: Intermittent Review of Systems Acute medical concerns: No Medical Review of Systems: unchanged Review of Systems Review of Systems No SOB/N/V, no physical symptoms. Ambulating using walker. Yes all other systems are reviewed and are negative Mental Status Exam Mental Status Exam Narrative: Appearance: Appropriate casual attire, thin, in NAD Behavior: cooperative, anxious Psychomotor: no agitation or retardation noted, history of mild cogwheel on right arm. Speech: clear, normal rate/rhythm/volume, spontaneous TP: Goal oriented, anxious/worrying regarding placement which she has been declined from some facilities. TC: Dealing with impending eviction/homelessness Mood: tired , denies depression/anxiety Affect: congruent SI:none HI: none VH/AH: no overt signs Delusions:none Insight/judgment: impaired x 2. memory/cog: alert, oriented x 4. MOCA back on 12/2024 scored 14/30, difficulties with executive function and visuospatial (2/5), attention, language repetition (0/2)/fluency (0/1), recall (0/5). Her orientation is intact, as well as naming. Showing vascular pattern of cognitive impairment. Diagnostics Vital Signs (24Hr): Vital Signs - 24 hr 08/02/25 08:00 08/02/25 09:09 08/02/25 14:12 Temperature 98.1 F Pulse Rate 83 Respiratory Rate 16 Blood Pressure 111/70 111/70 111/65 Pulse Oximetry 95 Oxygen Delivery Method Room Air 08/02/25 17:39 08/02/25 19:58 Temperature 98.6 F Pulse Rate 79 Respiratory Rate Blood Pressure 110/59 L 109/64 Pulse Oximetry 96 Oxygen Delivery Method Room Air BMI result Body Mass Index 19.6 Labs 06/24/25 13:21 06/25/25 08:04 Medications Medications Current Medications Acetaminophen (Acetaminophen 325 Mg Tablet) 650 mg PO Q6H PRN PRN Reason: Headache/Pain, Scale 1-10 Last Admin: 07/24/25 09:56 Dose: 650 mg Al Hydroxide/Mg Hydroxide (Magnesium Hydrox/Alum Hydrox 30 Ml Oral.Susp) 30 ml PO Q6H PRN PRN Reason: Heartburn/Nausea Albuterol Sulfate (Albuterol Sulfate 90 Mcg 8 Gm Inhaler) 1 puff INHALE QID PRN PRN Reason: wheezing/SOB Brexpiprazole (Brexpiprazole 1 Mg Tablet) 0.5 mg PO BEDTIME [facility] Last Admin: 08/02/25 20:21 Dose: 0.5 mg Levothyroxine Sodium (Levothyroxine Sodium 50 Mcg Tablet) 50 mcg PO DAILY@0600 [facility] Last Admin: 08/02/25 05:20 Dose: 50 mcg Lidocaine (Lidocaine 4 % Patch Adh..Patch) 1 patch TRANSDERMA DAILY PRN PRN Reason: Pain Last Admin: 07/01/25 20:58 Dose: 1 patch Loperamide HCl (Loperamide Hcl 2 Mg Capsule) 2 mg PO Q4H PRN PRN Reason: loose stools Magnesium Hydroxide (Milk Of Magnesia 30 Ml Oral.Susp) 30 ml PO DAILY PRN PRN Reason: Constipation Midodrine (Midodrine Hcl 5 Mg Tablet) 5 mg PO TID@0900,1300,1700 [facility] Last Admin: 08/02/25 17:39 Dose: 5 mg Mirtazapine (Mirtazapine 15 Mg Tablet) 15 mg PO BEDTIME [facility] Last Admin: 08/02/25 20:21 Dose: 15 mg Sertraline HCl (Sertraline Hcl 100 Mg Tablet) 100 mg PO DAILY [facility] Last Admin: 08/02/25 09:09 Dose: 100 mg Tramadol HCl (Tramadol Hcl 50 Mg Tablet) 25 mg PO Q4H PRN PRN Reason: mod to severe pain Last Admin: 08/02/25 09:19 Dose: 25 mg Trazodone HCl (Trazodone Hcl 50 Mg Tablet) 50 mg PO BEDTIME PRN PRN Reason: Insomnia Allergies Allergies Allergy/AdvReac Type Severity Reaction Status Date / Time penicillin V Allergy Unknown Unknown Verified 06/24/25 12:34 Assessment & Plan Assessment & Plan (1) Bipolar disorder with depression: Status: Acute Code(s): F31.9 - Bipolar disorder, unspecified (2) Cognitive impairment: Status: Acute Code(s): R41.89 - Other symptoms and signs involving cognitive functions and awareness Assessment and Plan: suspect it may be unipolar, no clear hx of hypomania or keisha. She does hx of trauma. Plan Ms. Chan is a 69 year-old woman hx of Bipolar (although do wander if it is more unipolar depression, hx of trauma and dysphoria). She was brought to [facility] by long time friend Carl due to increase anxious mood, feeling overwhelmed in context of impending eviction. She was here back in 12/2024 with similar presentation including increase anxious mood, feeling overwhelmed due to impending eviction. She is again noted to have difficulty remembering information including the fact that she had drops in BP and was discharged on midodrine, she does not remember this but continues to report feeling dizzy when standing up. She denies SI/HI. No psychosis or delusional content. We discussed risks, benefits and alternative treatment options. We discussed trying sertraline for depression. May consider discontinuing trileptal and rexulti. Monitor ortho VS, may need to restart midodrine. Pt discussed with SW referral to [facility]. (1) Bipolar disorder with depression: Status: Acute Code(s): F31.9 - Bipolar disorder, unspecified (2) Cognitive impairment: Status: Acute Code(s): R41.89 - Other symptoms and signs involving cognitive functions and awareness Assessment and Plan: She completed MOCA on 12/17/2024 scored 14/30, difficulties with executive function and visuospatial (2/5), attention, language repetition (0/2)/fluency (0/1), recall (0/5). Her orientation is intact, as well as naming. Shows vascular pattern of cognitive impairment. ACL scored 5. PLAN 1. Admit to S1, CV, 15 minutes checks for safety 2. start sertraline 25mg po daily, plan to titrate. 3. dc trileptal unclear therapeutic use. may lower rexulti. 4. obtain collateral information 5. Aftercare planning. 06/27 increase sertraline to 75mg po daily. lower rexulti to 0.5mg po qhs. 06/28, 06/29: no change in plan today 06/30 continue tx. loose stools, added immodium. 07/01 continue tx. monitor loose stools as it can be related to sertraline. 07/02 continue tx. 07/03 continue tx. increase sertraline 100mg po daily. 07/04 continue tx. 07/05: continue current management and treatment plan. 07/06: continue current management and treatment plan. 07/07 reports improvement in mood. no si/hi. taking medications. somewhat forgetful at times. 07/08 continue tx. 07/09 continue tx. pending placement. 07/10 continue tx. 07/11 continue tx. 07/12: stable. continue current mgmt. 07/13: stable presentation. continue current mgmt. 07/14 continue tx. 07/15 continue tx. 07/16 continue tx. awaiting placement. 07/17 continue tx. 07/18 continue tx. 07/21 continue tx. 07/22 continue tx. 07/23 continue tx. 07/24 continue tx. 07/25 continue tx. 07/26 continue treatment plan 07/27 continue current treatment plan 07/28 same presentation; continue treatment plan 07/29/25: Patient observed visible in common areas, attended groups, no safety concersn. No behavior issues. Sleep and appetite are good. VSs stable, compliant with meds, no side effects. Continue with current tx plan. 07/30/25: Patient slept for 7 hours, no issues with appetite, ambulate using walker. Report pain on right leg and hip. Helped patient wearing ENRRIQUE socking after assessment. Visible, attended groups, social with peers and staff appropriately. No behavior issues. SW continue working on referral. Patient confirmed that she is not evicted. Per , eviction is in the process. 07/31/25: Meet with patient in bed, report she feels upset not toward anyone but regarding the news got from that patient was not accepted to any programs/placement that we referred patient out. Report she got the news from yesterday and it was very stressful day , report that she has no money, and get no help from family, except from her boyfriend who lives in the same building. Encourage patient to be out and attend unit activities to distract her self. Observed patient is out attend groups, had a visit with boyfriend. Over heard that patient was crying and tearful during visit. Per nursing, patient slept for 7 hours, got x1 loose stool. Continue to provide emotional support. 08/01/25: Patient is in better mood today, less emotion compared to yesterday as she was told that she was not accepted to a lot of places and potential have to return to her apartment. She is visible, attentive groups, social and appropriate. Mood is tired. Sad as one of the peers she gets along with is discharging to today. Denies other safety concerns. Ambulate using the walker. 08/02/25: Patient slept for 7 hours, compliant with medications, vital signs stable, denies side effects. Given tramadol for pain prior to meeting with this provider with good effect I do not feel anything when asked regarding the pain. Reports continued to feel tired which could be affected from the news that she got from treatment team a couple of days ago regarding placement. She appears to processes well. Later on observed visible in common areas, appropriate. Patient educated on: medication risk/benefits and therapeutic strategies Informed Consent: understands Reason for continued inpatient stay Substantial Risk for: med/psych decompensation Time Spent With Patient Time: Total time managing care of this patient today ____ minutes.
[2025-08-03 08:00] VITALS: BP 111/60; PULSE 87; RESP 16; TEMP 36.6; O2SAT 96
[2025-08-03 08:26] VITALS: BP 111/60
[2025-08-03 13:05] VITALS: BP 98/58
--- NOTE | 2025-08-03 13:52 | HO.PSYCHPN ---
Subjective Subjective Date of Service: 08/03/25 Reason For Visit: SI Subjective Notes: Conditional Voluntary Healthcare Proxy: No Guardianship: No Medical Problems Affecting Mental Status: No Interim History: Medical record and nursing notes reviewed; case discussed during rounds with team/nursing staff, and met with patient for supportive therapy/psychoeducation, as well as medication management. Patient spent most of the day in common areas, attended groups, went out for fresh air. Medication compliant, pain was not bad today so she received Tylenol with good effect. No safety concerns, ambulate using the walker Medication Compliance: Yes Side effects from medications: No Attending Groups: Yes Review of Systems Acute medical concerns: No Medical Review of Systems: unchanged Review of Systems Review of Systems No SOB/N/V, no physical symptoms. Ambulating using walker. Yes all other systems are reviewed and are negative Mental Status Exam Mental Status Exam Narrative: Appearance: Appropriate casual attire, thin, in NAD Behavior: cooperative, anxious Psychomotor: no agitation or retardation noted, history of mild cogwheel on right arm. Speech: clear, normal rate/rhythm/volume, spontaneous TP: Goal oriented, anxious/worrying regarding placement which she has been declined from some facilities. TC: Dealing with impending eviction/homelessness Mood: tired , denies depression/anxiety Affect: congruent SI:none HI: none VH/AH: no overt signs Delusions:none Insight/judgment: impaired x 2. memory/cog: alert, oriented x 4. MOCA back on 12/2024 scored 14/30, difficulties with executive function and visuospatial (2/5), attention, language repetition (0/2)/fluency (0/1), recall (0/5). Her orientation is intact, as well as naming. Showing vascular pattern of cognitive impairment. Diagnostics Vital Signs (24Hr): Vital Signs - 24 hr 08/02/25 14:12 08/02/25 17:39 08/02/25 19:58 Temperature 98.6 F Pulse Rate 79 Respiratory Rate Blood Pressure 111/65 110/59 L 109/64 Pulse Oximetry 96 Oxygen Delivery Method Room Air 08/03/25 08:00 08/03/25 08:26 08/03/25 13:05 Temperature 97.9 F Pulse Rate 87 Respiratory Rate 16 Blood Pressure 111/60 111/60 98/58 L Pulse Oximetry 96 Oxygen Delivery Method Room Air BMI result Body Mass Index 19.6 Labs 06/24/25 13:21 06/25/25 08:04 Medications Medications Current Medications Acetaminophen (Acetaminophen 325 Mg Tablet) 650 mg PO Q6H PRN PRN Reason: Headache/Pain, Scale 1-10 Last Admin: 08/03/25 08:29 Dose: 650 mg Al Hydroxide/Mg Hydroxide (Magnesium Hydrox/Alum Hydrox 30 Ml Oral.Susp) 30 ml PO Q6H PRN PRN Reason: Heartburn/Nausea Albuterol Sulfate (Albuterol Sulfate 90 Mcg 8 Gm Inhaler) 1 puff INHALE QID PRN PRN Reason: wheezing/SOB Brexpiprazole (Brexpiprazole 1 Mg Tablet) 0.5 mg PO BEDTIME [facility] Last Admin: 08/02/25 20:21 Dose: 0.5 mg Levothyroxine Sodium (Levothyroxine Sodium 50 Mcg Tablet) 50 mcg PO DAILY@0600 [facility] Last Admin: 08/03/25 06:46 Dose: 50 mcg Lidocaine (Lidocaine 4 % Patch Adh..Patch) 1 patch TRANSDERMA DAILY PRN PRN Reason: Pain Last Admin: 07/01/25 20:58 Dose: 1 patch Loperamide HCl (Loperamide Hcl 2 Mg Capsule) 2 mg PO Q4H PRN PRN Reason: loose stools Magnesium Hydroxide (Milk Of Magnesia 30 Ml Oral.Susp) 30 ml PO DAILY PRN PRN Reason: Constipation Midodrine (Midodrine Hcl 5 Mg Tablet) 5 mg PO TID@0900,1300,1700 [facility] Last Admin: 08/03/25 13:05 Dose: 5 mg Mirtazapine (Mirtazapine 15 Mg Tablet) 15 mg PO BEDTIME [facility] Last Admin: 08/02/25 20:21 Dose: 15 mg Sertraline HCl (Sertraline Hcl 100 Mg Tablet) 100 mg PO DAILY [facility] Last Admin: 08/03/25 08:26 Dose: 100 mg Tramadol HCl (Tramadol Hcl 50 Mg Tablet) 25 mg PO Q4H PRN PRN Reason: mod to severe pain Last Admin: 08/03/25 13:04 Dose: 25 mg Trazodone HCl (Trazodone Hcl 50 Mg Tablet) 50 mg PO BEDTIME PRN PRN Reason: Insomnia Allergies Allergies Allergy/AdvReac Type Severity Reaction Status Date / Time penicillin V Allergy Unknown Unknown Verified 06/24/25 12:34 Assessment & Plan Assessment & Plan (1) Bipolar disorder with depression: Status: Acute Code(s): F31.9 - Bipolar disorder, unspecified (2) Cognitive impairment: Status: Acute Code(s): R41.89 - Other symptoms and signs involving cognitive functions and awareness Assessment and Plan: suspect it may be unipolar, no clear hx of hypomania or keisha. She does hx of trauma. Plan Ms. Chan is a 69 year-old woman hx of Bipolar (although do wander if it is more unipolar depression, hx of trauma and dysphoria). She was brought to [facility] by long time friend Carl due to increase anxious mood, feeling overwhelmed in context of impending eviction. She was here back in 12/2024 with similar presentation including increase anxious mood, feeling overwhelmed due to impending eviction. She is again noted to have difficulty remembering information including the fact that she had drops in BP and was discharged on midodrine, she does not remember this but continues to report feeling dizzy when standing up. She denies SI/HI. No psychosis or delusional content. We discussed risks, benefits and alternative treatment options. We discussed trying sertraline for depression. May consider discontinuing trileptal and rexulti. Monitor ortho VS, may need to restart midodrine. Pt discussed with referral to [facility]. (1) Bipolar disorder with depression: Status: Acute Code(s): F31.9 - Bipolar disorder, unspecified (2) Cognitive impairment: Status: Acute Code(s): R41.89 - Other symptoms and signs involving cognitive functions and awareness Assessment and Plan: She completed MOCA on 12/17/2024 scored 14/30, difficulties with executive function and visuospatial (2/5), attention, language repetition (0/2)/fluency (0/1), recall (0/5). Her orientation is intact, as well as naming. Shows vascular pattern of cognitive impairment. ACL scored 5. PLAN 1. Admit to S1, CV, 15 minutes checks for safety 2. start sertraline 25mg po daily, plan to titrate. 3. dc trileptal unclear therapeutic use. may lower rexulti. 4. obtain collateral information 5. Aftercare planning. 06/27 increase sertraline to 75mg po daily. lower rexulti to 0.5mg po qhs. 06/28, 06/29: no change in plan today 06/30 continue tx. loose stools, added immodium. 07/01 continue tx. monitor loose stools as it can be related to sertraline. 07/02 continue tx. 07/03 continue tx. increase sertraline 100mg po daily. 07/04 continue tx. 07/05: continue current management and treatment plan. 07/06: continue current management and treatment plan. 07/07 reports improvement in mood. no si/hi. taking medications. somewhat forgetful at times. 07/08 continue tx. 07/09 continue tx. pending placement. 07/10 continue tx. 07/11 continue tx. 07/12: stable. continue current mgmt. 07/13: stable presentation. continue current mgmt. 07/14 continue tx. 07/15 continue tx. 07/16 continue tx. awaiting placement. 07/17 continue tx. 07/18 continue tx. 07/21 continue tx. 07/22 continue tx. 07/23 continue tx. 07/24 continue tx. 07/25 continue tx. 07/26 continue treatment plan 07/27 continue current treatment plan 07/28 same presentation; continue treatment plan 07/29/25: Patient observed visible in common areas, attended groups, no safety concersn. No behavior issues. Sleep and appetite are good. VSs stable, compliant with meds, no side effects. Continue with current tx plan. 07/30/25: Patient slept for 7 hours, no issues with appetite, ambulate using walker. Report pain on right leg and hip. Helped patient wearing ENRRIQUE socking after assessment. Visible, attended groups, social with peers and staff appropriately. No behavior issues. SW continue working on referral. Patient confirmed that she is not evicted. Per , eviction is in the process. 07/31/25: Meet with patient in bed, report she feels upset not toward anyone but regarding the news got from that patient was not accepted to any programs/placement that we referred patient out. Report she got the news from yesterday and it was very stressful day , report that she has no money, and get no help from family, except from her boyfriend who lives in the same building. Encourage patient to be out and attend unit activities to distract her self. Observed patient is out attend groups, had a visit with boyfriend. Over heard that patient was crying and tearful during visit. Per nursing, patient slept for 7 hours, got x1 loose stool. Continue to provide emotional support. 08/01/25: Patient is in better mood today, less emotion compared to yesterday as she was told that she was not accepted to a lot of places and potential have to return to her apartment. She is visible, attentive groups, social and appropriate. Mood is tired. Sad as one of the peers she gets along with is discharging to today. Denies other safety concerns. Ambulate using the walker. 08/02/25: Patient slept for 7 hours, compliant with medications, vital signs stable, denies side effects. Given tramadol for pain prior to meeting with this provider with good effect I do not feel anything when asked regarding the pain. Reports continued to feel tired which could be affected from the news that she got from treatment team a couple of days ago regarding placement. She appears to processes well. Later on observed visible in common areas, appropriate. 08/03/25: Patient spent most of the day in common areas, attended groups, went out for fresh air. Medication compliant, pain was not bad today so she received Tylenol with good effect. No safety concerns, ambulate using the walker Patient educated on: medication risk/benefits and therapeutic strategies Informed Consent: understands Reason for continued inpatient stay Substantial Risk for: med/psych decompensation Time Spent With Patient Time: Total time managing care of this patient today ____ minutes.
[2025-08-03 17:40] VITALS: BP 116/56
[2025-08-03 20:17] VITALS: BP 105/51; PULSE 73; RESP 16; TEMP 36.6; O2SAT 96
[2025-08-04 08:00] VITALS: BP 112/68; PULSE 90; RESP 16; TEMP 36.5; O2SAT 94
[2025-08-04 12:22] VITALS: BP 104/60
[2025-08-04 16:36] VITALS: BP 110/60
--- NOTE | 2025-08-04 17:05 | P.PNPSI_ITS ---
Subjective Subjective Date of Service: 08/04/25 Reason For Visit: SI Subjective Notes: Conditional Voluntary Healthcare Proxy: No Guardianship: No Medical Problems Affecting Mental Status: No Interim History: Medical record and nursing notes reviewed; case discussed during rounds with team/nursing staff, and met with patient for supportive therapy/psychoeducation, as well as medication management. Per SW note Patient was less anxious over weekend. Aj Carrillo RN to come out to completed assessment this week likely within the next couple of days . Patient will discharge home likely later this week once assessment is complete and continue enrollment process for [facility] Patient is consistent with report during encounter with this provider. Visible, quiet, soical appropriately, using walker for ambulating, no fall. Report nervous regarding aftercare plan but denies depression. Report right leg pain is bothering her but has not yet asked for PRN tylenol or tramadol at the assessment time. Encourage to do so. Patient slept through the night, compliant with meds and denies side effects. Medication Compliance: Yes Side effects from medications: No Attending Groups: Yes Mental Status Exam Mental Status Exam Narrative: Appearance: Appropriate casual attire, thin, in NAD Behavior: cooperative, anxious Psychomotor: no agitation or retardation noted, history of mild cogwheel on right arm. Speech: clear, normal rate/rhythm/volume, spontaneous TP: Goal oriented, anxious/worrying regarding placement which she has been declined from some facilities. TC: Dealing with impending eviction/homelessness Mood: nervous , denies depression. Affect: congruent SI:none HI: none VH/AH: no overt signs Delusions:none Insight/judgment: impaired x 2. memory/cog: alert, oriented x 4. MOCA back on 12/2024 scored 14/30, difficulties with executive function and visuospatial (2/5), attention, language repetition (0/2)/fluency (0/1), recall (0/5). Her orientation is intact, as well as naming. Showing vascular pattern of cognitive impairment. Diagnostics Vital Signs (24Hr): Vital Signs - 24 hr 08/03/25 17:40 08/03/25 20:17 08/04/25 08:00 Temperature 97.9 F 97.7 F Pulse Rate 73 90 Respiratory Rate 16 16 Blood Pressure 116/56 L 105/51 L 112/68 Pulse Oximetry 96 94 Oxygen Delivery Method Room Air Room Air 08/04/25 12:22 08/04/25 16:36 Temperature Pulse Rate Respiratory Rate Blood Pressure 104/60 110/60 Pulse Oximetry Oxygen Delivery Method BMI result Body Mass Index 19.6 Labs 06/24/25 13:21 06/25/25 08:04 Medications Medications Current Medications Acetaminophen (Acetaminophen 325 Mg Tablet) 650 mg PO Q6H PRN PRN Reason: Headache/Pain, Scale 1-10 Last Admin: 08/03/25 08:29 Dose: 650 mg Al Hydroxide/Mg Hydroxide (Magnesium Hydrox/Alum Hydrox 30 Ml Oral.Susp) 30 ml PO Q6H PRN PRN Reason: Heartburn/Nausea Albuterol Sulfate (Albuterol Sulfate 90 Mcg 8 Gm Inhaler) 1 puff INHALE QID PRN PRN Reason: wheezing/SOB Brexpiprazole (Brexpiprazole 1 Mg Tablet) 0.5 mg PO BEDTIME [facility] Last Admin: 08/03/25 20:22 Dose: 0.5 mg Levothyroxine Sodium (Levothyroxine Sodium 50 Mcg Tablet) 50 mcg PO DAILY@0600 [facility] Last Admin: 08/04/25 05:15 Dose: 50 mcg Lidocaine (Lidocaine 4 % Patch Adh..Patch) 1 patch TRANSDERMA DAILY PRN PRN Reason: Pain Last Admin: 07/01/25 20:58 Dose: 1 patch Loperamide HCl (Loperamide Hcl 2 Mg Capsule) 2 mg PO Q4H PRN PRN Reason: loose stools Magnesium Hydroxide (Milk Of Magnesia 30 Ml Oral.Susp) 30 ml PO DAILY PRN PRN Reason: Constipation Midodrine (Midodrine Hcl 5 Mg Tablet) 5 mg PO TID@0900,1300,1700 [facility] Last Admin: 08/04/25 16:36 Dose: 5 mg Mirtazapine (Mirtazapine 15 Mg Tablet) 15 mg PO BEDTIME [facility] Last Admin: 08/03/25 20:22 Dose: 15 mg Sertraline HCl (Sertraline Hcl 100 Mg Tablet) 100 mg PO DAILY [facility] Last Admin: 08/04/25 08:18 Dose: 100 mg Tramadol HCl (Tramadol Hcl 50 Mg Tablet) 25 mg PO Q4H PRN PRN Reason: mod to severe pain Last Admin: 08/03/25 13:04 Dose: 25 mg Trazodone HCl (Trazodone Hcl 50 Mg Tablet) 50 mg PO BEDTIME PRN PRN Reason: Insomnia Allergies Allergies Allergy/AdvReac Type Severity Reaction Status Date / Time penicillin V Allergy Unknown Unknown Verified 06/24/25 12:34 Assessment & Plan Assessment & Plan (1) Bipolar disorder with depression: Status: Acute Code(s): F31.9 - Bipolar disorder, unspecified (2) Cognitive impairment: Status: Acute Code(s): R41.89 - Other symptoms and signs involving cognitive functions and awareness Assessment and Plan: suspect it may be unipolar, no clear hx of hypomania or keisha. She does hx of trauma. Plan Ms. Chan is a 69 year-old woman hx of Bipolar (although do wander if it is more unipolar depression, hx of trauma and dysphoria). She was brought to [facility] by long time friend Carl due to increase anxious mood, feeling overwhelmed in context of impending eviction. She was here back in 12/2024 with similar presentation including increase anxious mood, feeling overwhelmed due to impending eviction. She is again noted to have difficulty remembering information including the fact that she had drops in BP and was discharged on midodrine, she does not remember this but continues to report feeling dizzy when standing up. She denies SI/HI. No psychosis or delusional content. We discussed risks, benefits and alternative treatment options. We discussed trying sertraline for depression. May consider discontinuing trileptal and rexulti. Monitor ortho VS, may need to restart midodrine. Pt discussed with SW referral to [facility]. (1) Bipolar disorder with depression: Status: Acute Code(s): F31.9 - Bipolar disorder, unspecified (2) Cognitive impairment: Status: Acute Code(s): R41.89 - Other symptoms and signs involving cognitive functions and awareness Assessment and Plan: She completed MOCA on 12/17/2024 scored 14/30, difficulties with executive function and visuospatial (2/5), attention, language repetition (0/2)/fluency (0/1), recall (0/5). Her orientation is intact, as well as naming. Shows vascular pattern of cognitive impairment. ACL scored 5. PLAN 1. Admit to S1, CV, 15 minutes checks for safety 2. start sertraline 25mg po daily, plan to titrate. 3. dc trileptal unclear therapeutic use. may lower rexulti. 4. obtain collateral information 5. Aftercare planning. 06/27 increase sertraline to 75mg po daily. lower rexulti to 0.5mg po qhs. 06/28, 06/29: no change in plan today 06/30 continue tx. loose stools, added immodium. 07/01 continue tx. monitor loose stools as it can be related to sertraline. 07/02 continue tx. 07/03 continue tx. increase sertraline 100mg po daily. 07/04 continue tx. 07/05: continue current management and treatment plan. 07/06: continue current management and treatment plan. 07/07 reports improvement in mood. no si/hi. taking medications. somewhat forgetful at times. 07/08 continue tx. 07/09 continue tx. pending placement. 07/10 continue tx. 07/11 continue tx. 07/12: stable. continue current mgmt. 07/13: stable presentation. continue current mgmt. 07/14 continue tx. 07/15 continue tx. 07/16 continue tx. awaiting placement. 07/17 continue tx. 07/18 continue tx. 07/21 continue tx. 07/22 continue tx. 07/23 continue tx. 07/24 continue tx. 07/25 continue tx. 07/26 continue treatment plan 07/27 continue current treatment plan 07/28 same presentation; continue treatment plan 07/29/25: Patient observed visible in common areas, attended groups, no safety concersn. No behavior issues. Sleep and appetite are good. VSs stable, compliant with meds, no side effects. Continue with current tx plan. 07/30/25: Patient slept for 7 hours, no issues with appetite, ambulate using walker. Report pain on right leg and hip. Helped patient wearing ENRRIQUE socking after assessment. Visible, attended groups, social with peers and staff appropriately. No behavior issues. SW continue working on referral. Patient confirmed that she is not evicted. Per SW, eviction is in the process. 07/31/25: Meet with patient in bed, report she feels upset not toward anyone but regarding the news got from that patient was not accepted to any programs/placement that we referred patient out. Report she got the news from yesterday and it was very stressful day , report that she has no money, and get no help from family, except from her boyfriend who lives in the same building. Encourage patient to be out and attend unit activities to distract her self. Observed patient is out attend groups, had a visit with boyfriend. Over heard that patient was crying and tearful during visit. Per nursing, patient slept for 7 hours, got x1 loose stool. Continue to provide emotional support. 08/01/25: Patient is in better mood today, less emotion compared to yesterday as she was told that she was not accepted to a lot of places and potential have to return to her apartment. She is visible, attentive groups, social and appropriate. Mood is tired. Sad as one of the peers she gets along with is discharging to today. Denies other safety concerns. Ambulate using the walker. 08/02/25: Patient slept for 7 hours, compliant with medications, vital signs stable, denies side effects. Given tramadol for pain prior to meeting with this provider with good effect I do not feel anything when asked regarding the pain. Reports continued to feel tired which could be affected from the news that she got from treatment team a couple of days ago regarding placement. She appears to processes well. Later on observed visible in common areas, appropriate. 08/03/25: Patient spent most of the day in common areas, attended groups, went out for fresh air. Medication compliant, pain was not bad today so she received Tylenol with good effect. No safety concerns, ambulate using the walker 08/04/25: Per SW note Patient was less anxious over weekend. Aj Carrillo RN to come out to completed assessment this week likely within the next couple of days . Patient will discharge home likely later this week once assessment is complete and continue enrollment process for [facility] Patient is consistent with report during encounter with this provider. Visible, quiet, soical appropriately, using walker for ambulating, no fall. Report nervous regarding aftercare plan but denies depression. Report right leg pain is bothering her but has not yet asked for PRN tylenol or tramadol at the assessment time. Encourage to do so. Patient slept through the night, compliant with meds and denies side effects. Patient educated on: diagnosis, medication risk/benefits and therapeutic strategies Informed Consent: understands and further education needed Reason for continued inpatient stay Substantial Risk for: med/psych decompensation Time Spent With Patient Time: Total time managing care of this patient today ____ minutes.
--- NOTE | 2025-08-04 17:09 | HO.PSYCHPN ---
Subjective Subjective Date of Service: 08/04/25 Reason For Visit: SI Diagnostics Vital Signs (24Hr): Vital Signs - 24 hr 08/03/25 17:40 08/03/25 20:17 08/04/25 08:00 Temperature 97.9 F 97.7 F Pulse Rate 73 90 Respiratory Rate 16 16 Blood Pressure 116/56 L 105/51 L 112/68 Pulse Oximetry 96 94 Oxygen Delivery Method Room Air Room Air 08/04/25 12:22 08/04/25 16:36 Temperature Pulse Rate Respiratory Rate Blood Pressure 104/60 110/60 Pulse Oximetry Oxygen Delivery Method BMI result Body Mass Index 19.6 Labs 06/24/25 13:21 06/25/25 08:04 Medications Medications Current Medications Acetaminophen (Acetaminophen 325 Mg Tablet) 650 mg PO Q6H PRN PRN Reason: Headache/Pain, Scale 1-10 Last Admin: 08/03/25 08:29 Dose: 650 mg Al Hydroxide/Mg Hydroxide (Magnesium Hydrox/Alum Hydrox 30 Ml Oral.Susp) 30 ml PO Q6H PRN PRN Reason: Heartburn/Nausea Albuterol Sulfate (Albuterol Sulfate 90 Mcg 8 Gm Inhaler) 1 puff INHALE QID PRN PRN Reason: wheezing/SOB Brexpiprazole (Brexpiprazole 1 Mg Tablet) 0.5 mg PO BEDTIME [facility] Last Admin: 08/03/25 20:22 Dose: 0.5 mg Levothyroxine Sodium (Levothyroxine Sodium 50 Mcg Tablet) 50 mcg PO DAILY@0600 [facility] Last Admin: 08/04/25 05:15 Dose: 50 mcg Lidocaine (Lidocaine 4 % Patch Adh..Patch) 1 patch TRANSDERMA DAILY PRN PRN Reason: Pain Last Admin: 07/01/25 20:58 Dose: 1 patch Loperamide HCl (Loperamide Hcl 2 Mg Capsule) 2 mg PO Q4H PRN PRN Reason: loose stools Magnesium Hydroxide (Milk Of Magnesia 30 Ml Oral.Susp) 30 ml PO DAILY PRN PRN Reason: Constipation Midodrine (Midodrine Hcl 5 Mg Tablet) 5 mg PO TID@0900,1300,1700 [facility] Last Admin: 08/04/25 16:36 Dose: 5 mg Mirtazapine (Mirtazapine 15 Mg Tablet) 15 mg PO BEDTIME [facility] Last Admin: 10/19/25 20:22 Dose: 15 mg Sertraline HCl (Sertraline Hcl 100 Mg Tablet) 100 mg PO DAILY [facility] Last Admin: 08/04/25 08:18 Dose: 100 mg Tramadol HCl (Tramadol Hcl 50 Mg Tablet) 25 mg PO Q4H PRN PRN Reason: mod to severe pain Last Admin: 08/03/25 13:04 Dose: 25 mg Trazodone HCl (Trazodone Hcl 50 Mg Tablet) 50 mg PO BEDTIME PRN PRN Reason: Insomnia Allergies Allergies Allergy/AdvReac Type Severity Reaction Status Date / Time penicillin V Allergy Unknown Unknown Verified 06/24/25 12:34 Assessment & Plan Assessment & Plan (1) Bipolar disorder with depression: Status: Acute Code(s): F31.9 - Bipolar disorder, unspecified (2) Cognitive impairment: Status: Acute Code(s): R41.89 - Other symptoms and signs involving cognitive functions and awareness Assessment and Plan: suspect it may be unipolar, no clear hx of hypomania or keisha. She does hx of trauma. Plan Ms. Chan is a 69 year-old woman hx of Bipolar (although do wander if it is more unipolar depression, hx of trauma and dysphoria). She was brought to [facility] by long time friend Carl due to increase anxious mood, feeling overwhelmed in context of impending eviction. She was here back in 12/2024 with similar presentation including increase anxious mood, feeling overwhelmed due to impending eviction. She is again noted to have difficulty remembering information including the fact that she had drops in BP and was discharged on midodrine, she does not remember this but continues to report feeling dizzy when standing up. She denies SI/HI. No psychosis or delusional content. We discussed risks, benefits and alternative treatment options. We discussed trying sertraline for depression. May consider discontinuing trileptal and rexulti. Monitor ortho VS, may need to restart midodrine. Pt discussed with referral to Aj Carrillo. (1) Bipolar disorder with depression: Status: Acute Code(s): F31.9 - Bipolar disorder, unspecified (2) Cognitive impairment: Status: Acute Code(s): R41.89 - Other symptoms and signs involving cognitive functions and awareness Assessment and Plan: She completed MOCA on 12/17/2024 scored 14/30, difficulties with executive function and visuospatial (2/5), attention, language repetition (0/2)/fluency (0/1), recall (0/5). Her orientation is intact, as well as naming. Shows vascular pattern of cognitive impairment. ACL scored 5. PLAN 1. Admit to S1, CV, 15 minutes checks for safety 2. start sertraline 25mg po daily, plan to titrate. 3. dc trileptal unclear therapeutic use. may lower rexulti. 4. obtain collateral information 5. Aftercare planning. 06/27 increase sertraline to 75mg po daily. lower rexulti to 0.5mg po qhs. 06/28, 06/29: no change in plan today 06/30 continue tx. loose stools, added immodium. 07/01 continue tx. monitor loose stools as it can be related to sertraline. 07/02 continue tx. 07/03 continue tx. increase sertraline 100mg po daily. 07/04 continue tx. 07/05: continue current management and treatment plan. 07/06: continue current management and treatment plan. 07/07 reports improvement in mood. no si/hi. taking medications. somewhat forgetful at times. 07/08 continue tx. 07/09 continue tx. pending placement. 07/10 continue tx. 07/11 continue tx. 07/12: stable. continue current mgmt. 07/13: stable presentation. continue current mgmt. 07/14 continue tx. 07/15 continue tx. 07/16 continue tx. awaiting placement. 07/17 continue tx. 07/18 continue tx. 07/21 continue tx. 07/22 continue tx. 07/23 continue tx. 07/24 continue tx. 07/25 continue tx. 07/26 continue treatment plan 07/27 continue current treatment plan 07/28 same presentation; continue treatment plan 07/29/25: Patient observed visible in common areas, attended groups, no safety concersn. No behavior issues. Sleep and appetite are good. VSs stable, compliant with meds, no side effects. Continue with current tx plan. 07/30/25: Patient slept for 7 hours, no issues with appetite, ambulate using walker. Report pain on right leg and hip. Helped patient wearing ENRRIQUE socking after assessment. Visible, attended groups, social with peers and staff appropriately. No behavior issues. SW continue working on referral. Patient confirmed that she is not evicted. Per SW, eviction is in the process. 07/31/25: Meet with patient in bed, report she feels upset not toward anyone but regarding the news got from that patient was not accepted to any programs/placement that we referred patient out. Report she got the news from yesterday and it was very stressful day , report that she has no money, and get no help from family, except from her boyfriend who lives in the same building. Encourage patient to be out and attend unit activities to distract her self. Observed patient is out attend groups, had a visit with boyfriend. Over heard that patient was crying and tearful during visit. Per nursing, patient slept for 7 hours, got x1 loose stool. Continue to provide emotional support. 08/01/25: Patient is in better mood today, less emotion compared to yesterday as she was told that she was not accepted to a lot of places and potential have to return to her apartment. She is visible, attentive groups, social and appropriate. Mood is tired. Sad as one of the peers she gets along with is discharging to today. Denies other safety concerns. Ambulate using the walker. 08/02/25: Patient slept for 7 hours, compliant with medications, vital signs stable, denies side effects. Given tramadol for pain prior to meeting with this provider with good effect I do not feel anything when asked regarding the pain. Reports continued to feel tired which could be affected from the news that she got from treatment team a couple of days ago regarding placement. She appears to processes well. Later on observed visible in common areas, appropriate. 08/03/25: Patient spent most of the day in common areas, attended groups, went out for fresh air. Medication compliant, pain was not bad today so she received Tylenol with good effect. No safety concerns, ambulate using the walker Time Spent With Patient Time: Total time managing care of this patient today ____ minutes.
[2025-08-04 19:46] VITALS: BP 115/57; PULSE 75; RESP 16; TEMP 36.3; O2SAT 94
[2025-08-05 08:00] VITALS: BP 112/57; PULSE 82; RESP 16; TEMP 36.6; O2SAT 97
[2025-08-05 12:23] VITALS: BP 100/62
--- NOTE | 2025-08-05 16:00 | HO.PSYCHPN ---
Subjective Subjective Date of Service: 08/05/25 Reason For Visit: SI Subjective Notes: Conditional Voluntary Medical Problems Affecting Mental Status: No Interim History: Medical record and nursing notes reviewed; case discussed during rounds with team/nursing staff, and met with patient for supportive therapy/psychoeducation, as well as medication management. Per note: Aj Carrillo RN to come out to completed assessment this week likely within the next couple of days . Patient will discharge home likely later this week once assessment is complete and continue enrollment process for [facility] . Patient has not yet got assessment so far. Explained process again to patient as she appears to forgetful. Denies safety concerns, depression or anxiety. Report right leg pain that bothers her today. Explain the she needs to ask for PRN pain medication as it is not scheduled. Patient is receptive. Patient observed visible, attended groups and NURY. Medication Compliance: Yes Side effects from medications: No Attending Groups: Yes Review of Systems Acute medical concerns: No Medical Review of Systems: unchanged Review of Systems Review of Systems No SOB/N/V, no physical symptoms except right leg pain. Ambulating using walker. Yes all other systems are reviewed and are negative Mental Status Exam Mental Status Exam Narrative: Appearance: Appropriate casual attire, thin, in NAD Behavior: cooperative, anxious Psychomotor: no agitation or retardation noted, history of mild cogwheel on right arm. Speech: clear, normal rate/rhythm/volume, spontaneous TP: Goal oriented, anxious/worrying regarding placement which she has been declined from some facilities. TC: Dealing with impending eviction/homelessness Mood: nervous , denies depression. Affect: congruent SI:none HI: none VH/AH: no overt signs Delusions:none Insight/judgment: impaired x 2. memory/cog: alert, oriented x 4. MOCA back on 12/2024 scored 14/30, difficulties with executive function and visuospatial (2/5), attention, language repetition (0/2)/fluency (0/1), recall (0/5). Her orientation is intact, as well as naming. Showing vascular pattern of cognitive impairment. Diagnostics Vital Signs (24Hr): Vital Signs - 24 hr 08/04/25 16:36 08/04/25 19:46 08/05/25 08:00 Temperature 97.4 F 97.8 F Pulse Rate 75 82 Respiratory Rate 16 16 Blood Pressure 110/60 115/57 L 112/57 L Pulse Oximetry 94 97 Oxygen Delivery Method Room Air Room Air 08/05/25 12:23 Temperature Pulse Rate Respiratory Rate Blood Pressure 100/62 Pulse Oximetry Oxygen Delivery Method BMI result Body Mass Index 19.6 Labs 06/24/25 13:21 06/25/25 08:04 Medications Medications Current Medications Acetaminophen (Acetaminophen 325 Mg Tablet) 650 mg PO Q6H PRN PRN Reason: Headache/Pain, Scale 1-10 Last Admin: 08/03/25 08:29 Dose: 650 mg Al Hydroxide/Mg Hydroxide (Magnesium Hydrox/Alum Hydrox 30 Ml Oral.Susp) 30 ml PO Q6H PRN PRN Reason: Heartburn/Nausea Albuterol Sulfate (Albuterol Sulfate 90 Mcg 8 Gm Inhaler) 1 puff INHALE QID PRN PRN Reason: wheezing/SOB Brexpiprazole (Brexpiprazole 1 Mg Tablet) 0.5 mg PO BEDTIME [facility] Last Admin: 08/04/25 19:48 Dose: 0.5 mg Levothyroxine Sodium (Levothyroxine Sodium 50 Mcg Tablet) 50 mcg PO DAILY@0600 [facility] Last Admin: 08/05/25 05:00 Dose: 50 mcg Lidocaine (Lidocaine 4 % Patch Adh..Patch) 1 patch TRANSDERMA DAILY PRN PRN Reason: Pain Last Admin: 07/01/25 20:58 Dose: 1 patch Loperamide HCl (Loperamide Hcl 2 Mg Capsule) 2 mg PO Q4H PRN PRN Reason: loose stools Magnesium Hydroxide (Milk Of Magnesia 30 Ml Oral.Susp) 30 ml PO DAILY PRN PRN Reason: Constipation Midodrine (Midodrine Hcl 5 Mg Tablet) 5 mg PO TID@0900,1300,1700 [facility] Last Admin: 08/05/25 12:23 Dose: 5 mg Mirtazapine (Mirtazapine 15 Mg Tablet) 15 mg PO BEDTIME [facility] Last Admin: 08/04/25 19:48 Dose: 15 mg Sertraline HCl (Sertraline Hcl 100 Mg Tablet) 100 mg PO DAILY [facility] Last Admin: 08/05/25 08:26 Dose: 100 mg Tramadol HCl (Tramadol Hcl 50 Mg Tablet) 25 mg PO Q4H PRN PRN Reason: mod to severe pain Last Admin: 08/03/25 13:04 Dose: 25 mg Trazodone HCl (Trazodone Hcl 50 Mg Tablet) 50 mg PO BEDTIME PRN PRN Reason: Insomnia Allergies Allergies Allergy/AdvReac Type Severity Reaction Status Date / Time penicillin V Allergy Unknown Unknown Verified 06/24/25 12:34 Assessment & Plan Assessment & Plan (1) Bipolar disorder with depression: Status: Acute Code(s): F31.9 - Bipolar disorder, unspecified (2) Cognitive impairment: Status: Acute Code(s): R41.89 - Other symptoms and signs involving cognitive functions and awareness Plan Plan Ms. Chan is a 69 year-old woman hx of Bipolar (although do wander if it is more unipolar depression, hx of trauma and dysphoria). She was brought to [facility] by long time friend Carl due to increase anxious mood, feeling overwhelmed in context of impending eviction. She was here back in 12/2024 with similar presentation including increase anxious mood, feeling overwhelmed due to impending eviction. She is again noted to have difficulty remembering information including the fact that she had drops in BP and was discharged on midodrine, she does not remember this but continues to report feeling dizzy when standing up. She denies SI/HI. No psychosis or delusional content. We discussed risks, benefits and alternative treatment options. We discussed trying sertraline for depression. May consider discontinuing trileptal and rexulti. Monitor ortho VS, may need to restart midodrine. Pt discussed with SW referral to Aj Carrillo. (1) Bipolar disorder with depression: Status: Acute Code(s): F31.9 - Bipolar disorder, unspecified (2) Cognitive impairment: Status: Acute Code(s): R41.89 - Other symptoms and signs involving cognitive functions and awareness Assessment and Plan: She completed MOCA on 12/17/2024 scored 14/30, difficulties with executive function and visuospatial (2/5), attention, language repetition (0/2)/fluency (0/1), recall (0/5). Her orientation is intact, as well as naming. Shows vascular pattern of cognitive impairment. ACL scored 5. PLAN 1. Admit to S1, CV, 15 minutes checks for safety 2. start sertraline 25mg po daily, plan to titrate. 3. dc trileptal unclear therapeutic use. may lower rexulti. 4. obtain collateral information 5. Aftercare planning. 06/27 increase sertraline to 75mg po daily. lower rexulti to 0.5mg po qhs. 06/28, 06/29: no change in plan today 06/30 continue tx. loose stools, added immodium. 07/01 continue tx. monitor loose stools as it can be related to sertraline. 07/02 continue tx. 07/03 continue tx. increase sertraline 100mg po daily. 07/04 continue tx. 07/05: continue current management and treatment plan. 07/06: continue current management and treatment plan. 07/07 reports improvement in mood. no si/hi. taking medications. somewhat forgetful at times. 07/08 continue tx. 07/09 continue tx. pending placement. 07/10 continue tx. 07/11 continue tx. 07/12: stable. continue current mgmt. 07/13: stable presentation. continue current mgmt. 07/14 continue tx. 07/15 continue tx. 07/16 continue tx. awaiting placement. 07/17 continue tx. 07/18 continue tx. 07/21 continue tx. 07/22 continue tx. 07/23 continue tx. 07/24 continue tx. 07/25 continue tx. 07/26 continue treatment plan 07/27 continue current treatment plan 07/28 same presentation; continue treatment plan 07/29/25: Patient observed visible in common areas, attended groups, no safety concersn. No behavior issues. Sleep and appetite are good. VSs stable, compliant with meds, no side effects. Continue with current tx plan. 07/30/25: Patient slept for 7 hours, no issues with appetite, ambulate using walker. Report pain on right leg and hip. Helped patient wearing ENRRIQUE socking after assessment. Visible, attended groups, social with peers and staff appropriately. No behavior issues. SW continue working on referral. Patient confirmed that she is not evicted. Per RODNEY, eviction is in the process. 07/31/25: Meet with patient in bed, report she feels upset not toward anyone but regarding the news got from that patient was not accepted to any programs/placement that we referred patient out. Report she got the news from yesterday and it was very stressful day , report that she has no money, and get no help from family, except from her boyfriend who lives in the same building. Encourage patient to be out and attend unit activities to distract her self. Observed patient is out attend groups, had a visit with boyfriend. Over heard that patient was crying and tearful during visit. Per nursing, patient slept for 7 hours, got x1 loose stool. Continue to provide emotional support. 08/01/25: Patient is in better mood today, less emotion compared to yesterday as she was told that she was not accepted to a lot of places and potential have to return to her apartment. She is visible, attentive groups, social and appropriate. Mood is tired. Sad as one of the peers she gets along with is discharging to today. Denies other safety concerns. Ambulate using the walker. 08/02/25: Patient slept for 7 hours, compliant with medications, vital signs stable, denies side effects. Given tramadol for pain prior to meeting with this provider with good effect I do not feel anything when asked regarding the pain. Reports continued to feel tired which could be affected from the news that she got from treatment team a couple of days ago regarding placement. She appears to processes well. Later on observed visible in common areas, appropriate. 08/03/25: Patient spent most of the day in common areas, attended groups, went out for fresh air. Medication compliant, pain was not bad today so she received Tylenol with good effect. No safety concerns, ambulate using the walker 08/04/25: Per SW note Patient was less anxious over weekend. Aj Carrillo RN to come out to completed assessment this week likely within the next couple of days . Patient will discharge home likely later this week once assessment is complete and continue enrollment process for [facility] Patient is consistent with report during encounter with this provider. Visible, quiet, soical appropriately, using walker for ambulating, no fall. Report nervous regarding aftercare plan but denies depression. Report right leg pain is bothering her but has not yet asked for PRN tylenol or tramadol at the assessment time. Encourage to do so. Patient slept through the night, compliant with meds and denies side effects. 08/05/25: Per SW note: Aj Carrillo RN to come out to completed assessment this week likely within the next couple of days . Patient will discharge home likely later this week once assessment is complete and continue enrollment process for [facility] . Patient has not yet got assessment so far. Explained process again to patient as she appears to forgetful. Denies safety concerns, depression or anxiety. Report right leg pain that bothers her today. Explain the she needs to ask for PRN pain medication as it is not scheduled. Patient is receptive. Patient observed visible, attended groups and NURY. Patient educated on: medication risk/benefits and therapeutic strategies Informed Consent: understands and further education needed Reason for continued inpatient stay Substantial Risk for: med/psych decompensation Time Spent With Patient Time: Total time managing care of this patient today ____ minutes.
[2025-08-05 16:26] VITALS: BP 106/62
[2025-08-05 19:54] VITALS: BP 124/58; PULSE 81; RESP 16; TEMP 36.5; O2SAT 97
[2025-08-06 08:00] VITALS: BP 108/59; PULSE 82; RESP 18; TEMP 36.4; O2SAT 95
--- NOTE | 2025-08-06 11:23 | P.PNPSI_ITS ---
Subjective Subjective Date of Service: 08/06/25 Reason For Visit: SI Subjective Notes: Conditional Voluntary Medical Problems Affecting Mental Status: No Interim History: Patient found sitting in the day room after having her lunch. She states that she feels ?good. She notes that she slept well last night. She denies anxiety or depression. She denies SI/HI/AVH. Medication Compliance: Yes Side effects from medications: No Attending Groups: Intermittent Review of Systems Acute medical concerns: No Mental Status Exam Mental Status Exam Narrative: Appearance: Appropriate casual attire, thin, in NAD Behavior: cooperative, anxious Psychomotor: no agitation or retardation noted, history of mild cogwheel on right arm. Speech: clear, normal rate/rhythm/volume, spontaneous TP: Goal oriented TC: Dealing with impending eviction/homelessness Mood: Good Affect: congruent SI:Denies HI: Denies VH/AH: Denies Delusions:none Insight/judgment: impaired x 2. memory/cog: alert, oriented x 4. MOCA back on 12/2024 scored 14/30, difficulties with executive function and visuospatial (2/5), attention, language repetition (0/2)/fluency (0/1), recall (0/5). Her orientation is intact, as well as naming. Showing vascular pattern of cognitive impairment. Diagnostics Vital Signs (24Hr): Vital Signs - 24 hr 08/05/25 12:23 08/05/25 16:26 08/05/25 19:54 Temperature 97.7 F Pulse Rate 81 Respiratory Rate 16 Blood Pressure 100/62 106/62 124/58 L Pulse Oximetry 97 Oxygen Delivery Method Room Air 08/06/25 08:00 Temperature 97.5 F Pulse Rate 82 Respiratory Rate 18 Blood Pressure 108/59 L Pulse Oximetry 95 Oxygen Delivery Method Room Air BMI result Body Mass Index 19.6 Labs 06/24/25 13:21 06/25/25 08:04 Medications Medications Current Medications Acetaminophen (Acetaminophen 325 Mg Tablet) 650 mg PO Q6H PRN PRN Reason: Headache/Pain, Scale 1-10 Last Admin: 08/03/25 08:29 Dose: 650 mg Al Hydroxide/Mg Hydroxide (Magnesium Hydrox/Alum Hydrox 30 Ml Oral.Susp) 30 ml PO Q6H PRN PRN Reason: Heartburn/Nausea Albuterol Sulfate (Albuterol Sulfate 90 Mcg 8 Gm Inhaler) 1 puff INHALE QID PRN PRN Reason: wheezing/SOB Brexpiprazole (Brexpiprazole 1 Mg Tablet) 0.5 mg PO BEDTIME [facility] Last Admin: 08/05/25 19:53 Dose: 0.5 mg Levothyroxine Sodium (Levothyroxine Sodium 50 Mcg Tablet) 50 mcg PO DAILY@0600 [facility] Last Admin: 08/06/25 06:43 Dose: 50 mcg Lidocaine (Lidocaine 4 % Patch Adh..Patch) 1 patch TRANSDERMA DAILY PRN PRN Reason: Pain Last Admin: 07/01/25 20:58 Dose: 1 patch Loperamide HCl (Loperamide Hcl 2 Mg Capsule) 2 mg PO Q4H PRN PRN Reason: loose stools Loperamide HCl (Loperamide Hcl 2 Mg Capsule) 2 mg PO Q4H PRN PRN Reason: Loose Stool Magnesium Hydroxide (Milk Of Magnesia 30 Ml Oral.Susp) 30 ml PO DAILY PRN PRN Reason: Constipation Midodrine (Midodrine Hcl 5 Mg Tablet) 5 mg PO TID@0900,1300,1700 [facility] Last Admin: 08/06/25 08:45 Dose: 5 mg Mirtazapine (Mirtazapine 15 Mg Tablet) 15 mg PO BEDTIME [facility] Last Admin: 08/05/25 19:53 Dose: 15 mg Sertraline HCl (Sertraline Hcl 100 Mg Tablet) 100 mg PO DAILY [facility] Last Admin: 08/06/25 08:45 Dose: 100 mg Tramadol HCl (Tramadol Hcl 50 Mg Tablet) 25 mg PO Q4H PRN PRN Reason: mod to severe pain Last Admin: 08/03/25 13:04 Dose: 25 mg Trazodone HCl (Trazodone Hcl 50 Mg Tablet) 50 mg PO BEDTIME PRN PRN Reason: Insomnia Allergies Allergies Allergy/AdvReac Type Severity Reaction Status Date / Time penicillin V Allergy Unknown Unknown Verified 06/24/25 12:34 Assessment & Plan Assessment & Plan (1) Bipolar disorder with depression: Status: Acute Code(s): F31.9 - Bipolar disorder, unspecified (2) Cognitive impairment: Status: Acute Code(s): R41.89 - Other symptoms and signs involving cognitive functions and awareness Plan Plan Ms. Chan is a 69 year-old woman hx of Bipolar (although do wander if it is more unipolar depression, hx of trauma and dysphoria). She was brought to [facility] ED by long time friend Carl due to increase anxious mood, feeling overwhelmed in context of impending eviction. She was here back in 12/2024 with similar presentation including increase anxious mood, feeling overwhelmed due to impending eviction. She is again noted to have difficulty remembering information including the fact that she had drops in BP and was discharged on midodrine, she does not remember this but continues to report feeling dizzy when standing up. She denies SI/HI. No psychosis or delusional content. We discussed risks, benefits and alternative treatment options. We discussed trying sertraline for depression. May consider discontinuing trileptal and rexulti. Monitor ortho VS, may need to restart midodrine. Pt discussed with SW referral to Aj Carrillo. (1) Bipolar disorder with depression: Status: Acute Code(s): F31.9 - Bipolar disorder, unspecified (2) Cognitive impairment: Status: Acute Code(s): R41.89 - Other symptoms and signs involving cognitive functions and awareness Assessment and Plan: She completed MOCA on 12/17/2024 scored 14/30, difficulties with executive function and visuospatial (2/5), attention, language repetition (0/2)/fluency (0/1), recall (0/5). Her orientation is intact, as well as naming. Shows vascular pattern of cognitive impairment. ACL scored 5. PLAN 1. Admit to S1, CV, 15 minutes checks for safety 2. start sertraline 25mg po daily, plan to titrate. 3. dc trileptal unclear therapeutic use. may lower rexulti. 4. obtain collateral information 5. Aftercare planning. 06/27 increase sertraline to 75mg po daily. lower rexulti to 0.5mg po qhs. 06/28, 06/29: no change in plan today 06/30 continue tx. loose stools, added immodium. 07/01 continue tx. monitor loose stools as it can be related to sertraline. 07/02 continue tx. 07/03 continue tx. increase sertraline 100mg po daily. 07/04 continue tx. 07/05: continue current management and treatment plan. 07/06: continue current management and treatment plan. 07/07 reports improvement in mood. no si/hi. taking medications. somewhat forgetful at times. 07/08 continue tx. 07/09 continue tx. pending placement. 07/10 continue tx. 07/11 continue tx. 07/12: stable. continue current mgmt. 07/13: stable presentation. continue current mgmt. 07/14 continue tx. 07/15 continue tx. 07/16 continue tx. awaiting placement. 07/17 continue tx. 07/18 continue tx. 07/21 continue tx. 07/22 continue tx. 07/23 continue tx. 07/24 continue tx. 07/25 continue tx. 07/26 continue treatment plan 07/27 continue current treatment plan 07/28 same presentation; continue treatment plan 07/29/25: Patient observed visible in common areas, attended groups, no safety concersn. No behavior issues. Sleep and appetite are good. VSs stable, compliant with meds, no side effects. Continue with current tx plan. 07/30/25: Patient slept for 7 hours, no issues with appetite, ambulate using walker. Report pain on right leg and hip. Helped patient wearing ENRRIQUE socking after assessment. Visible, attended groups, social with peers and staff appropriately. No behavior issues. SW continue working on referral. Patient confirmed that she is not evicted. Per SW, eviction is in the process. 07/31/25: Meet with patient in bed, report she feels upset not toward anyone but regarding the news got from that patient was not accepted to any programs/placement that we referred patient out. Report she got the news from yesterday and it was very stressful day , report that she has no money, and get no help from family, except from her boyfriend who lives in the same building. Encourage patient to be out and attend unit activities to distract her self. Observed patient is out attend groups, had a visit with boyfriend. Over heard that patient was crying and tearful during visit. Per nursing, patient slept for 7 hours, got x1 loose stool. Continue to provide emotional support. 08/01/25: Patient is in better mood today, less emotion compared to yesterday as she was told that she was not accepted to a lot of places and potential have to return to her apartment. She is visible, attentive groups, social and appropriate. Mood is tired. Sad as one of the peers she gets along with is discharging to today. Denies other safety concerns. Ambulate using the walker. 08/02/25: Patient slept for 7 hours, compliant with medications, vital signs stable, denies side effects. Given tramadol for pain prior to meeting with this provider with good effect I do not feel anything when asked regarding the pain. Reports continued to feel tired which could be affected from the news that she got from treatment team a couple of days ago regarding placement. She appears to processes well. Later on observed visible in common areas, appropriate. 08/03/25: Patient spent most of the day in common areas, attended groups, went out for fresh air. Medication compliant, pain was not bad today so she received Tylenol with good effect. No safety concerns, ambulate using the walker 08/04/25: Per SW note Patient was less anxious over weekend. Aj Carrillo RN to come out to completed assessment this week likely within the next couple of days . Patient will discharge home likely later this week once assessment is complete and continue enrollment process for [facility] Patient is consistent with report during encounter with this provider. Visible, quiet, soical appropriately, using walker for ambulating, no fall. Report nervous regarding aftercare plan but denies depression. Report right leg pain is bothering her but has not yet asked for PRN tylenol or tramadol at the assessment time. Encourage to do so. Patient slept through the night, compliant with meds and denies side effects. 08/05/25: Per SW note: Aj Carrillo RN to come out to completed assessment this week likely within the next couple of days . Patient will discharge home likely later this week once assessment is complete and continue enrollment process for [facility] . Patient has not yet got assessment so far. Explained process again to patient as she appears to forgetful. Denies safety concerns, depression or anxiety. Report right leg pain that bothers her today. Explain the she needs to ask for PRN pain medication as it is not scheduled. Patient is receptive. Patient observed visible, attended groups and NURY. 08/06: Continue current treatment regimen. She will have nursing assessment from Aj Aleman today at 1300. Plan to discharge home with services from [place]. Patient educated on: therapeutic strategies Reason for continued inpatient stay Substantial Risk for: rapid decompensation Time Spent With Patient Time: Total time managing care of this patient today ____ minutes.
[2025-08-06 13:41] VITALS: BP 106/59
[2025-08-06 17:27] VITALS: BP 120/59
[2025-08-06 19:39] VITALS: BP 133/62; PULSE 70; RESP 16; TEMP 36.6; O2SAT 97
[2025-08-07 07:00] VITALS: BMI 20.2
[2025-08-07 08:57] VITALS: BP 91/50; PULSE 71; RESP 16; TEMP 36.8; O2SAT 95
[2025-08-07 13:22] VITALS: BP 109/64
--- NOTE | 2025-08-07 14:28 | P.PNPSI_ITS ---
Subjective Subjective Date of Service: 08/07/25 Reason For Visit: SI Subjective Notes: Conditional Voluntary Interim History: Patient is found lying in her bed. She feels ?okay? today. She is moderately anxious. No depression. She denies SI/HI/AH/VH. Reports bilateral upper and lower extremity pain. No behavioral disturbance. Medication Compliance: Yes Side effects from medications: No Attending Groups: Intermittent Review of Systems Acute medical concerns: No Mental Status Exam Mental Status Exam Narrative: Appearance: Appropriate casual attire, frail in NAD Behavior: cooperative, anxious Psychomotor: no agitation or retardation noted, history of mild cogwheel on right arm. Speech: clear, normal rate/rhythm/volume, spontaneous TP: Goal oriented TC: Dealing with impending eviction/homelessness Mood: Okay Affect: Mood congruent SI:Denies HI: Denies VH/AH: Denies Delusions:none Insight/judgment: impaired x 2. memory/cog: alert, oriented x 4. MOCA back on 12/2024 scored 14/30, difficulties with executive function and visuospatial (2/5), attention, language repetition (0/2)/fluency (0/1), recall (0/5). Her orientation is intact, as well as naming. Showing vascular pattern of cognitive impairment. Diagnostics Vital Signs (24Hr): Vital Signs - 24 hr 08/06/25 17:27 08/06/25 19:39 08/07/25 08:57 Temperature 98 F 98.2 F Pulse Rate 70 71 Respiratory Rate 16 16 Blood Pressure 120/59 L 133/62 91/50 L Pulse Oximetry 97 95 Oxygen Delivery Method Room Air Room Air 08/07/25 13:22 Temperature Pulse Rate Respiratory Rate Blood Pressure 109/64 Pulse Oximetry Oxygen Delivery Method BMI result Body Mass Index 19.6 Labs 06/24/25 13:21 06/25/25 08:04 Medications Medications Current Medications Acetaminophen (Acetaminophen 325 Mg Tablet) 650 mg PO Q6H PRN PRN Reason: Headache/Pain, Scale 1-10 Last Admin: 08/03/25 08:29 Dose: 650 mg Al Hydroxide/Mg Hydroxide (Magnesium Hydrox/Alum Hydrox 30 Ml Oral.Susp) 30 ml PO Q6H PRN PRN Reason: Heartburn/Nausea Albuterol Sulfate (Albuterol Sulfate 90 Mcg 8 Gm Inhaler) 1 puff INHALE QID PRN PRN Reason: wheezing/SOB Brexpiprazole (Brexpiprazole 1 Mg Tablet) 0.5 mg PO BEDTIME COUNTS [facility]CLUDE 234 BEDS AT [facility] Last Admin: 08/06/25 20:13 Dose: 0.5 mg Levothyroxine Sodium (Levothyroxine Sodium 50 Mcg Tablet) 50 mcg PO DAILY@0600 COUNTS INCLUDE 234 BEDS AT [facility] Last Admin: 08/07/25 05:57 Dose: 50 mcg Lidocaine (Lidocaine 4 % Patch Adh..Patch) 1 patch TRANSDERMA DAILY PRN PRN Reason: Pain Last Admin: 07/01/25 20:58 Dose: 1 patch Loperamide HCl (Loperamide Hcl 2 Mg Capsule) 2 mg PO Q4H PRN PRN Reason: loose stools Last Admin: 08/06/25 13:06 Dose: 2 mg Loperamide HCl (Loperamide Hcl 2 Mg Capsule) 2 mg PO Q4H PRN PRN Reason: Loose Stool Magnesium Hydroxide (Milk Of Magnesia 30 Ml Oral.Susp) 30 ml PO DAILY PRN PRN Reason: Constipation Midodrine (Midodrine Hcl 5 Mg Tablet) 5 mg PO TID@0900,1300,1700 COUNTS INCLUDE 234 BEDS AT THE [facility] Last Admin: 08/07/25 13:13 Dose: 5 mg Mirtazapine (Mirtazapine 15 Mg Tablet) 15 mg PO BEDTIME COUNTS INCLUDE 234 BEDS AT THE [facility] Last Admin: 08/06/25 20:13 Dose: 15 mg Sertraline HCl (Sertraline Hcl 100 Mg Tablet) 100 mg PO DAILY COUNTS INCLUDE 234 BEDS AT THE [facility] Last Admin: 08/07/25 09:06 Dose: 100 mg Tramadol HCl (Tramadol Hcl 50 Mg Tablet) 25 mg PO Q4H PRN PRN Reason: mod to severe pain Last Admin: 08/07/25 09:06 Dose: 25 mg Trazodone HCl (Trazodone Hcl 50 Mg Tablet) 50 mg PO BEDTIME PRN PRN Reason: Insomnia Allergies Allergies Allergy/AdvReac Type Severity Reaction Status Date / Time penicillin V Allergy Unknown Unknown Verified 06/24/25 12:34 Assessment & Plan Assessment & Plan (1) Bipolar disorder with depression: Status: Acute Code(s): F31.9 - Bipolar disorder, unspecified (2) Cognitive impairment: Status: Acute Code(s): R41.89 - Other symptoms and signs involving cognitive functions and awareness Plan Plan Ms. Chan is a 69 year-old woman hx of Bipolar (although do wander if it is more unipolar depression, hx of trauma and dysphoria). She was brought to [facility] by long time friend Carl due to increase anxious mood, feeling overwhelmed in context of impending eviction. She was here back in 12/2024 with similar presentation including increase anxious mood, feeling overwhelmed due to impending eviction. She is again noted to have difficulty remembering information including the fact that she had drops in BP and was discharged on midodrine, she does not remember this but continues to report feeling dizzy when standing up. She denies SI/HI. No psychosis or delusional content. We discussed risks, benefits and alternative treatment options. We discussed trying sertraline for depression. May consider discontinuing trileptal and rexulti. Monitor ortho VS, may need to restart midodrine. Pt discussed with SW referral to Aj Carrillo. (1) Bipolar disorder with depression: Status: Acute Code(s): F31.9 - Bipolar disorder, unspecified (2) Cognitive impairment: Status: Acute Code(s): R41.89 - Other symptoms and signs involving cognitive functions and awareness Assessment and Plan: She completed MOCA on 12/17/2024 scored 14/30, difficulties with executive function and visuospatial (2/5), attention, language repetition (0/2)/fluency (0/1), recall (0/5). Her orientation is intact, as well as naming. Shows vascular pattern of cognitive impairment. ACL scored 5. PLAN 1. Admit to S1, CV, 15 minutes checks for safety 2. start sertraline 25mg po daily, plan to titrate. 3. dc trileptal unclear therapeutic use. may lower rexulti. 4. obtain collateral information 5. Aftercare planning. 06/27 increase sertraline to 75mg po daily. lower rexulti to 0.5mg po qhs. 06/28, 06/29: no change in plan today 06/30 continue tx. loose stools, added immodium. 07/01 continue tx. monitor loose stools as it can be related to sertraline. 07/02 continue tx. 07/03 continue tx. increase sertraline 100mg po daily. 07/04 continue tx. 07/05: continue current management and treatment plan. 07/06: continue current management and treatment plan. 07/07 reports improvement in mood. no si/hi. taking medications. somewhat forgetful at times. 07/08 continue tx. 07/09 continue tx. pending placement. 07/10 continue tx. 07/11 continue tx. 07/12: stable. continue current mgmt. 07/13: stable presentation. continue current mgmt. 07/14 continue tx. 07/15 continue tx. 07/16 continue tx. awaiting placement. 07/17 continue tx. 07/18 continue tx. 07/21 continue tx. 07/22 continue tx. 07/23 continue tx. 07/24 continue tx. 07/25 continue tx. 07/26 continue treatment plan 07/27 continue current treatment plan 07/28 same presentation; continue treatment plan 07/29/25: Patient observed visible in common areas, attended groups, no safety concersn. No behavior issues. Sleep and appetite are good. VSs stable, compliant with meds, no side effects. Continue with current tx plan. 07/30/25: Patient slept for 7 hours, no issues with appetite, ambulate using walker. Report pain on right leg and hip. Helped patient wearing ENRRIQUE socking after assessment. Visible, attended groups, social with peers and staff appropriately. No behavior issues. SW continue working on referral. Patient confirmed that she is not evicted. Per SW, eviction is in the process. 07/31/25: Meet with patient in bed, report she feels upset not toward anyone but regarding the news got from that patient was not accepted to any programs/placement that we referred patient out. Report she got the news from yesterday and it was very stressful day , report that she has no money, and get no help from family, except from her boyfriend who lives in the same building. Encourage patient to be out and attend unit activities to distract her self. Observed patient is out attend groups, had a visit with boyfriend. Over heard that patient was crying and tearful during visit. Per nursing, patient slept for 7 hours, got x1 loose stool. Continue to provide emotional support. 08/01/25: Patient is in better mood today, less emotion compared to yesterday as she was told that she was not accepted to a lot of places and potential have to return to her apartment. She is visible, attentive groups, social and appropriate. Mood is tired. Sad as one of the peers she gets along with is discharging to today. Denies other safety concerns. Ambulate using the walker. 08/02/25: Patient slept for 7 hours, compliant with medications, vital signs stable, denies side effects. Given tramadol for pain prior to meeting with this provider with good effect I do not feel anything when asked regarding the pain. Reports continued to feel tired which could be affected from the news that she got from treatment team a couple of days ago regarding placement. She appears to processes well. Later on observed visible in common areas, appropriate. 08/03/25: Patient spent most of the day in common areas, attended groups, went out for fresh air. Medication compliant, pain was not bad today so she received Tylenol with good effect. No safety concerns, ambulate using the walker 08/04/25: Per SW note Patient was less anxious over weekend. Aj Carrillo RN to come out to completed assessment this week likely within the next couple of days . Patient will discharge home likely later this week once assessment is complete and continue enrollment process for [facility] Patient is consistent with report during encounter with this provider. Visible, quiet, soical appropriately, using walker for ambulating, no fall. Report nervous regarding aftercare plan but denies depression. Report right leg pain is bothering her but has not yet asked for PRN tylenol or tramadol at the assessment time. Encourage to do so. Patient slept through the night, compliant with meds and denies side effects. 08/05/25: Per note: Aj Carrillo RN to come out to completed assessment this week likely within the next couple of days . Patient will discharge home likely later this week once assessment is complete and continue enrollment process for [facility] . Patient has not yet got assessment so far. Explained process again to patient as she appears to forgetful. Denies safety concerns, depression or anxiety. Report right leg pain that bothers her today. Explain the she needs to ask for PRN pain medication as it is not scheduled. Patient is receptive. Patient observed visible, attended groups and NURY. 08/06: Continue current treatment regimen. She will have nursing assessment from Aj Aleman today at 1300. Plan to discharge home with services from [facility]. 08/07: Hydroxyzine 25 mg twice daily as needed for anxiety ordered; advised to take as prescribed. Instructed on the risks, benefits, and potential adverse reactions of the medication. Continue current treatment regimen. Per SW, [facility] has accepted the patient pending bed availability. However, she will be discharged home tomorrow 08/08/2025 and will proceed to [facility] once a bed becomes available. Patient educated on: therapeutic strategies Reason for continued inpatient stay Substantial Risk for: rapid decompensation Time Spent With Patient Time: Total time managing care of this patient today ____ minutes.
[2025-08-07 16:44] VITALS: BP 123/68
--- NOTE | 2025-08-07 18:44 | PM.PSYDC ---
DS: Providers Provider Date of Service: 08/07/25 Date of admission: 06/24/25 17:00 Date of discharge: 08/08/25 Primary care physician: Laura Chapa MD Admitting clinician: Tayolr Burkett Attending physician on admission: Ozzie Luis Attending physician on discharge: Ozzie Luis Discharging clinician: Miguel Ángel Pollock DS: Diagnosis Discharge Diagnosis (1) Bipolar disorder with depression: Status: Acute (2) Cognitive impairment: Status: Acute DS: Medications Discharge Medications Home Medications: Previous Rx's ?Medication ?Instructions ?Recorded acetaminophen 650 mg 650 mg PO Q8H PRN Pain #90 tabs 08/07/25 tablet,extended release albuterol sulfate 90 mcg/actuation 1 inh inhalation QID PRN 08/07/25 aerosol inhaler wheezing/SOB #6.7 grams brexpiprazole 1 mg tablet (Rexulti) 0.5 mg (1/2 x 1 mg) PO BEDTIME #30 08/07/25 tabs hydroxyzine HCl 25 mg tablet 25 mg PO BID PRN Anxiety #60 tabs 08/07/25 levothyroxine 50 mcg tablet 50 mcg PO DAILY@0600 #30 tabs 08/07/25 lidocaine 5 % topical patch 1 patch topical DAILY PRN Pain #30 08/07/25 ea midodrine 5 mg tablet 5 mg PO TID@0900,1300,1700 #90 tabs 08/07/25 mirtazapine 15 mg tablet 15 mg PO BEDTIME #30 tabs 08/07/25 oxcarbazepine 150 mg tablet 150 mg PO BID #60 tabs 08/07/25 sertraline 100 mg tablet 100 mg PO DAILY #30 tabs 08/07/25 tramadol 50 mg tablet 25 mg (1/2 x 50 mg) PO Q4H PRN mod 08/07/25 to severe pain #14 tabs Mental Status Exam Mental Status Exam Narrative: Appearance: Appropriate casual attire, frail, in NAD Behavior: cooperative, anxious Psychomotor: no agitation or retardation noted, history of mild cogwheel on right arm. Speech: clear, normal rate/rhythm/volume, spontaneous TP: Goal oriented TC: Dealing with impending eviction/homelessness Mood: Okay Affect: Mood congruent SI:Denies HI: Denies VH/AH: Denies Delusions:none Insight/judgment: impaired x 2. memory/cog: alert, oriented x 4. MOCA back on 12/2024 scored 14/30, difficulties with executive function and visuospatial (2/5), attention, language repetition (0/2)/fluency (0/1), recall (0/5). Her orientation is intact, as well as naming. Showing vascular pattern of cognitive impairment. DS: Summary Hospital Course Hospital Course: HPI: Ms. Chan is a 69 year-old woman hx of Bipolar (although do wander if it is more unipolar depression, hx of trauma and dysphoria). She was brought to [facility] by long time friend Carl due to increase anxious mood, feeling overwhelmed in context of impending eviction. She was here back in 12/2024 with similar presentation including increase anxious mood, feeling overwhelmed due to impending eviction. She is again noted to have difficulty remembering information including the fact that she had drops in BP and was discharged on midodrine, she does not remember this but continues to report feeling dizzy when standing up. She denies SI/HI. No psychosis or delusional content. We discussed risks, benefits and alternative treatment options. We discussed trying sertraline for depression. May consider discontinuing trileptal and rexulti. Monitor ortho VS, may need to restart midodrine. Pt discussed with referral to [facility]. Plan: 06/27 increase sertraline to 75mg po daily. lower rexulti to 0.5mg po qhs. 06/28, 06/29: no change in plan today 06/30 continue tx. loose stools, added immodium. 07/01 continue tx. monitor loose stools as it can be related to sertraline. 07/02 continue tx. 07/03 continue tx. increase sertraline 100mg po daily. 07/04 continue tx. 07/05: continue current management and treatment plan. 07/06: continue current management and treatment plan. 07/07 reports improvement in mood. no si/hi. taking medications. somewhat forgetful at times. 07/08 continue tx. 07/09 continue tx. pending placement. 07/10 continue tx. 07/11 continue tx. 07/12: stable. continue current mgmt. 07/13: stable presentation. continue current mgmt. 07/14 continue tx. 07/15 continue tx. 07/16 continue tx. awaiting placement. 07/17 continue tx. 07/18 continue tx. 07/19/25: Meet with patient out out on the porch while patient has some NURY. Very pleasant and cooperative. Reports she does not know the discharge plan yet but she has own apartment and that her BF lives in the same building. No SI/SIB/HI/AVH expressed, no negative emotions. Continue with current plan. 07/20/25: No issue with sleep or appetite, compliant with meds, visible and attended groups as well as fresh air. Reports pain on thigh - muscular pain. Denies anxiety but reports depression is a 12/23. Patient ambulate using a walker. Blood pressure within normal limit. No behavior issues. 07/21 continue tx. 07/22 continue tx. 07/23 continue tx. 07/24 continue tx. 07/25 continue tx. 07/26 continue treatment plan 07/27 continue current treatment plan 07/28 same presentation; continue treatment plan 07/29/25: Patient observed visible in common areas, attended groups, no safety concersn. No behavior issues. Sleep and appetite are good. VSs stable, compliant with meds, no side effects. Continue with current tx plan. 07/30/25: Patient slept for 7 hours, no issues with appetite, ambulate using walker. Report pain on right leg and hip. Helped patient wearing ENRRIQUE socking after assessment. Visible, attended groups, social with peers and staff appropriately. No behavior issues. SW continue working on referral. Patient confirmed that she is not evicted. Per , eviction is in the process. 07/31/25: Meet with patient in bed, report she feels upset not toward anyone but regarding the news got from SW that patient was not accepted to any programs/placement that we referred patient out. Report she got the news from yesterday and it was very stressful day , report that she has no money, and get no help from family, except from her boyfriend who lives in the same building. Encourage patient to be out and attend unit activities to distract her self. Observed patient is out attend groups, had a visit with boyfriend. Over heard that patient was crying and tearful during visit. Per nursing, patient slept for 7 hours, got x1 loose stool. Continue to provide emotional support. 08/01/25: Patient is in better mood today, less emotion compared to yesterday as she was told that she was not accepted to a lot of places and potential have to return to her apartment. She is visible, attentive groups, social and appropriate. Mood is tired. Sad as one of the peers she gets along with is discharging to today. Denies other safety concerns. Ambulate using the walker. 08/02/25: Patient slept for 7 hours, compliant with medications, vital signs stable, denies side effects. Given tramadol for pain prior to meeting with this provider with good effect I do not feel anything when asked regarding the pain. Reports continued to feel tired which could be affected from the news that she got from treatment team a couple of days ago regarding placement. She appears to processes well. Later on observed visible in common areas, appropriate. 08/03/25: Patient spent most of the day in common areas, attended groups, went out for fresh air. Medication compliant, pain was not bad today so she received Tylenol with good effect. No safety concerns, ambulate using the walker 08/04/25: Per SW note Patient was less anxious over weekend. Aj Carrillo RN to come out to completed assessment this week likely within the next couple of days . Patient will discharge home likely later this week once assessment is complete and continue enrollment process for [facility] Patient is consistent with report during encounter with this provider. Visible, quiet, soical appropriately, using walker for ambulating, no fall. Report nervous regarding aftercare plan but denies depression. Report right leg pain is bothering her but has not yet asked for PRN tylenol or tramadol at the assessment time. Encourage to do so. Patient slept through the night, compliant with meds and denies side effects. 08/05/25: Per SW note: Aj Carrillo RN to come out to completed assessment this week likely within the next couple of days . Patient will discharge home likely later this week once assessment is complete and continue enrollment process for [facility] . Patient has not yet got assessment so far. Explained process again to patient as she appears to forgetful. Denies safety concerns, depression or anxiety. Report right leg pain that bothers her today. Explain the she needs to ask for PRN pain medication as it is not scheduled. Patient is receptive. Patient observed visible, attended groups and NURY. 08/06: Continue current treatment regimen. She will have nursing assessment from [facility] today at 1300. Plan to discharge home with services from [facility]. 08/07: Hydroxyzine 25 mg twice daily as needed for anxiety ordered; advised to take as prescribed. Instructed on the risks, benefits, and potential adverse reactions of the medication. Continue current treatment regimen. Per , [facility] has accepted the patient pending bed availability. However, she will be discharged home tomorrow 08/08/2025 and will proceed to [facility] was bed becomes available. Status at Discharge Functional status at discharge: independent ambulation Overall status at discharge: patient is back to baseline Time Spent with Patient Time attestation: Total time managing care of this patient today _30___ minutes. Time spent: Less than 30 minutes Discharge Plan Discharge Anticipated Discharge Date/Time: 08/08/25 11:30 Patient Disposition: Home, Self-Care Discharge Diagnosis: Bipolar disorder with depression, cognitive impairment, hypothyroidism Referrals: Kelli Dunn [facility] [Other] - 09/02/25 11:00 am Referral Note: Your next appointment is scheduled with your psychiatry provider michell Pereira on 09/02/2025 11:00. [facility] [Other] - 1 Week Referral Note: You are in process of enrolling in [facility] program. [facility] will schedule nusing assessment in your home once all financial paperwork is received. [facility] [Other] - 1 Month Referral Note: You have been accepted for residency at [facility]. Once shared occupancy apartment is available Lalit Maynard will contact you for move in process. Estimated timeframe for apartment is 30+ days. [facility] [Other] - 08/09/25 Referral Note: Referral was made for fdc for medication teaching and occupational therapy. [facility] will contact you to schedule home visit. [facility] [Other] - 3-5 Days Referral Note: Your elder serives [employer] Dulcemarichuy Chapman [phone] ext [phone] will be contacting you to schedule re-evaluation for increase in services. 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 Laura Chapa MD [Primary Care Provider, Medical] - 08/14/25 10:30 am Discharge Medications: New midodrine 5 mg Tablet 5 mg PO TID@0900,1300,1700 Qty: 90 0RF Rexulti 1 mg Tablet 0.5 mg PO BEDTIME Qty: 30 0RF sertraline 100 mg Tablet 100 mg PO DAILY Qty: 30 0RF tramadol 50 mg Tablet 25 mg PO Q4H PRN (Reason: mod to severe pain) Qty: 14 0RF hydroxyzine HCl 25 mg Tablet 25 mg PO BID PRN (Reason: Anxiety) Qty: 60 0RF Continued acetaminophen 650 mg Tablet Extended Release 650 mg PO Q8H PRN (Reason: Pain) Qty: 90 0RF levothyroxine 50 mcg tablet 50 mcg PO DAILY@0600 Qty: 30 0RF lidocaine 5 % adhesive patch,medicated 1 patch topical DAILY PRN (Reason: Pain) Qty: 30 0RF mirtazapine 15 mg Tablet 15 mg PO BEDTIME Qty: 30 0RF albuterol sulfate 90 mcg/actuation HFA aerosol inhaler 1 inh inhalation QID PRN (Reason: wheezing/SOB) Qty: 6.7 0RF Discontinued oxcarbazepine 150 mg tablet 150 mg PO BID Rexulti 1 mg tablet 1 mg PO BEDTIME Discharge Orders: Discharge Order (Routine); Ordered 08/07/25 Ordered By: Miguel Ángel Pollock Diet: Advance to usual diet Activity on Discharge: As tolerated Stand Alone Forms: Patient Portal Discharge page, Community Support Print Language: Luxembourgish Care Plan Goals: Maintain mood and safe behaviors Take medications as prescribed Practice coping skills Continue with outpatient providers and reach out to them as needed Health Concerns: Mood stability and behaviors Plan of Treatment: Follow up with your PCP, psychiatric provider and other outpatient providers regarding above concerns Take medications as prescribed Assessment: Risk assessment at time of discharge:? Patient was interviewed prior to discharge and found to be fully oriented and without any SI or HI. Patient has improved insight and judgment and wants to continue treatment. Patient is not in imminent risk of harm to self or others and has a safety plan that includes presenting to the closest ER or calling 911 if feeling unsafe.? Patient has been observed closely by nursing and unit staff throughout admission; patient has not engaged in any behaviors that suggest dangerousness to self or others and has demonstrated appropriate behaviors and impulse control Discharge Date/Time: 08/08/25 13:03
[2025-08-07 19:56] VITALS: BP 127/64; PULSE 68; RESP 16; TEMP 37; O2SAT 98
[2025-08-08 08:40] VITALS: BP 119/61; PULSE 87; RESP 16; TEMP 36.8; O2SAT 100
[2025-08-08 12:14] VITALS: BP 108/54
== END 2025-08-08 13:03 | disposition home or self-care (01) | DRG 885 ==
LOC: HO.ED 13:33 → HO.PGERI 17:32
PROVIDERS: Physician Assistant Medical; Admitting Provider Social Worker; Emergency Provider Emergency Medicine; PCP Pediatrics; Visit Provider Social Worker
DX: F31.9 Bipolar disorder, unspecified (principal); E03.9 Hypothyroidism, unspecified; M54.41 Lumbago with sciatica, right side; R41.89 Other symptoms and signs involving cognitive functions and awareness; M16.11 Unilateral primary osteoarthritis, right hip; I95.1 Orthostatic hypotension; Z20.822 Contact with and (suspected) exposure to COVID-19; Z79.890 Hormone replacement therapy; Z79.899 Other long term (current) drug therapy
CPT/HCPCS: 36415; 80053; 80061; 80143; 80179; 80307; 81001; 82607; 82746; 83036; 84443; 85025; 87635; 93005; 99285; S9485

== ENCOUNTER → 2025-06-24 12:35 | Outpatient (BNV) | payer MEDICARE, MEDICAID, SELFPAY | PROVIDERS: Emergency Provider Emergency Medicine; PCP Pediatrics; Visit Provider Internal Medicine Cardiovascular Disease | DX: R00.1 Bradycardia, unspecified (principal) | CPT/HCPCS: 93010 ==

== ENCOUNTER → 2025-06-24 17:00 | Outpatient (BNV) | payer MEDICARE, MEDICAID, SELFPAY | PROVIDERS: Admitting Provider Social Worker; Emergency Provider Emergency Medicine; PCP Pediatrics; Visit Provider Social Worker | DX: F31.9 Bipolar disorder, unspecified (principal); R41.89 Other symptoms and signs involving cognitive functions and awareness | CPT/HCPCS: 90792; 99231; 99232 ==

== ENCOUNTER → 2025-06-24 17:00 | Outpatient (BNV) | payer MEDICARE, MEDICAID, SELFPAY | PROVIDERS: Admitting Provider Social Worker; Emergency Provider Emergency Medicine; PCP Pediatrics; Visit Provider Nurse Practitioner Family | DX: E03.9 Hypothyroidism, unspecified (principal) | CPT/HCPCS: 99221; 99499 ==

== ENCOUNTER 2025-08-11 13:21 | Outpatient (AMB) | payer MEDICARE, MEDICAID, SELFPAY ==
--- NOTE | 2025-08-11 13:26 | MHC.OFFVIS ---
Intake Visit Reasons: Memory Issues Accompanied by: Significant Other Allergies penicillin V Allergy (Unknown, Verified 08/11/25 13:36) Unknown Medication List - Last Reconciled 08/11/25 by Claire Olivas CNP acetaminophen ER 650 mg PO Q8H PRN albuterol sulfate 90 mcg/actuation 1 inh inhalation QID PRN brexpiprazole (Rexulti) 0.5 mg PO BEDTIME 30 days hydroxyzine HCl 25 mg PO BID PRN levothyroxine 50 mcg PO DAILY@0600 lidocaine 5% 1 patch topical DAILY PRN midodrine 5 mg PO TID@0900,1300,1700 mirtazapine 15 mg PO BEDTIME sertraline 100 mg PO DAILY tramadol 25 mg (1/2 x 50 mg) PO Q4H PRN HPI Comments Details: 69-year-old woman with hypothyroidism, arthritis, and long history of psychiatric disorder with diagnosis of PTSD, bipolar disorder, and depression, with multiple psychiatric hospitalizations (most recently at [facility] from 06/25/2025 - 08/07/2025) who was here for memory concerns. Memory issues have been ongoing for few years and were characterized by difficulty remembering recent events, such as appointments or taking medication, while retaining long-term memories. She was recently discharged home with [facility] services after 6-week long admission to behavioral health unit. She was accepted to [facility] when placement became available. Mood was stable, and she was following with psychiatrist. Sleep was okay. [facility] Medical History (Updated 08/11/25 @ 14:07 by Claire Olivas CNP) Asthma Hypothyroid Bipolar disorder Osteoarthritis of right hip Family History (Updated 08/11/25 @ 13:38 by Claire Olivas CNP) Sister Dementia Social History Household Members: Significant Other Housing: House Alcohol intake: former Comment: 5 minutes Patient Tobacco Use Status: Tobacco use Unknown service: No Current occupational status: retired Sexual orientation: Straight/Heterosexual Review of Systems Const Denies chills, Denies daytime sleepiness, Denies difficulty sleeping, Denies fatigue, Denies fever(s), Denies frequent falls, Denies headache(s), Denies increased appetite, Denies poor appetite, Denies snoring, Denies weakness, Denies weight gain and Reports weight loss Eyes Denies blurry vision, Denies diplopia and Denies loss of vision ENT Denies vertigo, Reports dizziness, Denies dry mouth, Denies otalgia, Denies headache(s), Denies hearing loss, Denies epistaxis, Denies nasal congestion, Denies neck pain, Denies tinnitus, Denies sinus pain and Denies sore throat Card Denies chest pain at rest, Denies chest pain with activity, Denies syncope, Denies leg edema, Denies palpitations, Denies dyspnea and Denies dyspnea on exertion Resp Reports cough, Denies dyspnea, Denies dyspnea on exertion and Denies snoring GI Denies abdominal pain, Denies constipation, Denies heartburn, Denies diarrhea, Denies nausea and Denies vomiting Denies urinary frequency, Denies nipple discharge, Reports urinary incontinence and Denies urinary urgency Musc Denies abnormal gait, Denies back pain, Denies myalgias, Denies arthralgias, Reports muscle cramps, Denies neck pain, Denies numbness, Denies stiffness and Denies tingling Skin/Breast Denies breast mass, Denies nipple discharge and Denies rash Neuro Denies abnormal gait, Denies vertigo, Reports dizziness, Denies syncope, Denies frequent falls, Denies headache(s), Denies lack of coordination, Denies loss of vision, Reports memory loss, Denies numbness, Denies Other visual disturbances, Denies restless legs, Denies seizure-like activity, Denies tingling, Denies paresthesias, Denies tremor(s) and Denies weakness Psych Reports anxiety, Reports depression, Reports memory loss, Denies visual hallucinations and Denies hallucinations Endo Reports cold intolerance, Denies fatigue, Denies heat intolerance, Denies polydipsia, Denies polyuria and Denies palpitations Zac/Lymph Denies easy bleeding and Denies easy bruising Physical Exam Const Other: General Appearance:? normal, in no acute distress. Head:? normocephalic, atraumatic. Eyes:? sclera non-icteric, conjunctiva clear. Ears:? auditory canal clear, tympanic membrane intact, clear. Nose:? no lesions. Oral Cavity:? gums normal, mucosa moist, no lesions. Throat:? clear. Neck/Thyroid:? no cervical lymphadenopathy. Skin:? no rashes, no significant birthmarks. Heart:? S1, S2 normal, no murmurs. Lungs:? clear anteriorly and posteriorly. Chest:? no gross rib deformity, clear to auscultation. Extremities:? no edema. Psych:? alert, cooperative with exam. Neuro Other: Mental Status:?Alert and awake with normal spontaneity of speech, fluency, comprehension, and affect. MMSE 22/30 Cranial Nerves:?Pupils are equal, round and reactive to light. External occular muscles are intact. Visual yin are full. Face is symmetrical. Facial sensations are normal. Tongue is midline. Palate elevates symmetrically. Shoulder shrugging is normal. Hearing to bedside conversation is normal. Motor Examination:?Normal muscle tone, bulk and strength,?Deep tendon reflexes are 2+,?Plantars are flexor.? Sensory Exam:?....? Coordination:?No ataxia,?no titubation.? Gait Exam: With walker. Cerebellar Signs:?[id number] is with mild tremor. Extrapyramidal System:?No tremor, rigidity with normal facial expressions.? Pronator Drift:?Not present.? Involuntary Movements:?No tremors seen.? Speech:?Normal.? Results Reviewed Results Reviewed: Laboratory Tests 06/24/25 06/25/25 13:21 08:04 WBC 5.2 RBC 3.92 L Hgb 12.1 Hct 34.7 L MCV 88.5 MCH 30.9 MCHC 34.9 RDW 14.1 Plt Count 196 MPV 10.5 Immature Gran % (Auto) 0.4 Neut % (Auto) 63.7 Lymph % (Auto) 25.2 Sawyer % (Auto) 7.6 Eos % (Auto) 2.3 Baso % (Auto) 0.8 Lymph # (Auto) 1.3 Sawyer # (Auto) 0.4 Eos # (Auto) 0.1 Baso # (Auto) 0.0 Abs Immat Gran (auto) 0.02 Absolute Neuts (auto) 3.3 Absolute Nucleated RBC 0.000 Nucleated RBC % (auto) 0.0 Sodium 144 Potassium 4.2 Chloride 107 Carbon Dioxide 28 Anion Gap 13 BUN 20 H Creatinine 1.13 Estim Creat Clear Calc 34.9 Estimated GFR 48 Random Glucose 118 H Hemoglobin A1c % 5.3 Calcium 9.8 Total Bilirubin 0.7 AST 29 ALT 20 Alkaline Phosphatase 70 Total Protein 7.3 Albumin 5.1 H Vitamin B12 1251 H Folate 15.1 TSH 1.10 MRI Brain 05/28/2025: Mild cortical atrophy and mild microvascular disease, cerebellar atrophy CT Brain 12/28/2024: Mild cortical atrophy and mild microvascular disease, cerebellar atrophy Assessment & Plan Assessment & Plan (1) MCI (mild cognitive impairment): Code(s): G31.84 - Mild cognitive impairment of uncertain or unknown etiology Category: Medical Plan: MCI likely related to psychiatric disease. MRI and CT with mild cortical atrophy and mild microvascular disease, cerebellar atrophy noted. Findings are not consistent with Alzheimer's-type dementia. Labs were okay. Continue working with psychiatrist to manage psychiatric conditions and medications. Stay physically and socially active. 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 Plan Exam, findings, and plan reviewed with Dr. Quevedo. Coding Level of Care Code New Pt Level 5 (43596) Diagnoses MCI (mild cognitive impairment) G31.84 Cerebellar ataxia G11.9
== END 2025-08-11 14:15 | disposition home or self-care (01) ==
LOC: HO.HSM 13:22
PROVIDERS: PCP Pediatrics; Visit Provider Registered Nurse
DX: G31.84 Mild cognitive impairment of uncertain or unknown etiology (principal); G11.9 Hereditary ataxia, unspecified
CPT/HCPCS: 99204

== ENCOUNTER → 2025-08-11 13:21 | Outpatient (BNVA) | payer MEDICARE, MEDICAID, SELFPAY | PROVIDERS: PCP Pediatrics; Visit Provider Registered Nurse | DX: G31.84 Mild cognitive impairment of uncertain or unknown etiology (principal); G11.9 Hereditary ataxia, unspecified; F09 Unspecified mental disorder due to known physiological condition; E03.9 Hypothyroidism, unspecified | CPT/HCPCS: 99202 ==

== ENCOUNTER 2025-08-15 19:13 | Inpatient (IN) | payer MEDICARE, MEDICAID, SELFPAY ==
--- OUTSIDE RECORDS SUMMARY | 2025-08-14 10:30 | XMS_ITS | Encounter Summary ---
Author Organization [employer] Address [address] [place] [address] [address] [place] [address] Care Team Providers Care Technical Information Specialist Name Role Phone Laura Chapa MD Primary Care Provider [phone] Reason for Referral * Imaging (Routine) - Authorized Specialty Diagnoses / Procedures Referred By Jovan miranda Referred To Contact Radiology Diagnoses Lump of right thigh Procedures US SOFT TISSUE Laura Chapa MD [address] [place] [address] Phone: tel: fax: [address] Phone: tel: fax: Referral ID Status Reason Start Date Expiration Date V isits Requested Visits Authorized [id number] Authorized 08/14/2025 08/14/2026 1 1 Encounter Details Date Type Department Care Team ([facility] st Contact Info) Description 08/14/2025 10:30 AM EDT Office Visit [facility] [address] [place], [place] [id number] Laura Chapa MD [address], [place] [id number] Lump of right thigh (Primary Dx); Encounter for immunization; Acquired hypothyroidism; Bipolar disorder, in partial remission, most recent episode mixed (CMS/HCC) (HCC); Memory loss Social History Tobacco Use Types Packs/Day Years [...] Sign Reading Time Taken Comments Blood Pressure 100/60 08/14/2025 10:47 AM EDT Pulse 72 08/14/2025 10:47 AM EDT Temperature 36.6 C (97.9 F) 08/14/2025 10:47 AM EDT Respiratory Rate 16 08/14/2025 10:47 AM EDT Oxygen Saturation - - Inhaled Oxygen Concentration - - Weight 48.1 kg (106 lb) 08/14/2025 10:47 AM EDT Height - - Body Mass Index 20.7 06/19/2025 10:58 AM EDT documented in this encounter Progress Notes * Laura Chapa MD - 08/14/2025 10:30 AM EDT Images from the original note were not included. Subjective Patient ID: Maria Ines Chan is a 69 y.o. adult who presents for f/u hospital admission. Maria Ines is here for follow up psych [place] [facility]. Admitted early June and released 08-07.Meds for bipolar disease changed.Patient feels much better and made new friends .Awaiting placementat assisted living facility which should happen in about 1 month.States Needs new script for size large underwear( pullups kind ) due to urine incontinence (1 per day). Goes to [facility] and has a f/u psych appointment on 09/02 that she plans to keep. Review of Systems Constitutional: Positive for appetite change. Negative for activity change, chills, fever and [...] and headaches. Hematological: Negative for adenopathy. Psychiatric/Behavioral: Positive for behavioral problems. Negative for agitation, dysphoric mood, hallucinations, sleep disturbance and suicidal ideas. The patient is not nervous/anxious. Objective BP 100/60 (BP Location: Left arm, Patient Position: Sitting, BP Cuff Size: Adult) Pulse72 Temp 97.9 ??F (36.6 ??C) (Oral) Resp 16 Wt 106 lb (48.1 kg) BMI 20.70 kg/m?? Physical Exam Constitutional: General: Maria Ines is not in [...] Normal pulses. Heart sounds: Normal heart sounds. No murmur heard. Pulmonary: Effort: Pulmonary effort is normal. No respiratory distress. Breath sounds: Normal breath sounds. Abdominal: Palpations: Abdomen is soft. Musculoskeletal: General: Normal range of motion. Cervical back: Normal range of motion. Skin: General: Skin is warm. Capillary Refill: Capillary refill takes less than 2 seconds. Comments: 5 cms size palpable lump, slightly tender Located R upper thigh area,no rash,no warmth Neurological: General: No focal deficit present. Mental Status: Maria Ines is alert and oriented to person, place, and time. Psychiatric: Mood and Affect: Mood normal. Behavior: Behavior normal. Thought Content: Thought content normal. Judgment: Judgment normal. Assessment/Plan Diagnoses and all orders for this visit: Lump of right thigh Comments: Patient Noticed it a few weeks ago,denies any falls. Due to size and location of thigh will order US ,call with results once available. Orders: - US SOFT TISSUE; Future Encounter for immunization Comments: PCV20 vaccine given today w/o complications. Orders: - PCV-20 VACCINE 6 wks + Acquired hypothyroidism Comments: TFts at goal,last checked in .No changes in dose done today. Bipolar disorder, in partial remission, most recent episode mixed (CMS/HCC) (HCC) Comments: Medications reconciled,mood much more stable today,looks happy and not anxious as usual.Awaitingplacement at living assistance facility which should happen soon.Appetite still not great,patient didn't like protein shakes/meal replacements prescribed at last visit. Memory loss Comments: Saw neurology and had CT and brain MRI done. Per neurology this is secondary to uncontrolled mood disorder. documented in this encounter Plan of Treatment Scheduled Orders Name Type Priority Associated Diagnoses Orde r Schedule US SOFT TISSUE Imaging Routine Lump of right thigh Expected: 08/14/2025, Expires: 08/14/2026 documented as of this encounter Visit Diagnoses Diagnosis Lump of right thigh- Primary Encounter for immunization Acquired hypothyroidism Unspecified hypothyroidism Bipolar disorder, in partial remission, most recent episode mixed (CMS/HCC) (HCC) Memory loss documented in this encounter Additional Health Concerns Assessment Noted Time PHQ-9 Depression Total Score: 0 06/19/20 10:59 AM EDT documented as of this encounter Care Teams Technical Information Specialist Relationship Specialty Start Date End Date Laura Chapa MD [address] [place] [id number] PCP - General Family Medicine 10/16/18 [facility] 08/09/25 documented as of this encounter
--- NOTE | ~2025-08-15 | CT_ITS ---
CLINICAL HISTORY: Rectal bleeding CT abdomen and pelvis without contrast Comparison: None provided Findings: Scattered tiny pulmonary nodules or nodular infiltrate in the visualized right middle lobe and bilateral lower lobes. Evaluation or hemorrhage and of solid organs limited on noncontrast CT. Gallstones in the dependent gallbladder. No focal hepatic lesion. Prominent Chepe's lobe noted. Visualized pancreas and spleen are within normal limits. Adrenal glands are poorly characterized. Kidneys are non hydronephrotic. No bowel obstruction, pneumoperitoneum, or pneumatosis. Appendix not visualized, likely surgically absent. Visualized urinary bladder and pelvic structures are grossly within normal limits. Severe asymmetric right hip osteoarthritic changes are present. Bones are osteopenic. IMPRESSION: 1. Unremarkable CT abdomen and pelvis with ancillary findings detailed above. 2. Small nodular opacities or nodular infiltrate in the lung bases. Please correlate clinically. This document has been electronically signed by: Leonard Lundy MD, PHD on 08/16/2025 01:12:24
[2025-08-15 19:23] VITALS: BP 140/90; PULSE 87; O2SAT 99
[2025-08-15 19:25] VITALS: BP 127/68; PULSE 74; RESP 20; TEMP 36.6; O2SAT 100; BMI 20.9
[2025-08-15 19:33] VITALS: BP 127/68; PULSE 74; RESP 20; TEMP 36.6; O2SAT 100
--- OUTSIDE RECORDS SUMMARY | 2025-08-15 19:43 | XMS_ITS | Encounter Summary ---
Author Organization [employer] Address [address] [facility] [address] [place] [address] Care Team Providers Care Lead Front Desk Agent Name Role Phone Laura Chapa MD Primary Care Provider [phone] Reason for Visit * Reason Comments Med Refill Encounter Details Date Type Department Care Team ([facility] Contact Info) Description 09/29/2023 Refill [facility] [address] [place], [place] [phone] Laura Chapa MD [address] [place] [address] Pain Social History Tobacco Use Types Packs/Day [...] documented as of this encounter Care Teams Lead Front Desk Agent Relationship Specialty Start Date End Date Laura Chapa MD [address] [place] [id number] PCP - General Family Medicine 10/16/18 [facility] 08/09/25 documented as of this encounter
--- OUTSIDE RECORDS SUMMARY | 2025-08-15 19:43 | XMS_ITS | Encounter Summary ---
Author Organization [employer] Address [address] [facility] [address] [place] [address] Care Team Providers Care Steel Hanger Name Role Phone Laura Chapa MD Primary Care Provider [phone] Reason for Visit * Reason Onset Date Comments Chart Prep 08/12/2025 Encounter Details Date Type Department Care Team ([facility] Contact Info) Description 08/12/2025 Telephone C [facility] [address] [place] [address] Laura Chapa MD [address] [place] [address] Chart Prep Social History Tobacco Use Types Packs/Day Years [...] encounter Miscellaneous Notes * Telephone Encounter - Krystal Davison [place] - 08/12/2025 2:11 PM EDT Chart Prep Labs: not applicable Images: done Referrals: complete Vaccines due: Covid, Flu, PCV20, RSV, and Zoster Screenings: colonoscopy and mammogram Overdue care gaps: SBIRT, SDOH, Oral health screening, and Tobacco documented in this encounter Plan of Treatment Not on file documented as of this encounter Visit Diagnoses Not on filedocumented in this encounter Additional Health Concerns Assessment Noted Time PHQ-9 Depression Total Score: 0 06/19/20 10:59 AM EDT documented as of this encounter Care Teams Steel Hanger Relationship Specialty Start Date End Date Laura Chapa MD [address] [place] [address] PCP - General Family Medicine 10/16/18 [facility] 08/09/25 documented as of this encounter
--- OUTSIDE RECORDS SUMMARY | 2025-08-15 19:43 | XMS_ITS | Clinical Summary ---
Author Organization [employer] Address [address] [place] [address] Care Team Providers Care Exploration Engineer Name Role Phone Laura Chapa MD Primary Care Provider [phone] Allergies Active Allergy Reactions Criticality Noted Date Comments Penicillin V 11/11/2010 Other reaction(s): rash Medications * This document contains information received from the source organization and may not represent a complete record from that organization. Calcium + Vitamin D3 600-10 MG-MCG tabletIndications :Continuous leakage of urine Take 1 tablet by mouth 2 times daily. 180 tablet 3 10/18/19 23 Active Multiple Vitamin (multivitamin) tablet Take 1 tablet by mouth Once per day. Active mirtazapine (Remeron) 15 MG tablet Take 1 tablet (15 mg) by mouth at bedtime. 30 tablet 1 01/14/20 25 Active Spacer/Aero-Holdi ng Chambers (AeroChamber Holding Chamber) deviceIndications :Shortness of breath 1 Device Once per day. 1 each 02/07/20 25 Active Ventolin HFA 108 (90 Base) MCG/ACT inhaler INHALE 1 PUFF EVERY 6 (SIX) HOURS IF NEEDED FOR WHEEZING. 18 g 1 04/17/20 25 Active Nutritional Supplements (Boost High Protein) liquidIndications :Memory loss Drink 1 bottle daily ( vanilla flavor) 5688 mL 06/19/20 25 Active levothyroxine (Synthroid, Levoxyl) 50 MCG tabletIndications :Acquired hypothyroidism TAKE 1 TABLET BY MOUTH DAILY 90 tablet 07/11/20 25 Active sertraline (Zoloft) 100 MG tablet Take 1 tablet by mouth Once per day. Active hydrOXYzine HCl (Atarax) 25 MG tablet Take 1 tablet by mouth if needed in the morning and at bedtime for anxiety. Active traMADol (Ultram) 50 MG tablet Take 1 tablet by mouth every 4 (four) hours if needed for severe pain or moderate pain. Active Brexpiprazole (Rexulti) 0.5 MG tablet Take 1 tablet by mouth at bedtime. Active midodrine (Proamatine) 5 MG tablet Take 1 tablet by mouth 3 times daily. Active omega-3 (Fish Oil) 1000 MG capsule Take 1 capsule by mouth 1 (one) time each day. 06/07/20 16 2024 Discontinued(T herapy completed) ferrous sulfate 325 (65 Fe) MG tablet TAKE 2 TABLETS BY MOUTH EVERY DAY 60 tablet 3 12/07/19 24 2024 Discontinued(T herapy completed) Rexulti 1 MG tablet Take 1 tablet by mouth at bedtime. 12/27/19 25 2024 Discontinued midodrine (Proamatine) 5 MG tablet Take 1 tablet by mouth every 6 (six) hours during the day. 12/26/19 25 2024 Discontinued OXcarbazepine (Trileptal) 150 MG tablet Take 1 tablet by mouth 2 times daily. 2024 Discontinued lidocaine (Lidoderm) 5 % patchIndications: Pain Apply 1 patch topically Once per day. Remove & discard patch within 12 hours or as directed by MD. 30 patch 3 01/14/20 25 2024 Discontinued(T herapy completed) oxybutynin XL (Ditropan-XL) 15 MG 24 hr tabletIndications :Continuous leakage of urine TAKE 1 TABLET BY MOUTH EVERY DAY IN THE MORNING 30 tablet 3 02/06/20 25 2024 Discontinued(T herapy completed) midodrine (Proamatine) 5 MG tablet Take 1 tablet by mouth 3 times daily. 2024 Discontinued Active Problems Problem Noted Date Diagnosed [...] Patient to reach out to [facility] team as needed, Comply with medication , Patient to engage in OP therapy , and Patient to reach out to [facility] as needed. Hypothyroidism 03/22/2016 08/09/2023 Osteopenia 06/03/2014 08/09/2023 Encounters Date Type Department Care Team Description 08/14/2025 10:30 AM EDT Office Visit [facility] [address] [place] [address] Laura Chapa MD Lump of right thigh (Primary Dx); Encounter for immunization; Acquired hypothyroidism; Bipolar disorder, in partial remission, most recent episode mixed (CMS/HCC) (HCC); Memory loss 08/14/2025 Travel 08/12/[address] [facility] [address] [place], [place] [phone] Laura Chapa MD Chart Prep 08/07/2025 Patient Outreach [facility] [address] [place], [place] [phone] Laura Chapa MD Transition Of Care (Tcm) (HDF- Scheduled with Tangela ) 08/07/2025 Telephone [facility] [address] [place] [address] Laura Chapa MD Hospital Follow-up 07/24/[address] [address] Laura Chapa MD telephone call 07/23/2025 Patient Outreach [address] [address] Laura Chapa MD Medicare Annual Wellness Visit Initial (Annual wellness visit unscheduled) 07/15/[address] [address] Laura Chapa MD telephone call 07/14/[address] Nutrition referral 07/11/[address] [address] Laura Chapa MD Acquired hypothyroidism 06/24/2025 Orders Only GENERIC EXTERNAL DATA DEPARTMENT Provider, Generic External Data 06/19/2025 11:00 AM EDT Office Visit [facility] [address] [place] [address] Laura Chapa MD Memory loss (Primary Dx); Acquired hypothyroidism; Protein-calorie malnutrition, unspecified severity (CMS/HCC); Bipolar disorder, in partial remission, most recent episode mixed (CMS/HCC) 06/19/2025 Travel 06/17/[address] [address] Laura Chapa MD Med Refill 06/17/[address] [facility] [address] [place] [address] Laura Chapa MD Chart Prep 06/13/[address] [facility] [address] [place] [address] Alee Colin MD 06/12/[address] [facility] [address] [place] [address] Laura Chapa MD Med Refill 06/11/2025 Telephone [facility] [address] [place] [address] Laura Chapa MD Med Refill 06/09/[address] [facility] [address] [place] [address] Alee Colin MD 06/09/2025 Refill [facility] [address] [place] [address] Laura Chapa MD 06/09/[address] [facility] [address] [place] [address] Laura Chapa MD 05/29/2025 Results Follow-Up [facility] [address] [place] [address] Alee Colin MD MR Brain w/o Contrast 05/21/2025 Telephone [facility] [address] [place] [address] Laura Chapa MD 05/19/2025 [facility] Health Information Management [address] [place] [address] Alee Colin MD from Last 3 Months Immunizations Immunization Administration Dates Next Due Pneumococcal Conjugate PCV 20 08/14/2025 Pneumococcal Polysaccharide PPSV23 02/28/2013, TD (adult), 2 [...] 16 08/14/2025 10:47 AM EDT Oxygen Saturation 98% 05/13/2025 9:26 AM EDT Inhaled Oxygen Concentration - - Weight 48.1 kg (106 lb) 08/14/2025 10:47 AM EDT Height 152.4 cm (5') 06/19/2025 10:58 AM EDT Body Mass Index 20.7 06/19/2025 10:58 AM EDT Plan of Treatment Health Maintenance Due Date Last Done Comments CT Colonography 1955 Colonoscopy 1955 Colorectal Cancer Screening 1955 FIT DNA/Cologuard 1955 FIT 1955 FOBT 1955 SDOH Screening 1955 Sigmoidoscopy 1955 Alcohol/Substance Use Screening 1968 Hepatitis C Screening 1974 Mammogram 1996 Zoster Vaccines (1 of 2) 2006 RSV Patients and Patients Aged 60 years or older (1 - Risk 60-74 years 1-dose series) 2016 COVID-19 Vaccine ( - 2023-2 5 season) 2025 Influenza Vaccine (#1) 2025 DTaP/Tdap/Td Vaccines (3 - T d or Tdap) 06/02/2026 06/02/2016, 04/25/2016 Depression Screening 06/19/2026 06/19/2025, 06/19/2025 Tobacco Screening 08/14/2026 08/14/2025 Pneumococcal Vaccine: 50+ Years Completed 08/14/2025, 02/28/2013, 03/01/2012 HIB Vaccines Aged Out No longer eligi [...] EDT) ETHANOL (MG/DL) IN SER/PLAS <10 mg/dL [facility] Comment:Serum/plasma ethanol results are to be used formedical/treatment purposes only. 06/24/2025 1:22 PM EDT 06/24/2025 1:25 PM EDT Generic External Data Provider LAB BLOOD ORDERAB LES Final Result Performing Organization Address [facility] de Phone Number [facility] [address] [place] [phone] * (ABNORMAL) Urinalysis with Reflex to Microscopic (06/24/2025 1:22 PM EDT) Color Urine Yellow [facility] Appearance Urine Clear [facility] PH 6.5 5.0 - 9.0 [facility] Glucose Urine UA Negative Negative mg/dL [facility] Urine Blood Negative Negative [facility] Specific [place] - Urine 1.015 1.005 - 1.025 [facility] Urine Protein Negative Neg-Trace mg/dL [facility] Urine Ketones Negative Negative mg/dL [facility] Nitrite Urine Negative Negative [facility] Leukocyte Esterase Urine Trace(A) Negative [facility] 06/24/2025 1:22 PM EDT 06/24/2025 1:25 PM EDT Generic External Data Provider LAB URINE ORDERAB LES Final Result Performing Organization Address [facility] Co de Phone Number [facility] [address] [place] [phone] * TSH with Reflex to Free T4 (06/24/2025 1:22 PM EDT) TSH reflex Free T4 0.82 0.32 - 4.0 uIU/mL [facility] 06/24/2025 1:22 PM EDT 06/24/2025 1:25 PM EDT us Generic External Data Provider LAB BLOOD ORDERAB LES Final Result [facility] [address] [place] [phone] [phone] * Drug Monitoring, Panel 1, Screen, Urine (06/24/2025 1:22 PM EDT) Opiate Screen Urine Not Detected Not Detect [facility] Comment:Opiate cut-off is 30 0 ng/mL.Positive results are unconfirmed and should not be used fornon-medical purposes. Barbiturates, Urine Not Detected Not Detect [facility] Comment:Barbiturate cut-off is 200 ng/mL.Positive results are unconfirmed and should not be used fornon-medical purposes. Phencyclidine Screen Urine Not Detected Not Detect [facility] Comment:Phencyclidine cut-of f is 25 ng/mL.Positive results are unconfirmed and should not be used fornon-medical purposes. Amphetamine Screen Urine Not Detected Not Detect [facility] Comment:Amphetamine cut-off is 1000 ng/mL.Positive results are unconfirmed and should not be used fornon-medical purposes. Benzodiazepines Screen Urine Not Detected Not Detect [facility] Comment:Benzodiazepine cut-o ff is 200 ng/mL.Positive results are unconfirmed and should not be used fornon-medical purposes. Cocaine Screen Urine Not Detected Not Detect [facility] Comment:Cocaine cut-off is 3 00 ng/mL.Positive results are unconfirmed and should not be used fornon-medical purposes. Cannabinoid Screen Urine Not Detected Not Detect [facility] Comment:Cannabinoid cut-off is 50 ng/mL.Positive results are unconfirmed and should not be used fornon-medical purposes. Methadone Screen, Urine Not Detected Not Detect ng/mL [facility] Comment:Methadone cut-off is 300 ng/mL.Positive results are unconfirmed and should not be used fornon-medical purposes. FENTANYL URINE Not Detected Not Detect [facility] Comment:Fentanyl cut-off is 1 ng/mL.Positive results are unconfirmed and should not be used fornon-medical purposes. Oxycodone Urine Screen Not Detected Not Detect ng/mL [facility] Comment:Oxycodone cut-off is 100 ng/mL.Positive results are unconfirmed and should not be used fornon-medical purposes. Buprenorphine Screen Not Detected Not Detect ng/mL [facility] Comment:Buprenorphine cut-of f is 5 ng/mL.Positive results are unconfirmed and should not be used fornon-medical purposes. 06/24/2025 1:22 PM EDT 06/24/2025 1:25 PM EDT us Generic External Data Provider LAB URINE ORDERAB LES Final Result Performing Organization Address City/[facility]/ZIP Co de Phone Number [facility] [address] [place] [phone] * (ABNORMAL) Urinalysis Complete (06/24/2025 1:22 PM EDT) Color Urine Yellow [facility] Appearance Urine Clear [facility] PH 6.5 5.0 - 9.0 [facility] Glucose Urine UA Negative Negative mg/dL [facility] Urine Blood Negative Negative [facility] Specific [place] - Urine 1.015 1.005 - 1.025 [facility] Urine Protein Negative Neg-Trace mg/dL [facility] Urine Ketones Negative Negative mg/dL [facility] Nitrite Urine Negative Negative [facility] Leukocyte Esterase Urine Trace(A) Negative [facility] RBC Urine 0-2 0 - 2 /HPF [facility] Urine WBC 0-5 0 - 5 /HPF [facility] Urine Squamous Epithelial Cell 0-2 0 - 2 /HPF [facility] Urine Bacteria None Seen None Seen [facility] Hyaline Casts, Urine 0-2 0 - 2 /LPF [facility] 06/24/2025 1:22 PM EDT 06/24/2025 1:25 PM EDT us Generic External Data Provider LAB URINE ORDERAB LES Final Result [facility] [address] [place] [phone] [phone] * (ABNORMAL) Comprehensive Metabolic Panel (06/24/2025 1:22 PM EDT) Sodium 147(H) 135 - 145 mmol/L [facility] Potassium 4.1 3.3 - 5.1 mmol/L [facility] Chloride 109(H) 96 - 108 mmol/L [facility] Carbon Dioxide 27 22 - 29 mmol/L [facility] Anion Gap 15 12 - 20 [facility] Urea Nitrogen (BUN) 22(H) 9 - 16 mg/dL [facility] Creatinine, Serum 1.26 0.5 - 1.4 mg/dL [facility] Creatinine Clr Calc Pharmacy 31.2 [facility] Comment:Provided height and weight: 154.94 cm,46.266 kg.eGFR (calculated from the MDRD study equation) and eCrCl(calculated from the Cockcroft-Gault equation) are based ondifferent parameters and may not yield comparable results.If eCrCl result is absurd, please check patient'sheight/weight. Estimated Glomerular Filt Rate 42 [facility] Comment:Chronic Kidney Disea se: Estimated GFR < 60 mL/min/1.77h2Qsgnbf Kidney Disease: Estimated GFR < 15 mL/min/1.73m2 Glucose 102 60 - 115 mg/dL [facility] Calcium 9.6 8.4 - 10.2 mg/dL [facility] Bilirubin, Total 0.3 0.0 - 1.0 mg/dL [facility] Aspartate Amino Transferase 25 5 - 31 U/L [facility] Alanine Aminotransferase 15 0 - 31 U/L [facility] Total Protein 6.8 6.5 - 8.0 g/dL [facility] Albumin Level 4.8 3.5 - 5.0 g/dL [facility] Alkaline Phosphatase 60 39 - 117 U/L [facility] 06/24/2025 1:22 PM EDT 06/24/2025 1:25 PM EDT us Generic External Data Provider LAB BLOOD ORDERAB LES Final Result Performing Organization Address [facility] Co de Phone Number [facility] [address] [place] [phone] * COVID-19 ID NOW (DE ANDA) (06/24/2025 1:21 PM EDT) IDNOW SERIAL# [id number] [facility] COVID-19 TEST Negative Negative [facility] COVID-19 NOTE See Note [facility] Comment: Results are for the identification of SARS-CoV2 RNA. TheSARS-CoV2 RNA is generally detectable in respiratory samplesduring the acute phase of infection. Positive results areindicative of the presence of SARS-CoV-2 RNA; clinicalcorrelation with patient history and other diagnosticinformation is necessary to determine patient infectionstatus. Positive results do not rule out bacterial infectionor co- infection with other viruses.Testing facilities within the [facility] and itsterritories are required to report all [...] GNOSTICS ORDERABLES Final Result Performing Organization Address [facility] Co de Phone Number [facility] [address] [place] [phone] * (ABNORMAL) CBC auto differential (06/24/2025 1:21 PM EDT) White Blood Count 5.2 4.8 - 10.8 X10*3/uL [facility] Red Blood Count 3.92(L) 4.20 - 5.50 X10*6/uL [facility] Hemoglobin 12.1 12.0 - 16.0 g/dl [facility] Hematocrit 34.7(L) 37.0 - 47.0 % [facility] Mean Corpuscular Volume 88.5 80.0 - 98.0 fL [facility] Mean Corpuscular Hemoglobin 30.9 27.0 - 33.0 pg [facility] Mean Corpuscular HGB Conc 34.9 31.0 - 35.0 g/dl [facility] Red Cell Distribution Width 14.1 11.0 - 16.0 % [facility] Platelet Count 196 160 - 400 X10*3/uL [facility] Mean Platelet Volume 10.5 9.4 - 12.3 fL [facility] Neutrophils Percent Auto 63.7 45 - 73 % [facility] Imm Gran Pct Auto 0.4 0.0 - 0.4 % [facility] Lymphocytes Percent Auto 25.2 20 - 40 % [facility] Monocytes Percent Auto 7.6 2 - 11 % [facility] Eosinophils Percent Auto 2.3 0 - 4 % [facility] Basophils Percent Auto 0.8 0 - 2 % [facility] NRBC Pct Auto 0.0 0.0 - 0.2 /100WBC [facility] Neutrophils Absolute Auto 3.3 2.0 - 8.3 x10*3/uL [facility] Imm Gran Abs Auto 0.02 0.00 - 0.03 X10*3/uL [facility] Lymphocytes Absolute Auto 1.3 1.2 - 4.9 X10*3/uL [facility] Monocytes Absolute Auto 0.4 0.1 - 1.2 X10*3/uL [facility] Eosinophils Absolute Auto 0.1 0.0 - 0.4 X10*3/uL [facility] Basophils Absolute Auto 0.0 0.0 - 0.2 X10*3/uL [facility] NRBC Abs Auto 0.000 0.0 - 0.012 X10*3/uL [facility] 06/24/2025 1:21 PM EDT 06/24/2025 1:25 PM EDT us Generic External Data Provider LAB BLOOD ORDERAB LES Final Result Performing Organization Address City/[facility]/ZIP Co de Phone Number [facility] [address] [place] [phone] * Acetaminophen level (06/24/2025 1:21 PM EDT) Acetaminophen LAB 4 <30 mcg/mL [facility] 06/24/2025 1:21 PM EDT 06/24/2025 1:25 PM EDT us Generic External Data Provider LAB BLOOD ORDERAB LES Final Result Performing Organization Address [facility] Co de Phone Number [facility] [address] [place] [phone] * (ABNORMAL) Salicylate (06/24/2025 1:21 PM EDT) Salicylate <5.0(L) 15 - 30 mg/dL [facility] 06/24/2025 1:21 PM EDT 06/24/2025 1:25 PM EDT us Generic External Data Provider LAB BLOOD ORDERAB LES Final Result Performing Organization Address [facility] Co de Phone Number [facility] [address] [place] [phone] * MR Brain w/o Contrast (05/28/2025 4:40 PM EDT) Anatomical Region Laterality Modality Brain Magnetic Resonan ce 05/28/2025 4:40 PM EDT Narrative 05/29/2025 7:18 AM EDT [address] [address] Magnetic Resonance Report Signed Patient: Maria Ines Chan MR#: [id number] 59 : 1955 Acct:[id number] Age/Sex: 69 / F ADM Date: 05/28/25 Loc: HO.MRI Attending Dr: Alee Colin MD Ordering Physician: Alee Colin MD Date of Service: 05/28/25 Procedure(s): MR head/brain wo con Accession Number(s): [id number] cc: Laura Chapa MD; Alee Colin MD [...] 05/29/25 0715 DD/ 1640 TD/TT: 05/28/25 1656 City Attorney: Procedure Note Donotuseinterpreter, Image - 05/29/[address] [address] Magnetic Resonance Report Signed Patient: Maria Ines ChanMR#: [id number] 59 : 1955cct:[id number] Age/Sex: 69 / FADM Date: 05/28/25 Loc: HO.MRI Attending Dr: Alee Colin MD Ordering Physician: Alee Colin MD Date of Service: 05/28/25 Procedure(s): MR head/brain wo con Accession Number(s): [id number] cc: Laura Chapa MD; Alee Colin MD [...] 05/29/25 0715 DD/ 1640 TD/TT: 05/28/25 1656 City Attorney: Alee Colin MD IMG MRI PROCEDURES Final Result from Last 3 Months Insurance Member Subscriber Plan / Payer ( fective 2023-Present) Name:Maria Ines Chan Member ID:[id number] Relation to Subscriber:Self Name:Maria Ines Chan Subscriber ID:[id number] Payer ID:[id number] Group ID:Not on file Type:Medicare Address: [facility] [address] [phone] [facility] * Guarantor: Maria Ines Chan A Account Type Relation to Patient Date of Phone Billing Address Personal/Family Self [address] Care Teams Exploration Engineer Relationship Specialty Start Date End Date Laura Chapa MD [address] [place] [address] PCP - General Family Medicine 10/16/18 [facility] 08/09/25
--- OUTSIDE RECORDS SUMMARY | 2025-08-15 19:43 | XMS_ITS | Encounter Summary ---
Author Organization [employer] Address [address] [facility] 7t [place] [address] Care Team Providers Care Pcu Rn Name Role Phone Laura Chapa MD Primary Care Provider [phone] Reason for Visit * Reason Comments Med Refill Encounter Details Date Type Department Care Team ([facility] st Contact Info) Description 06/09/2025 Refill [facility] [address] [place] [address] Laura Chapa MD [address] [place] [address] Social History Tobacco Use Types Packs/Day Years [...] documented as of this encounter Care Teams Pcu Rn Relationship Specialty Start Date End Date Laura Chapa MD [address] [place] [address] PCP - General Family Medicine 10/16/18 [facility] 08/09/25 documented as of this encounter
--- OUTSIDE RECORDS SUMMARY | 2025-08-15 19:43 | XMS_ITS | Encounter Summary ---
Author Organization [employer] Address [address] [facility] 7t [place] [address] Care Team Providers Care Vp Outcomes Name Role Phone Laura Chapa MD Primary Care Provider [phone] Reason for Visit * Reason Onset Date Comments Med Refill 06/11/2025 Encounter Details Date Type Department Care Team ([facility] st Contact Info) Description 06/11/2025 Telephone [facility] [address] [place] [address] Laura Chapa MD [address] [place] [address] Med Refill Social History Tobacco Use Types [...] 500 MG tablet To be sent to: [facility] [id number] - [place] - [address] documented in this encounter Plan of Treatment Not on file documented as of this encounter Visit Diagnoses Not on filedocumented in this encounter Additional Health Concerns Assessment Noted Time PHQ-9 Depression Total Score: 9 11/22/19 24 2:46 PM EST documented as of this encounter Care Teams Vp Outcomes Relationship Specialty Start Date End Date Laura Chapa MD [address] [place] [address] PCP - General Family Medicine 10/16/18 [facility] 08/09/25 documented as of this encounter
--- OUTSIDE RECORDS SUMMARY | 2025-08-15 19:43 | XMS_ITS | Encounter Summary ---
Author Organization [employer] Address [address] [facility] 7t [place] [address] Care Team Providers Care Prosthetic Aide Name Role Phone Laura Chapa MD Primary Care Provider [phone] Reason for Visit * Reason Onset Date Comments Call Back Request 08/28/2023 Encounter Details Date Type Department Care Team ([facility] Contact Info) Description 08/28/[address] [facility] [address] [place] [phone] Laura Chapa MD [address] [place], [place] [phone] Call Back Request Social History Tobacco Use [...] documented as of this encounter Care Teams Prosthetic Aide Relationship Specialty Start Date End Date Laura Chapa MD [address] [place] [phone] PCP - General Family Medicine 10/16/18 [facility] 08/09/25 documented as of this encounter
--- OUTSIDE RECORDS SUMMARY | 2025-08-15 19:43 | XMS_ITS | Encounter Summary ---
Author Organization [employer] Address [address] [place] [address] 7t [place] [address] Care Team Providers Care Home Health Clinical Supervisor Name Role Phone Laura Chapa MD Primary Care Provider [phone] Reason for Visit * Reason Onset Date Comments Nurse Triage 04/01/2025 Encounter Details Date Type Department Care Team ([facility] Contact Info) Description 04/01/2025 Telephone C [facility]S [address] [place], [place] [phone] Laura Chapa MD 505 [place] [address] Nurse Triage Social History Tobacco Use Types [...] documented as of this encounter Care Teams Home Health Clinical Supervisor Relationship Specialty Start Date End Date Laura Chapa MD [address] [place] [address] PCP - General Family Medicine 10/16/18 [facility] 08/09/25 documented as of this encounter
--- OUTSIDE RECORDS SUMMARY | 2025-08-15 19:43 | XMS_ITS | Encounter Summary ---
Author Organization [employer] Address [address] [place] [address] 7t [place] [address] Care Team Providers Care Coal Pulverizing Operator Name Role Phone Laura Chapa MD Primary Care Provider [phone] Reason for Visit * Reason Onset Date Comments Med Refill 06/12/2025 Encounter Details Date Type Department Care Team ([facility] Contact Info) Description 06/12/2025 Telephone [facility] MED & PEDS 505 [place] [address] Laura Chapa MD [address] [place] [address] Med Refill Social History Tobacco Use Types [...] 500 MG tablet To be sent to: [facility]- [id number] - JULIANNA Kendrick - [address] [facility] documented in this encounter Plan of Treatment Not on file documented as of this encounter Visit Diagnoses Not on filedocumented in this encounter Additional Health Concerns Assessment Noted Time PHQ-9 Depression Total Score: 9 11/22/19 24 2:46 PM EST documented as of this encounter Care Teams Coal Pulverizing Operator Relationship Specialty Start Date End Date Laura Chapa MD [address] [place] [address] PCP - General Family Medicine 10/16/18 [facility] 08/09/25 documented as of this encounter
--- OUTSIDE RECORDS SUMMARY | 2025-08-15 19:43 | XMS_ITS | Encounter Summary ---
Author Organization [employer] Address [address] [facility] 7t [place] [address] Care Team Providers Care Yoga Instructor Name Role Phone Laura Chapa MD Primary Care Provider Encounter Details Date Type Department Care Team ([facility] Contact Info) Description 06/20/2023 Orders Only [facility] CHC MED & PEDS [address] [place] [address] Laura Chapa MD 505 [place] [address] Social History Tobacco Use Types Packs/Day Years [...] EDT) Sodium 140 135 - 145 mmol/L [facility] Potassium 3.9 3.3 - 5.1 mmol/L [facility] Chloride 103 96 - 108 mmol/L [facility] Carbon Dioxide 25 22 - 29 mmol/L [facility] Anion Gap 16 12 - 20 [facility] Urea Nitrogen (BUN) 28(H) 9 - 16 mg/dL [facility] Creatinine, Serum 1.47(H) 0.5 - 1.4 mg/dL [facility] Estimated Glomerular Filt Rate 36 [facility] Comment:NOTE: For -Am erican individuals, multiply the result by 1.210.Chronic Kidney Disease: Estimated GFR < 60 mL/min/1.75j5Lhnpfa Kidney Disease: Estimated GFR < 15 mL/min/1.73m2 Glucose Fasting 93 60 - 99 mg/dL [facility] Calcium 11.2(H) 8.4 - 10.2 mg/dL [facility] 08/09/2023 11:5 3 AM EDT 08/09/2023 2:55 PM EDT us Laura Chapa MD LAB BLOOD ORDERABLES Final Re sult [facility] [address] [place] [phone] * (ABNORMAL) Complete Blood Count Manual Diff (07/29/2023 10:46 PM EDT) White Blood Count 9.0 4.8 - 10.8 X10*3/uL [facility] Red Blood Count 3.42(L) 4.20 - 5.50 X10*6/uL [facility] Hemoglobin 10.6(L) 12.0 - 16.0 g/dl [facility] Hematocrit 30.2(L) 37.0 - 47.0 % [facility] Mean Corpuscular Volume 88.3 80.0 - 98.0 fL [facility] Mean Corpuscular Hemoglobin 31.0 27.0 - 33.0 pg [facility] Mean Corpuscular HGB Conc 35.1(H) 31.0 - 35.0 g/dl [facility] Red Cell Distribution Width 13.2 11.0 - 16.0 % [facility] Platelet Count 307 160 - 400 X10*3/uL [facility] Mean Platelet Volume 10.0 9.4 - 12.3 fL [facility] NRBC Pct Auto 0.0 0.0 - 0.2 /100WBC [facility] NRBC Abs Auto 0.000 0.0 - 0.012 X10*3/uL [facility] Neutrophils % Manual 69 45 - 73 % [facility] Band Neutrophils Percent 5 3 - 5 % [facility] Lymphocytes Percent Manual 18(L) 20 - 40 % [facility] Monocytes Percent Manual 5 2 - 11 % [facility] EOSINOPHILS % MANUAL 1 0 - 4 % [facility] BASOPHILS % MANUAL 1 0 - 2 % [facility] Metamyelocytes % (Manual) 1 % [facility] NEUTROPHILS ABSOLUTE MANUAL 6.7 2.0 - 8.3 X10*3/uL [facility] LYMPHOCYTES ABSOLUTE MANUAL 1.6 1.2 - 4.9 X10*3/uL [facility] MONOCYTES ABSOLUTE MANUAL 0.5 0.1 - 1.2 X10*3/uL [facility] EOSINOPHILS ABSOLUTE MANUAL 0.1 0.0 - 0.4 X10*3/uL [facility] BASOPHILS ABSOLUTE MANUAL 0.1 0.0 - 0.2 X10*3/uL [facility] Absolute Metamyelocytes 0.1 X10*3/uL [facility] Platelet Estimate NORMAL NORMAL [facility] Platelet Morphology Comment NORMAL [facility] RBC Morphology NORMAL [facility] 07/29/2023 10:4 6 PM EDT 07/29/2023 10:54 PM EDT us [facility] External Provider LAB BLO OD ORDERABLES Final Result [facility] [address] [place] [phone] documented in this encounter Visit Diagnoses Not on filedocumented in this encounter Care Teams Yoga Instructor Relationship Specialty Start Date End Date Laura Chapa MD [address] [place] [address] PCP - General Family Medicine 10/16/18 Rosario [facility] 08/09/25 documented as of this encounter
--- OUTSIDE RECORDS SUMMARY | 2025-08-15 19:43 | XMS_ITS | Clinical Summary ---
Author Organization [facility] Address [address] [place] [address] Phone Care Team Providers Care Lead Systems Developer Name Role Phone Unavailable Primary Care Provider Unavailabl e Encounters Date Type Department Care Team Description 06/10/2025 2:30 PM EDT Office Visit Orthopedic Surgery [facility] [address] [phone] Roger Bains DPM Tinea pedis of both [...] Upcoming Encounters Date Type Department Care Team ([facility] st Contact Info) Description 09/15/2025 2:30 PM EST Office Visit Orthopedic Surgery [facility] [address] [phone] Roger Bains DPM [address] [place] [phone] Health Maintenance Due Date Last Done Comments Breast Cancer Screening 1955 Colorectal Cancer Screening: Colonoscopy 1955 Zoster Vaccines (1 of 2) 2006 Pneumococcal Vaccine: 50+ Years (2 of 2 - PCV) 02/28/2014 02/28/2013, 03/01/2012 Depression Screening 10/16/2024 Falls Risk Assessment 02/15/2025 Hepatitis C Screening [...] age to complete this topic Insurance #2 [place] [address] MEDICARE MEDICAID - [place]
--- OUTSIDE RECORDS SUMMARY | 2025-08-15 19:43 | XMS_ITS | Encounter Summary ---
Author Organization [employer] Address [address] [facility] 7t [place] [address] Care Team Providers Care Potato Pancake Frier Name Role Phone Laura Chapa MD Primary Care Provider [phone] Reason for Visit * Reason Onset Date Comments Medication Question 09/13/2023 Encounter Details Date Type Department Care Team ([facility] Contact Info) Description 09/13/2023 Telephone [facility] MEDICINE [address] [place] [phone] Laura Chapa MD 505 [place] [address] Medication Question Social History Tobacco Use Types [...] to call us back. Routing back to [facility] nurses to try again. * Telephone Encounter [...] documented as of this encounter Care Teams Potato Pancake Frier Relationship Specialty Start Date End Date Laura Chapa MD [address] [place] [address] PCP - General Family Medicine 10/16/18 Rosario [facility] Services 08/09/25 documented as of this encounter
--- OUTSIDE RECORDS SUMMARY | 2025-08-15 19:43 | XMS_ITS | Encounter Summary ---
Author Organization [employer] Address [address] [place] [address] 7 [place] [address] Care Team Providers Care Environmental Attorney Name Role Phone Laura Chapa MD Primary Care Provider [phone] Encounter Details Date Type Department Care Team ([facility] Contact Info) Description 08/10/2023 Orders Only [facility] CHC MED & PEDS 505 [place], [place] [phone] Laura Chapa MD 505 [place] [address] Renal insufficiency (Primary Dx) Social History Tobacco [...] documented as of this encounter Care Teams Environmental Attorney Relationship Specialty Start Date End Date Laura Chapa MD [address] [place] [address] PCP - General Family Medicine 10/16/18 [facility] 08/09/25 documented as of this encounter
--- OUTSIDE RECORDS SUMMARY | 2025-08-15 19:43 | XMS_ITS | Encounter Summary ---
Author Organization [employer] Address [address] [facility] 7t [place] [address] Care Team Providers Care Cashier Checker Name Role Phone Laura Chapa MD Primary Care Provider [phone] Reason for Visit * Reason Comments Med Refill Encounter Details Date Type Department Care Team ([facility] Contact Info) Description 02/14/2024 Refill [facility] CHC MED & PEDS [address] [place] [address] Laura Chapa MD 505 [place] [address] Social History Tobacco Use Types Packs/Day Years [...] documented as of this encounter Care Teams Cashier Checker Relationship Specialty Start Date End Date Laura Chapa MD [address] [place] [address] PCP - General Family Medicine 10/16/18 Ros[facility] Services 08/09/25 documented as of this encounter
--- OUTSIDE RECORDS SUMMARY | 2025-08-15 19:43 | XMS_ITS | Encounter Summary ---
Author Organization [employer] Address [address] [facility] 7t [place] [address] Care Team Providers Care Senior Analyst Market Intelligence Name Role Phone Laura Chapa MD Primary Care Provider [phone] Reason for Visit * Reason Onset Date Comments Hospital Follow-up 08/07/2025 Encounter Details Date Type Department Care Team ([facility] Contact Info) Description 08/07/2025 Telephone [facility] MEDICINE [address] [place] [phone] Laura Chapa MD 505 [place], [place] [phone] Hospital Follow-up Social History Tobacco Use Types Packs/Day Years [...] encounter Miscellaneous Notes * Telephone Encounter - Helga Velez - 08/07/2025 1:02 PM EDT Tc from pt requesting a HDF appt. Hospital: [facility] Date of admission: 06/24 Discharge date: 08/08 Diagnosed: Depression To Contact Anneliese [phone] *Send message to [place] Clinical Care Coordinators documented in this encounter Plan of Treatment Not on file documented as of this encounter Visit Diagnoses Not on filedocumented in this encounter Additional Health Concerns Assessment Noted Time PHQ-9 Depression Total Score: 0 06/19/20 10:59 AM EDT documented as of this encounter Care Teams Senior Analyst Market Intelligence Relationship Specialty Start Date End Date Laura Chapa MD [address] [place] [address] PCP - General Family Medicine 10/16/18 [facility] 08/09/25 documented as of this encounter
--- OUTSIDE RECORDS SUMMARY | 2025-08-15 19:43 | XMS_ITS | Encounter Summary ---
Author Organization [employer] Address 75 [facility] 7t [place] [address] Care Team Providers Care Electrician Front Name Role Phone Laura Chapa MD Primary Care Provider [phone] Reason for Visit * Reason Comments Med Refill Encounter Details Date Type Department Care Team ([facility] Contact Info) Description 06/13/2025 Refill [facility] CHC MED & PEDS [address] [place] [address] Alee Colin MD 505 [place] [address] Social History Tobacco Use Types Packs/Day Years [...] as of this encounter Care Teams Electrician Front Relationship Specialty Start Date End Date Laura Chapa MD [address] [place] [address] PCP - General Family Medicine 10/16/18 [facility]ario [facility] Health Services 08/09/25 documented as of this encounter
--- OUTSIDE RECORDS SUMMARY | 2025-08-15 19:43 | XMS_ITS | Clinical Summary ---
Author Organization [facility] Address [address] [facility] [address] [place] [address] Phone Care Team Providers Care Auto Body Builder Apprentice Name Role Phone Laura Chapa MD Primary Care Provider [phone] Allergies Active Allergy Reactions Criticality Noted Date [...] Active Problems Problem Noted Date Diagnosed Date [employer] adverse reaction 02/04/2024 Stage 3a chronic kidney [...] Medicaid [place] Care Teams Auto Body Builder Apprentice Relationship Specialty Start Date End Date Laura Chapa MD [address] PCP - General Internal Medicine 11/06/23
--- OUTSIDE RECORDS SUMMARY | 2025-08-15 19:43 | XMS_ITS | Encounter Summary ---
Author Organization [employer] Address [address] [facility] 7t [place] [address] Care Team Providers Care Back End Engineer Name Role Phone Laura Chapa MD Primary Care Provider [phone] Reason for Visit * Reason Comments Med Refill Encounter Details Date Type Department Care Team ([facility] Contact Info) Description 06/09/2025 Refill [facility] CHC MED & PEDS [address] [place] [address] Alee Colin MD 505 [place] [address] Social History Tobacco Use Types Packs/Day Years [...] documented as of this encounter Care Teams Back End Engineer Relationship Specialty Start Date End Date Laura Chapa MD [address] [place] [address] PCP - General Family Medicine 10/16/18 [facility]ario [facility] Services 08/09/25 documented as of this encounter
--- OUTSIDE RECORDS SUMMARY | 2025-08-15 19:43 | XMS_ITS | Encounter Summary ---
Author Organization [employer] Address [address] [facility] 7t [place] [address] Care Team Providers Care Retail Manager Name Role Phone aLura Chapa MD Primary Care Provider [phone] Reason for Visit * Reason Onset Date Comments call back needed 02/19/2025 Encounter Details Date Type Department Care Team ([facility] st Contact Info) Description 02/19/2025 Telephone [facility] MEDICINE [address] [place] [address] Laura Chapa MD 505 [place], [place] [phone] call back needed Social History Tobacco Use [...] documented as of this encounter Care Teams Retail Manager Relationship Specialty Start Date End Date Laura Chapa MD [address] [place] [address] PCP - General Family Medicine 10/16/18 [facility] 08/09/25 documented as of this encounter
--- OUTSIDE RECORDS SUMMARY | 2025-08-15 19:43 | XMS_ITS | Encounter Summary ---
Author Organization [employer] Address 75 [facility] 7t [place] [address] Care Team Providers Care Juice Packaging Machines Setter Name Role Phone Laura Chapa MD Primary Care Provider [phone] Reason for Visit * Reason Comments Med Refill Encounter Details Date Type Department Care Team ([facility] Contact Info) Description 12/08/2023 Refill [facility] CHC MED & PEDS [address] [place] [address] Laura Chapa MD 505 [place] [address] Social History Tobacco Use Types Packs/Day Years [...] documented as of this encounter Care Teams Juice Packaging Machines Setter Relationship Specialty Start Date End Date Laura Chapa MD [address] [place] [address] PCP - General Family Medicine 10/16/18 [facility] Health Services 08/09/25 documented as of this encounter
--- OUTSIDE RECORDS SUMMARY | 2025-08-15 19:43 | XMS_ITS | Encounter Summary ---
Author Organization [employer] Address 75 [facility] 7t [place] [address] Care Team Providers Care Pattern Developer Name Role Phone Laura Chapa MD Primary Care Provider [phone] Encounter Details Date Type Department Care Team ([facility] Contact Info) Description 11/02/2023 Orders Only [facility] CHC MED & PEDS [address] [place] [address] Laura Chapa MD [address] [place] [address] Social History Tobacco Use Types Packs/Day Years [...] documented as of this encounter Care Teams Pattern Developer Relationship Specialty Start Date End Date Laura Chapa MD 505 [place] [address] PCP - General Family Medicine 10/16/18 Rosario [facility] Health Services 08/09/25 documented as of this encounter
--- OUTSIDE RECORDS SUMMARY | 2025-08-15 19:43 | XMS_ITS | Encounter Summary ---
Author Organization [employer] Address [address] [facility] 7t [place] [address] Care Team Providers Care Discharge Rn Name Role Phone Laura Chapa MD Primary Care Provider [phone] Encounter Details Date Type Department Care Team (Latest Contact Info) Description 08/14/2025 Travel Social History Tobacco Use Types Packs/Day [...] documented as of this encounter Care Teams Discharge Rn Relationship Specialty Start Date End Date Laura Chapa MD 505 [facility] [place] [address] PCP - General Family Medicine 10/16/18 [facility] 08/09/25 documented as of this encounter
[2025-08-15 19:50] LABS: MANUAL DIFF FLAG NO
[2025-08-15 19:51] LABS: Hematocrit 33.3 % (37.0-47.0); Hemoglobin 11.2 g/dl (12.0-16.0); Imm Gran Abs Auto 0.02 X10*3/uL (0.00-0.03); Imm Gran Pct Auto 0.3 % (0.0-0.4); Lymphocytes Absolute Auto 1.8 X10*3/uL (1.2-4.9); Mean Corpuscular HGB Conc 33.6 g/dl (31.0-35.0); Mean Corpuscular Hemoglobin 29.9 pg (27.0-33.0); Mean Corpuscular Volume 88.8 fL (80.0-98.0); NRBC Abs Auto 0.000 X10*3/uL (0.0-0.012); NRBC Pct Auto 0.0 /100WBC (0.0-0.2); Platelet Count 228 X10*3/uL (160-400); Red Blood Count 3.75 X10*6/uL (4.20-5.50); White Blood Count 6.2 X10*3/uL (4.8-10.8)
[2025-08-15 20:26] VITALS: BP 126/62; PULSE 65; RESP 14; TEMP 36.6; O2SAT 98
[2025-08-15 21:00] LABS: Alanine Aminotransferase 20 U/L (0-31); Albumin Level 4.3 g/dL (3.5-5.0); Alkaline Phosphatase 64 U/L (39-117); Anion Gap 12 (12-20); Aspartate Amino Transferase 26 U/L (5-31); Blood Urea Nitrogen 19 mg/dL (9-16); Calcium 9.2 mg/dL (8.4-10.2); Carbon Dioxide 28 mmol/L (22-29); Chloride 108 mmol/L (96-108); Creatinine Clr Calc Pharmacy 29.5; Estimated Glomerular Filt Rate 36; Potassium 3.6 mmol/L (3.3-5.1); Sodium 144 mmol/L (135-145); Total Protein 6.4 g/dL (6.5-8.0)
--- NOTE | 2025-08-15 22:13 | ED.GIBLEED ---
HPI - GI Bleed General Chief complaint: GI Bleed Stated complaint: Sudden onset rectal bleeding Time Seen by Provider: 08/15/25 21:51 Source: patient Mode of arrival: ambulatory Limitations: no limitations History of Present Illness ED Provider: Dr. Shantel Hernandez HPI Narrative: Patient comes to the emergency room complaining of rectal bleeding. Patient states that yesterday she noticed that she passed blood clots. Patient thought that she was having a bowel movement but it was only blood. Patient denies constipation or diarrhea. Just prior to arrival, patient states that she was at a friend's house, thought that she needed to have a bowel movement. Patient went to the bathroom and passed a large amount of blood clots per rectum. Patient states that she does not have any abdominal pain at all. Patient is on blood thinners. Patient denies chest pain or shortness of breath. Related Data Previous Rx's ?Medication ?Instructions ?Recorded acetaminophen 650 mg 650 mg PO Q8H PRN Pain #90 tabs 08/07/25 tablet,extended release albuterol sulfate 90 mcg/actuation 1 inh inhalation QID PRN 08/07/25 aerosol inhaler wheezing/SOB #6.7 grams hydroxyzine HCl 25 mg tablet 25 mg PO BID PRN Anxiety #60 tabs 08/07/25 levothyroxine 50 mcg tablet 50 mcg PO DAILY@0600 #30 tabs 08/07/25 lidocaine 5 % topical patch 1 patch topical DAILY PRN Pain #30 08/07/25 ea midodrine 5 mg tablet 5 mg PO TID@0900,1300,1700 #90 tabs 08/07/25 mirtazapine 15 mg tablet 15 mg PO BEDTIME #30 tabs 08/07/25 sertraline 100 mg tablet 100 mg PO DAILY #30 tabs 08/07/25 tramadol 50 mg tablet 25 mg (1/2 x 50 mg) PO Q4H PRN mod 08/07/25 to severe pain #14 tabs brexpiprazole 0.5 mg tablet 0.5 mg PO BEDTIME 30 days #30 tabs 08/08/25 (Rexulti) Allergies Allergy/AdvReac Type Severity Reaction Status Date / Time penicillin V Allergy Unknown Unknown Verified 08/15/25 19:32 Review of Systems Review of Systems: Constitutional : No Weight loss, No Fever, No Chills, No Night Sweats, No Fatigue, No Malaise ENT/Mouth : No Hearing loss, No Ear Pain, No Nasal Congestion, No Sinus Pain, No Hoarseness, No sore throat, No Rhinorrhea, No Swallowing Difficulty Eyes: No Eye Pain, No Swelling, No Redness, No Foreign Body, No Discharge, No Vision Changes Cardiovascular : No Chest Pain, No SOB, No Dyspnea on Exertion, No Orthopnea, No Edema, No Palpitations Respiratory : No Cough, No Sputum, No Wheezing, No Smoke Exposure, No Dyspnea Gastrointestinal : No Nausea, No Vomiting, No Diarrhea, No Constipation, denies abdominal pain, complaining of bright red blood per rectum for 2 days Genitourinary : no irregular bleeding, No Dysuria, No Urinary Frequency, No Hematuria, No Urinary Incontinence, No Urgency, No Flank Pain, No Urinary Flow Changes, No Hesitancy Musculoskeletal : No joint pain, No Myalgias, No Joint Swelling Skin : No Skin Lesions, No rash Neuro : No Weakness, No Numbness, No Paresthesias, No Loss of Consciousness, No Dizziness, No Headache Psych : No Anxiety/Panic, No Depression, No SI/HI/AH/VH, No Social Issues, Heme/Lymph: No Bruising, No Bleeding,No Lymphadenopathy Endocrine : No Polyuria, No Polydipsia, No Temperature Intolerance [facility] Past Medical History Medical History Asthma Hypothyroid Bipolar disorder Osteoarthritis of right hip Family History Family History (Updated 08/11/25 @ 13:38 by Claire Olivas CNP) Sister Dementia Social History Social History Household Members: Significant Other Housing: House Alcohol intake: former Comment: 5 minutes Patient Tobacco Use Status: Tobacco use Unknown Smoked in Last 30 Days: No Use of substances other than those prescribed or required for medical reasons: No Advance Directives: No Advance Directives Information Provided: No Do you have a plan to hurt others: No Plan service: No Current occupational status: retired Sexual orientation: Straight/Heterosexual Physical Exam Exam: Exam: Appearance: Alert. Oriented X3. No acute distress. Eyes: Pupils equal, round and reactive to light. ENT: Pharynx normal. Neck: Normal inspection. Neck supple. No lymph nodes noted. No crepitus CVS: Normal heart rate and rhythm. Pulses normal. Normal S1 and S2 Respiratory: No respiratory distress. Breath sounds normal. No Wheezing. No rales Abdomen: Soft and nontender. No rigidity. No distention. Patient has blood mixed with the stool., no obvious internal or external hemorrhoids Skin: Skin warm and dry. Normal skin color. Normal skin turgor. Extremities: No lower extremity edema. No Lacerations. No Rash Neuro: Oriented X 3. No motor deficit. No sensory deficit. Moving all extremities. No slurred speech. CN 2 through 12 grossly intact Psych: calm, cooperative, normal affect Vital Signs: Vital Signs: Last Vital Signs Temp 97.8 F 08/15/25 20:26 Pulse 65 08/15/25 20:26 Resp 14 08/15/25 20:26 BP 126/62 08/15/25 20:26 Pulse Ox 98 08/15/25 20:26 O2 Del Method Room Air 08/15/25 20:26 BMI result Body Mass Index 20.9 Course Course Course Narrative: all Of patient's labs pending Medical Decision Making Medical Decision Making [facility] Narrative: My interpretation of labs: Patient's white blood cell count 6.2. Patient's hemoglobin is 11.2, hematocrit 33.3, platelets 228. Patient's hemoglobin is decreased from previous hemoglobin level 1 month ago which was 12.1. However, patient has had episodes of anemia down to 10.1. My interpretation is chemistry, no significant abnormality patient's electrolytes. Patient's creatinine is slightly bumped at 1.44 On physical exam, patient had maroon-colored stool, no active GI bleed. Patient states she has not had any recent colonoscopies. I discussed the above-mentioned with Dr. Whiteside from the Medicine team, patient being admitted Admission/Observation Consideration of admission/observation: Escalation of care including admission/observation considered (Upper GI bleed, lower GI bleed, colitis, internal hemorrhoids) Lab Data [facility] Lab Attestation statement: I reviewed the patient's lab results. 08/15/25 19:46 08/15/25 20:38 Labs: Lab Results 08/15/25 08/15/25 Range/Units 19:46 20:38 WBC 6.2 (4.8-10.8) X10*3/uL RBC 3.75 L (4.20-5.50) X10*6/uL Hgb 11.2 L (12.0-16.0) g/dl Hct 33.3 L (37.0-47.0) % MCV 88.8 (80.0-98.0) fL MCH 29.9 (27.0-33.0) pg MCHC 33.6 (31.0-35.0) g/dl RDW 13.0 (11.0-16.0) % Plt Count 228 (160-400) X10*3/uL MPV 10.7 (9.4-12.3) fL Immature Gran % (Auto) 0.3 (0.0-0.4) % Neut % (Auto) 56.3 (45-73) % Lymph % (Auto) 29.2 (20-40) % [place] % (Auto) 11.0 (2-11) % Eos % (Auto) 2.4 (0-4) % Baso % (Auto) 0.8 (0-2) % Lymph # (Auto) 1.8 (1.2-4.9) X10*3/uL [place] # (Auto) 0.7 (0.1-1.2) X10*3/uL Eos # (Auto) 0.2 (0.0-0.4) X10*3/uL Baso # (Auto) 0.1 (0.0-0.2) X10*3/uL Abs Immat Gran (auto) 0.02 (0.00-0.03) X10*3/uL Absolute Neuts (auto) 3.5 (2.0-8.3) x10*3/uL Absolute Nucleated RBC 0.000 (0.0-0.012) X10*3/uL Nucleated RBC % (auto) 0.0 (0.0-0.2) /100WBC Sodium 144 (135-145) mmol/L Potassium 3.6 (3.3-5.1) mmol/L Chloride 108 (96-108) mmol/L Carbon Dioxide 28 (22-29) mmol/L Anion Gap 12 (12-20) BUN 19 H (9-16) mg/dL Creatinine 1.44 H (0.5-1.4) mg/dL Estim Creat Clear Calc 29.5 Estimated GFR 36 Random Glucose 90 (60-115) mg/dL Calcium 9.2 D (8.4-10.2) mg/dL Total Bilirubin 0.2 (0.0-1.0) mg/dL AST 26 (5-31) U/L ALT 20 (0-31) U/L Alkaline Phosphatase 64 (39-117) U/L Total Protein 6.4 L (6.5-8.0) g/dL Albumin 4.3 (3.5-5.0) g/dL Tests considered The following testing was considered but not selected: I considered getting a CT scan of the abdomen. However, this time, patient is completely stable, normal vitals, heart rate, on physical exam no active bleeding. No abdominal pain Critical Care Time Critical Care Time Critical Care Time: Yes Total Critical Care Time: 50 Attestation: I have personally provided critical care time. Time includes review of lab data, radiology results, discussion with consultants, and monitoring for potential decompensation. Intervention performed as documented. Discharge Plan Discharge Clinical Impression: GI bleed Patient Disposition: Admitted As Inpatient Print Language: Divehi
[2025-08-15 22:23] LABS: Appearance Urine Clear; Glucose Urine UA Negative (Negative); PH 8.5 (5.0-9.0); Specific Gravity - Urine 1.010 (1.005-1.025); UMIC TRIGGER UACC YES
[2025-08-15 22:26] LABS: OBS Int Ctl Valid YES; OBS1 NEGATIVE (NEGATIVE)
[2025-08-15 22:31] LABS: INTERNATIONAL NORM RATIO 1.0 (0.9-1.1); Prothrombin Time 11.1 SEC (10.9-12.4)
--- NOTE | 2025-08-15 22:57 | PM.IMHP ---
History of Present Illness Date of Service: 08/15/25 Attending physician on admission: Godfrey Dickson Chief Complaint: Rectal bleeding Maria Ines Chan is a 69 years old woman with past medical history significant for bipolar disorder, asthma, orthostatic hypotension on midodrine and hypothyroidism presents to the ED complaining of rectal bleeding x2. She denied any associated abdominal pain, nausea, vomiting, fever or chills. She denied any acute cardiopulmonary (except for occasional cough) or genitourinary symptoms. Denied use of blood thinners such as aspirin or any other NSAIDs. She denied history of GI bleeding or hemorrhoids. Never have had a upper endoscopy or colonoscopy. In the ED, she was found to have stable vital signs. Hemoglobin today is 11.2 (it was 12.1 in June of this year). Platelets are normal there is no leukocytosis. INR and PT are normal. BUN is 19 and creatinine 1.44. LFTs are normal. UA is unremarkable. Stool for occult blood is negative. ED tx: None. Review of Systems Review of Systems: All 12 systems were reviewed and normal except as noted in HPI. [facility] Medical History Asthma Hypothyroid Bipolar disorder Osteoarthritis of right hip Family History (Updated 08/11/25 @ 13:38 by Claire Olivas CNP) Sister Dementia Social History Household Members: Significant Other Housing: House Alcohol intake: former Comment: 5 minutes Patient Tobacco Use Status: Tobacco use Unknown Smoked in Last 30 Days: No Use of substances other than those prescribed or required for medical reasons: No Advance Directives: No Advance Directives Information Provided: No Do you have a plan to hurt others: No Plan service: No Current occupational status: retired Sexual orientation: Straight/Heterosexual Meds Allergies Allergy/AdvReac Type Severity Reaction Status Date / Time penicillin V Allergy Unknown Unknown Verified 08/15/25 19:32 Active Medications: Current Medications Acetaminophen (Acetaminophen 325 Mg Tablet) 650 mg PO Q6H PRN PRN Reason: Pain, Mild 1-3,fever,headache Calcium Carbonate (Calcium Carbonate 750 Mg Tab.Chew) 750 mg PO Q4H PRN PRN Reason: Heartburn Lactated Ringer's (Lr) 1,000 mls @ 80 mls/hr IVCONT .[id number] [facility] Stop: 08/16/25 11:29 Lorazepam (Lorazepam 1 Mg Tablet) 1 mg PO ONCE PRN PRN Reason: anxiety Magnesium Hydroxide (Milk Of Magnesia 30 Ml Oral.Susp) 30 ml PO DAILY PRN PRN Reason: Constipation Melatonin (Melatonin 3 Mg Tablet) 6 mg PO BEDTIME PRN PRN Reason: Insomnia Sodium Chloride (0.9 % Sodium Chloride Flush 3 Ml Syringe) 3 ml IVFLUSH QSHIFT [facility] Physical Exam Vital Signs and Narrative: Vital Signs: Last Vital Signs Temp 97.8 F 08/15/25 20:26 Pulse 65 08/15/25 20:26 Resp 14 08/15/25 20:26 BP 126/62 08/15/25 20:26 Pulse Ox 98 08/15/25 20:26 O2 Del Method Room Air 08/15/25 20:26 BMI result Body Mass Index 20.9 General: Alert, oriented, in no acute distress. Well nourished and cooperative. Afebrile. Anxious. HEENT: Head normocephalic, atraumatic. PER, EOMI. Sclerae anicteric, conjunctiva clear. Neck: Supple. Heart: RRR, no murmurs, rubs or gallops. Lungs: Clear to auscultation bilaterally. No wheezes, rales, or rhonchi. Normal respiratory effort. Abdomen: Soft, non tenderness, nondistended, normoactive bowel sounds. No hepatosplenomegaly, masses or masses. Extremities: No calf tenderness bilaterally, no swelling Musculoskeletal: Full range of motion. No joint swelling, deformity, or tenderness. Normal muscle tone and strength. Skin: Warm/Dry. No pallor. No jaundice. Neurologic: Alert & oriented x4. Moving all extremities spontaneously. Normal speech. Psychological: Anxious mood and affect. Thought process coherent. Results Labs 08/15/25 19:46 08/15/25 20:38 Labs: Laboratory Results - last 24 hr 08/15/25 08/15/25 08/15/25 19:46 20:38 21:58 MCV 88.8 MCH 29.9 MCHC 33.6 RDW 13.0 Plt Count 228 MPV 10.7 Immature Gran % (Auto) 0.3 Neut % (Auto) 56.3 Lymph % (Auto) 29.2 [place] % (Auto) 11.0 Eos % (Auto) 2.4 Baso % (Auto) 0.8 Lymph # (Auto) 1.8 [place] # (Auto) 0.7 Eos # (Auto) 0.2 Baso # (Auto) 0.1 Abs Immat Gran (auto) 0.02 Absolute Neuts (auto) 3.5 Absolute Nucleated RBC 0.000 Nucleated RBC % (auto) 0.0 PT INR Anion Gap 12 Estim Creat Clear Calc 29.5 Estimated GFR 36 Random Glucose 90 Calcium 9.2 D Total Bilirubin 0.2 AST 26 ALT 20 Alkaline Phosphatase 64 Total Protein 6.4 L Albumin 4.3 Urine Color Yellow Urine Appearance Clear Urine pH 8.5 Ur Specific [place] 1.010 Urine Protein Negative Urine Glucose (UA) Negative Urine Ketones Negative Urine Blood Negative Urine Nitrite Negative Ur Leukocyte Esterase Trace H Urine RBC 0-2 Urine WBC 0-5 Ur Squamous Epith Cells 0-2 Urine Bacteria None Seen Hyaline Casts 0-2 Stool Occult Blood 08/15/25 08/15/25 22:09 22:11 MCV MCH MCHC RDW Plt Count MPV Immature Gran % (Auto) Neut % (Auto) Lymph % (Auto) [place] % (Auto) Eos % (Auto) Baso % (Auto) Lymph # (Auto) [place] # (Auto) Eos # (Auto) Baso # (Auto) Abs Immat Gran (auto) Absolute Neuts (auto) Absolute Nucleated RBC Nucleated RBC % (auto) PT 11.1 INR 1.0 Anion Gap Estim Creat Clear Calc Estimated GFR Random Glucose Calcium Total Bilirubin AST ALT Alkaline Phosphatase Total Protein Albumin Urine Color Urine Appearance Urine pH Ur Specific [place] Urine Protein Urine Glucose (UA) Urine Ketones Urine Blood Urine Nitrite Ur Leukocyte Esterase Urine RBC Urine WBC Ur Squamous Epith Cells Urine Bacteria Hyaline Casts Stool Occult Blood NEGATIVE Assessment and Plan (1) GI bleed: Qualifiers: GI bleed type/associated pathology: anorectal hemorrhage Qualified Code(s): K62.5 - Hemorrhage of anus and rectum Status: Acute (2) Hypothyroid: Qualifiers: Hypothyroidism type: acquired Qualified Code(s): E03.9 - Hypothyroidism, unspecified Status: Acute (3) Bipolar disorder with depression: Status: Acute Plan Maria Ines Chan is a 69 y/o woman who presents with: Acute blood loss anemia (Hgb 12.1 --> 11.2) due to rectal bleeding (2 episodes), differential: Diverticuli, hemorrhoids, polyps. Continue to monitor H&H. IV fluids. Obtain abdominal pelvis CT scan. BP transfusion if H&H > 7. GI consult. History of orthostatic hypotension. Continue midodrine. Hypothyroidism, acquired. Continue levothyroxine. Bipolar disorder. Continue home meds. Mild persistent asthma. Not in acute exacerbation. Albuterol nebs as needed. Code status: Full DVT prophylaxis: SCDs only due to rectal bleeding Patient will need hospitalization for at least 2 midnights for rectal bleeding associated with worsening anemia management with continuous monitoring of H&H, possible requirements of PRBC transfusions and evaluation by subspecialty.. Quality Stroke Does the patient have a stroke diagnosis?: No VTE Prior VTE?: No VTE Risk Level:: Medical - moderate - high VTE Device Contraindication: N/A - Device Ordered VTE Drug Contraindication: Treatment Not Indicated
[2025-08-15 23:21] VITALS: BP 117/65
[2025-08-16] MEDS: Lactated Ringers 1,000 ML 80 ML IVCONT (00:55)
[2025-08-16 01:46] LABS: Hematocrit 31.0 % (37.0-47.0); Hemoglobin 10.4 g/dl (12.0-16.0)
[2025-08-16 04:53] LABS: Hematocrit 32.2 % (37.0-47.0); Hemoglobin 10.7 g/dl (12.0-16.0); Mean Corpuscular HGB Conc 33.2 g/dl (31.0-35.0); Mean Corpuscular Hemoglobin 29.6 pg (27.0-33.0); Mean Corpuscular Volume 89.0 fL (80.0-98.0); NRBC Abs Auto 0.000 X10*3/uL (0.0-0.012); NRBC Pct Auto 0.0 /100WBC (0.0-0.2); Platelet Count 204 X10*3/uL (160-400); Red Blood Count 3.62 X10*6/uL (4.20-5.50); White Blood Count 5.9 X10*3/uL (4.8-10.8)
[2025-08-16 05:07] LABS: Anion Gap 12 (12-20); Blood Urea Nitrogen 18 mg/dL (9-16); Calcium 8.6 mg/dL (8.4-10.2); Carbon Dioxide 24 mmol/L (22-29); Chloride 111 mmol/L (96-108); Creatinine Clr Calc Pharmacy 38.0; Estimated Glomerular Filt Rate 48; Potassium 3.8 mmol/L (3.3-5.1); Sodium 143 mmol/L (135-145)
[2025-08-16 07:50] VITALS: BP 131/71; PULSE 60; RESP 12; O2SAT 93
[2025-08-16 09:29] VITALS: BMI 19.6
[2025-08-16 10:07] VITALS: BP 127/58; PULSE 68; RESP 18; TEMP 36.2; O2SAT 98
[2025-08-16 11:13] VITALS: BP 118/58; PULSE 59; RESP 16; TEMP 36; O2SAT 98
--- NOTE | 2025-08-16 11:18 | PM.GICN ---
History of Present Illness Data of Consult Service Date: 08/16/25 Requesting physician: Godfrey Dcikson Primary Care Provider: Laura Chapa MD HPI Reason for consult: Rectal bleeding 69-year-old female with medical history of asthma, bipolar disorder, hypothyroidism, who presented to the hospital for a few episodes of rectal bleeding at home. Patient reports sudden onset on the day of presentation. Reports having hamburger earlier that day and is unsure if thats what triggered her symptoms. Had multiple episodes of loose BMs with blood which prompted her visit to ER. Vitals have remained stable. Labs with slightly low H&H of 10.7 and 32.2 compared to baseline of 12.1 and 34.7, anemia is normocytic. Chem 7 with initial KELLIE that has now resolved. Surprisingly stool occult blood was negative. Patient has never had a colonoscopy. She lives at home by herself. Review of Systems Review of Systems: Yes all other systems are reviewed and are negative PMFSH Past Medical History Medical History Asthma Hypothyroid Bipolar disorder Osteoarthritis of right hip Family History Family History (Updated 08/11/25 @ 13:38 by Claire Olvias CNP) Sister Dementia Social History Social History Household Members: None Housing: House Do you presently have visiting nurse or other home services: Yes Alcohol intake: former Comment: 5 minutes Patient Tobacco Use Status: Never used Tobacco Second Hand Smoke Exposure: No service: No Current occupational status: retired Sexual orientation: Straight/Heterosexual Meds Allergies Allergy/AdvReac Type Severity Reaction Status Date / Time penicillin V Allergy Unknown Unknown Verified 08/15/25 19:32 Active Medications: Current Medications Acetaminophen (Acetaminophen 325 Mg Tablet) 650 mg PO Q6H PRN PRN Reason: Pain, Mild 1-3,fever,headache Last Admin: 08/15/25 23:21 Dose: 650 mg Albuterol Sulfate (Albuterol Sulfate (0.083%) 2.5 Mg/3 Ml Vial.Neb) 2.5 mg INHALE Q3H PRN PRN Reason: Wheezing Calcium Carbonate (Calcium Carbonate 750 Mg Tab.Chew) 750 mg PO Q4H PRN PRN Reason: Heartburn Lactated Ringer's (Lr) 1,000 mls @ 80 mls/hr IVCONT .[id number] [facility] Stop: 08/16/25 11:29 Last Admin: 08/16/25 00:55 Dose: 80 mls/hr Lorazepam (Lorazepam 1 Mg Tablet) 1 mg PO ONCE PRN PRN Reason: anxiety Last Admin: 08/15/25 23:21 Dose: 1 mg Magnesium Hydroxide (Milk Of Magnesia 30 Ml Oral.Susp) 30 ml PO DAILY PRN PRN Reason: Constipation Melatonin (Melatonin 3 Mg Tablet) 6 mg PO BEDTIME PRN PRN Reason: Insomnia Sodium Chloride (0.9 % Sodium Chloride Flush 3 Ml Syringe) 3 ml IVFLUSH QSHIFT [facility] Last Admin: 08/16/25 07:24 Dose: Not Given Physical Exam Exam: Exam: No apparent distress Elderly female Nonicteric Abdomen soft, nondistended, nontender Alert and oriented x3, no focal deficits Vital Signs: Vital Signs: Last Vital Signs Temp 96.8 F 08/16/25 11:13 Pulse 59 08/16/25 11:13 Resp 16 08/16/25 11:13 BP 118/58 L 08/16/25 11:13 Pulse Ox 98 08/16/25 11:13 O2 Del Method Room Air 08/16/25 11:13 BMI result Body Mass Index 19.6 Results Labs 08/16/25 04:39 08/16/25 04:39 Labs: Short CBC 08/15/25 08/16/25 08/16/25 Range/Units 19:46 01:08 04:39 WBC 6.2 5.9 (4.8-10.8) X10*3/uL Hgb 11.2 L 10.4 L 10.7 L (12.0-16.0) g/dl Hct 33.3 L 31.0 L 32.2 L (37.0-47.0) % Plt Count 228 204 (160-400) X10*3/uL BMP 08/15/25 08/16/25 20:38 04:39 Sodium 144 143 Potassium 3.6 3.8 Chloride 108 111 H Carbon Dioxide 28 24 BUN 19 H 18 H Creatinine 1.44 H 1.12 Calcium 9.2 D 8.6 D Liver Function 08/15/25 Range/Units 20:38 Total Bilirubin 0.2 (0.0-1.0) mg/dL AST 26 (5-31) U/L ALT 20 (0-31) U/L Alkaline Phosphatase 64 (39-117) U/L Albumin 4.3 (3.5-5.0) g/dL Urine 08/15/25 Range/Units 21:58 Urine Color Yellow Urine Appearance Clear Urine pH 8.5 (5.0-9.0) Ur Specific [place] 1.010 (1.005-1.025) Urine Protein Negative (Neg-Trace) mg/dL Urine Glucose (UA) Negative (Negative) mg/dL Assessment and Plan (1) GI bleed: Qualifiers: GI bleed type/associated pathology: anorectal hemorrhage Qualified Code(s): K62.5 - Hemorrhage of anus and rectum Status: Acute Plan Differentials include infectious colitis, hemorrhoidal bleeding, proctitis, anal fissure-although less likely given absence of pain, mass. Will need a diagnostic colonoscopy, which can also be set up as outpatient. Plan: -monitor H&H for 24 hours, and if remained stable, patient can be discharged with close follow-up for colonoscopy -however if continues to have persistent significant rectal bleeding, this should be pursued during this admission Thank you for allowing me to participate in her care. Please do not hesitate to reach out for questions or concerns. Procedures Date of Service Date of Service: 08/16/25
--- NOTE | 2025-08-16 12:15 | PHA.MEDREC ---
Pharmacy Consult ? Medication Reconciliation Pharmacy has completed the medication reconciliation. Spoke to patient, she doesn't know the names of medications, only that she last took them yestesday afternoon 08/15/25 and asked that I call her boyfriend Carl James [phone]. I then spoke to Mr. James over the phone who said pt was recently discharged from here on 08/08/25 and the medications from the discharge packet is what she is currently taking.
--- NOTE | 2025-08-16 13:48 | HO.PM.IMPN ---
Subjective Subjective Date of Service: 08/16/25 Interval History: No acute issues overnight. No further rectal bleeding Review of Systems Denies chest pain Denies shortness of breath Denies nausea vomiting diarrhea Denies fever chills Physical Exam Vital Signs: Vital Signs: Last Vital Signs Temp 96.8 F 08/16/25 11:13 Pulse 59 08/16/25 11:13 Resp 16 08/16/25 11:13 BP 118/58 L 08/16/25 11:13 Pulse Ox 98 08/16/25 11:13 O2 Del Method Room Air 08/16/25 11:13 BMI result Body Mass Index 19.6 Const: Other: Awake alert no acute distress Resp: Other: Clear to auscultation bilaterally no rales rhonchi or wheezes Cardio: Other: No S4; positive S1-S2; no S3 murmurs rubs or gallops GI: Other: Soft nontender nondistended normoactive bowel sounds Extrem: Other: No edema bilateral Objective Data Active Medications Acetaminophen (Acetaminophen 325 Mg Tablet) 650 mg PO Q6H PRN PRN Reason: Pain, Mild 1-3,fever,headache Last Admin: 08/15/25 23:21 Dose: 650 mg Documented By: JUSTO Albuterol Sulfate (Albuterol Sulfate (0.083%) 2.5 Mg/3 Ml Vial.Neb) 2.5 mg INHALE Q3H PRN PRN Reason: Wheezing Calcium Carbonate (Calcium Carbonate 750 Mg Tab.Chew) 750 mg PO Q4H PRN PRN Reason: Heartburn Lorazepam (Lorazepam 1 Mg Tablet) 1 mg PO ONCE PRN PRN Reason: anxiety Last Admin: 08/15/25 23:21 Dose: 1 mg Documented By: JUSTO Magnesium Hydroxide (Milk Of Magnesia 30 Ml Oral.Susp) 30 ml PO DAILY PRN PRN Reason: Constipation Melatonin (Melatonin 3 Mg Tablet) 6 mg PO BEDTIME PRN PRN Reason: Insomnia Sodium Chloride (0.9 % Sodium Chloride Flush 3 Ml Syringe) 3 ml IVFLUSH QSHIFT KIRSTIE Last Admin: 08/16/25 07:24 Dose: Not Given Documented By: CHARLIE Non-Admin Reason: IV Running Labs 08/16/25 04:39 08/16/25 04:39 Labs: Laboratory Results - last 24 hr 08/15/25 08/15/25 08/15/25 19:46 20:38 21:58 MCV 88.8 MCH 29.9 MCHC 33.6 RDW 13.0 Plt Count 228 MPV 10.7 Immature Gran % (Auto) 0.3 Neut % (Auto) 56.3 Lymph % (Auto) 29.2 Cloud % (Auto) 11.0 Eos % (Auto) 2.4 Baso % (Auto) 0.8 Lymph # (Auto) 1.8 Cloud # (Auto) 0.7 Eos # (Auto) 0.2 Baso # (Auto) 0.1 Abs Immat Gran (auto) 0.02 Absolute Neuts (auto) 3.5 Absolute Nucleated RBC 0.000 Nucleated RBC % (auto) 0.0 PT INR Anion Gap 12 Estim Creat Clear Calc 29.5 Estimated GFR 36 Random Glucose 90 Calcium 9.2 D Total Bilirubin 0.2 AST 26 ALT 20 Alkaline Phosphatase 64 Total Protein 6.4 L Albumin 4.3 Urine Color Yellow Urine Appearance Clear Urine pH 8.5 Ur Specific [place] 1.010 Urine Protein Negative Urine Glucose (UA) Negative Urine Ketones Negative Urine Blood Negative Urine Nitrite Negative Ur Leukocyte Esterase Trace H Urine RBC 0-2 Urine WBC 0-5 Ur Squamous Epith Cells 0-2 Urine Bacteria None Seen Hyaline Casts 0-2 Stool Occult Blood 08/15/25 08/15/25 08/16/25 22:09 22:11 04:39 MCV 89.0 MCH 29.6 MCHC 33.2 RDW 13.0 Plt Count 204 MPV 10.8 Immature Gran % (Auto) Neut % (Auto) Lymph % (Auto) [place] % (Auto) Eos % (Auto) Baso % (Auto) Lymph # (Auto) Cloud # (Auto) Eos # (Auto) Baso # (Auto) Abs Immat Gran (auto) Absolute Neuts (auto) Absolute Nucleated RBC 0.000 Nucleated RBC % (auto) 0.0 PT 11.1 INR 1.0 Anion Gap 12 Estim Creat Clear Calc 38.0 Estimated GFR 48 Random Glucose 96 Calcium 8.6 D Total Bilirubin AST ALT Alkaline Phosphatase Total Protein Albumin Urine Color Urine Appearance Urine pH Ur Specific [place] Urine Protein Urine Glucose (UA) Urine Ketones Urine Blood Urine Nitrite Ur Leukocyte Esterase Urine RBC Urine WBC Ur Squamous Epith Cells Urine Bacteria Hyaline Casts Stool Occult Blood NEGATIVE Assessment and Plan (1) GI bleed: Status: Acute (2) Hypothyroid: Status: Acute (3) Bipolar disorder with depression: Status: Acute Plan Maria Ines Chan is a 69 y/o woman who presents with: 1. Acute blood loss anemia -appreciate GI input -observe times 24 hours... Monitor for bloody stools -hemoglobin in a.m.. If stable may DC 2. History of orthostatic hypotension -continue midodrine 3. Bipolar disorder -stable and well compensated 4. Mild intermittent asthma -no acute issues -continue outpatient therapies Code status: Full DVT prophylaxis: SCDs only due to rectal bleeding Quality Stroke Does the patient have a stroke diagnosis?: No VTE Prior VTE?: No VTE Risk Level:: Medical - moderate - high VTE Device Contraindication: N/A - Device Ordered VTE Drug Contraindication: Treatment Not Indicated
[2025-08-16] MEDS: 0.9 % Sodium Chloride Flush 3 ML SYRINGE IVFLUSH ×2 (15:17→22:47)
[2025-08-16 15:44] VITALS: BP 120/66; PULSE 56; RESP 16; TEMP 36.3; O2SAT 98
--- NOTE | 2025-08-16 16:11 | MHC.CM.PN ---
Addendum entered by Ivana Parra 08/17/25 08:43: [facility] HAS CONFIRMED PT IS ACTIVE WITH THEM FOR MEDICATION ADMINISTRATION Original Note: CM MET WITH PT WHO REPORTS SHE LIVES ALONE SHE SAYS SHE HAS BEEN HAVING ALL KINDS OF PEOPLE COMING IN SINCE HER IPLOC DC, BUT SHE IS UNABLE TO SAY WHO THEY ARE OR WHERE THEY ARE FROM SHE SAYS HER SON WILL KNOW CM CALLED PTS SON/HCP TRINA [phone] HE SAYS PT HAS A NURSE THAT COMES DAILY TO ADMINISTER MEDS, HE IS UNSURE OF AGENCY PT USES A WALKER TO AMBULATE HCP ON FILE PCP: JAIDEN PRIETO IMM DELIVERED DCP: HOME RESUME [facility] WILL TRANSPORT AND REPORTS PT MUST BE HOME BY Monday SHE IS BEING ASSESSED TO MOVE [facility]
[2025-08-16 19:56] VITALS: BP 134/60; PULSE 56; RESP 18; TEMP 36.2; O2SAT 98
[2025-08-16 23:58] VITALS: BP 130/62; PULSE 74; RESP 18; TEMP 36.1; O2SAT 99
[2025-08-17 03:11] VITALS: BP 115/61; PULSE 70; RESP 18; TEMP 36.1; O2SAT 97
[2025-08-17 06:20] LABS: MANUAL DIFF FLAG NO
[2025-08-17 06:24] LABS: Hematocrit 33.3 % (37.0-47.0); Hemoglobin 11.2 g/dl (12.0-16.0); Imm Gran Abs Auto 0.01 X10*3/uL (0.00-0.03); Imm Gran Pct Auto 0.2 % (0.0-0.4); Lymphocytes Absolute Auto 1.5 X10*3/uL (1.2-4.9); Mean Corpuscular HGB Conc 33.6 g/dl (31.0-35.0); Mean Corpuscular Hemoglobin 30.3 pg (27.0-33.0); Mean Corpuscular Volume 90.0 fL (80.0-98.0); NRBC Abs Auto 0.000 X10*3/uL (0.0-0.012); NRBC Pct Auto 0.0 /100WBC (0.0-0.2); Platelet Count 196 X10*3/uL (160-400); Red Blood Count 3.70 X10*6/uL (4.20-5.50); White Blood Count 5.4 X10*3/uL (4.8-10.8)
[2025-08-17 06:46] LABS: Alanine Aminotransferase 15 U/L (0-31); Albumin Level 4.1 g/dL (3.5-5.0); Alkaline Phosphatase 59 U/L (39-117); Anion Gap 11 (12-20); Aspartate Amino Transferase 21 U/L (5-31); Blood Urea Nitrogen 14 mg/dL (9-16); Calcium 9.0 mg/dL (8.4-10.2); Carbon Dioxide 24 mmol/L (22-29); Chloride 110 mmol/L (96-108); Creatinine Clr Calc Pharmacy 36.2; Estimated Glomerular Filt Rate 47; Potassium 4.1 mmol/L (3.3-5.1); Sodium 141 mmol/L (135-145); Total Protein 6.1 g/dL (6.5-8.0)
[2025-08-17] MEDS: 0.9 % Sodium Chloride Flush 3 ML SYRINGE IVFLUSH (07:47)
[2025-08-17 08:00] VITALS: BP 140/63; PULSE 68; RESP 14; TEMP 36.3; O2SAT 99
--- NOTE | 2025-08-17 11:06 | PM.DS ---
DS: Providers Provider Date of Service: 08/17/25 Date of admission: 08/15/25 22:52 Date of discharge: 08/17/25 Primary care physician: Laura Chapa MD Consults: 08/15/25 22:55 Consult to Gastroenterology Routine Consulting Provider: [facility] [place] [facility] Reason for consultation: rectal bleeding Has provider been notified: No DS: Diagnosis Discharge Diagnosis (1) GI bleed: Status: Acute DS: Summary Hospital Course Hospital Course: 69 years old woman with past medical history significant for bipolar disorder, asthma, orthostatic hypotension on midodrine and hypothyroidism presents to the ED complaining of rectal bleeding x2. She denied any associated abdominal pain, nausea, vomiting, fever or chills. She denied any acute cardiopulmonary (except for occasional cough) or genitourinary symptoms. Denied use of blood thinners such as aspirin or any other NSAIDs. She denied history of GI bleeding or hemorrhoids. Never have had a upper endoscopy or colonoscopy. In the ED, she was found to have stable vital signs. Hemoglobin today is 11.2 (it was 12.1 in June of this year). Platelets are normal there is no leukocytosis. INR and PT are normal. BUN is 19 and creatinine 1.44. LFTs are normal. UA is unremarkable. Stool for occult blood is negative. Hospital Course Patient admitted to general medical floor and seen in consultation by GI. GI recommended observing times 24 hours and falling repeat hemoglobin in a.m.. If no further activity can be discharged home with outpatient follow up. Patient did not have a stool while she was admitted under hemoglobin actually deyanira without intervention. At this time she is medically acceptable for discharge and can follow up as an outpatient for colonoscopy Time Attestation Discharge Coordination Time (in mins): 35 Quality: Safe Use of Opioids Does Pt have an Active Cancer Diagnosis on the Problem List?: No Quality: Stroke Does the patient have a stroke diagnosis?: No Physical Exam Vital Signs: Vital Signs: Last Vital Signs Temp 97.3 F 08/17/25 08:00 Pulse 68 08/17/25 08:00 Resp 14 08/17/25 08:00 BP 140/63 H 08/17/25 08:00 Pulse Ox 99 08/17/25 08:00 O2 Del Method Room Air 08/17/25 08:00 BMI result Body Mass Index 19.6 Const: Other: Awake alert no acute distress Resp: Other: Clear to auscultation bilaterally no rales rhonchi or wheezes Cardio: Other: No S4; positive S1-S2; no S3 murmurs rubs or gallops GI: Other: Soft nontender nondistended normoactive bowel sounds Extrem: Other: No edema bilateral DS: Data Data Completed and Pending Labs on day of discharge: Laboratory Results - last 24 hr 08/17/25 05:58 WBC 5.4 RBC 3.70 L Hgb 11.2 L Hct 33.3 L MCV 90.0 MCH 30.3 MCHC 33.6 RDW 12.9 Plt Count 196 MPV 10.7 Immature Gran % (Auto) 0.2 Neut % (Auto) 57.0 Lymph % (Auto) 27.1 [place] % (Auto) 8.9 Eos % (Auto) 6.1 H Baso % (Auto) 0.7 Lymph # (Auto) 1.5 [place] # (Auto) 0.5 Eos # (Auto) 0.3 Baso # (Auto) 0.0 Abs Immat Gran (auto) 0.01 Absolute Neuts (auto) 3.1 Absolute Nucleated RBC 0.000 Nucleated RBC % (auto) 0.0 Sodium 141 Potassium 4.1 Chloride 110 H Carbon Dioxide 24 Anion Gap 11 L BUN 14 Creatinine 1.14 Estim Creat Clear Calc 36.2 Estimated GFR 47 Fasting Glucose 93 Calcium 9.0 Total Bilirubin 0.2 AST 21 ALT 15 Alkaline Phosphatase 59 Total Protein 6.1 L Albumin 4.1 Discharge Plan Discharge Anticipated Discharge Date/Time: 08/17/25 11:04 Patient Disposition: Home, Self-Care Discharge Diagnosis: GI bleed Referrals: Laura Chapa MD [Primary Care Provider, Medical] - 1 Week Discharge Medications: Continued midodrine 5 mg Tablet 5 mg PO TID@0900,1300,1700 Qty: 90 0RF sertraline 100 mg Tablet 100 mg PO DAILY Qty: 30 0RF tramadol 50 mg Tablet 25 mg PO Q4H PRN (Reason: mod to severe pain) Qty: 14 0RF hydroxyzine HCl 25 mg Tablet 25 mg PO BID PRN (Reason: Anxiety) Qty: 60 0RF acetaminophen 650 mg Tablet Extended Release 650 mg PO Q8H PRN (Reason: Pain) Qty: 90 0RF levothyroxine 50 mcg tablet 50 mcg PO DAILY@0600 Qty: 30 0RF lidocaine 5 % adhesive patch,medicated 1 patch topical DAILY PRN (Reason: Pain) Qty: 30 0RF mirtazapine 15 mg Tablet 15 mg PO BEDTIME Qty: 30 0RF albuterol sulfate 90 mcg/actuation HFA aerosol inhaler 1 inh inhalation QID PRN (Reason: wheezing/SOB) Qty: 6.7 0RF Rexulti 0.5 mg tablet 0.5 mg PO BEDTIME 30 Days Qty: 30 0RF Discharge Orders: Discharge Order (Routine); Ordered 08/17/25 Ordered By: Jhony Whittaker Diet: Advance to usual diet Activity on Discharge: As tolerated Stand Alone Forms: Patient Portal Discharge page Print Language: [place] Care Plan Goals: Resume all meds as taken prior to hospitalization Health Concerns: Follow up with the PCP as scheduled Plan of Treatment: Follow up with GI; return if further bleeding Assessment: See discharge summary
[2025-08-17 12:00] VITALS: BP 109/56; PULSE 66; RESP 16; TEMP 36.2; O2SAT 99
== END 2025-08-17 12:22 | disposition home or self-care (01) | DRG 378 ==
LOC: HO.ED 22:27 → HO.EDOVER 22:57 → HO.S3 08-16 07:48
PROVIDERS: Admitting Provider Internal Medicine; Emergency Provider Emergency Medicine; PCP Pediatrics; Visit Provider Hospitalist
DX: K62.5 Hemorrhage of anus and rectum (principal); D62 Acute posthemorrhagic anemia; E03.9 Hypothyroidism, unspecified; F31.9 Bipolar disorder, unspecified; I95.1 Orthostatic hypotension; J45.30 Mild persistent asthma, uncomplicated; Z79.890 Hormone replacement therapy; Z79.899 Other long term (current) drug therapy
CPT/HCPCS: 36415; 74176; 80048; 80053; 81001; 82272; 85014; 85018; 85025; 85027; 85610; 99285; J7120

== ENCOUNTER 2025-08-15 22:52 | Outpatient (BNV) | payer MEDICARE, MEDICAID, SELFPAY | END 2025-08-16 | PROVIDERS: Admitting Provider Internal Medicine; Emergency Provider Emergency Medicine; PCP Pediatrics; Visit Provider General Practice | DX: K62.5 Hemorrhage of anus and rectum (principal) | CPT/HCPCS: 74176 ==

== ENCOUNTER → 2025-08-15 22:52 | Outpatient (BNV) | payer MEDICARE, MEDICAID, SELFPAY | PROVIDERS: Admitting Provider Internal Medicine; Emergency Provider Emergency Medicine; PCP Pediatrics; Visit Provider Internal Medicine | DX: K62.5 Hemorrhage of anus and rectum (principal) | CPT/HCPCS: 99222 ==

== ENCOUNTER → 2025-08-15 22:52 | Outpatient (BNV) | payer MEDICARE, MEDICAID, SELFPAY | PROVIDERS: Admitting Provider Internal Medicine; Emergency Provider Emergency Medicine; PCP Pediatrics; Visit Provider Internal Medicine | DX: K62.5 Hemorrhage of anus and rectum (principal); E03.9 Hypothyroidism, unspecified; F31.9 Bipolar disorder, unspecified | CPT/HCPCS: 99223; 99231; 99239 ==

== ENCOUNTER 2025-09-13 16:10 | Emergency (ER) | payer MEDICARE, MEDICAID, SELFPAY ==
--- OUTSIDE RECORDS SUMMARY | 2025-09-05 09:51 | XMS_ITS | Continuity of Care Document ---
Author Organization [facility] Address [address] [address] Phone Care Team Providers Care Manufacturing Tech Name Role Phone Lesli South NP Unavailable Unavailable Allergies, Adverse Reactions, Alerts Substance Reaction Status Criticality Penicillins Unknown Reaction Active No Informat ion Advance Directives Directive Yes / No Effective Date File Name No Information Encounters Encounter Description Practice Location Reason(s) For Visit Diagnoses Date Provider [facility], [address] [place] [address], [id number], [place] tel:[phone] [address] [place] [address] No Information [address] [place], [place], [id number], [place]. tel:[phone] Family History Family Member Type Diagnosis Age At Onset No Information Payers Payer name Insurance type Covered republican ID Authoriza tion(s) No Information Social History Type Description Quantity Date Captured Comments Sex Female Smoking Status No Information Chief Complaint And Reason For Visit No Information Plan Of Treatment Date Type Action Status Appointment Maria Ines Chan BOOKED- Appointment Maria Ines Chan BOOKED History Of Present Illness Encounter Date Complaint History Of Prese nt Illness No Information Instructions Date Instruction Additional Infor mation No Information Assessments Type Assessment Date No Information
[2025-09-13 16:20] VITALS: BP 113/62; PULSE 71; RESP 18; TEMP 36.5; O2SAT 96; BMI 20.5
--- NOTE | 2025-09-13 16:25 | ED.GENADULT ---
HPI - General Adult General Chief complaint: Nausea/Vomiting/Diarrhea Stated complaint: Black stool Time Seen by Provider: 09/13/25 18:08 History of Present Illness ED Provider: Nancy Jones NP HPI narrative: 69-year-old female with a medical history significant for a mild cognitive impairment, cerebellar ataxia presents to the ED for evaluation reporting chronic diarrhea ongoing for several months, now with noted black discolored stool ongoing for the past 1-2 days. Patient is not on anticoagulants. Denies any dizziness, lightheadedness. Denies any abdominal pain, nausea, vomiting, diarrhea or constipation. Does report baseline poor p.o. intake. No chest pain or pressure, shortness of breath. Her felt. No urinary complaints. Related Data Previous Rx's ?Medication ?Instructions ?Recorded acetaminophen 650 mg 650 mg PO Q8H PRN Pain #90 tabs 08/07/25 tablet,extended release albuterol sulfate 90 mcg/actuation 1 inh inhalation QID PRN 08/07/25 aerosol inhaler wheezing/SOB #6.7 grams hydroxyzine HCl 25 mg tablet 25 mg PO BID PRN Anxiety #60 tabs 08/07/25 levothyroxine 50 mcg tablet 50 mcg PO DAILY@0600 #30 tabs 08/07/25 lidocaine 5 % topical patch 1 patch topical DAILY PRN Pain #30 08/07/25 ea midodrine 5 mg tablet 5 mg PO TID@0900,1300,1700 #90 tabs 08/07/25 mirtazapine 15 mg tablet 15 mg PO BEDTIME #30 tabs 08/07/25 sertraline 100 mg tablet 100 mg PO DAILY #30 tabs 08/07/25 tramadol 50 mg tablet 25 mg (1/2 x 50 mg) PO Q4H PRN mod 08/07/25 to severe pain #14 tabs brexpiprazole 0.5 mg tablet 0.5 mg PO BEDTIME 30 days #30 tabs 08/08/25 (Rexulti) Allergies Allergy/AdvReac Type Severity Reaction Status Date / Time penicillin V Allergy Unknown Unknown Verified 09/13/25 16:25 Review of Systems Review of Systems: ROS is otherwise negative unless mentioned in HPI. PMFSH Past Medical History Medical History Asthma Hypothyroid Bipolar disorder Osteoarthritis of right hip Family History Family History (Updated 08/11/25 @ 13:38 by Claire Olivas CNP) Sister Dementia Social History Social History Household Members: None Housing: House Do you presently have visiting nurse or other home services: Yes Alcohol intake: former Comment: 5 minutes Patient Tobacco Use Status: Never used Tobacco Second Hand Smoke Exposure: No Advance Directives: Yes Advance Directives on File: Yes Advance Directives Date on File: 02/23/25 Do you have a plan to hurt others: No Plan service: No Current occupational status: retired Sexual orientation: Straight/Heterosexual Physical Exam ED Exam Exam: Nursing notes and vital signs reviewed. Constitutional: Well-appearing, NAD. Alert. Oriented X3. Eyes: Pupils equal, round and reactive to light. ENT: Pharynx normal. Neck: Normal inspection. Neck supple. CVS: Normal heart rate and rhythm. Pulses normal. Respiratory: No respiratory distress. Breath sounds normal. Abdomen: Soft and nontender, nondistended. +BSx4. GI: Normal rectal tone. One noted non-thrombosed external hemorrhoid. Skin: Skin warm and dry. Normal skin color. Extremities: No lower extremity edema. Neuro: Oriented X 3. No motor deficit. Vital Signs: Vital Signs - 24 hr 09/13/25 16:20 Temperature 97.7 F Pulse Rate 71 Respiratory Rate 18 Blood Pressure 113/62 Pulse Oximetry 96 Oxygen Delivery Method Room Air BMI result Body Mass Index 20.5 Course Course Course Narrative: This is a Rapid Medical Examination (RME) performed by Aileen Rene PA-C in triage. Full HPI, ROS, assessment and treatment plan per primary provider in the Main ED. Hx: 69 yo F here w/ diarrhea x weeks, now having dark tarry stools x1 week. no thinners. reports feeling lightheaded. no abd pain. called pcp, told to come here. Plan: labs, gi panel Medical Decision Making Medical Decision Making MDM Narrative: Clinically she appears well, has a benign abdominal exam, nontender to palpation, with normal rectal tone, and 1 noted external hemorrhoids that is not thrombosed, and not actively bleeding. She has mild cognitive impairment, reports about 1-3 days' worth of noted darker/black stools. Her H&H here has improved in comparison to previous, I have low clinical suspicion for a GI bleed. We will obtain a occult stool sample, which I obtained a rectally on exam, and I have sent to the lab. Currently pending this result. If positive, we will proceed with CT imaging of the abdomen and pelvis, though if negative will discharge home with outpatient follow up. Patient's boyfriend is at bedside to provide further history. 1900-- occult stool is negative for blood. This is likely not a GI bleed, she does not have any photos of the stool. I have recommended if this occurs again she takes a photo of it. Likely the stools are darker in color but not black. Given the absence of abdominal pain clinically and the benign abdominal exam, we will defer CT imaging at this time. Recommended close follow up with PCP outpatient, return precautions stress. She and her boyfriend are agreeable to plan of care. Differential Diagnosis Differential Diagnoses: The differential diagnosis associated with the presentation includes GI bleed, colitis, gastroenteritis Admission/Observation Consideration of admission/observation: Escalation of care including admission/observation considered (Not indicated) Lab Data MDM Lab Attestation statement: I reviewed the patient's lab results. (Improved in comparison to previous.) 09/13/25 16:38 09/13/25 16:38 Labs: Lab Results 09/13/25 09/13/25 Range/Units 16:38 18:43 WBC 7.0 (4.8-10.8) X10*3/uL RBC 4.35 (4.20-5.50) X10*6/uL Hgb 12.9 (12.0-16.0) g/dl Hct 37.9 (37.0-47.0) % MCV 87.1 (80.0-98.0) fL MCH 29.7 (27.0-33.0) pg MCHC 34.0 (31.0-35.0) g/dl RDW 12.8 (11.0-16.0) % Plt Count 206 (160-400) X10*3/uL MPV 11.1 (9.4-12.3) fL Immature Gran % (Auto) 0.3 (0.0-0.4) % Neut % (Auto) 58.4 (45-73) % Lymph % (Auto) 30.9 (20-40) % [place] % (Auto) 8.4 (2-11) % Eos % (Auto) 1.3 (0-4) % Baso % (Auto) 0.7 (0-2) % Lymph # (Auto) 2.2 (1.2-4.9) X10*3/uL [place] # (Auto) 0.6 (0.1-1.2) X10*3/uL Eos # (Auto) 0.1 (0.0-0.4) X10*3/uL Baso # (Auto) 0.1 (0.0-0.2) X10*3/uL Abs Immat Gran (auto) 0.02 (0.00-0.03) X10*3/uL Absolute Neuts (auto) 4.1 (2.0-8.3) x10*3/uL Absolute Nucleated RBC 0.000 (0.0-0.012) X10*3/uL Nucleated RBC % (auto) 0.0 (0.0-0.2) /100WBC Sodium 145 (135-145) mmol/L Potassium 4.0 (3.3-5.1) mmol/L Chloride 110 H (96-108) mmol/L Carbon Dioxide 24 (22-29) mmol/L Anion Gap 15 (12-20) BUN 22 H (9-16) mg/dL Creatinine 1.15 (0.5-1.4) mg/dL Estim Creat Clear Calc 37.0 Estimated GFR 47 Random Glucose 106 (60-115) mg/dL Calcium 9.9 D (8.4-10.2) mg/dL Magnesium 2.1 (1.6-2.6) mg/dL Total Bilirubin 0.3 (0.0-1.0) mg/dL AST 27 (5-31) U/L ALT 26 (0-31) U/L Alkaline Phosphatase 64 (39-117) U/L Total Protein 7.1 (6.5-8.0) g/dL Albumin 5.0 (3.5-5.0) g/dL Lipase 30 (8-78) U/L Stool Occult Blood NEGATIVE (NEGATIVE) Blood Type A Positive Antibody Screen NEGATIVE Independent Historian Clinical information obtained from an independent historian. History obtained from or confirmed by: Spouse External Record Review External record reviewed: Other (Prior ER visits.) Chronic Conditions Patient?s care impacted by: Other (Cognitive impairment, chronic diarrhea) Social Determinants Patient?s care significantly limited by Social Determinants of Health including: Problems related to primary support group Discharge Plan Discharge Clinical Impression: Dark stools Patient Disposition: Home, Self-Care Instructions: Upper GI Series (DC) Additional Instructions: As we discussed, your lab work today was overall reassuring. The stool sample did not show any evidence of blood. Please follow up with your PCP within 1 week. If you see any black, tarry looking stools, please return to the ED for additional assessment. With any worsening complaints at any time, seek re-evaluation in the ED. Prescriptions: No Action midodrine 5 mg Tablet 5 mg PO TID@0900,1300,1700 Qty: 90 0RF sertraline 100 mg Tablet 100 mg PO DAILY Qty: 30 0RF tramadol 50 mg Tablet 25 mg PO Q4H PRN (Reason: mod to severe pain) Qty: 14 0RF hydroxyzine HCl 25 mg Tablet 25 mg PO BID PRN (Reason: Anxiety) Qty: 60 0RF acetaminophen 650 mg Tablet Extended Release 650 mg PO Q8H PRN (Reason: Pain) Qty: 90 0RF levothyroxine 50 mcg tablet 50 mcg PO DAILY@0600 Qty: 30 0RF lidocaine 5 % adhesive patch,medicated 1 patch topical DAILY PRN (Reason: Pain) Qty: 30 0RF mirtazapine 15 mg Tablet 15 mg PO BEDTIME Qty: 30 0RF albuterol sulfate 90 mcg/actuation HFA aerosol inhaler 1 inh inhalation QID PRN (Reason: wheezing/SOB) Qty: 6.7 0RF Rexulti 0.5 mg tablet 0.5 mg PO BEDTIME 30 Days Qty: 30 0RF Referrals: [facility] [place] [facility] [place]Provider Group, Family Practice] [facility] [place] [facility] [Provider Group, Gastroenterology] Print Language: Slovenian
[2025-09-13 16:54] LABS: MANUAL DIFF FLAG NO
[2025-09-13 16:56] LABS: Hematocrit 37.9 % (37.0-47.0); Hemoglobin 12.9 g/dl (12.0-16.0); Imm Gran Abs Auto 0.02 X10*3/uL (0.00-0.03); Imm Gran Pct Auto 0.3 % (0.0-0.4); Lymphocytes Absolute Auto 2.2 X10*3/uL (1.2-4.9); Mean Corpuscular HGB Conc 34.0 g/dl (31.0-35.0); Mean Corpuscular Hemoglobin 29.7 pg (27.0-33.0); Mean Corpuscular Volume 87.1 fL (80.0-98.0); NRBC Abs Auto 0.000 X10*3/uL (0.0-0.012); NRBC Pct Auto 0.0 /100WBC (0.0-0.2); Platelet Count 206 X10*3/uL (160-400); Red Blood Count 4.35 X10*6/uL (4.20-5.50); White Blood Count 7.0 X10*3/uL (4.8-10.8)
[2025-09-13 17:10] LABS: Alanine Aminotransferase 26 U/L (0-31); Albumin Level 5.0 g/dL (3.5-5.0); Alkaline Phosphatase 64 U/L (39-117); Anion Gap 15 (12-20); Aspartate Amino Transferase 27 U/L (5-31); Blood Urea Nitrogen 22 mg/dL (9-16); Calcium 9.9 mg/dL (8.4-10.2); Carbon Dioxide 24 mmol/L (22-29); Chloride 110 mmol/L (96-108); Creatinine Clr Calc Pharmacy 37.0; Estimated Glomerular Filt Rate 47; Lipase 30 U/L (8-78); Magnesium 2.1 mg/dL (1.6-2.6); Potassium 4.0 mmol/L (3.3-5.1); Sodium 145 mmol/L (135-145); Total Protein 7.1 g/dL (6.5-8.0)
--- OUTSIDE RECORDS SUMMARY | 2025-09-13 18:30 | XMS_ITS | Clinical Summary ---
Author Organization [facility] Address [address] [facility] [address] [place] [address] Phone Care Team Providers Care Honeycomb Blanket Maker Name Role Phone Laura Chapa MD Primary Care Provider [phone] Allergies Active Allergy Reactions Criticality Noted Date [...] Active Problems Problem Noted Date Diagnosed Date [place] adverse reaction 02/04/2024 Stage 3a chronic kidney [...] [place] Care Teams Honeycomb Blanket Maker Relationship Specialty Start Date End Date Laura Chapa MD [address] PCP - General Internal Medicine 11/06/23
--- OUTSIDE RECORDS SUMMARY | 2025-09-13 18:30 | XMS_ITS | Clinical Summary ---
Author Organization [address] [facility] Address [address] [place] [address] Phone Care Team Providers Care Brake Tester Name Role Phone Unavailable Primary Care Provider Unavailabl e Social History Tobacco Use Types Packs/Day Years Used Date Smoking Tobacco: Never Assessed Comments Unknown Sex and Gender Information Value Date Recorded Sex Assigned at Not on file Legal Sex Female 11:50 AM EDT Gender Identity Not on file Sexual Orientation Not on file Plan of Treatment Health Maintenance Due Date [...] Health Screening 02/15/2025 COVID-19 Vaccine (1 - 2024-2 6 season) 2025 Influenza Vaccine (#1) 2025 DTaP,Tdap,and [...] to complete this topic Insurance MEDICARE [place]
[2025-09-13 18:54] LABS: OBS Int Ctl Valid YES; OBS1 NEGATIVE (NEGATIVE)
[2025-09-13 19:39] VITALS: BP 113/62; PULSE 71; RESP 18; TEMP 36.5; O2SAT 96
== END 2025-09-13 19:39 | disposition home or self-care (01) ==
PROVIDERS: Nurse Practitioner; Physician Assistant Medical; Emergency Provider Emergency Medicine
DX: R19.7 Diarrhea, unspecified (principal); R11.2 Nausea with vomiting, unspecified; R42 Dizziness and giddiness; Z79.899 Other long term (current) drug therapy
CPT/HCPCS: 36415; 80053; 82272; 83690; 83735; 85025; 86850; 86900; 86901; 99283